=== PATIENT | male | born 1955 | race Hispanic/Latino ===

== ENCOUNTER 2021-06-13 10:35 | Inpatient (IN) | payer OTHER ==
[2021-06-13] MEDS ORDERED: FAMOTIDINE 20 MG/2 ML VIAL IV ONE ×2 (12:17→23:11)
[2021-06-13] MEDS ORDERED: NA CHLORIDE 0.9% 1,000 ML ONE (12:17)
[2021-06-13] MEDS ORDERED: AZITHROMYCIN 500 MG INJ IVPB ONE (12:17)
[2021-06-13] MEDS ORDERED: CEFTRIAXONE 1000 MG/VIAL ONE (12:17)
[2021-06-13] MEDS ORDERED: NA CHLORIDE 0.9% 250 ML ONE (12:17)
[2021-06-13 12:24] LABS: Absolute Lymphocytes (CBC) 0.8 K/uL (0.7-4.9); Hematocrit 44.8 % (39.6-49.0); Lymphocytes % 15.2 % (15.3-44.8); MPV 8.4 fL (7.6-11.3); RBC Red Blood Cell Count 4.87 M/uL (4.33-5.43)
[2021-06-13 12:25] LABS: Protime INR 1.01
--- NOTE | 2021-06-13 12:51 | RAD REPORT ---
EXAM DESCRIPTION: RAD - Chest Single View - 06/13/2021 12:35 pm CLINICAL HISTORY: COUGH Chest pain. COMPARISON: ABDOMEN ACUTE SERIES dated 01/09/2012 FINDINGS: Portable technique limits examination quality. Moderate bibasilar lung infiltrates are present, more severe on the left, most compatible with pneumo karen. The heart is normal in size. No displaced fractures.
[2021-06-13 12:55] LABS: ALT/SGPT 135 U/L (12-78); AST/SGOT 131 U/L (15-37); Albumin 2.8 g/dL (3.4-5.0); Alkaline Phosphatase 72 U/L (45-117); BUN Blood Urea Nitrogen 12 mg/dL (7-18); Bicarbonate 28 mmol/L (21-32); Bilirubin Direct 0.2 mg/dL (0-0.2); Bilirubin Total 0.5 mg/dL (0.2-1.0); Ferritin 3979.8 ng/mL (26-388); Glucose Level 98 mg/dL (74-106); Magnesium 2.5 mg/dL (1.8-2.4); NT PRO-BNP 58 pg/mL (<125); Potassium 3.7 mmol/L (3.5-5.1); Protein, Total 8.3 g/dL (6.4-8.2); Sodium Level 136 mmol/L (136-145); Troponin (Emerg Dept Use Only) < 0.02 ng/mL (0.0-0.045)
[2021-06-13 14:26] LABS: SARS-COV-2 RT PCR POSITIVE (NEGATIVE)
--- NOTE | 2021-06-13 14:45 | EDPHYS ---
Physician Documentation [facility] Name: Ye Coleman Age: 66 yrs Sex: Male : 1955 Arrival Date: 06/13/2021 Time: 10:37 Bed 17 Private MD: TIFFANY Physician Lloyd Donohue HPI: 06/13 14:37 This 66 yrs old Male presents to ER via Ambulatory with complaints of Cough, feroz General Weakness, Shortness Of Breath. 14:37 The patient or guardian reports cough, difficulty breathing, flu symptoms, arthralgias, feroz low-grade fever, myalgias. Onset: The symptoms/episode began/occurred 10 day(s) ago. Severity of symptoms: At their worst the symptoms were moderate, in the emergency department the symptoms are unchanged. Modifying factors: The symptoms are alleviated by nothing, the symptoms are aggravated by nothing. The patient has not experienced similar symptoms in the past. Historical: - Allergies: 11:34 No Known Allergies; iw - Home Meds: 11:34 None [Active]; iw - PMHx: 11:34 None; iw - PSHx: 11:34 Appendectomy; iw - Immunization history:: Client reports having NOT received the Covid vaccine. - Social history:: Smoking status: Patient/guardian denies using tobacco. ROS: 14:38 Constitutional: Negative for fever, chills, and weight loss, Eyes: Negative for injury, feroz pain, redness, and discharge, ENT: Negative for injury, pain, and discharge, Neck: Negative for injury, pain, and swelling, Abdomen/GI: Negative for abdominal pain, nausea, vomiting, diarrhea, and constipation, Back: Negative for injury and pain, : Negative for injury, bleeding, discharge, and swelling, MS/Extremity: Negative for injury and deformity, Skin: Negative for injury, rash, and discoloration, Neuro: Negative for headache, weakness, numbness, tingling, and seizure, Psych: Negative for depression, anxiety, suicide ideation, homicidal ideation, and hallucinations, Allergy/Immunology: Negative for hives, rash, and allergies, Endocrine: Negative for neck swelling, polydipsia, polyuria, polyphagia, and marked weight changes, Hematologic/Lymphatic: Negative for swollen nodes, abnormal bleeding, and unusual bruising. 14:38 Cardiovascular: Positive for palpitations. 14:38 Respiratory: Positive for orthopnea, shortness of breath, wheezing, expiratory. Exam: 14:38 Constitutional: This is a well developed, well nourished patient who is awake, alert, feroz and in no acute distress. Head/Face: Normocephalic, atraumatic. Eyes: Pupils equal round and reactive to light, extra-ocular motions intact. Lids and lashes normal. Conjunctiva and sclera are non-icteric and not injected. Cornea within normal limits. Periorbital areas with no swelling, redness, or edema. ENT: Nares patent. No nasal discharge, no septal abnormalities noted. Tympanic membranes are normal and external auditory canals are clear. Oropharynx with no redness, swelling, or masses, exudates, or evidence of obstruction, uvula midline. Mucous membranes moist. Neck: Trachea midline, no thyromegaly or masses palpated, and no cervical lymphadenopathy. Supple, full range of motion without nuchal rigidity, or vertebral point tenderness. No Meningismus. Chest/axilla: Normal chest wall appearance and motion. Nontender with no deformity. No lesions are appreciated. Cardiovascular: Regular rate and rhythm with a normal S1 and S2. No gallops, murmurs, or rubs. Normal PMI, no JVD. No pulse deficits. Abdomen/GI: Soft, non-tender, with normal bowel sounds. No distension or tympany. No guarding or rebound. No evidence of tenderness throughout. Back: No spinal tenderness. No costovertebral tenderness. Full range of motion. Male : Normal genitalia with no discharge or lesions. Skin: Warm, dry with normal turgor. Normal color with no rashes, no lesions, and no evidence of cellulitis. MS/ Extremity: Pulses equal, no cyanosis. Neurovascular intact. Full, normal range of motion. Neuro: Awake and alert, GCS 15, oriented to person, place, time, and situation. Cranial nerves II-XII grossly intact. Motor strength 5/5 in all extremities. Sensory grossly intact. Cerebellar exam normal. Normal gait. Psych: Awake, alert, with orientation to person, place and time. Behavior, mood, and affect are within normal limits. 14:38 ECG was reviewed by the Attending Physician. 14:38 Respiratory: mild respiratory distress is noted, Respirations: labored breathing, that is mild, Breath sounds: decreased breath sounds, rhonchi, wheezing: expiratory Respiratory rate: 24 Vital Signs: 11:33 BP 131 / 81; Pulse 96; Resp 20; Temp 98.0; Pulse Ox 88% on R/A; Weight 63.5 kg; Height iw 5 ft. 6 in. (167.64 cm); 12:31 BP 139 / 79; Pulse 94; Resp 20; Pulse Ox 94% on 3 lpm NC; jl7 13:15 BP 111 / 75; Pulse 91; Resp 21; Pulse Ox 95% 3 lpm ; jl7 14:00 BP 118 / 71; Pulse 88; Resp 22; Pulse Ox 95% ; jl7 14:45 BP 120 / 67; Pulse 85; Resp 19; Pulse Ox 94% on 3 lpm NC; jl7 15:30 BP 124 / 80; Pulse 85; Resp 20; Pulse Ox 95% on 3 lpm NC; jl7 16:15 BP 105 / 68; Pulse 81; Resp 21; Pulse Ox 95% on 3 lpm NC; jl7 20:11 BP 106 / 65; Pulse 72; Resp 18; Pulse Ox 97% on R/A; tw5 23:18 BP 121 / 70; Pulse 69; Resp 18; Pulse Ox 93% on 3 lpm NC; tw5 /04 00:32 BP 105 / 62; Pulse 65; Resp 18; Temp 97.9; Pulse Ox 95% 4 lpm ; sv1 03:00 BP 120 / 70; Pulse 65; Resp 18; Pulse Ox 95% 4 lpm ; Pain 0/10; sv1 10:56 BP 132 / 72; Pulse 84; Resp 18; Pulse Ox 95% on 2 lpm NC; arnold 06/13 11:33 Body Mass Index 22.60 (63.50 kg, 167.64 cm) iw MDM: 06/13 11:36 Patient medically screened. feroz 14:39 Differential diagnosis: Anemia Bronchitis CHF exacerbation, Chronic Obstructive feroz Pulmonary Disease CHF, URI, pneumonia, pulmonary edema, Pulmonary Embolism reactive airway disease, Sepsis Unstable Angina. Antibiotic administration: Rocephin and Zithromax given. The patient's Wells Deep Vein Thrombosis Score was calculated as follows: Total Score: 0-2 Pts- Low Risk. Differential Diagnosis: Bronchitis Influenza Upper Respiratory Infection Sinusitis Pharyngitis Allergic Rhinitis Asthma Exacerbation Viral Syndrome Pneumonia. The patient's pulmonary embolism risk score was calculated as follows: Total Score: 0-2 points. This patient was found to be at low risk for a pulmonary embolism by using the Well's assessment criteria. Immunization status: Pneumococcal vaccine: Influenza vaccine: Data reviewed: vital signs, nurses notes, lab test result(s), EKG, radiologic studies, plain films. Data interpreted: front desk monitor: rate is 94 beats/min, rhythm is regular, Pulse oximetry: on room air is 94 %. Test interpretation: by ED physician or midlevel provider: ECG, plain radiologic studies. Counseling: I had a detailed discussion with the patient and/or guardian regarding: the historical points, exam findings, and any diagnostic results supporting the discharge/admit diagnosis, lab results, radiology results, the need for further work-up and treatment in the hospital. 06/13 11:58 Order name: Basic Metabolic Panel [facility] 06/13 11:58 Order name: CBC with Diff [facility] 06/13 11:58 Order name: LFT's [facility] 06/13 11:58 Order name: Magnesium [facility] 06/13 11:58 Order name: NT PRO-BNP [facility] 06/13 11:58 Order name: PT-INR [facility] 06/13 11:58 Order name: Troponin (emerg Dept Use Only) [facility] 06/13 11:58 Order name: Blood Culture Adult (2) [facility] 06/13 11:58 Order name: Ferritin; Complete Time: 14:36 [facility] 06/13 11:58 Order name: CRP; Complete Time: 14:36 [facility] 06/13 11:58 Order name: COVID-19/FLU A+B/RSV (Document "Date of Onset" if Symptomatic); Complete [facility] Time: 14:36 06/13 11:58 Order name: Lactate; Complete Time: 14:36 [facility] 06/13 11:58 Order name: Procalcitonin; Complete Time: 14:36 [facility] 06/13 11:59 Order name: Urine Culture [facility] 06/13 11:58 Order name: XRAY Chest (1 view); Complete Time: 14:36 [facility] 06/13 11:59 Order name: Basic Metabolic Panel; Complete Time: 14:36 EDDE 06/13 11:59 Order name: CBC with Automated Diff; Complete Time: 14:36 EDDE 06/13 11:59 Order name: Liver (Hepatic) Function; Complete Time: 14:36 EDDE 06/13 11:59 Order name: Magnesium; Complete Time: 14:36 EDMS 06/13 11:59 Order name: NT PRO-BNP; Complete Time: 14:36 EDMS 06/13 11:59 Order name: Protime (+INR); Complete Time: 14:36 EDMS 06/13 11:59 Order name: Troponin (Emerg Dept Use Only); Complete Time: 14:36 EDMS 06/14 03:08 Order name: CBC with Automated Diff EDMS 06/14 03:24 Order name: D-Dimer EDMS 06/14 03:50 Order name: Phosphorus EDMS 06/14 03:50 Order name: C-Reactive Protein EDMS 06/14 03:50 Order name: Magnesium EDMS 06/14 03:50 Order name: Ferritin EDMS 06/14 04:25 Order name: CBC Smear Scan EDMS 06/14 07:35 Order name: Comprehensive Metabolic Panel EDMS 06/13 11:58 Order name: EKG; Complete Time: 11:59 [facility] 06/13 11:58 Order name: Cardiac monitoring; Complete Time: 12:11 [facility] 06/13 11:58 Order name: EKG - Nurse/Tech; Complete Time: 12:11 [facility] 06/13 11:58 Order name: IV Saline Lock; Complete Time: 12:11 [facility] 06/13 11:58 Order name: Labs collected and sent; Complete Time: 12:11 [facility] 06/13 11:58 Order name: O2 Per Protocol; Complete Time: 12:10 [facility] 06/13 11:58 Order name: O2 Sat Monitoring; Complete Time: 12:10 [facility] 06/14 09:13 Order name: CT EDMS EC:38 Rate is 94 beats/min. Rhythm is regular. QRS [place] is Normal. [place] interval is normal. QRS ferzo interval is normal. QT interval is normal. No Q waves. T waves are Normal. No ST changes noted. Clinical impression: NSR w/ Non-specific ST/T Changes and No evidence of ischemia. Interpreted by me. Reviewed by me. Administered Medications: 12:32 Drug: Pepcid (famotidine) 20 mg Route: IVP; Site: left forearm; jl7 12:45 Follow up: Response: No adverse reaction jl7 12:32 Drug: Rocephin (cefTRIAXone) 1 grams Route: IV; Rate: per protocol; Site: left forearm; jl7 12:35 Follow up: Response: No adverse reaction; IV Status: Completed infusion 7 12:32 Drug: NS 0.9% 1000 ml Route: IV; Rate: 125 ml/hr; Site: left forearm; 7 16:37 Follow up: Response: No adverse reaction; IV Status: Infusion continued upon admission 7 12:35 Drug: Zithromax (azithromycin) 500 mg Route: IVPB; Infused Over: 1 hrs; Site: right jl7 forearm; 13:35 Follow up: Response: No adverse reaction; IV Status: Completed infusion 7 15:15 Drug: Aspirin Chewable Tablet 324 mg Route: PO; 6 16:04 Follow up: Response: No adverse reaction [facility] 06/14 00:36 Follow up: Response: No adverse reaction sv1 02:05 Follow up: Response: No adverse reaction sv1 03 15:15 Drug: Lovenox (enoxaparin) 60 mg Route: Sub-Q; Site: right upper arm; 6 16:04 Follow up: Response: No adverse reaction [facility] 06/14 00:35 Follow up: Response: No adverse reaction sv1 02:05 Follow up: Response: No adverse reaction sv1 03 15:16 Drug: SOLU-Medrol (methylPrednisoLONE) 125 mg Route: IVP; Site: left antecubital; [facility] 16:04 Follow up: Response: No adverse reaction [facility] 06/14 00:36 Follow up: Response: No adverse reaction; Wheezing diminished sv1 Disposition Summary: 06/13/21 14:44 Hospitalization Ordered Hospitalization Status: Inpatient Admission feroz Provider: Albino Butt cha Condition: Fair feroz Problem: new feroz Symptoms: have worsened feroz Bed/Room Type: Standard feroz Location: Telemetry/MedSurg (Inpatient)(06/14/21 17:16) dw Room Assignment: [facility](06/14/21 17:16) dw Diagnosis - Coronavirus infection, unspecified feroz - Pneumonia due to SARS-associated coronavirus feroz - Dyspnea feroz - Hypoxemia feroz Forms: - Medication Reconciliation Form feroz - SBAR form feroz Signatures: Dispatcher [employer] EDMS Anastasiya Osborne RN RN mw Woody, Diana, RN RN dw Anderson, Corey, MD MD cha Williams, Irene, RN RN iw Leal, Jahala, RN RN jl7 Bibi Mckeon RN RN jh6 Gerardo Logan RN sv1 Corrections: (The following items were deleted from the chart) 06/13 19:54 14:44 Telemetry/MedSurg (observation) [facility] 19:54 14:44 [facility] 06/14 17:16 06/13 19:54 [facility] 06/14 17:16 06/13 19:54 [facility]- dw
--- NOTE | 2021-06-13 14:45 | ER ---
Nurse's Notes [facility] Name: Ye Coleman Age: 66 yrs Sex: Male : 1955 Arrival Date: 06/13/2021 Time: 10:37 Bed 17 Private MD: Diagnosis: Coronavirus infection, unspecified;Pneumonia due to SARS-associated coronavirus;Dyspnea;Hypoxemia Presentation: 06/13 11:33 Chief complaint: Patient states: past three weeks has been feeling bad with fever , iw sometimes SOB, cough. Coronavirus screen: Client presents with at least one sign or symptom that may indicate coronavirus-19. Ebola Screen: Patient negative for fever greater than or equal to 101.5 degrees Fahrenheit, and additional compatible Ebola Virus Disease symptoms Patient denies exposure to infectious person. Patient denies travel to an Ebola-affected area in the 21 days before illness onset. No symptoms or risks identified at this time. Initial Sepsis Screen: Does the patient meet any 2 criteria? No. Patient's initial sepsis screen is negative. Does the patient have a suspected source of infection? No. Patient's initial sepsis screen is negative. Risk Assessment: Do you want to hurt yourself or someone else? Patient reports no desire to harm self or others. Onset of symptoms was June 07, 2021. 11:33 Method Of Arrival: Ambulatory iw 11:33 Acuity: EDMOND 3 iw Triage Assessment: 06/14 10:55 General: Appears in no apparent distress. Respiratory: Reports shortness of breath on arnold exertion when pt get up his O2 drops to 87-88 Respiratory: Reports Onset: The symptoms/episode began/occurred gradually. Historical: - Allergies: 06/13 11:34 No Known Allergies; iw - Home Meds: 11:34 None [Active]; iw - PMHx: 11:34 None; iw - PSHx: 11:34 Appendectomy; iw - Immunization history:: Client reports having NOT received the Covid vaccine. - Social history:: Smoking status: Patient/guardian denies using tobacco. Screenin:31 Abuse screen: Denies threats or abuse. Denies injuries from another. Nutritional jl7 screening: No deficits noted. Tuberculosis screening: No symptoms or risk factors identified. Fall Risk IV access (20 points). Total Ryan Fall Scale indicates No Risk (0-24 pts). Assessment: 12:36 General: Appears in no apparent distress. uncomfortable, Behavior is calm, cooperative, jl7 appropriate for age. Pain: Denies pain. Neuro: Level of Consciousness is awake, alert, obeys commands, Oriented to person, place, time, situation. Cardiovascular: Heart tones present Rhythm is sinus rhythm. Respiratory: Airway is patent Respiratory effort is even, unlabored, Respiratory pattern is regular, symmetrical, Breath sounds with crackles bilaterally. Breath sounds are diminished in right posterior middle lobe and right posterior lower lobe. Derm: Skin is pink, warm \T\ dry. 19:17 Reassessment: Sandee Coleman, pts son, . jl7 20:11 General: Appears in no apparent distress. comfortable, Behavior is calm. Respiratory: tw5 Airway is patent Trachea midline Respiratory effort is even, unlabored, Respiratory pattern is regular. 23:18 General: Appears in no apparent distress. Behavior is calm, cooperative. tw5 06/14 06:55 Reassessment: Slept most of the night. Vital signs appear stable. . sv1 10:56 Reassessment: upon assessment pt O2 lying position is 93-95 on 2L NC. when sitting pt arnold up pt O2 drops to 87-[address] O2 2l NC back on PT and O2 went up 94. Vital Signs: 06/13 11:33 BP 131 / 81; Pulse 96; Resp 20; Temp 98.0; Pulse Ox 88% on R/A; Weight 63.5 kg; Height iw 5 ft. 6 in. (167.64 cm); 12:31 BP 139 / 79; Pulse 94; Resp 20; Pulse Ox 94% on 3 lpm NC; jl7 13:15 BP 111 / 75; Pulse 91; Resp 21; Pulse Ox 95% 3 lpm ; jl7 14:00 BP 118 / 71; Pulse 88; Resp 22; Pulse Ox 95% ; jl7 14:45 BP 120 / 67; Pulse 85; Resp 19; Pulse Ox 94% on 3 lpm NC; jl7 15:30 BP 124 / 80; Pulse 85; Resp 20; Pulse Ox 95% on 3 lpm NC; jl7 16:15 BP 105 / 68; Pulse 81; Resp 21; Pulse Ox 95% on 3 lpm NC; jl7 20:11 BP 106 / 65; Pulse 72; Resp 18; Pulse Ox 97% on R/A; tw5 23:18 BP 121 / 70; Pulse 69; Resp 18; Pulse Ox 93% on 3 lpm NC; tw5 06/14 00:32 BP 105 / 62; Pulse 65; Resp 18; Temp 97.9; Pulse Ox 95% 4 lpm ; sv1 03:00 BP 120 / 70; Pulse 65; Resp 18; Pulse Ox 95% 4 lpm ; Pain 0/10; sv1 10:56 BP 132 / 72; Pulse 84; Resp 18; Pulse Ox 95% on 2 lpm NC; arnold 06/13 11:33 Body Mass Index 22.60 (63.50 kg, 167.64 cm) iw ED Course: 06/13 10:37 Patient arrived in ED. am2 11:34 Triage completed. iw 11:36 Lloyd Donohue MD is Attending Physician. feroz 11:36 Arm band placed on. iw 11:38 Nan Ford, RN is Primary Nurse. jl7 11:55 First set of blood cultures drawn by me. Missed attempt(s): 20 gauge in left forearm. jl7 Bleeding controlled, band aid applied, catheter tip intact. 11:59 Inserted saline lock: 20 gauge in left forearm, using aseptic technique. Blood jl7 collected. 11:59 Initial lab(s) drawn, by me, sent to lab. Second set of blood cultures drawn by me. jl7 COVID swab sent to lab. Flu and/or RSV swab sent to lab. 12:11 EKG done, by ED staff, reviewed by Lloyd Donohue MD. dh3 12:31 Patient has correct armband on for positive identification. Placed in gown. Bed in low jl7 position. Call light in reach. Side rails up X 1. safety investigator on. Pulse ox on. NIBP on. 12:32 Basic Metabolic Panel Sent. jl7 12:32 CBC with Diff Sent. jl7 12:32 LFT's Sent. jl7 12:32 Magnesium Sent. jl7 12:32 NT PRO-BNP Sent. jl7 12:32 PT-INR Sent. jl7 12:32 Troponin (emerg Dept Use Only) Sent. jl7 12:35 XRAY Chest (1 view) In Process Unspecified. EDMS 14:43 Albino Butt is Hospitalizing Provider. feroz 19:15 Primary Nurse role handed off by Nan Ford RN mw2 19:16 Nan Ford RN is Primary Nurse. [facility] 19:17 No provider procedures requiring assistance completed. Patient admitted, IV remains in [facility] place. intact, No redness/swelling at site. 20:11 Appears to be sleeping. tw5 20:11 Door closed. Noise minimized. Lights dimmed. Moved to private room. Warm blanket given. tw5 Verbal reassurance given. Administered Medications: 12:32 Drug: Pepcid (famotidine) 20 mg Route: IVP; Site: left forearm; [facility] 12:45 Follow up: Response: No adverse reaction [facility] 12:32 Drug: Rocephin (cefTRIAXone) 1 grams Route: IV; Rate: per protocol; Site: left forearm; [facility] 12:35 Follow up: Response: No adverse reaction; IV Status: Completed infusion [facility] 12:32 Drug: NS 0.9% 1000 ml Route: IV; Rate: 125 ml/hr; Site: left forearm; [facility] 16:37 Follow up: Response: No adverse reaction; IV Status: Infusion continued upon admission [facility] 12:35 Drug: Zithromax (azithromycin) 500 mg Route: IVPB; Infused Over: 1 hrs; Site: right [facility] forearm; 13:35 Follow up: Response: No adverse reaction; IV Status: Completed infusion [facility] 15:15 Drug: Aspirin Chewable Tablet 324 mg Route: PO; 6 16:04 Follow up: Response: No adverse reaction [facility] 06/14 00:36 Follow up: Response: No adverse reaction sv1 02:05 Follow up: Response: No adverse reaction sv1 06/13 15:15 Drug: Lovenox (enoxaparin) 60 mg Route: Sub-Q; Site: right upper arm; [facility] 16:04 Follow up: Response: No adverse reaction [facility] 06/14 00:35 Follow up: Response: No adverse reaction sv1 02:05 Follow up: Response: No adverse reaction sv1 06/13 15:16 Drug: SOLU-Medrol (methylPrednisoLONE) 125 mg Route: IVP; Site: left antecubital; [facility] 16:04 Follow up: Response: No adverse reaction [facility] 06/14 00:36 Follow up: Response: No adverse reaction; Wheezing diminished sv1 Outcome: 06/13 14:44 Decision to Hospitalize by Provider. feroz 19:17 Admitted to ER Hold. Please see [facility] for further documentation. [facility] 19:17 Condition: stable 19:17 Discharge instructions given to patient, family, Instructed on the need for admit, Demonstrated understanding of instructions. 06/14 18:44 Patient left the ED. arnold Signatures: Dispatcher [employer] EDLloyd Love MD MD cha Williams, Irene, RN RN Nan Ford RN RN jl7 Roxana Powers [facility] Neelam Rodriguez 3 Erick Askew 2 Carol Milton 5 Bibi Mckeon RN RN jh6 Gerardo Logan RN RN sv1 Au-StagerColleen RN RN arnold Corrections: (The following items were deleted from the chart) 06/13 11:35 11:33 Temp 98.0F; [facility] 16:36 12:15 Zithromax (azithromycin) 500 mg IVPB in right forearm over 1 hrs [facility] jl7 16:37 13:15 Response: No adverse reaction; IV Status: Completed infusion 7 jl7 06/14 12:35 10:56 Reassessment: upon assessment pt O2 drops to 87-88 from lying to sitting. arnold arnold
[2021-06-13] MEDS ORDERED: METHYLPREDNISOLONE 125 MG INJ ONE (15:09)
[2021-06-13] MEDS ORDERED: ENOXAPARIN 60 MG/0.6 ML SQ ONE (15:09)
[2021-06-13] MEDS ORDERED: ASPIRIN EC 81 MG TAB PO ONE (15:09)
--- NOTE | 2021-06-13 16:43 | P.HP ---
Certification for Inpatient Patient admitted to: Observation With expected LOS: <2 Midnights Practitioner: I am a practitioner with admitting privileges, knowledge of patient current condition, hospital course, and medical plan of care. Services: Services provided to patient in accordance with Admission requirements found in Title 42 Section 412.3 of the Code of Federal Regulations Patient History Date of Service: 06/13/21 Reason for admission: Shortness of breath History of Present Illness: 66-year-old gentleman with no known past medical history presents to the emergency department with a complaint of progressive shortness of breath of about 2 weeks duration. Patient also reports cough productive of greenish sputum. Symptoms preceded by upper respiratory symptoms including nasal congestion and fever. Patient reports shortness of breath only with exertion. His oxygen saturation in the ED is 88% on room air. Patient was placed on oxygen by nasal cannula. Chest x-ray demonstrated bilateral infiltrates, severe on the left. Patient has no sepsis, no leukocytosis. Liver enzymes elevated. Patient is hospitalized for further management. Allergies No Known Allergies Allergy (Verified 01/09/12 14:21) Home Medications: Hydrocodone/Acetaminophen [Vicodin 5-500 Tablet] 1 - 2 each PO Q4HP PRN #30 tablet 01/10/12 - Past Medical/Surgical History Diabetic: No -: None - Social History Smoking Status: Former smoker Alcohol use: Yes CD- Drugs: No Caffeine use: Yes Review of Systems Other: Except as documented, all other systems reviewed and negative. Physical Examination - Physical Exam General: Alert, In no apparent distress, Oriented x3 HEENT: Normocephalic, PERRLA, Mucous membr. moist/pink, Sclerae nonicteric Neck: Supple, JVD not distended Respiratory: Normal air movement, Crackles/rales Cardiovascular: No edema, Regular rate/rhythm, Normal S1 S2, No murmurs Gastrointestinal: Normal bowel sounds, Soft and benign, Non-distended, No tenderness Musculoskeletal: No swelling, No tenderness Integumentary: No rashes, No erythema, No cyanosis Neurological: Normal speech, Normal strength at 5/5 x4 extr, Cranial nerves 3-12 intact Lymphatics: No axilla or inguinal lymphadenopathy - Studies Laboratory Data (last 24 hrs) 06/13/21 11:59: PT 11.6, INR 1.01 06/13/21 11:59: WBC 5.50, Hgb 14.7, Hct 44.8, Plt Count 266 06/13/21 11:59: Sodium 136, Potassium 3.7, BUN 12, Creatinine 0.98, Glucose 98, Magnesium 2.5 H, Total Bilirubin 0.5, AST 131 H, ALT 135 H, Alkaline Phosphatase 72 Assessment and Plan - Problems (Diagnosis) (1) Pneumonia due to COVID-19 virus Current Visit: Yes Status: Acute (2) Acute respiratory failure with hypoxia Current Visit: Yes Status: Acute - Plan Place under observation. COVID-19 protocol initiated with IV steroid. Vitamins and zinc supplementation. Oxygen as needed. Assess for home oxygen if patient respiratory status condition remained stable by tomorrow. Patient was reluctant for admission and would like to be discharged as soon as possible. Consult to pulmonary. Monitor inflammatory markers. - Advance Directives Does patient have a Living Will: No Does patient have a Durable POA for Healthcare: No
[2021-06-13] MEDS ORDERED: ACETAMINOPHEN 500 MG TAB PO PRN (18:54)
[2021-06-13 19:07] VITALS: BMI 22.6
[2021-06-13] MEDS: FAMOTIDINE 20 MG/2 ML VIAL IV SCH (21:00)
[2021-06-13] MEDS: METHYLPREDNISOLONE 40 MG INJ IV SCH (21:00)
[2021-06-13] MEDS ORDERED: METHYLPREDNISOLONE 40 MG INJ ONE (23:11)
[2021-06-14 02:59] LABS: Absolute Lymphocytes (CBC) 0.6 K/uL (0.7-4.9); Hematocrit 41.4 % (39.6-49.0); Lymphocytes % 26.4 % (15.3-44.8); MPV 8.1 fL (7.6-11.3)
[2021-06-14 03:50] LABS: Ferritin 3283.1 ng/mL (26-388); Magnesium 2.8 mg/dL (1.8-2.4); Phosphorus 3.2 mg/dL (2.5-4.9)
[2021-06-14 04:24] LABS: Blood Morphology Comment NOT SEEN (NOT SEEN); Platelet Estimate ADEQ; White Blood Cell Scan OK (OK)
[2021-06-14 07:35] LABS: ALT/SGPT 116 U/L (12-78); AST/SGOT 100 U/L (15-37); Albumin 2.3 g/dL (3.4-5.0); Alkaline Phosphatase 62 U/L (45-117); BUN Blood Urea Nitrogen 17 mg/dL (7-18); Bicarbonate 27 mmol/L (21-32); Bilirubin Total 0.4 mg/dL (0.2-1.0); Glucose Level 158 mg/dL (74-106); Potassium 4.3 mmol/L (3.5-5.1); Protein, Total 7.4 g/dL (6.4-8.2); Sodium Level 139 mmol/L (136-145)
[2021-06-14] MEDS: METHYLPREDNISOLONE 40 MG INJ IV SCH ×2 (09:00→21:00)
[2021-06-14] MEDS: ENOXAPARIN 40 MG/0.4 ML SQ SCH ×2 (09:00)
[2021-06-14] MEDS ORDERED: PNEUMOCOCCAL VACCINE 0.5 ML IMVAC ONE (09:00)
[2021-06-14] MEDS ORDERED: INFLUENZA VACCINE (for 6+ mo) 0.5 ML DOSE IMVAC ONE (09:00)
[2021-06-14] MEDS: FAMOTIDINE 20 MG/2 ML VIAL IV SCH ×3 (09:00→21:00)
--- NOTE | 2021-06-14 09:12 | RAD REPORT ---
EXAM DESCRIPTION: CT - Chest Angio - 06/14/2021 7:09 am CLINICAL HISTORY: Cough COMPARISON: June 13, 2020 TECHNIQUE: Dynamically enhanced axial 3 mm thick images of the chest were obtained during administra tion of <100> mL Isovue 370 IV contrast. Coronal and oblique reconstruction images were generated and reviewed. Exam utilizes a protocol for optimal evaluation of pulmonary arterial tree. Maximum intensity projections 3D imaging was utilized All CT scans are performed using dose optimization technique as appropriate and may include automated exposure control or mA/KV adjustment according to patient size. FINDINGS: A pulmonary embolus is not seen. A thoracic aortic aneurysm is not noted. A pleural effusion is not seen. A pericardial effusion is not seen. Moderate left and [id number] right ground-glass opacities within the lungs. 16 millimeter nodul e right upper lobe. Borderline mediastinal lymphadenopathy IMPRESSION: Negative for a pulmonary embolism. Moderate left and [id number] right ground-glass opacities may represent Covid pneumonia 16 millimeter right upper lobe nodule may be infectious, inflammatory or neoplastic and can be monito red on subsequent examinations.
[2021-06-14] MEDS ORDERED: METHYLPREDNISOLONE 40 MG INJ ONE (10:36)
[2021-06-14] MEDS ORDERED: FAMOTIDINE 20 MG TAB ONE (10:37)
[2021-06-14] MEDS ORDERED: ENOXAPARIN 40 MG/0.4 ML SQ ONE (10:37)
--- NOTE | 2021-06-14 11:18 | EKG ---
Test Date: 2021-06-13 Test Time: 11:58:01 Rn Imaging: SHARDA MEASUREMENT RESULTS: Intervals: Rate: 94 OH: 142 QRSD: 76 QT: 356 QTc: 445 [place]: P: 35 OH: 142 QRS: 22 T: -7 INTERPRETIVE STATEMENTS: Normal sinus rhythm Normal ECG Compared to ECG 01/09/2012 06:15:14 No significant changes Electronically Signed On 06-14-21 11:14:23 HEALTH SERVICES ADMINISTRATOR by Matthew Tierney
--- NOTE | 2021-06-14 16:37 | P.CNS ---
Date of Consult: 06/14/21 Reason for Consult: COVID pneumonia Chief Complaint: Shortness of breath History of Present Illness: pt is 66 yrs of age [place] island[place] speaking only AW covid penumonia, progressive SOB and cough wants to go homeVery agitated Allergies No Known Allergies Allergy (Verified 01/09/12 14:21) Home Medications: NK [No Home Meds] 06/13/21 - Past Medical/Surgical History Diabetic: No -: None - Social History Smoking Status: Former smoker Alcohol use: Yes CD- Drugs: No Caffeine use: Yes Review of Systems is unable to be obtained Physical Examination General: Alert, Cooperative Respiratory: Clear to auscultation bilaterally, Diminished Cardiovascular: No edema, Regular rate/rhythm Laboratory Data (last 24 hrs) 06/14/21 02:26: Sodium 139, Potassium 4.3, BUN 17, Creatinine 0.69, Glucose 158 H, Total Bilirubin 0.4, AST 100 H, ALT 116 H, Alkaline Phosphatase 62 06/14/21 02:26: Phosphorus 3.2, Magnesium 2.8 H 06/14/21 02:26: WBC 2.10 L D, Hgb 13.7, Hct 41.4, Plt Count 254 - Problems (1) Pneumonia due to COVID-19 virus Current Visit: Yes Status: Acute Plan: AGe 66 AW COVID penumonia. Cond stabel Labs and Ct reviewed. RUL opacity Needs FU with F/u Ct in 1 month/ Former smoker High riks RUL lesion poss cancer/ Desat on sitting up CW steroids for now
--- NOTE | 2021-06-14 17:49 | P.PN ---
Date of Service: 06/14/21 Subjective: Feels little bit better today, breathing slightly easier Oxygen requirement increased Denies nausea/vomiting Upset that he did not eat much yesterday Feels like he may do better at home ROS: 10 point ROS as noted above, otherwise negative Physical exam GEN: Alert, oriented, NAD HEENT: Normal conjunctiva, sclera anicteric CV: Regular rate and rhythm, no edema Pulm: Mildly labored respirations on 3 L nasal cannula, SpO2: 90-92% at rest ABD: Soft, nontender, nondistended Integumentary: No rashes Neuro: Normal speech, normal affect Problem List Acute hypoxemic respiratory failure secondary to COVID-19 pneumonia Elevated D-dimer Continue steroids, vitamin supplementation Wean oxygen as tolerated Oxygen requirement increased overnight Inflammatory markers with some improvement but still remains significantly elevated Patient with desaturation down to lowmid 80s just with sitting up in bed to eat Patient will need to be discharged soon as possible, discussed high risk for the next 24 hours Pulmonology consulted Elevated D-dimer this morning, CTA ordered Dispo: Anticipate DC home tomorrow if he has some improvement. Will need home oxygen Time Spent Managing Pts Care (In Minutes): 35
[2021-06-15 04:11] LABS: Absolute Lymphocytes (CBC) 0.6 K/uL (0.7-4.9); Hematocrit 40.8 % (39.6-49.0); Lymphocytes % 9.6 % (15.3-44.8); MPV 8.3 fL (7.6-11.3); RBC Red Blood Cell Count 4.38 M/uL (4.33-5.43)
[2021-06-15 04:29] LABS: Potassium 3.9 mmol/L (3.5-5.1)
[2021-06-15 07:27] LABS: Ferritin 3011.1 ng/mL (26-388)
[2021-06-15 08:23] VITALS: O2SAT 94
[2021-06-15] MEDS: FAMOTIDINE 20 MG/2 ML VIAL IV SCH (08:49)
[2021-06-15] MEDS: METHYLPREDNISOLONE 40 MG INJ IV SCH (08:49)
[2021-06-15] MEDS: ENOXAPARIN 40 MG/0.4 ML SQ SCH (08:50)
[2021-06-15] MEDS ORDERED: POTASSIUM CL SA 10 MEQ TAB PO ONE (09:00)
[2021-06-15 10:16] VITALS: BP 111/63; TEMP 97.2
--- NOTE | 2021-06-15 18:01 | P.DS ---
Admission Date: 06/14/21 Discharge Date: 06/15/21 Disposition: ROUTINE DISCHARGE Discharge Condition: GOOD Reason for Admission: Shortness of breath Consultations: Pulmonology - Dr. Royal Procedures: CXR (06/12): Moderate bibasilar lung infiltrates are present, more severe on the left, most compatible with pneumonia. The heart is normal in size. No displaced fractures. CTA chest (06/14): IMPRESSION: Negative for a pulmonary embolism. Moderate left and abxm-lm-[id number] right ground-glass opacities may represent Covid pneumonia 16 millimeter right upper lobe nodule may be infectious, inflammatory or neoplastic and can be monitored on subsequent examinations. Problem List Acute hypoxemic respiratory failure secondary to COVID-19 pneumonia Brief History of Present Illness: 66-year-old gentleman with no known past medical history presents to the emergency department with a complaint of progressive shortness of breath of about 2 weeks duration. Patient also reports cough productive of greenish sputum. Symptoms preceded by upper respiratory symptoms including nasal congestion and fever. Patient reports shortness of breath only with exertion. His oxygen saturation in the ED is 88% on room air. Patient was placed on oxygen by nasal cannula. Chest x-ray demonstrated bilateral infiltrates, severe on the left. Patient has no sepsis, no leukocytosis. Liver enzymes elevated. Patient is hospitalized for further management. Hospital Course: Patient was treated with steroids, vitamin supplementation, and oxygen supplementation. He had gradual improvement of his symptoms and his inflammatory markers. Pulmonology was consulted. On day of discharge, patient was feeling better, stable on 2 L nasal cannula, asking to be discharged home. He is to follow-up with his PCP within 1 week Follow-up with Dr. Neves in [address] chest did not have a right upper lobe lesion/possible mass, he will need repeat CT chest in 1 month. This was discussed with the patient and his son Vital Signs/Physical Exam: Physical exam GEN: Alert, oriented, NAD HEENT: Normal conjunctiva, sclera anicteric CV: Regular rate and rhythm, no edema Pulm: Mildly labored respirations on 2 L nasal cannula, SpO2: 92-95% at rest ABD: Soft, nontender, nondistended Neuro: Normal speech, normal affect Temp Pulse Resp BP Pulse Ox 97.2 F 75 18 111/63 92 06/15/21 08:00 06/15/21 08:00 06/15/21 08:00 06/15/21 08:00 06/15/21 08:00 Laboratory Data at Discharge: WBC 6.40 K/uL (4.3-10.9) D 06/15/21 02:58 Hgb 13.5 g/dL (13.6-17.9) L 06/15/21 02:58 Hct 40.8 % (39.6-49.0) 06/15/21 02:58 Plt Count 344 K/uL (152-406) D 06/15/21 02:58 PT 11.6 SECONDS (9.5-12.5) 06/13/21 11:59 INR 1.01 06/13/21 11:59 Sodium 140 mmol/L (136-145) 06/15/21 02:58 Potassium 3.9 mmol/L (3.5-5.1) 06/15/21 02:58 BUN 21 mg/dL (7-18) H 06/15/21 02:58 Creatinine 0.88 mg/dL (0.55-1.3) 06/15/21 02:58 Glucose 155 mg/dL (74-106) H 06/15/21 02:58 Phosphorus 3.2 mg/dL (2.5-4.9) 06/14/21 02:26 Magnesium 3.0 mg/dL (1.8-2.4) H 06/15/21 02:58 Total Bilirubin 0.4 mg/dL (0.2-1.0) 06/14/21 02:26 AST 100 U/L (15-37) H 06/14/21 02:26 ALT 116 U/L (12-78) H 06/14/21 02:26 Alkaline Phosphatase 62 U/L (45-117) 06/14/21 02:26 Home Medications: Aspirin [Aspirin EC 81 MG] 81 mg PO DAILY 30 Days #30 tablet. 06/15/21 predniSONE [Prednisone*] 20 mg PO SEECOM 14 Days #21 tab 06/15/21 New Medications: Aspirin [Aspirin EC 81 MG] 81 mg PO DAILY 30 Days #30 tablet. predniSONE [Prednisone*] 20 mg PO SEECOM 14 Days #21 tab Physician Discharge Instructions: COVID pneumonia - discharged home with steroids and aspirin follow up with Dr. Royal in 2 weeks. You were noted to have a small area in the right upper lung concerning for a possible mass/lesion. This may be from infection, scar tissue, or possibly a tumor. Follow up with Dr. Royal, you will also need a repeat CT scan of your chest to re-evaluate that area after you recover from this COVID pneumonia. Quarantine for 7 more days. Use the Oxygen to keep your oxygen saturation > 90% Diet: Regular Activity: Ad selena Followup: Skinny Royal MD [ACTIVE - CAN ADMIT] - (Call to schedule appointment ) NONE,NONE [Primary Care Provider] - Time spent managing pt's care (in minutes): 45
== END 2021-06-15 09:50 | disposition home or self-care (01) | DRG 177 ==
LOC: ER 10:35 → ERHOLD 16:27 → OBSVTOIN 06-14 09:08 → 4TH 06-14 18:16
PROVIDERS: ADMIT Internal Medicine; ATTEND Hospitalist
DX: U07.1 COVID-19 (principal); J12.82 Pneumonia due to coronavirus disease 2019; J96.01 Acute respiratory failure with hypoxia; Z87.891 Personal history of nicotine dependence; Z79.82 Long term (current) use of aspirin; Z79.52 Long term (current) use of systemic steroids
CPT/HCPCS: 0241U; 36415; 71045; 71275; 80048; 80053; 80076; 82728; 83605; 83735; 83880; 84100; 84145; 84484; 85025; 85379; 85610; 86140; 87040; 93005; 94760; 96372; 99285; G0378; J0456; J1650; J2920; J2930; J7030; J7050; Q9967

== ENCOUNTER 2021-06-17 11:27 | Emergency (ER) | payer OTHER ==
[2021-06-17 13:27] LABS: Absolute Lymphocytes (CBC) 0.5 K/uL (0.7-4.9); Hematocrit 44.1 % (39.6-49.0); Lymphocytes % 7.1 % (15.3-44.8); MPV 7.6 fL (7.6-11.3); RBC Red Blood Cell Count 4.86 M/uL (4.33-5.43)
[2021-06-17 13:29] LABS: Protime INR 0.93
--- NOTE | 2021-06-17 13:36 | RAD REPORT ---
EXAM DESCRIPTION: RAD - Chest Single View - 06/17/2021 1:29 pm CLINICAL HISTORY: SOB COMPARISON: Chest Single View dated 06/13/2021; ABDOMEN ACUTE SERIES dated 01/09/2012; Chest Angio date d 06/14/2021 FINDINGS: Lines: None. Lungs: Worsening bilateral airspace disease which is eccentric to the left. There are areas of both p atchy opacities and more consolidative process. Pleural: No significant pleural effusions or pneumothorax. Cardiac: The heart size is within normal limits. Bones: No acute fractures. Other: IMPRESSION: Worsening airspace disease concerning for multifocal pneumonia, probably Covid-19.
[2021-06-17 13:49] LABS: ALT/SGPT 256 U/L (12-78); AST/SGOT 198 U/L (15-37); Albumin 2.8 g/dL (3.4-5.0); Alkaline Phosphatase 81 U/L (45-117); BUN Blood Urea Nitrogen 16 mg/dL (7-18); Bicarbonate 26 mmol/L (21-32); Bilirubin Direct 0.2 mg/dL (0-0.2); Bilirubin Total 0.6 mg/dL (0.2-1.0); Glucose Level 119 mg/dL (74-106); Magnesium 2.7 mg/dL (1.8-2.4); NT PRO-BNP 407 pg/mL (<125); Potassium 3.9 mmol/L (3.5-5.1); Protein, Total 7.6 g/dL (6.4-8.2); Sodium Level 137 mmol/L (136-145); Troponin (Emerg Dept Use Only) < 0.02 ng/mL (0.0-0.045)
[2021-06-17 13:58] LABS: Blood Morphology Comment NOT SEEN (NOT SEEN); Platelet Estimate INCR; White Blood Cell Scan OK (OK)
--- NOTE | 2021-06-17 14:01 | EDPHYS ---
Physician Documentation [facility] Name: Ye Coleman Age: 66 yrs Sex: Male : 1955 Arrival Date: 06/17/2021 Time: 11:29 Bed 23 Private MD: ED Physician Florentino Beaulieu HPI: 06/17 13:29 This 66 yrs old Male presents to ER via Ambulatory with complaints of sp3 Shortness Of Breath. 13:29 66-year-old male with no significant long-term past medical history but recently sp3 diagnosed with COVID-19 and sent home on home O2 now presents with recurrent shortness of breath while ambulating. This was a same pattern as before and while patient was ambulating he did not have his oxygen on. Patient has been coached on ensuring that his O2 is on and that his symptoms are likely based from his COVID-19 that is still ongoing. Patient denies headache, neck pain, chest pain, abdominal pain, nausea, vomiting, diarrhea, fever, rash, syncope, neuro symptoms, any other ROS at this time. Patient was just seen and discharged 3 days ago.. Historical: - Allergies: 11:43 No Known Allergies; tw2 - Home Meds: 11:43 None [Active]; tw2 - PSHx: 11:43 Appendectomy; tw2 - Immunization history:: Client reports having NOT received the Covid vaccine. - Social history:: Smoking status: Patient denies any tobacco usage or history of. ROS: 13:31 Constitutional: Negative for fever, chills, and weight loss, Eyes: Negative for injury, sp3 pain, redness, and discharge, ENT: Negative for injury, pain, and discharge, Neck: Negative for injury, pain, and swelling, Abdomen/GI: Negative for abdominal pain, nausea, vomiting, diarrhea, and constipation, Back: Negative for injury and pain, MS/Extremity: Negative for injury and deformity, Skin: Negative for injury, rash, and discoloration, Neuro: Negative for headache, weakness, numbness, tingling, and seizure, Endocrine: Negative for neck swelling, polydipsia, polyuria, polyphagia, and marked weight changes, Hematologic/Lymphatic: Negative for swollen nodes, abnormal bleeding, and unusual bruising. 13:31 All other systems are negative. Exam: 13:32 Constitutional: This is a well developed, well nourished patient who is awake, alert, sp3 and in no acute distress. Head/Face: Normocephalic, atraumatic. Eyes: Pupils equal round and reactive to light, extra-ocular motions intact. Lids and lashes normal. Conjunctiva and sclera are non-icteric and not injected. Cornea within normal limits. Periorbital areas with no swelling, redness, or edema. ENT: Nares patent. No nasal discharge, no septal abnormalities noted. External auditory canals are clear. Oropharynx with no redness, swelling, or masses, exudates, or evidence of obstruction, uvula midline. Mucous membranes moist. Neck: Trachea midline, no thyromegaly or masses palpated, and no cervical lymphadenopathy. Supple, full range of motion without nuchal rigidity, or vertebral point tenderness. No Meningismus. Chest/axilla: Normal chest wall appearance and motion. Nontender with no deformity. No lesions are appreciated. Cardiovascular: Regular rate and rhythm with a normal S1 and S2. No gallops, murmurs, or rubs. Normal PMI, no JVD. No pulse deficits. Respiratory: Lungs have equal breath sounds bilaterally, clear to auscultation and percussion. No rales, rhonchi or wheezes noted. No increased work of breathing, no retractions or nasal flaring. Abdomen/GI: Soft, non-tender, with normal bowel sounds. No distension or tympany. No guarding or rebound. No evidence of tenderness throughout. Back: No spinal tenderness. No costovertebral tenderness. Full range of motion. Skin: Warm, dry with normal turgor. Normal color with no rashes, no lesions, and no evidence of cellulitis. MS/ Extremity: Pulses equal, no cyanosis. Neurovascular intact. Full, normal range of motion. Neuro: Awake and alert, GCS 15, oriented to person, place, time, and situation. Cranial nerves II-XII grossly intact. Motor strength 5/5 in all extremities. Sensory grossly intact. Cerebellar exam normal. Normal gait. Psych: Awake, alert, with orientation to person, place and time. Behavior, mood, and affect are within normal limits. Vital Signs: 11:45 BP 147 / 87; Pulse 92; Resp 17; Temp 99.2(TE); Pulse Ox 86% on 1 lpm NC; Weight 68.04 tw2 kg (R); 13:02 BP 131 / 83; Pulse 80; Resp 18; Temp 97.8(O); Pulse Ox 95% on 2 lpm NC; Weight 65.77 arnold kg; Height 5 ft. 2 in. (157.48 cm); 13:02 Body Mass Index 26.52 (65.77 kg, 157.48 cm) arnold 11:45 pt placed on our o2 at 3L. both nasal cannula probes placed in nostrils. pt improved to tw2 94% MDM: 13:17 Patient medically screened. sp3 13:32 Data reviewed: vital signs, nurses notes. ED course: Will obtain work-up and assess for sp3 any abnormalities. If work-up is negative will discharge patient home. Clinically have ruled out bacterial pneumonia, pulmonary embolism, thoracic aortic dissection, or any other critical findings at this time.. 14:00 ED course: 3 shows worsening COVID-19 pneumonia however labs show no significant sp3 abnormality. Patient's O2 requirement is still at 2 L and we will discharge patient home with continued recovery at home. Patient or stands that they can come back at any time if symptoms worsen. Correct oxygen wearing technique was also demonstrated and patient has been educated in Greek.. 06/17 12:57 Order name: Basic Metabolic Panel; Complete Time: 13:58 sp3 06/17 12:57 Order name: CBC with Diff sp3 06/17 12:57 Order name: LFT's; Complete Time: 13:58 sp3 06/17 12:57 Order name: Magnesium; Complete Time: 13:58 sp3 06/17 12:57 Order name: NT PRO-BNP; Complete Time: 13:58 sp3 06/17 12:57 Order name: PT-INR; Complete Time: 13:58 sp3 06/17 12:57 Order name: Troponin (emerg Dept Use Only); Complete Time: 13:58 sp3 06/17 12:57 Order name: XRAY Chest (1 view); Complete Time: 13:58 sp3 06/17 12:57 Order name: EKG; Complete Time: 12:58 sp3 06/17 12:57 Order name: Cardiac monitoring; Complete Time: 13:19 sp3 06/17 12:57 Order name: EKG - Nurse/Tech; Complete Time: 13:26 sp3 06/17 12:57 Order name: IV Saline Lock; Complete Time: 13:19 sp3 06/17 12:57 Order name: Labs collected and sent; Complete Time: 13:19 sp3 06/17 13:58 Order name: CBC Smear Scan EDND 06/17 12:57 Order name: O2 Per Protocol; Complete Time: 13:19 sp3 06/17 12:57 Order name: O2 Sat Monitoring; Complete Time: 13:19 sp3 Administered Medications: No medications were administered Disposition Summary: 06/17/21 14:01 Discharge Ordered Location: Home sp3 Condition: Stable sp3 Diagnosis - Pneumonia due to SARS-associated coronavirus sp3 Followup: sp3 - With: Private Physician - When: As needed - Reason: Continuance of care Discharge Instructions: - Discharge Summary Sheet sp3 - 10 Things You Can Do to Manage Your COVID-19 Symptoms at Home - [facility] sp3 Forms: - Medication Reconciliation Form sp3 - Thank You Letter sp3 - Antibiotic Education sp3 - Prescription Opioid Use sp3 Signatures: Dispatcher [employer] EDEmily Larose RN RN tw2 Florentino Beaulieu MD MD sp3
--- NOTE | 2021-06-17 14:01 | ER ---
Nurse's Notes [facility] Name: Ye Coleman Age: 66 yrs Sex: Male : 1955 Arrival Date: 06/17/2021 Time: 11:29 Bed 23 Private MD: Diagnosis: Pneumonia due to SARS-associated coronavirus Presentation: 06/17 11:45 Chief complaint: Patient states: difficulty breathing, sob x 16 days. was discharged tw2 06/15/2021 with COVID pneumonia. pt dc with O2 on 2L nc. pt reported that when he walks he has SOB. Coronavirus screen: difficulty breathing, shortness of breath, Client presents with at least one sign or symptom that may indicate coronavirus-19. Standard/surgical mask placed on the client. Provider contacted for isolation considerations. Client reports previous positive COVID test result. Ebola Screen: Patient denies travel to an Ebola-affected area in the 21 days before illness onset. Initial Sepsis Screen: Does the patient meet any 2 criteria? No. Patient's initial sepsis screen is negative. Does the patient have a suspected source of infection? No. Patient's initial sepsis screen is negative. Risk Assessment: Do you want to hurt yourself or someone else? Patient reports no desire to harm self or others. Onset of symptoms was June 17, 2021. 11:45 Method Of Arrival: Ambulatory tw2 11:45 Acuity: EDMOND 3 tw2 Triage Assessment: 11:50 General: Appears in no apparent distress. Behavior is calm, cooperative, appropriate tw2 for age. Pain: Denies pain. Respiratory: Reports shortness of breath at rest on exertion Onset: The symptoms/episode began/occurred 18 days, the patient has moderate shortness of breath. Historical: - Allergies: 11:43 No Known Allergies; tw2 - Home Meds: 11:43 None [Active]; tw2 - PSHx: 11:43 Appendectomy; tw2 - Immunization history:: Client reports having NOT received the Covid vaccine. - Social history:: Smoking status: Patient denies any tobacco usage or history of. Screenin:00 Abuse screen: Denies threats or abuse. Denies injuries from another. Nutritional arnold screening: No deficits noted. Tuberculosis screening: No symptoms or risk factors identified. Fall Risk Secondary diagnosis (15 points) SOB. Assessment: 13:00 Cardiovascular: Reports shortness of breath, Rhythm is regular. Respiratory: Airway is arnold patent Respiratory effort is even, unlabored, Breath sounds are clear Breath sounds are diminished bilaterally. Vital Signs: 11:45 BP 147 / 87; Pulse 92; Resp 17; Temp 99.2(TE); Pulse Ox 86% on 1 lpm NC; Weight 68.04 tw2 kg (R); 13:02 BP 131 / 83; Pulse 80; Resp 18; Temp 97.8(O); Pulse Ox 95% on 2 lpm NC; Weight 65.77 arnold kg; Height 5 ft. 2 in. (157.48 cm); 13:02 Body Mass Index 26.52 (65.77 kg, 157.48 cm) arnold 11:45 pt placed on our o2 at 3L. both nasal cannula probes placed in nostrils. pt improved to tw2 94% ED Course: 11:29 Patient arrived in ED. as 11:50 Triage completed. tw2 11:50 Arm band placed on. tw2 12:52 Florentino Beaulieu MD is Attending Physician. sp3 13:00 Bed in low position. arnold 13:00 No provider procedures requiring assistance completed. arnold 13:19 Basic Metabolic Panel Sent. arnold 13:19 CBC with Diff Sent. arnold 13:19 LFT's Sent. arnold 13:19 Magnesium Sent. arnold 13:19 NT PRO-BNP Sent. arnold 13:19 PT-INR Sent. arnold 13:19 Troponin (emerg Dept Use Only) Sent. arnold 13:29 XRAY Chest (1 view) In Process Unspecified. EDMS 14:18 Inserted saline lock: 20 gauge in right forearm, using aseptic technique. IV arnold discontinued, intact, Pressure dressing applied. Administered Medications: No medications were administered Outcome: 14:01 Discharge ordered by . sp3 14:18 Discharged to home arnold 14:18 Condition: good 14:18 Discharge instructions given to patient, family. 14:18 Patient left the ED. arnold Signatures: Dispatcher [employer] EDMS Silvia Andino Tara, RN RN tw2 Florentino Beaulieu MD MD sp3 Au-StagerColleen RN RN arnold Corrections: (The following items were deleted from the chart) 13:00 11:45 Chief complaint: Patient states: difficulty breathing, sob x 16 days. was arnold discharged 06/15/2021 with COVID pneumonia. on 2L nc tw2
[2021-06-17 14:30] VITALS: BP 131/83; TEMP 97.8; O2SAT 95
== END 2021-06-17 14:18 | disposition home or self-care (01) ==
LOC: ER 11:27
DX: U07.1 COVID-19 (principal); J12.82 Pneumonia due to coronavirus disease 2019
CPT/HCPCS: 36415; 71045; 80048; 80076; 83735; 83880; 84484; 85025; 85610; 99283

== ENCOUNTER 2022-02-20 09:16 | Day surgery (SDC) | payer OTHER ==
[2022-02-20 10:08] LABS: Absolute Lymphocytes (CBC) 1.5 K/uL (0.7-4.9); Hematocrit 40.2 % (39.6-49.0); Lymphocytes % 28.3 % (15.3-44.8); MCV 90.5 fL (80-100); MPV 7.3 fL (7.6-11.3); RBC Red Blood Cell Count 4.44 M/uL (4.33-5.43)
[2022-02-20 10:16] LABS: Protime INR 0.94
[2022-02-20 10:29] LABS: Albumin 3.4 g/dL (3.4-5.0); Bilirubin Total 0.3 mg/dL (0.2-1.0); Potassium 3.7 mmol/L (3.5-5.1); Protein, Total 7.8 g/dL (6.4-8.2)
[2022-02-20] MEDS ORDERED: NA CHLORIDE 0.9% 1,000 ML ONE (10:29)
[2022-02-20] MEDS ORDERED: MIDAZOLAM HCL 2 MG/2 ML INJ ONE (10:37)
[2022-02-20] MEDS ORDERED: FENTANYL CITR 100 MCG/2 ML ONE (10:37)
--- NOTE | 2022-02-20 13:02 | RAD REPORT ---
EXAM DESCRIPTION: CT - Lung Biopsy Perc w/CT - 02/20/2022 11:53 am CLINICAL HISTORY: LUNG BX Enlarging right lung mass. COMPARISON: Multiple prior studies were reviewed. FINDINGS: Preoperative diagnosis: Right lung mass Post operative diagnosis: Same Conscious Sedation: 45 minutes of IV conscious sedation was utilized with fentanyl and midazolam. Patient was continuously monitored by nursing staff. Contrast used: NONE Estimated blood loss: less than 5 mL Specimens: 2 cm 18 gauge core biopsy specimen The patient was placed supine on the table and the superior upper right chest area was prepped and dr aped in the usual sterile fashion. 1% lidocaine was infiltrated into the subcutaneous tissues for loc al anesthesia. Under computed tomographic guidance, a 17 gauge introducer was advanced into the lesio n. Subsequently, a 18 gauge, 16 cm long, 20 mm throw core biopsy gun was advanced into the lesion and single core biopsy was obtained. Postprocedure imaging demonstrated no complications. Samples were given to pathology for analysis. Th e patient tolerated the procedure without immediate complication and transferred to the recovery room in stable condition. IMPRESSION: Successful CT-guided right lung mass biopsy. 45 minutes of IV conscious sedation was utilized. All CT scans are performed using dose optimization technique as appropriate and may include automated exposure control or mA/KV adjustment according to patient size.
[2022-02-20 13:26] VITALS: BMI 23.6
[2022-02-20 14:07] VITALS: BP 134/67; TEMP 97.2; O2SAT 99
--- NOTE | 2022-02-20 14:51 | RAD REPORT ---
EXAM DESCRIPTION: APRILMelody Single View02/20/2022 2:27 pm CLINICAL HISTORY: Right lung biopsy IMPRESSION: No right pneumothorax status post biopsy
== END 2022-02-20 15:12 | disposition home or self-care (01) ==
LOC: DS 09:16
PROVIDERS: ATTEND Internal Medicine Sleep Medicine
PROC: 0BDC4ZX Extraction of Right Upper Lung Lobe, Percutaneous Endoscopic Approach, Diagnostic (ICD-10-PCS; principal; 2022-02-20)
DX: R91.8 Other nonspecific abnormal finding of lung field (principal)
CPT/HCPCS: 85025; 36415; 85610; 88305; 85730; 80053; 77012; 71045; 32408; J2250; J3010; J7030

== ENCOUNTER 2022-08-27 20:49 | Emergency (ER) | payer OTHER ==
--- OUTSIDE RECORDS SUMMARY | 2022-08-27 20:58 | XMS REPORT | Continuity of Care Document ---
:1955 Author Organization [facility] t Address [address] [place] [address] [address] [place] [address] Care Team Providers Name Role Phone ERNST DOTSONEVAN JERABDIAS Primary Care Physician Unavailable IZABELA GALVAN Attending Clinician Unavailable Izabela Galvan MD Attending Clinician King Elkins MD Attending Clinician Iraj AMANDA, Lauro Love Attending Clinician Francisco Rosenberg Attending Clinician FRANCISCO ROSENBERG Attending Clinician Unavailable WILIAN ALCAZAR Attending Clinician Unavailable Izabela Galvan MD Attending Clinician Rohan Lara MD Attending Clinician Jesús Larsen Attending Clinician Unavailable IZABELA GALVAN Attending Clinician Unavailable IZABELA GALVAN Admitting Clinician Unavailable Payers Payer Name Policy Type Policy Number Effective Date Expiration Date S te [employer] MEDICARE [id number] 2021 00:00:00 MEDICAID [facility] [id number] 2022 00:00:00 [employer] DUAL [id number] [facility] GOLD PLUS [id number] MEDICARE/HMO [facility]-MED[facility] - [id number] MEDICAID Problems Condition Condition Condition Status Onset Resolution Last Treating Co mments Source Name Details Category Date Date Treatment Clinician Date Lung Lung Disease Recurre 2023-[address] [facility] [address] [facility] 3[facility] RUL NSCLC RUL NSCLC Disease Recurre [facility]p R s[facility]p R nce [facility]02 [facility] thoracotom thoracotom 00:00: Me dical y, RUL/RML y, RUL/RML 00 Ce nter bilobectom bilobectom y, MLND y, MLND 08/15/2022 08/15/2022 Malignant Malignant Disease Active [facility] neoplasm neoplasm [facility] upper 00:00: of lobe of lobe of 00 Medicin right lung right lung e Allergies, Adverse Reactions, Alerts Allergy Allergy Status Severity Reaction(s) Onset Inactive Treating Comm ents Source Name Type Date Date Clinician NO KNOWN Allergy Active [facility] Social History Social Habit Start Date Stop Date Quantity Comments Source History of tobacco Current smoker [facility] History [facility] Alcohol intake 2022-08-15 2022-08-15 [facility]00 of alcohol [facility] Center (finding) History [facility] 2022-08-15 2022-08-[address] [facility] Transport Med 00:00:00 00:00:[address] [facility] 2022-08-15 2022-08-[address] [facility] Housing Unable to 00:00:00 00:00:00 Medical Center Pay History [facility] 2022-08-15 2022-08-[address] [facility] Housing Places 00:00:00 00:00:00 Medical Ce nter Lived History [facility] 2022-08-15 2022-08-[address] [facility] Housing Homeless 00:00:00 00:00:00 Medical Center Last Year Exposure to 2022-08-04 2022-08-[address] [facility] SARS-CoV-2 (event) 00:00:00 20:08:00 [facility] Cigarettes smoked 2022-07-05 2022-07-[address] [facility] current (pack per 00:00:00 00:00:00 Medical Center day) - Reported Tobacco use and 2022-07-05 2022-07-05 Smokeless tobacco [facility] exposure 00:00:00 00:00:00 non-user Medical Center Tobacco Comment 2022-07-05 2022-07-05 quit- [address] [facility] [facility] 00:00:00 00:00:00 [facility] Cigarette 2022-06-28 2022-06-28 [facility] pack-years 00:00:00 00:00:00 of Medicine Alcohol Comment 2022-06-28 2022-06-28 2 beers daily [facility] 00:00:00 00:00:00 of Medicine Sex [birth year] JC Santacruz kestephanie 00:00:00 00:00:00 [facility] Center Smoking Status Start Date Stop Date Source Former smoker 2022-07-05 00:00:00 2022-07-05 00:00:00 [facility] Medications Ordered Filled Start Stop Current Ordering Indication Dosage Frequency Signature Comments Components Source Medication Medication Date Date Medication? Clinician (SIG) Name Name furosemide 2022- Yes 20mg QD Take [address] (LASIX) 20 3-18 03-21 tablet (20 [facility] MG tablet 00:00: 23:59 mg total) Me dical 00 :00 by mouth Center daily for 3 days. DULoxetine Yes 30mg QD Take [address] (CYMBALTA) 3-17 by mouth [facility] 30 MG 18:34: daily. Medical capsule 39 Center aspirin 325 Yes 325mg Q.5W Take [address] MG tablet 3-17 mg by [facility] 18:34: mouth Medical 39 twice a Center week. multivitami Yes 1{tbl} QD Take [address] [facility] per 3-17 tablet by [facility] tablet 18:34: mouth Medical 39 daily. Center lidocaine 2022- Yes 1{patch Place 1-[address] (LIDODERM) 3-17 03-31 } patches [facility] 4 % patch 00:00: 23:59 onto the Med ical 00 :00 skin daily Center as needed (pain) for up to [address] directly over any incisions. acetaminoph 2022- Yes 1000mg Take [address] en 3-17 03-27 tablets [facility] (TYLENOL) 00:00: 23:59 (1,000 mg Me dical 500 MG 00 :00 total) by Center tablet mouth every 6 (six) hours as needed for Pain for up to 10 days. amoxicillin 2022- Yes 1{tbl} Q.5D Take [address] -clavulanat 08-25 tablet by [facility] e 00:00: 23:59 mouth 2 Medical (AUGMENTIN) 00 :00 (two) Center 875-125 mg times per tablet daily for 10 days. oxyCODONE 2022- Yes 5mg Take 1 [facility] (ROXICODONE 08-25 tablet (5 [facility] ) 5 MG 00:00: 23:59 mg total) Medic al immediate 00 :00 by mouth Center release every 4 tablet (four) hours as needed for up to 10 days. Max Daily Amount: 30 mg gabapentin 2022- Yes 100mg [id number] Take [address] (NEURONTIN) 08-25 [id number] capsule [facility] 100 MG 00:00: 23:59 3D (100 mg Medical capsule 00 :00 total) by Center mouth 3 (three) times daily for 7 days. polyethylen 2022- Yes 17g Take [address] e glycol 08-25 by mouth [facility] (GLYCOLAX) 00:00: 23:59 daily as Me dical 17 gram 00 :00 needed Center packet (constipat ion) for up to 7 days. DULoxetine Yes 30mg QD Take [address] (CYMBALTA) 3-06 by mouth [facility] 30 MG 20:05: daily. Medical capsule 52 [place] aspirin 325 Yes 325mg Q.5W Take [address] MG tablet 3-06 mg by [facility]ukes 20:05: mouth Medical 52 twice a Center week. multivitami Yes 1{tbl} QD Take [address] [facility] per 3-06 tablet by [facility] tablet 20:05: mouth Medical 52 daily. [place] sildenafil Yes 50mg Take 50 mg [facility] citrate 2-16 by mouth College (VIAGRA) 50 15:24: as needed o f MG tablet 10 for Medicin Erectile e Dysfunctio n. aspirin 325 Yes 1{tbl} Take 1 [facility] MG TBEC 2-16 Tablet by [place] 15:24: mouth of 10 every 3 Medicin days. e Multiple Yes Take 1 [facility] Vitamins-Mi 2-16 Chew Tab Adilson ege nerals 15:24: by mouth of (ADULT ONE 10 daily. Medicin DAILY e GUMMIES OR) sildenafil Yes 50mg Take 50 mg [facility] citrate 2-08 by mouth [place] (VIAGRA) 50 14:49: as needed o f MG tablet 31 for Medicin Erectile e Dysfunctio n. aspirin 325 Yes 1{tbl} Take 1 [facility] MG TBEC 2-08 Tablet by [place] 14:49: mouth of 31 every 3 Medicin days. e Multiple Yes Take 1 [facility] Vitamins-Mi 2-08 Chew Tab [facility] ege nerals 14:49: by mouth of (ADULT ONE 31 daily. Medicin DAILY e GUMMIES OR) DULoxetine Yes 30mg QD Take [address] (CYMBALTA) 2-02 by mouth [facility] 30 MG 16:28: daily. Medical capsule 00 [place] aspirin 325 0 Yes 325mg Q.5W Take [address] MG tablet 2-02 mg by [facility]ukes 16:28: mouth Medical 00 twice a [place] week. multivitami Yes 1{tbl} QD Take [address] n per 2-02 tablet by [facility] tablet 16:28: mouth Medical 00 daily. [place] DULoxetine Yes 30mg QD Take [address] (CYMBALTA) 2-02 by mouth [facility] 30 MG 16:28: daily. Medical capsule 00 [place] aspirin 325 0 Yes 325mg Q.5W Take [address] MG tablet 2-02 mg by [facility]ukes 16:28: mouth Medical 00 twice a [place] week. multivitami 0 Yes 1{tbl} QD Take [address] n per 2-02 tablet by [facility] tablet 16:28: mouth Medical 00 daily. [place] DULoxetine Yes 30mg QD Take [address] (CYMBALTA) 2-02 by mouth [facility] 30 MG 16:28: daily. Medical capsule 00 [place] aspirin 325 0 Yes 325mg Q.5W Take [address] MG tablet 2-02 mg by [facility]ukes 16:28: mouth Medical 00 twice a [place] week. multivitami 0 Yes 1{tbl} QD Take [address] n per 2-02 tablet by [facility]ukes tablet 16:28: mouth Medical 00 daily. [place] DULoxetine 0 Yes 30mg QD Take [address] (CYMBALTA) 2-02 by mouth [facility] 30 MG 16:28: daily. Medical capsule 00 [place] aspirin 325 0 Yes 325mg Q.5W Take [address] MG tablet 2-02 mg by [facility]ukes 16:28: mouth Medical 00 twice a [place] week. multivitami Yes 1{tbl} QD Take [address] n per 2-02 tablet by [facility]ukes tablet 16:28: mouth Medical 00 daily. [place] acetaminoph 2022- Yes 1000mg Take [address] en 2- 02-12 tablets [facility] (TYLENOL) 00:00: 23:59 (1,000 mg Me dical 500 MG 00 :00 total) by Center tablet mouth every 6 (six) hours as needed for Pain for up to 10 days. acetaminoph 2022- No 1000mg Take [address] en 2-02 02-12 tablets [facility] (TYLENOL) 00:00: 23:59 (1,000 mg Me dical 500 MG 00 :00 total) by Center tablet mouth every 6 (six) hours as needed for Pain for up to 10 days. acetaminoph 2022- No 1000mg Take [address] en 2-02 02-12 tablets [facility] (TYLENOL) 00:00: 23:59 (1,000 mg Me dical 500 MG 00 :00 total) by Center tablet mouth every 6 (six) hours as needed for Pain for up to 10 days. acetaminoph 2022- No 1000mg Take [address] en 2-02 02-12 tablets [facility] (TYLENOL) 00:00: 23:59 (1,000 mg Me dical 500 MG 00 :00 total) by Center tablet mouth every 6 (six) hours as needed for Pain for up to 10 days. acetaminoph 2022- Yes 1000mg Take [address] en 07-13 02-12 tablets [facility] (TYLENOL) 00:00: 23:59 (1,000 mg Me dical 500 MG 00 :00 total) by Center tablet mouth every 6 (six) hours as needed for Pain for up to 10 days. acetaminoph 2022- No 1000mg Take [address] en 2- 02-12 tablets [facility] (TYLENOL) 00:00: 23:59 (1,000 mg Me dical 500 MG 00 :00 total) by Center tablet mouth every 6 (six) hours as needed for Pain for up to 10 days. sildenafil Yes 50mg Take 50 mg [facility] citrate 1-18 by mouth College ([facility]) 50 10:38: as needed o f MG tablet 53 for Medicin Erectile e Dysfunctio n. aspirin 325 Yes 1{tbl} Take 1 [facility] MG TBEC 1-18 Tablet by [place] 10:38: mouth of 53 every 3 Medicin days. e Multiple Yes Take 1 [facility] Vitamins-Mi 1-18 Chew Tab Adilson ege nerals 10:38: by mouth of (ADULT ONE 53 daily. Medicin DAILY e GUMMIES OR) duloxetine 2021-06 Yes 30mg Take 30 mg [facility] (CYMBALTA) 2-12 by mouth Colle ge 30 MG 00:00: daily. of capsule 00 Medicin e duloxetine 2021-06 Yes 30mg Take 30 mg [facility] (CYMBALTA) 2-12 by mouth Colle ge 30 MG 00:00: daily. of capsule 00 Medicin e duloxetine 2021-06 Yes 30mg Take 30 mg [facility] (CYMBALTA) 2-12 by mouth Colle ge 30 MG 00:00: daily. of capsule 00 Medicin e Vital Signs Vital Name Observation Time Observation Value Comments Source WEIGHT 2022-08-24 68.6 kg 08:00:00 WEIGHT 2022-08-23 62.9 kg 08:28:00 WEIGHT 2022-08-22 64.728 kg 14:32:00 WEIGHT 2022-08-19 70.9 kg 07:54:00 WEIGHT 2022-08-17 73 kg 04:00:00 WEIGHT 2022-08-16 74 kg 06:41:00 WEIGHT 2022-08-15 73 kg 17:00:00 WEIGHT 2022-08-24 68.6 kg 08:00:00 WEIGHT 2022-08-23 62.9 kg 08:28:00 WEIGHT 2022-08-22 64.728 kg 14:32:00 WEIGHT 2022-08-19 70.9 kg 07:54:00 WEIGHT 2022-08-17 73 kg 04:00:00 WEIGHT 2022-08-16 74 kg 06:41:00 WEIGHT 2022-08-15 73 kg 17:00:00 WEIGHT 2022-08-24 68.6 kg 08:00:00 WEIGHT 2022-08-23 62.9 kg 08:28:00 WEIGHT 2022-08-22 64.728 kg 14:32:00 WEIGHT 2022-08-19 70.9 kg 07:54:00 WEIGHT 2022-08-17 73 kg 04:00:00 WEIGHT 2022-08-16 74 kg 06:41:00 WEIGHT 2022-08-15 73 kg 17:00:00 HEIGHT 2022-08-09 165.1 cm 14:08:00 WEIGHT 2022-08-09 70.171 kg 14:08:00 HEIGHT 2022-08-09 165.1 cm 14:08:00 WEIGHT 2022-08-09 70.171 kg 14:08:00 HEIGHT 2022-08-09 165.1 cm 14:08:00 WEIGHT 2022-08-09 70.171 kg 14:08:00 Systolic blood 2022-07-27 [facility] Diastolic blood 2022-07-27 69 mm[Hg] [facility] ge pressure 21:27:00 of Medicine Body height 2022-07-27 165.1 cm [facility] 21:24:00 of Medicine Body weight 2022-07-27 69.854 kg [facility] 21:24:00 of Medicine BMI 2022-07-27 25.63 kg/m2 [facility] 21:24:00 of Medicine Heart rate 2022-07-19 86 /min [facility] 20:39:00 of Medicine Body temperature 2022-07-19 36.83 Tarah [facility] Adilson ege 20:39:00 of Medicine Body height 2022-07-19 165.1 cm [facility] 20:39:00 of Medicine Body weight 2022-07-19 70.308 kg wearing [place] [facility] Colle ge 20:39:00 boots of Medicine BMI 2022-07-19 25.79 kg/m2 [facility] 20:39:00 of Medicine Systolic blood 2022-07-19 130 mm[Hg] [facility] e pressure 20:39:00 of Medicine Diastolic blood 2022-07-19 76 mm[Hg] [facility] Colle ge pressure 20:39:00 of Medicine HEIGHT 2022-07-13 165.1 cm 09:12:00 HEIGHT 2022-07-13 165.1 cm 08:51:00 WEIGHT 2022-07-13 70.126 kg 08:51:00 HEIGHT 2022-07-05 165.1 cm 11:17:00 WEIGHT 2022-07-05 69.854 kg 11:17:00 HEIGHT 2022-07-13 165.1 cm 09:12:00 HEIGHT 2022-07-13 165.1 cm 08:51:00 WEIGHT 2022-07-13 70.126 kg 08:51:00 HEIGHT 2022-07-05 165.1 cm 11:17:00 WEIGHT 2022-07-05 69.854 kg 11:17:00 HEIGHT 2022-07-13 165.1 cm 09:12:00 HEIGHT 2022-07-13 165.1 cm 08:51:00 WEIGHT 2022-07-13 70.126 kg 08:51:00 HEIGHT 2022-07-05 165.1 cm 11:17:00 WEIGHT 2022-07-05 69.854 kg 11:17:00 Systolic blood 2022-06-28 127 mm[Hg] [facility] pressure 16:32:00 of Medicine Diastolic blood 2022-06-28 79 mm[Hg] [facility] Colle ge pressure 16:32:00 of Medicine Heart rate 2022-06-28 80 /min [facility] 16:32:00 of Medicine Body temperature 2022-06-28 37.56 Tar[facility] Adilson ege 16:32:00 of Medicine Body height 2022-06-28 165.1 cm [facility] 16:32:00 of Medicine Body weight 2022-06-28 69.854 kg wearing [place] [facility] Colle ge 16:32:00 boots of Medicine BMI 2022-06-28 25.63 kg/m2 [facility] 16:32:00 of Medicine Heart rate 2022-08-25 90 /min [facility] 16:00:00 Medical Center Systolic blood 2022-08-25 117 mm[Hg] [facility] pressure 15:07:00 Medical Center Diastolic blood 2022-08-25 67 mm[Hg] [facility] pressure 15:07:00 Medical Center Body temperature 2022-08-[address] [facility] 15:07:00 Medical Center Respiratory rate 2022-08-25 18 /min [facility] 15:07:00 Medical Center Oxygen saturation 2022-08-25 98 /min [facility] in Arterial blood 15:07:00 Medical Ce nter by Pulse oximetry Body weight 2022-08-[address] [facility] 08:00:00 [facility] Center BMI 2022-08-24 25.17 kg/m2 [facility] 08:00:00 Medical Center Heart rate 2022-08-15 70 /min [facility] 05:15:00 Medical Center Systolic blood 2022-08-15 127 mm[Hg] [facility] pressure 05:00:00 Medical Center Diastolic blood 2022-08-15 75 mm[Hg] [facility] pressure 05:00:00 Medical Center Body temperature 2022-08-[address] [facility] 05:00:00 Medical Center Respiratory rate 2022-08-15 16 /min [facility] 05:00:00 Medical Center Oxygen saturation 2022-08-15 99 /min [facility] in Arterial blood 05:00:00 Medical Ce nter by Pulse oximetry Body weight 2022-08-[address] [facility] 14:08:00 Medical Center BMI 2022-08-09 25.74 kg/m2 [facility] 14:08:00 Medical Center Body height 2022-08-[address] [facility] 14:08:00 Medical Center Heart rate 2022-07-13 78 /min [facility] 15:30:00 Medical Center Respiratory rate 2022-07-13 17 /min [facility] 15:30:00 Medical Center Oxygen saturation 2022-07-13 97 /min [facility] in Arterial blood 15:30:00 Medical nter by Pulse oximetry Systolic blood 2022-07-13 104 mm[Hg] [facility] pressure 15:15:00 [facility] Diastolic blood 2022-07-13 67 mm[Hg] [facility] pressure 15:15:00 [facility] Body temperature 2022-07-13 36.[address] [facility] 14:35:00 [facility] Body height 2022-07-13 165.1 cm [facility] 09:12:00 [facility] Body weight 2022-07-13 70.126 kg [facility] 08:51:00 [facility] BMI 2022-07-13 25.73 kg/m2 [facility] 08:51:00 [facility] Procedures Procedure Date / Time Performing Clinician Source Performed PT/APTT 2022-08-25 11:28[facility] / 2022-08-25 07:09:00 [facility] 2022-08-25 04:09[facility] 2022-08-25 04:09[facility] AUTO 2022-08-25 04:09[facility]00 [facility]T [facility] & AUTO 2022-08-25 04:09[facility]00 [facility] IV 2022-08-24 08:59:00 Deanna Jules [facility] XR CHEST 1 VIEW PORTABLE / 2022-08-24 06:56:00 [facility]OL[facility] 2022-08-24 03:53:00 [facility] 2022-08-24 03:53:00 [place] [facility] CBC W/PLT COUNT & AUTO 2022-08-24 03:53:00 [facility] W/[facility]T COUNT & AUTO 2022-08-24 03:53:00 [facility]CELLAVISION MANUAL DIFF) 2022-08-24 03:53:00 Sondra Shook [facility] XR CHEST 1 VIEW PORTABLE / 2022-08-23 12:17:[address] De[address] [facility] XR CHEST 1 VIEW PORTABLE / 2022-08-23 06:57:00 Sondra Shook [facility] BASIC METABOLIC PANEL 2022-08-23 03:39:00 Sondra Shook [facility] MAGNESIUM 2022-08-23 03:39:00 [facility]T [facility] & AUTO 2022-08-23 03:39:00 [facility] W/PLT COUNT & AUTO 2022-08-23 03:39:00 Sondra Shook [facility] (CELLAVISION MANUAL DIFF) 2022-08-23 03:39:00 Sondra Shook [facility] XR CHEST 1 VIEW PORTABLE / 2022-08-22 13:29:00 [facility] VIEW PORTABLE / 2022-08-22 08:18:00 Sondra Shook [facility] BASIC METABOLIC PANEL 2022-08-22 04:43:00 Sondra Shook [facility] MAGNESIUM 2022-08-22 04:43:00 [facility] W/[facility]T COUNT & AUTO 2022-08-22 04:43:00 Sondra Shook [facility] CBC W/PLT COUNT & AUTO 2022-08-22 04:43:00 Sondra Shook [facility] XR CHEST 1 VIEW PORTABLE / 2022-08-21 06:39:00 Sondra Shook [facility] BASIC METABOLIC PANEL 2022-08-21 03:48:00 Sondra Shook [facility] MAGNESIUM 2022-08-21 03:48:00 [facility] W/[facility]T COUNT & AUTO 2022-08-21 03:48:00 Sondra Shook [facility] CBC W/PLT COUNT & AUTO 2022-08-21 03:48:00 [facility] CHEST 1 VIEW PORTABLE / 2022-08-20 07:28:00 [facility]OLIC PANEL 2022-08-20 05:04:00 Sondra Shook [facility] MAGNESIUM 2022-08-20 05:04:00 [place] [facility] CBC W/PLT COUNT & AUTO 2022-08-20 05:04:00 [facility] W/PLT COUNT & AUTO 2022-08-20 05:04:00 [facility] PREPARE LEUKO-REDUCED RBC 2022-08-19 23:54:00 Sondra Shook [facility] XR CHEST 1 VIEW PORTABLE / 2022-08-19 07:09:00 Sondra Shook [facility] CBC W/PLT COUNT & AUTO 2022-08-19 04:21:00 Sondra Shook [facility] CBC W/PLT COUNT & AUTO 2022-08-19 04:21:00 Sondra Shook [facility] BASIC METABOLIC PANEL 2022-08-19 04:20:00 Sondra Shook [facility] MAGNESIUM 2022-08-19 04:20:00 [place] [facility] TRANSFUSE LEUKO-REDUCED RED 2022-08-18 12:30:00 Sondra Shook [facility] BLOOD CELLS [facility] XR CHEST 1 VIEW PORTABLE / 2022-08-18 08:24:00 [facility] BASIC METABOLIC PANEL 2022-08-18 04:03:00 [place] [facility] MAGNESIUM 2022-08-18 04:03:00 [place] [facility] CBC W/PLT COUNT & AUTO 2022-08-18 04:03:00 [place] [facility] CBC W/PLT COUNT & AUTO 2022-08-18 04:03:00 [place] [facility] POCT-GLUCOSE METER 2022-08-17 17:38:00 Mandy [facility] POCT-GLUCOSE METER 2022-08-17 11:43:00 Izabela Galvan [facility] POCT-GLUCOSE METER 2022-08-17 08:43:00 Izabela Galvan [facility] BASIC METABOLIC PANEL 2022-08-17 03:57:00 [place] [facility] MAGNESIUM 2022-08-17 03:57:00 [place] [facility] CBC W/PLT COUNT & AUTO 2022-08-17 03:57[facility]T [facility] & AUTO 2022-08-17 03:57:00 Katya Garcia [facility] (CELLAVISION MANUAL DIFF) 2022-08-17 03:57:00 Katya Garcia [facility] XR CHEST 1 VIEW PORTABLE / 2022-08-17 01:55:00 [place] [facility] POCT-GLUCOSE METER 2022-08-17 00:36:00 Izabela Galvan [facility] POCT-GLUCOSE METER 2022-08-16 17:33:00 Izabela Galvan [facility] POCT-GLUCOSE METER 2022-08-16 11:23:00 Izabela Galvan [facility] BLOOD GAS, ARTERIAL 2022-08-16 03:39:00 Ronaldo Morrison [facility] BASIC METABOLIC PANEL 2022-08-16 03:38:00 [place] [facility] MAGNESIUM 2022-08-16 03:38:00 [place] [facility] CALCIUM, IONIZED 2022-08-16 03:38:[address] [facility] CBC W/PLT COUNT & AUTO 2022-08-16 03:36:00 [place] [facility] DIFFERENTIAL [facility] CBC W/PLT COUNT & AUTO 2022-08-16 03:36:00 [facility] XR CHEST 1 VIEW PORTABLE / 2022-08-16 00:44:00 [place] [facility] HEMOGLOBIN AND HEMATOCRIT 2022-08-16 00:28:[address] [facility] POCT-GLUCOSE METER 2022-08-16 00:28:00 Izabela Galvan [facility] PHOSPHORUS 2022-08-15 16:47:00 Radha [facility] MAGNESIUM 2022-08-15 16:47:00 [facility] PO[facility]-GLUCOSE METER 2022-08-15 16:46:00 Izabela Galvan [facility] XR CHEST 1 VIEW PORTABLE / 2022-08-15 15:31:00 Radha [facility] CBC (HEMOGRAM ONLY) 2022-08-15 [facility] 2022-08-15 15:27[facility]00 [facility]15 15:[facility]00 [facility] 2022-08-15 15:27:00 [facility] RBC 2022-08-15 15:14:00 Mnady [facility] PREPARE PLASMA 2022-08-15 15:14:00 [place], Izabela [facility] RRL CRITICAL LABS 2022-08-15 14:12:29 [facility] es (ABG,NA,K,H&H,GLUCOSE) Medical C enter CALCIUM, IONIZED 2022-08-15 14:12:29 [facility] BLOOD GAS, ARTERIAL 2022-08-15 14:12:29 [facility] SODIUM NA-STAT LAB 2022-08-15 14:12:29 [facility] POTASSIUM-STAT LAB 2022-08-15 14:12:29 [facility] GLUCOSE-STAT LAB 2022-08-15 14:12:29 [facility] HGB/HCT (H&H) - STAT LAB 2022-08-15 14:12:29 [facility] RRL CRITICAL LABS 2022-08-15 13:12:23 [facility] es (ABG,NA,K,H&H,GLUCOSE) Medical C enter CALCIUM, IONIZED 2022-08-15 13:12:23 [facility] LACTIC ACID, ARTERIAL 2022-08-15 13:12:23 [facility] BLOOD GAS, ARTERIAL 2022-08-15 13:12:23 [facility] SODIUM NA-STAT LAB 2022-08-15 13:12:23 [facility] POTASSIUM-STAT LAB 2022-08-15 13:12:23 [facility] GLUCOSE-STAT LAB 2022-08-15 13:12:23 [facility] HGB/HCT (H&H) - STAT LAB 2022-08-15 13:12:23 [facility] RRL CRITICAL LABS 2022-08-15 12:00:14 Lynda Dolan [facility] (ABG,NA,K,H&H,GLUCOSE) Medical C enter CALCIUM, IONIZED 2022-08-15 12:00:14 [facility] BLOOD GAS, ARTERIAL 2022-08-15 12:00:14 [facility] SODIUM NA-STAT LAB 2022-08-15 12:00:14 [facility] POTASSIUM-STAT LAB 2022-08-15 12:00:14 [facility] GLUCOSE-STAT LAB 2022-08-15 12:00:14 [facility] HGB/HCT (H&H) - STAT LAB 2022-08-15 12:00:14 [facility] CALCIUM, IONIZED 2022-08-15 10:56:45 [facility] BLOOD GAS, ARTERIAL 2022-08-15 10:56:45 [facility] SODIUM NA-STAT LAB 2022-08-15 10:56:45 [facility] POTASSIUM-STAT LAB 2022-08-15 10:56:45 [facility] GLUCOSE-STAT LAB 2022-08-15 10:56:45 [facility] HGB/HCT (H&H) - STAT LAB 2022-08-15 10:56:45 [facility] RRL CRITICAL LABS 2022-08-15 10:56:45 [facility] es (ABG,NA,K,H&H,GLUCOSE) Medical C enter ANESTHESIA EPIDURAL BLOCK 2022-08-15 10:08:39 [facility] RRL CRITICAL LABS 2022-08-15 09:50:54 [facility] (ABG,NA,K,H&H,GLUCOSE) Medical C enter CALCIUM, IONIZED 2022-08-15 09:50:54 [facility] BLOOD GAS, ARTERIAL 2022-08-15 09:50:54 Brittni, [facility] SODIUM NA-STAT LAB 2022-08-15 09:50:54 Brittni, [facility] POTASSIUM-STAT LAB 2022-08-15 09:50:54 Brittni, [facility] GLUCOSE-STAT LAB 2022-08-15 09:50:54 [facility] HGB/HCT (H&H) - STAT LAB 2022-08-15 09:50:54 [facility] TISSUE EXAM 2022-08-15 09:30:00 Izabela Galvan [facility] PREPARE RBC 2022-08-15 09:03:00 Mandy [facility] PREPARE PLASMA 2022-08-15 09:03:00 Izabela Galvan [facility] THORACOSCOPY, WITH 2022-08-15 07:43:[address] [facility] [place] [place] THORACOTOMY 2022-08-15 07:43:00 Izabela Galvan [facility] LOBECTOMY, LUNG, OPEN 2022-08-15 07:43:00 Izabela Galvan [facility] BRONCHOSCOPY 2022-08-15 07:43:00 Izabela Galvan [facility] RESECTION, LUNG, 2022-08-15 07:43:00 Izabela Galvan [facility] THORACOTOMY APPROACH Medical [facility] ter THORACOTOMY 2022-08-15 07:30:00 Izabela Galvan [facility] LOBECTOMY, LUNG, OPEN 2022-08-15 07:30:00 Izabela Galvan [facility] BRONCHOSCOPY 2022-08-15 07:30:00 Izabela Galvan [facility] THORACOSCOPY, WITH 2022-08-15 07:30:[address] [facility] [place] [place] RESECTION, LUNG, 2022-08-15 07:30:00 Izabela Galvan [facility] THORACOTOMY APPROACH Medical [facility] BASIC METABOLIC PANEL 2022-08-15 03:25:00 Deanna Jules [facility] MAGNESIUM 2022-08-15 03:25:00 Deanna Jules [facility] PHOSPHORUS 2022-08-15 03:25:00 Deanna Jules [facility] SARS-COV2/RT-PCR ([facility] & 2022-08-15 02:18:[address] [facility] REF LABS) [facility] CBC W/PLT COUNT & AUTO 2022-08-15 02:02:00 Deanna Jules [facility] CBC W/PLT COUNT & AUTO 2022-08-15 02:02:00 RosemaryDeanna frazier [facility] CT CHEST WITH IV CONTRAST 2022-08-14 23:02:00 Izaiah Fleming [facility] BASIC METABOLIC PANEL 2022-08-14 21:07:00 Izabela Galvan [facility] CBC W/PLT COUNT & AUTO 2022-08-09 14:07:[address] [facility] COMPREHENSIVE METABOLIC 2022-08-09 14:07:00 [facility] PT/APTT 2022-08-09 14:07:[address] [facility] ABORH, MANUAL 2022-08-09 14:07:[address] [facility] CBC W/PLT COUNT & AUTO 2022-08-09 14:07:[address] [facility] NM LUNG QUANTITATIVE 2022-08-09 12:06:00 Francisco Rosenberg [facility] FUNCTION Medical Ce nter VENTILATION / PERFUSION ELECTROCARDIOGRAM COMPLETE 2022-07-27 21:34:[address] [facility] ELECTROCARDIOGRAM COMPLETE 2022-07-27 15:34:[address] [facility] TREADMILL, NO IMAGING 2022-07-27 00:00:00 [facility] XR CHEST 1 VIEW PORTABLE / 2022-07-13 15:21:00 Sondra Shook [facility] EBUS FNA REQUEST 2022-07-13 14:10:[address] [facility] FINE NEEDLE ASPIRATE BY 2022-07-13 14:10:[address] [facility] EBUS FNA REQUEST 2022-07-13 14:09:[address] [facility] FINE NEEDLE ASPIRATE BY 2022-07-13 14:09:[address] [facility] BRONCHOSCOPY 2022-07-13 12:36:00 Izabela Galvan [facility] ENDOBRONCHIAL ULTRASOUND, 2022-07-13 12:36:00 Izabela Galvan [facility] DURING DIAGNOSTIC Medical [place] BRONCHOSCOPY XR CHEST 1 VIEW PORTABLE / 2022-07-13 11:20:00 Sondra Shook [facility] ABORH, MANUAL 2022-07-13 09:20:00 Jade Larsen [facility] POCT-GLUCOSE METER 2022-07-13 09:09:00 Izabela Galvan [facility] ECG 12-LEAD 2022-07-10 13:07:[address] [facility] ECG 12-LEAD 2022-07-10 13:07:30 Unknown, H[facility] ECG 12-LEAD 2022-07-10 13:07:30 Unknown, H[facility]7 [facility] CBC W/PLT COUNT & AUTO 2022-07-10 12:58:00 Selvin Olmedo [facility] COMPREHENSIVE METABOLIC 2022-07-10 12:58:00 Selvin Olmedo [facility] PT/APTT 2022-07-10 12:58:00 Selvin Olmedo [facility] ABORH, MANUAL 2022-07-10 12:58:[address] [facility] CBC W/PLT COUNT & AUTO 2022-07-10 12:58:[address] [facility] Plan of Care Planned Activity Planned Date Details Comments Source Future Scheduled 2023-08-[address] [facility] 00:00[facility]00 [facility] (12+) [code = Tobacco Cessation Counseling and Screening (12+)] Future Scheduled 2023-08-[address] [facility] Test 00:00:00 [facility] r Screening (12+) [code = Tobacco Cessation Counseling and Screening (12+)] Future Scheduled 2023-07-[address] [facility] Test 00:00:00 [facility] Cent[facility] r Screening (12+) [code = Tobacco Cessation Counseling and Screening (12+)] Future Scheduled 2023-07-[address] [facility] Test 00:00:00 [facility] Medical Cent[facility] r Screening (12+) [code = Tobacco Cessation Counseling and Screening (12+)] Future Scheduled 2023-07-[address] [facility] Test 00:00:00 [facility] Medical Cent[facility] r Screening (12+) [code = Tobacco Cessation Counseling and Screening (12+)] Future Scheduled 2023-07-[address] [facility] Test 00:00:00 [facility] Medical Cent[facility] r Screening (12+) [code = Tobacco Cessation Counseling and Screening (12+)] Future Scheduled 2022-07-27 Screening for [facility] Test 15:25:46 malignant neoplasm of Medici ne of colon (procedure) [code = 090625849] Future Scheduled 2022-07-27 COVID-19 Vaccine [facility] Test 15:25:46 (#1) [code = of Medicine COVID-19 Vaccine (#1)] Future Scheduled 2022-07-27 TETANUS SHOT (ADULT) [facility] Test 15:25:46 [code = TETANUS SHOT of Medi cine (ADULT)] Future Scheduled 2022-07-27 BMI Follow Up Plan [facility] Test 15:25:46 [code = BMI Follow of Medici ne Up Plan] Future Scheduled 2022-07-27 Hepatitis C [facility] Ad[facility]son ege Test 15:25:46 screening of Medicine (procedure) [code = 122283346] Future Scheduled 2022-07-27 ZOSTER VACCINE (1 of [facility] Test 15:25:46 2) [code = ZOSTER of Medicin e VACCINE (1 of 2)] Future Scheduled 2022-07-27 Abdominal aortic [facility] Test 15:25:46 aneurysm screening of Medici ne (procedure) [code = 974786317] Future Scheduled 2022-07-27 Pneumococcal 65+ (1 [employer] Test 15:25:46 - PCV) [code = of Medicine Pneumococcal 65+ (1 - PCV)] Future Scheduled 2022-07-27 FLU VACCINE > 6 [facility] Test 15:25:46 MONTHS [code = FLU of Medici ne VACCINE > 6 MONTHS] Future Scheduled 2022-07-27 Medicare IPPE [facility] Test 15:25:46 (Welcome to of Medicine Medicare) [code = Medicare IPPE (Welcome to Medicare)] Future Scheduled 2022-07-27 Fall Screen [code = [employer] Test 15:25:46 Fall Screen] of Medicine Future Scheduled 2022-07-26 Screening for [facility] Test 07:59:21 malignant neoplasm of Medici ne of colon (procedure) [code = 028803753] Future Scheduled 2022-07-26 COVID-19 Vaccine [facility] Test 07:59:21 (#1) [code = of Medicine COVID-19 Vaccine (#1)] Future Scheduled 2022-07-26 TETANUS SHOT (ADULT) [facility] Test 07:59:21 [code = TETANUS SHOT of Medi cine (ADULT)] Future Scheduled 2022-07-26 BMI Follow Up Plan [facility] r [facility] Test 07:59:21 [code = BMI Follow of Medici ne Up Plan] Future Scheduled 2022-07-26 Hepatitis C [facility] Test 07:59:21 screening of Medicine (procedure) [code = 485782933] Future Scheduled 2022-07-26 ZOSTER VACCINE (1 of [facility] [employer] [facility] [employer] Test 07:59:21 2) [code = ZOSTER of Medicin e VACCINE (1 of 2)] Future Scheduled 2022-07-26 Abdominal aortic [facility] Test 07:59:21 aneurysm screening of Medici ne (procedure) [code = 572109272] Future Scheduled 2022-07-26 Pneumococcal 65+ (1 [employer] Test 07:59:21 - PCV) [code = of Medicine Pneumococcal 65+ (1 - PCV)] Future Scheduled 2022-07-26 FLU VACCINE > 6 [facility] Test 07:59:21 MONTHS [code = FLU of Medici ne VACCINE > 6 MONTHS] Future Scheduled 2022-07-26 Medicare IPPE [facility] Test 07:59:21 (Welcome to of Medicine Medicare) [code = Medicare IPPE (Welcome to Medicare)] Future Scheduled 2022-07-26 Fall Screen [code = [employer] Test 07:59:21 Fall Screen] of Medicine Future Scheduled 2022-07-19 CT CHEST W CONTRAST 1 Occurrences [facility] [employer] Test 16:00:12 [code = 88751-0] starting of Medicine 07/19/2022 until 07/19/2023 Future Scheduled 2022-07-19 NM LUNG VENTILATION 1 Occurrences [facility] [employer] Test 15:59:26 PERFUSION [code = starting of Medicin e 16391] 07/19/2022 until 01/17/2024 Future Scheduled 2022-06-29 Screening for [facility] Test 10:52:07 malignant neoplasm of Medici ne of colon (procedure) [code = 561468044] Future Scheduled 2022-06-29 COVID-19 Vaccine [facility] Test 10:52:07 (#1) [code = of Medicine COVID-19 Vaccine (#1)] Future Scheduled 2022-06-29 TETANUS SHOT (ADULT) [facility] Test 10:52:07 [code = TETANUS SHOT of Medi cine (ADULT)] Future Scheduled 2022-06-29 BMI Follow Up Plan [facility] Test 10:52:07 [code = BMI Follow of Medici ne Up Plan] Future Scheduled 2022-06-29 Hepatitis C [facility] Test 10:52:07 screening of Medicine (procedure) [code = 806390511] Future Scheduled 2022-06-29 ZOSTER VACCINE (1 of [employer] Test 10:52:07 2) [code = ZOSTER of Medicin e VACCINE (1 of 2)] Future Scheduled 2022-06-29 Abdominal aortic [facility] Test 10:52:07 aneurysm screening of Medici ne (procedure) [code = 977610682] Future Scheduled 2022-06-29 Pneumococcal 65+ (1 [employer] Test 10:52:07 - PCV) [code = of Medicine Pneumococcal 65+ (1 - PCV)] Future Scheduled 2022-06-29 Medicare Awv [facility] Test 10:52:07 (Initial) [code = of Medicin e Medicare Awv (Initial)] Future Scheduled 2022-06-29 FLU VACCINE > 6 [facility] Nabila abrams Test 10:52:07 MONTHS [code = FLU of Medici ne VACCINE > 6 MONTHS] Future Scheduled 2022-06-29 Fall Screen [code = [facility] or [place] Test 10:52:07 Fall Screen] of Medicine Future Scheduled 2022-06-[address] [facility] Test 00:[facility]:00 WELLNESS (YEAR 2 or Medical Center FIRST YEAR if no IPPE) [code = MEDICARE ANNUAL WELLNESS (YEAR 2 or FIRST YEAR if no IPPE)] Future Scheduled 2022-06-[address] [facility] Test 00:00:00 WELLNESS (YEAR 2 or Medical Center FIRST YEAR if no IPPE) [code = MEDICARE ANNUAL WELLNESS (YEAR 2 or FIRST YEAR if no IPPE)] Future Scheduled 2022-06-[address] [facility] Test 00:00:00 WELLNESS (YEAR 2 or Medical Center FIRST YEAR if no IPPE) [code = MEDICARE ANNUAL WELLNESS (YEAR 2 or FIRST YEAR if no IPPE)] Future Scheduled 2022-06-[address] [facility] Test 00:00:00 WELLNESS (YEAR 2 or Medical Center FIRST YEAR if no IPPE) [code = MEDICARE ANNUAL WELLNESS (YEAR 2 or FIRST YEAR if no IPPE)] Future Scheduled 2022-06-[address] [facility] Test 00:00:00 WELLNESS (YEAR 2 or Medical Center FIRST YEAR if no IPPE) [code = MEDICARE ANNUAL WELLNESS (YEAR 2 or FIRST YEAR if no IPPE)] Future Scheduled 2022-06-[address] [facility] Test 00:00:00 WELLNESS (YEAR 2 or Medical Center FIRST YEAR if no IPPE) [code = MEDICARE ANNUAL WELLNESS (YEAR 2 or FIRST YEAR if no IPPE)] Future Scheduled 2022-02-[address] [facility] Test 00:00:00 (#1) [code = Medical Center INFLUENZA VACCINE (#1)] Future Scheduled 2022-02-[address] [facility] Test 00:00:00 (#1) [code = Medical Center INFLUENZA VACCINE (#1)] Future Scheduled 2022-02-[address] [facility] Test 00:00:00 (#1) [code = Medical Center INFLUENZA VACCINE (#1)] Future Scheduled 2022-02-[address] [facility] Test 00:00:00 (#1) [code = Medical Center INFLUENZA VACCINE (#1)] Future Scheduled 2022-02-[address] [facility] Test 00:00:00 (#1) [code = Medical Center INFLUENZA VACCINE (#1)] Future Scheduled 2022-02-[address] [facility] Test 00:00:00 (#1) [code = Medical Center INFLUENZA VACCINE (#1)] Future Scheduled [address] [facility] Test 00:00:00 aneurysm screening Medical C enter (procedure) [code = 832486059] Future Scheduled [address] [facility] Test 00:00:00 aneurysm screening Medical C enter (procedure) [code = 137080472] Future Scheduled [address] [facility] Test 00:00:00 aneurysm screening Medical C enter (procedure) [code = 641625994] Future Scheduled [address] [facility] Test 00:00:00 aneurysm screening Medical C enter (procedure) [code = 984721519] Future Scheduled [address] [facility] Test 00:00:00 aneurysm screening Medical C enter (procedure) [code = 884688808] Future Scheduled [address] [facility] Test 00:00:00 aneurysm screening Medical C enter (procedure) [code = 312045228] Future Scheduled 2003 SHINGLES VACCINES ([address] [facility] Test 00:00:00 of 2) [code = Medical Center SHINGLES VACCINES (1 of 2)] Future Scheduled 2003 SHINGLES VACCINES ([address] [facility] Test 00:00:00 of 2) [code = Medical Center SHINGLES VACCINES (1 of 2)] Future Scheduled 2003 SHINGLES VACCINES ([address] [facility] Test 00:00:00 of 2) [code = Medical Center SHINGLES VACCINES (1 of 2)] Future Scheduled 2003 SHINGLES VACCINES ([address] [facility] Test 00:00:00 of 2) [code = Medical Center SHINGLES VACCINES (1 of 2)] Future Scheduled 2003 SHINGLES VACCINES ([address] [facility] Test 00:00:00 of 2) [code = Medical Center SHINGLES VACCINES (1 of 2)] Future Scheduled 2003 SHINGLES VACCINES ([address] [facility] Test 00:00:00 of 2) [code = Medical Center SHINGLES VACCINES (1 of 2)] Future Scheduled 1972 DTAP/TDAP/TD [facility] 00:[facility] VACCINES (1 - Tdap) Medical Center [code = DTAP/TDAP/TD VACCINES (1 - Tdap)] Future Scheduled 1972 DTAP/TDAP/TD [facility] 00:00:00 VACCINES (1 - Tdap) Medical Center [code = DTAP/TDAP/TD VACCINES (1 - Tdap)] Future Scheduled 1972 DTAP/TDAP/TD [facility] Test 00:00:00 VACCINES (1 - Tdap) Medical Center [code = DTAP/TDAP/TD VACCINES (1 - Tdap)] Future Scheduled 1972 DTAP/TDAP/TD [facility] Test 00:00:00 VACCINES (1 - Tdap) Medical Center [code = DTAP/TDAP/TD VACCINES (1 - Tdap)] Future Scheduled 1972 DTAP/TDAP/TD [facility] Test 00:00:00 VACCINES (1 - Tdap) Medical Center [code = DTAP/TDAP/TD VACCINES (1 - Tdap)] Future Scheduled 1972 DTAP/TDAP/TD [facility] Test 00:00:00 VACCINES (1 - Tdap) Medical Center [code = DTAP/TDAP/TD VACCINES (1 - Tdap)] Future Scheduled [address] [facility] Test 00:00:00 SCREENING [code = Medical Ce nter HEPATITIS C SCREENING] Future Scheduled [address] [facility] Test 00:00:00 SCREENING [code = Medical Ce nter HEPATITIS C SCREENING] Future Scheduled [address] [facility] Test 00:00:00 SCREENING [code = Medical Ce nter HEPATITIS C SCREENING] Future Scheduled [address] [facility] Test 00:00:00 SCREENING [code = Medical Ce nter HEPATITIS C SCREENING] Future Scheduled [address] [facility] Test 00:00:00 SCREENING [code = Medical Ce nter HEPATITIS C SCREENING] Future Scheduled [address] [facility] Test 00:00:00 SCREENING [code = Medical Ce nter HEPATITIS C SCREENING] Future Scheduled 1959 PNEUMOCOCCAL 65+ YRS [facility] Test 00:00:00 (1 - PCV) [code = Medical Ce nter PNEUMOCOCCAL 65+ YRS (1 - PCV)] Future Scheduled 1959 PNEUMOCOCCAL 65+ YRS [facility] Test 00:00:00 (1 - PCV) [code = Medical Ce nter PNEUMOCOCCAL 65+ YRS (1 - PCV)] Future Scheduled 1959 PNEUMOCOCCAL 65+ YRS [facility] Test 00:00:00 (1 - PCV) [code = Medical Ce nter PNEUMOCOCCAL 65+ YRS (1 - PCV)] Future Scheduled 1959 PNEUMOCOCCAL 65+ YRS [facility] Test 00:00:00 (1 - PCV) [code = Medical Ce nter PNEUMOCOCCAL 65+ YRS (1 - PCV)] Future Scheduled 1959 PNEUMOCOCCAL 65+ YRS [facility] Test 00:00:00 (1 - PCV) [code = Medical Ce nter PNEUMOCOCCAL 65+ YRS (1 - PCV)] Future Scheduled 1959 PNEUMOCOCCAL 65+ YRS [facility] Test 00:00:00 (1 - PCV) [code = Medical Ce nter PNEUMOCOCCAL 65+ YRS (1 - PCV)] Future Scheduled 1953 COVID-[address] [facility] Test 00:00:00 (#1) [code = Medical Center COVID-19 VACCINE (#1)] Future Scheduled 1953 COVID-[address] [facility] Test 00:00:00 (#1) [code = Medical Center COVID-19 VACCINE (#1)] Future Scheduled 1953 COVID-[address] [facility] Test 00:00:00 (#1) [code = Medical Center COVID-19 VACCINE (#1)] Future Scheduled 1953 COVID-[address] [facility] Test 00:00:00 (#1) [code = Medical Center COVID-19 VACCINE (#1)] Future Scheduled 1953 COVID-[address] [facility] Test 00:00:00 (#1) [code = Medical Center COVID-19 VACCINE (#1)] Future Scheduled 1953 COVID-[address] [facility] Test 00:00:00 (#1) [code = Medical Center COVID-19 VACCINE (#1)] Future Scheduled [address] [facility] 00:00:00 (combo) [code = CT Medical C enter Colonography (combo)] Future Scheduled [address] [facility] 00:00:00 malignant neoplasm Medical C enter of colon (procedure) [code = 045716322] Future Scheduled [address] [facility] Test 00:00:00 malignant neoplasm Medical C enter of colon (procedure) [code = 662367850] Future Scheduled [address] [facility] Test 00:00:00 malignant neoplasm Medical C enter of colon (procedure) [code = 711985642] Future Scheduled [address] [facility] Test 00:00:00 malignant neoplasm Medical C enter of colon (procedure) [code = 643582171] Future Scheduled [address] Sigmoidoscopy [code [facility] Test 00:00:00 = Sigmoidoscopy] [facility] Future Scheduled [address] [facility] 00:00:00 (combo) [code = CT Medical C enter Colonography (combo)] Future Scheduled [address] [facility] Test 00:00:00 malignant neoplasm Medical C enter of colon (procedure) [code = 020940887] Future Scheduled [address] [facility] Test 00:00:00 malignant neoplasm Medical C enter of colon (procedure) [code = 916234609] Future Scheduled [address] [facility] Test 00:00:00 malignant neoplasm Medical C enter of colon (procedure) [code = 164494947] Future Scheduled [address] [facility] Test 00:00:00 malignant neoplasm Medical C enter of colon (procedure) [code = 508899556] Future Scheduled [address] Sigmoidoscopy [code [facility] Test 00:00:00 = Sigmoidoscopy] [facility] Future Scheduled [address] [facility] 00:00:00 (combo) [code = CT Medical C enter Colonography (combo)] Future Scheduled [address] [facility] Test 00:00:00 malignant neoplasm Medical C enter of colon (procedure) [code = 761488151] Future Scheduled [address] [facility] Test 00:00:00 malignant neoplasm Medical C enter of colon (procedure) [code = 355253171] Future Scheduled [address] [facility] Test 00:00:00 malignant neoplasm Medical C enter of colon (procedure) [code = 761143951] Future Scheduled [address] [facility] Test 00:00:00 malignant neoplasm Medical C enter of colon (procedure) [code = 126152701] Future Scheduled 1953 Sigmoidoscopy [code [facility] Test 00:00:00 = Sigmoidoscopy] [facility] Future Scheduled [address] [facility] 00:00:00 (combo) [code = CT Medical C enter Colonography (combo)] Future Scheduled [address] [facility] Test 00:00:00 malignant neoplasm Medical C enter of colon (procedure) [code = 390458180] Future Scheduled [address] [facility] Test 00:00:00 malignant neoplasm Medical C enter of colon (procedure) [code = 687739509] Future Scheduled [address] [facility] Test 00:00:00 malignant neoplasm Medical C enter of colon (procedure) [code = 148976110] Future Scheduled [address] [facility] Test 00:00:00 malignant neoplasm Medical C enter of colon (procedure) [code = 475807387] Future Scheduled [address] Sigmoidoscopy [code [facility] Test 00:00:00 = Sigmoidoscopy] Medical [facility] Future Scheduled [address] [facility] 00:00:00 (combo) [code = CT Medical C enter Colonography (combo)] Future Scheduled [address] [facility] Test 00:00:00 malignant neoplasm Medical C enter of colon (procedure) [code = 217134167] Future Scheduled [address] [facility] Test 00:00:00 malignant neoplasm Medical C enter of colon (procedure) [code = 582139183] Future Scheduled [address] [facility] Test 00:00:00 malignant neoplasm Medical C enter of colon (procedure) [code = 593560073] Future Scheduled [address] [facility] Test 00:00:00 malignant neoplasm Medical C enter of colon (procedure) [code = 966512136] Future Scheduled [address] Sigmoidoscopy [code [facility] Test 00:00:00 = Sigmoidoscopy] Medical [facility] Future Scheduled [address] [facility] 00:00:00 (combo) [code = CT Medical C enter Colonography (combo)] Future Scheduled [address] [facility] Test 00:00:00 malignant neoplasm Medical C enter of colon (procedure) [code = 125251310] Future Scheduled [address] [facility] Test 00:00:00 malignant neoplasm Medical C enter of colon (procedure) [code = 556585320] Future Scheduled [address] [facility] Test 00:00:00 malignant neoplasm Medical C enter of colon (procedure) [code = 246001225] Future Scheduled [address] [facility] Test 00:00:00 malignant neoplasm Medical C enter of colon (procedure) [code = 944494507] Future Scheduled 1953 Sigmoidoscopy [code [facility] Test 00:00:00 = Sigmoidoscopy] Medical [facility] Encounters Start End Encounter Admission Attending Care Care Encounter Source Date/Time Date/Time Type Type Clinicians Facility Department ID 2022-07-20 Inpatient MANDY MANDY [facility] Surgery [id number] [facility] 11:33:40 IZABELA 2022-08-14 2022-08-25 Inpatient KARISHMA GALVAN [facility] Surgery [id number] [facility] 19:40:00 18:34:00 [place] 2022-08-14 2022-08-25 [facility] [id number] 19:40:00 18:34:00 Encounter [facility] 2022-08-15 2022-08-15 [facility] [id number] 07:30:00 14:57:00 Event Anita Galosh[facility] 2022-08-15 2022-08-15 [facility] [id number] 07:30:00 14:30:00 [facility] 2022-08-15 2022-08-15 [facility] [id number] 07:30:00 14:30:00 [facility] 2022-08-15 2022-08-15 [facility]est[facility] [id number] 07:30:00 07:30:00 Event Iraj Lauro [facility] 2022-08-14 2022-08-14 Travel [facility] [id number] [facility] 00:[facility]00 00:00:00 [facility] 2022-08-14 2022-08-14 Travel [facility] [id number] [facility] 00:[facility]00 00:00:00 [facility] 2022-08-09 2022-08-09 [facility] [id number] 13:48:56 23:59:00 Encounter [facility] 2022-08-09 2022-08-09 Outpatient MANDY GALVAN [facility] [id number] [facility] 13:48:56 23:59:00 [place] 2022-08-09 2022-08-09 [facility] [id number] 13:48:56 23:59:00 Encounter [facility] 2022-08-09 2022-08-09 Outpatient [facility] [id number] [facility] 13:49:27 13:49:27 2022-08-09 2022-08-09 [facility] [id number] 12:53:52 13:47:00 Encounter [facility] 2022-08-09 2022-08-09 Outpatient CAROL ANN FRANKS [facility] [id number] [facility] 12:53:52 13:47:00 [facility] 2022-08-09 2022-08-09 [facility] [id number] 12:53:52 13:47:00 Encounter [facility] 2022-08-09 2022-08-09 [facility] [id number] 12:10:11 12:52:00 Encounter [facility] 2022-08-09 2022-08-09 Outpatient MANDY ROSENBERG [facility] SLE [id number] [facility] 12:10:11 12:52:00 [facility] 2022-08-09 2022-08-09 [facility] [id number] 12:10:11 12:52:00 Encounter [facility] 2022-08-09 2022-08-09 Outpatient CAROL ANN FRANKS [facility] [id number] [facility] 11:42:17 12:09:00 [facility] 2022-08-09 2022-08-09 [facility] [id number] 11:00:00 12:09:00 Encounter [facility] 2022-08-09 2022-08-09 [facility] [id number] 11:00:00 12:09:00 Encounter [facility] 2022-07-27 2022-07-28 Outpatient WILIAN ALCAZAR [facility] [id number] [facility] 15:00:09 15:00:46 [facility] 2022-07-27 2022-07-28 Office WILIAN ALCAZAR [facility] [id number] [facility] 14:56:26 08:20:17 Visit AMBULATOR 350.1.13.21 College Y 0.2.7.2.686 of [id number] Medi keya 300 e 2022-07-24 2022-07-24 Outpatient [facility] [id number] [facility] 00:00:00 00:00:00 [facility] 2022-07-19 2022-07-20 Office Mandy [facility] [id number] [facility] 14:30:00 10:16:09 Visit Izabela AMBULATOR 350.1.13.21 College Milady Y 0.2.7.2.686 of [id number] Medi keya 810 e 2022-07-19 2022-07-20 Outpatient [facility] [id number] [facility] 12:44:21 10:15:33 [facility] 2022-07-20 2022-07-20 Outside [facility] [id number] 00:00:00 00:00:00 Orders [facility] 2022-07-20 2022-07-20 Outside [facility] [id number] 00:00:00 00:00:00 Orders [facility] 2022-07-20 2022-07-20 Outside [facility] [id number] 00:00:00 00:00:00 Orders [facility] 2022-07-20 2022-07-20 Outside [facility] [id number] 00:00:00 00:00:00 Orders [facility] 2022-07-13 2022-07-13 [facility] MANDY Galvan [facility] [id number] 08:42:00 16:10:00 Encounter Izabela Hunt [facility] 2022-07-13 2022-07-13 Outpatient MANDY GALVAN [facility] Surgery [id number] [facility] 08:42:00 16:10:00 [place] 2022-07-13 2022-07-13 [facility] [id number] 08:42:00 16:10:00 Encounter [facility] 2022-07-13 2022-07-13 Anesthesia Rohan Lara [facility] [id number] 12:43:00 14:37:00 Event [facility] 2022-07-13 2022-07-13 Anesthesia Rohan Lara [facility] [id number] 12:43:00 14:37:00 Event [facility] 2022-07-13 2022-07-13 [facility] [id number] 11:00:00 12:10:00 [facility] 2022-07-13 2022-07-13 [facility] [id number] 11:00:00 12:10:00 [facility] 2022-07-10 2022-07-10 [facility] [id number] 12:26:04 23:59:00 Encounter [facility] 2022-07-10 2022-07-10 [facility] [id number] 12:26:04 23:59:00 Encounter [facility] 2022-07-10 2022-07-10 Outpatient YOLANDE OLSON [facility] [id number] [facility] 12:26:03 23:59:00 [place] 2022-07-10 2022-07-10 Outpatient MANDY SLEDerick [facility] [id number] [facility] 12:26:55 12:26:55 2022-07-10 2022-07-10 Outpatient YOLANDE OLSON SLE [id number] [facility] 12:24:30 12:25:00 IZABELA 2022-07-10 2022-07-10 [facility] [id number] 12:00:00 12:25:00 Encounter [facility] 2022-07-10 2022-07-10 [facility] [id number] 12:00:00 12:25:00 Encounter [facility] 2022-07-10 2022-07-10 Orders [facility] [id number] 00:00:00 00:00:00 Only [facility] 2022-07-10 2022-07-10 Orders [facility] [id number] 00:00:00 00:00:00 Only [facility] 2022-07-05 2022-07-05 Outpatient YOLANDE OLSON [facility] [id number] [facility] 00:00:00 00:00:00 [place] 2022-07-05 2022-07-05 Travel [facility] [id number] [facility] 00:00:00 00:00:00 [facility] 2022-07-05 2022-07-05 Travel [facility] [id number] [facility] 00:00:00 00:00:00 [facility] 2022-07-04 2022-07-04 [facility] [id number] 11:00:00 11:00:00 Encounter [facility] 2022-07-04 2022-07-04 [facility] [id number] 11:00:00 11:00:00 Encounter [facility] 2022-07-04 2022-07-04 Outpatient YOLANDE OLSON [facility] [id number] [facility] 00:00:00 00:00:00 IZABELA 2022-06-28 2022-06-28 Office CARLITOS GALVAN [id number] [id number] [facility] 10:01:58 14:48:56 Visit IZABELA AMBULATOR 350.1.13.21 College Y 0.2.7.2.686 of [id number] [facility] 810 e Results Test Description Test Time Test Comments Results Result Comments Source PT/APTT 2022-08-25 11:50:41 Test Item Value Reference Range Interpretation Comme nts PROTIME (BEAKER) (test code = 759) 13.3 seconds 11.9-14.2 INR (BEAKER) (test code = 370) 1.03 <=5.90 PARTIAL THROMBOPLASTIN TIME (BEAKER) (test code = 760) 34.3 seconds 22.5-36.0 RECOMMENDED COUMADIN/WARFARIN INR THERAPY RANGESSTANDARD DOSE: 2.0 - 3.0 Includes: PROPHYLAXIS for venous thrombosis, systemic embolization; TREATMENT for venous thrombosis and/or pulmonary embolus.HIGH RISK: Target INR is 2.5-3.5 for patients with mechanical heart valves.RAD, CHEST, 1 VIEW, NON [id number] 08:15:00Reason for exam:->post-opShould this be performed at the bedside?->[facility] : 1955 Sex: MFINAL REPORT CLINICAL HISTORY: post-op TECHNIQUE: 1 view of the chest. COMPARISON: 08/24/2022 IMPRESSION: Diffuse right asymmetric pleural-parenchymal opacities are grossly unchanged. The right-sided hydropneumothorax seen on chest CT is not readily evident by plain film, possibly due to layering pleural fluid. The cardiomediastinal silhouette is magnified by technique. Signed: Gonzalez Leggettepbryce Verified Date/Time: 08/25/2022 08:15:25 CBC W/PLT COUNT & AUTO [id number] 05:23:48 Test Item Value Reference Range Interpretation Comments WHITE BLOOD CELL COUNT (OSCARAKER) 13.2 K/ L 3.5-10.5 H (test code = 775) RED BLOOD CELL COUNT (BEAKER) 3.70 M/ L 4.63-6.08 L (test code = 761) HEMOGLOBIN (BEAKER) (test code = 10.6 GM/DL 13.7-17.5 L 410) HEMATOCRIT (BEAKER) (test code = 33.5 % 40.1-51.0 L 411) MEAN CORPUSCULAR VOLUME (BEAKER) 91 fL 79-92 (test code = 753) MEAN CORPUSCULAR HEMOGLOBIN 28.6 pg 25.7-32.2 (BEAKER) (test code = 751) MEAN CORPUSCULAR HEMOGLOBIN CONC 31.6 GM/DL 32.3-36.5 L (BEAKER) (test code = 752) RED CELL DISTRIBUTION WIDTH 14.0 % 11.6-14.4 (BEAKER) (test code = 412) PLATELET COUNT (BEAKER) (test 548 K/CU MM 150-450 H code = 756) MEAN PLATELET VOLUME (BEAKER) 9.4 fL 9.4-12.4 (test code = 754) NUCLEATED RED BLOOD CELLS 0 /100 WBC 0-0 (BEAKER) (test code = 413) NEUTROPHILS RELATIVE PERCENT 82 % (BEAKER) (test code = 429) LYMPHOCYTES RELATIVE PERCENT 6 % (BEAKER) (test code = 430) MONOCYTES RELATIVE PERCENT 10 % (BEAKER) (test code = 431) EOSINOPHILS RELATIVE PERCENT 1 % (BEAKER) (test code = 432) BASOPHILS RELATIVE PERCENT 0 % (BEAKER) (test code = 437) NEUTROPHILS ABSOLUTE COUNT 10.78 K/ L 1.78-5.38 H (BEAKER) (test code = 670) LYMPHOCYTES ABSOLUTE COUNT 0.82 K/ L 1.32-3.57 L (BEAKER) (test code = 414) MONOCYTES ABSOLUTE COUNT (BEAKER) 1.28 K/ L 0.30-0.82 H (test code = 415) EOSINOPHILS ABSOLUTE COUNT 0.08 K/ L 0.04-0.54 (BEAKER) (test code = 416) BASOPHILS ABSOLUTE COUNT (BEAKER) 0.05 K/ L 0.01-0.08 (test code = 417) IMMATURE GRANULOCYTES-RELATIVE 1.50 % 0.00-1.00 H PERCENT (BEAKER) (test code = 2801) [id number] 05:18:08 Test Item Value Reference Range Interpretation Comments MAGNESIUM (BEAKER) (test code = 2.2 mg/dL 1.6-2.6 627) Steelworker ID - MARIOBASIC METABOLIC [id number] 05:18:07 Test Item Value Reference Range Interpretation Comments SODIUM (BEAKER) 133 meq/L 136-145 L (test code = 381) POTASSIUM 3.9 meq/L 3.5-5.1 (BEAKER) (test code = 379) CHLORIDE (BEAKER) 92 meq/L 98-107 L (test code = 382) CO2 (BEAKER) 25 meq/L 22-29 (test code = 355) BLOOD UREA 11 mg/dL 7-21 NITROGEN (BEAKER) (test code = 354) CREATININE 0.82 mg/dL 0.57-1.25 (BEAKER) (test code = 358) GLUCOSE RANDOM 100 mg/dL 70-105 (BEAKER) (test code = 652) CALCIUM (BEAKER) 9.2 mg/dL 8.4-10.2 (test code = 697) EGFR (BEAKER) 96 Interpretatio n of eGFR (test code = mL/min/1.73 values Stage De scription 1092) sq m Result G1 Leela l or high >=90 G2 Mildly decreased 60-89 G3a Mildl y to moderately 45-5 9 G3b Moderately to s everely 30-44 G4 Severl y decreased 15-29 G5 Kidney failure <15Reported eGF R is based on the CKD-EPI 2020 equation that d oes not use a race coefficientEsti mated GFR is not as accur ate as Creatinine Shagufta goldsmith in predicting glom erular filtration rate . Estimated GFR is not appl icable for dialysis patien ts Steelworker ID - MARIOCT, CHEST, WITHOUT [id number] 11:38:00Unlisted Reason for Exam - Click Yes and Enter Reason Below->No [facility] : 1955 Sex: MFINAL REPORT CT, CHEST, WITHOUT CONTRAST INDICATION: Unlisted Reason for Exam COMPARISON: CT chest 08/14/2022 TECHNIQUE: CT, CHEST, WITHOUT CONTRAST. This exam was performed according to our departmental dose optimization program which includes automated exposure control, adjustment of themA and/or kV according to patient size and/or use of iterative reconstruction technique. FINDINGS: Lack of intravenous contrast compromises evaluation of perfusion and for isodense lesions. Lines/tubes: NoneLungs: Postoperative changes of right upper lobectomy are seen. Interval development of moderate hydropneumothorax with numerous foci of gas both in the upper lobe pleural space as well as the lower lobe. Subpleural reticulations bilaterally, greatest in the left upper lobe, and subpleural cysticchanges/honeycombing in the right lower lobe. A few scattered groundglass nodules are again seen measuring up to 8 mm. Central airways: Patent.Lymph nodes: Suboptimal evaluation of the hilar lymph nodes without IV contrast. Otherwise unremarkableCardiovascular: UnremarkableThyroid gland: Visualized portion unremarkableIncluded upper abdomen: Partially seen gallbladder appears distended. Otherwise theupper abdomen appears unremarkable..Chest wall: Unremarkable.Bones: Multilevel degenerative changes of the thoracic spine.. IMPRESSION: Lack of intravenous contrast compromises evaluation of perfusion and for isodense lesions. 1.Postoperative changes of right upper lobectomy are seen. Interval development of moderate hydropneumothorax. Infection/empyema cannot be excluded.2.Unchanged subpleural reticulations, cystic change and honeycombing, left greater than right, likely reflecting interstitial lung disease including UIP.3.Scattered groundglass nodules in the lungs measuring up to 8 mm. Attention on follow-up imaging. Signed: David Oliveira MDRepmissouri rehabilitation center Verified Date/Time: 08/24/2022 11:38:27 Electron ically signed by: DAVID OLIVEIRA MD on 08/24/2022 11:38 AMRAD, CHEST, 1 VIEW, NON [id number] 07:05:00Reason for exam:->post-opShould this be performed at the bedside?->Yes [facility] 1955 Sex: MFINAL REPORT CLINICAL HISTORY: post-op TECHNIQUE: 1 view of the chest. COMPARISON: 08/23/2022 IMPRESSION: Right asymmetric pleural-parenchymal opacities are grossly unchanged. Widening of the cardiac mediastinal silhouette is unchanged Signed: Chika Leggett MDReport Verified Date/Time: 08/24/2022 07:05:41 (CELLAVISION MANUAL DIFF)2022-08-24 06:50:23 Test Item Value Reference Range Interpretation Comments NEUTROPHILS - REL 72 % (CELLAVISION)(BEAKER) (test code = 2816) LYMPHOCYTES - REL 10 % (CELLAVISION)(BEAKER) (test code = 2817) MONOCYTES - REL 15 % (CELLAVISION)(BEAKER) (test code = 2818) MYELOCYTES - REL 1 % 0-0 H (CELLAVISION)(BEAKER) (test code = 2822) BANDS - REL (CELLAVISION)(BEAKER) 1 % 0-10 (test code = 2826) ATYPICAL LYMPHOCYTES - REL 1 % 0-0 H (CELLAVISION)(BEAKER) (test code = 2829) NEUTROPHILS - ABS 7.92 K/ul 1.78-5.38 H (CELLAVISION)(BEAKER) (test code = 2830) LYMPHOCYTES - ABS 1.10 K/ul 1.32-3.57 L (CELLAVISION)(BEAKER) (test code = 2831) MONOCYTES - ABS 1.65 K/uL 0.30-0.82 H (CELLAVISION)(BEAKER) (test code = 2832) MYELOCYTES-ABS 0.11 K/uL 0.00-0.00 H (CELLAVISION)(BEAKER) (test code = 2837) BANDS - ABS (CELLAVISION)(BEAKER) 0.11 K/uL 0.00-0.80 (test code = 2840) ATYPICAL LYMPHOCYTES - ABS 0.11 K/uL 0.00-0.00 H (CELLAVISION)(BEAKER) (test code = 2858) TOTAL COUNTED (BEAKER) (test code = 100 1351) WBC MORPHOLOGY (BEAKER) (test code Normal = 487) CLUMPED PLATELETS (BEAKER) (test Present code = 436) GIANT PLATELETS (BEAKER) (test code Present = 313) POLYCHROMATOPHILLIC RBCS(BEAKER) 3+ many (test code = 478) ARTIFACT (CELLAVISION)(BEAKER) Present (test code = 3432) PLATELET CONCENTRATION Increased (CELLAVISION)(BEAKER) (test code = 3438) Steelworker ID - joseph Solitario comments: Slide comments:CBC W/PLT COUNT & AUTO [id number] 06:50:22 Test Item Value Reference Range Interpretation Comments WHITE BLOOD CELL COUNT (BEAKER) 11.0 K/ L 3.5-10.5 H (test code = 775) RED BLOOD CELL COUNT (BEAKER) 3.59 M/ L 4.63-6.08 L (test code = 761) HEMOGLOBIN (BEAKER) (test code = 10.3 GM/DL 13.7-17.5 L 410) HEMATOCRIT (BEAKER) (test code = 32.4 % 40.1-51.0 L 411) MEAN CORPUSCULAR VOLUME (BEAKER) 90 fL 79-92 (test code = 753) MEAN CORPUSCULAR HEMOGLOBIN 28.7 pg 25.7-32.2 (BEAKER) (test code = 751) MEAN CORPUSCULAR HEMOGLOBIN CONC 31.8 GM/DL 32.3-36.5 L (BEAKER) (test code = 752) RED CELL DISTRIBUTION WIDTH 13.8 % 11.6-14.4 (BEAKER) (test code = 412) PLATELET COUNT (BEAKER) (test 464 K/CU MM 150-450 H code = 756) MEAN PLATELET VOLUME (BEAKER) 8.9 fL 9.4-12.4 L (test code = 754) NUCLEATED RED BLOOD CELLS 0 /100 WBC 0-0 (BEAKER) (test code = 413) BASIC METABOLIC [id number] 04:28:34 Test Item Value Reference Range Interpretation Comments SODIUM (BEAKER) 134 meq/L 136-145 L (test code = 381) POTASSIUM 4.0 meq/L 3.5-5.1 (BEAKER) (test code = 379) CHLORIDE (BEAKER) 92 meq/L 98-107 L (test code = 382) CO2 (BEAKER) 34 meq/L 22-29 H (test code = 355) BLOOD UREA 13 mg/dL 7-21 NITROGEN (BEAKER) (test code = 354) CREATININE 0.78 mg/dL 0.57-1.25 (BEAKER) (test code = 358) GLUCOSE RANDOM 123 mg/dL 70-105 H (BEAKER) (test code = 652) CALCIUM (BEAKER) 9.2 mg/dL 8.4-10.2 (test code = 697) EGFR (BEAKER) 97 Interpretatio n of eGFR (test code = mL/min/1.73 values Stage De scription 1092) sq m Result G1 Leela l or high >=90 G2 Mildly decreased 60-89 G3a Mildl y to moderately 45-5 9 G3b Moderately to s everely 30-44 G4 Severl y decreased 15-29 G5 Kidney failure <15Reported eGF R is based on the CKD-EPI 202 equation that d oes not use a race coefficientEsti mated GFR is not as accur ate as Creatinine Shagufta goldsmith in predicting glom erular filtration rate . Estimated GFR is not appl icable for dialysis patien ts Steelworker ID - DREW [id number] 04:28:34 Test Item Value Reference Range Interpretation Comments MAGNESIUM (BEAKER) (test code = 2.2 mg/dL 1.6-2.6 627) Steelworker ID - DREW GTissue [id number] 16:43:29 Test Item Value Reference Range Interpretation Comments Case Report (test code Surgical Pathology = 104) Report Case: [id number] Authorizing Provider: Izabela Galvan Jr., Collected: 08/15/2022 09:30 AM Ordering Location: [facility] Received: 08/15/2022 09:37 AM PERIOPERATIVE SERVICES Pathologist: Jose Luis Mendieta MD Specimens: A) - Diaphragm, DIAPHRAGM BIOPSY B) - Lymph Node, station 10R lymph node C) - Lymph Node, lymph node station 7 D) - Lymph Node, station 7 lymph node #2 E) - Lymph Node, station 7 lymph node #3 F) - Lymph Node, station 11R lymph node #1 G) - Lymph Node, station 11R lymph node #2 H) - Lymph Node, station 11R lymph node #3 I) - Lymph Node, station 11R lymph node #4 J) - Lung, Right Upper Lobe, right upper lobe bronchial margin mebrane K) - Lung, Right Upper Lobe, right upper lobe bronchial margin cartillage L) - Lung, Right Upper Lobe, right upper lobe M) - Lung, Right Upper Lobe, right upper lobe bronchial margin mebrane lateral N) - Lung, Right Upper Lobe, right upper lobe bronchial margin mebrane medial O) - Lung, Right Upper Lobe, right upper lobe bronchial margin mebrane final P) - Lymph Node, station 4R lymph node #1 Q) - Lymph Node, station 4R lymph node #2 ADDENDUM (test code = [id number] 3381) Ach6mcy3SkeZVzwQMoDSws tKOgscMfcf72aQZ5zD87FE 4hRTWmNjZ0FKXbvdU2Egn7 QHMhUCTbuVCsX022q3mlx3 vnzyZfhNE4cUeeJOFhimtb GzN2CJawHLOcdraqXGk3LH dpWRJqiHK9VUIkzLKzF6Ls ZQPdKA4ebaz6RXC1KQmuBF AlZkH8EDVtxQPhPBHfwAmt MAcuz787IGB8KaHkHCMwjd IdqIccqV5rErHiNDYDkXfu IGFkZGVuZHVtIGlzIGJlaW 7lDOycg1UyEOG7rhDwFBEp riEhfuXcxPx0hkNdGfLMAE syPCIfgJ71bg1nlNTzgwLp QDPdo9GzKILfQZMqTlYcR3 Wsi85dF4ZuGYVev3JrsM6k aWVzLlxwYXJccGFyIFJFU1 VMVDogUERMLTEgKDIyQzMg B4tycwRyFuMliICjZEVapa KKDHhtACOvVjIJEqZymZ0z DJb0LV6UXBHTEUQEDFQXJQ YjVSGwxwICDYVfF3BSEmX9 IDBccGFyXHBhciBQbGVhc2 Oab3LiHEQ4gHWxqSCaWILy BD0gOHGbwcWnp5E9AMBokb WwxGE4qNLrRKNsbNPttSOx cGFyXHBhcmRccGFyfQ== DIAGNOSIS (test code = f7ngjRXdIVEvk1hoTQChgK 3220) FuZzEwMzNcZnRuYmpcdWMx IHtccnRmMVxlcGljOTYwMl qpciFhQWJrnOKrU3Yhgljk ABewHN0nRK5zfQdyaMHweP VbTFCjUyZoy1arc727bCRh s2bbGNNOtivzgXl7pUejC1 9eg8O2MqytS6skZLZzAAxu qyGvwmA1BBQhhYJdLMv3IA BhcGVydzEyMjQwXHBhcGVy tHW5YWLtES2gdsanETccEG gyVYWrqnZ7PAFgmTXfU2Pp QCCcOL7glsnbUKQ4FZtuUC IsMAI9ApVrFSSey0Xrukn5 MjBccGFyZFxwbGFpblxmcz DmGLWuMQCLNJHHRRLBW25h DECUZ7RYYBIYP1NhZaPQWf BAVCIUX6AGA285UENkxcEy IFUcKyXYUELFYtWlJz9OIC 5UJEhIHvHDH0zjhBFtYBVv OWXHN5SCUxnHFeBOQrUuJ4 hAM23GLxFDRcFECI5DSGWV U96ziWHrFJDzbhEWUkFkFD kXSUhtTm2GMHwuE2UTBFuM VzNoDNNXWMLXDGUBQ7HDY5 46XHBhciAgLSAgTUVUQVNU DLHPRwXXESTDRU6TPaTLTA WJZC1XEZMrON1BA8nKJM6I OIRjF1DnBpZUWA8AEMNHR7 JDRzHqLT8nHUdmHSHdzVLs OMGkAETIOW1TMYLTN0XHVS FHFVIQBH6TOMbjVLNUU2ID NVvMGfVQY2MqEhTNQiMYBS FYK9RMR857VWCsgoNxBVYy J89YKNQTAqvCXdEXWW9IFP RJW1QTTEmmKbMqMFCahlfz YXJkXHBhciBELiAgTFlNUE heEb3YQPfgU8QCMVwWVjD7 MJQlPBDIBELAO6DKM824HH AxibZuSKGwO09NFZBZNltN NfZDUZ3VFHCCJ9VWJEntJg EpXHBhclxwYXJkXHBhciBF GoIxHKtVOHhqSl8AVRxzN3 INNNgLOoS6OAZfSBNBLMJH E8QRQ975SFSxzdAgIJAiE5 3MONJZVwkAObPYQV8WMHAI I8PDUUigMgQgQJFmjyxcDP JkXHBhciBGLiAgTFlNUEgg Av1DUSprR1TEYAzFEiUnZF JXMXWgMLMOHINRE2QDG327 PCWixjKbKFLiS90PYXJQQx sNKjKTYJ3QZRNGB1KEOZkv LzEpXHBhclxwYXJkXHBhci RKXkLnGIbVDNqxKo5KDUwv D0VVYLiQMmYaRSLZEOTkVF LCRUJJE6ZXG512TTVwpwAa ONUnT13VELPFOxdMIiCYGT 9KGNEIT4FICCxkWfQzPVOi clxwYXJkXHBhciBILiAgTF iPUPpkFx2UMQrbG9PUPDlG TiAxMSBSICMzLCBSRVNFQ1 XSN226WKKbriYoSGIxP39F NXZMMlwYTuSHIJ3RQIMKH9 RFICgwLzEpXHBhclxwYXJk XHBhciBJLiAgTFlNUEggTk 8SYUflM6LKUUoZFjRhNIPH KGJ5KLDYLUCRV3SIL968IG GnotGwJCNoQ50ILPHHLxsL WeHIVY9CGAVBF7PKUZowLm EpXHBhclxwYXJkXHBhciBK LiAgTFVORywgUklHSFQgVV YWJVPjZK4GLJryWlWVYuJV SREQER5EHoqCLuGNOJ5BVo WYCQbtVzCAEkBTDISYB4NH L546CWMlcbPjVPLfX3JHTJ 1EYIKsI9BINDUPOARSVP3I MPWkJXHHDhEHOB1BAxsMXv RxBqJITOAHHdQ8LEEUCKMR TUVOUyBNLCBOLCBPKVxwYX KkqYVdOKtvKOPCXY5XXGVM LRnBIYPJXGOAHkSIW6YENF BRJn9JD7rMIHlqKQNQC1xA IENBUlRJTEFHRSwgRlJPWk BZEAPSS4VDX987OWDoboPl BQLtHGEIX7UbZYALM1MQKA GLBySMLW7BAOJRFQPwR7FS Q3YRCCWkldZxULPdYdQABc LHGGREVO5FCeuJFfIKXq0Y CAPqTN9MO4NQNCXNGDHGQm SECYlRL60XIdHUXIXimwry AFFbSA1zUVuFGbgsMJLIF1 hUIFVQUEVSIExPQkUsIExP NhKSHM5HWTraxEViFZXzWC x+LSBcfklOVkFTSVZFIFNR JQZYG3EYJVZKNHktC3TAR2 tYC43QVNYIH2FVLiLISHQD KcVFY16ZQOxfTQuPPlEKHE 1DUODJXAYdhBMnLS1wAVo+ OJGVH1BdJPBFT7USVMSdDF 0nHIwfSa67EEwkVA5uZMUB XHBhclx+OAMqexLRNF8OMV hJOoMDYVBiAuuCE0OYKPwr UExFVVJBXHBhciAgLSAgQU RIRVJFTlQgUEFSSUVUQUwg FXiKRUDMJLVYKgjLBd8TUg VEXHBhclx+LSBcfkxZTVBI V5EVZ8AWOEKLDXmEYvLXZO 2IGIfJVNkDJU0OPDPSLFAn bORmDN1oCQd+QlJPTkNISU FMLCBWQVNDVUxBUiBBTkQg XHGZHE7JBOeIFHsnNpHBMY GUXC4LPG9QCmmQQjKnJE3V K0ZQCIMSUXWIVqUCLLdVU8 2LOaJIQUYryln3EJCcICOX Vq4LS4mBBOqmBGKJK1zKZt QkDoPpS86jLDoJUUpuQDYg pRLpFB8wImELI5BGYGInDE TGR7fVSxAdRoIpV35rNKmP YJvaPXWxhTIuUJ2oGMATCN 4UFLyASFkgSNNKM1rHBbOf AnQeE15rVBrNARhzJPQkT3 KyGDEdNXMSRNGNB3SKYEeK PRWCBMIXO9OZQFSFTeMSHq 9NQSBJTlZPTFZJTkcgMSBP UpU4JDlMORRCJS5MWFMXZS mxZoZxVJIvgvofJaDlQS5u JSIFPB1GM7sDNSXuHGFVLr ELOOYULpQFST1OGRSAXPRJ GDEQHhhSHc1BP7nDM2bKTi KLDELASDxUU7uYOAJPTKJe dTIoVPHmDBWlKk1FNRihYB nPFo6RC09PZMPiON5OOCmU I36AOT9MNQZpdvk+LSBcfl KGCSrEXR2IRIGyB6ZZQ8vD GgzkxXH3NzROwMVqVLpBMd D2jVrmPWWgQTjyMoQvTQvs MFHiqCIyMPrbZGLrFG4oPZ nXYmjsJKAMY2vAEHRYWKPO CFiDPkGqFVHVC48RUMtQIJ ZNPYXGHZ0mHKDKQeZGAyRi GFjEQQEVGVicGJAMH3DCFL lPTjpccGFyICAtICBORUdB SBjCSLSTF4DdUPFLHNuXXG 1YNVczKUByoDZlBN5mSMHT IV9BDCSYVRxDOWPHZVXOYl PBI2CVHSYFPe8RD9vWBAte FVJAI1hNBI7MNRLVYS5UPW URQQMONJicRSZDC7WWZYdT TjpccGFyICAtICBORUdBVE bMUZDJN0RiFLDXGXnTZU8C WVxwYXJccGFyXHBhcmQgTy 0yBGdTRovkEZHFM5sGOPCA ZUFPAHnMNqSvVUMRJ45UNY gQOKCEXXRYTG6iWDAYAqOC TkUsIEZJTkFMLCBSRVNFQ1 SDC844VYImtmNnVJDgSsAJ ABEDOkBqBo2EBT0SJMxJMk PDL3ehgLPePQEpenitPCKj RTTaSIVIVQ8GVIUVY6TAZZ IBUNBGGX7VHSPJZYHhQTOH KHKPI8DRK526JRZlqkJpNB WJKIQZWEMXIfpBRcEMJH3G XOLNV7WPRgUrUY57HSkxOI FyzXVkUTAaITkHDJPPAA6W RPSrIPDSQWCSP92oIIFuUj FqVHTRF5BLNWmNVvcuyWPh ICAtICBPTkUgQkVOSUdOIE yJKFMKSF2PDDEkAGDfBUci dHXunLenuvSnNYxzr2DxWF diBQTyXQ8kkDudEEAcFA7y UCGiG1ihsD3ttot7KxRwDN SmYcA6HTQpvyF8Fiu2FMUd AEiaf7vsr7JqXIKvVCh2sJ imVkUvMEFua8icymPrIgSr JENiVZBgTIXpoJYkZ677x5 eyq8dssdSlgHR8EWSbFJG0 DMvlkkFsotS3FEkywJXwYy R5RIiwqkDrJOtmbtItbwZf Ltr3VITcE187NNZ0hHhxh3 bbWJO9UBQfBCEeXgKvDp1g xYXaO012TNXsKCFVPHQqiV n9NAToiiTkceRgkPLCe426 C356k1njVKZqvzHnvLwLzc idl7sgR303HLWnvTPefgTw HfPwOEYjsSDxiKZ2BTWkCU 3gotavKLxzYKyuBTVqamM0 NGTynPDiN4TjODDsPT3ixq qmQIV9ARsgGYXuJBQ4NgLe SBMuw0Hgtwi9AoEmgt6mec 07QIF3m7KdhMduMVE0FYK4 HuEnMp4pnNFwOEAnZA8oJl LbsEVqCHJyjz64qLcwDLyq ZTC4OHIwajVoi4Geu8svZl KaalXeW1pdG4YsLKTzIZWb AAMcLvJhxeIqs0Uuo1FjlE JjwCe1c9xuFHHcNSDstMot v9xwDKL9GCKhzJLxH4unmN 6jFHVoCX3orcfho5juIMsv GVehWKEftUJ1fjS9RWBmbB BxX9EkzE1hMCQmYLyaZOQv nhr8YxLiVi3niVCpxHzrCP xzYmtwYWdlXHBnbmNvbnRc cGduZGVjXHBsYWluXHBsYW luXGYwXGZzMjRccWxcbGFu ZzEwMzNcaGljaFxmMVxkYm XvZMDuZAjpG0sxOlGcPzUd Wsv6TCIzrZBmAGQcOra9LJ GzoSFrYQGRqTyduB9uKHVr mCfnuU8mfWB9YCTtmgIjbT EPfJ2yGQIEsW7eVjC9TJRs Uhb0PCK3UnAhdHRunY3= COMMENT (test code = [id number] 3359) Hiv0unm3FvgQBtfTKdSJuc iLCtftCkyb76cBD0jZ98FJ 9vUWFjMaK3RTMcgzE6Oso7 RPLkNJUspEKoL031w5aiq7 apglJgpAL1fDrlUJYqufhi ToX3GGrpITZshdexRSp3WE kyMJPxcIB4VIKvjJUjL2Sc XTSfGC0bzko7MBP0AGxtEO DoCqE6DLQpwHOaPAUwsBwa QAxmq086JZY0UgLrZHNqyj AncJnxzH0oLfYfUPIPxB1q DXEeHLJwn5W2SAd7RNOawl RNqO7nebzsWYSvKXPsguBZ w4FfQIs2UQumYUkqCEQnoQ WnOFX1pK9pMBnaaWbiZhVd n4BnwNU3pzGDMW3oUK4xuE phloUge4VcSafqdAZnd0Mm AADej7HjjqriSXShb9OzjP Mfb9vnfIAaJDLfKLBkokQl ZRIcbcNqimQqFJDqniA9bK 5ccGFyfQ== SYNOPTIC REPORT (test LUNGLUNG: RESECTION - code = 5765) All [id number] Edition - Protocol posted: 03/01/2022 SPECIMEN Procedure: Lobectomy Specimen Laterality: Right TUMOR Tumor Focality: Single focus Tumor Site: Upper lobe of lung Tumor Size: Total Tumor Size (size of entire tumor): Greatest Dimension (Centimeters): 8.2 cm Additional Dimension (Centimeters): 6.9 cm Additional Dimension (Centimeters): 5 cm Histologic Type: Invasive squamous cell carcinoma, keratinizing Histologic Grade: G3, poorly differentiated Spread Through Air Spaces (DAKOTA): Not identified Visceral Pleura Invasion: Present Direct Invasion of Adjacent Structures: Not applicable (no adjacent structures present) Treatment Effect: No known presurgical therapy Lymphovascular Invasion: Present MARGINS Margin Status for Invasive Carcinoma: All margins negative for invasive carcinoma Closest Margin(s) to Invasive Carcinoma: Parenchymal Distance from Invasive Carcinoma to Closest Margin: 0.6 cm Margin Status for Non-Invasive Tumor: Not applicable REGIONAL LYMPH NODES Lymph Node(s) from Prior Procedures: No known prior lymph node sampling performed Regional Lymph Node Status: : 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 As per the AJCC (Chapter 1, 8th Ed.) it is the managing physician s responsibility to establish the final pathologic stage based upon all pertinent information, including but potentially not limited to this pathology report. pT Category: pT4 pN Category: pN1 CPT Code(s) (test code [id number] = 3357) Pdu5nav9OvuFMacFVpCEtu zSJsqnWnte81sET2pN79NS 7rLNItOhO9MOZpmmX3Slw8 OCFmPQAwzCMsL863y0gzd0 eiuzNgpZR7tCixPCSuzxxn MsF9HWjzFAKztalaAKz4MA gjASIkdFQ7FMLflFExX3Wz LTFaGB8npid0SDB3PQrtDC UwMxF7IXYywXPkDPRtcBfu ONvvk912EGH1NkMrKSUgvi XebPhyzD3hFhFfMEO3EURg TXs6WOXrklK1WHKpA8dpOZ LllwA7FXPmEQwxQQHvYOmg MDVYMTRccGFyfQ== GROSS DESCRIPTION (test r7ovpTFoWPGqbKL7JjNoAW code = [id number]) Rdx7jox2SquDWudHQyKShr nHVehtPckw37cMK1sF40RS 5cXZTnUgP9CCRnjcJ4Cha4 SIAiURHltLJvG778u4tnn1 wfwvMyrZA1UVNaVQGcU7Ht JS2jAIEcqHNfY67rqJUbJJ U3IUNxFOIuxKNqLZChLPT5 ODWtwSZdE7seHCFwJE3egh yxUObbQNobNYDmcRY9GTBa tLYeE9LuIDWvVRubZNFdmx q3LvBxSu6ndJDocAmyIBsq FTYua7wqUQOtjRGsXBH6FJ dlhCRjUAAqJGIzSVo8MIYg DRoftXTyGF4geXlxMijxdU iyc6UidEXvNWqbVVLeZXYe VGtyBWOzV6FWGEXsOAItAx YcZLCnRNb5ORfsR7RMDMHc FTBmESGpKIk6HzL0RXn5IZ YDHn8mSuk5KEkeGKEyHVW7 OTkxIFxcdCAyIFxcZmwgXF fzTRKdqHAzFPhkcqA2ABSv IQscRFGpNxRhGD9wJMqylZ hyYWdtLlxwYXJcZnMyMCBU hHNos2NnS1cxKO0mnYCnba WyEXx8IJIkXjLwm4rfLv9p FYKxo8hvyrIgTPP4pU6yYH FyMBhsn7HwjkkaqPOoJFjm HXB0oABxMKSnHENdUELlCA 50XCdiNHMgbmFtZSwgTVJO IGFuZCAiZGlhcGhyYWdtIi BpcyBhIDIgeCAwLjggeCAw FxNwX65agITcFWx0kJKmRN KuqaF6KLmbfNTcAXBykTVx u4InZiM7tCUjeUMnu6KjxZ u3bBAaZUvhYKLfvC1tgC5q QmJrHCYtt7jujVbuy4TwxI YhEZttELLgoOAwCNinrO4p IsNeu5iuhWj8OOeogqT2LK Xjgk83QIgyFXMnI1TzR8Hn OHqvDLY0LETjQzLeRRVhAK 5NSmHlAQrnKBRoItagSSu7 IKn3KY4EGxYuEJJiYkZpDI L0WgCtVFw6GLknCT8EEYW2 QGA0QQwcJKQ9NKq5HRBoLU QgMiBcXGZsIFxcZiBBcmlh xAAbOS0olRbdudHwQQSiZI a8gJWoXN9nMIFqLPIblyfe czIwXGNmMSBSZWNlaXZlZC SansWfh5MdTXxozsUtKJFo bGVkIHdpdGggdGhlIHBhdG zbsdUkB1K3gwXfCT8iKVTo QMCbC1EzVHVsJ55lLTQnkN 9aLWLjNT6uPIy7ZUZjIAVx JzkzMTAgUiIgYXJlIDIgYW 83cDBgU737rRJmtInvzZrw hd6yUPEbpKHsx8BatE7uKK ZvUCHotMWrlgKuNR99HHGx LiAgVGhlIGxhcmdlciBseW 3vfTSzv0UfNExyFXJcq5Wh wPSzREVoNBK5qIKbb0XeA5 hbPM7fsSNmAZ69cKHrqLij d5JneQd1tPKoEpnrYVWniI VjXKDyB4Rrc66uE05iHXts cGFyIEIxOiAxIGludGFjdC PlwN1ywLPnb7VdJJBstaOS Aa0LWaldSGDenP3pbDTeh4 GfYOMgnMTgX2XvYGnfAVQu V4RuY0IjirNhqWVpLSHjot Hlm8ovNCL7LKXpnFBvcADf GnMhYxmzHNS9t0ttMZUthI JmDMO2SZcweAFuBDWkDTHe YVicWeXHAkOgZlX1MOJgKz X5UdW3FHw3NCWDKvZdNtRc MpGhCBD2OVBoSVd7QEh3XF hWGaH9JJalLXNhNaTkBPR3 RRScHMb7IJUfLReajURwDF QbLBMhAYgsMDylN04yNmMi UHvyMqRbYl3tQYthsYfjGk 1xTJ3ipCZjRTHwFyVwSBoj IHNwZWNpbWVuIGlzIHJlY2 VpdmVkIGZyZXNoIGZvciBm ho81RS4co4WavSdvxaPvmT Yzcy3cbJMfXYtcLjHfINVn c9n3eCA5dEDazPT5qMHsbV scMoXlKC5giDPgSN5IHqKd gfWkAci8IrQjogPfYUNwDV E7JNGhUNL1OBSzEsNlqQCk bpQwkbSkf1QkUiEfsC5ldK Iwu0GaGbNhSVbkIQTyFYVa tZMkHDgjLYOot6UoiQJbZI FuZCBhIHRvdWNoIHByZXAg wLTlvTQlJZ9zKAIxPGSfeQ QwaA2stlEegwUpjaWdulJy tQGciOXylWZ4KTZuyB1oVy XoLuAey1mopLuam0SdhQLm VEnrCZXwyUTeNCyozI4lRm Uxu6iagBf0DCderuY1TNIv cs04UXjiECTvA6NuF9RuGO srRLG1HEOtBvXxHZZbBV9B MdGhJLwfAKShSbouDOb1VH b7WV9GSvXqOJUvUsBnCTek ITWgVAy2NVswOI1XSJX8XQ F4FHSyKjW5SPt8RJEfWDYi MiBcXGZsIFxcZiBBcmlhbC HiUZ7hcWqeqcEcXOIoXUr2 lOZpTO1jIFHqYXNmzltdyf WwTOEpQ7RbvsVbUAOaQVDs QXteSfSuWZBfp4g4hDA0yW XkzFP5iPCldNskFeQwMR5e gWSaLS4lRRhwVCmyfpZab9 SaON31pOBfpaWcfaLoXfd6 IiBpcyBhIDEuOSBjbSBwcm G2vC96n7w1CWgjZ6ljONMi SN94kLQrW715wLLtmTjwrL xmqt4yUOR0sYY3STuwQYGv h2WveNXiBAQhPTLpyaVaiz HbwNNbxYXjbGN1PSPhcX4i RNOnVHUdi4psuFhhl7PndC MlCErwTKHtbRZoDSbpwZ8e RaIlm4hkaLv5WIoemvM2WZ Tlgd18DBrdJWFxZ9LnX5Hb FLsgHUY6KTIxGtQlBRSlOT 5LTqNvPTjtJSQuJwcfMLw2 CPv7YQ7OAvPyYGWqGbCtKW lsDNSeEYq4YZztEO8CHQH6 AJZ4XHWuXSM3EMz6LJByTC QgMiBcXGZsIFxcZiBBcmlh iWAzNI4rrOmjaxVoXMUrSX s5kSRmNS2yOWHwAZLjlgok zvIjJYGzL8TrazFzGYBrVK RrCFxbIwVoRKKwr0g7uFN1 mTRrfTF1dNUhrJcpZpUiSS 9mmCJjWG2gITcpUOejzoNr b9HfRT41zXLlxvRzosIlDc m1EVCnUrWmnjYfWIXuGzP9 YLNcZjD7RDTdOKRubLAair GmckFeq2KaXjGbcR3dkMKd u7OyTNxbvJzoIEFmeARhmT KfyX71rgZlu1ChOXD5QJYr RPYkIKDtxL7lEPE9mASabX RkQACOhFNjfS3iqxTsmkAg YXJlCRtadWIyPMM0gU8pSI IoIS4iUEGgcEnvQOe6MCX9 Hn0dvXYyLJVroqRALF1SER 41UTPyzIBeOWN5FI7rTNOb cvtkQALtIRJmVEQ6OYrdeC 11bHQwXGZzMTZccGFyfXtc BgtahZywn9AukKHuFFsmFP XoXCVfLPtcDNZeR5FZYAGh RVPjIkTzXVUzLOa3BKuyX8 ZTICIgIDMzMDAyNDgzIiA5 OZu4WCBRRx3qObv5GrO8TN d9PFD0EJdhDPrhdKCbJQdf ZmwgXFxmIEFyaWFsIFxcbm X1AUZtGuZrLu2iYLlfwTlg Yx3bOB5llZPfOMXrWaTkAm IqBEe3QKSyDtUxz2wiaFFs RKwzHJH1pGBdSTUuBPZdLZ LlRT05KFkjJUJacdYySMwb bWVkaWNhbCByZWNvcmQgbn VtYmVyIGFuZCAiMTEgUiAj JHMyjWYvECBvVoTsH01aBS 51fAWlE170uNOddVkipSfl sp4jPTDoqCRsvIN0VLQniE 5rzP35paXpwiFIWN75RBSk lPLiFFV5YH0dPYCedgkbHZ VnHYEmYPB1AEqusT76vEZz XGZzMTZccGFyfXtcKlxlcG xgq0VffZLwHOtuSCLwIQPq LGvdMOEbR1ABEEYrBGDsSy TzWDZaLWw8VRzqN5KNONSv HFAwCVHwFXOyTmY1CCw9MW PAKc3xCcy2KaR8XkLcLNH5 OTkxIFxcdCAyIFxcZmwgXF yuLZPzqVLfPJillsG0IWPi YlLgPv2tKOjvuFmfEa4oIF 3lkASiEVWkVpNxBhAsGHf8 GSFhWcXvh8zcrZOkPOkfWS F4tSDiRHDoOMUyLMZpOZ33 XCdiNHMgbmFtZSwgbWVkaW NhbCByZWNvcmQgbnVtYmVy IGFuZCAiMTEgUiAjMiIgaX LbHMIqEyyqY99hQQ19qZWv S106rYZurZbesYhssb4kSS E2wAJ3WRuuINXdh0TqwBFn IGFuZCBlbnRpcmVseSBzdW EddTZ1NSCxlO5zSjDuIjWr e2deqKqoj0MefQXpLVeiON FwaWOvQIcwvG8nIeDzl0oq oJg4JPqdyqK6VFMcim45YJ ueALQeQ2FdL5LeDZvjPHC1 HENkYjEjHRFiVH2JLoXzLD lhNWVcKtduMQd9JGq9OF7R UyAiICAzMzAwMzAwNiIgOT n0YRqgUY3WQMV5ZQZ9ULMa KWC6PWy7GCUeHQXiEzKwXL LaVBfrLrTTgzwvpFItYE4r hRwsfoLgEYhdEXt1jHRzUJ 5vZGUuXHBhclxmczIwIFJl F5LhnxErQPNnCIYkEAqnAy JwUIVpl3z5sCN7pPWmlVO4 uWNjlQweKlYkDS7aqWMjDW 1wPFexBPmtavTto5BcIR84 bWJlciBhbmQgIjExIFIgIz KgSVchJZYsBZ1gMQSrXGKy gPxgGNOstOihXFg7nIVvJM 5vZGUgdGhhdCBpcyBiaXNl J1CbODIlylAbTR69hCMulP ofi5MnsFt0sXWiVMmeIGkc KuonJLGuN8NlC5LkzlIykX NvRZPctuKkm3vmPEG8JFSx dNCvgZXvLcNzCvrkGPJ0g4 voLONxrFJnFDJ3UQzusTWl NTEwMDIgXFxkYiBPVlIgIi W9PGKdJtH9SnR5URd6ERVD VlMgIiAgMzMwMDMwMDciID c2FDd1SDaMRrO1POjoKml9 RntpAYO0THAwNPc8SLErDB xmbCBcXGYgQXJpYWwgXFxu Y91wUqJyKOWAWgXZuW2qsJ FBm0IfVlzhBMLwXuTjPLZO ZWNlaXZlZCBmcmVzaCBsYW JlbGVkIHdpdGggdGhlIHBh sEhibfApM9M3bdHvCS2nFN WnLEIkI7VuJMVvI86oFVXc iE5jTQPuIK7iJJFvSJOFRL G1QhKjxtWvMTPuBUDfmSBy rlVvomJna9ZzRyHyyO2uaI Zwj3DbIAMiOLexHX02FHHn bZ06ltXqLULjKJPvrwUepP OomKG5MOBidR6uyC23rjFt rzHTGN81XJNakBOvRAK0GX 8qCKVrcboaFUPzHRFlXEO9 IAeywB61xMTrITHpWHObfJ BfvDfkOtjvkCrtt6VfkSHd XGlkIDUxMDAyIFxcZGIgT1 ZSICIgODAxMzMyOCIgOTk5 DKluT1AXVUCxTGHoFRLjIH T8NdX8MOb9NNYXHz9gYxg2 CpN9QMP9NDX2PTnxJCqzkC AyIFxcZmwgXFxmIEFyaWFs CJkwavT3EHFcSmBeYl1wEF VuZywgUmlnaHQgVXBwZXIg IU8hNZ1zmDXzBZNkZqOlS6 EnHRTpUZEvnUDqcV2qshCh cyByZWNlaXZlZCBmcmVzaC Avd9KcFrMgrtHlKXGsX0Zg b09wNObzZ03jh6zsCAVnSH JlbGVkIHdpdGggdGhlIHBh hPfvpcKeC4K3ouPgCK0lEB AMOy9hPC1zAGSnyJ7iLZBo yLaixWX0zVZmhlWsb6ZcEe GpxuDfBEKfMsG5XZGrdK6s eqBeNgP3JIYvSgJqtEWclI 8fOCTmUiEfdEmnw0SwDDKt XBccSB63LCZ8Ks4qaRJyCC BfjoL9u5CaKUgoXMCHTHyq OrzhDAXwP2QiF0MsijJsjA JzZQJddySdr6zcPFJ7WJJj kLUkeSEtEcUrLghzEMF8p8 suVOWawZGfIBC5VPjfgCBh NTEwMDIgXFxkYiBPVlIgIi I5QPBtVfR8QgH2BBp9IBCK VlMgIiAgMzMwMDQwMDciID r9BVk2LZoWNtM1KVjcWqI7 WKTdPNZ9UFWzLSo6QKCaSK xmbCBcXGYgQXJpYWwgXFxu Q19oMnQqJBspHdMxVg5gIT VuZywgUmlnaHQgVXBwZXIg CV8eFS9wzSArYOGgCvQvK5 ImAIFeKERnkKVlbU7tmvIl cyByZWNlaXZlZCBmcmVzaC Njf7RzDzTtxfKlBGYwI9Im a41vTOduL30yl4drMOZeZZ JlbGVkIHdpdGggdGhlIHBh wTtrxaPnG5L4taJyUM0vED VNLf9pFG5kBQMkvN1eQGDc nSfkoQR1eCUgntWqn9FmSx GvllOoFMOiDyO1KFWsUtF0 HCCaEkMxkYGrgY6tVPQvCj UxeNfuv8TtHQUtEZdnKW72 UDT5Jc7qkDIkAMAcwpD8c7 XsAKriXXyvNbbfFVZgZ7Ai N9TtdpHczJNsEDIevlXxg7 zxHAN7GIRrhSBgnKKhGbUk GxiuTFQ5p3yiXCDtdTWaYW M5GEwacTRiUOUlPNVfVCms NjWGTrCnBtA1FRBpAcH8Vx E9TIv6KRGCQtAlUwOnKxLn RRAdTiNiMQm4GNj7CPnAIl T6MHqdRKU4QDKoJGU6GGWw QVx5RAEsUKywqVCfKCOwKV SuNGzqMYjkJ63uMdYiVIqs UvDmQJ9nUAOvSzziTtjuhO OdIRXnHJFoBQ1dSK4ivTZo NALfXzMgC7WyWOEuD2Pblg VkIGZyZXNoIGxhYmVsZWQg z4m3eGH7vNYpyCL2aWYsiC mmCR0jbGZsXZ5IKcKlvpXu USt8efkwKGVLUTShqVWzPT L3RTFqFokxPGP7BXZrNubv pUX3CgCiR16tvTMlSrGct2 QrF0UdzHritGMbmjDoR9Fj WDUarDA5lYLar1Wfu73aGG Y3XPNcb12mnKFeGvp+XH5B tKSiLOTxS4SvlfFtFThoFN WuZUDsTL4qVJLlxqQxfI1w wlQrgsEkVYYyFHX3EIXdHA N9GZZqTvLhnTOzzD2dQHdf aXRlIGZpYnJvbWVtYnJhbm 71mdN3mQSwhTGio6o2yEHj APOxKAihIUYkn4LscAGeVf DlaHCeC1gbRSRwXNusd4Ti NSKvs5T9NT8niLFpMKRkft BUaGUgcGxldXJhbCBzdXJm YWNlIGhhcyBhIHNtYWxsIG Nuu5SsxZIqEyXoNHram4Xd CTLzw1M7YJIutzE0dQZmHT 11MKSnf4Bgn1DiHnEnUYIb UbM0rREmJWUzwU9fMVzxzW hlppH8bFNrqRfoTNIwQKVa v9HtmUqeMJLoxPOvkU4jXL BsZXVyYSBpcyBhbiBhcmVh CX6iCKY1G3vogumvYv7uSL XvKEUzZF6ggB2xobgyfKlz gPEdXEcdFTZiUBknx69tc7 BwDJZiGPLvXNrgoUB2zUOm ELWbKAKhMP3rRQRzYkWqh1 paOHBlIZIpGDsgx2pmnrKw ICBUaGUgbHVuZyBpcyBzZX CsZCfxfIYmFFI8qH3sKDZo rR2acaR6TRDrCXHqPIyvSz X2HFAqPDB0IVZiJHBizSQs xMzaDVYgyY3hZRrtP5XuxJ 22mJg1NYE2bpH0NXouz5xn WSGawa5hQQTyT0VcePukjf Rkwp28mCVpjWHudrUmOOFr lB5kVXWdLXIfpRK5bzQsDQ W3M7tpczktWjTtylK3lKKe AR88NWNrc2Dre1IcQhRoJC 5cfiBUaGUgbWFzcyBpcyAx WpTzPqShzRW7gQZvIsYldp EghWUqSM6xivitffjgDH14 TDKwXMUtx79qpPcvHVU4kH 1vbmFyeSBhcnRlcnkgbWFy R2haXMGpugIsGCR2jCYrfM hlIHBsZXVyYSBhbmQgdGhl QUF2iVBuhVMoPYUqdYMvl3 CcdPgno9IlCkLrFQhyXU7t z1NySV2lelAewlJudKFvUP BaVDHabi1oQ8p9tt0cnLSq FZSvluQHziW9xKJyfM2sZO Pdd0NbSDSoSTK6DU3lXHOl JNUhrBTnuK3oeoEtgdDrZR ZuBeW9PPKcXOJ2GXToKIHx bSBmaXJtIGdyYXktcmVkLC XjXDW8hUCpiMisWP61uSOi Y546hQJtEOXoHWR0iWH5CR zyJNStFuWxwKLyvt8fODHn ZSBtYXNzLiAgVGhpcyBhcm VhIGFidXRzIHRoZSBwbGV1 dcQyHSETbBDwt0EkYFBqaU XltWldT1Ezn0BoEtobey0g AB0koyAsi6VtVNRiq0S1IM KmeaFiRKL8xN5oQGVfwB9f svS5FSIeKBXgEK9aUBkePW 2aDZdkUA5nRFOhZTdmuMvj J3nkO1Mkx7MujKLbEUdeu8 izmDPlmKTaGONsr9P5sEQz CUZYrAy9uRGyYCJrsmPmhg Uli7MoUuXbaY3qtTYnj3Jt cyBhcmUgaWRlbnRpZmllZC OyIN5gcC0mDDAkCg6sFozd O77kBU1aTiWzvgChTD11CU EaoaUpe6GowNufciHnUHRh MEK9Yx5vfRMqPS1eC1Zij9 LqwScviJ5pkcMxdMAzWASq RMPah2HvTyWaWUMkUB3ssZ Hma2OwtSyrPA7ir6Yke4So IGdpdmVuIGZvciByZXNlYX WptW0uSYgml1MeRGAlx2Jf W1FmhQdkKEMfBQT0OTqwmb 7itMNnSZTsmgAVyaneU13m ZTpccGFyIEJsdWUgOiBwbG N3ygZzzHHvHP5gOT7cURT0 VWEnlbWgJ6r9jJTuJA9kis amahgwMXZceDLtUGRhU9Su i22vK05yGKsjkfpdRLZtZX VxCAE0QJ3px8WmhD4scRxy dXJhXHBhciBMNDogQnJvbm WtkTZlnDJrD0dhBDJbwrGx YWNlXHBhciBMNTogVmFzY3 ToERWocOJqH1lpjnimKR8w WvQxIAvfCXMzPSP1ZLMqzH zoePsabt2rQHgpSztmFVL0 CWBhgZWtTNb6PoPgNOh3oF RfVI1lGVVpHDLxx1BhoCUn XHBhciBMODogMiBpbnRhY3 MelTkqcEsfhl2lOICejYXh KYYnYCXGJVvrTT44uHNjDD 5aYMPbJKSczz6gJQRnmMTj GSDrHOVmSYHdEE3nZJZbNm McnOMwUwCpad34wuD6iEHs dWVccGFyIEwxMDogUGxldX FcmPOfzKSnm5MeisVgrw5w BPKgiLIoCX3ru2IhFIbdBl WtcI2nJVDdhGYmvHXrWyLf pDZkqU6yuzzcEXYaNDRcDA 1QONE6BU6md5RvnE6tTEZt iX4bADP3zEWciOBkpMGzWL vgQq1FPXX4HG0ox4SqeM1s G2urw5CgsWKmNUDzhgUqcT 2hmUQqJAVkeB1iVBLpwzJw rpDsO1HtBFWfo0TvjEgabr rzQZDwVXY6TsOdBBs9dXHe FE2xTICmGNFed6GkxFQiYL YrvvUPKHSjGYN9GkOEWYEm EXGxDABjdX64p7p0ZZUssU FpRgEnJCEhykGonO8pQFHr soQDVYt9IX6cy5WkhE4iCz JvbmNodXNccGFyIEwyMDpN IBPaBVnjvEtbieWxyd3rhG UhWctaU0horRSiTJemHTnq XR7juyDpcOIdGPTfYYLgfx UayN8hOZziDTXfFQLuIXqd LejsArzroMYgbsS2XJZlOL VetV9cwZ8qDQHrx4RhHLDa FIX6GL6gHBOrZVWkeGDxIW AuJTRnRTZyVDrgMPKwH4Kw K6IuvhGliFLyUMLtuoIjp1 zyHGG6PJHpfEDywVGlPxSr BzpgBEH7k0ccGAXihOBaZS U8LJqapEVkRSNoPUUxXHhd MkNDPpBaBcN5IXKcFcU0Nx R4URg3VSCESrZgGkSlQtQs DSF7LKHeFEk4YRd4ZUsCLp X5CTe7XYp0LZRcWVN2ECVs HQk6UJNdXJmfiQByBHUoSE NbMSsfLYxpS85bBtJmKOQG TqRBzS9oUHQAbNemsARQeY CacuSOr8PwBbvxQMVuOyMz MCBSZWNlaXZlZCBmcmVzaC BsYWJlbGVkIHdpdGggdGhl LOKgqHxeejUkT4J1waEnWI 3qONVxXCWbR6NcXUYlF68z OGYgiR5hBZBgZM2nOCHeAQ ZrqyTjWNg9ddgzAZZxL1t8 IHVwcGVyIGxvYmUiIGlzIG ZaZM51GMosTB35LOxdMU0a IGNtIHdoaXRlIGZpYnJvdX OcvGqng8WgCJGgOTiiTG10 TWT6Ak9oePUrPOHayhO0j6 FjUWnbPF1bFmzlZZZdE3Oh O5ZhyiLhnXJvQDIwmwFvb1 jkTKT2KLDigXSkhDQpDjSm CdviEYE5b7mrLHYxcLHdML J1ICjizLEgVCBxMCQyOWab RcCKYiScPeD5QWLdTjH6Uv A0BMf2HSZGQwQpVaMyEmJo MTB0NuBsFCx1MFv8UBmOOy O0FFk4QOo2CCYwGDN8TIQd PXg6POFyWEidbQRfICYwTN WsYYvoDWukH85nZzFbYVEB XtKPaJ8tTOOFgZwpvEADlX WdyvTFy8RzKqfxKYKeYxMn MCBSZWNlaXZlZCBmcmVzaC BsYWJlbGVkIHdpdGggdGhl ILUvlZmbgiWlL4K9ymKmAR 4lKADkVPSsR6BqJJGgQ03z HKDjjC7xOZUwSL1mWFHyBA RpYWwgbHVuZywgcmlnaHQg uZLnGXJspR0rSTHjcQGaLU AwLjUgeCAwLjUgeCAwLjIg D94rt3tlxRZrBcetmb85tm R7yCUpdQQsMaOrW79kxsLx q6RakNp6pKNlNKuaCVVjcK 9xeV3oFqXzg4nouQkgj7Dx dGVuZFxwYXJccGFyZFxzbC 4yLwEqg1npoLz8ETismxA9 PQDztt84RRosDTRfI1OqA3 EmRYqfEJZ7BPIuZjCwPFOd WK0WBpXzTMuxEKZdPjkrQX k4EVp3RS7HXlCbROJrGpWh UUpqYTEeNYp1UTjlKG0PJO O6YRo2AMU9IBE6WKt3IRDd XHQgMiBcXGZsIFxcZiBBcm arjRTkVX4lsNqomrQqFZ5x UGy9anegVDOpH9j2NYPkrC VyIExvYmUuXHBhclxmczIw HHEdO7VibmHcRWZdWTFrKR jfHbOkDKIak7u2jXC9cFHf qIX7tKMmmZyzHrZyZU9jxD WbMQ7xOMimKJbsmvOjf4Hw ZS52lMIbiwJakcXeCzx0pb meAYSnS2c8DBJkdJHmWTli XzRuDlchVVgcdNIbY5dzCb QjryHsIROcOtT8WLFbQLX0 NCNlQcDczMRzD2fqWMqhnD Oxc4XaZfG9gSk2QJUesGAi h1TzYAImt8Z8NZWzqiEszW QdcPSsw9RquDt9eAWhHPby AAJeqC0uyE4aHjWhl0hqvV ufg5IhtEBjQRkeRNFhmTYe GNafiK5aZyRwm4qumDa8DD iwduU7EVRmmt73ECrnQRLa U1CgE6VxNJmfTMN0JDWtYf JxUCEuCN3XDaRiRXyjZDLa IkmnRHp6KUh2DC8YOlThCY UcQrDmCBF5VyHuRCz9FUxl YZ8XCRY2KEr2AHWwOCQ4IU k1JCCbJMBgDxYbMWYnGSev YhRTxsobwPQuOV8yoAkvxy JtPKYaGEk0wBLhWT4kKVAe XARwdkavfjYqSCNaK8Fgrf VkIGZyZXNoIGxhYmVsZWQg w6u3rEE6zLCuwMK4zAAnlF rhPfXiVV8jdSGqPG4hXDxt AZqjhqKja5OxHK99wLXqaz BhbmQgIjRSICMxIiBpcyBh IDAuNyBjbSBhbnRocmFjb3 ApJrCswX7vePDpl8HfDJcz iCdgWKGebRQquYRibK52uu Vvk9FwJEZ7ARVsMMJhZJUx sI4xUYK7lMBtiAIxgWczoQ VhfvFxuWFvQ3CeQGY5vzCq IRSiFHcbYV3rEPGeRDCqHg MkCSahqTOuF1X9sQ3oShKd VGhlIHNwZWNpbWVuIGlzIG GozOvyRYb8SUG9Hn3njKWp UOAswqCVDJ11OYAwwRLkEL Y5QC7cTTJpjyvpSUQzJNRb YFK6ADjizV56bRBsJOLxCU QxoUOpoJwfCllxtUoey1Rj dCBcXGlkIDUxMDAyIFxcZG BrY4FKTDZsQATzCnMpNXLv TRq2ULeaY3WIRUPpEVTqXW L4HVj4YsV7SBy6BIMZOy0n Kem9Pxv3XqD7VUM2RBiyXK xcdCAyIFxcZmwgXFxmIEFy eHFyCXvhteZ3APEnDaCfGX 7rDFufbFvkAy9fRK4meVVu ROOaLcFhIiNuLKl7VJRlYc Zlv1azzCSzDAfjOWR0nGXt CEOnZDCuHUWqPS15FCkgIX MgbmFtZSwgbWVkaWNhbCBy ZWNvcmQgbnVtYmVyIGFuZC KyCDRvTiHdJUddGJUtCI68 IGNtIGFudGhyYWNvdGljIG v7eCSgQS4hJHBjy5p4oWWn WKJiGKofQIOjl8OfkLTbOk KwcJIlD3pgREXiRYyaf1Yz AWVjl0O4MZB5rEJ5EIpeYG Fgd6GmfFUxDYNwRDMfasGk viZsdOSabWMciRD9JKCyrB 3zLNZjHEWinnjpZHRmE4pg oCUkVRWZkoO1cmhzYHmVSS BQQSAoQVNDUCljbXtcZXBp L6PyE5HeomT4d8qlrRyiu4 DckDGmUQ1wlHToqH== INTRAOPERATIVE q7ucwOVgAADzxIB0QvMaHK CONSULTATION (test code Ymp8trd1HknKGirAYnYBxa = [id number]) pNAwydCksp95hEU2sH36EN 2fJBTxMrY0WCAhlsF1Ygj4 ELWsSTTmwPCqE027x2axc3 anndAdjRC8gRfeXTScgdlq OhV2UHwfUMPnoujaOAb9GV gaPBQirHI7KRFbuURgX4Yy QVWpBW9ingv2NXR6HEkzZR QrPtY3UVDljJKmMWJwsKav OSjpq567XLT0NyFvZKKziz V6IQwxDTKzV1OeF0QtFNlt JCH8IIEaBSRgMWBeEXLvGZ HvNSlvviX6y0cgYBHwiCEg KXU6CLykrTXuUUIcFHJdUM rqTiWTQnAxYjW4BHOnQsH7 JvT7CWz6HZQACyBdYoVhVa FmQRN5GUxzYWa6GPq1EAaD TyP6IYReSWGqRTegFLJ3PU VqPQx6QDXfLXpevQQmBGYw REFpNEraCRofZ66srNsuaZ 5cZnMyMCBBLiBEaWFwaHJh U06lEQRyiqiwxsMgFQCDCL BIUkFHTSwgQklPUFNZOlxw YXIgLUNBTENJRklFRCBBTk AjHGtGXDlRHTdGJJOOI2NS TEVccGFyXHBhciBSZXBvcn UsAYAucRFLbh1mV140HTMc YAWaKdYJgFKeNHvuw34xVi 48DsIfZhUnBMM7RPI8KYHg r9qwwQpai5VksVAuBKqqXG AkkBXlTIhuyL6dOrKiw3ga jYx0WOhqbqW1HDJuhm50OL osTYCdM1VxQ1KsBGdrNIC2 RSAgErXiYKFtQB9LRoFePP jcNIGeDdrrKBn3TFy5CR1N DrHlPAZbYuMwLRD9EYEkPU v2VXriNO9CFEC6PHK2ORCa VQJ8PYh9WHWqEEHzUjChVE CwQCojOiIRsqzjqLLcNB9x pIeeabVlUBZpIQs4hGPxMG 5vZGUuXHBhclxmczIwIExZ CPTJXV8CXRKjPTEEIETCZ3 8jYdcxTMtQZYWFX41iGAVZ THYWNXCDXkjwpGDkRB5TGW cMCVqTHQYQI3LdDYHAFVrD IO5WCBdqVXZisAObXEAjeK 8ezBLcDKV2UQYtSmRYn5kk cB2xIBLqSVOdyDmoiDSics AzLzcvMjAyMywgYXQgMTA0 Rm10FQWxsMKpVPY2BJ2rOG BauesxFEJjIAWvDIM3SJte cQ70jXXjCVWuWVNwuMIigR mpPusfoXhff2GjvNZbUIgr AVYxFPDbBVqoGZUiG0BWNS DwZJKbKdMbTQPjNTf4FYvk W7ZCLCVySJExXFUfRDH8Nv C0LVl8UCWWGb2wIzocMXfn YlE0DPM7TYfrMWtgkJUoXO xcZmwgXFxmIEFyaWFsIFxc xoS4REUjUcVjCt3xUNYiDg cqVctudVSaTYMqWZYoST9h DT6ybJYwUAXnVsLiHIHSHh kfSyoPEBChZDFHIDQmAR4R ZROLPj8FU4sVRRytVPZYO5 oAEnagQMOeWKJYG6aFCRZG ZRDLQqUIVWsMY92DDaLTPZ MsfaelMBVdDdTak7U7UZNq WcmwOXFjZHTvrXL5qlNInd 5iVvijlDQ2HO4uOUXuGq0q OLYxKSZudENrJbE1ParnLY QuY9AhT1BelpEilXBsQSIf aoHfk7ocMDK6CGKhhCHimA SdKqHvHfxeANA7w7aqKZMw qZJbRFG5BWpstDNqVPMrBA AvESjpXrTJRrAoWpZ8NIQo MvF2KaP2TQz0OUJKAqAbJj JsLyYqAHNbZOizXKs1WHt7 KMuSXnR8HBLgUCFnRFHfVZ Q0LHCwVMc9PMVuZPijgLLe QQObLWMnDImuMZquU30gGr JbLXTDSbIArZ1gBZRNbPox wONCxGAqkkAPn8XaIhtlDI JcZnMyMCBSSUdIVCBVUFBF RkRCN1UOFRPPA74ZRFkIOS CUHRSFTB5pLKIMMnVDWSGS RVqfDNeBEXPCW735VDOsec OmQGIYU3VlNKOPJ1BQYODQ QfDEEJ0EPVNPRUJuV3NHP2 HJMHRgdkVsIq2zQMMIE8Mp SURFTlRJRklFRCBJTiBQQV ZKGnBQFS1SHIJivuuoFNMx RtNgm5N7RLKgMdycMPWkVO GrjMP8gmFDfb7oQtqmvSO6 PY3pQSTfSl5gACBaEHGskN PwReG2JemyWOAgW9HmL4Zt zvJ1s1qvzLwnh0MvrWFtJO 1ccGFyfQ== MICROSCOPIC DESCRIPTION y6aobKBsSSDypEO1LcXrMZ (test code = 3371) Hma2oey7EkzKVutKOiOZgu vTWsssHbhq71xFS8bD35BA 9gWGHcIdB3HYScieY0Plu3 ZRVoIDXqsFRlG731w9xbw6 fphaAzzCL7pObmSIBvfvqa VlH5HJipOWQyclazXQp1KD nnDAKsmZC9MPGeuAKgX3Xw KNMjOP7appn1SMN2GDefWN SqTaL2ZRSqcQTlTQHegUwx GNvts673MFQ5KeEhRYSvbr LozKzrwD7bJxBtTDAOEYJl q7WxSNGriUZzeF== [facility] [id number] 16:43:29Surgical Pathology Report Case: [id number] Authorizing Provider: Izabela Galvan Jr., Collected:08/15/2022 09:30 AM Ordering Location: [facility] Received: 08/15/2022 09:37 AM PERIOPERATIVESERVICES Pathologist: Jose Luis Mendieta MD Specimens: A) - Diaphragm, DIAPHRAGM BIOPSY B) - LymphNode, station 10R lymph node C) - Lymph Node, lymph node station 7 D) - Lymph Node, station 7 lymph node #2 E) - Lymph Node, station 7 lymph node #3 F) - Lymph Node, station 11R lymph node #1 G) - Lymph Node, station 11R lymph node #2 H) - Lymph Node, station 11R lymph node #3 I) - Lymph Node, [id number] lymph node #4 J) - Lung, Right Upper Lobe, right upper lobe bronchial margin mebrane K) - Lung, Right Upper Lobe, right upper lobe bronchial margin cartillage L) - Lung, Right Upper Lobe, right upper lobe M) - Lung, Right Upper Lobe, right upper lobe bronchial margin mebrane lateral N) - Lung, Right Upper Lobe, right upper lobe bronchial margin mebrane medial O) - Lung, Right Upper Lobe, right upper lobe bronchial margin mebrane final P) - Lymph Node, station 4R lymph node #1 Q) - Lymph Node, station 4R lymph node #2 This addendum is being issued to report results of PDL-1 immunostain performedat [facility].RESULT: PDL-1 (22C3 clone): PDL-1 (22C3 clone): NOT EXPRESSED TPS SCORE:0Please see attached scanned report for further detailsAddendum electronically signed by Jose Luis Mendieta MD on 08/23/2022 at 4:43 PMA. DIAPHRAGM, BIOPSY FOR FROZEN SECTION: - NEGATIVE FOR MALIGNANCY - SCARRING AND CHRONIC INFLAMMATIONB. LYMPH NODE, STATION 10 R, RESECTION: - METASTATIC SQUAMOUS CARCINOMA INVOLVING 1 OF 2 LYMPH NODES (1/2)C. LYMPH NODE, STATION 7, RESECTION FOR FROZEN SECTION: - ONE BENIGN LYMPH NODE (0/1)D. LYMPH NODE, STATION 7 #2, RESECTION: - ONE BENIGN LYMPH NODE (0/1)E. LYMPH NODE, STATION 7 #3, RESECTION: - ONE BENIGN LYMPH NODE (0/1)F. LYMPH NODE, STATION 11 R #1, RESECTION: - ONE BENIGN LYMPH NODE (0/1)G. LYMPH NODE, STATION 11 R #2, RESECTION: - ONE BENIGN LYMPH NODE (0/1)H. LYMPH NODE, STATION 11 R #3, RESECTION: - ONE BENIGN LYMPH NODE (0/1)I. LYMPH NODE, STATION 11 R #4, RESECTION: - ONE BENIGN LYMPH NODE (0/1)J. LUNG, RIGHT UPPER LOBE, BRONCHIAL MARGIN MEMBRANE,FROZEN SECTION: - SQUAMOUS CELL CARCINOMA (FINAL MARGINS NEGATIVE: SPECIMENS M, N, O)K. LUNG, RIGHT UPPER LOBE, BRONCHIAL MARGIN CARTILAGE, FROZEN SECTION: - TUMOR PRESENT IN LYMPHATIC SPACES - BRONCHIAL MARGIN PROPER, NEGATIVE FOR MALIGNANCYL. LUNG, RIGHT UPPER LOBE, LOBECTOMY: - INVASIVE SQUAMOUS CELL CARCINOMA, MODERATE TO POORLY DIFFERENTIATED - TUMOR MEASURES 8.2 X 6.9 X 5.0 CM - TUMOR INVADES VISCERAL PLEURA - ADHERENT PARIETAL PLEURA, UNINVOLVED - LYMPHOVASCULAR INVASION IS IDENTIFIED - BRONCHIAL, VASCULAR AND PARENCHYMAL RESECTION MARGINS, NEGATIVE FOR MALIGNANCY - BRONCHIAL MARGIN: 1.5 CM AWAY - VASCULAR MARGIN: 1.6 CM AWAY - PARENCHYMAL MARGIN: 0.6 CM AWAY - METASTATIC SQUAMOUS CARCINOMAINVOLVING 1 OF 4 LYMPH NODES (1/4) - UNINVOLVED LUNG PARENCHYMA WITH PERIBRONCHIOLAR METAPLASIA AND FOCAL MICROSCOPIC HONEYCOMBING - PATHOLOGIC STAGING: [id number] (AJCC 8th ed) M. LUNG, RIGHT UPPER LOBE,BRONCHIAL MARGIN MEMBRANE, LATERAL, RESECTION: - NEGATIVE FOR MALIGNANCYN. LUNG, RIGHT UPPER LOBE, BRONCHIAL MARGIN MEMBRANE, MEDIAL, RESECTION: - NEGATIVE FOR MALIGNANCYO. LUNG, RIGHT UPPER LOBE, BRONCHIAL MARGIN MEMBRANE, FINAL, RESECTION: - NEGATIVE FOR MALIGNANCYP. LYMPH NODE, STATION 4R #1, RESEC TION:- FIVE BENIGN LYMPH NODES (0/5)Q. LYMPH NODE, STATION 4R #2, RESECTION: - ONE BENIGN LYMPH NODE(0/1) Signing Pathologist Direct Phone Line: [phone] signed by Jose Luis Mendieta MD on 08/18/2022 at 11:11 AMBiomarker study:Tumor: [id number]: [id number] will be sent to [facility] f or biomarker testing. Results will be reported in an addendum.LUNGLUNG: RESECTION - All [id number] - Protocol posted: 2SPECIMEN Procedure: Lobectomy Specimen Laterality: Right TUMOR Tumor Focality: Single focus Tumor Site: Upper lobe of lung Tumor Size: Total Tumor Size (size of enti re tumor): Greatest Dimension (Centimeters): 8.2 cm Additional Dimension (Centimeters): 6.9 cm Additional Dimension (Centimeters): 5 cm Histologic Type: Invasive squamous cell carcinoma, keratinizing Histologic Grade: G3, poorly differentiated Spread Through Air Spaces (DAKOTA): Not identified Visceral Pleura Invasion: Present Direct Invasion of Adjacent Structures: Not applicable (no adjacent structures present) Treatment Effect: No known presurgical therapy Lymphovascular Invasion: Present MARGINS Margin Status for Invasive Carcinoma: All margins negative for invasive carcinoma Closest Margin(s) to Invasive Carcinoma: Parenchymal Distance from Invasive Carcinoma to Closest Margin: 0.6 cm Margin Status for Non-Invasive Tumor: Not applicable REGIONAL LYMPH NODES Lymph Node(s) from Prior Procedures: No known prior lymph node sampling performed Regional Lymph Node Status: : Tumor present in regional lymph node(s) Number of Lymph Nodes with Tumor: 2 Alex Site(s) with Tumor: 10R: Hilar Extranodal Extension: Not identified Number of Lymph Nodes Examined: 19 Alex Site(s) Examined: 4R: Lower paratracheal Alex Site(s) Examined: 10R: Hilar Alex Site(s) Examined: 11R: Interlobar Alex Site(s) Examined: 7: Subcarinal DISTANT METASTASISPATHOLOGIC STAGE CLASSIFICATION (pTNM, AJCC 8th Edition) Reporting of pT, pN, and (when applicable) pM categories is based on information available to the pathologist at the time the report is issued. As per the AJCC (Chapter 1, 8th Ed.) it is the managing physician's responsibility to establish the final pathologic stage based upon all pertinent information, including but potentially not limited to this pathology report. pT Category: pT4 pN Category: pN1 [id number]. Diaphragm.The specimen is received fresh for frozen section diagnosis, labeled with the patient's name, MRN and "diaphragm" is a 2 x 0.8 x 0.4 cm irregular, fuchs-white, fibrotic tissue submitted in toto in FS A1.B. Lymph Node.Received in formalin labeled with the patient's name, ut dical record number and "10 R" are 2 anthracotic lymph nodes measuring 2.5 cm and 0.5 cm. The largerlymph node is bisected and the specimen is entirely submitted.Section code:B1: 1 intact lymph nodeB2-B3: 1 lymph node, bisectedC. Lymph Node.The specimen is received fresh for frozen section diagnosis,labeled with the patient's name, MRN and "L7" is a 1.5 x 0.9 x 0.7 cm anthracotic lymph node. The specimen is bisected and a touch prep is made. The specimen is entirely submitted in FS C1.D. Lymph Node.Received fresh labeled with the patient's name, medical record number and "L7" is a 1.9 cm previously incised anthracotic lymph node that is bisected and entirely submitted in D1-D2.E. Lymph Node.Received fresh labeled with the patient's name, medical record number and "L7 #3" is a 3.7 x 1.6 x 1.0 cmanthracotic lymph node with a small amount of attached adipose tissue. Specimen is serially sectioned and entirely submitted in E1-E5.F. Lymph Node.Received fresh labeled with the patient's name, medical record number and "11 R #1" is a 1.1 cm anthracotic lymph node submitted in toto in F1.G. Lymph Node.Received fresh labeled with the patient's name, medical record number and "11 R #2" is a 3.7 cm anthracotic lymph node that is bisected and entirely submitted in G1-G2.H. Lymph Node.Received fresh labeled with the patient's name, medical record number and "11 R #3" is a 1.0 cm anthracotic lymph nodethat is bisected and entirely submitted in H1.I. Lymph Node.Received fresh labeled with the patient's name, medical record number and "11 R #4" is a 1.0 cm anthracotic lymph node fragmented into 2 pieces submitted in toto in I1.J. Lung, Right Upper Lobe.The specimen is received fresh for frozen section diagnosis, labeled with the patient's name, MRN and "lung, right upper lobe" is a 0.7 x 0 point 3 x0.2 cm pink soft tissue fragment submitted in toto in FS J1.K. Lung, Right Upper Lobe.The specimen is received fresh for frozen section diagnosis, labeled with the patient's name, MRN and "lung, right upper lobe" is a 0.6 x 0.2 x 0.2 cm pink soft tissue fragment submitted in toto in K1.L. Lung, Right Upper Lobe.Received fresh labeled with the patient's name, MRN and" lung, RUL" is a 413 g, 5 x 10.8 x6.2 cm lung lobectomy transected at the secondary bronchus. Also received in the same container is a4.5 x 3.0 x 0.2 cm pink-white fibromembranous tissue with a small amount of attached adipose tissue.The pleural surface has a small amount of adipose tissue on the anterior surface of the apex. Within the mid area of the anterior pleura is an area of puckering. The remaining pleura is red, smooth to shaggy with areas of fibrosis and adhesions. The lung is serially sectioned to reveal an 8.2 x 6.9 x 5.0 cm ill- defined, fuchs-white to yellow, firm, focally necrotic mass causing the pleural puckering onthe anterior surface. The mass is 1.5 from the bronchial margin, 1.6 cm from the pulmonary artery margin, and abuts the pleura and the attached adipose tissue. The mass does involve the bronchus.In theinferior aspect of the specimen is a 5.7 x 2.8 x 1.4 cm firm fuchs-red, partially anthracotic area that is 2.2 cm from the mass. This area abuts the pleura. The separate piece of fibromembranous tissue is sectioned to reveal a 0.2 x 0.2 x 0.2 cm well- circumscribed, white hard nodule. Multiple anthracotic lymph nodes are identified ranging 0.3-1.7 cm. Studio G[employer] sections are submitted. Gross photographs are taken. A sample of the mass was given for research. Gross photographs are taken.Ink code:Blue : pleuraOrange : parenchymal marginSection code: L1-L3: Mass to pleuraL4: Bronchus margin, en faceL5: Vascular margins, en faceL6: 1 lymph node, bisectedL7: 1 lymph node, bisectedL8: 2 intact lymph no desL9: Entire nodule from separate piece of fibromembranous ybbquvJ98: Pleural fibrosis ovoid firm mass, inferior aspect of specimenL 11-L12: Mass to adipose fsaramQ98-G52: Mass to closest parenchymal margin, perpendicular grrblcgI69: 1 lymph node, jcmiiduhA23-O48: Mass to uninvolved lung eocuobabfqP62: Mass to epvscufzZ37:Mass with necrosis oxblkS34: Uninvolved parenchyma,L22-L23: Firm fuchs area in inferior aspect of specimen to pleuraM. Lung, Right Upper Lobe.Received fresh labeled with the patient's name, medical record number and "lateral lung, right upper lobe" is a 0.7 x 0.4 x 0.3 cm white fibrous tissue fragment submitted in toto in M1.N. Lung, Right Upper Lobe.Received fresh labeled with the patient's name, medical record number and "medial lung, right upper lobe" is a 0.5 x 0.5 x 0.2 cm white fibrous tissue fragment submitted in toto in N1.O. Lung, Right Upper Lobe.Received fresh labeled with the patient's name, medical record number and "lung, right upper lobe final margin" is a 1.2 x 0.5 x 0.3 cm aggregate of 2 white fibrous tissue fragments submitted in toto in O1.P. Lymph Node.Received fresh labeled with the patient's name, medical record number and "4R #1" is a 0.7 cm anthracotic lymph node with a small amount of attached adipose tissue that is bisected to reveal an area of calcification. The specimen is entirely submitted in P1.Q. Lymph Node.Received fresh labeled with the patient's name, medical record number and "4R #2" is a 0.7 cm anthracotic lymph node with a small amount of attached adipose tissue that is bisected and entirely submitted in Q1.KAREY Paredes, GIANFRANCO ([facility])centrifugal drier operator. Diaphragm.DIAPHRAGM, BIOPSY:-CALCIFIED AND HYALINIZED NODULEReported by Dr. Gandhi to Dr. Galvanon 08/15/2022, at 0955.C. Lymph Node.LYMPH NODE, STATION 7, EXCISION, TP AND FS:- NEGATIVE FOR MALIGNANCYReported by Dr. Gandhi to Dr. Galvan on 08/15/2022, at 1043.J. Lung, Right Upper Lobe.LUNG, RIGHT UPPER LOBE BRONCHIAL MARGIN:-POSITIVE FOR MALIGNANCYReported by Dr. Gandhi to Dr. Galvan on 08/15/2022, at 1239.K. Lung, Right Upper Lobe.RIGHT UPPER LOBE BRONCHIAL MARGIN, CARTILAGE, EXCISION:-TUMOR PRESENT IN LYMPHATIC SPACES-NO TUMOR IDENTIFIED IN PARENCHYMAReported by Dr. Gandhi to Dr. Galvan on 08/15/2022, at 1239.PerformedRAD, CHEST, 1 VIEW, NON [id number] 12:51:00Reason for exam:->CT [facility] 1955 Sex: MFINAL REPORT CLINICAL HISTORY: CT removal TECHNIQUE: 1 view of the chest. COMPARISON: 08/23/2022 IMPRESSION: The right apical chest tube has been removed. There is no pneumothorax. Right asymmetric pleural-parenchymal opacities are similar. The cardiomediastinal silhouette is magnified by technique. Signed: Chika Leggett Verified Date/Time: 08/23/2022 12:51:04 Reading Location: [address] Reading Room RAD, CHEST, 1 VIEW, NON [id number] 10:52:00Reason for exam:->post-opShould this be performed at the bedside?->Yes [facility] : 1955 Sex: MFINAL REPORT CLINICAL HISTORY: post-op TECHNIQUE: 1 view of the chest. COMPARISON: 08/22/2022 IMPRESSION: A right chest tube is again seen. No pneumothorax. Bilateral airspace opacities are again noted. Right greater than left pleural effusions are unchanged. Elevation of the right hemidiaphragm is again seen. The cardiomediastinal silhouette is magnified by technique. Signed: Chika Leggett MDReport Verified Date/Time: 08/23/2022 10:52:08 Reading Location: [address] Reading Room (CELLAVISION MANUAL DIFF)2022-08-23 07:16:06 Test Item Value Reference Range Interpretation Comments NEUTROPHILS - REL 82 % (CELLAVISION)(BEAKER) (test code = 2816) LYMPHOCYTES - REL 4 % (CELLAVISION)(BEAKER) (test code = 2817) MONOCYTES - REL 11 % (CELLAVISION)(BEAKER) (test code = 2818) EOSINOPHILS - REL 1 % (CELLAVISION)(BEAKER) (test code = 2819) PROMYELOCYTES - REL 1 % 0-0 H (CELLAVSION)(BEAKER) (test code = 2825) ATYPICAL LYMPHOCYTES - REL 1 % 0-0 H (CELLAVISION)(BEAKER) (test code = 2829) NEUTROPHILS - ABS 9.84 K/ul 1.78-5.38 H (CELLAVISION)(BEAKER) (test code = 2830) LYMPHOCYTES - ABS 0.48 K/ul 1.32-3.57 L (CELLAVISION)(BEAKER) (test code = 2831) MONOCYTES - ABS 1.32 K/uL 0.30-0.82 H (CELLAVISION)(BEAKER) (test code = 2832) EOSINOPHILS - ABS 0.12 K/uL 0.04-0.54 (CELLAVISION)(BEAKER) (test code = 2834) PROMYELOCYTES - ABS 0.12 K/uL 0.00-0.00 H (CELLAVISION)(BEAKER) (test code = 2838) ATYPICAL LYMPHOCYTES - ABS 0.12 K/uL 0.00-0.00 H (CELLAVISION)(BEAKER) (test code = 2858) TOTAL COUNTED (BEAKER) (test code 100 = 1351) MANUAL NRBC PER 100 CELLS (BEAKER) 3 /100 WBC 0-0 H (test code = 1353) WBC MORPHOLOGY (BEAKER) (test code Normal = 487) GIANT PLATELETS (BEAKER) (test Present code = 313) POLYCHROMATOPHILLIC RBCS(BEAKER) 3+ many (test code = 478) ANISOCYTOSIS (BEAKER) (test code = 1+ few 961) PLATELET CONCENTRATION Increased (CELLAVISION)(BEAKER) (test code = 3438) Steelworker ID - joseph Solitario comments: Slide comments:CBC W/PLT COUNT & AUTO [id number] 07:16:05 Test Item Value Reference Range Interpretation Comments WHITE BLOOD CELL COUNT 12.0 K/ L 3.5-10.5 H (BEAKER) (test code = 775) RED BLOOD CELL COUNT 3.75 M/ L 4.63-6.08 L (BEAKER) (test code = 761) HEMOGLOBIN (BEAKER) 10.9 GM/DL 13.7-17.5 L (test code = 410) HEMATOCRIT (BEAKER) 34.0 % 40.1-51.0 L (test code = 411) MEAN CORPUSCULAR 91 fL 79-92 Discordant results VOLUME (BEAKER) (test compar ed to previous code = 753) results; clinic al correlation req uired MEAN CORPUSCULAR 29.1 pg 25.7-32.2 HEMOGLOBIN (BEAKER) (test code = 751) MEAN CORPUSCULAR 32.1 GM/DL 32.3-36.5 L HEMOGLOBIN CONC (BEAKER) (test code = 752) RED CELL DISTRIBUTION 14.0 % 11.6-14.4 WIDTH (BEAKER) (test code = 412) PLATELET COUNT 477 K/CU MM 150-450 H (BEAKER) (test code = 756) MEAN PLATELET VOLUME 9.1 fL 9.4-12.4 L (BEAKER) (test code = 754) NUCLEATED RED BLOOD 0 /100 WBC 0-0 CELLS (BEAKER) (test code = 413) [id number] 04:34:50 Test Item Value Reference Range Interpretation Comments MAGNESIUM (BEAKER) (test code = 2.1 mg/dL 1.6-2.6 627) Steelworker ID - ADMINBASIC METABOLIC [id number] 04:34:49 Test Item Value Reference Range Interpretation Comments SODIUM (BEAKER) 135 meq/L 136-145 L (test code = 381) POTASSIUM 4.4 meq/L 3.5-5.1 (BEAKER) (test code = 379) CHLORIDE (BEAKER) 94 meq/L 98-107 L (test code = 382) CO2 (BEAKER) 33 meq/L 22-29 H (test code = 355) BLOOD UREA 12 mg/dL 7-21 NITROGEN (BEAKER) (test code = 354) CREATININE 0.81 mg/dL 0.57-1.25 (BEAKER) (test code = 358) GLUCOSE RANDOM 114 mg/dL 70-105 H (BEAKER) (test code = 652) CALCIUM (BEAKER) 9.4 mg/dL 8.4-10.2 (test code = 697) EGFR (BEAKER) 96 Interpretatio n of eGFR (test code = mL/min/1.73 values Stage De scription 1092) sq m Result G1 Leela l or high >=90 G2 Mildly decreased 60-89 G3a Mildl y to moderately 45-5 9 G3b Moderately to s everely 30-44 G4 Severl y decreased 15-29 G5 Kidne y failure <15Reported eGF R is based on the CKD-EPI 2020 equation that d oes not use a race coefficientEsti mated GFR is not as accur ate as Creatinine Shagufta goldsmith in predicting glom erular filtration rate . Estimated GFR is not appl icable for dialysis patien ts Steelworker ID - ADMINRAD, CHEST, 1 VIEW, NON [id number] 16:20:00Reason for exam:->cht clamped, eval for increased pnuemoShould this be performed at the bedside?->[facility] : 1955 Sex: MFINAL REPORT Chest, one view. HISTORY: cht clamped, eval for increased pneumo COMPARISON: Radiograph from earlier today IMPRESSION: Unchanged positioning of a right chest tube. Small bilateral pleural effusions. No pneumothorax. The lung volumes are low with mild bibasilar atelectasis. The prominent interstitial opacities of lungs are concerning for interstitial pulmonary edema. The cardiac silhouette is unchanged in size. Recent right thoracotomy. Signed: Sommer nKott Verified Date/Time: 08/22/2022 16:20:12 RAD, CHEST, 1 VIEW, NON [id number] 13:06:00Reason for exam:->post-opShould this be performed at the bedside?->Yes [facility] 1955 Sex: MFINAL REPORT CLINICAL HISTORY: post-op TECHNIQUE: 1 view of the chest. COMPARISON: 08/21/2022 IMPRESSION: One of the 2 right chest tubes has been removed. No definite pneumothorax. Diffusebilateral airspace opacities unchanged. Blunting of the costophrenic angles again seen. Cardiomediastinal silhouette unchanged. Signed: Chika Leggett Verified Date/Time: 08/22/2022 13:06:42 Reading Location: [address] Reading Room BASIC METABOLIC [id number] 05:49:27 Test Item Value Reference Range Interpretation Comments SODIUM (BEAKER) 137 meq/L 136-145 (test code = 381) POTASSIUM 4.5 meq/L 3.5-5.1 (BEAKER) (test code = 379) CHLORIDE (BEAKER) 99 meq/L 98-107 (test code = 382) CO2 (BEAKER) 30 meq/L 22-29 H (test code = 355) BLOOD UREA 8 mg/dL 7-21 NITROGEN (BEAKER) (test code = 354) CREATININE 0.69 mg/dL 0.57-1.25 (BEAKER) (test code = 358) GLUCOSE RANDOM 93 mg/dL 70-105 (BEAKER) (test code = 652) CALCIUM (BEAKER) 9.3 mg/dL 8.4-10.2 (test code = 697) EGFR (BEAKER) 100 Interpretatio n of eGFR (test code = mL/min/1.73 values Stage De scription 1092) sq m Result G1 Leela l or high >=90 G2 Mildly decreased 60-89 G3a Mildl y to moderately 45-5 9 G3b Moderately to s everely 30-44 G4 Severl y decreased 15-29 G5 Kidney failure <15Reported eGF R is based on the CKD-EPI 2020 equation that d oes not use a race coefficientEsti mated GFR is not as accur ate as Creatinine Shagufta goldsmith in predicting glom erular filtration rate . Estimated GFR is not appl icable for dialysis patien ts Steelworker ID - OLGA [id number] 05:49:27 Test Item Value Reference Range Interpretation Comments MAGNESIUM (BEAKER) (test code = 2.2 mg/dL 1.6-2.6 627) Steelworker ID Mart SEPINOZA WCBC W/PLT COUNT & AUTO [id number] 05:31:22 Test Item Value Reference Range Interpretation Comments WHITE BLOOD CELL COUNT (BEAKER) 7.4 K/ L 3.5-10.5 (test code = 775) RED BLOOD CELL COUNT (BEAKER) 3.25 M/ L 4.63-6.08 L (test code = 761) HEMOGLOBIN (BEAKER) (test code = 9.6 GM/DL 13.7-17.5 L 410) HEMATOCRIT (BEAKER) (test code = 30.7 % 40.1-51.0 L 411) MEAN CORPUSCULAR VOLUME (BEAKER) 95 fL 79-92 H (test code = 753) MEAN CORPUSCULAR HEMOGLOBIN 29.5 pg 25.7-32.2 (BEAKER) (test code = 751) MEAN CORPUSCULAR HEMOGLOBIN CONC 31.3 GM/DL 32.3-36.5 L (BEAKER) (test code = 752) RED CELL DISTRIBUTION WIDTH 14.3 % 11.6-14.4 (BEAKER) (test code = 412) PLATELET COUNT (BEAKER) (test 334 K/CU MM 150-450 code = 756) MEAN PLATELET VOLUME (BEAKER) 9.3 fL 9.4-12.4 L (test code = 754) NUCLEATED RED BLOOD CELLS 0 /100 WBC 0-0 (BEAKER) (test code = 413) NEUTROPHILS RELATIVE PERCENT 61 % (BEAKER) (test code = 429) LYMPHOCYTES RELATIVE PERCENT 15 % (BEAKER) (test code = 430) MONOCYTES RELATIVE PERCENT 16 % (BEAKER) (test code = 431) EOSINOPHILS RELATIVE PERCENT 6 % (BEAKER) (test code = 432) BASOPHILS RELATIVE PERCENT 1 % (BEAKER) (test code = 437) NEUTROPHILS ABSOLUTE COUNT 4.52 K/ L 1.78-5.38 (BEAKER) (test code = 670) LYMPHOCYTES ABSOLUTE COUNT 1.14 K/ L 1.32-3.57 L (BEAKER) (test code = 414) MONOCYTES ABSOLUTE COUNT (BEAKER) 1.17 K/ L 0.30-0.82 H (test code = 415) EOSINOPHILS ABSOLUTE COUNT 0.45 K/ L 0.04-0.54 (BEAKER) (test code = 416) BASOPHILS ABSOLUTE COUNT (BEAKER) 0.05 K/ L 0.01-0.08 (test code = 417) IMMATURE GRANULOCYTES-RELATIVE 0.80 % 0.00-1.00 PERCENT (BEAKER) (test code = 2801) RAD, CHEST, 1 VIEW, NON [id number] 12:19:00Reason for exam:->post-opShould this be performed at the bedside?->Yes [facility] 1955 Sex: MFINAL REPORT CLINICAL HISTORY: post-op TECHNIQUE: 1 view of the chest. COMPARISON: 08/20/2022 IMPRESSION: 2 right-sided chest tubes are again seen. A right-sided pneumothorax is again suspected with increased pleural fluid. Bilateral airspace opacities are unchanged. The cardiomediastinalsilhouette is magnified by technique. Signed: Chika Leggett [facility] Verified Date/Time: 08/21/2022 12:19:19 Reading Location: [address] Reading Room BASI METABOLIC [id number] 04:37:06 Test Item Value Reference Range Interpretation Comments SODIUM (BEAKER) 138 meq/L 136-145 (test code = 381) POTASSIUM 4.6 meq/L 3.5-5.1 (BEAKER) (test code = 379) CHLORIDE (BEAKER) 98 meq/L 98-107 (test code = 382) CO2 (BEAKER) 36 meq/L 22-29 H (test code = 355) BLOOD UREA 7 mg/dL 7-21 NITROGEN (BEAKER) (test code = 354) CREATININE 0.75 mg/dL 0.57-1.25 (BEAKER) (test code = 358) GLUCOSE RANDOM 95 mg/dL 70-105 (BEAKER) (test code = 652) CALCIUM (BEAKER) 9.2 mg/dL 8.4-10.2 (test code = 697) EGFR (BEAKER) 98 Interpretatio n of eGFR (test code = mL/min/1.73 values Stage De scription 1092) sq m Result G1 Leela l or high >=90 G2 Mildly decreased 60-89 G3a Mildl y to moderately 45-5 9 G3b Moderately to s everely 30-44 G4 Severl y decreased 15-29 G5 Kidney failure <15Reported eGF R is based on the CKD-EPI 1 equation that d oes not use a race coefficientEsti mated GFR is not as accur ate as Creatinine Shagufta rupal in predicting glom erular filtration rate . Estimated GFR is not appl icable for dialysis patien ts Steelworker ID - OLGA [id number] 04:37:06 Test Item Value Reference Range Interpretation Comments MAGNESIUM (BEAKER) (test code = 2.2 mg/dL 1.6-2.6 627) Steelworker ID - OLGA WCBC W/PLT COUNT & AUTO [id number] 03:57:32 Test Item Value Reference Range Interpretation Comments WHITE BLOOD CELL COUNT (BEAKER) 6.4 K/ L 3.5-10.5 (test code = 775) RED BLOOD CELL COUNT (BEAKER) 2.99 M/ L 4.63-6.08 L (test code = 761) HEMOGLOBIN (BEAKER) (test code = 8.8 GM/DL 13.7-17.5 L 410) HEMATOCRIT (BEAKER) (test code = 27.7 % 40.1-51.0 L 411) MEAN CORPUSCULAR VOLUME (BEAKER) 93 fL 79-92 H (test code = 753) MEAN CORPUSCULAR HEMOGLOBIN 29.4 pg 25.7-32.2 (BEAKER) (test code = 751) MEAN CORPUSCULAR HEMOGLOBIN CONC 31.8 GM/DL 32.3-36.5 L (BEAKER) (test code = 752) RED CELL DISTRIBUTION WIDTH 14.6 % 11.6-14.4 H (BEAKER) (test code = 412) PLATELET COUNT (BEAKER) (test 270 K/CU MM 150-450 code = 756) MEAN PLATELET VOLUME (BEAKER) 9.0 fL 9.4-12.4 L (test code = 754) NUCLEATED RED BLOOD CELLS 0 /100 WBC 0-0 (BEAKER) (test code = 413) NEUTROPHILS RELATIVE PERCENT 61 % (BEAKER) (test code = 429) LYMPHOCYTES RELATIVE PERCENT 16 % (BEAKER) (test code = 430) MONOCYTES RELATIVE PERCENT 16 % (BEAKER) (test code = 431) EOSINOPHILS RELATIVE PERCENT 5 % (BEAKER) (test code = 432) BASOPHILS RELATIVE PERCENT 1 % (BEAKER) (test code = 437) NEUTROPHILS ABSOLUTE COUNT 3.94 K/ L 1.78-5.38 (BEAKER) (test code = 670) LYMPHOCYTES ABSOLUTE COUNT 1.05 K/ L 1.32-3.57 L (BEAKER) (test code = 414) MONOCYTES ABSOLUTE COUNT (BEAKER) 1.01 K/ L 0.30-0.82 H (test code = 415) EOSINOPHILS ABSOLUTE COUNT 0.35 K/ L 0.04-0.54 (BEAKER) (test code = 416) BASOPHILS ABSOLUTE COUNT (BEAKER) 0.04 K/ L 0.01-0.08 (test code = 417) IMMATURE GRANULOCYTES-RELATIVE 0.80 % 0.00-1.00 PERCENT (BEAKER) (test code = 2801) RAD, CHEST, 1 VIEW, NON [id number] 07:52:00Reason for exam:->post-opShould this be performed at the bedside?->Yes [facility] 1955 Sex: MFINAL REPORT RAD, CHEST, 1 VIEW, NON DEPT INDICATION: post-op COMPARISON: Prior day's exam FINDINGS: Portable frontal view of the chest. IMPRESSION: Support Lines: Two right-sided chest tubes. Central catheter tip overlies the atriocaval junction. Lungs and pleura: Unchanged diffuse inter stitial thickening, representing singly or in combination, interstitial edema and/or pneumonitis. Small right basilar pneumothorax with chest tubes in place. Heart and mediastinum: Stable contours. Stable surgical changes. Additional findings: None. Signed: Sondra Winkler Verified Date/Time:08/20/2022 07:52:50 [id number] 05:36:30 Test Item Value Reference Range Interpretation Comments MAGNESIUM (BEAKER) 2.0 mg/dL 1.6-2.6 Specimen slightly (test code = 627) hemolyzed Steelworker ID - DREW GBASIC METABOLIC [id number] 05:36:30 Test Item Value Reference Range Interpretation Comments SODIUM (BEAKER) 137 meq/L 136-145 (test code = 381) POTASSIUM 4.2 meq/L 3.5-5.1 Specimen slight ly (BEAKER) (test hemolyzed code = 379) CHLORIDE (BEAKER) 99 meq/L 98-107 (test code = 382) CO2 (BEAKER) 33 meq/L 22-29 H (test code = 355) BLOOD UREA 7 mg/dL 7-21 NITROGEN (BEAKER) (test code = 354) CREATININE 0.72 mg/dL 0.57-1.25 Specimen slight ly (BEAKER) (test hemolyzed code = 358) GLUCOSE RANDOM 91 mg/dL 70-105 (BEAKER) (test code = 652) CALCIUM (BEAKER) 8.6 mg/dL 8.4-10.2 (test code = 697) EGFR (BEAKER) 99 Interpretatio n of eGFR (test code = mL/min/1.73 values Stage De scription 1092) sq m Result G1 Leela l or high >=90 G2 Mildly decreased 60-89 G3a Mildl y to moderately 45-5 9 G3b Moderately to s everely 30-44 G4 Severl y decreased 15-29 G5 Kidney failure <15Reported eGF R is based on the CKD-EPI 2020 equation that d oes not use a race coefficientEsti mated GFR is not as accur ate as Creatinine Shagufta goldsmith in predicting glom erular filtration rate . Estimated GFR is not appl icable for dialysis patien ts Steelworker ID - DREW GCBC W/PLT COUNT & AUTO [id number] 05:17:37 Test Item Value Reference Range Interpretation Comments WHITE BLOOD CELL COUNT (BEAKER) 7.5 K/ L 3.5-10.5 (test code = 775) RED BLOOD CELL COUNT (BEAKER) 2.95 M/ L 4.63-6.08 L (test code = 761) HEMOGLOBIN (BEAKER) (test code = 8.6 GM/DL 13.7-17.5 L 410) HEMATOCRIT (BEAKER) (test code = 26.8 % 40.1-51.0 L 411) MEAN CORPUSCULAR VOLUME (BEAKER) 91 fL 79-92 (test code = 753) MEAN CORPUSCULAR HEMOGLOBIN 29.2 pg 25.7-32.2 (BEAKER) (test code = 751) MEAN CORPUSCULAR HEMOGLOBIN CONC 32.1 GM/DL 32.3-36.5 L (BEAKER) (test code = 752) RED CELL DISTRIBUTION WIDTH 15.0 % 11.6-14.4 H (BEAKER) (test code = 412) PLATELET COUNT (BEAKER) (test 240 K/CU MM 150-450 code = 756) MEAN PLATELET VOLUME (BEAKER) 9.4 fL 9.4-12.4 (test code = 754) NUCLEATED RED BLOOD CELLS 0 /100 WBC 0-0 (BEAKER) (test code = 413) NEUTROPHILS RELATIVE PERCENT 70 % (BEAKER) (test code = 429) LYMPHOCYTES RELATIVE PERCENT 11 % (BEAKER) (test code = 430) MONOCYTES RELATIVE PERCENT 13 % (BEAKER) (test code = 431) EOSINOPHILS RELATIVE PERCENT 5 % (BEAKER) (test code = 432) BASOPHILS RELATIVE PERCENT 0 % (BEAKER) (test code = 437) NEUTROPHILS ABSOLUTE COUNT 5.25 K/ L 1.78-5.38 (BEAKER) (test code = 670) LYMPHOCYTES ABSOLUTE COUNT 0.82 K/ L 1.32-3.57 L (BEAKER) (test code = 414) MONOCYTES ABSOLUTE COUNT (BEAKER) 0.98 K/ L 0.30-0.82 H (test code = 415) EOSINOPHILS ABSOLUTE COUNT 0.40 K/ L 0.04-0.54 (BEAKER) (test code = 416) BASOPHILS ABSOLUTE COUNT (BEAKER) 0.03 K/ L 0.01-0.08 (test code = 417) IMMATURE GRANULOCYTES-RELATIVE 0.50 % 0.00-1.00 PERCENT (BEAKER) (test code = 2801) Prepare Leuko-Red [id number] 23:54:00 Test Item Value Reference Range Interpretation Comments CROSSMATCH (test code = 2264) COMPATIBLE Unit ABO (test code = A Pos [id number]) UNIT NUMBER (test code = [id number] 934-0) Status (test code = 5473111) TX_TIMEINCHART Blood Bank Product (test code RED BLOOD CELLS = 2263) PRODUCT CODE (test code = K4573K96 933-2) [facility] [id number] 08:36:00Reason for exam:->post-opShould this be performed at the bedside?->Yes [facility] : 1955 Sex: MFINAL REPORT RAD, CHEST, 1 VIEW, NON DEPT INDICATION: post-op COMPARISON: Prior day's exam FINDINGS: Portable frontal view of the chest. IMPRESSION: Support Lines: Two right-sided chest tubes. Central catheter tip overlies the atriocaval junction. Lungs and pleura: Unchanged diffuse inter stitial thickening, representing singly or in combination, interstitial edema and/or pneumonitis. Nosignificant pneumothorax. Heart and mediastinum: Stable contours. Stable surgical changes. Additional findings: None. Signed: Sondra Winkler Verified Date/Time: 08/19/2022 08:36:27 [id number] 04:50:43 Test Item Value Reference Range Interpretation Comments MAGNESIUM (BEAKER) (test code = 2.0 mg/dL 1.6-2.6 627) Steelworker ID - ADMINBASIC METABOLIC [id number] 04:50:42 Test Item Value Reference Range Interpretation Comments SODIUM (BEAKER) 135 meq/L 136-145 L (test code = 381) POTASSIUM 4.2 meq/L 3.5-5.1 (BEAKER) (test code = 379) CHLORIDE (BEAKER) 98 meq/L 98-107 (test code = 382) CO2 (BEAKER) 32 meq/L 22-29 H (test code = 355) BLOOD UREA 7 mg/dL 7-21 NITROGEN (BEAKER) (test code = 354) CREATININE 0.68 mg/dL 0.57-1.25 (BEAKER) (test code = 358) GLUCOSE RANDOM 98 mg/dL 70-105 (BEAKER) (test code = 652) CALCIUM (BEAKER) 8.2 mg/dL 8.4-10.2 L (test code = 697) EGFR (BEAKER) 100 Interpretatio n of eGFR (test code = mL/min/1.73 values Stage De scription 1092) sq m Result G1 Leela l or high >=90 G2 Mildly decreased 60-89 G3a Mildl y to moderately 45-5 9 G3b Moderately to s everely 30-44 G4 Severl y decreased 15-29 G5 Kidney failure <15Reported eGF R is based on the CKD-EPI 2020 equation that d oes not use a race coefficientEsti mated GFR is not as accur ate as Creatinine Shagufta goldsmith in predicting glom erular filtration rate . Estimated GFR is not appl icable for dialysis patien ts Steelworker ID - ADMINCBC W/PLT COUNT & AUTO [id number] 04:32:49 Test Item Value Reference Range Interpretation Comments WHITE BLOOD CELL COUNT (BEAKER) 7.6 K/ L 3.5-10.5 (test code = 775) RED BLOOD CELL COUNT (BEAKER) 2.75 M/ L 4.63-6.08 L (test code = 761) HEMOGLOBIN (BEAKER) (test code = 8.1 GM/DL 13.7-17.5 L 410) HEMATOCRIT (BEAKER) (test code = 25.4 % 40.1-51.0 L 411) MEAN CORPUSCULAR VOLUME (BEAKER) 92 fL 79-92 (test code = 753) MEAN CORPUSCULAR HEMOGLOBIN 29.5 pg 25.7-32.2 (BEAKER) (test code = 751) MEAN CORPUSCULAR HEMOGLOBIN CONC 31.9 GM/DL 32.3-36.5 L (BEAKER) (test code = 752) RED CELL DISTRIBUTION WIDTH 15.7 % 11.6-14.4 H (BEAKER) (test code = 412) PLATELET COUNT (BEAKER) (test 185 K/CU MM 150-450 code = 756) MEAN PLATELET VOLUME (BEAKER) 9.4 fL 9.4-12.4 (test code = 754) NUCLEATED RED BLOOD CELLS 0 /100 WBC 0-0 (BEAKER) (test code = 413) NEUTROPHILS RELATIVE PERCENT 70 % (BEAKER) (test code = 429) LYMPHOCYTES RELATIVE PERCENT 13 % (BEAKER) (test code = 430) MONOCYTES RELATIVE PERCENT 11 % (BEAKER) (test code = 431) EOSINOPHILS RELATIVE PERCENT 5 % (BEAKER) (test code = 432) BASOPHILS RELATIVE PERCENT 0 % (BEAKER) (test code = 437) NEUTROPHILS ABSOLUTE COUNT 5.29 K/ L 1.78-5.38 (BEAKER) (test code = 670) LYMPHOCYTES ABSOLUTE COUNT 0.99 K/ L 1.32-3.57 L (BEAKER) (test code = 414) MONOCYTES ABSOLUTE COUNT (BEAKER) 0.84 K/ L 0.30-0.82 H (test code = 415) EOSINOPHILS ABSOLUTE COUNT 0.38 K/ L 0.04-0.54 (BEAKER) (test code = 416) BASOPHILS ABSOLUTE COUNT (BEAKER) 0.02 K/ L 0.01-0.08 (test code = 417) IMMATURE GRANULOCYTES-RELATIVE 0.40 % 0.00-1.00 PERCENT (BEAKER) (test code = 2801) RAD, CHEST, 1 VIEW, NON [id number] 07:07:00Reason for exam:->post-opShould this be performed at the bedside?->Yes [facility] : 1955 Sex: MFINAL REPORT RAD, CHEST, 1 VIEW, NON DEPT INDICATION: post-op COMPARISON: Prior day's exam FINDINGS: Portable frontal view of the chest. IMPRESSION: Support Lines: Two right-sided chest tubes. Central catheter tip overlies the atriocaval junction. Lungs and pleura: Unchanged diffuse inter stitial thickening, representing singly or in combination, interstitial edema and/or pneumonitis. Nosignificant pneumothorax. Heart and mediastinum: Stable contours. Stable surgical changes. Additional findings: None. Signed: Sondra Winkler Verified Date/Time: 08/18/2022 07:07:14 [id number] 05:07:15 Test Item Value Reference Range Interpretation Comments MAGNESIUM (BEAKER) (test code = 2.1 mg/dL 1.6-2.6 627) Steelworker ID - MARIOBASIC METABOLIC [id number] 05:07:14 Test Item Value Reference Range Interpretation Comments SODIUM (BEAKER) 134 meq/L 136-145 L (test code = 381) POTASSIUM 4.2 meq/L 3.5-5.1 (BEAKER) (test code = 379) CHLORIDE (BEAKER) 100 meq/L 98-107 (test code = 382) CO2 (BEAKER) 31 meq/L 22-29 H (test code = 355) BLOOD UREA 6 mg/dL 7-21 L NITROGEN (BEAKER) (test code = 354) CREATININE 0.71 mg/dL 0.57-1.25 (BEAKER) (test code = 358) GLUCOSE RANDOM 118 mg/dL 70-105 H (BEAKER) (test code = 652) CALCIUM (BEAKER) 8.1 mg/dL 8.4-10.2 L (test code = 697) EGFR (BEAKER) 99 Interpretatio n of eGFR (test code = mL/min/1.73 values Stage De scription 1092) sq m Result G1 Leela l or high >=90 G2 Mildly decreased 60-89 G3a Mildl y to moderately 45-5 9 G3b Moderately to s everely 30-44 G4 Severl y decreased 15-29 G5 Kidney failure <15Reported eGF R is based on the CKD-EPI 2020 equation that d oes not use a race coefficientEsti mated GFR is not as accur ate as Creatinine Shagufta rupal in predicting glom erular filtration rate . Estimated GFR is not appl icable for dialysis patien ts Steelworker ID - MARIOCBC W/PLT COUNT & AUTO [id number] 04:28:33 Test Item Value Reference Range Interpretation Comments WHITE BLOOD CELL COUNT (BEAKER) 9.4 K/ L 3.5-10.5 (test code = 775) RED BLOOD CELL COUNT (BEAKER) 2.34 M/ L 4.63-6.08 L (test code = 761) HEMOGLOBIN (BEAKER) (test code = 6.9 GM/DL 13.7-17.5 L 410) HEMATOCRIT (BEAKER) (test code = 21.6 % 40.1-51.0 L 411) MEAN CORPUSCULAR VOLUME (BEAKER) 92 fL 79-92 (test code = 753) MEAN CORPUSCULAR HEMOGLOBIN 29.5 pg 25.7-32.2 (BEAKER) (test code = 751) MEAN CORPUSCULAR HEMOGLOBIN CONC 31.9 GM/DL 32.3-36.5 L (BEAKER) (test code = 752) RED CELL DISTRIBUTION WIDTH 13.2 % 11.6-14.4 (BEAKER) (test code = 412) PLATELET COUNT (BEAKER) (test 148 K/CU MM 150-450 L code = 756) MEAN PLATELET VOLUME (BEAKER) 9.5 fL 9.4-12.4 (test code = 754) NUCLEATED RED BLOOD CELLS 0 /100 WBC 0-0 (BEAKER) (test code = 413) NEUTROPHILS RELATIVE PERCENT 77 % (BEAKER) (test code = 429) LYMPHOCYTES RELATIVE PERCENT 10 % (BEAKER) (test code = 430) MONOCYTES RELATIVE PERCENT 9 % (BEAKER) (test code = 431) EOSINOPHILS RELATIVE PERCENT 3 % (BEAKER) (test code = 432) BASOPHILS RELATIVE PERCENT 0 % (BEAKER) (test code = 437) NEUTROPHILS ABSOLUTE COUNT 7.23 K/ L 1.78-5.38 H (BEAKER) (test code = 670) LYMPHOCYTES ABSOLUTE COUNT 0.98 K/ L 1.32-3.57 L (BEAKER) (test code = 414) MONOCYTES ABSOLUTE COUNT (BEAKER) 0.88 K/ L 0.30-0.82 H (test code = 415) EOSINOPHILS ABSOLUTE COUNT 0.28 K/ L 0.04-0.54 (BEAKER) (test code = 416) BASOPHILS ABSOLUTE COUNT (BEAKER) 0.02 K/ L 0.01-0.08 (test code = 417) IMMATURE GRANULOCYTES-RELATIVE 0.40 % 0.00-1.00 PERCENT (BEAKER) (test code = 2801) POC-Glucose [id number] 17:50:35 Test Item Value Reference Range Interpretation Comments POC-Glucose Meter (test 145 mg/dL 70-110 H : TE STED AT [facility] code = 1538) [address] [facility], [address]: Steelworker/Techni garth ID = [id number] for Mary Roger Lab Interpretation (test Abnormal code = 89079-7) [facility] [id number] 17:50:35 Test Item Value Reference Range Interpretation Comments POC-GLUCOSE METER 145 mg/dL 70-110 H : [facility] (test code = [facility], 1538) [address]: Steelworker/Techni garth ID = [id number] for Mary Banks POCT-GLUCOSE [id number] 11:54:06 Test Item Value Reference Range Interpretation Comments POC-GLUCOSE METER 91 mg/dL 70-110 : TESTED A T [facility] 6720 (BEAKER) (test code = [facility], 1538) [address]: Steelworker/Techni garth ID = [id number] for Mary Roger POCT-GLUCOSE [id number] 08:54:56 Test Item Value Reference Range Interpretation Comments POC-GLUCOSE METER 103 mg/dL 70-110 : Notified RN/MD: TESTED (BEAKER) (test code AT [facility] [address] = 1538) [place], [address]: Steelworker/Techni garth ID = [id number] for My jane ([facility] Traveler), Sandra chavez ([employer])2022-08-17 07:19:52 Test Item Value Reference Range Interpretation Comments NEUTROPHILS - REL 81 % (CELLAVISION)(BEAKER) (test code = 2816) LYMPHOCYTES - REL 8 % (CELLAVISION)(BEAKER) (test code = 2817) MONOCYTES - REL 3 % (CELLAVISION)(BEAKER) (test code = 2818) EOSINOPHILS - REL 4 % (CELLAVISION)(BEAKER) (test code = 2819) BANDS - REL (CELLAVISION)(BEAKER) 4 % 0-10 (test code = 2826) NEUTROPHILS - ABS 6.89 K/ul 1.78-5.38 H (CELLAVISION)(BEAKER) (test code = 2830) LYMPHOCYTES - ABS 0.68 K/ul 1.32-3.57 L (CELLAVISION)(BEAKER) (test code = 2831) MONOCYTES - ABS 0.26 K/uL 0.30-0.82 L (CELLAVISION)(BEAKER) (test code = 2832) EOSINOPHILS - ABS 0.34 K/uL 0.04-0.54 (CELLAVISION)(BEAKER) (test code = 2834) BANDS - ABS (CELLAVISION)(BEAKER) 0.34 K/uL 0.00-0.80 (test code = 2840) TOTAL COUNTED (BEAKER) (test code = 100 1351) WBC MORPHOLOGY (BEAKER) (test code Normal = 487) PLT MORPHOLOGY (BEAKER) (test code Normal = 486) ANISOCYTOSIS (BEAKER) (test code = 1+ few 961) MICROCYTES (BEAKER) (test code = 1+ few 965) ARTIFACT (CELLAVISION)(BEAKER) Present (test code = 3432) PLATELET CONCENTRATION Adequate (CELLAVISION)(BEAKER) (test code = 3438) Steelworker ID - Katerina Dillard comments: Slide comments:CBC W/PLT COUNT & AUTO [id number] 07:19:51 Test Item Value Reference Range Interpretation Comments WHITE BLOOD CELL COUNT (BEAKER) 8.5 K/ L 3.5-10.5 (test code = 775) RED BLOOD CELL COUNT (BEAKER) 2.46 M/ L 4.63-6.08 L (test code = 761) HEMOGLOBIN (BEAKER) (test code = 7.4 GM/DL 13.7-17.5 L 410) HEMATOCRIT (BEAKER) (test code = 23.1 % 40.1-51.0 L 411) MEAN CORPUSCULAR VOLUME (BEAKER) 94 fL 79-92 H (test code = 753) MEAN CORPUSCULAR HEMOGLOBIN 30.1 pg 25.7-32.2 (BEAKER) (test code = 751) MEAN CORPUSCULAR HEMOGLOBIN CONC 32.0 GM/DL 32.3-36.5 L (BEAKER) (test code = 752) RED CELL DISTRIBUTION WIDTH 13.2 % 11.6-14.4 (BEAKER) (test code = 412) PLATELET COUNT (BEAKER) (test 152 K/CU MM 150-450 code = 756) MEAN PLATELET VOLUME (BEAKER) 9.1 fL 9.4-12.4 L (test code = 754) NUCLEATED RED BLOOD CELLS 0 /100 WBC 0-0 (BEAKER) (test code = 413) RAD, CHEST, 1 VIEW, NON [id number] 06:51:00Reason for exam:->post-opShould this be performed at the bedside?->Yes [facility] : 1955 Sex: MFINAL REPORT RAD, CHEST, 1 VIEW, NON DEPT INDICATION: post-op COMPARISON: Prior day's exam FINDINGS: Portable frontal view of the chest. IMPRESSION: Support Lines: Two right-sided chest tubes. Central catheter tip overlies the atriocaval junction. Lungs and pleura: Unchanged diffuse inter stitial thickening, representing singly or in combination, interstitial edema and/or pneumonitis. Nosignificant pneumothorax. Heart and mediastinum: Stable contours. Stable surgical changes. Additional findings: None. Signed: Sondra Winklerepbryce Verified Date/Time: 08/17/2022 06:51:58 BASIC METABOLIC PANEL 2022-08-17 04:24:19 Test Item Value Reference Range Interpretation Comments SODIUM (BEAKER) 137 meq/L 136-145 (test code = 381) POTASSIUM 3.8 meq/L 3.5-5.1 (BEAKER) (test code = 379) CHLORIDE (BEAKER) 104 meq/L 98-107 (test code = 382) CO2 (BEAKER) 29 meq/L 22-29 (test code = 355) BLOOD UREA 7 mg/dL 7-21 NITROGEN (BEAKER) (test code = 354) CREATININE 0.75 mg/dL 0.57-1.25 (BEAKER) (test code = 358) GLUCOSE RANDOM 99 mg/dL 70-105 (BEAKER) (test code = 652) CALCIUM (BEAKER) 8.1 mg/dL 8.4-10.2 L (test code = 697) EGFR (BEAKER) 98 Interpretatio n of eGFR (test code = mL/min/1.73 values Stage De scription 1092) sq m Result G1 Leela l or high >=90 G2 Mildly decreased 60-89 G3a Mildl y to moderately 45-5 9 G3b Moderately to s everely 30-44 G4 Severl y decreased 15-29 G5 Kidney failure <15Reported eGF R is based on the CKD-EPI 2020 equation that d oes not use a race coefficientEsti mated GFR is not as accur ate as Creatinine Shagufta goldsmith in predicting glom erular filtration rate . Estimated GFR is not appl icable for dialysis patien ts Steelworker ID - [id number] 04:24:19 Test Item Value Reference Range Interpretation Comments MAGNESIUM (ROXI) (test code = 2.0 mg/dL 1.6-2.6 627) Steelworker ID - marioPOCT-GLUCOSE [id number] 00:47:34 Test Item Value Reference Range Interpretation Comments POC-GLUCOSE METER 110 mg/dL 70-110 : TESTED A T [facility] 67[address] ([facility]) (test code = [facility], 1538) [address]: Steelworker/Techni garth ID = [id number] for TRISHA CHILEL MS POCT-GLUCOSE [id number] 17:44:24 Test Item Value Reference Range Interpretation Comments POC-GLUCOSE METER 132 mg/dL 70-110 H : TESTED A T [facility] 6720 ([facility]) (test code [facility], = 1538) [address]: Steelworker/Techni garth ID = [id number] for José Antonio Ledesma POCT-GLUCOSE [id number] 11:34:39 Test Item Value Reference Range Interpretation Comments POC-GLUCOSE METER 112 mg/dL 70-110 H : Notified RN/MD: ([facility]) (test code = TESTED AT [facility] 67[address] 1538) [facility], [address]: Steelworker/Techni garth ID = [id number] for Sondra Person RAD, CHEST, 1 VIEW, NON [id number] 06:55:00Reason for exam:->post-opShould this be performed at the bedside?->Yes [facility] : 1955 Sex: MFINAL REPORT RAD, CHEST, 1 VIEW, NON DEPT INDICATION: post-op COMPARISON: Prior day's exam FINDINGS: Portable frontal view of the chest. IMPRESSION: Support Lines: ET tube tip is 5 cm superior to the kourtney. Two right-sided chest tubes. Central catheter tip overlies the atriocaval junction. Lungs and pleura: Unchanged diffuse interstitial thickening, representing singly or in combination, interstitial edema and/or pneumonitis. No significant pneumothorax. Heart and mediastinum: Stable contours. Stable surgical changes. Additional findings: None. Signed: Sondra Winklerepbryce Verified Date/Time: 08/16/2022 06:55:12 BASIC METABOLIC [id number] 04:17:17 Test Item Value Reference Range Interpretation Comments SODIUM (BEAKER) 138 meq/L 136-145 (test code = 381) POTASSIUM 3.8 meq/L 3.5-5.1 (BEAKER) (test code = 379) CHLORIDE (BEAKER) 106 meq/L 98-107 (test code = 382) CO2 (BEAKER) 26 meq/L 22-29 (test code = 355) BLOOD UREA 6 mg/dL 7-21 L NITROGEN (BEAKER) (test code = 354) CREATININE 0.69 mg/dL 0.57-1.25 (BEAKER) (test code = 358) GLUCOSE RANDOM 163 mg/dL 70-105 H (BEAKER) (test code = 652) CALCIUM (BEAKER) 8.0 mg/dL 8.4-10.2 L (test code = 697) EGFR (BEAKER) 100 Interpretatio n of eGFR (test code = mL/min/1.73 values Stage De scription 1092) sq m Result G1 Leela l or high >=90 G2 Mildly decreased 60-89 G3a Mildl y to moderately 45-5 9 G3b Moderately to s everely 30-44 G4 Severl y decreased 15-29 G5 Kidney failure <15Reported eGF R is based on the CKD-EPI 2020 equation that d oes not use a race coefficientEsti mated GFR is not as accur ate as Creatinine Shagufta goldsmith in predicting glom erular filtration rate . Estimated GFR is not appl icable for dialysis patien ts Steelworker ID - OLGA [id number] 04:17:17 Test Item Value Reference Range Interpretation Comments MAGNESIUM (BEAKER) (test code = 1.7 mg/dL 1.6-2.6 627) Steelworker LEVON ARMIJOALCIUM, [id number] 04:01:16 Test Item Value Reference Range Interpretation Comments CALCIUM IONIZED (BEAKER) (test 1.00 mmol/L 1.12-1.27 L code = 698) PH, BLOOD (BEAKER) (test code = 7.37 1810) Blood gas, [id number] 04:01:15 Test Item Value Reference Range Interpretation Comments pH, Arterial (test code 7.37 7.35-7.45 = 2744-1) pCO2, Arterial (test 47 See_Comment H [Autom ated message] code = 2019-8) The system [employer] generated this result transmit yisel reference range : 35 - 45 mm Hg. The reference range was not used to interpret this result as normal/abnormal . pO2, Arterial (test 196 See_Comment H [Automa yisel message] code = 2703-7) The system [employer] generated this result transmit yisel reference range : 80 - 90 mm Hg. The reference range was not used to interpret this result as normal/abnormal . O2 Sat, Arterial (test 99.3 % 96.0-97.0 H code = 2708-6) HCO3, Arterial (test 26 mmol/L 21-29 code = 1960-4) Base Excess, Arterial 0.9 mmol/L -2.0-3.0 (test code = 1925-7) Patient Temperature 37.0 (test code = 8310-5) FIO2 (test code = 1819) 50 Lab Interpretation Abnormal (test code = 33228-4) [facility], [id number] 04:01:15 Test Item Value Reference Range Interpretation Comments PH ARTERIAL (BEAKER) (test code = 7.37 7.35-7.45 383) PCO2 ARTERIAL (BEAKER) (test code 47 mm Hg 35-45 H = 384) PO2 ARTERIAL (BEAKER) (test code = 196 mm Hg 80-90 H 385) O2 SATURATION ARTERIAL (BEAKER) 99.3 % 96.0-97.0 H (test code = 386) HCO3 ARTERIAL (BEAKER) (test code 26 mmol/L 21-29 = 388) BASE EXCESS ARTERIAL (BEAKER) 0.9 mmol/L -2.0-3.0 (test code = 387) PATIENT TEMPERATURE (BEAKER) (test 37.0 code = 1818) FIO2 (BEAKER) (test code = 1819) 50.0 CBC W/PLT COUNT & AUTO [id number] 03:51:26 Test Item Value Reference Range Interpretation Comments WHITE BLOOD CELL COUNT (BEAKER) 8.9 K/ L 3.5-10.5 (test code = 775) RED BLOOD CELL COUNT (BEAKER) 2.79 M/ L 4.63-6.08 L (test code = 761) HEMOGLOBIN (BEAKER) (test code = 8.4 GM/DL 13.7-17.5 L 410) HEMATOCRIT (BEAKER) (test code = 25.9 % 40.1-51.0 L 411) MEAN CORPUSCULAR VOLUME (BEAKER) 93 fL 79-92 H (test code = 753) MEAN CORPUSCULAR HEMOGLOBIN 30.1 pg 25.7-32.2 (BEAKER) (test code = 751) MEAN CORPUSCULAR HEMOGLOBIN CONC 32.4 GM/DL 32.3-36.5 (BEAKER) (test code = 752) RED CELL DISTRIBUTION WIDTH 13.0 % 11.6-14.4 (BEAKER) (test code = 412) PLATELET COUNT (BEAKER) (test 201 K/CU MM 150-450 code = 756) MEAN PLATELET VOLUME (BEAKER) 9.0 fL 9.4-12.4 L (test code = 754) NUCLEATED RED BLOOD CELLS 0 /100 WBC 0-0 (BEAKER) (test code = 413) NEUTROPHILS RELATIVE PERCENT 77 % (BEAKER) (test code = 429) LYMPHOCYTES RELATIVE PERCENT 13 % (BEAKER) (test code = 430) MONOCYTES RELATIVE PERCENT 10 % (BEAKER) (test code = 431) EOSINOPHILS RELATIVE PERCENT 0 % (BEAKER) (test code = 432) BASOPHILS RELATIVE PERCENT 0 % (BEAKER) (test code = 437) NEUTROPHILS ABSOLUTE COUNT 6.81 K/ L 1.78-5.38 H (BEAKER) (test code = 670) LYMPHOCYTES ABSOLUTE COUNT 1.13 K/ L 1.32-3.57 L (BEAKER) (test code = 414) MONOCYTES ABSOLUTE COUNT (BEAKER) 0.91 K/ L 0.30-0.82 H (test code = 415) EOSINOPHILS ABSOLUTE COUNT 0.01 K/ L 0.04-0.54 L (BEAKER) (test code = 416) BASOPHILS ABSOLUTE COUNT (BEAKER) 0.01 K/ L 0.01-0.08 (test code = 417) IMMATURE GRANULOCYTES-RELATIVE 0.20 % 0.00-1.00 PERCENT (BEAKER) (test code = 2801) HEMOGLOBIN AND [id number] 00:41:22 Test Item Value Reference Range Interpretation Comments HEMOGLOBIN (BEAKER) (test code = 8.3 GM/DL 13.7-17.5 L 410) HEMATOCRIT (BEAKER) (test code = 25.3 % 40.1-51.0 L 411) Steelworker ID - 6000POCT-GLUCOSE [id number] 00:39:56 Test Item Value Reference Range Interpretation Comments POC-GLUCOSE METER 175 mg/dL 70-110 H : TESTED A T [facility] 6720 (BEAKER) (test code = [facility] [employer] [facility], 153) [address]: Steelworker/Techni garth ID = [id number] for [place] MS, SENORA [id number] 17:26:55 Test Item Value Reference Range Interpretation Comments MAGNESIUM (BEAKER) 1.8 mg/dL 1.6-2.6 Specimen slightly (test code = 627) hemolyzed Steelworker ID - [id number] 17:26:55 Test Item Value Reference Range Interpretation Comments PHOSPHORUS (BEAKER) 3.3 mg/dL 2.3-4.7 Specimen slightly (test code = 604) hemolyzed Steelworker ID - BSPOCT-GLUCOSE [id number] 16:58:26 Test Item Value Reference Range Interpretation Comments POC-GLUCOSE METER 168 mg/dL 70-110 H : TESTED A T [facility] 6720 (BEAKER) (test code = [facility] [employer] [facility], 153) [address]: Steelworker/Techni garth ID = [id number] for IB ARRA, ELSAMAR RAD, CHEST, 1 VIEW, NON [id number] 16:27:00Reason for exam:->post bilobectomyShould this be performed at the bedside?->Yes [facility] : 1955 Sex: MFINAL REPORT Chest, 1 view, 08/15/2022 3:37 PM. History: Post lobectomy. Comparison: 07/13/2022. Discussion: The cardiac silhouette is stable. Bilateral pleuroparenchymal opacities are present, decreased opacity of the right upper lobe. There is no pneumothorax. Minimal subcutaneous emphysema is present in the right chest wall. 2 right-sided chest tubes are present terminating near the apex. ET tube is present terminating 3.5 cm above the kourtney. Right IJ central catheter terminates near the cavoatrial junction. The soft tissues and osseous structures are intact. IMPRESSION: Postoperativechanges with supporting lines and tubes in adequate position. Decreased right upper lobe opacity. Signed: Saul Xavier [facility] SERVICESeport Verified Date/Time: 08/15/2022 16:27:10 Reading Location: [facility] BASI METABOLIC [id number] 16:04:40 Test Item Value Reference Range Interpretation Comments SODIUM (BEAKER) 134 meq/L 136-145 L (test code = 381) POTASSIUM 4.4 meq/L 3.5-5.1 (BEAKER) (test code = 379) CHLORIDE (BEAKER) 104 meq/L 98-107 (test code = 382) CO2 (BEAKER) 23 meq/L 22-29 (test code = 355) BLOOD UREA 8 mg/dL 7-21 NITROGEN (BEAKER) (test code = 354) CREATININE 0.73 mg/dL 0.57-1.25 (BEAKER) (test code = 358) GLUCOSE RANDOM 162 mg/dL 70-105 H (BEAKER) (test code = 652) CALCIUM (BEAKER) 8.8 mg/dL 8.4-10.2 (test code = 697) EGFR (BEAKER) 98 Interpretatio n of eGFR (test code = mL/min/1.73 values Stage De scription 1092) sq m Result G1 Leela l or high >=90 G2 Mildly decreased 60-89 G3a Mildl y to moderately 45-5 9 G3b Moderately to s everely 30-44 G4 Severl y decreased 15-29 G5 Kidney failure <15Reported eGF R is based on the CKD-EPI 2020 equation that d oes not use a race coefficientEsti mated GFR is not as accur ate as Creatinine Shagufta rupal in predicting glom erular filtration rate . Estimated GFR is not appl icable for dialysis patien ts [employer] ID - [id number] 15:55:57 Test Item Value Reference Range Interpretation Comments PROTIME (BEAKER) (test code = 15.2 seconds 11.9-14.2 H 759) INR (BEAKER) (test code = 370) 1.28 <=5.90 PARTIAL THROMBOPLASTIN TIME 26.6 seconds 22.5-36.0 (BEAKER) (test code = 760) RECOMMENDED COUMADIN/WARFARIN INR THERAPY RANGESSTANDARD DOSE: 2.0 - 3.0 Includes: PROPHYLAXIS for venous thrombosis, systemic embolization; TREATMENT for venous thrombosis and/or pulmonary embolus.HIGH RISK: Target INR is 2.5-3.5 for patients with mechanical heart valves.CALCIUM, [id number] 15:39:52 Test Item Value Reference Range Interpretation Comments CALCIUM IONIZED (BEAKER) (test 1.13 mmol/L 1.12-1.27 code = 698) PH, BLOOD (BEAKER) (test code = 7.40 1810) CBC (HEMOGRAM ONLY)2022-08-15 15:37:57 Test Item Value Reference Range Interpretation Comments WHITE BLOOD CELL COUNT (BEAKER) 13.6 K/ L 3.5-10.5 H (test code = 775) RED BLOOD CELL COUNT (BEAKER) 3.06 M/ L 4.63-6.08 L (test code = 761) HEMOGLOBIN (BEAKER) (test code = 9.3 GM/DL 13.7-17.5 L 410) HEMATOCRIT (BEAKER) (test code = 28.1 % 40.1-51.0 L 411) MEAN CORPUSCULAR VOLUME (BEAKER) 92 fL 79-92 (test code = 753) MEAN CORPUSCULAR HEMOGLOBIN 30.4 pg 25.7-32.2 (BEAKER) (test code = 751) MEAN CORPUSCULAR HEMOGLOBIN CONC 33.1 GM/DL 32.3-36.5 (BEAKER) (test code = 752) RED CELL DISTRIBUTION WIDTH 12.8 % 11.6-14.4 (BEAKER) (test code = 412) PLATELET COUNT (BEAKER) (test 224 K/CU MM 150-450 code = 756) MEAN PLATELET VOLUME (BEAKER) 9.0 fL 9.4-12.4 L (test code = 754) NUCLEATED RED BLOOD CELLS 0 /100 WBC 0-0 (BEAKER) (test code = 413) Prepare [id number] 15:14:00 Test Item Value Reference Range Interpretation Comments CROSSMATCH (test code = COMPATIBLE 2264) Unit ABO (test code = A Pos [id number]) UNIT NUMBER (test code = [id number] 934-0) Status (test code = RETURNED FROM ISSUE [id number]) Blood Bank Product (test RED BLOOD CELLS code = 2263) PRODUCT CODE (test code = P3249T40 933-2) [facility] [id number] 15:14:00 Test Item Value Reference Range Interpretation Comments Unit ABO (test code = A Pos 7134897) UNIT NUMBER (test code = [id number] 934-0) Status (test code = RETURNED FROM ISSUE [id number]) Blood Bank Product (test FFP code = 2263) PRODUCT CODE (test code = E6397V29 933-2) [facility] [id number] 14:22:14 Test Item Value Reference Range Interpretation Comments Sodium (test code = 2951-2) 134 meq/L 136-145 L Lab Interpretation (test code = Abnormal 10739-5) [facility] [id number] 14:22:14 Test Item Value Reference Range Interpretation Comments SODIUM (BEAKER) (test code = 381) 134 meq/L 136-145 L HGB/HCT (H&H)-Stat [id number] 14:22:08 Test Item Value Reference Range Interpretation Comments Hemoglobin (test code = 9.3 See_Comment L [Au tomated message] 718-7) The system [employer] generated this result transmitted ref erence range: 13.0 - 1 6.8 GM/DL. The refe rence range was not u sed to interpret this result as normal/abnor mal. Hematocrit (test code = 27.0 % 40.0-50.0 L 4544-3) Lab Interpretation (test Abnormal code = 17351-7) [facility] - STAT [id number] 14:22:08 Test Item Value Reference Range Interpretation Comments HEMOGLOBIN (BEAKER) (test code = 9.3 GM/DL 13.0-16.8 L 410) HEMATOCRIT (BEAKER) (test code = 27.0 % 40.0-50.0 L 411) BLOOD GAS, [id number] 14:22:07 Test Item Value Reference Range Interpretation Comments PH ARTERIAL (BEAKER) (test code = 7.39 7.35-7.45 383) PCO2 ARTERIAL (BEAKER) (test code 41 mm Hg 35-45 = 384) PO2 ARTERIAL (BEAKER) (test code 446 mm Hg 80-90 H = 385) O2 SATURATION ARTERIAL (BEAKER) 99.8 % 96.0-97.0 H (test code = 386) HCO3 ARTERIAL (BEAKER) (test code 24 mmol/L 21-29 = 388) BASE EXCESS ARTERIAL (BEAKER) -1.3 mmol/L -2.0-3.0 (test code = 387) PATIENT TEMPERATURE (BEAKER) 35.2 (test code = 1818) FIO2 (BEAKER) (test code = 1819) 90.0 CALCIUM, [id number] 14:21:15 Test Item Value Reference Range Interpretation Comments CALCIUM IONIZED (BEAKER) (test 1.22 mmol/L 1.12-1.27 code = 698) PH, BLOOD (BEAKER) (test code = 7.36 1810) Potassium-Stat [id number] 14:20:58 Test Item Value Reference Range Interpretation Comments Potassium (test code = 2823-3) 4.2 meq/L 3.6-5.5 Lab Interpretation (test code = Normal 41402-7) [facility] [id number] 14:20:58 Test Item Value Reference Range Interpretation Comments POTASSIUM (BEAKER) (test code = 4.2 meq/L 3.6-5.5 379) Glucose-Stat [id number] 14:20:53 Test Item Value Reference Range Interpretation Comments Glucose (test code = 2345-7) 174 mg/dL 70-110 H Lab Interpretation (test code = Abnormal 94670-2) [facility] [id number] 14:20:53 Test Item Value Reference Range Interpretation Comments GLUCOSE RANDOM (BEAKER) (test code 174 mg/dL 70-110 H = 652) Lactic Acid, [id number] 13:38:20 Test Item Value Reference Range Interpretation Comments Lactate, Art (test code = 1.6 mmol/L 0.5-2.2 2874) DONAVON (test code = DONAVON) Steelworker ID - DB Lab Interpretation (test Normal code = 78622-1) [facility]CT[facility] ACID, [id number] 13:38:20 Test Item Value Reference Range Interpretation Comments LACTATE BLOOD ARTERIAL (2) 1.6 mmol/L 0.5-2.2 (BEAKER) (test code = 2874) Steelworker ID - DBSODIUM NA-STAT [id number] 13:29:13 Test Item Value Reference Range Interpretation Comments SODIUM (BEAKER) (test code = 381) 133 meq/L 136-145 L BLOOD GAS, [id number] 13:29:07 Test Item Value Reference Range Interpretation Comments PH ARTERIAL (BEAKER) (test code = 7.37 7.35-7.45 383) PCO2 ARTERIAL (BEAKER) (test code 42 mm Hg 35-45 = 384) PO2 ARTERIAL (BEAKER) (test code 284 mm Hg 80-90 H = 385) O2 SATURATION ARTERIAL (BEAKER) 99.6 % 96.0-97.0 H (test code = 386) HCO3 ARTERIAL (BEAKER) (test code 24 mmol/L - = 388) BASE EXCESS ARTERIAL (BEAKER) -1.5 mmol/L -2.0-3.0 (test code = 387) PATIENT TEMPERATURE (BEAKER) 37.0 (test code = 1818) HGB/HCT (H&H) - STAT [id number] 13:29:07 Test Item Value Reference Range Interpretation Comments HEMOGLOBIN (BEAKER) (test code = 9.6 GM/DL 13.0-16.8 L 410) HEMATOCRIT (BEAKER) (test code = 28.0 % 40.0-50.0 L 411) CALCIUM, [id number] 13:28:32 Test Item Value Reference Range Interpretation Comments CALCIUM IONIZED (BEAKER) (test 1.18 mmol/L 1.12-1.27 code = 698) PH, BLOOD (BEAKER) (test code = 7.37 1810) POTASSIUM-STAT [id number] 13:23:59 Test Item Value Reference Range Interpretation Comments POTASSIUM (BEAKER) (test code = 4.2 meq/L 3.6-5.5 379) GLUCOSE-STAT [id number] 13:23:53 Test Item Value Reference Range Interpretation Comments GLUCOSE RANDOM (BEAKER) (test code 185 mg/dL 70-110 H = 652) BLOOD GAS, [id number] 12:10:32 Test Item Value Reference Range Interpretation Comments PH ARTERIAL (BEAKER) (test code = 7.37 7.35-7.45 383) PCO2 ARTERIAL (BEAKER) (test code 43 mm Hg 35-45 = 384) PO2 ARTERIAL (BEAKER) (test code 344 mm Hg 80-90 H = 385) O2 SATURATION ARTERIAL (BEAKER) 99.7 % 96.0-97.0 H (test code = 386) HCO3 ARTERIAL (BEAKER) (test code 24 mmol/L -29 = 388) BASE EXCESS ARTERIAL (BEAKER) -1.1 mmol/L -2.0-3.0 (test code = 387) PATIENT TEMPERATURE (BEAKER) 37.0 (test code = 1818) FIO2 (BEAKER) (test code = 1819) 100.0 SODIUM NA-STAT [id number] 12:10:32 Test Item Value Reference Range Interpretation Comments SODIUM (BEAKER) (test code = 381) 133 meq/L 136-145 L HGB/HCT (H&H) - STAT [id number] 12:10:32 Test Item Value Reference Range Interpretation Comments HEMOGLOBIN (BEAKER) (test code = 10.7 GM/DL 13.0-16.8 L 410) HEMATOCRIT (BEAKER) (test code = 31.0 % 40.0-50.0 L 411) CALCIUM, [id number] 12:10:31 Test Item Value Reference Range Interpretation Comments CALCIUM IONIZED (BEAKER) (test 1.12 mmol/L 1.12-1.27 code = 698) PH, BLOOD (BEAKER) (test code = 7.37 1810) GLUCOSE-STAT [id number] 12:10:10 Test Item Value Reference Range Interpretation Comments GLUCOSE RANDOM (BEAKER) (test code 172 mg/dL 70-110 H = 652) POTASSIUM-STAT [id number] 12:10:10 Test Item Value Reference Range Interpretation Comments POTASSIUM (BEAKER) (test code = 4.5 meq/L 3.6-5.5 379) SODIUM NA-STAT [id number] 11:04:37 Test Item Value Reference Range Interpretation Comments SODIUM (BEAKER) (test code = 381) 133 meq/L 136-145 L HGB/HCT (H&H) - STAT [id number] 11:04:37 Test Item Value Reference Range Interpretation Comments HEMOGLOBIN (BEAKER) (test code = 10.9 GM/DL 13.0-16.8 L 410) HEMATOCRIT (BEAKER) (test code = 32.0 % 40.0-50.0 L 411) CALCIUM, [id number] 11:04:36 Test Item Value Reference Range Interpretation Comments CALCIUM IONIZED (BEAKER) (test 1.08 mmol/L 1.12-1.27 L code = 698) PH, BLOOD (BEAKER) (test code = 7.31 1810) BLOOD GAS, [id number] 11:04:36 Test Item Value Reference Range Interpretation Comments PH ARTERIAL (BEAKER) (test code = 7.31 7.35-7.45 L 383) PCO2 ARTERIAL (BEAKER) (test code 54 mm Hg 35-45 H = 384) PO2 ARTERIAL (BEAKER) (test code 137 mm Hg 80-90 H = 385) O2 SATURATION ARTERIAL (BEAKER) 98.5 % 96.0-97.0 H (test code = 386) HCO3 ARTERIAL (BEAKER) (test code 27 mmol/L 21-29 = 388) BASE EXCESS ARTERIAL (BEAKER) -0.2 mmol/L -2.0-3.0 (test code = 387) PATIENT TEMPERATURE (BEAKER) 37.0 (test code = 1818) FIO2 (BEAKER) (test code = 1819) 100.0 GLUCOSE-STAT [id number] 11:04:09 Test Item Value Reference Range Interpretation Comments GLUCOSE RANDOM (BEAKER) (test code 167 mg/dL 70-110 H = 652) POTASSIUM-STAT [id number] 11:04:09 Test Item Value Reference Range Interpretation Comments POTASSIUM (BEAKER) (test code = 4.6 meq/L 3.6-5.5 379) CALCIUM, [id number] 10:07:26 Test Item Value Reference Range Interpretation Comments CALCIUM IONIZED (BEAKER) (test 1.11 mmol/L 1.12-1.27 L code = 698) PH, BLOOD (BEAKER) (test code = 7.32 1810) BLOOD GAS, [id number] 10:07:25 Test Item Value Reference Range Interpretation Comments PH ARTERIAL (BEAKER) (test code = 7.36 7.35-7.45 383) PCO2 ARTERIAL (BEAKER) (test code 43 mm Hg 35-45 = 384) PO2 ARTERIAL (BEAKER) (test code 154 mm Hg 80-90 H = 385) O2 SATURATION ARTERIAL (BEAKER) 99.0 % 96.0-97.0 H (test code = 386) HCO3 ARTERIAL (BEAKER) (test code 25 mmol/L 21-29 = 388) BASE EXCESS ARTERIAL (BEAKER) -1.8 mmol/L -2.0-3.0 (test code = 387) PATIENT TEMPERATURE (BEAKER) 34.2 (test code = 1818) FIO2 (BEAKER) (test code = 1819) 90.0 HGB/HCT (H&H) - STAT [id number] 10:07:19 Test Item Value Reference Range Interpretation Comments HEMOGLOBIN (BEAKER) (test code = 12.1 GM/DL 13.0-16.8 L 410) HEMATOCRIT (BEAKER) (test code = 36.0 % 40.0-50.0 L 411) SODIUM NA-STAT [id number] 10:06:27 Test Item Value Reference Range Interpretation Comments SODIUM (BEAKER) (test code = 381) 136 meq/L 136-145 POTASSIUM-STAT [id number] 10:06:27 Test Item Value Reference Range Interpretation Comments POTASSIUM (BEAKER) (test code = 3.9 meq/L 3.6-5.5 379) GLUCOSE-STAT [id number] 10:06:26 Test Item Value Reference Range Interpretation Comments GLUCOSE RANDOM (BEAKER) (test code 152 mg/dL 70-110 H = 652) Prepare [id number] 09:03:00 Test Item Value Reference Range Interpretation Comments CROSSMATCH (test code = 2264) COMPATIBLE Unit ABO (test code = A Pos 6294957) UNIT NUMBER (test code = [id number] 934-0) Status (test code = 2938974) ISSUED Blood Bank Product (test code RED BLOOD CELLS = 2263) PRODUCT CODE (test code = U0907F39 933-2) [facility] [id number] 09:03:00 Test Item Value Reference Range Interpretation Comments Unit ABO (test code = 4847098) A Pos UNIT NUMBER (test code = 934-0) [id number] Status (test code = 5145529) ISSUED Blood Bank Product (test code = FFP 2263) PRODUCT CODE (test code = C1697R15 933-2) [facility] [id number] 04:23:33 Test Item Value Reference Range Interpretation Comments SODIUM (BEAKER) 138 meq/L 136-145 (test code = 381) POTASSIUM 3.9 meq/L 3.5-5.1 (BEAKER) (test code = 379) CHLORIDE (BEAKER) 104 meq/L 98-107 (test code = 382) CO2 (BEAKER) 28 meq/L 22-29 (test code = 355) BLOOD UREA 15 mg/dL 7-21 NITROGEN (BEAKER) (test code = 354) CREATININE 0.84 mg/dL 0.57-1.25 (BEAKER) (test code = 358) GLUCOSE RANDOM 91 mg/dL 70-105 (BEAKER) (test code = 652) CALCIUM (BEAKER) 9.2 mg/dL 8.4-10.2 (test code = 697) EGFR (BEAKER) 95 Interpretatio n of eGFR (test code = mL/min/1.73 values Stage De scription 1092) sq m Result G1 Leela l or high >=90 G2 Mildly decreased 60-89 G3a Mildl y to moderately 45-5 9 G3b Moderately to s everely 30-44 G4 Severl y decreased 15-29 G5 Kidney failure <15Reported eGF R is based on the CKD-EPI 2020 equation that d oes not use a race coefficientEsti mated GFR is not as accur ate as Creatinine Shagufta rupal in predicting glom erular filtration rate . Estimated GFR is not appl icable for dialysis patien ts Steelworker ID - [id number] 04:23:33 Test Item Value Reference Range Interpretation Comments MAGNESIUM (BEAKER) (test code = 2.2 mg/dL 1.6-2.6 627) Steelworker ID - [id number] 04:23:33 Test Item Value Reference Range Interpretation Comments PHOSPHORUS (BEAKER) (test code = 3.1 mg/dL 2.3-4.7 604) Steelworker ID - DBSARS-CoV2/RT-PCR (Asymptomatic ONLY)2022-08-15 03:15:17 Test Item Value Reference Interpretation Comments Range SARS-COV2/RT-PCR Negative Negative The SARS-Co V-2 (test code = target nucleic 52827-2) acids are not detected in [facility] s specimen. Negat suellen results do not preclude SARS-C oV-2 infection and should not be u sed as the sole bas is for patient management decisions. Nega tive results must be combined with clinical observations, patient history , and epidemiolog ical information. A false negative result may occu r if a specimen is improperly collected, transported or handled. This S ARS CoV-2 test is a rapid, real-sascha e RT-PCR test intended for e qualitative detection of nucleic acid fr om SARS-CoV-2 in a nasopharyngeal swab specimen collec yisel from individual s suspected of COVID-19 by the ir healthcare provider. DONAVON (test code = This test has been DONAVON) authorized by FDA under an EUA for use by authorized laboratories. This test is only authorized for the duration of the declaration that circumstances exist justifying the authorization of emergency use of in vitro diagnostic tests for detection and/or diagnosis of COVID-19 under Section 564(b)(1) of the Federal Food, Drug and Cosmetic Act, 21 U.S.C. 360bbb-3(b)(1), unless the authorization is terminated or revoked sooner. Fact Sheet for Healthcare Providers: https://www.[employer]/Documents/Xp ert%20Xpress%20SAR S%20CoV-2/Fact%20S heets/302-3802%20S ARS-COV-2%20HEALTH CARE%20PROVIDERS%2 0FACT%20SHEET.pdf Fact Sheet for Healthcare Patients: https://wwwPearl's Premium/Documents/Xp ert%20Xpress%20SAR S%20CoV-2/Fact%20S heets/302-3801%20S ARS-COV-2%20PATIEN T%20FACT%20SHEET.p df Lab Interpretation Normal (test code = 43100-7) [facility]omatic ONLY[facility]2022-08-15 03:15:17 Test Item Value Reference Interpretation Comments Range SARS-COV2/RT-PCR Negative Negative The SARS-Co V-2 (test code = target nucleic 08084-0) acids are not detected in thi s specimen. Negat suellen results do not preclude SARS-C oV-2 infection and should not be u sed as the sole bas is for patient management decisions. Nega tive results must be combined with clinical observations, patient history , and epidemiolog ical information. A false negative result may occu r if a specimen is improperly collected, transported or handled. This S ARS CoV-2 test is a rapid, real-sascha e RT-PCR test intended for th e qualitative detection of nucleic acid fr om SARS-CoV-2 in a nasopharyngeal swab specimen collec yisel from individual s suspected of COVID-19 by the ir healthcare provider. DONAVON (test code = This test has been DONAVON) authorized by FDA under an EUA for use by authorized laboratories. This test is only authorized for the duration of the declaration that circumstances exist justifying the authorization of emergency use of in vitro diagnostic tests for detection and/or diagnosis of COVID-19 under Section 564(b)(1) of the Federal Food, Drug and Cosmetic Act, 21 U.S.C. 360bbb-3(b)(1), unless the authorization is terminated or revoked sooner. Fact Sheet for Healthcare Providers: https://www.[employer]/Documents/Xp ert%20Xpress%20SAR S%20CoV-2/Fact%20S heets/302-3802%20S ARS-COV-2%20HEALTH CARE%20PROVIDERS%2 0FACT%20SHEET.pdf Fact Sheet for Healthcare Patients: https://www.[employer]/Documents/Xp ert%20Xpress%20SAR S%20CoV-2/Fact%20S heets/302-3801%20S ARS-COV-2%20PATIEN T%20FACT%20SHEET.p df Lab Interpretation Normal (test code = 58125-1) [facility])2022-08-15 03:15:17 Test Item Value Reference Range Interpretation Comments SARS-COV2/RT-PCR Negative Negative The SARS-Co V-2 target (test code = nucleic acids a re not 1271498) detected in thi s specimen. Negative result s do not preclude SARS-C oV-2 infection and s hould not be used as the yared e basis for patient managem ent decisions. Nega tive results must be combine d with clinical observ ations, patient history , and epidemiological information. A false negativ e result may occur if a spec imen is improperly adilson ected, transported or handled. This SARS CoV-2 test is a rapid, real-time RT-PC R test intended for th e qualitative detection of nu cleic acid from SARS-CoV-2 in a nasopharyngeal swab specimen collected from individuals suspected of CO VID-19 by their healthcar e provider. This test has been authorized by FDA under an EUA for use by authorized laboratories. This test is only authorized for the duration of the declaration that circumstances exist justifying the authorization of emergency use of in vitro diagnostic tests for detection and/or diagnosis of COVID-19 under Section 564(b)(1) of the Federal Food, Drug and Cosmetic Act, 21 U.S.C. 360bbb-3(b)(1), unless the authorization is terminated or revoked sooner. Fact Sheet for Healthcare Providers: https://www.[employer] m/Documents/Xpert%20Xpress%20SARS%20CoV-2/Fact%20Sheets/302-3802%34NAZC-XQC-5%20 HEALTHCARE%20PROVIDERS%20FACT%20SHEET.pdf Fact Sheet for Healthcare Patients: https://www.[employer]/Documents/Xpert%20Xp ress%20SARS%20CoV-2/Fact%20Sheets/302-3801%05YSNM-GJT-4%20PATIENT%20FACT%20SHEET .pdfCBC W/PLT COUNT & AUTO [id number] 02:34:00 Test Item Value Reference Range Interpretation Comments WHITE BLOOD CELL COUNT (BEAKER) 6.4 K/ L 3.5-10.5 (test code = 775) RED BLOOD CELL COUNT (BEAKER) 4.09 M/ L 4.63-6.08 L (test code = 761) HEMOGLOBIN (BEAKER) (test code = 12.4 GM/DL 13.7-17.5 L 410) HEMATOCRIT (BEAKER) (test code = 37.6 % 40.1-51.0 L 411) MEAN CORPUSCULAR VOLUME (BEAKER) 92 fL 79-92 (test code = 753) MEAN CORPUSCULAR HEMOGLOBIN 30.3 pg 25.7-32.2 (BEAKER) (test code = 751) MEAN CORPUSCULAR HEMOGLOBIN CONC 33.0 GM/DL 32.3-36.5 (BEAKER) (test code = 752) RED CELL DISTRIBUTION WIDTH 13.1 % 11.6-14.4 (BEAKER) (test code = 412) PLATELET COUNT (BEAKER) (test 293 K/CU MM 150-450 code = 756) MEAN PLATELET VOLUME (BEAKER) 9.3 fL 9.4-12.4 L (test code = 754) NUCLEATED RED BLOOD CELLS 0 /100 WBC 0-0 (BEAKER) (test code = 413) NEUTROPHILS RELATIVE PERCENT 57 % (BEAKER) (test code = 429) LYMPHOCYTES RELATIVE PERCENT 25 % (BEAKER) (test code = 430) MONOCYTES RELATIVE PERCENT 14 % (BEAKER) (test code = 431) EOSINOPHILS RELATIVE PERCENT 3 % (BEAKER) (test code = 432) BASOPHILS RELATIVE PERCENT 1 % (BEAKER) (test code = 437) NEUTROPHILS ABSOLUTE COUNT 3.68 K/ L 1.78-5.38 (BEAKER) (test code = 670) LYMPHOCYTES ABSOLUTE COUNT 1.58 K/ L 1.32-3.57 (BEAKER) (test code = 414) MONOCYTES ABSOLUTE COUNT (BEAKER) 0.92 K/ L 0.30-0.82 H (test code = 415) EOSINOPHILS ABSOLUTE COUNT 0.19 K/ L 0.04-0.54 (BEAKER) (test code = 416) BASOPHILS ABSOLUTE COUNT (BEAKER) 0.03 K/ L 0.01-0.08 (test code = 417) IMMATURE GRANULOCYTES-RELATIVE 0.20 % 0.00-1.00 PERCENT (BEAKER) (test code = 2801) CT, CHEST, WITH [id number] 00:30:00poorly differentiated non-small cell carcinoma of the right lungUnlisted Reason for Exam - Click Yesand Enter Reason Below->NoESTELLE [facility] : 1955 Sex: MFINAL REPORT CT, CHEST, WITH CONTRAST INDICATION: Non-small cell lung cancer, staging COMPARISON: None TECHNIQUE: CT, CHEST, WITH CONTRAST. This exam was performed according to our departmental dose optimization program which includes automated exposure control, adjustment of the mA and/or kV according to patient size and/or use of iterative reconstruction technique. FINDINGS: Lungs: A10 x 6.5 x 4 cm mass in the right upper lobe along the minor fissure extends from the pleural effusion and a hilum, broadly abutting the pleura and minimally invading the chest wall between the third and fourth ribs and abutting the second, third, and fourth ribs. Subpleural reticulations bilaterally,greatest in the left upper lobe and subpleural cystic changes, borderline honeycombing, in the rightlower lobe. Significant respiratory motion artifact. A few groundglass nodules in the right upper lobe measuring up to 8 mmCentral airways: Patent.Pleura: Trace right pleural effusion. Posterior left pleural thickening. Pleural parenchymal scarring at the left lung apex.Lymph nodes: A suspicious conglomerate of right paraesophageal/subcarinal lymph nodes measuring 5 x 1.7 cm. A suspicious right hilarnode measures 1.3 x 2.0 cm. A few nonspecific subcentimeter short axis mediastinal lymph nodes including a 0.8 x 1.4 similar right upper paratracheal lymph nodeCardiovascular: UnremarkableThyroid gland: Visualized portion unremarkableEsophagus: UnremarkableIncluded upper abdomen: Unremarkable.Chest wall: As above.Bones: Unremarkable. IMPRESSION: 1.A 10 cm right upper lobe solid pulmonary mass, broadly abuts the pleura, appears to minimally invade the right chest wall, with suspicious hilar and mediastinal nodes as above. 2. 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 3.A few groundglass nodules in the right upper lobe measuring up to 8 mm are nonspecific, attention on future restaging exams Signed: Dudley Romo [facility] Verified Date/Time: 08/15/2022 00:30:08 BASIC METABOLIC [id number] 21:33:06 Test Item Value Reference Range Interpretation Comments SODIUM (BEAKER) 138 meq/L 136-145 (test code = 381) POTASSIUM 3.8 meq/L 3.5-5.1 (BEAKER) (test code = 379) CHLORIDE (BEAKER) 105 meq/L 98-107 (test code = 382) CO2 (BEAKER) 28 meq/L 22-29 (test code = 355) BLOOD UREA 17 mg/dL 7-21 NITROGEN (BEAKER) (test code = 354) CREATININE 0.97 mg/dL 0.57-1.25 (BEAKER) (test code = 358) GLUCOSE RANDOM 101 mg/dL 70-105 (BEAKER) (test code = 652) CALCIUM (BEAKER) 9.2 mg/dL 8.4-10.2 (test code = 697) EGFR (BEAKER) 86 Interpretatio n of eGFR (test code = mL/min/1.73 values Stage De scription 1092) sq m Result G1 Leela l or high >=90 G2 Mildly decreased 60-89 G3a Mildl y to moderately 45-5 9 G3b Moderately to s everely 30-44 G4 Severl y decreased 15-29 G5 Kidney failure <15Reported eGF R is based on the CKD-EPI 2020 equation that d oes not use a race coefficientEsti mated GFR is not as accur ate as Creatinine Shagufta rupal in predicting glom erular filtration rate . Estimated GFR is not appl icable for dialysis patien ts Steelworker ID - BSCOMPREHENSIVE METABOLIC [id number] 15:30:39 Test Item Value Reference Range Interpretation Comments TOTAL PROTEIN 7.8 gm/dL 6.0-8.3 (BEAKER) (test code = 770) ALBUMIN (BEAKER) 3.8 g/dL 3.5-5.0 (test code = 1145) ALKALINE 90 U/L 40-150 PHOSPHATASE (BEAKER) (test code = 346) BILIRUBIN TOTAL 0.3 mg/dL 0.2-1.2 (BEAKER) (test code = 377) SODIUM (BEAKER) 139 meq/L 136-145 (test code = 381) POTASSIUM (BEAKER) 4.0 meq/L 3.5-5.1 (test code = 379) CHLORIDE (BEAKER) 105 meq/L 98-107 (test code = 382) CO2 (BEAKER) (test 27 meq/L 22-29 code = 355) BLOOD UREA 11 mg/dL 7-21 NITROGEN (BEAKER) (test code = 354) CREATININE 0.84 mg/dL 0.57-1.25 (BEAKER) (test code = 358) GLUCOSE RANDOM 90 mg/dL 70-105 (BEAKER) (test code = 652) CALCIUM (BEAKER) 9.5 mg/dL 8.4-10.2 (test code = 697) AST (SGOT) 23 U/L 5-34 (BEAKER) (test code = 353) ALT (SGPT) 15 U/L 6-55 (BEAKER) (test code = 347) EGFR (BEAKER) 95 Interpretatio n of eGFR (test code = 1092) mL/min/1.[address] age Description sq m Result G1 Leela l or high >=90 G2 Mildly decreased 60-89 G3a Mildl y to moderately 45-5 9 G3b Moderately to s everely 30-44 G4 Severl y decreased 15-29 G5 Kidney failure <15Reported eGF R is based on the CKD-EPI 2020 equation that d oes not use a race coefficientEsti mated GFR is not as accur ate as Creatinine Shagufta rupal in predicting glom erular filtration rate . Estimated GFR is not appl icable for dialysis patien ts Steelworker ID - ADMINPT/[id number] 14:37:48 Test Item Value Reference Range Interpretation Comments PROTIME (BEAKER) (test code = 13.0 seconds 11.9-14.2 759) INR (BEAKER) (test code = 370) 1.04 <=5.90 PARTIAL THROMBOPLASTIN TIME 27.7 seconds 22.5-36.0 (BEAKER) (test code = 760) RECOMMENDED COUMADIN/WARFARIN INR THERAPY RANGESSTANDARD DOSE: 2.0 - 3.0 Includes: PROPHYLAXIS for venous thrombosis, systemic embolization; TREATMENT for venous thrombosis and/or pulmonary embolus.HIGH RISK: Target INR is 2.5-3.5 for patients with mechanical heart valves.CBC W/PLT COUNT & AUTO [id number] 14:32:06 Test Item Value Reference Range Interpretation Comments WHITE BLOOD CELL COUNT (BEAKER) 6.6 K/ L 3.5-10.5 (test code = 775) RED BLOOD CELL COUNT (BEAKER) 4.34 M/ L 4.63-6.08 L (test code = 761) HEMOGLOBIN (BEAKER) (test code = 13.0 GM/DL 13.7-17.5 L 410) HEMATOCRIT (BEAKER) (test code = 40.3 % 40.1-51.0 411) MEAN CORPUSCULAR VOLUME (BEAKER) 93 fL 79-92 H (test code = 753) MEAN CORPUSCULAR HEMOGLOBIN 30.0 pg 25.7-32.2 (BEAKER) (test code = 751) MEAN CORPUSCULAR HEMOGLOBIN CONC 32.3 GM/DL 32.3-36.5 (BEAKER) (test code = 752) RED CELL DISTRIBUTION WIDTH 13.2 % 11.6-14.4 (BEAKER) (test code = 412) PLATELET COUNT (BEAKER) (test 333 K/CU MM 150-450 code = 756) MEAN PLATELET VOLUME (BEAKER) 8.9 fL 9.4-12.4 L (test code = 754) NUCLEATED RED BLOOD CELLS 0 /100 WBC 0-0 (BEAKER) (test code = 413) NEUTROPHILS RELATIVE PERCENT 55 % (BEAKER) (test code = 429) LYMPHOCYTES RELATIVE PERCENT 25 % (BEAKER) (test code = 430) MONOCYTES RELATIVE PERCENT 16 % (BEAKER) (test code = 431) EOSINOPHILS RELATIVE PERCENT 4 % (BEAKER) (test code = 432) BASOPHILS RELATIVE PERCENT 1 % (BEAKER) (test code = 437) NEUTROPHILS ABSOLUTE COUNT 3.67 K/ L 1.78-5.38 (BEAKER) (test code = 670) LYMPHOCYTES ABSOLUTE COUNT 1.65 K/ L 1.32-3.57 (BEAKER) (test code = 414) MONOCYTES ABSOLUTE COUNT (BEAKER) 1.03 K/ L 0.30-0.82 H (test code = 415) EOSINOPHILS ABSOLUTE COUNT 0.23 K/ L 0.04-0.54 (BEAKER) (test code = 416) BASOPHILS ABSOLUTE COUNT (BEAKER) 0.04 K/ L 0.01-0.08 (test code = 417) IMMATURE GRANULOCYTES-RELATIVE 0.30 % 0.00-1.00 PERCENT (BEAKER) (test code = 2801) PULMONARY QUANT DIFFERENTIAL FUNCT WITH [id number] 12:52:00Reason for Exam:->[id number] : 1955 Sex: MFINAL REPORT PROCEDURE: perfusion LUNG SCAN w/differential function CPT CODE: 09603 INDICATION: 67-year-old male, lobectomy versus pneumonectomy. TECHNIQUE: 5.5 mCi of Tc-99m MAA was injected intravenously, and static perfusion images were obtained in multiple projections. Relative tracer distribution was determined using the geometric mean method for the anterior and posterior projections. FINDINGS: Perfusion: Tracer distribution is patchy within the right lung. Pulmonary artery flow is divided 46% to the left lung (8, 26, and 12% to the upper, mid, and lower lung [place] respectively) and 54% to the right lung (14, 29, and 11% to the upper, mid, and lower lung [place] respectively). IMPRESSION: Regional lung perfusion as described above. Signed: Randall Vila MDReport Verified Date/Time: 08/09/2022 12:52:55 FINE NEEDLE ASPIRATE BY EBUS 2022-07-14 15:25:24Medical Cytology Report Case: [id number] Authorizing Provider: Izabela Galvan Jr., Collected: 07/13/2022 02:09 PM Ordering Location: [facility] Received: 07/13/2022 02:42 PM PERIOPERATIVESERVICES Pathologist: Lopez Dick MD Specimen: Lymph Node, Subcarinal, Station 7 LYMPH NODE, SUBCARINAL STATION 7, EBUS FNA (DIRECT SEMARS AND CELL BLOCK): - NEGATIVE FOR EPITHELIAL MALIGNANCY. -BENIGN FRAGMENTS OF ANTHRACOTIC LYMPH NODE TISSUE. Signing Pathologist Direct Phone Line: [phone] signed by Lopez Dick MD on 07/14/2022 at 3:25 PMPlease also see cytopathology cases: [id number], [id number], [id number], [id number] y.o M w/ h/o arthritis, anxiety, depression, COVID-19 pneumonia in 05/2021. CT chest RUL lung mass measuring 4.[address] guided biopsy of RUL lung nodule, path was positive for poorly differentiated non-small cell carcinoma.LYMPH NODE, SUBCARINAL, STATION 7 EBUS FNAA. Lymph Node, Subcarinal, Station 7.Received 25 mls in cytorich red and 3 direct smear slides; prepared cell block (A2) (cell block placed in formalin at 16:27 on 07/13/2022) PASS# 1,2,3: SCANT LYMPHOID TISSUE, NO CARCINOMA SEEN(REPORTED BY PATHOLOGIST LOPEZ DICK M.D. 1:40PM)Performed.[facility], Department of Pathology, [address] [place] [address], [facility], [facility] of [facility], [address] [place] [address], [facility], Department of Pathology, [address] [place] [address], [facility] Needle Aspiration by [id number] 13:35:13 Test Item Value Reference Range Interpretation Comments Case Report (test code = Medical Cytology 104) Report Case: [id number] Authorizing Provider: Izabela Galvan Jr., Collected: 07/13/2022 02:10 PM Ordering Location: [facility] Received: 07/13/2022 02:43 PM PERIOPERATIVE SERVICES Pathologist: Lopez Dick MD Specimen: Lymph Node, Interlobar, Left, Station 11L DIAGNOSIS (test code = [id number] 3220) GFuZzEwMzNcZnRuYmpcdW MxIHtccnRmMVxlcGljOTY hBbfzfyJcRAYokSMbK6Up cyebKKlaCO0jTB5wsZptz WWtvCTwGFDvNeObs5rzy1 11hMMap8acIQUTptgcaUg 5bAhuZ94ix7A1PwcjN56d kDPtRCB3GWItDFZcrMVgJ QJfLVB6HYEatJQhC6tmVZ QsDJ2aqhnlQWlzBAqzIEN fgRC5IMJllVVtX8BeUKMj WTvhQACaxfo9GgCgAm6fg GVyeTcyMFxwYXJkXHBsYW luXGZzMjAgTFlNUEggTk9 ERSwgTEVGVCBJTlRFUkxP YzCMKANANJWGW04bHJZTZ CBFQlVTIEZOQSAoRElSRU WRKZZSVEVDKbKDObOwA7X IABEUNW5XPcv2XACigyYf HMZfEQ8NW0SYARZPKTAZJ wBZQRzGWMKZPQBVUB9OOY vDEwJSS1pcTYPskxNyWLH tIEJFTklHTiBBTlRIUkFD H0NJJlEMWN9KIHYEM7XDF QQONHfAFR0JXx1wIKFnaj 84MBU2LsDol8E1YKA5FMP cQEQvf2arCTTemXWyUiQv MzNcZnRuYmpcdWMxXGRlZ zItm8vxy239jCYrp3uhKP ArQoB0hFWvDZBucMEzG20 1DXEcGJqie1brw8CkEFVh mJRro0N0HTWDjcxbnFv1e RcdM66xf0K7CojgG1vqMG NpWREqS2UtEK8vGXYzXaj 7XKS6EHY2HEVrVOObK8Uo NE8tUBMaiSEsKGb4n0obj QcbMLYiUHE3f6udXErdxo LgEP1okb9nrQz5m9emnoP zSZTgBNGsxICPSFXuX7Hv nToiQh2jxRs2oZndGlieW QG0Tjn4AW5iwf46skd7lL ttVAFfmhktIhW0XMzoKTW vpjqyOHy4NCoeXDEnfSW0 CIOojRNnO0RsDDTiVS8qv ey7NRL6VJjqDEMyKjE2RV ZkkYNkTTTpxCppXJlum83 8DLA3PgEvQK5tP7Mll8D2 dO5drEWeNQEobPHvLuJtC AOiav8stUDeMKwtp9MuRE R3lyT7gUMnvMUbVNNnBpU 5VIuyLP7toy78SQYcQKC6 af8wvXEopSnuvrDvcRLsQ HpkS8McNBDbq669XEQdE6 JcGVRic5I9dbQmGmLzQZJ svLC7jzM6XRGfGM9ztrca n6ncIGcyWPftXLRykpZ1z nN1NTTmxXXwF3QjsW9zTR KzUU6jqtjkp1spKOB9HDo mWNHaMKK1DpEpZEEcd6Tg pwt3KgCyi9NosHVbFWolX 91va313BTTpyjIiQ8cymM FpblxwbGFpblxmMFxmczI 0XHFsXGxhbmcxMDMzXGhp O7qnKvEqVKTzbNmzDThxj 2NoXGYxXGZzMjJcdGFiXH SiNzs8JCUjuQVcBRShRyH dU6ocvudcAqUFTICec1vt L9booYPAnOFtQ9FjJBtwu mVhOSdfPJalEkImMTc1UK 24UqPvKXPugo51 COMMENT (test code = r2hgiOJkUQJcaAU9YgCmY 3359) ZChf4ywh2YowSEohBEgMW bdxTEpkvOofn80sMO6dE3 1CM5yYVNoMcY8MYHjasM6 Pik9FZBoVYCiiWQnM014l 0kga1uigyOgpNF8eQqiXU QrrqlqGpL1CSbpPABedxs nBLh0VUnhDLNejJD1YICf oKFzZ7SaAUCxWY9zpzv8C DT7OAbxQBDkGnT3OPOndJ OxUMRuwEudRXrfi582MTH 7PfNhLOSfchPhhWrpmQ0l EqLmEGFVlQGcp7ZbMMzxo zCvRHRdT5b7v0NybFibeX 9neSBjYXNlczogQzIzLTA cVcF3RFPNWvQsXMPqJjMw cGFyfQ== CPT Code(s) (test code = i0ghzJNkMHAydRL4IsPbG 3357) AHpi1mcf2AnfHIjbIZkVS fnbDSifsJyly92sBK7fR8 8GO9pFUJdTlT5PMKdlpT9 Hmw1EPRiFDUozFToL761c 1pkr9xhfaSorYC5fQtcTE RfeiyjArU1UDbdRPFtvkq hIVi3DBcgCYLpwEO0EYDo hNKyV0ZgRJQoTR4njwo0N LR5XVucWXXpKmL5PTYugR TiZZLjgLtqTZzsg104QUO 9DpZyUPTbinXyrWecnE8m CnOaFNG7KZI0KppuHNvuI oUbRLr6NrT3NKWcig7= CLINICAL DATA (test code y0aryBWrCTHadLX4RjFpD = 3355) ZZrl0oai4WpqHAigLYwCS insGCdpfEeyi36iWX2lX5 3LZ0hHUWxTxD6BZXrqzN9 Idu8XTJmGQAfhZCeW919m 0dfd6bjdhEomJI9iRirRO JktffqTlJ6VOeuMPXyixq uJJk7LSvcIVTutQR0XAJb rDBuX6WuOIAuLD0ceom4G WO8VJvzLIPbZmQ8EIEstJ OeWVMifIitKJzqk111GIV 7YeRuPPIgfcZbeDlyhV7a TcNjLSQ2QPM5Qi0tUXN9O lErO99xKUB6rJIjaEpbCA DnpjkrBME9ASDcCXDlWKE pkO0nNAAEX2CQXD1sROFh uoK5fJ9qnJDibK8uKJMjR tJmNL9uA3VeB2rud3RrKI BZZAYjyX7qWI8rg9LtrBY ox8CcqW2iVVZcFJTybD2a YQ2uCMX6QD08IHUHONh4a MGvNPRegX1kf9wna8GzSq OETCa1nnwool3abUciZWR qUKDzTFyrkxCry9XrwHq3 FFRvo3PpxX1mewt9YJEoP wRvjeQttYbrjUJgII2wuw 1zbWFsbCBjZWxsIGNhcmN vxy6qUT8heENobP== SPECIMEN SOURCE (test p4gbxIJmFLHcvFL2BeMnF code = 3377) SMqq8yeg7JvgWXexBZgHO dbyDMufzJcsl51fBR8tX8 2KD4fUTPvYvF3NWVhdbL1 Skp5JVMbXVSoxHSjB865l 2pjm7njiyGfzUM1mZltBS ZgtjfyOmT6XSnjANVmvlh jBXf3ZDewPPEdjRC0NXCg vIKdE6AzHILhMJ5wgtw7C OX8RMnzLWOlWjG8CIWjqM CtIOApuZnwXLuvh725GLD 4YjYpGHZdlgDskVqlyF4s IxHbUUGDCY6WPHPQI6EYX CBJTlRFUkxPQkFSLCBMRU ATWYDZCYUTWT7ISPKlIID FQlVTIEZOQVxwYXJ9 GROSS DESCRIPTION (test w3awhQXzIHZusNLPVMPjQ code = [id number]) 6wutjYaJEOnxTCvG0Kcuv piOPcwDI7jUW5lkLlylNR orKCnNP6HZQAcJmYtVNFn cGVydzEyMjQwXHBhcGVya DC5QJQzJP1vmruvACamWT faXICcmuA5TVIunMFtW3E iQCZwLR4wwlsyEWM1SJsg tN3sxzNQZenzBc1jmUPsh HtcZjFcZmNoYXJzZXQwXG XehYszHCYsILz1aJ8SBxc fJQM6ASNPRfjvUFLdBE5Z r3uoZMGylNPoINV8TKcct RQkKQIxDGKdYUo9DMKkGT uwfWUaRI2lrEcyUbyvdXn gj7YtdVDoFIhnJFXtVIYw LAtdOORnRQ7DGiMhTLcsY bg2TyOmEBj4JDs4ZN6PZk ZwZQYkYlG0Qgs5DmGsXIp 9BNsgPO5VPQY8DHu0RMj2 PHU2ANZsOKPjTDBmJtXwN GYgQXJpYWwgXFxmbCBcXG 5rqUatyGFfthQDMpFVtN7 omCNLp2EfYUQIijRzqhdz SjRnIDQVGVV8OVMMbVW2f J8uKWCyFF2haDKjYC1VWG KfbSOWCKI2DX7mCNJQUxe fvEVpCREvjIxkSDqtwP3w GH4CXZq2ogRdCQLpRgYuJ pRnATa0BCZdMjjncDtyLN ccNBO2lK0zyZGwEYQbNHZ ahoQyXyFbjQGfG3Nhy91s ABSut6ciOUUmNnGikoGkQ HAvCJEsRFjwBKAco9CcMO cWJhbbNVHlrLakOoslT2y pjSeoP9OxUCkiTFSvnd0n zTrdGXY9VWO8LaUsIC0bC DAyLzAyLzIwMjMpICANCl xwbGFpblxlcGljTmVzdER qZfViqXeghZ92IBLkaLLd RUV2MU3lRKWitrvsPWJrX SDoHZB7CAyycG02kZNuDE GvEKZlkEEgyW7NUBKwNWH 2JFvfrD66mXHvAP0HBNCm XVK5ZIPkfIMfNMY3ZL9eh Q0KfQ== INTRAPROCEDURAL ADEQUACY q0twtLPyVWBkwNE7WuWpR (test code = 3370) NGvs3sak2BrpIYshBYnQB dtbYHffqEomi35oXE4bN9 1XM2qYAMrZjX8PSCtikR3 Ulw8GLWkYFJhqSPzR138p 3ipn4mgzdHvrGQ3wTfvFL AunwntHdN2KJmoISUnjbr aRPb7HHmkCTVpfGX3HNWd oDFiW6ViTERaVH9xawc7W VC2SEywCBXrZzD6BLZcmV ZvOXQugZvtPHett905OPW 9EfRbBNUlugBnbBrclF6k JpEiNSVCNKJRDU6FWYMgK MAFJP3QYIDIO2EQUhdwKW SjPXIHR0FeEVLWRRQTGYY sWRBGYX3QHGNULNLZBATQ RDlTZL9QKDDRAKMFPUBOM jXoOO3XZSMqPcReRqIyEo MpXHBhcn0= MICROSCOPIC DESCRIPTION l8qayLBfVKDtwDD9TnIfY (test code = 3371) CCyi1jur1VedIDqvIRpWH dtbLByrsNwdm91iCG1fU7 4FH6aHNTlAeP8JLAfvyA0 Skh1AAVzOMOpvRCgX504r 8vwh8wxfuMryZH0cZsiNX TmkwrjBeU1ODkyJVOkcvn wZFe1LMtfCSVuzIA9JGSu bKXdQ3ZwWWKsAO2fmqa0Y CV5ESafKLNiVvI9PNTbjN TvLFSxiOeeTKyws695RZZ 2LwTjRLUioqGqkUiggJ7r FfYlHSCGFJOzs2RrYAVnG HBhclxwYXJkXHBhcn0= Gross assessment was [facility] performed at (test code Medical Center, = 2773) Department of Pathology, [address] [place], [place] [id number], Technical component was [facility] performed at (test code Medical [place], = 2778) Department of Pathology, [address] [place] [address], Professional component [facility] was performed at (test [facility], code = 2779) Department of Pathology, [address] [place] [address], [facility] by [id number] 13:35:13 Test Item Value Reference Range Interpretation Comments Case Report (test code = Medical Cytology 104) Report Case: [id number] Authorizing Provider: Izabela Galvan Jr., Collected: 07/13/2022 02:10 PM Ordering Location: [facility] Received: 07/13/2022 02:43 PM PERIOPERATIVE SERVICES Pathologist: Lopez Dikc MD Specimen: Lymph Node, Interlobar, Left, Station 11L DIAGNOSIS (test code = [id number] 3220) GFuZzEwMzNcZnRuYmpcdW MxIHtccnRmMVxlcGljOTY qFyvubyCuWCXvtXCfH9Td dwrmBFchQP1vLZ2egKeiu QRgjOBrIYHcLmPty1osz3 52cOLjx0hcRJAWyfdsdPh 4nNfcK65gz9V8KzosF49h cFZwYPJ8UYBzWOHecKUhR THiTZC7KKLcxHKfW2tnLO DhSP4dfrygAFkjHQwjPGB whNI8NQBtsTVlJ7QkBYLz QOktGEFukxz7EiWgPp5qu GVyeTcyMFxwYXJkXHBsYW luXGZzMjAgTFlNUEggTk9 ERSwgTEVGVCBJTlRFUkxP UyHPJRVEGEJJW10oWUMYQ CBFQlVTIEZOQSAoRElSRU GVEHQENNBPTkOUSeRoQ4F LETXRXD9OBng6AONweqMg DLVePA2OQ6EEHBFZJPCCR jHGUXoMRVRTXQRLRB2VNC kKRnDHM6jiSTQfqsPySMR tIEJFTklHTiBBTlRIUkFD O9IJZcDNQL3XBZGDP8DXH ACGMShDVT1ITe4tCXZwak 23FAM8UaFkd4Y3NIY6QPG sJLKjw4guRYApuBKdCpLs MzNcZnRuYmpcdWMxXGRlZ dFhg2olt911aAXeo4szEI PsTvD5gEBcLNNtzVTeK24 9YPBqXZphl6ahy6PkYOZy kCKcr8X8YSVSddfavHf8m VfdU87vn6T1IvtmS7crHS RjPMUfR0RuNL4vXXBqHnh 0BRJ6NSN0TGXxJQYeV0Pj PJ9mMXGjvEAqWUv7k3ddh FylHCCyMCI6b1xnNXbdae CqMF7lec9asOz3n8diqcG vXBXhMFKwrFCCTULxR4Be kQqxSf6sbVx0yLkyYtplY YP4Lop8EV1cxf87hom6sX ctVUNefqkyGgA2OLcsDXK jptujCUz0FAxiKRNrsRM4 JTFrvXNiK5YxQYCkET6vj vx3JZX6ALeiYXAvXsA8GC BjjSZaGXQjxNlsWTjve98 6VPY0EsBcEQ5aZ7Wjr2F8 wC1tgXJeDCIgqKGhQiAkS RWrfg5whQMaFDvbc6FrSZ J3hyJ1eYQvqGYoQQOpMkU 3YHlqYC0bvw69WVSjFRV9 xc8ukZGxbMvigaTexCDkZ JkvT9WnYQLxt478BHUcQ7 FlYHQsw9B8meGvUzPpPNP rzII4nhZ2JRXrOJ2tjvhe e8jsRRylIHqyYLXyhqD2h iN7CXGgcGKqB6BdzR4jRE JlRJ6iqiazr4euJIT5VVp pQPSqAMK3XwPgRHQfy8Ce dzi5PtVdj7ByhAVrYVfrT 50dj484OOEsjuZcJ9cyzZ FpblxwbGFpblxmMFxmczI 0XHFsXGxhbmcxMDMzXGhp N2xxClRfGGWbpOqvPGjjb 2NoXGYxXGZzMjJcdGFiXH IwGal7HSRiyDQtUUAeBdV hK9lsfajlNpHFKJDiy8gu Q7uhfESBbXKyH9YfNMhav bIvBFdmDGhbXiByWKi7CD 48KgNqOKLrpa91 COMMENT (test code = o1fgbESdOCWlvFS7HgNhX 3359) TTdq9gbv5SerFXhkPOySH qefLPphaNzzc06bNL6dH4 8AZ8vCEHnYuZ7TZOdtnN1 Dom0EOMmLMJgkRUvK937u 9gsa5myvoNmzLA8oGxaDH BonskzDqS1FFbbZHMqyzp fZWg8ZQiyFDPrtZU6MYWu pZOsM8UfXWIlBL0vmpk7R KK3OMobTANxHxG2LXTbsD GwFWCmuGopHPvoy663TLY 2UkIpERKcmwBhnXwjsL8l WyJfTSGDqTCus4PmDUzaz bMmNPQfF8x0u3LfwPrcvX 9neSBjYXNlczogQzIzLTA lExB7EDIITfMtNWYvJaZf cGFyfQ== CPT Code(s) (test code = o1rhdHXbZVBnaZF6YeXzH 3357) RJjg8vbe6IcxNKvxOKfPV lrjRTebbPxuf10sSN4uR4 1EX1gHQWuPrK7LDHrloQ3 Wxj7RQWxEYIipWBzM551e 8kih5scakAmyXY6pKbsRB QxlpypCoN6TXmmMVTjgce eBJv1VTvaXBPwgNQ8MFBf mQNcG4QoGDGdFI8zqbt5K PC3RQfiCSZpZhJ6QUOxeG JfQLRurVnlWTpms833DLB 2IyBiEPEiasWdwXipnV6l TjKqETC1OUI7HulgFRqeA dRrIFv5ZwC6LWZefw1= CLINICAL DATA (test code s5xvaYRnWTJamHZ5SsZbZ = 3355) ZKbj7ysj6WvtJKyiLTyDS vlhNLvvpAsll68rKH1rN8 1FW8kNNVfEsJ3ZYAheqB3 Qab3ARIrZHCeuVAcX540v 9xwp6ewiqXzoEG6oIvsCK KyopjoFwW3IButJQUjfld dUBs3NFwkVPYrlHB7PRKs wHHkV7FuUINoXP5gnaz7B NV3ZWzqLOXiVtV9OGPqqG IpYFJlkFbxWDetv693COI 0FbOrEZYyyyItiQkdhJ4z AhTiMSC7CQE1Yd1wBAU0S cDnV63pBIT2oRXylEqoGZ VsnrpxIWL0UREjBRDtCIF yxW3mFBGQG7ZEXA7wQIIm ukV5yO7zqKCmkZ8uFOZkO vMlQS6zN9MqR3lkn3YgSP CVEECyfT0xZQ2oe3GziDF xm3HzzH7rZBIcDDEobB7x NY7yJBB0AF99ZHJZHNr7a QDfGXBlsN1no0oxz1GzNc LUBPg2gtfbli6xkFrzNZJ tUYJcHYjzvvMtd1AihNa7 IFWzr5WrnD0nank0LZMsC dOwdiXarGtldQRrGY0zzz 1zbWFsbCBjZWxsIGNhcmN abb9wTT9zjFHzhW== SPECIMEN SOURCE (test n8gauSTbWDEldLB4LpVoN code = 3377) JNbm2jwl9AqvOHyaNFhRI qdpCQrpsQybe05hXJ7nR4 0UI8uIDXrNwQ0MYAkyeA8 Atx8WRBsELXtmVTzK433c 5sec9vihhQveTK8zNlaGZ MgmkcfGmD5BZcnGKKpeza qIIj1COxvTJSlmRE0VVKa yAFrC6DpHBWcZP5djjn4Q TJ3ALstDMMyFbD6RZZqsS RrOAKpyPxnKMyxa493NIT 1KhGdNACjfnGjvCkngE9p CyHwMTFICD0CXRXZJ7NCX CBJTlRFUkxPQkFSLCBMRU PMHSJGXHFLSY2RUMTgPUY FQlVTIEZOQVxwYXJ9 GROSS DESCRIPTION (test d8yxqBGzPLGvdVBIGKRpV code = [id number]) 1tetkMfYDVjzXIlR7Mvpx tkNBlmMH2yES5lzLbbgXU odTNhZS5TNACxYyDjAFHm cGVydzEyMjQwXHBhcGVya VM7MVObFQ9mmtwbCEqtVO swOFMqyoI5NXMzvZZrJ1V kUNPlDJ6afednDPE0TGwx dQ4ytxRAHocuJk6tmQByj HtcZjFcZmNoYXJzZXQwXG JxoGaoOSKgCUe1uZ7EKwr uLAC0SVYOAjoeDXEmAM2O i6hzXKPnaUJqRRJ2HLloi QSfWVHzIHMwVCr2ODGqQM mfvSIcCA0icCkfSjdrlXz bx3FpuUTbTQgwGUVqAQJy RYgxWNHxNK8WNgHuKNidU hd5IqZlEUx6TMi9RG2FWu TjWHPrIdQ1Bie0FtQmWBf 9QYnbTC6NVOR1DBf1HQw7 KCG5ELSeDXNoJXRwRoYyQ GYgQXJpYWwgXFxmbCBcXG 1jnLnhrFLsyxEEOxOBiO3 zhAKAj6TjEMOWisRthcay VhHkDDHGHJH2HKLToGQ4o A3yDPQcPG2adLLuRW0ZPC BmgHXEBEJ5YT8cWLAEGcm jiKSlFYArjGqtFDiufE7o PI0QSVl1urFuCEJlOxAoB cOuKNd8QQNjKbkjbYciUQ boLFA1xX3eyKVdNJYiYVU ommLrOmZldSIeG8Oku91b OJXce8ivXXZlIrTdrnNyV EAqUBLiVIqaHDOvt0SlIE eDOpprAKYndFtlVekyF8a kxNcxJ6OkWAoeDKTrtj5l cKweZRC0FQU8JkKhZR6cB DAyLzAyLzIwMjMpICANCl xwbGFpblxlcGljTmVzdER yBiVhgPalnT27MNRynIYa LUC8GX5vGNWqrtzgNCJbK VYrDSB2RLyuqL19tOHsNU TlULAxxCYuyQ8UXDRsKOH 6WOvhaG25yWOoYH3GJGMg FDO2YLLqaEIjVPK9JB6sa Q0KfQ== INTRAPROCEDURAL ADEQUACY d4cekMFvJKAaeDU6LrWdZ (test code = 3370) OYiu4hpc8GrpYLctBDcIO yvnQXfarYceq30iXQ7jX8 1CP7dWNYsIbA7OWCohtD2 Xex3ZLQdHECwdCHmE667r 2fge7kgwnFmlSZ2uSdjYS MqzoyeLbA3AHfhHYPttmo uQWm7TLwbPNMamWB4CNPe gCZmC8JaDXXhTT2scvk1N NY4UQbkROZtGhI0ICLifN PvOVKzlPqrCWmnr906WSL 6IfLkCPMnqoCdoVqlgH4a LgEdVFQLTWSTAT5ARAZjO GTYKW2INZURR9XEDxqkZR WfBBRPS0KzNPWOFCDQUVV fFCCOZA8PVCWKMRIKFWOV UGxEAN1OHPTVCPHZKVGKO fBjZC9NTZFpIbDgZgCtEq MpXHBhcn0= MICROSCOPIC DESCRIPTION r6vgkOJiESDciXS8HfEqK (test code = 3371) GTpt5qxp3UgqELpiCTzPR bjvCFcxxCdvp08bVI6nY9 4GB3uXMNpQdA9QTYbgkG6 Lcb6JGDqNBTajEYyM096g 2obs4awhzBmqTJ0mOanVO DjwiktRoZ6WArxAOWzlsg bRRh5PIgtCEEbmMN1LUCx fDWhU8VsCJViTQ0gzga6Z UU6QHlwAGFeElK7VMXpaQ EvXUXmsGxgMQisb896OXJ 2DmFzOMWckqUgzHlclD2o LwEsPKBJQTVdo2TnWYOtW HBhclxwYXJkXHBhcn0= Gross assessment was [facility] performed at (test code [facility], = 2777) Department of Pathology, [address] [place] [phone], Technical component was [facility] performed at (Formerly [facility], = 2778) Department of Pathology, [address] [place] [id number], Professional component [facility] was performed at ([facility], code = 2779) Department of Pathology, [address] [place] [id number], [facility] [id number] 13:35:13 Test Item Value Reference Range Interpretation Comments Case Report (test code = Medical Cytology 104) Report Case: [id number] Authorizing Provider: Izabela Galvan Jr., Collected: 07/13/2022 02:10 PM Ordering Location: [facility] Received: 07/13/2022 02:43 PM PERIOPERATIVE SERVICES Pathologist: Lopez Dick MD Specimen: Lymph Node, Interlobar, Left, Station 11L DIAGNOSIS (test code = [id number] 3220) GFuZzEwMzNcZnRuYmpcdW MxIHtccnRmMVxlcGljOTY xKnpwaiXgDLSsiCUaR8Eu yqliTLomUD4gVX3mmHwse NIzaJJpGOOiCpPdm4fcz9 16sJJkz6uzSRFLhwqlcHx 5jExoA88lu8E2ForrP06l cFRcUQF0LDNgSKZbfPLzA ZGxGFY9CYOvhSJsK4pwNI DjVR1clmpjZKqvTTkoHHM fhZM1AOWzjJFfI0NoPVSp WVfnHWLrkhb1WiFkTk6ty GVyeTcyMFxwYXJkXHBsYW luXGZzMjAgTFlNUEggTk9 ERSwgTEVGVCBJTlRFUkxP MjWLNWSJHCUJD09iBPNUF CBFQlVTIEZOQSAoRElSRU CBXBJMGEJHJrSRKaVdR5Y RUWFMDS2LNyw9CGNxdbIm ICLjHE3HM7WZBUBMJYEYS gBSXAjRJWRZRIIEKT0XWI pHGcMHY6njUFGizwDdFZL tIEJFTklHTiBBTlRIUkFD P2PQXgUZVR1WODOMX5YWH AYYVRjYZA5CNp7hIYInhu 13WUF3KqAvb5H6RIA6AZO iZKVlc5vaOGAqiNNyGuRx MzNcZnRuYmpcdWMxXGRlZ lWae0hey614kJQiu1diUV GvBgR4aJRrDURxrUHjK04 1ECZlHPqrj8isv7TfPUMq lHLgz4W0NNPWglocbEd2f FqzE62wt0U7MbprW8nkCB BhXJRlA5EeTW7zSSHbIlc 7WLP4TJB7DENqHWLsF5Qg QA3nOOVceAEyHLf3e6gvn QffDAArSMQ8k4faCGiext FrAV4djj9wxEv2n3gpuiH iZTNrDKZwtGUWATYsY4Qx wPyiEq4wiZe0mLohYscdO AH8Nde3OV3axi49xaa5wJ sxUJUfwwxhHxF6HDcpPQH vwggxMId9GOxsGLOapIL0 MCFylWXwR4LtNYScET0dr na9FEY8JXpuMDNxUsT0CK QkdBRyLJNrbCzuCNque84 6LIA7AaTqKT1zT5Ory4I0 zM9bfRHcJXWmhIKuRiQnU XXzat9faXSpGTmoc8YfYM Z3xjE1yIZavBMuGBUgEsB 1OTfnXI9uja02QOWjFBI5 io0uwENzqMwxapVeuAEuQ JifJ3SfBWNcf838KADqL5 QyJQNjm9I6fcDxHkTbUIK gnQN3heZ3REElHL7cvxob s9abIGlwCDonNQMgoeT3n bH2DMCtgPCjL6ExcU0rYQ EyEC6oohzwg2weFQZ7HXk mPRJqXLA2MxQrWVDol8Jz etb9NkJbm6IatWClBKqyW 95uy758OLErmiFvZ9nwaS FpblxwbGFpblxmMFxmczI 0XHFsXGxhbmcxMDMzXGhp R7nqRuZsPQBohCniJUbms 2NoXGYxXGZzMjJcdGFiXH BvPqd9AOMrhBSqHXMjCkY hX4bxlnpoZuJLFGCxy3nl V2spjSIGeSPqB5XpGGvwa yCtWHmfTSnkYuFxTNj5LV 71WwGbHIWyeh95 COMMENT (test code = b1sxnAZlZKUhrOM6WeSoP 3359) KHhe4swg3VcsBWljRFvZE oufSLjejXwmo74hLR9pK8 7UM6hSHYnNxL9ATUwhlH7 Jpw5MJOoCUVufIAcK596q 5lgm2eexrFggGD2aRtkMR BoafiaZjM7KEdoOOLiptn qGAn8JBusFTLqyMH3ZYIq oMOnB9IgWWPxTZ6ylkg3R BM5XGmcLQEcRpC4SVZtwI PqQRIvoHwhVSnzz036EHU 6HwHpYLTxwrZbgEnnqN0x IvZtYCHMcLRnc6ZuBSbxu lPeDJCnN8c0i1ZhfPgyjA 9neSBjYXNlczogQzIzLTA cUkW1FQBYFpTkJAWzUfWt cGFyfQ== CPT Code(s) (test code = p6ntePZuWPHuyYR2LlHsT 3357) BLae8hne0MbdZWmlEXrJA adcDWrnzObfo03rZH7hC4 3YV4bDKNpAuY4RXRswjW0 Jxm8FOKfNBNhxMKkN250f 6zsd7hqyqPkhXM6bXrlLP XczmxxLvB7WVwuCWJprom rNZn5FXwiXNQmfIY8AMUu eKIlE6QgDMMkDD8pxed8D YZ5QTlwHSSrKyF6XKQqyQ JyHSKjdLfaCZfhe491FBH 3GmLiAKMciaGrjOhsbE6j TyTsKZK2DRA6GxqeWRtkJ jSgQPs2WqB7EQSdzx2= CLINICAL DATA (test code f3lfrAPwLXEkjON4CuCmM = 3355) ILnp8dos0XonBIseBPcYR griQGjuoBhzs56tMR2yK9 7FU8oWRHpPbU1VITxfiN4 Zle5KIVrISBsnFCcP280z 3lcs1vqpvJreCA3jZurEI XckrjmTpW4NZjgNOYvxgh kDOn0QVrdWDHkzIF6RFNn sLWgA1QpIQArRK7pmll7J JE7NNgxRCBfMhS6DSUdvH NnSXBxvYpiNHuel735PQD 4VtAoFUSkqaPegLchnN6f LuPtBCC4ISW4Lh8uDTJ5K wLsL26iQFU2yWRbdLryMN DwtswjLWC6XDOvCULcNFZ iyY9yWNIIN5PMHK6cVCMn clE3kT6xlHVkwX4xENAkO nXhEB8cJ8WmU9uqy5YzRA ASZELdfK6fMY5af4XpwRH ob8DqlB8qJGRkHTHlaF5m MF4xYRO0GD79DCOZFIg4x OAcNXKmeG2ey5pwt8CdIk AKUWo1woprii3dsFieYXK eNGOnEFyoweGcb9CdgQv8 KFCgx9NgbQ2mcbo2SPGrF eVqolLwbKzxvWAhIN4nqu 1zbWFsbCBjZWxsIGNhcmN xlx0tOC8mnECjhD== SPECIMEN SOURCE (test d6nfzGXoKKQqpUF8XnLvQ code = 3377) SMzl8uve1WdaXKuhQGcNH ncfQDgczGbfo52yVB6kD9 1NV8rFGAiOsZ7UZYyzaR5 Dgn4DVCiAGRzkJZtS291t 4svy1usvgOclCK9aBpbIQ JruullGmS4HVndSHQzflh dZNj4PPpsRHUypYF8BNWe jRClV1QmPPMnWI4wkal3C JV7CMhsYWPgHmL8GOJszY ZsTFBcpFkdXSatr634YFA 0PxQgJVWgkdBrtJpkwF3s UnJxCISVFU3CTBNCG2CLS CBJTlRFUkxPQkFSLCBMRU XLICCWBTOHFX5WODPqNCW FQlVTIEZOQVxwYXJ9 GROSS DESCRIPTION (test t2phoEDnPFNwrDSLKVSlX code = [id number]) 4bkthWxXVDdwIJhP6Mgns evCFziFL5qJQ5xhPhynDJ ouIOzIX1YYZAjMnHkPOCp cGVydzEyMjQwXHBhcGVya KX1CDHsLF3vanwhFScdLR boXGFinjM2SIFjxUUkP9K rYFXxQQ3qqinvTCG8YTwp xU9dmiXGWncnFx8uiCLxu HtcZjFcZmNoYXJzZXQwXG EqfKusTGKjGUa0fH3DTwe dTXN7YQFTOrakCASeGV1W l3zkLEOleVKoQMO1BVhcx IHmFZZbUAGrUJj6UWOnQT pguPJoSH1xfIubAfimwNk ut5BluZDfODpzETZwZOQt WHdnYCEhNW7QToNaXFnnH rb9ErBgSQm0ZIh9UC9ZWn ZaGJWmPoF3Zht4KgOlORl 0UMpwEE5PVLZ4LQq0RUl8 YTS7DTJxCSPvPXDgOnNwB GYgQXJpYWwgXFxmbCBcXG 2nlPtkyYEvjaYEXwBEeH8 hsMZGg4HrLTUZodQpfeyf KoJtVIXFTNI4HOAJnSO0g R2zDXXgDC8pvQAsEP9RVD UztLBQBCK1XI9nEMMAArp ptCBoKSVzaPaeRJtmrT9n WU1KJMr2jgRoOJAxWeNpB bFcERv7IXBzDdluvSnaTQ mbKVX3rM5sbMLrVLYzOWU pawKeWjPnjBWbY7Bgj54j WEOec3yuPOMyGoBrrqWlO HTrSCLnSSnbLKPjc5EtCZ yNEdzkDVHnkXuaZmxcP1r hfTiqY8PsGCtlZQRjcr1d uTiyKLJ2NQH6WsCdOH0tT DAyLzAyLzIwMjMpICANCl xwbGFpblxlcGljTmVzdER gExNciGridG19JGFqdMOz YYQ6KH8vJCRrrmvgDSOsS XRvPNC3KCucsT31cHNdBX PkLWAidKLdpF4RXGBmTXU 5VXcopJ36zYNtUH4NPMWp LUB1OVEivLDcKSF9CH4xe Q0KfQ== INTRAPROCEDURAL ADEQUACY p6pwkNDnBXCjuVM4DdVxZ (test code = 3370) MEeu6reb9LfhWUdvNGlZK vudUFhoyJgdk44dZA7fE4 6MV6rFSCaThI6BVBezyN1 Pxv1EAYoVZVvfEPgJ617o 7ezu4kigkMaxJC1qSepQH KbwynzSzS4VSdkJLEmlic bYYd6RMujHSIblNZ1XIYb eLWnT3AeQXSzLV5bwwm5B CG1SVjfMTVoElU4CVEayD KrSEUkzDbzVSeim715YUM 2LyXrHXJlkfAbpKmauM9b HkWvWDHQCWYRWY1CGPWqQ INAJO5CICKSV9DVLyfsWD FgEECKO9WaCHNUKWSYPLT xGWVSEO2YAAREDWQUDALK LFwEAR8OYHPKTLVDYHJHH eBgPG2LCSLeIcTyOdQuZn MpXHBhcn0= MICROSCOPIC DESCRIPTION k9egjDIaEXJtrYH5WcNqZ (test code = 3371) LCmw2khu9OimSSujTSaDW hmmTEyvtScaq93rPM0qU7 3PN0lDTZuDaD2MINyluQ2 Mfy8QVVtNGDytMKuD959k 9hht9klvxSnxTG4jFsdLK QpivtkKiI0PDldHJDlkao qCQn2JWmmYXKswDO4MRTl qSMoF4EePQAuPA0fqmq1R QP4IPalHKOkBvK1MLWbrR HtFZHrwRssPOwgd759WIY 0PeSgGVJexgIpsYqvmE2f EjFfKCIAKVOox1ZsUFYuI HBhclxwYXJkXHBhcn0= Gross assessment was [facility] performed at (Formerly [facility], = 2777) Department of Pathology, [address] [place] [address], Technical component was [facility] performed at ([facility], = 2778) Department of Pathology, [address] [place] [id number], Professional component [facility] was performed at ([facility], code = 2779) Department of Pathology, [address] [place] [id number], [facility] [id number] 13:35:13 Test Item Value Reference Range Interpretation Comments Case Report (test code = Medical Cytology 104) Report Case: [id number] Authorizing Provider: Izabela Galvan Jr., Collected: 07/13/2022 02:10 PM Ordering Location: [facility] Received: 07/13/2022 02:43 PM PERIOPERATIVE SERVICES Pathologist: Lopez Dick MD Specimen: Lymph Node, Interlobar, Left, Station 11L DIAGNOSIS (test code = [id number] 3220) GFuZzEwMzNcZnRuYmpcdW MxIHtccnRmMVxlcGljOTY fTlbhaiJqPQCvsPFtT3Ta jxkoEYrnZK5gDM3njPkhf PDdmOKjZYSrErChh2bzf2 51qUCme1xaCOCXnwzwwAh 9oHvmL37yy7W2UeykR98f aFExOXO3ELIuZSQfbBCvL WIlNFS9WJNuuHHbS0xaZY AzFB4ahpxwTYofVIikBSE lxHE6ZOHihWCoD7TwLXUo FSrdFJNgpyt6KlMtEt4rq GVyeTcyMFxwYXJkXHBsYW luXGZzMjAgTFlNUEggTk9 ERSwgTEVGVCBJTlRFUkxP KnHRXVGTMJXFI94aKGUAR CBFQlVTIEZOQSAoRElSRU IOQETMJMVJRoDEPxUjZ2A YTBJOMS5NCds4BNHojrFi JQHfVJ8HF0VYHDZTGJSRT gRAKOwMYSZMDMDCMS0JLP xKHqDDV8hcHDUkqyKcWQU tIEJFTklHTiBBTlRIUkFD L5CJBzZEHB4UEHVUK4ORR IWUCXfRNQ9GWw3fDIQrak 54BKE3LxCjj9Y7KHX7RBA jRTJoj9riLWLkzXDjZbGb MzNcZnRuYmpcdWMxXGRlZ cHwd9afb924iXQjb0yeAC FoErA6wIVdSVCnnPRnY48 3JESvZDicf2ioc7YgDSWs oGEdq2O4IBTGoobtpUx1h OmsJ99bz5H1XfrhP5unHZ XsDBSlG1QhMM6pVLCxWdd 7UZA6HBI5MGSvOSUjS5As QA1zCCBxeEQcITu2n1osd TyqSGZvTNI2o4cwVQwpet XfXM2pgg8jsCe7f3rkgbE cTYVuYJVfkBCVPNVeC1Gr pBisHn2mqJh8rCefOyfdX AK3Tsi7YA1epm91jpt4dY pbYBRhxbkcRqL0DYxhIBA goyetBMy2ROneKLOmeUO8 DWRgeNTjT0AzKSGgBS1dk bx9EBR7AQzyPOFuHlD0NU UdqLWuAWWnaSdkBOagp19 0OPH0YpNsGY3aA3Dbs3D6 fP8trNOzOUXgyZRrBtHcD FUqwh1frVOgZJhbg5KgYN R6cbM1gSTjbCTdBOYkFtR 7LFpwHL7qld95GYOiMOZ0 sb0qiTEnxXheloJcrNOcZ UibG1YoVHMhb670PWGoW4 AeIAEko4L4idTdQqJsBLQ tfDO8ewK8ZRHsBU3rvzni v9poGOwmRYdzBPMctlL4t pT1QESbbTXeW3QdkO5kCD YbMC1efpriw0zsXVK6IBc hZNQsSDV8VoDuMTEyr9Wh mrv1GcKsg8ZqtDOoEBnlX 78xz879JNXxxcFsB7lbxY FpblxwbGFpblxmMFxmczI 0XHFsXGxhbmcxMDMzXGhp I1etLbKuDHWlaAcvZQfop 2NoXGYxXGZzMjJcdGFiXH ToYcp0XAAbyMRiLRXkZgM hX0bigqigNcVYTSWmh9bw Y0zfeSSEjYKnJ8HoWIfsr kInYDgyJFzwDrStORg5VA 29AaZhNWKdep40 COMMENT (test code = c2nluERhNKKtoGV4RdDvN 3359) YFpy6lvr2FweEThcVJmEV yhiURrpiDbha19vVA3eF3 3CP9dLJArFoT5YUUcvmP0 Gyv4JNApALHxfQLlQ570p 6sno4ynqdCpzJG9aWeyTM QpfxvvQwO4BEhwFQKlgqs yGMm6ZMryQUVryQQ2JJZz uZRaZ2EhUEWeQF7kvhi5F LV7GYchNXGyTrY7LSDpzL ZtVKTkcTrcEVzfh652GIC 7SnCrJSHytbLkvFwspL7g VqOlLFWJvBZhg4UqRXchk sXaVDGjA7t1d3IxcVhevZ 9neSBjYXNlczogQzIzLTA dEfQ1LDPUKuNfKPSkZjVw cGFyfQ== CPT Code(s) (test code = j4kuvPPkZPYdbOO2KdVaC 3357) RRnb7sam6OouTHkvDFtGK bazZTagvGkej51nRC1hI6 5VN6bQXKoXaB6QDYlhxX4 Zfl6PRLxRWNgcVMmU140t 7riu6wdrsGixTZ3rAbpLI IybdqiWjX3IFtwYSYhafh zHLp6HImcVBAtuYS9LOWc hNXvT3TfDEQqEN2mvnd2J OD1DQlvFBSjRnR1KTZymF XaYEJpqQifDWhnm680PJH 1LdBwTUJixvCalSgayX1a XhOuPMF5GLS2WrmeFEyyQ qNmYZd2PlF6UKFttz2= CLINICAL DATA (test code s6nbaSLrBWQziUO5OeNpG = 3355) LLln2vlq9EglJSbpCQgOT cqaJVnklPaku59vGN8aL5 6GF8oIDPiHhH0BNPdtoI1 Tcj4OYLaJPMsuCFbG281k 0kyz9rhhgKzjII8sRatVU MdgahsMvS0IMthVMGmrlx mMGp3YKztXRCjjWB6WPHn lLIyO8IwMSPkDI9yxlv7L TQ2XWagGAWrAaE7QYSgbB DeUBUcwQhrNZwzd978XEY 9EiGuNEUutzDrxNnoxO4f TiJkNTI6LQX3Zs1hGLM1G nBqI89cWRR5kGFoeMzyXG FrxwqiIJZ1AJFbMOSjXKT gtT8jNOQUV0XROO9qFCZm tyJ5kO2fcYQcoR6jUXSqL fAoFY0rC8RjF5qzi0JaFP GRZCGcwM7dFT5fa3BkfPN fd5EdkC7qWUElXHWqcB0a VK9iBFH2PJ99TCOPAUw7u CRkQFShbF7bo6cxg5TmZd JMBLp7jepcsx4sfFzyGUR oAGPkIUjugwMbz7UkqMu6 GWKpp2AnqH1fybi6SKSkZ jJsyrNylFqecTAvJB9ezn 1zbWFsbCBjZWxsIGNhcmN bbq5pSK3puSExvX== SPECIMEN SOURCE (test x0pxqOGtVLBuyDY9CxPtK code = 3377) YDmr7uwz6CsaCKimSVeJZ jpaDJrjfPtto69fFI2qE0 9HR2yEEQlBwK9BSDgdsP2 Lej6UBCmNSPfwMZmN450y 1cfo0oiwlZmoWJ7xPamFZ XtmqczHsH9EOfpWPMgwzr yVIl0RNjxVYTvjYH4TBRe gGMfK1IvZAWxTJ2dkkx2N EO7PVcfSOMnBbE2JWNqbO OgEPXjyLzqZPftx541SPK 9RyGuLWHdnpPteJvdmP9w LxHhTGAENQ1DPVDQU7TVU CBJTlRFUkxPQkFSLCBMRU BQURFVKGTDNB7ZTPJlQHW FQlVTIEZOQVxwYXJ9 GROSS DESCRIPTION (test w6ttcFJeWXJzoENWFHTzQ code = [id number]) 6yusaTiHMNvgJVsV4Nxcw fgLWmzDI8wCT8ogAiizYZ emYCyEG4COJPrKuOeAGJw cGVydzEyMjQwXHBhcGVya OC0BGFmTO0jyuvlEEklWF waTRVhfpJ5RVHjsFVfC7N vIRVrWY9eumguIXR1GKte cX5oycHLJfkpUf7jcPCcs HtcZjFcZmNoYXJzZXQwXG UjeGzfNKAnLDa3sA9OQhw kYXV5KVUUXuefHWRyTR4X z2swXNDvrQUaMDQ8LGttu LIjWHXvXRNlSJc6DWZaCR kfwMSxBB9hvXroZlmcsSa sv8BorYTxAVsxCZJrAYEt AYplZKEqSW3CJePlLWqsX vk1AjZlQTc7CSs4LE5JUr IeQUVyOqS6Yys1SpMkDFu 9CGnxXR2QJBW4YRf5CCr5 MTM1STNwYODoTSDjYvRrF GYgQXJpYWwgXFxmbCBcXG 7csVxuwKWqeaNPBvQFxQ6 abETPc7GkNUOEbiZgdetr MyUtAAAYJIB4CCZPpAP9y L4rIZCxIS8wkWTeBX9ETY QvtEOTZWN3DB9nPYPCFgd frOCgWZWkoArcJRlxfO1z OV1TPIu8syCyXXThXnQwP vXlXSs2AAJaVcjxdAvgRR ylGTW4cO0ikJSuUTVfYQE fydSqMeKbbANcE6Lpz58d IEEgh5daXJZkGbVukvBtE RQjCAEuIFjhOGNve0JsHW zXWudiMRZanEkkGzymF5o ypMkdK8KcPEhaEMKzrz6j iGpyEPS0FHS4AwKfFM3sY DAyLzAyLzIwMjMpICANCl xwbGFpblxlcGljTmVzdER iMtLnyVkqmH59EBWeeDZh FNC2TH1sLWJealghOZFfL GVaVSO1OVfymP82eZZrKP CzXEVuhTKqgE4YSUWyFEW 6VXbtlQ32yFFcOG3XFHSl IXI8MSYxjLRoJAL2FF5gz Q0KfQ== INTRAPROCEDURAL ADEQUACY l8csjCVgWOWtoLJ7BaOkX (test code = 3370) XWej0zfh3JtvFTtqUPwOO fiiRGryhTccz38uTO8lQ2 7SY9oJUHcEiG7XCXekeT7 Kxk7YGKwCSFqmTCqR533t 0edw0wjpjMdgXL7sIejDQ AtlbmgRkK2KNiuYQWtvch nHAj3KVjzMGYixBH6ICVz vUAuS6NdYIFjDZ3zcjm1S HA4IQmoGQGqWdP6SNWfmF JyCXPdwLuvZDviq822WYS 3FhIhYDAitbUynRsujQ3r DiLpRKBDPERPHW1ZASYiO UDSAG8FDDLJV5MUTbqcVL HwSKKOM6ArKSQPYGIHYGM nEIYPPJ6JZJAUHNQATIIK DDaVYW8NLRASGCHYVHCFA yGdTX7HOVEfGfPzWuTsId MpXHBhcn0= MICROSCOPIC DESCRIPTION g2umbWTvYQHqxKH0VdKrE (test code = 3371) WHgk5lcg9AtaRTfrPYmKC haqHQhcrYfxv13oCE6iH6 5ZZ2hBCWcFlK3BZSsklZ2 Ykt1WJFnFIAjfRLnN908i 8amn7ruheUbuKB9sEsfFX VxcovqKaJ0QSzaBNRrkwb kPBe7DRkmIODvzPV5CQSy xPLzR1GoDYKtTZ9vgax1W TW1MDpwLUBjGeL8OUEbbI NtMTUnmNgiVZfdv893FYW 8EiOxQXPxxxQypMeigV2u BjGtCFHNIKLlr0WtZMKsI HBhclxwYXJkXHBhcn0= Gross assessment was [facility] performed at (test code [facility], = 2777) Department of Pathology, [address] [place] [address], Technical component was [facility] performed at ([facility] code [facility], = 2778) Department of Pathology, [address] [place] [address] [phone], Professional component [facility] was performed at ([facility], code = 2777) Department of Pathology, [address] [place] [address], [facility] by [id number] 13:35:13 Test Item Value Reference Range Interpretation Comments Case Report (test code = Medical Cytology 104) Report Case: [id number] Authorizing Provider: Izabela Galvan Jr., Collected: 07/13/2022 02:10 PM Ordering Location: [facility] Received: 07/13/2022 02:43 PM PERIOPERATIVE SERVICES Pathologist: Lopez Dick MD Specimen: Lymph Node, Interlobar, Left, Station 11L DIAGNOSIS (test code = q8wulEBrQFRst4mdRNAtm 3220) GFuZzEwMzNcZnRuYmpcdW MxIHtccnRmMVxlcGljOTY hMsxvjrYzTTOxsINlV0Sq xphsKEooEA9vRW6ssJszi DLjuCZvNNGePmPqe0hfw2 60sFRex2mhVLWCjmgmvSl 2aGtoF70tt5V9ZiyyT31l tKHkMOJ8IKWsYOKtzVBbD ZJyBWS0SPDftNOhP0ycSB XaEF2ucxxkXKsaKZtbFMD cgEC8SEVbgBCgQ6KjIDLf GNcfTCJcywm2DiSjVx0ro GVyeTcyMFxwYXJkXHBsYW luXGZzMjAgTFlNUEggTk9 ERSwgTEVGVCBJTlRFUkxP DgJEKVARGJJFK16nDVWYH CBFQlVTIEZOQSAoRElSRU SXRFSMOSDIQeMHXvUiP6H AOVOFAG6CPwg9IQAvvyAg BQEiCC9TW1EXZFNJROESN aQUFTmPFIGJWBASUO4PUZ uPOtRNR2epTKWphuCdBMW tIEJFTklHTiBBTlRIUkFD G6OAYwWXXC9VJHMBC9JZG WMHUGcORN7XHv0aVEIbmu 13AFO3TcQjc1Y7THH8NCC kBUDdh4zsXAGjjSZmVzSf MzNcZnRuYmpcdWMxXGRlZ dEsw4jwv017dDQob8pfRQ PiDaK4sYDkFCIdjZOlY38 0CYUmCSyga0uax8YaYVEl zBIwn6L2YFFChmtlvNn2u TxyV50kn1Q9FigvA7gwBI TjGCHfH3DpNT4cIZBiJgq 4CQU9GRM0JJOpNQDoA3Ob VP3zWSEwzNKzQYw9b0zke RsdTQPlPZB6y9xwNMxoxk AaNM4jgw4yxPq1i7rzukT sXBKlFAKqvWXVTFKcB9Qh gBjaMl2ylXu1xTvnQjwfK PK4Zlb6CQ4fad58lso7wM eiZXQtcbdzMcC0CFobBIP rnbqpNOm7DNdxGIHhkRX7 HCNuuGPzG0MtSUGmKL7mt tq3JNO6WBpuNHPdSvT1LX IdiXTtRXSfeAibKIcqo97 6NBF1NuCnWW3oI2Ddj5Y5 yH2trLMiBZQhzIRvSgBxE OLnge6qkPUoFYqcx8OoBM O9ypY6jYCyoZWgDIMpTwT 2FAwjHU4dpg02VDFcGWH6 mr0khQMocDpcdmRhmMHsU XkfS5SiDSSux348RTKhE9 ClQWWdm2H8mzMtDhWiARV dmTT1wuP1OWXbPK6anthm i9dwAJsjZFsbAZOgrbB0x kK0UWRxpPSeL5YagA4kBA IkZA9aeqvwu3ipXEA2AEd xHAByMDK0MeCbIFEtc4Cv csn0QkUxa8OxvZTxDUfsZ 71gj639ROWkqcVjS2jwjJ FpblxwbGFpblxmMFxmczI 0XHFsXGxhbmcxMDMzXGhp M4utByPbEOPsbWhpHYmit 2NoXGYxXGZzMjJcdGFiXH UmTeu0FHHhlWDhWYZeMkS uQ3vdsoveAfWJCHBll2zo Y8pyyBFJePNkO9FoFWejl wMbLQbcXJbdQhBtCDp5ME 73KeKvSKWmwz34 COMMENT (test code = f5xmqLGtBFLhnNJ7IxTdB 3359) PAnz8kuk7QfhZRqlGIzBJ pzsMMovcKxsv49qRI1yL6 3UW9vSYAmPmH3BECkdvK1 Top0RTCjJYVehRTyJ145z 9cxj5yjosLfvMV2aBhlNL LeufyuKiR7ZJncWDUgvvl hZHi3WHqkDGYaiXY4NCYo gQVhY4ZgTLMvLH8befi3P YA9LXoqDHTbRjC5LFSqyK DpWMWfmVldPVylz393UUP 8IlPkPDLqhmVhtJiasD8v AsYyHOHRkPPpw6CuWAyys nLxCWMnV6e5w5WlxDefeB 9neSBjYXNlczogQzIzLTA dUhU2RLHWKpXdWTHgRrKv cGFyfQ== CPT Code(s) (test code = g5xudNVlPRPirDA5JhMdX 3357) KQbs3twt8AazLCrvLVpAP svmVCnphOumh63lLW7rB2 2XZ6cCANvFjO3YNGhtzJ2 Tgn0LKKwSMBktPGuE221e 7axt7uuslWbaGU4cClhSF ClkzwaAfP6YTttATLxrky wPRr8CVnhYTNnaMX2SNMz gFPhV6IyPXYkJW9ennm4S RH6TSntWVKqMhG3NUPdaC FxXTRtzQmeVNyiq214XOY 7PgYkWHFiwfTegIhtxB5o BjIkXCG1DDZ6CbuaBYqjP tZwKWj2VqK0QDTqvy5= CLINICAL DATA (test code z4ojeCYvAERhdRY8MoTwU = 3355) WChh0flq7CqeLKueOFwLQ yjvRIvfyFsyb17lCT7zC9 6FK7nSEUzJcI3DJUnrlW9 Fiy2ZDKoHYBzfISiE309x 7fyv1fuhfTwjXP2dCdhEH OubzldNrC7HItlITUbbtg zTPi0FJvhZNBrzHH7DRPh fKPuH0ViJTTxSX7ulft0S TI9DRsyJIEtMbV8LHYorP LvVCWgfZrnWEihq083HOA 8JxGhZGHbrwQkgRskqA1s GhPiZKO5HBG7Ii1qOXV6S uYiR67nXKA7lFArbNowFN GyyhwgZEN8OKEfSLWkYCE xkG5aGDZSZ5AOLU8zGHQs kiU4yY4cqDWglL1cFWVgA yQvAK5mC3LmZ6crq5TaQE TABPSvlI4sQW8yl3EqjZT jg9ChgT6zQSKrXJLrfF4f GI1jHBD7PX52NAMCSSi2a EAtVNBonD2kj6lke0QeJt YQXHa3ivhbid4zfMejVFR xCHZiEUzybtNuu2RuiGt8 WLKdr3QypN5bpwb7NSZoP dAszoGedCatlLEzWR0lnd 1zbWFsbCBjZWxsIGNhcmN kxm0hYP8phWIasO== SPECIMEN SOURCE (test m3hwmTSdWJPlaRQ8IpYfM code = 3377) INve2vzq3TgqAQawNYdWL rvhHWjgjTmfd12cXU9vX5 2MN1iPVTgZwQ3OQXrgvY2 Wwx8RHEqAEWmxIEeT044v 0thn4psahRbhRY3yBpyWC RgknthHlQ2HFdtHJSolvx sNTh3IPaoLTEwxPY9JOYu yGOsF7JgVEJjWZ6vpsx4E VH7YXbdDUMjJgN7DYXsiG RfEXMfoXjhHNwiq711IPL 7KoLiQCEabjKttRflgZ2a CyFhNOHLGJ8AAORNF5UVJ CBJTlRFUkxPQkFSLCBMRU BXYBQEVVYSAA4AJVRlNIN FQlVTIEZOQVxwYXJ9 GROSS DESCRIPTION (test v1exgTCdVBTihCUDRQUaA code = [id number]) 5hglpOcILKosCEfJ8Odbq hvNDhyXQ5nTT0hmFxqyAM idSOmRS5OPBHqWiWzKMZb cGVydzEyMjQwXHBhcGVya BW1PNAoRZ0rdzqoTFjzNC daNSXxebX5NSDidCDnR7E oJXJgUC5hfeskPZB7NXqj oJ3jycPHKvbvPg8wtXGui HtcZjFcZmNoYXJzZXQwXG NiiQssURShVGq3hY5RAvi bQXC2PLZCNitpRSHcYB6K w8spNGGnrXKySKF0MGhzy NNwMCYiNTObJSf0LJJjOF nuuIEpJH3mzBumGbdtzHu au8WgrSByLHymCFJdUTIr DOekHGNhNF5XBfVzGRzqT ts8EjJzZJv0XXp2MZ0VMi SrFENxSvG4Ojx6DnAcBFh 1NLvdLH7SETP9IMi6AGu3 RRY1HALvSIYzWRAqPeFvP GYgQXJpYWwgXFxmbCBcXG 2amBmduEQqorWMHsFUiX0 gbOAXs8KpRFTUzcReuzur FpDpRABVFCF0XPEGkCP8n T8qCBGmUM8jkHBzNN3YAG DzsJXMCET5VJ4nRBAKSqs jtVDgVQMqvTdzKGawzN2c PQ0PJIc4qxApXTNsPtKmS lGxWOx9HDYrYhjogBsfJF acCHY9mH0hqDFvWYSkADD xisXlAtXulOYhI9Cks88n DANxa1stFCNnYhRzauCvX SFyVUZsPGovQJAil8RzHD yJWvkvWCSpcAstPcbdD2u rnVwhC8SnCZgqWPKhra7z sAzrWYZ6NJA2QqImNX0nZ DAyLzAyLzIwMjMpICANCl xwbGFpblxlcGljTmVzdER eHbSmuTscrN00VZZdiQTn RMH9IW9wTVTafyllKAOfM DOlJQH0KWojhT58kPBoIA AhKFGxaYJzuX0NPDEoEFA 5YZqllF56dWKyGJ6ZAHVa QBA1FXVyyALaKHD8EO0pu Q0KfQ== INTRAPROCEDURAL ADEQUACY h9yyyUYhZKXuaQJ6NgTvC (test code = 3370) VUky4qcu2UdsPUmkOSsDK kuhTCxjlTzvo18zHZ2zO5 6SZ5kEQWnVcU5IPHtleA5 Qgs7EGTvHBTikGIgF567m 4hmm2rhuwBqrOA4dUuuKS AbipsrJvF7LQvoYRSmfbc gSIt9XBewGPAmsPJ3GNHy iZTyI6HkSRCoPZ2qfst0X EU1SJcoMFZyAcO9ZOXatH VvCJKlsNcuANqjl816WSF 5SpFgSFIxexUsyXhriI7r JeHwYDQPIJMHUK3OGZThC KGVUH7BWQBNA4FYIidfPM NiBOUXJ3DoISTUZHTZCVW hTPHETA8ODAXFZUAXREDI HUaSVA6GZEHOGBWDJQAIR pZoQE2QSHSoWhXrJnZsHb MpXHBhcn0= MICROSCOPIC DESCRIPTION r7bfcCVgYSIddFE7BsHnH (test code = 3371) WBwt2jmw5GxoTKwcYCbAC broBGialMvix20oNA0hX9 5KG8pHAKxWuQ3XUYszlV5 Aeq4TQCqIXJzxSEkF483x 9via1zdlsCdyVL2uWflXN HjtszzRaR7MTlcABCcjwg fSBb3ELunYAUryHR3PJTo tAHkI1AsONWmEH6daur2B HK4OSbkBGFlMnP6FYIdfK GvHHKfdGstGQoxh668TJZ 7MiAwNUPfciTtnWhbvQ5i KiCkHAADCGRdk4IjYIMmA HBhclxwYXJkXHBhcn0= Gross assessment was [facility] performed at ([facility], = 2777) Department of Pathology, [address] [place] [address], Technical component was [facility] performed at ([facility], = 2778) Department of Pathology, [address] [place] [address] 29966, Professional component [facility] was performed at ([facility], code = 2779) Department of Pathology, [address] [place] [address], [facility] BY [id number] 13:35:13 Medical Cytology Report Case: [id number] Authorizing Provider: Izabela Galvan Jr., Collected: 07/13/2022 02:10 PM Ordering Location: [facility] Received: 07/13/2022 02:43 PM PERIOPERATIVESERVICES Pathologist: Lopez Dick MD Specimen: Lymph Node, Interlobar, Left, Station 11L LYMPH NODE, LEFT INTERLOBAR STATION 11L, EBUS FNA (DIRECT SEMARS AND CELL BLOCK): - NEGATIVE FOR EPITHELIAL MALIGNANCY. - BENIGN ANTHRACOTIC LYMPH NODE FRAGMENTS. Signing Pathologist Direct Phone Line: [phone] signed by Lopez Dick MD on 07/14/2022 at 1:35 PMPlease also see cytopathology cases: [id number], [id number], [id number], [id number] y.o M w/ h/o arthritis, anxiety, depression, COVID-19 pneumonia in 05/2021. CT chest RUL lung mass measuring 4.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 Lymph Node, Interlobar, Left, Station 11L.Received 27 mls in cytorichred and 3 direct smear slides; prepared cell block (A2) (cell block placed in formalin at 16:33 on 07/13/2022) STATION 11L LYMPH NODE:- NOT ADEQUATE (REPORTED BY PATHOLOGIST HIRAM Hinton ON 07/13/2022)Performed.[facility], Department of Pathology, [address] [place] [address], [facility], [facility] of [facility]ology, [address] [place] [address], [facility], Department of Pathology, [address] [place] [address], ZZHX NEEDLE ASPIRATE BY [id number] 13:02:23Medical Cytology Report Case: [id number] Authorizing Provider: Izabela Galvan Jr., Collected: 07/13/2022 02:10 PM Ordering Location: [facility] Received: 07/13/2022 02:42 PM PERIOPERATIVESERVICES Pathologist: Lopez Dick MD Specimen: Lymph Node, Lower Paratracheal, Right, Station 4R LYMPH NODE, RIGHT LOWER PARATRACHEAL STATION 4R, EBUS FNA (DIRECT SEMARS AND CELL BLOCK): - NEGATIVE FOR EPITHELIAL MALIGNANCY. - BENIGN ANTHRACOTIC LYMPH NODE FRAGMENTS. Signing Pathologist Direct Phone Line: [phone] signed by Lopez Dick MD on 07/14/2022 at 1:02 PMPlease also see cytopathology cases: [id number], [id number], [id number], [id number], [id number] y.o M w/ h/o arthritis, anxi ety, depression, COVID-19 pneumonia in 05/2021. CT chest RUL lung mass measuring 4.[address] guided biopsy of RUL lung nodule, path was positive for poorly differentiated non-small cell carcinoma.LYMPH NODE, LOWER PARATRACHEAL, RIGHT, STATION 4RA. Lymph Node, Lower Paratracheal, Right, Station 4R.Received 35 mls in cytorich red and 6 direct smear slides; prepared cell block (A2) (cell block placed in formalin at 16:31 on 07/13/2022) STATION 4R LYMPH NODE 3 PASSES):- (RECEIVED 13:36) NOT ADEQUATE (REPORTED BY PATHOLOGIST HIRAM Hinton ON 07/13/2022 2:47 PM)- (RECEIVED 14:13) SCANT LYMPHOID TISSUE PRESENT (REPORTED BY ALICIA GANDHI M.D. ON 07/13/2022 2:47 PM)Performed.[facility], Department of Pathology, [address] [place] [address] 89935, [facility], [facility] of Pathology, [address] [place] [address]97, [facility], Department of Pathology, [address] [place] [address], Djyg Needle Aspirate (EBUS)2022-07-13 16:01:20 Test Item Value Reference Range Interpretation Comments Cytology (test code = See Separate Report 2629) [facility]2022-07-13 16:01:20 Test Item Value Reference Range Interpretation Comments Cytology (test code = See Separate Report 2629) [facility]EBUS[facility]2022-07-13 16:01:20 Test Item Value Reference Range Interpretation Comments Cytology (test code = See Separate Report 2629) [facility] (EBUS)2022-07-13 16:01:20 Test Item Value Reference Range Interpretation Comments Cytology (test code = See Separate Report 2629) [facility]EBUS[facility]2022-07-13 16:01:20 Test Item Value Reference Range Interpretation Comments Cytology (test code = See Separate Report 2629) [facility]EBUS[facility]2022-07-13 16:01:20 Test Item Value Reference Range Interpretation Comments Cytology (test code = See Separate Report 2629) [facility] FNA [id number] 16:01:20 Test Item Value Reference Range Interpretation Comments CYTOLOGY RESULT POINTER See Separate Report (BEAKER) (test code = 2629) EBUS FNA [id number] 16:01:20 Test Item Value Reference Range Interpretation Comments CYTOLOGY RESULT POINTER See Separate Report (BEAKER) (test code = 2629) EBUS FNA [id number] 16:01:20 Test Item Value Reference Range Interpretation Comments CYTOLOGY RESULT POINTER See Separate Report (BEAKER) (test code = 2629) RAD, CHEST, 1 VIEW, NON [id number] 15:54:00Reason for exam:->s/p EBUS, eval for pneumoShould this be performed at the bedside?->Yes [facility] : 1955 Sex: MFINAL REPORT TECHNIQUE: Frontal view of the chest. INDICATION: s/p EBUS, eval for pneumo. COMPARISON: 07/13/2022 at 11:20 AM. FINDINGS: LINES/TUBES: None. HEART AND MEDIASTINUM: Cardiomediastinal contour is within normal limits. LUNGS: Peripheral wedge-shaped opacity within the right upper lobe, unchanged. Chronic interstitial changes, as before. No pulmonary edema. PLEURA: Small bilateral pleural effusions, unchanged. No pneumothorax. SOFT TISSUES AND BONES: Unremarkable. IMPRESSION:No pneumothorax. No significant interval change. Signed: Justin Cottrell [facility] Verified Date/Time: 07/13/2022 15:54:29 RAD, CHEST, 1 VIEW, NON [id number] 11:32:00Reason for exam:->lung noduleShould this be performed at the bedside?->Yes [facility] : 1955 Sex: MFINAL REPORT RAD, CHEST, 1 VIEW, NON DEPT CLINICAL HISTORY: lung nodule TECHNIQUE: Single view of the chest. COMPARISON: None IMPRESSION: Right upper lobe wedge-shaped consolidation and right greater than left bilateral reticular opacities are present. Correlation with CT chest with IV contrast recommended; differential considerations include pneumonia, atelectasis, pulmonary infarct and malignancy. Thickened right paratracheal stripe may indicate mediastinal lymphadenopathy but nonspecific. Cardiomediastinal silhouette is magnified by technique. No pneumothorax. Blunted costophrenic angles may represent pleural thickening versus small pleural effusions. Intact osseous structures. Signed: Hal Burkett [facility] Verified Date/Time: 07/13/2022 11:32:27 POC-Glucose meter 2022-07-13 09:22:03 Test Item Value Reference Range Interpretation Comments POC-Glucose Meter (test 94 mg/dL 70-110 : TE STED AT [facility] code = 1538) [address] [place] [address], [facility] 30: Steelworker/Techni garth ID = [id number] for AIDA RODARTE Lab Interpretation (test Normal code = 60934-5) [facility] [id number] 09:22:03 Test Item Value Reference Range Interpretation Comments POC-Glucose Meter (test 94 mg/dL 70-110 : TE STED AT [facility] code = 1538) [address] [place] [address], [address]70 30: Steelworker/Techni garth ID = [id number] for AIDA RODARTE Lab Interpretation (test Normal code = 65116-3) [facility]-Glucose [id number] 09:22:03 Test Item Value Reference Range Interpretation Comments POC-Glucose Meter (test 94 mg/dL 70-110 : TE STED AT [facility] code = 1538) [address] [place] [address], [address]70 30: Steelworker/Techni garth ID = [id number] for AIDA RODARTE Lab Interpretation (test Normal code = 36101-2) [facility]-Glucose [id number] 09:22:03 Test Item Value Reference Range Interpretation Comments POC-Glucose Meter (test 94 mg/dL 70-110 : TE STED AT [facility] code = 1538) [address] [place] [address], [facility] 30: Steelworker/Techni garth ID = [id number] for AIDA RODARTE Lab Interpretation (test Normal code = 14124-0) [facility]-Glucose [id number] 09:22:03 Test Item Value Reference Range Interpretation Comments POC-Glucose Meter (test 94 mg/dL 70-110 : TE STED AT [facility] code = 1538) [address] [facility] [place], [address]: Steelworker/Techni garth ID = [id number] for AIDA RODARTE Lab Interpretation (test Normal code = 24961-5) [facility]-GLUCOSE [id number] 09:22:03 Test Item Value Reference Range Interpretation Comments POC-GLUCOSE METER 94 mg/dL 70-110 : TESTED A T [facility] 6720 (BEAKER) (test code = [facility], 1538) [id number]: Steelworker/Techni garth ID = [id number] for UNIQUE ClineAIDA COMPREHENSIVE METABOLIC [id number] 13:45:01 Test Item Value Reference Range Interpretation Comments TOTAL PROTEIN 8.4 gm/dL 6.0-8.3 H (BEAKER) (test code = 770) ALBUMIN (BEAKER) 4.0 g/dL 3.5-5.0 (test code = 1145) ALKALINE 92 U/L 40-150 PHOSPHATASE (BEAKER) (test code = 346) BILIRUBIN TOTAL 0.5 mg/dL 0.2-1.2 (BEAKER) (test code = 377) SODIUM (BEAKER) 138 meq/L 136-145 (test code = 381) POTASSIUM (BEAKER) 4.0 meq/L 3.5-5.1 (test code = 379) CHLORIDE (BEAKER) 103 meq/L 98-107 (test code = 382) CO2 (BEAKER) (test 27 meq/L 22-29 code = 355) BLOOD UREA 11 mg/dL 7-21 NITROGEN (BEAKER) (test code = 354) CREATININE 0.71 mg/dL 0.57-1.25 (BEAKER) (test code = 358) GLUCOSE RANDOM 90 mg/dL 70-105 (BEAKER) (test code = 652) CALCIUM (BEAKER) 9.6 mg/dL 8.4-10.2 (test code = 697) AST (SGOT) 27 U/L 5-34 (BEAKER) (test code = 353) ALT (SGPT) 20 U/L 6-55 (BEAKER) (test code = 347) EGFR (BEAKER) 99 Interpretatio n of eGFR (test code = 1092) mL/min/1.[address] age Description sq m Result G1 Leela l or high >=90 G2 Mildly decreased 60-89 G3a Mildl y to moderately 45-5 9 G3b Moderately to s everely 30-44 G4 Severl y decreased 15-29 G5 Kidney failure <15Reported eGF R is based on the CKD-EPI 2020 equation that d oes not use a race coefficientEsti mated GFR is not as accur ate as Creatinine Shagufta rupal in predicting glom erular filtration rate . Estimated GFR is not appl icable for dialysis patien ts Steelworker ID - PIAYA [id number] 13:32:15 Test Item Value Reference Range Interpretation Comments PROTIME (BEAKER) (test 12.9 seconds 11.9-14.2 code = 759) INR (BEAKER) (test 1.03 See_Comment [Automat ed code = 370) message] The sy stem which generated this result transmitted reference range : <=5.90. The reference range was not used to interpret this result as normal/abnormal . PARTIAL THROMBOPLASTIN 25.2 seconds 22.5-36.0 TIME (BEAKER) (test code = 760) RECOMMENDED COUMADIN/WARFARIN INR THERAPY RANGESSTANDARD DOSE: 2.0 - 3.0 Includes: PROPHYLAXIS for venous thrombosis, systemic embolization; TREATMENT for venous thrombosis and/or pulmonary embolus.HIGH RISK: Target INR is 2.5-3.5 for patients with mechanical heart valves.CBC W/PLT COUNT & AUTO [id number] 13:28:04 Test Item Value Reference Range Interpretation Comments WHITE BLOOD CELL COUNT (BEAKER) 6.8 K/ L 3.5-10.5 (test code = 775) RED BLOOD CELL COUNT (BEAKER) 4.74 M/ L 4.63-6.08 (test code = 761) HEMOGLOBIN (BEAKER) (test code = 14.1 GM/DL 13.7-17.5 410) HEMATOCRIT (BEAKER) (test code = 44.2 % 40.1-51.0 411) MEAN CORPUSCULAR VOLUME (BEAKER) 93 fL 79-92 H (test code = 753) MEAN CORPUSCULAR HEMOGLOBIN 29.7 pg 25.7-32.2 (BEAKER) (test code = 751) MEAN CORPUSCULAR HEMOGLOBIN CONC 31.9 GM/DL 32.3-36.5 L (BEAKER) (test code = 752) RED CELL DISTRIBUTION WIDTH 13.1 % 11.6-14.4 (BEAKER) (test code = 412) PLATELET COUNT (BEAKER) (test 320 K/CU MM 150-450 code = 756) MEAN PLATELET VOLUME (BEAKER) 9.0 fL 9.4-12.4 L (test code = 754) NUCLEATED RED BLOOD CELLS 0 /100 WBC 0-0 (BEAKER) (test code = 413) NEUTROPHILS RELATIVE PERCENT 60 % (BEAKER) (test code = 429) LYMPHOCYTES RELATIVE PERCENT 25 % (BEAKER) (test code = 430) MONOCYTES RELATIVE PERCENT 11 % (BEAKER) (test code = 431) EOSINOPHILS RELATIVE PERCENT 3 % (BEAKER) (test code = 432) BASOPHILS RELATIVE PERCENT 0 % (BEAKER) (test code = 437) NEUTROPHILS ABSOLUTE COUNT 4.11 K/ L 1.78-5.38 (BEAKER) (test code = 670) LYMPHOCYTES ABSOLUTE COUNT 1.70 K/ L 1.32-3.57 (BEAKER) (test code = 414) MONOCYTES ABSOLUTE COUNT (BEAKER) 0.78 K/ L 0.30-0.82 (test code = 415) EOSINOPHILS ABSOLUTE COUNT 0.20 K/ L 0.04-0.54 (BEAKER) (test code = 416) BASOPHILS ABSOLUTE COUNT (BEAKER) 0.03 K/ L 0.01-0.08 (test code = 417) IMMATURE GRANULOCYTES-RELATIVE 0.10 % 0.00-1.00 PERCENT (BEAKER) (test code = 0021)
[2022-08-27 21:20] LABS: Absolute Lymphocytes (CBC) 1.4 K/uL (0.7-4.9); Hematocrit 28.2 % (39.6-49.0); Lymphocytes % 9.9 % (15.3-44.8); MCV 88.3 fL (80-100); MPV 7.1 fL (7.6-11.3); RBC Red Blood Cell Count 3.19 M/uL (4.33-5.43)
[2022-08-27 21:41] LABS: Potassium 4.2 mEq/L (3.5-5.1); Troponin High Sensitivity 3.6 pg/mL (<58.9)
--- NOTE | 2022-08-27 22:07 | RAD REPORT ---
EXAM DESCRIPTION: RADChest Single View08/27/2022 9:49 pm CLINICAL HISTORY: DYSPNEA COMPARISON: Chest Single View dated 02/20/2022; Chest Single View dated 06/17/2021; Chest Single View d ated 06/13/2021; ABDOMEN ACUTE SERIES dated 01/09/2012 TECHNIQUE: Portable AP view of the chest. FINDINGS: Progressive consolidative opacities in the right upper and lower lung. Moderate pleural ef fusion on the right. Patchy opacities and interstitial prominence in the left lung is stable. No pneu mothorax. The cardiomediastinal contours are unremarkable. IMPRESSION: Progressive airspace opacities in the right lung with a moderate pleural effusion. Under lying pneumonia should be considered.
--- NOTE | 2022-08-27 22:37 | RAD REPORT ---
EXAM DESCRIPTION: CT - Chest For Pe Angio - 08/27/2022 10:17 pm CLINICAL HISTORY: DYSPNEA COMPARISON: Thorax Wo Con dated 02/01/2022; Thorax Wo Con dated 08/08/2021; Chest Angio dated 06/14/2021 ; Chest Single View dated 08/27/2022; Chest Single View dated 02/20/2022; Lung Biopsy Perc w/CT dated TECHNIQUE: Thin axial CT images of the chest were obtained following administration of 75 mL Isovue 370 IV contrast. Multiplanar reconstructions, and maximum intensity projection reconstructions were g enerated and reviewed. Exam utilizes a protocol for optimal evaluation of pulmonary arterial tree. All CT scans are performed using dose optimization technique as appropriate and may include automated exposure control or mA/KV adjustment according to patient size. FINDINGS: Postsurgical changes of a right upper lobectomy. Loculated right hydropneumothorax anterio rly. Smaller loculated hydropneumothorax along the right posterior costophrenic angle. Patchy ground- glass airspace opacities and interlobular septal thickening throughout the remainder of the right mor e than left lung suggestive of hypoventilation with mild congestion and chronic background changes se en previously. Dependent confluent opacities with air bronchogram on the right that could represent atelectasis, although superimposed pneumonia cannot be entirely excluded. Pulmonary arteries are normal. No emboli or other suspicious finding. No acute or significant aorta f indings. No pneumothorax or sizable effusion on the left. Mildly prominent mediastinal lymph nodes, the largest in the subcarinal region, measuring 1.[address] in short axis. These are nonspecific and could be reactive. No chest wall mass or abnormal axilliary lymphadenopathy. IMPRESSION: No evidence of acute central pulmonary emboli. Postsurgical changes of right upper lobectomy, with loculated right hydropneumothorax components, the largest present anteriorly as above. Patchy airspace opacities bilaterally more pronounced within th e remainder of the right lung. The findings are favored to reflect postoperative changes. Please baron elate with surgical findings and recent postoperative imaging if available.
[2022-08-27 23:06] LABS: Protime INR 1.1
[2022-08-27 23:17] LABS: Albumin 1.7 g/dL (3.4-5.0); Bilirubin Total 0.2 mg/dL (0.2-1.0); Protein, Total 7.1 g/dL (6.4-8.2)
--- NOTE | 2022-08-27 23:33 | EDPHYS ---
Physician Documentation [facility] Name: Ye Coleman Age: 67 yrs Sex: Male : 1955 Arrival Date: 08/27/2022 Time: 20:51 Bed 13 Private MD: ED Physician Den Chavez HPI: 08/27 21:43 This 67 yrs old Male presents to ER via EMS with complaints of Shortness of ms3 breath. 21:43 67-year-old male with past medical history of lung cancer and neuropathy presents via ms3 was [facility] for dyspnea. Patient had right upper lobectomy on August 15, 2022 for lung cancer. Patient is currently on 4 L home oxygen. EMS noted patient's room air oxygen saturation to be 93%. EMS noted patient's oxygen saturation did drop to 88% on 4 L when walking to the stretcher. Patient denies pain at this time. Patient denies alleviating or inciting factors.. Historical: - Allergies: 20:58 No Known Allergies; eh3 - Home Meds: 20:58 amoxicillin 875 mg Oral tablet 2 times per day [Active]; eh3 20:58 gabapentin 100 mg oral capsule 3 times per day [Active]; furosemide 20 mg Oral tablet 2 eh3 times per day [Active]; oxycodone 5 mg Oral capsule every 4 hours for pain [Active]; - PMHx: 20:58 Lung cancer; Neuropathy; eh3 - PSHx: 20:58 Appendectomy; Partial lobectomy - right upper lobe; eh3 - Immunization history:: Adult Immunizations up to date. - Social history:: Smoking status: unknown. ROS: 21:43 Constitutional: Negative for fever, and chills. Neck: Negative for injury, pain, and ms3 swelling, Cardiovascular: Negative for chest pain, and palpitations. 21:43 Respiratory: Positive for dyspnea on exertion, shortness of breath. 21:43 All other systems are negative. Exam: 21:31 ECG was reviewed by the Attending Physician. ms3 21:43 Constitutional: This is a well developed, well nourished patient who is awake, alert, ms3 and in no acute distress. Head/Face: Normocephalic, atraumatic. Neck: Trachea midline, no cervical lymphadenopathy. Supple, full range of motion without nuchal rigidity, or vertebral point tenderness. No Meningismus. Cardiovascular: Regular rate and rhythm with a normal S1 and S2. No gallops, murmurs, or rubs. Normal PMI, no JVD. No pulse deficits. Respiratory: Lungs have equal breath sounds bilaterally, clear to auscultation and percussion. No rales, rhonchi or wheezes noted. No increased work of breathing, no retractions or nasal flaring. MS/ Extremity: Pulses equal, no cyanosis. Neurovascular intact. Full, normal range of motion. 21:43 Chest/axilla: Inspection: Right lateral chest significant for dressing with no drainage or surrounding erythema. Right back significant for incision without erythema, drainage, dehiscence.. Vital Signs: 20:53 BP 111 / 63; Pulse 97; Resp 18; Temp 98.3(O); Pulse Ox 99% on 4 lpm NC; Weight 70 kg; 3 Height 5 ft. 4 in. ; 22:00 BP 114 / 68; Pulse 94; Resp 15; Pulse Ox 98% on 4 lpm NC; 3 22:30 BP 115 / 71; Pulse 92; Resp 13; Pulse Ox 100% on 4 lpm NC; 3 23:30 BP 119 / 65; Pulse 94; Resp 19; Pulse Ox 97% on R/A; 3 08/28 01:00 BP 111 / 63; Pulse 89; Resp 18 S; Temp 98.9(O); Pulse Ox 100% on 2 lpm NC; as6 08/27 20:53 Body Mass Index 26.49 (70.00 kg, 162.56 cm) [facility] MDM: 08/27 20:55 Patient medically screened. ms3 21:43 Differential diagnosis: Myocardial Infarction pneumonia, Pneumothorax pulmonary edema. ms3 22:46 ED course: CT chest without IV contrast from [facility] on August showed postoperative changes in the right upper lobectomy. Interval development of moderate hydropneumothorax. Infection/empyema cannot be excluded. 2. Unchanged subpleural reticulations, cystic change and honeycombing, left greater than right, likely reflecting interstitial lung disease including UIP. 3. Scattered groundglass nodules in the lungs measuring up to 8 mm continuation on follow-up imaging. Patient CBC on August 25, 2022 showed white blood count of 13.2, hemoglobin 10.6, hematocrit 33.5, platelets 548.. 23:06 ED course: Dr Roney christianson- Cardiothroacic surgery at [facility]. ms3 08/28 00:18 ED course: Discussed case with Resident, Ho, and he will reach out to CV attending to ms3 determine plan of care.. 00:23 ED course: Discussed case with Ho. Dr Edilson Gnosalez accepts patient to the floor ms3 on the CV surgery service.. 00:24 Data reviewed: vital signs, nurses notes, lab test result(s), EKG, radiologic studies, ms3 and as a result, I will discharge patient. Consideration of Admission/Observation Will transfer patient to [facility]. Management of patient was discussed with the following: Fur Blowing Machine Attendant: Ho, resident with CV surgery service. I considered the following discharge prescriptions or medication management in the emergency department Medications were administered in the Emergency Department. See MAR. Independent interpretation of the following test(s) in the Emergency Department hall monitor: rate is 91 beats/min, Rhythm is normal sinus rhythm, regular, with no ectopy, Interpretation: normal rate, normal rhythm. Counseling: I had a detailed discussion with the patient and/or guardian regarding: the historical points, exam findings, and any diagnostic results supporting the discharge/admit diagnosis, lab results, radiology results, the need to transfer to another facility, for higher level of care, [facility] does not immediately have the required specialist. ED course: Discussed necessity for transfer with patient. Patient understands agrees with plan. All questions were answered. Patient has remained in stable condition while in the emergency department.. 08/27 20:56 Order name: Basic Metabolic Panel; Complete Time: 21:42 ms3 08/27 20:56 Order name: CBC with Diff; Complete Time: 21:42 ms3 08/27 20:56 Order name: Troponin HS; Complete Time: 21:42 ms3 08/27 22:33 Order name: Blood Culture Adult (2) 3 08/27 22:33 Order name: CMP; Complete Time: 23:26 3 08/27 22:33 Order name: Lactate w/ 2H reflex if indic.; Complete Time: 23:26 3 08/27 22:33 Order name: Protime (+inr); Complete Time: 23:26 ms3 08/27 22:33 Order name: Ptt, Activated; Complete Time: 23:26 ms3 08/27 22:59 Order name: Glucose, Ancillary Testing; Complete Time: 23:26 EDMS 08/28 00:29 Order name: SARS RAPID rv1 08/28 00:43 Order name: SARS-COV-2 Antigen Rapid EDMS 08/27 20:56 Order name: XRAY Chest (1 view); Complete Time: 22:32 ms3 08/27 21:48 Order name: CT Chest For PE Angio; Complete Time: 22:39 ms3 08/27 20:56 Order name: EKG; Complete Time: 20:57 ms3 08/27 20:56 Order name: Cardiac monitoring; Complete Time: 21:21 ms3 08/27 20:56 Order name: EKG - Nurse/Tech; Complete Time: 21:21 ms3 08/27 20:56 Order name: IV Saline Lock; Complete Time: 21:21 ms3 08/27 20:56 Order name: Labs collected and sent; Complete Time: 21:21 ms3 08/27 20:56 Order name: O2 Per Protocol; Complete Time: 22:00 ms3 08/27 20:56 Order name: O2 Sat Monitoring; Complete Time: 22:00 ms3 08/27 22:33 Order name: Accucheck; Complete Time: 22:52 ms3 08/27 22:33 Order name: IV Saline Lock - Large Bore; Complete Time: 22:34 ms3 08/27 22:33 Order name: Vital Signs; Complete Time: 22:37 ms3 EC/19 21:31 Rate is 98 beats/min. Rhythm is regular. QRS Pitman is Normal. HI interval is normal. QRS ms3 interval is normal. Clinical impression: Normal ECG. Interpreted by me. Reviewed by me. Administered Medications: 23:53 Drug: vancoMYCIN IVPB 1 grams Route: IVPB; Infused Over: 2 hrs; Site: left forearm; [facility] 08/28 02:00 Follow up: Response: No adverse reaction; IV Status: Completed infusion; IV Intake: as6 250ml Disposition Summary: 08/27/22 23:33 Transfer Ordered Transfer Location: [facility] ms3 Reason: Higher level of care ms3 Condition: Stable ms3 Problem: new ms3 Symptoms: are unchanged ms3 Accepting Physician: Dr Gonsalez(08/28/22 02:03) as6 Diagnosis - Shortness of breath ms3 - Hemopneumothorax ms3 - Cellulitis of right upper limb ms3 Forms: - Medication Reconciliation Form ms3 - SBAR form ms3 Signatures: Dispatcher [employer] EDGary Burgos, FREQUENCY CHECKER-C FREQUENCY CHECKER-Cla1 Den Chavez, DO ms3 Deandre Escamilla RN RN as6 Belinda Burr RN RN 3 Corrections: (The following items were deleted from the chart) 08/27 21:15 20:58 Home Meds: gabapentin 100 mg oral capsule every day at bedtime; [place] [id number] 21:15 20:58 Home Meds: furosemide 20 mg Oral tablet 2 times per day; [place] [id number] 08/28 00:23 08/27 23:33 Dr shultz ms3 08/28 02:03 00:23 Dr Gonsalez ms3 as6
--- NOTE | 2022-08-27 23:33 | ER ---
Nurse's Notes [facility] Name: Ye Coleman Age: 67 yrs Sex: Male : 1955 Arrival Date: 08/27/2022 Time: 20:51 Bed 13 Private MD: Diagnosis: Shortness of breath;Hemopneumothorax;Cellulitis of right upper limb Presentation: 08/27 20:53 Chief complaint: EMS states: family called EMS reporting pt SOB when walking to [facility] bathroom, had part of right upper lobe removed at [facility] on August 15 due to lung cancer. On 4L O2 via NC at home and maintains above 95% O2 sat at rest. EMS reports 93% sat on room air at rest, and 88% sat on 4L NC after walking from bed to stretcher. Coronavirus screen: Vaccine status: Patient reports receiving the 2nd dose of the covid vaccine. Ebola Screen: No symptoms or risks identified at this time. Initial Sepsis Screen: Does the patient meet any 2 criteria? No. Patient's initial sepsis screen is negative. Does the patient have a suspected source of infection? No. Patient's initial sepsis screen is negative. Risk Assessment: Do you want to hurt yourself or someone else? Patient reports no desire to harm self or others. Onset of symptoms was August 27, 2022. 20:53 Method Of Arrival: EMS: [place] [id number] 20:53 Acuity: EDMOND 3 3 Triage Assessment: 20:58 General: Appears in no apparent distress. uncomfortable, Behavior is calm, cooperative, eh3 appropriate for age. Pain: Denies pain. Neuro: Level of Consciousness is awake, alert, obeys commands, Oriented to person, place, time, situation. Cardiovascular: Capillary refill < 3 seconds Patient's skin is warm and dry. Respiratory: Airway is patent Respiratory effort is even, labored, Respiratory pattern is regular. GI: Abdomen is round non-distended. : No signs and/or symptoms were reported regarding the genitourinary system. Derm: Wound noted RAC phlebitis. Musculoskeletal: No signs and/or symptoms reported regarding the musculoskeletal system. Historical: - Allergies: 20:58 No Known Allergies; 3 - Home Meds: 20:58 amoxicillin 875 mg Oral tablet 2 times per day [Active]; eh3 20:58 gabapentin 100 mg oral capsule 3 times per day [Active]; furosemide 20 mg Oral tablet 2 eh3 times per day [Active]; oxycodone 5 mg Oral capsule every 4 hours for pain [Active]; - PMHx: 20:58 Lung cancer; Neuropathy; eh3 - PSHx: 20:58 Appendectomy; Partial lobectomy - right upper lobe; eh3 - Immunization history:: Adult Immunizations up to date. - Social history:: Smoking status: unknown. Screenin:53 [facility] ED Fall Risk Assessment (Adult) Score/Fall Risk Level 0 - 2 = Low Risk. Abuse eh3 screen: Denies threats or abuse. Denies injuries from another. Nutritional screening: No deficits noted. Tuberculosis screening: No symptoms or risk factors identified. Assessment: 20:53 Reassessment: No changes from previously documented assessment. See triage assessment. 3 22:00 Reassessment: Patient appears in no apparent distress at this time. Patient and/or 3 family updated on plan of care and expected duration. Pain level reassessed. Patient is alert, oriented x 3, equal unlabored respirations, skin warm/dry/pink. 23:00 Reassessment: Patient appears in no apparent distress at this time. Patient and/or 3 family updated on plan of care and expected duration. Pain level reassessed. Patient is alert, oriented x 3, equal unlabored respirations, skin warm/dry/pink. 08/28 01:00 Reassessment: Patient appears in no apparent distress at this time. as6 Vital Signs: 08/27 20:53 BP 111 / 63; Pulse 97; Resp 18; Temp 98.3(O); Pulse Ox 99% on 4 lpm NC; Weight 70 kg; 3 Height 5 ft. 4 in. ; 22:00 BP 114 / 68; Pulse 94; Resp 15; Pulse Ox 98% on 4 lpm NC; eh3 22:30 BP 115 / 71; Pulse 92; Resp 13; Pulse Ox 100% on 4 lpm NC; 3 23:30 BP 119 / 65; Pulse 94; Resp 19; Pulse Ox 97% on R/A; 3 08/28 01:00 BP 111 / 63; Pulse 89; Resp 18 S; Temp 98.9(O); Pulse Ox 100% on 2 lpm NC; as6 08/27 20:53 Body Mass Index 26.49 (70.00 kg, 162.56 cm) eh3 ED Course: 08/27 20:51 Patient arrived in ED. rv1 20:53 Belinda Burr, RN is Primary Nurse. eh3 20:53 Patient has correct armband on for positive identification. Bed in low position. Call eh3 light in reach. Side rails up X2. Client placed on continuous cardiac and pulse oximetry monitoring. NIBP monitoring applied. Door closed. Noise minimized. Lights dimmed. Warm blanket given. 20:53 Maintain EMS IV. Dressing intact. Good blood return noted. Site clean \T\ dry. Gauge \T\ eh 3 site: 18g LFA. 20:54 Den Chavez DO is Attending Physician. ms3 20:57 Triage completed. eh3 20:58 Arm band placed on. eh3 21:51 XRAY Chest (1 view) In Process Unspecified. EDMS 22:19 CT Chest For PE Angio In Process Unspecified. EDMS 22:52 CMP Sent. eh3 22:52 Lactate w/ 2H reflex if indic. Sent. eh3 22:52 Protime (+inr) Sent. eh3 22:52 Ptt, Activated Sent. eh3 23:55 Inserted saline lock: 22 gauge in left forearm, using aseptic technique. oe 08/28 00:43 SARS RAPID Sent. rv1 02:00 No provider procedures requiring assistance completed. Patient transferred, IV remains as6 in place. Administered Medications: 08/27 23:53 Drug: vancoMYCIN IVPB 1 grams Route: IVPB; Infused Over: 2 hrs; Site: left forearm; [facility] 08/28 02:00 Follow up: Response: No adverse reaction; IV Status: Completed infusion; IV Intake: as6 250ml Medication: 00:02 VIS not applicable for this client. as6 Intake: 02:00 IV: 250ml; Total: 250ml. as6 Outcome: 08/27 23:33 ER care complete, transfer ordered by . ms3 08/28 02:00 Transferred by ground EMS to [facility], Transfer form completed. as6 X-rays sent w/ patient. Condition: stable Instructed on the need for transfer. 02:03 Patient left the ED. as6 Signatures: Dispatcher [employer] EDMS CantuKing mak Marcus, DO DO ms3 Deandre Escamilla RN RN as6 Belinda Burr RN RN eh3 Brandy Angulo 1 Corrections: (The following items were deleted from the chart) 08/27 21:15 20:58 Home Meds: gabapentin 100 mg oral capsule every day at bedtime; [place] [id number] 21:15 20:58 Home Meds: furosemide 20 mg Oral tablet 2 times per day; [place] [id number] 08/28 01:37 01:00 BP 111 / 163; Pulse 89bpm; Resp 18bpm; Spontaneous; Pulse Ox 100% 2 lpm Nasal as6 Cannula; Temp 98.9F Oral; as6
[2022-08-27] MEDS ORDERED: VANCOMYCIN 1 GM/VIAL ONE (23:39)
[2022-08-27] MEDS ORDERED: NA CHLORIDE 0.9% 250 ML ONE (23:40)
[2022-08-28 01:00] LABS: SARS-CoV-2 Antigen Rapid Res Negative (Negative)
[2022-08-28 09:07] VITALS: BP 111/63; TEMP 98.9; O2SAT 100
== END 2022-08-28 02:03 | disposition short-term general hospital (02) ==
LOC: ER 20:49
DX: J94.2 Hemothorax (principal); Z20.822 Contact with and (suspected) exposure to COVID-19; Z85.118 Personal history of other malignant neoplasm of bronchus and lung; Z90.2 Acquired absence of lung [part of]; Z98.890 Other specified postprocedural states
CPT/HCPCS: 93005; 87040 ×2; 85025; 80048; 36415 ×2; 85610; 82947; 83605; 85730; 84484; 80053; 71275; 71045; 87811; Q9967; J7050

== ENCOUNTER 2023-03-30 12:30 | Emergency (ER) | payer OTHER ==
--- OUTSIDE RECORDS SUMMARY | 2023-03-30 12:38 | XMS REPORT | Continuity of Care Document ---
:1955 Author Organization [facility] t Address [address] [place] [address] [place] [id number] Care Team Providers Name Role Phone MAURI, PHONG Nabila Primary Care Physician Unavailable IZABELA GALVAN Attending Clinician Unavailable FRANCISCO ROSENBERG Attending Clinician Unavailable GEORGIA VIEIRA K.HTang Attending Clinician Unavailable Isha AMANDA, [place] K.H. Attending Clinician Wallace AMANDA, Anupama Attending Clinician Izabela Galvan MD Attending Clinician King Elkins MD Attending Clinician Iraj AMANDA, Lauro Love Attending Clinician Francisco Rosenberg Attending Clinician Marco AMANDA, Rohan Guo Attending Clinician Jesús Larsen Attending Clinician Unavailable IZABELA GALVAN Admitting Clinician Unavailable ANUPAMA GONSALEZ Admitting Clinician Unavailable Payers Payer Name Policy Type Policy Number Effective Date Expiration Date Elis tiwari [employer] [id number] 2021 00:00:00 MEDICAID [facility] [id number] 2022 00:00:00 [employer]/C DUAL [id number] 2022 COMP HMO D SNP 00:00:00 Problems Condition Condition Condition Status Onset Resolution Last Treating Co mments Source Name Details Category Date Date Treatment Clinician Date Shortness Shortness Disease Active Uni vers of breath of breath 3-20 ity of 00:00: [address] Branch Lung Lung Disease [facility]ur[facility] 00:00: [address] RUL NSCLC RUL NSCLC Disease Recurre [facility] s/p R s/p R nce 2[facility]02 [facility] thoracotom thoracotom 00:00: Me dical y, RUL/RML y, RUL/RML 00 Ce nter bilobectom bilobectom y, MLND y, MLND 08/15/2022 08/15/2022 Malignant Malignant Disease Active 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 00:00: [place] lobe of lobe of 00 Medical right lung right lung Br anch Allergies, Adverse Reactions, Alerts Allergy Allergy Status Severity Reaction(s) Onset Inactive Treating Comm ents Source Name Type Date Date Clinician NO KNOWN Drug Active [facility] ALLERGIE Class ity of S [facility] NO KNOWN Allergy Active [facility] St ALLERGIE [facility] Social History Social Habit Start Date Stop Date Quantity Comments Source History [facility]Med [facility] History of tobacco Cigarette Smoker [facility] use Medical Center History [facility] 2022-08-28 2022-08-[address] [facility] Housing Unable to 00:00:00 00:00:00 Medical Center Pay History [facility] 2022-08-28 2022-08-[address] [facility] Housing Places 00:00:00 00:00:00 Medical Ce nter Lived History [facility] 2022-08-28 2022-08-[address] [facility] Housing Homeless 00:00:00 00:00:00 Medical Center Last Year History [facility] 2022-08-15 2022-08-[address] [facility] Transport Med 00:00:00 00:00:[address] Alcohol intake 2022-08-15 2022-08-15 1.71 /d [facility] 00:[facility]00 Medical Center Exposure to 2022-08-04 2022-08-[address] [facility] SARS-CoV-2 (event) 00:00:00 20:08:00 [facility] Cigarettes smoked 2022-07-052022-07-05 [facility] current (pack per 00:00:00 00:00:00 Medical Center day) - Reported Tobacco use and 2022-07-05 2022-07-[address] [facility] exposure 00:00:00 00:00:00 tobacco non-user [facility] Tobacco Comment 2022-07-05 2022-07-05 quit- [address] [facility] 00:00:00 00:00:00 Medical Center Sex [birth year] Univers[facility] of 00:00:00 00:00:00 [facility] Smoking Status Start Date Stop Date Source Tobacco smoking [facility] xa consumption unknown Medical Bran ch Ex-smoker 2022-07-05 00:00:00 2022-07-05 [facility] Medical 00:00:00 Center Medications Ordered Filled Start Stop Current Ordering Indication Dosage Frequency Signature Comments Components Source Medication Medication Date Date Medication? Clinician (SIG) Name Name Ibuprofen-D Yes [id number] 1{tbl} Take 1 Univers iphenhydram 6-21 tablet by ity of ine HCl 10:53: mouth [place] 200-25 mg 26 every Medical Cap evening. Branch Ibuprofen-D Yes [id number] 1{tbl} Take 1 Univers iphenhydram 6-21 tablet by ity of ine HCl 10:53: mouth [place] 200-25 mg 26 every Medical Cap evening. Branch ibuprofen/d 2022- No Take by Un wagner iphenhydram 6-21 06-21 mouth. ity o f ine cit 10:51: 00:00 [place] (IBUPROFEN 22 :00 Medical PM ORAL) Branch ibuprofen/d 2022- No Take by Un wagner iphenhydram 6-21 06-21 mouth. ity o f ine cit 10:51: 00:00 [place] (IBUPROFEN 22 :00 Medical PM ORAL) Branch aspirin 81 Yes [id number] 81mg Take 1 Univers mg EC 6-21 tablet by ity of tablet 10:50: mouth [place] 18 every Medical other day. Branch aspirin 81 Yes [id number] 81mg Take 1 Univers mg EC 6-21 tablet by ity of tablet 10:50: mouth [place] 18 every Medical other day. Branch DULoxetine Yes 30mg QD Take 1 [facility] (CYMBALTA) 3-23 capsule [facility] 30 MG 14:38: (30 mg Medical capsule total) by Center mouth in the morning. aspirin 325 2023-0 Yes 325mg Q.5W Take [address] MG tablet 3-23 tablet [facility]ukes 14:38: (325 mg Medical total) by Center mouth twice a week. multivitami 2023-0 Yes 1{tbl} QD Take [address] n per 3-23 tablet by Lukes tablet 14:38: mouth in Medical 09 the Center morning. DULoxetine 2023-0 Yes 30mg QD Take 1 [facility] (CYMBALTA) 3-23 capsule [facility] 30 MG 14:38: (30 mg Medical capsule total) by Center mouth in the morning. aspirin 325 2023-0 Yes 325mg Q.5W Take [address] MG tablet 3-23 tablet Lukes 14:38: (325 mg Medical total) by Center mouth twice a week. multivitami 2023-0 Yes 1{tbl} QD Take [address] n per 3-23 tablet by Lukes tablet 14:38: mouth in Medical 09 the Center morning. DULoxetine 2023-0 Yes 30mg QD Take 1 [facility] (CYMBALTA) 3-23 capsule [facility] 30 MG 14:38: (30 mg Medical capsule total) by Center mouth in the morning. aspirin 325 3-0 Yes 325mg Q.5W Take [address] MG tablet 3-23 tablet Lukes 14:38: (325 mg Medical total) by Center mouth twice a week. multivitami 3-0 Yes 1{tbl} QD Take [address] n per 3-23 tablet by Lukes tablet 14:38: mouth in Medical 09 the Center morning. vancomycin 3-0 2023- No 1000mg Inject [facility] (VANCOCIN) -31 08-23 1,000 mg Luke s 1000 mg in 07:15: 00:00 intravenou Medical D5W 100 ML 29 :00 sly. Center MBP vancomycin 3-0 2023- No 1000mg Inject [facility] (VANCOCIN) -31 08-23 1,000 mg Luke s 1000 mg in 07:15: 00:00 intravenou Medical D5W 100 ML 29 :00 sly. Center MBP vancomycin 2022-2022- No 1000mg Inject [facility] (VANCOCIN) 08-31 1,000 mg Luke s 1000 mg in 07:15: 00:00 intravenou Medical D5W 100 ML 29 :00 sly. Center [facility] furosemide 2022- No 20mg QD Take [address] (LASIX) 20 08-31-30 tablet (20 [facility] MG tablet 00:00: 23:59 mg total) Me dical 00 :00 by mouth Center in the morning for 7 days. sulfamethox 2022-2022- No 160mg{t Q.5D Take [address] azole-trime 08-31 rimetho tablet [facility] thoprim 00:00: 23:59 prim} (160 mg of Me dical (BACTRIM 00 :00 trimethopr Cente r DS) 800-160 im total) mg per by mouth tablet in the morning and 1 tablet (160 mg of trimethopr im total) before bedtime. Do all this for 7 days. furosemide 2022-0 2022- No 20mg QD Take [address] (LASIX) 20 08-3130 tablet (20 [facility] MG tablet 00:00: 23:59 mg total) Me dical 00 :00 by mouth Center in the morning for 7 days. sulfamethox 2022-0 2022- No 160mg{t Q.5D Take [address] azole-trime 08-3130 rimetho tablet [facility] thoprim 00:00: 23:59 prim} (160 mg of Me dical (BACTRIM 00 :00 trimethopr Cente r DS) 800-160 im total) mg per by mouth tablet in the morning and 1 tablet (160 mg of trimethopr im total) before bedtime. Do all this for 7 days. furosemide 2022-2022- No 20mg QD Take [address] (LASIX) 20 08-31-30 tablet (20 [facility] MG tablet 00:00: 23:59 mg total) Me dical 00 :00 by mouth Center in the morning for 7 days. sulfamethox 2022-2022- No 160mg{t Q.5D Take [address] azole-trime 3-23 03-30 rimetho tablet [facility] thoprim 00:00: 23:59 prim} (160 mg of Me dical (BACTRIM 00 :00 trimethopr Cente r DS) 800-160 im total) mg per by mouth tablet in the morning and 1 tablet (160 mg of trimethopr im total) before bedtime. Do all this for 7 days. furosemide 2022- No 20mg QD Take [address] (LASIX) 20 08-26- tablet (20 [facility] MG tablet 00:00: 00:00 mg total) Me dical 00 :00 by mouth Center daily for 3 days. furosemide 0 2022- No 20mg QD Take [address] (LASIX) 20 08-26- tablet (20 [facility] MG tablet 00:00: 00:00 mg total) Me dical 00 :00 by mouth Center daily for 3 days. furosemide 0 2022- No 20mg QD Take [address] (LASIX) 20 08-26 tablet (20 [facility] MG tablet 00:00: 00:00 mg total) Me dical 00 :00 by mouth Center daily for 3 days. furosemide 0 2022- No 20mg QD Take [address] (LASIX) 20 08-26- tablet (20 [facility] MG tablet 00:00: 23:59 mg total) Me dical 00 :00 by mouth Center daily for 3 days. DULoxetine Yes 30mg QD Take [address] (CYMBALTA) 3-17 by mouth [facility]ukes 30 MG 18:34: daily. Medical capsule 39 Center aspirin 325 0 Yes 325mg Q.5W Take [address] MG tablet 3-17 mg by Lukes 18:34: mouth Medical 39 twice a Center week. multivitami 0 Yes 1{tbl} QD Take [address] n per 3-17 tablet by Lukes tablet 18:34: mouth Medical 39 daily. Center lidocaine 2022-0 2022- No 1{patch Place 1-[address] (LIDODERM) 3-17 03-31 } patches [facility]ukes 4 % patch 00:00: 23:59 onto the Med ical 00 :00 skin daily Center as needed (pain) for up to [address] directly over any incisions. lidocaine 2022-2022- No 1{patch Place 1-[address] (LIDODERM) 08-25 } patches [facility] 4 % patch 00:00: 23:59 onto the Med ical 00 :00 skin daily Center as needed (pain) for up to [address] directly over any incisions. lidocaine 2022-0 2022- No 1{patch Place 1-[address] (LIDODERM) 08-25 } patches [facility] 4 % patch 00:00: 23:59 onto the Med ical 00 :00 skin daily Center as needed (pain) for up to [address] directly over any incisions. lidocaine 2022-2022- No 1{patch Place 1-[address] (LIDODERM) 08-25 } patches [facility]ukes 4 % patch 00:00: 23:59 onto the Med ical 00 :00 skin daily Center as needed (pain) for up to [address] directly over any incisions. acetaminoph 2022- No 1000mg Take [address] en 08-25 tablets [facility]ukes (TYLENOL) 00:00: 23:59 (1,000 mg Me dical 500 MG 00 :00 total) by Center tablet mouth every 6 (six) hours as needed for Pain for up to 10 days. amoxicillin 2022- No 1{tbl} Q.5D Take [address] -clavulanat 08-25 tablet by Ruby kes e 00:00: 23:59 mouth 2 Medical (AUGMENTIN) 00 :00 (two) Center 875-125 mg times per tablet daily for 10 days. oxyCODONE 2022- No 5mg Take 1 [facility] (ROXICODONE 08-25 tablet (5 [facility] ) 5 MG 00:00: 23:59 mg total) Medic al immediate 00 :00 by mouth Center release every 4 tablet (four) hours as needed for up to 10 days. Max Daily Amount: 30 mg acetaminoph 2022- No 1000mg Take [address] en -25 08-27 tablets [facility]ukes (TYLENOL) 00:00: 23:59 (1,000 mg Me dical 500 MG 00 :00 total) by Center tablet mouth every 6 (six) hours as needed for Pain for up to 10 days. amoxicillin 2023-0 2023- No 1{tbl} Q.5D Take [address] -clavulanat 3-17 03-27 tablet by Ruby kes e 00:00: 23:59 mouth 2 Medical (AUGMENTIN) 00 :00 (two) Center 875-125 mg times per tablet daily for 10 days. oxyCODONE 2023-0 2023- No 5mg Take 1 [facility] (ROXICODONE 3-17 03-27 tablet (5 [facility]es ) 5 MG 00:00: 23:59 mg total) Medic al immediate 00 :00 by mouth Center release every 4 tablet (four) hours as needed for up to 10 days. Max Daily Amount: 30 mg acetaminoph 2023-0 2023- No 1000mg Take [address] en 3-17 03-27 tablets [facility]ukes (TYLENOL) 00:00: 23:59 (1,000 mg Me dical 500 MG 00 :00 total) by Center tablet mouth every 6 (six) hours as needed for Pain for up to 10 days. amoxicillin 3-0 2023- No 1{tbl} Q.5D Take [address] -clavulanat 3-17 03-27 tablet by Ruby kes e 00:00: 23:59 mouth 2 Medical (AUGMENTIN) 00 :00 (two) Center 875-125 mg times per tablet daily for 10 days. oxyCODONE 2023-0 2023- No 5mg Take 1 [facility] (ROXICODONE 3-17 03-27 tablet (5 [facility] ) 5 MG 00:00: 23:59 mg total) Medic al immediate 00 :00 by mouth Center release every 4 tablet (four) hours as needed for up to 10 days. Max Daily Amount: 30 mg acetaminoph 2023-0 2023- No 1000mg Take [address] en 3-17 03-27 tablets [facility]ukes (TYLENOL) 00:00: 23:59 (1,000 mg Me dical 500 MG 00 :00 total) by Center tablet mouth every 6 (six) hours as needed for Pain for up to 10 days. amoxicillin 2023-0 2023- No 1{tbl} Q.5D Take [address] -clavulanat 3-17 03-27 tablet by Ruby kes e 00:00: 23:59 mouth 2 Medical (AUGMENTIN) 00 :00 (two) Center 875-125 mg times per tablet daily for 10 days. oxyCODONE 2022- No 5mg Take 1 [facility] (ROXICODONE 08-25 tablet (5 Ruby [facility]es ) 5 MG 00:00: 23:59 mg total) Medic al immediate 00 :00 by mouth Center release every 4 tablet (four) hours as needed for up to 10 days. Max Daily Amount: 30 mg gabapentin 2022-2022- No 100mg Q.[id number] Take [address] (NEURONTIN) 08-25 [id number] capsule [facility]ukes 100 MG 00:00: 23:59 3D (100 mg Medical capsule 00 :00 total) by Center mouth 3 (three) times daily for 7 days. polyethylen 2022-2022- No 17g Take [address] e glycol 08-25 by mouth [facility]ukes (GLYCOLAX) 00:00: 23:59 daily as Me dical 17 gram 00 :00 needed Center packet (constipat ion) for up to 7 days. gabapentin 2022-0 2022- No 100mg Q.[id number] Take [address] (NEURONTIN) 08-25 [id number] capsule [facility]ukes 100 MG 00:00: 23:59 3D (100 mg Medical capsule 00 :00 total) by Center mouth 3 (three) times daily for 7 days. polyethylen 2022-0 2022- No 17g Take [address] e glycol 08-25 by mouth [facility]ukes (GLYCOLAX) 00:00: 23:59 daily as Me dical 17 gram 00 :00 needed Center packet (constipat ion) for up to 7 days. gabapentin 2022-0 2022- No 100mg Q.[id number] Take [address] (NEURONTIN) 08-25 [id number] capsule [facility]ukes 100 MG 00:00: 23:59 3D (100 mg Medical capsule 00 :00 total) by Center mouth 3 (three) times daily for 7 days. polyethylen 2022-0 2022- No 17g Take [address] e glycol 08-2524 by mouth [facility]ukes (GLYCOLAX) 00:00: 23:59 daily as Me dical 17 gram 00 :00 needed Center packet (constipat ion) for up to 7 days. gabapentin 2022- No 100mg Q.[id number] Take [address] (NEURONTIN) 08-25 [id number] capsule [facility]ukes 100 MG 00:00: 23:59 3D (100 mg Medical capsule 00 :00 total) by Center mouth 3 (three) times daily for 7 days. polyethylen 2022- No 17g Take [address] e glycol 08-2524 by mouth [facility] (GLYCOLAX) 00:00: 23:59 daily as Me dical 17 gram 00 :00 needed Center packet (constipat ion) for up to 7 days. DULoxetine Yes 30mg QD Take [address] (CYMBALTA) 3-06 by mouth [facility] 30 MG 20:05: daily. Medical capsule 52 [place] aspirin 325 0 Yes 325mg Q.5W Take [address] MG tablet 3-06 mg by Lukes 20:05: mouth Medical 52 twice a Center week. multivitami 0 Yes 1{tbl} QD Take [address] n per 3-06 tablet by Lukes tablet 20:05: mouth Medical 52 daily. [place] DULoxetine Yes 30mg QD Take [address] (CYMBALTA) 2-02 by mouth [facility] 30 MG 16:28: daily. Medical capsule 00 [place] aspirin 325 0 Yes 325mg Q.5W Take [address] MG tablet 2-02 mg by Lukes 16:28: mouth Medical 00 twice a Center week. multivitami 0 Yes 1{tbl} QD Take [address] n per 2-02 tablet by Lukes tablet 16:28: mouth Medical 00 daily. [place] DULoxetine 0 Yes 30mg QD Take [address] (CYMBALTA) 2-02 by mouth [facility] 30 MG 16:28: daily. Medical capsule 00 Center aspirin 325 2022-0 Yes 325mg Q.5W Take [address] MG tablet 2-02 mg by Lukes 16:28: mouth Medical 00 twice a Center week. multivitami 0 Yes 1{tbl} QD Take [address] n per 2-02 tablet by Lukes tablet 16:28: mouth Medical 00 daily. [place] DULoxetine 0 Yes 30mg QD Take [address] (CYMBALTA) 2-02 by mouth [facility] 30 MG 16:28: daily. Medical capsule 00 [place] aspirin 325 2022-0 Yes 325mg Q.5W Take [address] MG tablet 2-02 mg by Lukes 16:28: mouth Medical 00 twice a Center week. multivitami 2022-0 Yes 1{tbl} QD Take [address] n per 2-02 tablet by Lukes tablet 16:28: mouth Medical 00 daily. [place] DULoxetine 0 Yes 30mg QD Take [address] (CYMBALTA) 2-02 by mouth [facility] 30 MG 16:28: daily. Medical capsule 00 [place] aspirin 325 2022-0 Yes 325mg Q.5W Take [address] MG tablet 2-02 mg by Lukes 16:28: mouth Medical 00 twice a Center week. multivitami 0 Yes 1{tbl} QD Take [address] n per 2-02 tablet by Lukes tablet 16:28: mouth Medical 00 daily. [place] acetaminoph 2022-0 2023- No 1000mg Take [address] en 2- 02-12 tablets [facility]ukes (TYLENOL) 00:00: 23:59 (1,000 mg Me dical 500 MG 00 :00 total) by Center tablet mouth every 6 (six) hours as needed for Pain for up to 10 days. acetaminoph 2022-0 2022- No 1000mg Take [address] en 2-02 02-12 tablets [facility]ukes (TYLENOL) 00:00: 23:59 (1,000 mg Me dical 500 MG 00 :00 total) by Center tablet mouth every 6 (six) hours as needed for Pain for up to 10 days. acetaminoph 2022-0 3- No 1000mg Take [address] en 2-02 02-12 tablets [facility] (TYLENOL) 00:00: 23:59 (1,000 mg Me dical 500 MG 00 :00 total) by Center tablet mouth every 6 (six) hours as needed for Pain for up to 10 days. acetaminoph 2022-0 2022- No 1000mg Take [address] en 2-02 02-12 tablets [facility] (TYLENOL) 00:00: 23:59 (1,000 mg Me dical 500 MG 00 :00 total) by Center tablet mouth every 6 (six) hours as needed for Pain for up to 10 days. acetaminoph 3-0 2023- No 1000mg Take [address] en 2-02 02-12 tablets [facility] (TYLENOL) 00:00: 23:59 (1,000 mg Me dical 500 MG 00 :00 total) by Center tablet mouth every 6 (six) hours as needed for Pain for up to 10 days. acetaminoph 2022-0 2023- No 1000mg Take [address] en 2-02 02-12 tablets [facility]ukes (TYLENOL) 00:00: 23:59 (1,000 mg Me dical 500 MG 00 :00 total) by Center tablet mouth every 6 (six) hours as needed for Pain for up to 10 days. acetaminoph 2022-0 3- No 1000mg Take [address] en 2- 02-12 tablets [facility]ukes (TYLENOL) 00:00: 23:59 (1,000 mg Me dical 500 MG 00 :00 total) by Center tablet mouth every 6 (six) hours as needed for Pain for up to 10 days. acetaminoph 3-0 3- No 1000mg Take [address] en 2-02 02-12 tablets [facility]ukes (TYLENOL) 00:00: 23:59 (1,000 mg Me dical 500 MG 00 :00 total) by Center tablet mouth every 6 (six) hours as needed for Pain for up to 10 days. acetaminoph 2022-0 3- No 1000mg Take [address] en 2-02 02-12 tablets [facility] (TYLENOL) 00:00: 23:59 (1,000 mg Me dical 500 MG 00 :00 total) by Center tablet mouth every 6 (six) hours as needed for Pain for up to 10 days. Vital Signs Vital Name Observation Time Observation Value Comments Source Systolic blood 2022-11-29 15:46:00 125 mm[Hg] Univer [facility] Diastolic blood 2022-11-29 15:46:00 76 mm[Hg] Unive [facility] Heart rate 2022-11-29 15:46:00 94 /min Universi ty [facility] Respiratory rate 2022-11-29 15:46:00 20 /min [facility] Body height 2022-11-29 15:46:00 165.1 cm Universi ty [facility] Body weight 2022-11-29 15:46:00 63.005 kg Universi ty [facility] BMI 2022-11-29 15:46:00 23.11 kg/m2 [facility] Oxygen saturation in 2022-11-29 15:46:00 93 /min [facility] Arterial blood by [facility] Pulse oximetry Branch HEIGHT 2022-08-28 03:25:56 167.6 cm WEIGHT 2022-08-28 03:25:56 68.04 kg HEIGHT 2022-08-28 03:25:56 167.6 cm WEIGHT 2022-08-28 03:25:56 68.04 kg WEIGHT 2022-08-24 08:00:00 68.6 kg WEIGHT 2022-08-23 08:28:00 62.9 kg WEIGHT 2022-08-22 14:32:00 64.728 kg WEIGHT 2022-08-19 07:54:00 70.9 kg WEIGHT 2022-08-17 04:00:00 73 kg WEIGHT 2022-08-16 06:41:00 74 kg WEIGHT 2022-08-15 17:00:00 73 kg WEIGHT 2022-08-24 08:00:00 68.6 kg WEIGHT 2022-08-23 08:28:00 62.9 kg WEIGHT 2022-08-22 14:32:00 64.728 kg WEIGHT 2022-08-19 07:54:00 70.9 kg WEIGHT 2022-08-17 04:00:00 73 kg WEIGHT 2022-08-16 06:41:00 74 kg WEIGHT 2022-08-15 17:00:00 73 kg HEIGHT 2022-08-09 14:08:00 165.1 cm WEIGHT 2022-08-09 14:08:00 70.171 kg HEIGHT 2022-08-09 14:08:00 165.1 cm WEIGHT 2022-08-09 14:08:00 70.171 kg HEIGHT 2022-07-13 09:12:00 165.1 cm HEIGHT 2022-07-13 08:51:00 165.1 cm WEIGHT 2022-07-13 08:51:00 70.126 kg HEIGHT 2022-07-05 11:17:00 165.1 cm WEIGHT 2022-07-05 11:17:00 69.854 kg HEIGHT 2022-07-13 09:12:00 165.1 cm HEIGHT 2022-07-13 08:51:00 165.1 cm WEIGHT 2022-07-13 08:51:00 70.126 kg HEIGHT 2022-07-05 11:17:00 165.1 cm WEIGHT 2022-07-05 11:17:00 69.854 kg Heart rate 2022-08-31 08:54:00 85 /min [facility] Respiratory rate 2022-08-31 04:33:48 18 /min [facility] Oxygen saturation in 2022-08-31 04:33:48 100 /min [facility] Arterial blood by Medical Ce nter Pulse oximetry Body temperature 2022-08-31 04:32:58 36.61 Tarah [facility] Systolic blood 2022-08-31 04:32:30 122 mm[Hg] [facility] Diastolic blood 2022-08-31 04:32:30 65 mm[Hg] [facility] Body height 2022-08-28 03:25:56 167.6 cm [facility] Body weight 2022-08-28 03:25:56 68.04 kg [facility] BMI 2022-08-28 03:25:56 24.21 kg/m2 [facility] Heart rate 2022-08-25 16:00:00 90 /min [facility] Systolic blood 2022-08-25 15:07:00 117 mm[Hg] [facility] Diastolic blood 2022-08-25 15:07:00 67 mm[Hg] [facility] Body temperature 2022-08-25 15:07:00 36.78 Tarah [facility] Respiratory rate 2022-08-25 15:07:00 18 /min [facility] Oxygen saturation in 2022-08-25 15:07:00 98 /min [facility] Arterial blood by Medical Ce nter Pulse oximetry Body weight 2022-08-24 08:00:00 68.6 kg [facility] BMI 2022-08-24 08:00:00 25.17 kg/m2 [facility] Heart rate 2022-08-15 05:15:00 70 /min [facility] Systolic blood 2022-08-15 05:00:00 127 mm[Hg] [facility] Diastolic blood 2022-08-15 05:00:00 75 mm[Hg] [facility] Body temperature 2022-08-15 05:00:00 36.39 Tarah [facility] Respiratory rate 2022-08-15 05:00:00 16 /min [facility] Oxygen saturation in 2022-08-15 05:00:00 99 /min [facility] Arterial blood by Medical Ce nter Pulse oximetry Body height 2022-08-09 14:08:00 165.1 cm [facility] Body weight 2022-08-09 14:08:00 70.171 kg [facility] BMI 2022-08-09 14:08:00 25.74 kg/m2 [facility] Heart rate 2022-07-13 15:30:00 78 /min [facility] Respiratory rate 2022-07-13 15:30:00 17 /min [facility] Oxygen saturation in 2022-07-13 15:30:00 97 /min [facility] Arterial blood by Medical Ce nter Pulse oximetry Systolic blood 2022-07-13 15:15:00 104 mm[Hg] [facility] Diastolic blood 2022-07-13 15:15:00 67 mm[Hg] [facility] Body temperature 2022-07-13 14:35:00 36.44 Tarah [facility] Body height 2022-07-13 09:12:00 165.1 cm [facility] Body weight 2022-07-13 08:51:00 70.126 kg [facility] BMI 2022-07-13 08:51:00 25.73 kg/m2 [facility] Procedures Procedure Date / Time Performing Clinician Source Performed XR CHEST 1 VIEW PORTABLE / 2022-08-31 07:07:[address] [facility] XR CHEST 1 VIEW PORTABLE / 2022-08-30 08:12:[address] [facility] XR CHEST 1 VIEW PORTABLE / 2022-08-29 07:30:[address] [facility] BASIC METABOLIC PANEL 2022-08-29 03:31:00 Jennifer [facility] CBC W/PLT COUNT & AUTO 2022-08-29 03:31:00 Jennifer [facility] CBC W/PLT COUNT & AUTO 2022-08-29 03:31:00 Jennifer [facility] XR CHEST 1 VIEW PORTABLE / 2022-08-28 07:15:00 Wallace [facility] CBC (HEMOGRAM ONLY) 2022-08-28 05:43:00 [facility] BASIC METABOLIC PANEL 2022-08-28 05:43:00 [facility] PT/APTT 2022-08-25 11:28[facility] / 2022-08-25 07:09[facility] 2022-08-25 04:09:[address] [facility] MAGNESIUM 2022-08-25 04:09[facility] & AUTO 2022-08-25 04:09:00 Boone [facility] CBC W/PLT COUNT & AUTO 2022-08-25 04:09:00 [facility] 2022-08-24 08:59:00 Deanna Jules [facility] XR CHEST 1 VIEW PORTABLE / 2022-08-24 06:56:00 Sondra Shook [facility] BASIC METABOLIC PANEL 2022-08-24 03:53:00 [facility]-08-24 [facility]:53[facility]O 2022-08-24 03:53[facility]00 [facility] & AUTO 2022-08-24 03:53[facility]00 [facility]FF) 2022-08-24 03:53:00 Sondra Shook [facility] XR CHEST 1 VIEW PORTABLE / 2022-08-23 12:17:[address] [facility] XR CHEST 1 VIEW PORTABLE / 2022-08-23 06:57:00 [facility] 2022-08-23 03:39:00 [facility]-08-23 03:39[facility] AUTO 2022-08-23 03:39[facility]00 [facility] & AUTO 2022-08-23 03:39:00 [facility]) 2022-08-23 03:39:00 Sondra Shook [facility] XR CHEST 1 VIEW PORTABLE / 2022-08-22 13:29:00 [facility] / 2022-08-22 08:18:00 Sondra Shook [facility] BASIC METABOLIC PANEL 2022-08-22 04:43:00 [facility]-08-22 04:43[facility]00 [facility] & AUTO 2022-08-22 04:43:00 Sondra Shook [facility] CBC W/PLT COUNT & AUTO 2022-08-22 04:43:00 Sondra Shook [facility] XR CHEST 1 VIEW PORTABLE / 2022-08-21 06:39:00 Sondra Shook [facility] BASIC METABOLIC PANEL 2022-08-21 03:48:[address] [facility] MAGNESIUM 2022-08-21 03:48:00 [facility] & AUTO 2022-08-21 03:48:00 Sondra Shook [facility] CBC W/PLT COUNT & AUTO 2022-08-21 03:48:00 Sondra Shook [facility] XR CHEST 1 VIEW PORTABLE / 2022-08-20 07:28:00 Sondra Shook [facility] BASIC METABOLIC PANEL 2022-08-20 05:04:[address] [facility] MAGNESIUM 2022-08-20 05:04:00 [facility] & AUTO 2022-08-20 05:04:00 Sondra Shook [facility] CBC W/PLT COUNT & AUTO 2022-08-20 05:04:00 Sondra Shook [facility] PREPARE LEUKO-REDUCED RBC 2022-08-19 23:54:[address] [facility] XR CHEST 1 VIEW PORTABLE / 2022-08-19 07:09:00 Sondra Shook [facility] CBC W/PLT COUNT & AUTO 2022-08-19 04:21:00 Sondra Shook [facility] CBC W/PLT COUNT & AUTO 2022-08-19 04:21:00 [facility] 2022-08-19 04:20[facility]00 [facility]19 04:20[facility]00 [facility] LEUKO-REDUCED 2022-08-18 12:30[facility] XR CHEST 1 VIEW PORTABLE / 2022-08-18 08:24:00 [facility] BASIC METABOLIC PANEL 2022-08-18 04:03:00 [facility] MAGNESIUM 2022-08-18 04:03:00 [facility] CBC W/PLT COUNT & AUTO 2022-08-18 04:03:00 [place] [facility] CBC W/PLT COUNT & AUTO 2022-08-18 04:03:00 [place] [facility] POCT-GLUCOSE METER 2022-08-17 17:38:00 Mandy Wray [facility] POCT-GLUCOSE METER 2022-08-17 11:43:00 Izabela Galvan [facility] POCT-GLUCOSE METER 2022-08-17 08:43:00 Mandy Wray [facility] BASIC METABOLIC PANEL 2022-08-17 03:57:00 [facility] 2022-08-17 03:57:00 [facility] CBC W/PLT COUNT & AUTO 2022-08-17 03:57:00 [place] [facility] CBC W/PLT COUNT & AUTO 2022-08-17 03:57:00 Radha [facility] (CELLAVISION MANUAL DIFF) 2022-08-17 03:57:00 [facility] XR CHEST 1 VIEW PORTABLE / 2022-08-17 01:55:00 [place] [facility] POCT-GLUCOSE METER 2022-08-17 00:36:00 Izabela Galvan [facility] POCT-GLUCOSE METER 2022-08-16 17:33:00 Izabela Galvan [facility] POCT-GLUCOSE METER 2022-08-16 11:23:00 Izabela Galvan [facility] BLOOD GAS, ARTERIAL 2022-08-16 03:39:00 Ronaldo Morrison [facility] BASIC METABOLIC PANEL 2022-08-16 03:38:00 [facility] MAGNESIUM 2022-08-16 03:38:00 [facility] CALCIUM, IONIZED 2022-08-16 03:38:00 Magda Avery [facility] CBC W/PLT COUNT & AUTO 2022-08-16 03:36:00 [place] [facility] CBC W/PLT COUNT & AUTO 2022-08-16 03:36:00 Katya Garcia [facility] XR CHEST 1 VIEW PORTABLE / 2022-08-16 00:44:00 [place] [facility] HEMOGLOBIN AND HEMATOCRIT 2022-08-16 00:28:00 Magda Avery [facility] POCT-GLUCOSE METER 2022-08-16 00:28:00 Izabela Galvan [facility] PHOSPHORUS 2022-08-15 16:47:00 Katya Garcia [facility] MAGNESIUM 2022-08-15 16:47:00 [facility] POCT-GLUCOSE METER 2022-08-15 16:46:00 Mandy [facility] XR CHEST 1 VIEW PORTABLE / 2022-08-15 15:31:[address] [facility] CBC (HEMOGRAM ONLY) 2022-08-15 15:27:00 Katya Garcia [facility] BASIC METABOLIC PANEL 2022-08-15 15:27:00 Duncan [facility] PT/APTT 2022-08-15 15:27:00 [facility] CALCIUM, IONIZED 2022-08-15 15:27:00 [facility] 2022-08-15 15:14:00 Izabela Galvan [facility] PREPARE PLASMA 2022-08-15 15:14:00 Izabela Galvan [facility] RRL CRITICAL LABS 2022-08-15 14:12:29 [facility] ([facility],NA,K,H&H,GLUCOSE) Medical C enter CALCIUM, IONIZED 2022-08-15 14:12:29 [facility] BLOOD GAS, ARTERIAL 2022-08-15 14:12:29 [facility] SODIUM NA-STAT LAB 2022-08-15 14:12:29 [facility] POTASSIUM-STAT LAB 2022-08-15 14:12:29 [facility] GLUCOSE-STAT LAB 2022-08-15 14:12:29 [facility] HGB/HCT (H&H) - STAT LAB 2022-08-15 14:12:29 [facility] RRL CRITICAL LABS 2022-08-15 13:12:23 [facility] (ABG,NA,K,H&H,GLUCOSE) Medical C enter CALCIUM, IONIZED 2022-08-15 13:12:23 [facility] LACTIC ACID, ARTERIAL 2022-08-15 13:12:23 [facility] BLOOD GAS, ARTERIAL 2022-08-15 13:12:23 [facility] SODIUM NA-STAT LAB 2022-08-15 13:12:23 [facility] POTASSIUM-STAT LAB 2022-08-15 13:12:23 [facility] GLUCOSE-STAT LAB 2022-08-15 13:12:23 [facility] HGB/HCT (H&H) - STAT LAB 2022-08-15 13:12:23 [facility] RRL CRITICAL LABS 2022-08-15 12:00:14 Magdaleno [facility] (ABG,NA,K,H&H,GLUCOSE) Medical C enter CALCIUM, IONIZED 2022-08-15 12:00:14 [facility] BLOOD GAS, ARTERIAL 2022-08-15 12:00:[facility] 2022-08-15 12:00:14 [facility] POTASSIUM-STAT LAB 2022-08-15 12:00[facility] 2022-08-15 12:00:14 [facility] HGB/HCT (H&H) - STAT LAB 2022-08-15 12:00:14 Magdaleno [facility] RRL CRITICAL LABS 2022-08-15 10:56:45 [facility] es (ABG,NA,K,H&H,GLUCOSE) Medical C enter CALCIUM, IONIZED 2022-08-15 10:56:45 [facility] BLOOD GAS, ARTERIAL 2022-08-15 10:56:45 [facility] SODIUM NA-STAT LAB 2022-08-15 10:56:45 [facility] POTASSIUM-STAT LAB 2022-08-15 10:56:45 [facility] GLUCOSE-STAT LAB 2022-08-15 10:56:45 [facility] HGB/HCT (H&H) - STAT LAB 2022-08-15 10:56:45 [facility] ANESTHESIA EPIDURAL BLOCK 2022-08-15 10:08:39 [facility] I [facility] RRL CRITICAL LABS 2022-08-15 09:50:54 [facility] es (ABG,NA,K,H&H,GLUCOSE) Medical C enter CALCIUM, IONIZED 2022-08-15 09:50:54 [facility] BLOOD GAS, ARTERIAL 2022-08-15 09:50:54 [facility] SODIUM NA-STAT LAB 2022-08-15 09:50:54 [facility] POTASSIUM-STAT LAB 2022-08-15 09:50:54 [facility] GLUCOSE-STAT LAB 2022-08-15 09:50:54 [facility] HGB/HCT (H&H) - STAT LAB 2022-08-15 09:50:54 [facility] TISSUE EXAM 2022-08-15 09:30:00 Mandy Wray [facility] PREPARE RBC 2022-08-15 09:03:00 Mandy Wray [facility] PREPARE PLASMA 2022-08-15 09:03:00 Izabela Galvan [facility] THORACOTOMY 2022-08-15 07:43:00 Izabela Galvan [facility] LOBECTOMY, LUNG, OPEN 2022-08-15 07:43:00 Izabela Galvan [facility] BRONCHOSCOPY 2022-08-15 07:43:00 Izabela Galvan [facility] THORACOSCOPY, WITH 2022-08-15 07:43:00 Izabela Galvan [facility] RESECTION, LUNG, 2022-08-15 07:43:00 Izabela Galvan [facility] THORACOTOMY APPROACH Medical [address] [facility] THORACOTOMY 2022-08-15 07:30:00 Izabela Galvan [facility] LOBECTOMY, LUNG, OPEN 2022-08-15 07:30:00 Izabela Galvan [facility] BRONCHOSCOPY 2022-08-15 07:30:00 Izabela Galvan [facility] THORACOSCOPY, WITH 2022-08-15 07:30:00 Izabela Galvan [facility] RESECTION, LUNG, 2022-08-15 07:30:00 Izabela Galvan [facility] S [facility] THORACOTOMY APPROACH Medical [address] [facility] BASIC METABOLIC PANEL 2022-08-15 03:25:00 Deanna Jules [facility] MAGNESIUM 2022-08-15 03:25:00 Deanna Jules [facility] PHOSPHORUS 2022-08-15 03:25:00 Deanna Jules [facility] SARS-COV2/RT-PCR ([facility] & 2022-08-15 02:18:[address] [facility] REF LABS) [facility] CBC W/PLT COUNT & AUTO 2022-08-15 02:02:00 [facility] & AUTO 2022-08-15 02:02:00 Deanna Jules [facility] CT CHEST WITH IV CONTRAST 2022-08-14 23:02:00 Izaiah Fleming [facility] BASIC METABOLIC PANEL 2022-08-14 21:07:00 Izabela Galvan [facility] CBC W/PLT COUNT & AUTO 2022-08-09 14:07:00 Selvin Olmedo raheel [facility] COMPREHENSIVE METABOLIC 2022-08-09 14:07:00 Honorio [facility] PT/APTT 2022-08-09 14:07:00 Honorio [facility] ABORH, MANUAL 2022-08-09 14:07:00 Honorio [facility] CBC W/PLT COUNT & AUTO 2022-08-09 14:07:00 Honorio [facility] NM LUNG QUANTITATIVE 2022-08-09 12:06:00 Francisco Rosenberg [facility] FUNCTION Medical nter VENTILATION / PERFUSION XR CHEST 1 VIEW PORTABLE / 2022-07-13 15:21:00 Sondra Shook [facility] EBUS FNA REQUEST 2022-07-13 14:10:00 Izabela Galvan [facility] FINE NEEDLE ASPIRATE BY 2022-07-13 14:10:00 Izabela Galvan [facility] EBUS FNA REQUEST 2022-07-13 14:09:00 Izabela Galvan [facility] FINE NEEDLE ASPIRATE BY 2022-07-13 14:09:[address] [facility] BRONCHOSCOPY 2022-07-13 12:36:00 Izabela Galvan [facility] ENDOBRONCHIAL ULTRASOUND, 2022-07-13 12:36:[address] [facility] Center BRONCHOSCOPY XR CHEST 1 VIEW PORTABLE / 2022-07-13 11:20:00 Sondra Shook [facility] ABORH, MANUAL 2022-07-13 09:20:00 Jade Larsen [facility] POCT-GLUCOSE METER 2022-07-13 09:09:00 Izabela Galvan [facility] ECG 12-LEAD 2022-07-10 13:07:30 Honorio [facility] ECG 12-LEAD 2022-07-10 13:07:30 Unknown, [facility] CBC W/PLT COUNT & AUTO 2022-07-10 12:58:00 Honorio [facility] COMPREHENSIVE METABOLIC 2022-07-10 12:58:00 Honorio [facility] PT/APTT 2022-07-10 12:58:00 Honorio [facility] ABORH, MANUAL 2022-07-10 12:58:00 Honorio [facility] CBC W/PLT COUNT & AUTO 2022-07-10 12:58:[address] [facility] Plan of Care Planned Activity Planned Date [...] Cessation Counseling and Screening (12+)] Future Scheduled 2023-02-[address] [facility] 00:00:00 (Season Ended) [code = [facility] INFLUENZA VACCINE (Season Ended)] Future Scheduled 2023-02-[address] [facility] 00:00:00 (Season Ended) [code = [facility] INFLUENZA VACCINE (Season Ended)] Future Scheduled 2023-02-[address] [facility] 00:00:00 (Season Ended) [code = [facility] INFLUENZA VACCINE (Season Ended)] Future Scheduled 2022-06-[address] [...] no IPPE)] Future Scheduled 2022-02-09 INFLUENZA VACCINE (#1) [facility]00 [code = INFLUENZA Medical Ce nter VACCINE (#1)] Future Scheduled 2022-02-09 INFLUENZA VACCINE (#1) [facility] 00:00:00 [code = INFLUENZA Medical Ce nter VACCINE (#1)] Future Scheduled 2022-02-09 INFLUENZA VACCINE (#1) [facility] 00:00:00 [code = INFLUENZA Medical Ce nter VACCINE (#1)] Future Scheduled 2022-02-09 INFLUENZA VACCINE (#1) [facility] 00:00:00 [code = INFLUENZA Medical Ce nter VACCINE (#1)] Future Scheduled 2022-02-09 INFLUENZA VACCINE (#1) [facility] 00:00:00 [code = INFLUENZA Medical Ce nter VACCINE (#1)] Future Scheduled 2022-02-09 INFLUENZA VACCINE (#1) [facility] 00:00:00 [code = INFLUENZA Medical Ce nter VACCINE (#1)] Future Scheduled [address] [facility] 00:00:00 aneurysm screening Medical C enter (procedure) [code = 541259784] Future Scheduled [address] [facility] 00:00:00 aneurysm screening Medical C enter (procedure) [code = 205569735] Future Scheduled [address] [facility] 00:00:00 aneurysm screening Medical C enter (procedure) [code = 022290673] Future Scheduled [address] [facility] 00:00:00 aneurysm screening Medical C enter (procedure) [code = 183636943] Future Scheduled [address] [facility] 00:00:00 aneurysm screening Medical C enter (procedure) [code = 673547773] Future Scheduled [address] [facility] 00:00:00 aneurysm screening Medical C enter (procedure) [code = 532496792] Future Scheduled [address] [facility] 00:00:00 aneurysm screening Medical C enter (procedure) [code = 037579680] Future Scheduled [address] [facility] 00:00:00 aneurysm screening Medical C enter (procedure) [code = 800790460] Future Scheduled [address] [facility] 00:00:00 aneurysm screening Medical C enter (procedure) [code = 121484354] Future Scheduled 2003 SHINGLES VACCINES ([address] [facility] 00:00:00 2) [code = SHINGLES Medical Center VACCINES (1 of 2)] Future Scheduled 2003 SHINGLES VACCINES ([address] [facility] 00:00:00 2) [code = SHINGLES Medical Center VACCINES (1 of 2)] Future Scheduled 2003 SHINGLES VACCINES ([address] [facility] 00:00:00 2) [code = SHINGLES Medical Center VACCINES (1 of 2)] Future Scheduled 2003 SHINGLES VACCINES ([address] [facility] 00:00:00 2) [code = SHINGLES Medical Center VACCINES (1 of 2)] Future Scheduled 2003 SHINGLES VACCINES ([address] [facility] 00:00:00 2) [code = SHINGLES Medical Center VACCINES (1 of 2)] Future Scheduled 2003 SHINGLES VACCINES ([address] [facility] 00:00:00 2) [code = SHINGLES Medical Center VACCINES (1 of 2)] Future Scheduled 2003 SHINGLES VACCINES ([address] [facility] 00:00:00 2) [code = SHINGLES Medical Center VACCINES (1 of 2)] Future Scheduled 2003 SHINGLES VACCINES ([address] [facility] 00:00:00 2) [code = SHINGLES Medical Center VACCINES (1 of 2)] Future Scheduled 2003 SHINGLES VACCINES ([address] [facility] 00:00:00 2) [code = SHINGLES Medical Center VACCINES (1 of 2)] Future Scheduled 1972 DTAP/TDAP/TD VACCINES [facility]:00:00 (1 - Tdap) [code = Medical C enter DTAP/TDAP/TD VACCINES (1 - Tdap)] Future Scheduled 1972 DTAP/TDAP/TD VACCINES [facility] 00:00:00 (1 - Tdap) [code = Medical C enter DTAP/TDAP/TD VACCINES (1 - Tdap)] Future Scheduled 1972 DTAP/TDAP/TD VACCINES [facility] 00:00:00 (1 - Tdap) [code = Medical C enter DTAP/TDAP/TD VACCINES (1 - Tdap)] Future Scheduled 1972 DTAP/TDAP/TD VACCINES [facility] 00:00:00 (1 - Tdap) [code = Medical C enter DTAP/TDAP/TD VACCINES (1 - Tdap)] Future Scheduled 1972 DTAP/TDAP/TD VACCINES [facility] 00:00:00 (1 - Tdap) [code = Medical C enter DTAP/TDAP/TD VACCINES (1 - Tdap)] Future Scheduled 1972 DTAP/TDAP/TD VACCINES [facility] 00:00:00 (1 - Tdap) [code = Medical C enter DTAP/TDAP/TD VACCINES (1 - Tdap)] Future Scheduled 1972 DTAP/TDAP/TD VACCINES [facility] 00:00:00 (1 - Tdap) [code = Medical C enter DTAP/TDAP/TD VACCINES (1 - Tdap)] Future Scheduled 1972 DTAP/TDAP/TD VACCINES [facility] 00:00:00 (1 - Tdap) [code = Medical C enter DTAP/TDAP/TD VACCINES (1 - Tdap)] Future Scheduled 1972 DTAP/TDAP/TD VACCINES [facility] 00:00:00 (1 - Tdap) [code = Medical C enter DTAP/TDAP/TD VACCINES (1 - Tdap)] Future Scheduled 1971 HEPATITIS C SCREENING [facility]00 [code = HEPATITIS C Medical Center SCREENING] Future Scheduled 1971 HEPATITIS C [facility]CRE[facility]ING [facility]:00:00 [code = HEPATITIS C Medical Center SCREENING] Future Scheduled 1971 HEPATITIS C [facility]CRE[facility]ING [facility]:00:00 [code = HEPATITIS C Medical Center SCREENING] Future Scheduled 1971 HEPATITIS C [facility]CRE[facility]ING [facility]:00:00 [code = HEPATITIS C Medical Center SCREENING] Future Scheduled 1971 HEPATITIS C [facility]CRE[facility]ING [facility] 00:00:00 [code = HEPATITIS C Medical Center SCREENING] Future Scheduled 1971 HEPATITIS C [facility]CRE[facility]ING [facility] 00:00:00 [code = HEPATITIS C Medical Center SCREENING] Future Scheduled 1971 HEPATITIS C [facility]CRE[facility]ING [facility] 00:00:00 [code = HEPATITIS C Medical Center SCREENING] Future Scheduled 1971 HEPATITIS C [facility]CRE[facility]ING [facility] 00:00:00 [code = HEPATITIS C Medical Center SCREENING] Future Scheduled 1971 HEPATITIS C [facility]:00:00 [code = HEPATITIS C Medical Center SCREENING] Future Scheduled 1959 PNEUMOCOCCAL 65+ YRS ([address] [facility] 00:00:00 - PCV) [code = Medical Cente r PNEUMOCOCCAL 65+ YRS (1 - PCV)] Future Scheduled 1959 PNEUMOCOCCAL 65+ YRS ([address] [facility] 00:00:00 - PCV) [code = Medical Cente r PNEUMOCOCCAL 65+ YRS (1 - PCV)] Future Scheduled 1959 PNEUMOCOCCAL 65+ YRS ([address] [facility] 00:00:00 - PCV) [code = Medical Cente r PNEUMOCOCCAL 65+ YRS (1 - PCV)] Future Scheduled 1959 PNEUMOCOCCAL 65+ YRS ([address] [facility] 00:00:00 - PCV) [code = Medical Cente r PNEUMOCOCCAL 65+ YRS (1 - PCV)] Future Scheduled 1959 PNEUMOCOCCAL 65+ YRS ([address] [facility] 00:00:00 - PCV) [code = Medical Cente r PNEUMOCOCCAL 65+ YRS (1 - PCV)] Future Scheduled 1959 PNEUMOCOCCAL 65+ YRS ([address] [facility] 00:00:00 - PCV) [code = Medical Cente r PNEUMOCOCCAL 65+ YRS (1 - PCV)] Future Scheduled 1959 PNEUMOCOCCAL 65+ YRS ([address] [facility] 00:00:00 - PCV) [code = Medical Cente r PNEUMOCOCCAL 65+ YRS (1 - PCV)] Future Scheduled 1959 PNEUMOCOCCAL 65+ YRS ([address] [facility] 00:00:00 - PCV) [code = Medical Cente r PNEUMOCOCCAL 65+ YRS (1 - PCV)] Future Scheduled 1959 PNEUMOCOCCAL 65+ YRS ([address] [facility] 00:00:00 - PCV) [code = Medical Cente r PNEUMOCOCCAL 65+ YRS (1 - PCV)] Future Scheduled 1953 COVID-19 VACCINE (#1) [facility] 00:00:00 [code = COVID-[address] VACCINE (#1)] Future Scheduled 1953 COVID-19 VACCINE (#1) [facility] 00:00:00 [code = COVID-[address] VACCINE (#1)] Future Scheduled 1953 COVID-19 VACCINE (#1) [facility] 00:00:00 [code = COVID-[address] VACCINE (#1)] Future Scheduled 1953 COVID-19 VACCINE (#1) [facility] 00:00:00 [code = COVID-[address] VACCINE (#1)] Future Scheduled 1953 COVID-19 VACCINE (#1) [facility] 00:00:00 [code = COVID-[address] VACCINE (#1)] Future Scheduled 1953 COVID-19 VACCINE (#1) [facility] 00:00:00 [code = COVID-[address] VACCINE (#1)] Future Scheduled 1953 COVID-19 VACCINE (#1) [facility] 00:00:00 [code = COVID-[address] VACCINE (#1)] Future Scheduled 1953 COVID-19 VACCINE (#1) [facility] 00:00:00 [code = COVID-[address] VACCINE (#1)] Future Scheduled 1953 COVID-19 VACCINE (#1) [facility] 00:00:00 [code = COVID-[address] VACCINE (#1)] Future Scheduled 1953 CT Colonography (combo) [facility] 00:00:00 [code = [facility] ([facility] Future Scheduled 1953 Screening for malignant [facility] 00:00:00 neoplasm of colon Medical Ce nter (procedure) [code = 937021487] Future Scheduled 1953 Screening for malignant [facility] 00:00:00 neoplasm of colon Medical Ce nter (procedure) [code = 078054438] Future Scheduled 1953 Screening for malignant [facility] 00:00:00 neoplasm of colon Medical Ce nter (procedure) [code = 700936265] Future Scheduled 1953 Screening for malignant [facility] 00:00:00 neoplasm of colon Medical Ce nter (procedure) [code = 165634044] Future Scheduled 1953 Sigmoidoscopy [code = [facility] S[facility]oscopy] Medical Cent[facility] r Future Scheduled 1953 CT Colonography (combo) [facility] 00:00:00 [code = CT Colonography [facility] (combo)] Future Scheduled 1953 Screening for malignant [facility] 00:00:00 neoplasm of colon Medical Ce nter (procedure) [code = 460955701] Future Scheduled 1953 Screening for malignant [facility] 00:00:00 neoplasm of colon Medical Ce nter (procedure) [code = 541344304] Future Scheduled 1953 Screening for malignant [facility] 00:00:00 neoplasm of colon Medical Ce nter (procedure) [code = 967409448] Future Scheduled 1953 Screening for malignant [facility] 00:00:00 neoplasm of colon Medical Ce nter (procedure) [code = 358220183] Future Scheduled 1953 Sigmoidoscopy [code = [facility] Sigmoidoscopy] Medical Cent[facility] r Future Scheduled 1953 CT Colonography (combo) [facility] 00:00:00 [code = CT Colonography [facility] (combo)] Future Scheduled 1953 Screening for malignant [facility] 00:00:00 neoplasm of colon Medical Ce nter (procedure) [code = 482808280] Future Scheduled 1953 Screening for malignant [facility] 00:00:00 neoplasm of colon Medical Ce nter (procedure) [code = 974011178] Future Scheduled 1953 Screening for malignant [facility] 00:00:00 neoplasm of colon Medical Ce nter (procedure) [code = 974957424] Future Scheduled 1953 Screening for malignant [facility] 00:00:00 neoplasm of colon Medical Ce nter (procedure) [code = 600529964] Future Scheduled 1953 Sigmoidoscopy [code = [facility] Sigmoidoscopy] Medical Cente r Future Scheduled 1953 CT Colonography (combo) [facility] 00:00:00 [code = [facility] ([facility])] Future Scheduled 1953 Screening for malignant [facility] 00:00:00 neoplasm of colon Medical Ce nter (procedure) [code = 002913128] Future Scheduled 1953 Screening for malignant [facility] 00:00:00 neoplasm of colon [facility] (procedure) [code = 711058353] Future Scheduled 1955 Screening for malignant [facility] 00:00:00 neoplasm of colon Medical Ce nter (procedure) [code = 408615552] Future Scheduled 1955 Screening for malignant [facility] 00:00:00 neoplasm of colon Medical Ce [facility] (procedure) [code = 626619799] Future Scheduled 1955 Sigmoidoscopy [facility]code [facility]] [facility] Future Scheduled 1953 CT Colonography (combo) [facility] 00:00:00 [code = CT [facility] Future Scheduled 1953 CT Colonography (combo) [facility] 00:00:00 [code = CT [facility] ([facility] Future Scheduled 1953 Screening for malignant [facility] 00:00:00 neoplasm of colon Medical Ce [facility] (procedure) [code = 412452825] Future Scheduled 1953 Screening for malignant [facility] 00:00:00 neoplasm of colon Medical Ce [facility] (procedure) [code = 471263090] Future Scheduled 1953 Screening for malignant [facility] 00:00:00 neoplasm of colon Medical Ce [facility] (procedure) [code = 676189518] Future Scheduled 1953 Screening for malignant [facility] 00:00:00 neoplasm of colon [facility] (procedure) [code = 488691407] Future Scheduled 1955 Sigmoidoscopy [facility]code [facility]] Medical Cent[facility] Future Scheduled 1953 Screening for malignant [facility] 00:00:00 neoplasm of colon Medical Ce [facility] (procedure) [code = 488469106] Future Scheduled 1953 Screening for malignant [facility] 00:00:00 neoplasm of colon Medical Ce [facility] (procedure) [code = 884289731] Future Scheduled 1953 Screening for malignant [facility] 00:00:00 neoplasm of colon [facility] Ce [facility] (procedure) [code = 346074643] Future Scheduled 1953 Screening for malignant [facility] 00:00:00 neoplasm of colon Medical Ce [facility] (procedure) [code = 465343343] Future Scheduled 1955 Sigmoidoscopy [facility]code = [facility]] [facility] Cent[facility] Future Scheduled 1953 CT Colonography (combo) [facility] 00:00:00 [code = CT Colonography [facility] (combo)] Future Scheduled 1953 Screening for malignant [facility] 00:00:00 neoplasm of colon Medical Ce [facility]ter (procedure) [code = 705723167] Future Scheduled 1953 Screening for malignant [facility] 00:00:00 neoplasm of colon Medical Ce [facility] (procedure) [code = 593761466] Future Scheduled 1953 Screening for malignant [facility] 00:00:00 neoplasm of colon Medical Ce [facility] (procedure) [code = 939108913] Future Scheduled 1953 Screening for malignant [facility] 00:00:00 neoplasm of colon Medical Ce [facility] (procedure) [code = 314693834] Future Scheduled 1955 Sigmoidoscopy [facility]] [facility] Cent[facility] Future Scheduled 1953 CT Colonography (combo) [facility] 00:00:00 [code = CT [facility] Future Scheduled 1953 Screening for malignant [facility] 00:00:00 neoplasm of colon Medical Ce [facility] (procedure) [code = 591239385] Future Scheduled 1953 Screening for malignant [facility] 00:00:00 neoplasm of colon Medical Ce [facility] (procedure) [code = 434939370] Future Scheduled 1953 Screening for malignant [facility] 00:00:00 neoplasm of colon Medical Ce [facility] (procedure) [code = 473809188] Future Scheduled 1953 Screening for malignant [facility] 00:00:00 neoplasm of colon Medical Ce [facility] (procedure) [code = 389338002] Future Scheduled 1955 Sigmoidoscopy [facility]code [facility]] Medical Cent[facility] Future Scheduled 1953 CT Colonography (combo) [facility] 00:00:00 [code = CT [facility] Future Scheduled 1953 Screening for malignant [facility] 00:00:00 neoplasm of colon Medical Ce [facility] (procedure) [code = 519280789] Future Scheduled 1953 Screening for malignant [facility] 00:00:00 neoplasm of colon Medical Ce [facility]ter (procedure) [code = 983727629] Future Scheduled 1953 Screening for malignant [facility] 00:00:00 neoplasm of colon Medical Ce [facility]ter (procedure) [code = 297872405] Future Scheduled 1953 Screening for malignant [facility] 00:00:00 neoplasm of colon Medical Ce [facility] (procedure) [code = 948035180] Future Scheduled 1955 S[facility]oscopy [facility]] Medical Cente r Encounters Start End Encounter Admission Attending Care Care Encounter Source Date/Time Date/Time Type Type Clinicians Facility Department ID 2022-07-20 Inpatient YOLANDE OLSON Surgery [id number] [facility] 11:33:40 IZABELA 2023-01-24 2023-01-24 Outpatient YOLANDE FRANKS [facility] [id number] [facility] 00:00:00 00:00:00 FRANCISCO 2022-11-29 2022-11-29 Outpatient R [facility]HA [facility] [id number] [facility] 10:00:00 11:30:13 SENDIL ity [facility] 2022-11-29 2022-11-29 [facility] [id number] [facility] 10:00:00 11:30:13 [facility] [place] [id number] Deo brown PROFESSIO [id number] Ne dical [facility] 2022-08-28 2022-08-31 Hospital ER Gonsalez Anupama [facility] [id number] 03:12:00 14:38:00 Encounter Izabela Galvan [facility] 2022-08-28 2022-08-31 Inpatient ER YOLANDE GALVAN [facility] [id number] [facility] 03:12:00 14:38:00 IZABELA maier 2022-08-14 2022-08-25 Inpatient UR MANDY [facility] Surgery [id number] [facility] 19:40:00 18:34:00 IZABELA 2022-08-15 2022-08-15 Anesthesia King Elkins [facility] [id number] 07:30:00 14:57:00 Event Lauro Galo [facility] 2022-08-15 2022-08-15 Surgery Mandy [facility] [id number] 07:30:00 14:30:00 [facility] 2022-08-14 2022-08-14 Travel [facility] [id number] [facility] 00:[facility]00 00:00:00 [facility] 2022-08-09 2022-08-09 [facility] MANDY Galvan, [facility] [id number] 13:48:56 23:59:00 Encounter [facility] 2022-08-09 2022-08-09 Outpatient CAROL ANN OLSON [facility] [id number] [facility] 13:48:56 23:59:00 IZABELA 2022-08-09 2022-08-09 Outpatient MANDY [facility] SLE [id number] [facility] 13:49:27 13:49:27 2022-08-09 2022-08-09 [facility] [id number] 12:53:52 13:47:00 Encounter [facility] 2022-08-09 2022-08-09 Outpatient MANDY ROSENBERG [facility] SLE [id number] [facility] 12:53:52 13:47:00 [facility] 2022-08-09 2022-08-09 [facility] [id number] 12:10:11 12:52:00 Encounter [facility] 2022-08-09 2022-08-09 Outpatient MANDY ROSENBERG [facility] SLE [id number] [facility] 12:10:11 12:52:00 [facility] 2022-08-09 2022-08-09 Outpatient CAROL ANN [facility] [id number] [facility] 11:42:17 12:09:00 [facility] 2022-08-09 2022-08-09 [facility] [id number] 11:00:00 12:09:00 Encounter [facility] 2022-07-20 2022-07-20 [facility] [id number] 00:00:00 00:00:00 Orders [facility] 2022-07-20 2022-07-20 [facility] [id number] 00:00:00 00:00:00 Orders [facility] 2022-07-13 2022-07-13 [facility] Mandy, [facility] [id number] 08:42:00 16:10:00 Encounter [facility] 2022-07-13 2022-07-13 Outpatient YOLANDE OLSON Surgery [id number] [facility] 08:42:00 16:10:00 [facility] 2022-07-13 2022-07-13 Anesthesia Rohan Lara [facility] [id number] 12:43:00 14:37:00 Event Jesús Lloyd [facility] 2022-07-13 2022-07-13 [facility] [id number] 11:00:00 12:10:00 [facility] 2022-07-10 2022-07-10 [facility] [id number] 12:26:04 23:59:00 Encounter [facility] 2022-07-10 2022-07-10 Outpatient YOLANDE OLSON SLE [id number] [facility] 12:26:03 23:59:00 [facility] 2022-07-10 2022-07-10 Outpatient MANDY LANIER SLE [id number] [facility] 12:26:55 12:26:55 2022-07-10 2022-07-10 Outpatient YOLANDE OLSON SLE [id number] [facility] 12:24:30 12:25:00 [facility] 2022-07-10 2022-07-10 [facility] [id number] 12:00:00 12:25:00 Encounter [facility] 2022-07-10 2022-07-10 Orders [facility] [id number] 00:00:00 00:00:00 Only [facility] 2022-07-05 2022-07-05 Outpatient YOLANDE OLSON SLE [id number] [facility] 00:00:00 00:00:00 [facility] 2022-07-05 2022-07-05 Travel [facility] [id number] [facility] 00:00:00 00:00:00 [facility] 2022-07-04 2022-07-04 [facility] Mandy [facility] [id number] 11:00:00 11:00:[address] [facility] 2022-07-04 2022-07-04 Outpatient [facility] [id number] [facility] 00:00:00 00:00:00 IZABELA Results Test Description Test Time Test Comments Results Result [facility] e Comments TISSUE EXAM 2022-10-10 Surgical Pathology 5 Report Case: [id number] 14:22:07 Authorizing Provider: Izabela Galvan Jr., Collected: 08/15/2022 09:30 AM Ordering Location: [facility] Received: 08/15/2022 09:37 AM PERIOPERATIVE SERVICES Pathologist: [...] is being issued to report results of ALK rearrangement performed at [facility]. RESULT:ALK LUNG (2 P23) REARRANGEMENT BY FISH: NEGATIVEPlease see attached scanned reportAddendum electronically signed by Jose Luis Mendieta MD on 11/02/2022 at 2:22 PMThis addendum is being issued to report results of PDL-1 immunostain performed at [facility].RESULT: PDL-1 (22C3 clone): PDL-1 (22C3 clone): NOT EXPRESSED TPS SCORE: 0Please see attached scanned report for further detailsAddendum [...] (0/1)J. 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 LUNG, RIGHT UPPER LOBE, BRONCHIAL MARGIN MEMBRANE, LATERAL, RESECTION: - NEGATIVE FOR MALIGNANCYN. LUNG, RIGHT UPPER LOBE, BRONCHIAL MARGIN MEMBRANE, MEDIAL, RESECTION: - NEGATIVE FOR MALIGNANCYO. LUNG, RIGHT UPPER LOBE, BRONCHIAL MARGIN MEMBRANE, FINAL, RESECTION: - NEGATIVE FOR MALIGNANCYP. LYMPH NODE, STATION 4R #1, RESECTION:- FIVE BENIGN LYMPH NODES (0/5)Q. LYMPH NODE, STATION 4R #2, RESECTION: - ONE BENIGN LYMPH NODE (0/1) Signing Pathologist Direct Phone Line: [phone] lly signed by Jose Luis Mendieta MD on 08/18/2022 at 11:11 AMBiomarker study:Tumor: [id number]: A10Pbuct will be sent to [facility] for biomarker testing. Results will be reported in an addendum.LUNGLUNG: RESECTION - All Af[employer] Edition - Protocol posted: 03/01/2022PECIMEN Procedure: Lobectomy Specimen Laterality: Right TUMOR Tumor [...] 11R: Interlobar Alex Site(s) Examined: 7: Subcarinal PATHOLOGIC STAGE CLASSIFICATION (pTNM, AJCC 8th Edition) [...] report. pT Category: pT4 pN Category: pN1 [id number]. Diaphragm.The specimen is received fresh for frozen section diagnosis, labeled with the patient's name, MRN and "diaphragm" is a 2 x 0.8 x 0.4 cm irregular, fuchs-white, fibrotic tissue submitted in toto in FS A1.B. Lymph Node.Received in formalin labeled with the patient's name, medical record number and "10 R" are 2 anthracotic lymph nodes measuring 2.5 cm and 0.5 cm. The larger lymph node is bisected and the specimen is entirely submitted.Section code:B1: 1 intact lymph nodeB2-B3: 1 lymph node, bisectedC. Lymph Node.The specimen is received fresh for frozen section diagnosis, labeled with the patient's name, MRN and "L7" [...] is a 3.7 x 1.6 x 1.0 cm anthracotic lymph node with a small [...] #3" is a 1.0 cm anthracotic lymph node that is bisected and entirely submitted in H1.I. [...] is a 0.7 x 0 point 3 x 0.2 cm pink soft tissue fragment [...] is a 413 g, 5 x 10.8 x 6.2 cm lung lobectomy transected at the secondary bronchus. Also received in the same container is a 4.5 x 3.0 x 0.2 cm pink-white fibromembranous [...] an 8.2 x 6.9 x 5.0 cm ill-defined, fuchs-white to yellow, firm, focally necrotic mass causing the pleural puckering on the anterior surface. The mass is 1.5 from the bronchial margin, 1.6 cm from the pulmonary artery margin, and abuts the pleura and the attached adipose tissue. The mass does involve the bronchus.In the inferior aspect of the specimen is a 5.7 x 2.8 x 1.4 cm firm fuchs-red, partially anthracotic area that is 2.2 cm from the mass. This area abuts the pleura. The separate piece of fibromembranous tissue is sectioned to reveal a 0.2 x 0.2 x 0.2 cm well-circumscribed, white hard nodule. Multiple anthracotic lymph nodes are identified ranging 0.3-1.7 cm. Sign Painter sections are submitted. Gross photographs are taken. A sample of the mass was given for research. Gross photographs are taken.Ink code:Blue : pleuraOrange : parenchymal marginSection code: L1-L3: Mass to pleuraL4: Bronchus margin, en faceL5: Vascular margins, en faceL6: 1 lymph node, bisectedL7: 1 lymph node, bisectedL8: 2 intact lymph nodesL9: Entire nodule from separate piece of fibromembranous ghdhakA73: Pleural fibrosis ovoid firm mass, inferior aspect of specimenL 11-L12: Mass to adipose yggqlzZ85-W10: Mass to closest parenchymal margin, perpendicular vjurytyD15: 1 lymph node, myyytppbQ46-L75: Mass to uninvolved lung fdzgesfyyxR17: Mass to wbdtfkwxG85:Mass with necrosis hvktuS94: Uninvolved parenchyma,L22-L23: Firm fuchs area in inferior [...] entirely submitted in Q1.KAREY Paredes, GIANFRANCO ([facility])scutcher tender. Diaphragm.DIAPHRAGM, BIOPSY:-CALCIFIED AND HYALINIZED NODULEReported by Dr. Gandhi to Dr. Galvan on 08/15/2022, at 0955.C. Lymph Node.LYMPH NODE, STATION 7, EXCISION, TP AND FS:-NEGATIVE FOR MALIGNANCYReported by Dr. Gandhi to Dr. Galvan on 08/15/2022, at 1043.J. Lung, Right Upper Lobe.LUNG, RIGHT UPPER LOBE BRONCHIAL MARGIN:-POSITIVE FOR MALIGNANCYReported by Dr. Gandhi to Dr. Galvan on 08/15/2022, at 1239.K. Lung, Right Upper Lobe.RIGHT UPPER LOBE BRONCHIAL MARGIN, CARTILAGE, EXCISION:-TUMOR PRESENT IN LYMPHATIC SPACES-NO TUMOR IDENTIFIED IN PARENCHYMAReported by Dr. Gandhi to Dr. Galvan on 08/15/2022, at 1239.Performed RAD, CHEST, 1 2022-08-10 Reason for VIEW, NON DEPT 3 exam:->hx 07:48:00 [facility] 1955 Sex: M FINAL REPORT RAD, CHEST, 1 VIEW, NON DEPT INDICATION: hx bilobectomy COMPARISON: Prior day's exam TECHNIQUE: Portable frontal view(s) of the chest. FINDINGS: Support Lines and Devices: Stable. Lungs and pleura: Unchanged airspace and pleural opacities. No pneumothorax identified. Heart and mediastinum: Stable contours. Stable surgical changes. Additional findings: Mild spondylosis and facet arthropathy are present within the spine. IMPRESSION: 1.No significant change from prior exam.2. Small to moderate right pleural effusion and volume loss in the right lung.3.Small left pleural effusion. Signed: Hannah Gustafson Verified Date/Time: 08/31/2022 07:48:56 Reading Location: [address] Reading Room , CHEST, 1 2022-08-10 Reason for VIEW, NON DEPT 2 exam:->hx 11:59:00 [facility] 1955 Sex: M FINAL REPORT RAD, CHEST, 1 VIEW, NON DEPT INDICATION: hx bilobectomy COMPARISON: Prior day's exam TECHNIQUE: Portable frontal view(s) of the chest. FINDINGS: Support Lines and Devices: Stable. Lungs and pleura: Unchanged airspace and pleural opacities. No pneumothorax identified. Heart and mediastinum: Stable contours. Stable surgical changes. Additional findings: Postoperative changes from right thoracotomy. Mild to moderate spondylosis and facet arthropathy are present within the spine. IMPRESSION: 1.No significant change from prior exam.2.Right upper lobe consolidation and scattered hazy opacities bilaterally.3.Small bilateral pleural effusions. Signed: Hannah Gustafson Verified Date/Time: 08/30/2022 11:59:15 Reading Location: [address] Reading Room , CHEST, 1 2022-08-10 Reason for VIEW, NON DEPT 1 exam:->hx 08:37:00 [facility] 1955 Sex: M FINAL REPORT RAD, CHEST, 1 VIEW, NON DEPT INDICATION: hx bilobectomy COMPARISON: Prior day's exam TECHNIQUE: Portable frontal view(s) of the chest. FINDINGS: Support Lines and Devices: Stable. Lungs and pleura: Unchanged airspace and pleural opacities. No pneumothorax identified. Heart and mediastinum: Stable contours. Stable surgical changes. Additional findings: Mild spondylosis and facet arthropathy are present within the spine. IMPRESSION: 1.No significant change from prior exam.2.Small bilateral pleural effusions.3.Bilateral airspace and interstitial opacities, which may represent atelectasis, pneumonia or pulmonary edema. Signed: Hannah Gustafson [facility] Verified Date/Time: 08/29/2022 08:37:25 Reading Location: [address] Reading Room C METABOLIC PANEL 2022-08-29 04:46:42 Test Item Value Reference Range Interpretation Comme nts SODIUM (BEAKER) (test 134 meq/L 136-145 L code = 381) POTASSIUM (BEAKER) 4.0 meq/L 3.5-5.1 (test code = 379) CHLORIDE (BEAKER) (test 97 meq/L 98-107 L code = 382) CO2 (BEAKER) (test code 30 meq/L 22-29 H = 355) BLOOD UREA NITROGEN 10 mg/dL 7-21 (BEAKER) (test code = 354) CREATININE (BEAKER) 0.71 mg/dL 0.57-1.25 (test code = 358) GLUCOSE RANDOM (BEAKER) 104 mg/dL 70-105 (test code = 652) CALCIUM (BEAKER) (test 9.4 mg/dL 8.4-10.2 code = 697) EGFR (BEAKER) (test 99 mL/min/1.73 sq In terpretation of eGFR values code = 1092) m Stage Descripti on Result G1 Normal or high >=90 G2 Mildly decreased 60-89 G3a Mildly to moderately 45-5 9 G3b Moderately to severely 30- 44 G4 Severly decreased 15-29 G5 Kidney failure <15Repo rted eGFR is based on the CK D-EPI 2020 equation that d oes not use a race coefficien tEstimated GFR is not as accurate as Creatinine Clearance in pr edicting glomerular filt ration rate. Estimated GFR i s not applicable for dialysis gianfranco joyce Coach Tour Driver ID - DBOperator ID - [id number] W/PLT COUNT & AUTO DIFFERENTIAL 2022-08-29 03:56:22 Test Item Value Reference Range Interpretation Comments WHITE BLOOD CELL COUNT (BEAKER) 11.9 K/ L 3.5-10.5 H (test code = 775) RED BLOOD CELL COUNT (BEAKER) 3.35 M/ L 4.63-6.08 L (test code = 761) HEMOGLOBIN (BEAKER) (test code = 9.6 GM/DL 13.7-17.5 L 410) HEMATOCRIT (BEAKER) (test code = 29.9 % 40.1-51.0 L 411) MEAN CORPUSCULAR VOLUME (BEAKER) 89 fL 79-92 (test code = 753) MEAN CORPUSCULAR HEMOGLOBIN 28.7 pg 25.7-32.2 (BEAKER) (test code = 751) MEAN CORPUSCULAR HEMOGLOBIN CONC 32.1 GM/DL 32.3-36.5 L (BEAKER) (test code = 752) RED CELL DISTRIBUTION WIDTH 14.1 % 11.6-14.4 (BEAKER) (test code = 412) PLATELET COUNT (BEAKER) (test 769 K/CU MM 150-450 H code = 756) MEAN PLATELET VOLUME (BEAKER) 9.2 fL 9.4-12.4 L (test code = 754) NUCLEATED RED BLOOD CELLS 0 /100 WBC 0-0 (BEAKER) (test code = 413) NEUTROPHILS RELATIVE PERCENT 69 % (BEAKER) (test code = 429) LYMPHOCYTES RELATIVE PERCENT 12 % (BEAKER) (test code = 430) MONOCYTES RELATIVE PERCENT 12 % (BEAKER) (test code = 431) EOSINOPHILS RELATIVE PERCENT 4 % (BEAKER) (test code = 432) BASOPHILS RELATIVE PERCENT 1 % (BEAKER) (test code = 437) NEUTROPHILS ABSOLUTE COUNT 8.20 K/ L 1.78-5.38 H (BEAKER) (test code = 670) LYMPHOCYTES ABSOLUTE COUNT 1.42 K/ L 1.32-3.57 (BEAKER) (test code = 414) MONOCYTES ABSOLUTE COUNT (BEAKER) 1.43 K/ L 0.30-0.82 H (test code = 415) EOSINOPHILS ABSOLUTE COUNT 0.44 K/ L 0.04-0.54 (BEAKER) (test code = 416) BASOPHILS ABSOLUTE COUNT (BEAKER) 0.10 K/ L 0.01-0.08 H (test code = 417) IMMATURE GRANULOCYTES-RELATIVE 2.60 % 0.00-1.00 H PERCENT (BEAKER) (test code = 2801) BASIC METABOLIC [id number] 14:02:34 Test Item Value Reference Range Interpretation Comments SODIUM (BEAKER) 134 meq/L 136-145 L (test code = 381) POTASSIUM 3.8 meq/L 3.5-5.1 (BEAKER) (test code = 379) CHLORIDE (BEAKER) 96 meq/L 98-107 L (test code = 382) CO2 (BEAKER) 28 meq/L 22-29 (test code = 355) BLOOD UREA 8 mg/dL 7-21 NITROGEN (BEAKER) (test code = 354) CREATININE 0.67 mg/dL 0.57-1.25 (BEAKER) (test code = 358) GLUCOSE RANDOM 104 mg/dL 70-105 (BEAKER) (test code = 652) CALCIUM (BEAKER) 8.4 mg/dL 8.4-10.2 (test code = 697) EGFR (BEAKER) 100 Interpretati on of eGFR (test code = mL/min/1.73 values [...] is not appl icable for dialysis patien festus RAD, CHEST, 1 VIEW, NON [id number] 10:13:00Reason for exam:->shortness of breathShould this be performed at the bedside?->Yes [facility] 1955 Sex: MFINAL REPORT RAD, CHEST, 1 VIEW, NON DEPT INDICATION: shortness of breath COMPARISON: 08/25/2022 TECHNIQUE: Portable frontal view(s) of the chest. FINDINGS: Support Lines and Devices: Stable. Lungs and pleura: Unchanged airspace and pleural opacities. No pneumothorax identified. Heart and mediastinum: Stable contours. Stable surgical changes. Additional findings: Mild spondylosis and facet arthropathy are present within the spine. Displaced right fifth rib fracture. IMPRESSION: 1.No significant change from prior exam.2.Small bilateral pleural effusions.3.Bilateral airspace and interstitial opacities, which may represent atelectasis, pneumonia or pulmonary edema. Signed: Hannah Gustafson Verified Date/Time: 08/28/2022 10:13:09 Reading Location: [address] Reading Room CBC (HEMOGRAM ONLY)2022-08-28 06:12:22 Test Item Value Reference Range Interpretation Comments WHITE BLOOD CELL COUNT (BEAKER) 13.7 K/ L 3.5-10.5 H (test code = 775) RED BLOOD CELL COUNT (BEAKER) 3.00 M/ L 4.63-6.08 L (test code = 761) HEMOGLOBIN (BEAKER) (test code = 8.6 GM/DL 13.7-17.5 L 410) HEMATOCRIT (BEAKER) (test code = 27.7 % 40.1-51.0 L 411) MEAN CORPUSCULAR VOLUME (BEAKER) 92 fL 79-92 (test code = 753) MEAN CORPUSCULAR HEMOGLOBIN 28.7 pg 25.7-32.2 (BEAKER) (test code = 751) MEAN CORPUSCULAR HEMOGLOBIN CONC 31.0 GM/DL 32.3-36.5 L (BEAKER) (test code = 752) RED CELL DISTRIBUTION WIDTH 14.2 % 11.6-14.4 (BEAKER) (test code = 412) PLATELET COUNT (BEAKER) (test 652 K/CU MM 150-450 H code = 756) MEAN PLATELET VOLUME (BEAKER) 9.7 fL 9.4-12.4 (test code = 754) NUCLEATED RED BLOOD CELLS 0 /100 WBC 0-0 (BEAKER) (test code = 413) [id number] 11:50:41 Test Item Value Reference Range Interpretation Comments PROTIME (BEAKER) (test code = 13.3 seconds 11.9-14.2 759) INR (BEAKER) (test code = 370) 1.03 <=5.90 PARTIAL THROMBOPLASTIN TIME 34.3 seconds 22.5-36.0 (BEAKER) (test code = 760) RECOMMENDED COUMADIN/WARFARIN INR THERAPY RANGESSTANDARD DOSE: 2.0 - 3.0 Includes: PROPHYLAXIS for venous thrombosis, systemic embolization; TREATMENT for venous thrombosis and/or pulmonary embolus.HIGH RISK: Target INR is 2.5-3.5 for patients with mechanical heart valves.RAD, CHEST, 1 VIEW, NON [id number] 08:15:00Reason for exam:->post-opShould this be performed at the bedside?->[facility] : 1955 Sex: MFINAL REPORT CLINICAL HISTORY: post-op TECHNIQUE: 1 view of the chest. COMPARISON: 08/24/2022 IMPRESSION: Diffuse right asymmetric pleural-parenchymal opacities are grossly unchanged. The right-sided hydropneumothorax seen on chest CT is not readily evident by plain film, possibly due to layering pleural fluid. The cardiomediastinal silhouette is magnified by technique. Signed: Gonzalez Knightepbryce Verified Date/Time: 08/25/2022 08:15:25 CBC W/PLT COUNT & AUTO [id number] 05:23:48 Test Item Value Reference Range Interpretation Comments WHITE BLOOD CELL COUNT (BEAKER) 13.2 K/ L 3.5-10.5 H (test code [...] H PERCENT (BEAKER) (test code = 2801) [id number] 05:18:08 Test Item Value Reference Range Interpretation Comments MAGNESIUM (BEAKER) (test code = 2.2 mg/dL 1.6-2.6 627) Coach Tour Driver ID - MARIOBASIC METABOLIC [id number] 05:18:07 Test Item Value Reference Range Interpretation [...] = 358) GLUCOSE RANDOM 100 mg/dL 70-105 (ROXI) (test code = 652) CALCIUM (ROXI) 9.2 mg/dL 8.4-10.2 (test code = 697) EGFR (ROXI) 96 Interpretatio n of eGFR (test code [...] not appl icable for dialysis patien ts Coach Tour Driver ID - MARIOCT, CHEST, WITHOUT [id number] 11:38:00Unlisted Reason for Exam - Click Yes and Enter Reason Below->No [facility] 1955 Sex: MFINAL [...] mm. Attention on follow-up imaging. Signed: David Arreola MDReport Verified Date/Time: 08/24/2022 11:38:27 Electron ically signed by: DAVID ARREOLA MD on 08/24/2022 11:38 AMRAD, CHEST, 1 VIEW, NON [id number] 07:05:00Reason for exam:->post-opShould this be performed at the bedside?->Yes [facility] : 1955 Sex: MFINAL REPORT CLINICAL HISTORY: post-op TECHNIQUE: 1 view of the chest. COMPARISON: 08/23/2022 IMPRESSION: Right asymmetric pleural-parenchymal opacities are grossly unchanged. Widening of the cardiac mediastinal silhouette is unchanged Signed: Chika Knight MDReport Verified Date/Time: 08/24/2022 07:05:41 (CELLAVISION MANUAL [...] CONCENTRATION Increased (CELLAVISION)(BEAKER) (test code = 3438) Coach Tour Driver ID - joseph Solitario comments: Slide comments:CBC W/PLT COUNT & AUTO [id number] 06:50:22 Test Item Value Reference Range Interpretation [...] (BEAKER) (test code = 413) BASIC METABOLIC [id number] 04:28:34 Test Item Value Reference Range Interpretation [...] not appl icable for dialysis patien ts Coach Tour Driver ID - DREW [id number] 04:28:34 Test Item Value Reference Range Interpretation Comments MAGNESIUM (BEAKER) (test code = 2.2 mg/dL 1.6-2.6 627) Coach Tour Driver ID - DREW GTissue [id number] 16:43:29 Test Item Value Reference Range Interpretation Comments Case Report (test code Surgical Pathology = 104) Report Case: [id number] Authorizing Provider: zIabela Galvan Jr., Collected: 08/15/2022 09:30 AM Ordering Location: [facility] Received: 08/15/2022 09:37 AM PERIOPERATIVE SERVICES Pathologist: [...] lymph node #2 ADDENDUM (test code = e5tkhENtGHYueTO6HzHxNZ 3381) Eqa6miw8DsiRJcgEJjUBzt fHMtbfXcxx70tYB6pI04CM 3lOJEiVbZ5RNBdefN0Qun4 SNSuSJPdiTIoY737u0oyx8 lhwhNykWG2dDteJBPprphy IgN8OZzfOGLaxtdaRPz3WK szNSXkxWA4RVZanCTgB6Iq RIAfDT9zlep8DID5IQpqLW TsFeM6DBZyjGQmJCWsfEiw RYuoa486GNP2FzPpYMQffc HkbYeirJ0cElTwZAFTdNzx IGFkZGVuZHVtIGlzIGJlaW 6nQNbrv2NzHHJ1lbIvBPDu etAgafArpBu0zyNrQkSMNR cmDQJnjC92tx6cdGKqukJw QYPnm1OsFVZvDNRbQvQsO1 Bsa08oT7SkMRHgw1YcsJ3p aWVzLlxwYXJccGFyIFJFU1 VMVDogUERMLTEgKDIyQzMg G6fclmKdDsPufDKcFWYxxl RJWAnkWLOiOjGSCzPcsY4r KRo8IQ1ZVZPUPFABJMUCIT VeQFIcygMDVLAxU0DXWdV8 IDBccGFyXHBhciBQbGVhc2 Hfi7OfEPM5sHEbiVFxSYWa AV1eSKKzdvWul2X7IYZlsk KcmWR5zHHuOXEonNTtlPPe cGFyXHBhcmRccGFyfQ== DIAGNOSIS (test code = r1oczDBcFDKoj7vuYXCdgC 3220) FuZzEwMzNcZnRuYmpcdWMx IHtccnRmMVxlcGljOTYwMl zagqNlWLKykTIpT0Gcflll HVzyJI5ySH2kyWfuuFXuwH XdCUHyHcQfi0xcc166kXEg b8caRFYTdusftLb7iGmaC7 8sy9B8HvtjD0yyHNAtUBoc zsGlpzA9AYJqkFLvBKs7CJ BhcGVydzEyMjQwXHBhcGVy pJE9XONeAR8qgboeCPvwMK nnAXXhnuD0LRZhtGWsC2Ab LTZgOR4ewgkvFYJ2VWqwVG OtLVR6MoRgVHWjd5Wenxo6 MjBccGFyZFxwbGFpblxmcz DwPZPgKAIRGAZHFHYDV44i TJMSV0WVQQCYG4YtXiYZWz BJHDSQN5ROX121SNPimwXu GSHtDuNILSVPSnYbCa2ZVY 6HTErQTjEVV0hebECcVFZk HZFUE7NVRkwQKxQTLdAvP8 lGU91RRiGFXeGPAI3NANAS Q54yyFTuNYJugjFMDoUrQM jPVTpwGt7AJRvvM1ZWPXqM CoGqHWRIYNOOJJCTV9RNP2 46XHBhciAgLSAgTUVUQVNU EVBMGrRLBNQVMH2ZQiOLEN CMAF4QWOOrXU1PP8yXQW3R HCKsU9VwCfMIBA0VIMMDH7 TFKyHeLN5rTMttTPZbaQWw EZJdCBISCJ0EHQCHB2VSDI TUHJIIQC4GHJdhQDHHK1YJ RYjAWoWGT6SyGwTVSdYUXO IYM9EKL357VJAtknTzOKYk R77RYXEDWqgJMoGKEY0LHW QRF1KZOCtoNbFhMYBjrxkf YXJkXHBhciBELiAgTFlNUE drNl6XZEtrK8AXHPbIYtK2 WOLeCVITSKGFK8HDF347LQ MeflZrTGEmM67XZLBVIoyF WcBCXZ4ANSVIJ9QOFGwzGq EpXHBhclxwYXJkXHBhciBF AmGoSAfGPKhyNb8IXNyzH1 HUXZzQZyM5NBEiTKTUMXMV O6LFI187WHXjtkKzBSHmZ2 8BQTSKAghSGjHTRD6VUFZY A0LMVVzvHyGvKUHpfhnoNL JkXHBhciBGLiAgTFlNUEgg Fm8DPTudR7UYATsUUfBcHE AABNMjMWCZJBQGD1XDQ299 LZHumwQsXFSqP19QNQNGZd nMXoHYVE3KFSUXX0FGBBgv LzEpXHBhclxwYXJkXHBhci QEPoEpHHoOEWbvMd9KTBot V5GABQwDNkGbEQVCNDKzUO VBSMRHQ3WIN878ILWvixVz PYUrB51NFWHAWghVEyMNAL 0ZQUIXA5LGLPbsFwUpZKKb clxwYXJkXHBhciBILiAgTF zKROwqSl9RUVyvV2ANYAfM TiAxMSBSICMzLCBSRVNFQ1 OLE439JTXhnnTiEDUzA43K UDFFAdiAAfCAOK7TJKXBC3 RFICgwLzEpXHBhclxwYXJk XHBhciBJLiAgTFlNUEggTk 9DXTpaU1UGAGbQVhGfGHFS BVQ5HCJAMRDDH4RQA002PX NkwpIlOSOmO72PCIIDTrcX LeFMUS8GRJWMK1RHAHkwNc EpXHBhclxwYXJkXHBhciBK LiAgTFVORywgUklHSFQgVV CYUXTbOU7SNOszHdQRNwXY KQIPRB5IZgyTUnRRXV4GCh CVRWqiGvVDBmEPQEXJV5LL P676WDByafCrLLYsO9TROP 0GISWaR8BCKFWXQMMUGX0L TXTyPCEIVvDOMI6YMosEHy SlTwXGBBHLWvW6DGTXJVDI TUVOUyBNLCBOLCBPKVxwYX YmcIReUVyqFEZCGV8JSULP UZlCIJHZDARTXvWND3OZLG UGDl9NM0gVGCxrQPXDV8bE IENBUlRJTEFHRSwgRlJPWk GLTENKO4GMD451XZGiunQr VRYuNSBLQ5PcZOTJM3QZZS TFIrGFCH1IIBXUIRRmA5AN X5YQGVDqtxZrWYTfApRAEp KFTCRGLR5ISkgOWsNHTm5X EDDaPX5AX4PMVISMZHAGVb JTYZzZM64JAnQKMDUgwsrm JLOnTO6gZBeWOiavSAPLZ1 hUIFVQUEVSIExPQkUsIExP JvEAPT5ZSHmupCRaKQIaOS x+LSBcfklOVkFTSVZFIFNR YNEER4JOKUDTNJujE4XRR2 oHQ80VUCANI9VYAiNSLFGB MhBEU01MSXcaQMxDFwUVVE 1ECEBSTYNlnZKsTC3pDKn+ EGPLU4ZyKDZCJ3LCGZMcBG 7pZLzySv54WJglXV7aRYBB XHBhclx+OLYzqdYDJG9HUV lZBsVRHJHfPjiMA2VHRSyz UExFVVJBXHBhciAgLSAgQU RIRVJFTlQgUEFSSUVUQUwg IFlRFASTLIMBQfsVPs4KDg VEXHBhclx+LSBcfkxZTVBI W6HFS9LXTZKWIKkQSfHEUQ 4DAWrGURlURQ0OVMZIYSIv cCEdCX6fDYh+QlJPTkNISU FMLCBWQVNDVUxBUiBBTkQg FBTMZG1QXYxKAAyhMaBNHK JBWL1TXQ0RQoiWYxErSN7F S8CAYPQHGWPMVhSDXVnGI1 8GIqBUDZEmqyg0IVLsPTGX Pv5IP2vHGMiiLEKZN5jSFh ZdRtTqT39nTZsLPEgcTVNt cBKqKY4pTdXLS1SJDHMmLZ BPU0wGBeFgCbIwV90eWGjH TKwuSHUgwGAzIL2pFWEAKZ 1NNRqEMYpjJMMPI2wWLsMy FjEpK56xVJhGNDmlTTOjI0 MjIUOdBXACWQQGU0DIYHdH VECIDQODF0ARISTWOkDBQx 9NQSBJTlZPTFZJTkcgMSBP HjU9WLkUQBEPTS1ZXHVKXM bpVaPvXRTqvbgqJaSuJH9w WVKTII1YC0bTPSDdPVLUSq DQWTVCYzDMSV7DEEGMDJPL FPPNIcsVKh5SV8kTJ4mNUn WCSUXGOYkCE6hKKTDLSYSp rPHeIYHyHIZaBt9MOTxvIK gLOm6FL25RHTQtPE3HOSoP F59ZTP6UXFKplhu+LSBcfl PLMUcEMC4SWBKqJ6DQE4bP CqlxkDX5DoYJrPMrJDlSFz H2qSygRIFnJPsmAsTkHZls ZQQjpVPpJFzhTNHwYT5jFJ nVEicbHEPHL0aEMVFWWJHZ JYbWWpKpKDVQK85XHEhOOK UUDJFMGB2aECEKIwKXDxQb GZqMEFSIBUqsTNIUU8EDJE lPTjpccGFyICAtICBORUdB JMpRYROXF2RfFUSCZUtTFQ 9MVEmdPTIviIKuUW4iXTFW TF0SDAAEENxURAFLCYETJb IZY7LPRPNGEs5BA0qDJFex EENBZ6gRDD9EIJXXEY7ZBO LYRWKJYFrlTCIOS2SDUMqS TjpccGFyICAtICBORUdBVE pNUKFIC7PfDRBVIDdSZA5O WVxwYXJccGFyXHBhcmQgTy 7nXCbPYofsQZPHK3aNTYYH YFFXPWiOSrWcXDUTV87UTI yHXWEPTQCWRB8wCLVTPcRB TkUsIEZJTkFMLCBSRVNFQ1 DBB205DBYmjfTbTXKjFaCE NDHCJzGxBb0PXJ8PIHtFCr HHH0ureMYfCOSjoovzFDRc ZLHsUREEUY7NYXNBL7YDMS VCJHQCNV1BIFWJBLIbGZDR PEFOH4YMX024SVPudoYyFS WXSYSBGISFCabXSnJKPB6U DVJVY0VPSzAxKX46PBejEZ CkmIOyUGPhHSnUKZLKSV4T CPLsAESHJOSGI03zHYMqRw FaULOYD0CSWDxVEbewbJUy ICAtICBPTkUgQkVOSUdOIE jDIUNDWH5TGULpGDDmHMco nHGfrUtbpnHjHCyki4DuEP inAXUtIZ6guNsvHBQyWG2p FVXcV0cbvR7cfqm5TpUnKR JbVvD2UOGipjB4Coj5ZGBv OEbps9saa5TfSPGsJSd2yW aqNfWyRTChm4cqxhMrVcRj RVYkKVChJIXolAMpV407n6 noz1azttNawXR3HJXmLZJ3 IHghlhHicfC3KLmaaEQxKk W8WUftgzCsDHrajhWdmpSp Qvf8FDKaQ395ORP2hOlrs4 wiUXB0OHFtAKQgSgZeXl8z oLEcL909QSJeTIAKJDHnmK u5RODelcIgjsBryGUAl095 Z636y8kgFTFizzZmjFaRxi kws6kwI337ZHWwkWSodzXx IkXkCQEabJDjeKJ8PAEgAP 0hbcgfCRqnDPksOAJbfeL2 XKGgqXPgK7YqEWAiIP0nlz foFUX8VEcrPDDqPFJ4VoFe RNKsr6Mxcvh4FnGbbe1rxg 84IKK3a8EnbHywJNQ5SMF6 OfVhDt1hzODnRVNcYF8tYb LvgUGtPVJjge93mVcuFVpe RCX4JDEynbFdw2Liu1blLe HiokJtI3hoQ5IvCWRrXNEj VXKpCsKfutWpd2Eoh3HcpN OhzGj8w0kdSCYuIFWohEmh t3rpYCK9DBMcqYLsF8kyaP 0nGXDuME7qmbgla5vsXUha SPrnSOPbzGN2fyN4DGUhtB WfJ5LnpF2qSEUoORihFMCq tva1WhSuFg4pkTQsiWnaWR xzYmtwYWdlXHBnbmNvbnRc cGduZGVjXHBsYWluXHBsYW luXGYwXGZzMjRccWxcbGFu ZzEwMzNcaGljaFxmMVxkYm AdPPOfEChoZ4wzDhVeYhZi Xey5DSXcsLYaXUJfVbs6EL XflEEkVOXTpUmtzZ6sAIEr xIzexZ9msXO9GHDdttOjpN XZoR9gIGOAvF2vCaS7UKNh Slq4VAG6XsXegAFyeB0= COMMENT (test code = k2ztfRVmZUVpxQQ8YbKhJV 8901) Ovd6kch5DepNZcyRHhEXuz qPTiqsBuai23jAU5jS81JV 7hHCKmElZ6UAUkgyV3Ucd3 JVGnGZLnhQFpJ173l3gio0 ewdzVsdXT1tWwmHETeiotx XwU1NRjlAWAjajkwEEt7VE hcAVDtmEJ1SZUwvVQwF1Yx VDNcLF3zscb2VFV3CWmiCG YaPgI2JSHvbHArVCJdcZnp PUrvk865AHR2CwCpIOVpln CeoOhprY9kOjUtSWILoG5q PEIoGUSko7H9GNf1UKSucj NQcP8svhhvWDXqHIGnpdIS k1DkQWo9JCofBHkrMFYxqO SxIYM7lK4xAJsdwAujWeQd x1AloLK7scLUWP1tEE0wsW wwdiQoi8PqPlcaaKQof7Ks CFIzi2GlmbtxMJAkh0KhcH Eve4cccPWyWSLcTPAhxmLr OEHsemDukeSjFELtatV5vJ 5ccGFyfQ== SYNOPTIC REPORT (test LUNGLUNG: RESECTION - code = 5765) All Ykqygvpdb7uj Edition - Protocol posted: 03/01/2022 SPECIMEN Procedure: [...] pN Category: pN1 CPT Code(s) (test code i9zvkCZvXDStpQE2PjYaZT = 3357) Pnp8gck3KdgNLmwQTsEJid lTMkpvExou19eVR4eH00WH 8eFSNjKpM8MFKaicP0Oyt4 JJWbOQMnzEXmS609m8ufr9 xemyHigLH9wOqmHJVlqdhf RzJ0UBijSDUlbvruOWk3VH tkDZArkBF5RZUinXJgL1Cb XEFtAL6bynf9JRY1UYjpLD ArGhB0IKHwxYNiDELlsQms BYrzi988VIG9ZnZkFIFcwg KeeLiehL8tBpTiXEW4JEPm LWe1CPJbfbM8ULPbA5txNB RkjlS9UJWbBKfpVEYdNKsu MDVYMTRccGFyfQ== GROSS DESCRIPTION (test a4izoNRdTVSxgQC1SnDxFJ code = [id number]) Luu5zed2ShiZGzeKKiWLxs tEUclfKhoy50xUK1zT57XZ 9zYKQpZdZ5LCYezxC0Rzx9 IYJzLDZpvYYwG092i0jap2 yuosBcvNC0IGTiFAPpM8Nr WZ8aEINeaHBtG68ksSYnCJ Y6ZRSyVXJbmRJvKEWqIFK6 ZBJdfIUkH2cpVKVrTO8jci rtWPshFYagVUVfnTG0OOLe dLGyO2TyZRZtJWkbQHObfr w1FzKdYl0ruKZrbBdjXIsi FWEbb3vdRLUdjEIjKJV1AH qshCEoIBUpHDDwQEm6QQOr SXkfuKXaII4yvGywYbxiwV itf2DqrDDhBKplGLFxXWRt QPcqSYYrD9KDQYExEGIiQg KjHWXnPSb4JRnyJ0JEGNJv UQRuDXGiMSt3PpQ2CFk8HC YTBl6fBxl8JAkrWVYrZWH5 OTkxIFxcdCAyIFxcZmwgXF ndJYFjtNYpALxcecE4NQYr XUpfLWWxOoDnZL2dTDshfD hyYWdtLlxwYXJcZnMyMCBU vERny8QlY9hjQK5dbSShqc HzPYz0SSRfNsWgw3ghJo0p WDOjt3yhvjCsJIU2pZ6jDO PfGJcbj2JpgwlxaNArYLvl MCR8kICbVSLhOMKsRFFoDF 50XCdiNHMgbmFtZSwgTVJO IGFuZCAiZGlhcGhyYWdtIi BpcyBhIDIgeCAwLjggeCAw JiRqM69ilVRgNZd0nFLrFU EvxyO3MFyooUXzFWHigBGy d6DeVgQ4gXEolCOul2AsfH i9fJHmFHlwZMLonJ3beO1t GbNiCRFvg3mlrOuuj6QdlE SdEFhhLFXxqATmVWokoX9r BpXqz8agmSk9ZLhthrG0ZK Znwn46DCmkHHTtU4NpR0Sd TUysOGF5UXHeLxLjHBKkYU 1QQmDaOMksFPBjRvyuOYo1 MPn1JX2XUaDuYVJoKfJqDS E1MhKmAOp9ZChcZV1BKEW1 FAC0YEbbLNY3UVu4ZJHeXX QgMiBcXGZsIFxcZiBBcmlh fCTeAZ2mvHgszlBgRIBbLL v3wKBmBW8oMURjUYCnjixv czIwXGNmMSBSZWNlaXZlZC CfhzUal7UiSDxorxMjJNJl bGVkIHdpdGggdGhlIHBhdG yuroSuB3W2lpMvDY4lFOEu FQVlK5YjYNFoP21zJEUniW 0gZSZgMF3gLQl6UQVyGTCr JzkzMTAgUiIgYXJlIDIgYW 39iZBlK004aBHtkSjseFlz lb1kQIKwlIAbs9AyaX3rMJ ZvENHmlNKdrgQgOJ26FMFb LiAgVGhlIGxhcmdlciBseW 3krINpm3IdOSdkZEGau6Xi yBLrEPFzFED3xAXom2IjU7 urGJ1kvERpYK20aIJkpLyw a2MbbKg0jYCdSdkcTQJktB NnICHjF2Cmg88zL60iCDvh cGFyIEIxOiAxIGludGFjdC FxrN3ldGOgx7NiUSUxifKG Kw4DEgdpXBCjjW6gyNTkb7 VwEVCbjGRhY0AfLAqxMQZc L4OxX7IipjAvcYTdRWPauj Pfd9ttMOG5TBJhlUAycPJs TmOyVexhDNC9c3bkCTJuoF XmJRH8UKvpbIMnEBGkFSJr KAhwOaFAEoVaAwJ2FVSyDo N5NkC9DJe7XQOBMuUuBeUb JwKnYTA8CBFhBLs1ISr6UB jXRgB0NJzhFRZhHlEjCSO1 OHYhLHy1DSXpJVutaGMsPC MlTSEkSSsbUWbzP68wXgLx CDnrPqUuQx3tKSkabIhyTh 9rMA1fsLIiMPKeDbYoVSnx IHNwZWNpbWVuIGlzIHJlY2 VpdmVkIGZyZXNoIGZvciBm ad21PM7qy0ZmsBayaxOkyP Khve1thDCoSTizNaNxIYTp j4k8eZB6cZRniJU1wNFjfT gqHfNdBK0zgIEjOV8ARsNc eaLyBqe8RvMnznYxSXQnGF B1GSBmEQL3ADBeSiDejSHn zhLdpuVih5QlReRdzI6gkE Eaf2UqMdWsWRulCVQeJWXm kXFsPDcrUXBvk0RyjCGvII FuZCBhIHRvdWNoIHByZXAg dLVboBIvPW7jHGFeATAaiX JzhM0dgbAjpvCgdhBnisGo pCEqrWCfmJC3NETiuT3pGx VwPmZsg4kdeKzzg6QmgCRm OYlzLTCbfZXdISsetJ1pHb Uzk4xhgBk0PEfhdtI3QAUi hx36YLvuDBQyP1RgH4IjVA pgKBD1EBMgZmCzUGMyJH3C ZqRmPPxvKATxUdedDZf3DM n6ZN7ABtOvPWMnQwZbKYhj IEVqNYh3EJutSY7JFCN4AE N9AJMaOfB1JYv0TCCzJGSq MiBcXGZsIFxcZiBBcmlhbC QmPQ7opStmmpTuXQMrXLd9 cMPjLC7pPAZeRAWfxpupuu CuJIWwU1AhstLqMZYwQGQa KAxtQzYhHSCra9k4hFS8oH SsuUT4hTMihYzaKmAcRW2p uNSyOA5fCEknNZgvcaPsr1 QhPZ01iDRgnhExyaUvLss8 IiBpcyBhIDEuOSBjbSBwcm G4iW23t2g0WWjuK7kyUHPh YX16zCCiM637wSUwrSqlyB skzm2pXNU8nXW3LRavXCAb x1InsUTzZIBrCGKfxwEyfy IpaYRwvUJlqAL3IAYbwE4s AIZqXDPnb5hmlNgmv1TfwQ WvPZotAYLavJSuUFghrX2d DaGwn5rzmYc8DLyasiG6KX Eyce33PIitQOLiQ4HzB6Al QOxjAMA1JOHnIfIqWGRtLR 2QUyFoWIoiTOIbCqwqQTj9 OMc3DY0JEcTtABCjLrYaSP frYYSsRXi7BZueJQ6BXOI9 XKL2WWAeAEG4OFq8YDJjUY QgMiBcXGZsIFxcZiBBcmlh oJXhDQ7ifZahwsEdUJOkVP z4pRHiIC8zJHPrURPtofby dbKqHOQfT9UvgzKnNFUcAN JtJIvtGoUwMHIdo3t1tEH4 lETqxPF4wKAzdIsfSuTtWB 2xpXYbUW2aIXopMPnvdiHo f0YjHJ41wZDymsOkvpRtGb c6XBRcDwFpcsXpKAJaVnM4 MKAnYdS9JKLpWZYqkCOdgo AorvBfp7NwDbCooG5dtNBu q6JdJIfggRcdUDBnxIQqrA RfrF39uhHuv1FpXWO0CJHp SFKiBVEzqL5qOPT5fKSrpS XnMLKHwMAuiZ0bfzDhyiWj HRWjPJyihAKlFRB2dP0hXU SrLU9nJWWjmQdcGEu9FEQ2 Nb0inDZiBXEmueYAKC4DSG 46ESYwdBIdBDO1IP3ePKJi uhcxQKXkBODnPAY8HHdgbX 11bHQwXGZzMTZccGFyfXtc RnavnAbbu2SnoANnROtzNZ SxCDTmYFovSTDsW7SSZCQb ATHrOgTxWPGzQGq6IAgtI7 ZTICIgIDMzMDAyNDgzIiA5 UEb0CRFWJu5pZfh0KzV7TI u2LCA7TRszKKjmvMMvCKaz ZmwgXFxmIEFyaWFsIFxcbm O7BYUwBxLbFm7xVSgzqIei Dx1gWZ2qiFGsLZFuKjHhCj HyMIs9HHQwMkGut6yoqKKo YQpjZIH0kJVxYTFwBRUqNK MmQD56VWmaMJVvcxEnAKlc bWVkaWNhbCByZWNvcmQgbn VtYmVyIGFuZCAiMTEgUiAj JAQynUOoQSVgMkNdY70rTV 03iBOoX071iONeuRaetGox hj0zOBPllEVigPU3TXHneX 3qxB55idHcnqGBQY72WPKg rITwWJU6LJ9bNWYlfppuSQ BsRVEjPPC6AWymwG10uEOm XGZzMTZccGFyfXtcKlxlcG vou0KriHRqEQavPVWvGRBd WHprFMViL9SPDDGwRKLtVy UpUSBaEFf8AYvsX8NKHVSn AEJrSUMuFGIlHkE5EZo3PB XCCo9cAej5HlZ7YsDhBMQ8 OTkxIFxcdCAyIFxcZmwgXF aaNKIcmZRfEClkydL2TNWj DaUvXx4dNRgsgOgnKz3mVU 1raIBoQOSxZgBcLfAgCEr5 JQLgThCrw9shkWGlXVjiHL C1wJFaDIScTZHyGSKwSG78 XCdiNHMgbmFtZSwgbWVkaW NhbCByZWNvcmQgbnVtYmVy IGFuZCAiMTEgUiAjMiIgaX FsDRIhIexvN18xCG26sFGd K133oVJmeLfwlWkfas4fGP C7zAX1NDeaNXPgo0PgyOHi IGFuZCBlbnRpcmVseSBzdW PueNA4HAYfzB4pWwXgKbRk d6kcsLwmd1UczAIlVNbnZJ OahCUzYYdblZ2hDjRzb3sq mQh8ETizzcF7OVWppp23PC aaEGQiS3CfZ2UrMWirSJF7 WKPqSeAiVEEeWF8OPpSeWL qeMESaSitvXIw7KNy2JZ7F UyAiICAzMzAwMzAwNiIgOT e9USjzXJ0LWXW9OLD6DHYo LVW9OZs5PJFcVPUqXmOiLD QpPYsfJgBSujlsqUBaLX6s zNmuxaNnDGpcIAj8gHFeSV 5vZGUuXHBhclxmczIwIFJl I5DfnnUuEUEcBHFhFQvmZs JtIXSod2b5yQU6mVAazIF2 bQGuuJqrYcKtSI0pzTNbOF 8zFBmbJHgtqnAmo7JwOD65 bWJlciBhbmQgIjExIFIgIz IfWWihFSLeJD1rBHOjKPNg aWhnGLHcyVdgLDy6uIXeXE 5vZGUgdGhhdCBpcyBiaXNl I3IoYDFylyUwOC23wYAgiV opn9EodEm8wWHlNKjvMOly UgfsYGXvH8GpI3HxrwKedZ XtYTRplfOdx3alPTO3SMJs nIXyvFSyYcUqQlyjXXZ5b9 bdMCVvbXIgVIF1DUpjpVLz NTEwMDIgXFxkYiBPVlIgIi G9GEUhUgM0BcL1FTq0QFJQ VlMgIiAgMzMwMDMwMDciID k1UBg0WTcRLkK0UOynGha2 FcxhBZV3MQMcJBt4JRCbZB xmbCBcXGYgQXJpYWwgXFxu C78zEnLwKTQTOyHFcE1pbX OMz1LqAcsdVKHiEtAuCSZF ZWNlaXZlZCBmcmVzaCBsYW JlbGVkIHdpdGggdGhlIHBh jTlbcuYoI3B8jqKxNE7mVG YhSWYeP2TkBDQzY66bKARg jP1eQDLeMT8iQEPySBBIWO W5ThSbcpAgFNJwMJEoaXWp hjBkicIpz9WzXaQkqS4meQ Bwm5TbRZBeAGhgXD83NLMg gM56qzNuPQRoJSFwelBwjL KtkJG1YIEezJ1bsC53rkHs xzGFHM82YAVjsVDyIFM6WH 0mGTCbaiymLFIbWIJrJAG0 LGrxeR55dZNsRHReMHMznN GsbLoxSjlilQetm0WfgEKn XGlkIDUxMDAyIFxcZGIgT1 ZSICIgODAxMzMyOCIgOTk5 GPguP4GSADDsSBEhEWMyNZ J1SwC0FFt9UHMPPd9nYre0 YuN6JGH9INK5GGljQLsahE AyIFxcZmwgXFxmIEFyaWFs SEsglxW4SWOrZeJbQh5sLM VuZywgUmlnaHQgVXBwZXIg GD1aHC3dsAIjNUIrYvNeD3 IfTVSgBJSdnKUhtO5kckTm cyByZWNlaXZlZCBmcmVzaC Lby8LiQvJpraToQJOvY4At x65pUAshI05sv3ceJJZhHP JlbGVkIHdpdGggdGhlIHBh wSwlgmEiT5D1bsKgIT6zTT BEHe4pAN3pIWGudM8cVWCk gUqwkBB2gGAzduMcq7WaEj VhqfZuFVKnSnI5BCHqzI3o dbFuKsP8DUNeQwKmdZUpqN 3mOMQzBbJlpTvbf1BqFDKw GDmzBA22KYP9Ne3xfSThCX OockU0x1QeWZqhLOLYZAzr NwouPKXoB0JkX1WaemKzwQ SnJTCvvfAtn1wbSVI5KGAu qOBysKJyBiCcAizuAKU8m7 tsLMHqfFBaVAW2RBtfuSGd NTEwMDIgXFxkYiBPVlIgIi G4MLAaSsQ5HkD8BHh6NBRM VlMgIiAgMzMwMDQwMDciID v2VHr2BUbYDxM1RCgqBdZ4 LIHgGUG5ISYaRDi8SBSiVD xmbCBcXGYgQXJpYWwgXFxu F63kFcQsPPqeVbTlWj0cDZ VuZywgUmlnaHQgVXBwZXIg DR5tTX2qtLSuTWPcXeVoL7 KyWTInXJXrsAQoaH9cfjTn cyByZWNlaXZlZCBmcmVzaC Jwh9QzOhKxqnGjFSZgN9Ca s04eUYimN15fs8chYNSdGA JlbGVkIHdpdGggdGhlIHBh rUkuhcXaH8U8yfDoLD4yOB BWLc5lUP1qBBIioJ7eOKYv rZfkfRW5wHJmxdRfb3LpLn FkizKhXIHaKvQ5VUVbKrA5 TIOsSzZlrNQpzU8wYLNaQc GewDhcp7JlGENfCMppBZ65 RCC7Zc2qmEHdAQLodjQ9u1 LiZMbxICwxMgugGKYjX9Sx Q2QwytQzlENtBNOizcRqd3 jyAJA3AJJuzBKdsOEdSzBd CtjwMBS7f1joPHLheQWzSE T1KIrubUXyBSAdIIPuWWxp SqPZSiWzNzD5ZFZeAnN8Ez N7USi6FTTQRpAbSvVpKyPm CHIuAqSvXOd5WJl7XWzQTq C6JAkqXXK4MWCfBQR8LDFd JIy9DANlJAairTExMLBiPY QePTcuVNuuT07xAmHwURfj BkJfMP7jWHXnAktkNqmrtG ObINMaYNKtEN8tGH1myHZa XJTmFoDuB8GrVWXoH6Hulx VkIGZyZXNoIGxhYmVsZWQg u2d6ySW5hCJpwWZ6wUOnqE rgRV6qaSCcQJ4SHgAzzpFx KOc7otbuTKRHHUDmkTBoLI Z3AWKbFfpiSKN7MOCpSlqc kIC6OeFcG84awOAlCpMrv6 VfX0KlqZycfFXkvgRcN4Qd RZFnyJP7ePEny8Fjr63eYV Y5CZMan23jeUWdMve+XH5B pAJmXYQgG3FvcdGjFYqhFN DiVDXeDF5hGVQhumVmpP1g avNuklEjSZUyPQM1ACFtTP K9GASkKoAcjMXliU2hJAhm aXRlIGZpYnJvbWVtYnJhbm 11zmN7zGVhfFNii0y4eXOa FMUyUNyoNSJqp0MynXUhBn LayDKtK8yuYZAeWHesb7Zf OGDqm0O7ON3ddTPgOEQeex BUaGUgcGxldXJhbCBzdXJm YWNlIGhhcyBhIHNtYWxsIG Vny0JqwWYaEiZzLWxub7Gu SQRsy9F4QAYtepO9nRJdJA 52ZEPje3Vok2PkOvIgIYZz TlJ5xBVmIWYhjJ8mQZldbX jkfmE7vQBjaVefOVVtWNVs b0DzvWjoNCKtvIIyrQ8xUI BsZXVyYSBpcyBhbiBhcmVh MY5jMJX5K4dzrfixTx8aUE OsUARnVR4ceM4kipaioKdy dUVvBDxaJRNyFWram63yd5 FwMNFlOKGhCClehVR1vKCu ATPaWPYaZN4iYWVtHpKki0 vcBYUgUMJqDDaud0ieqsXv ICBUaGUgbHVuZyBpcyBzZX OcYOkqnAPwPUF5vE5eMMNe mZ9uciA4ERBkCQQhESieIu S5DZXvECH5ZHQpEINvcNIb aLvpIYFnmH8aEVrkT7SaoT 87yWo9XYI6eaU8ROprr1op VMItqb8qMLDfP5XpwHxzji Tmfd49mXKnwQVutwUeOMGh vU5bRHVmUNJkhXW4vdOvAB S1Q6oalunoNeDuhdV5mJLv GV22OMPgb7Bns7FsGkYaZP 5cfiBUaGUgbWFzcyBpcyAx OgYdAaZmtYG7xFLsSjKuqi LhiWRfBZ4vtyxrlmcoPJ82 RSCmYNRfc18fcDfgIQY0mF 1vbmFyeSBhcnRlcnkgbWFy C9ewYUXlfaWmEAM0uAUmuA hlIHBsZXVyYSBhbmQgdGhl LQW5eRQxpXPqTSXgrHTmq7 VtpXhwg3KkPgHfCWfaTX3c n4MvAS6tdjBifgNhnHIaYH CyJPFjod3yL3u1bz1hlQSe CVGtxrLBpgT2vZVoqG8tTZ Wsq6ViROXyLKT0MO3hESGf DXUrlNGgjM2kbbXujiSoEI XiSpG2ZVDyPYO7JJJpNBEe bSBmaXJtIGdyYXktcmVkLC PnPLT4jMYvbXamQK63yVDg U033oQHhQPRoATN2iXH4UG wyZTVaIiOwwWMkfl6iPQYl ZSBtYXNzLiAgVGhpcyBhcm VhIGFidXRzIHRoZSBwbGV1 pxRlZREPkHAjx5OnHSZrgY KqeQacG6Vex5IvMdwvwz7i XT1ulgSlz3ZzFJJct4W6JA TwisVkLZP8rE3qKPPgcQ9n ckV5GKUhZVOlOD6eVCxrLM 8yRIfqID7fFKHwLHdyuRsb P1rgV6Cjh7AjwMHqNPmiq2 uhbWHypRMyVHWcg4B8jZYv MFYLxLr7tUOqFVWsluHjbl Shj7ZgFbKepO9fpCHlv5Id cyBhcmUgaWRlbnRpZmllZC SoCU0tpI6aCNTmIs5kSeka W70zIH9aViWdgwEsJA20QO VvtxLgi0KkhHjwkcAqXIBo UKP7Vl3ooSKlKN1cD6Eye4 AaiLxtqD0rraYpbIYqPJMg VOYqc7MyCcDiUVStGC1obF Ami7BxpUldSV2rl7Cym7Ah IGdpdmVuIGZvciByZXNlYX PupY0aHFlxz6ChLMNgh9Wo V7QmiGalXOClKWZ1TJnbir 7ypSVlJKPncjHTsxzzP72u ZTpccGFyIEJsdWUgOiBwbG W2kqHrgCXdFC0sWB1tRTE9 XYZblfCnB4g1eMPePV8haj rwynanFQPulNRqSHSxM1Xo x06wS70bJLvbhiqfRYZfRE OoYVF0PC6si4AnxH0olToq dXJhXHBhciBMNDogQnJvbm TprQPvhFGtS0lpMCVhptRs YWNlXHBhciBMNTogVmFzY3 UjERHuuJDsI4ktujzuPQ7w SkZpHXcaKBZaYQY2GBWupD wmgEngst4dQAihPdjgDLC2 EAEqoRCtWAz2WpYuCWp9wG MpRN7fKXHeDCXuk6EqzHJa XHBhciBMODogMiBpbnRhY3 NflGeoqYbzpe5gEEXpmGQv XROkJXNYDQrbXM72aDNmVW 7wHIQlTDKzib7nLJRidUQl LJLjHPSdLTCeJE4iVTEoGe MigULdBsHmuz59sqT6tFEc dWVccGFyIEwxMDogUGxldX QjnVQrmWKlb3HlioPmbq8n OVMkaSPfRX9ad7MdYKdeNk BveN4kFXHdgNAocDOkLpIf hXAtaU5yebyiRCMtRZVuXN 6NHTL7AQ3wt7BnhD1lVZIw tO2xNFU7rXMocFKtjRJcIJ wnWl0GUYE7DQ2ft4GyjK2x W7dgz9XavQToTALbmyFozV 5wfLQtGADsrQ6lKVHauqLd qsIfM3SrKRJak9GxuTjqev bhIVEoEYB7VkMaPAe9uMKw SX8mPDJnTUQmg6DmnPIhGQ VidsBZDBDaZIQ8ZxTLHAOh ZWSnRTNijX94v1k0VARtpO SqQyJbWFRsrwPbuK9iLNNr zbFVNMo9IE1pb6UfeP3iSp JvbmNodXNccGFyIEwyMDpN ZUSgKBsfvZjvsxIqmt6doW WpDhfsT8zxzEWtUGvbWEnz AK8fraFxsODoGZCtFLXhhz QfiF0dOKnxDOOuMPHoFDzj ZaenSviwkUWgqyK4IQPiLT JbaW5mzH8gVFXqz7TaWHNq SFU2MA9rKZIsTQHahFDqBH LnZJKpOSGiWBvzZVHxT3Io B3JarrXmnJRkYWJznqLco7 gaIGA9OZGrhCGgwBOoLiWy OwkvMOX1z9kkJOMwtEQsTD M2SVxcbGFaQLKfZIIiXKda SrYJNlJbDlN0GCRcOdY9Fb N0PUc8YHSXMiYmHiAiTqSm SQS2KLOeIPg9HHh3FLzWOn F4PQp2GNk0CWAlMQX2PBTj SYj2TPEzATxukWYgXYOqSO CjHCvaHCuuQ89eByKbFTRW UlWYpM0bUUSRsRaswDUSfX LjzwANc7RnUabxJMQpQmZx MCBSZWNlaXZlZCBmcmVzaC BsYWJlbGVkIHdpdGggdGhl XJBslDdshhXvS2E9lyUpHV 2qGPMzQSOtE8EyZUQzO05h UIMxlU2zDMZrDG4qOYMuNP JjtcLwAWa0ziznALMqD4o1 IHVwcGVyIGxvYmUiIGlzIG UjTE48FWedBH86HWieWJ3i IGNtIHdoaXRlIGZpYnJvdX PxaUcwu6JfGBEmBLmmDC35 NXN8Mt2daEUoXNQpojH9t6 IqAFvvLH7qNewhDNYoG3Dv O3VxgoAdvXZaQBNozhXuw7 rsLNJ3DDEcnPEboOWxCtXr BuhnEPV0w1bjXTUmhLJiJT I9OZrafJBmJTYbBCHkCJaz IuMBTbScKqR4WMJuJaE5Bs L7WBl4NMJSJqZnVmIgTdUj NPX7FeIhHMt3NOf9GLkOJw E2GQu5ETo3GJJzMYO1OKJk BBl6VBLwKEuluSPvJGPcZM DzXZekLSfsD25gUbQyCCRF DmEUdH9eCSKJuKwxiPXLyT UkziDKw4MaAqbpXRLzSdAp MCBSZWNlaXZlZCBmcmVzaC BsYWJlbGVkIHdpdGggdGhl BBIrjRgiugRjT5S1geLcCE 0vJJEiGFXvM2CkFHBpR23a EAKhaG1lOGDcHR5dLGPmTO RpYWwgbHVuZywgcmlnaHQg ePWmABTwqJ7sBLHtiXUzUS AwLjUgeCAwLjUgeCAwLjIg Y73ar7xokTDcUsdakv75xc W7hSSwdBHqUxZcB44sniIl h5UntNd7uQEeYFxcEJMecJ 8auV9iOySxz4yptPmex7Qn dGVuZFxwYXJccGFyZFxzbC 6vNdKyx1nzpGd6IJesezO9 VLFihx77DThhFKJjN4UsN4 DlGWigLGG4XQMrAhUqOQQl SD1DDkJdJCslBFXpCvipWB b0JRn6QY8AIsTvNPWyQsUy KDwxKDIdBAg9REkvQJ7QUG A3DIo9LMR2YTR3HAx9ZTHx XHQgMiBcXGZsIFxcZiBBcm nzhDRoJT0umMtydoDfWN4o IMl7bqpzCJWoO4i4KIMzoM VyIExvYmUuXHBhclxmczIw DGExM7HfooUlRQBfFCMpUO ndLjWzXZWlv0c0yZU0dRHa fGX0ySNilAbeNqIpFU7bpN NoFC2cHYrwYRgtlhGyt5Oj OG17wXVvpiUbwoBlHvf3iv wwPKSiT0l1RNSujHRsAAcg SyNoTqlcWPdgxUTqO4ruOq RfmaQyIHVxJlW5YNXzSPF1 PZJxPeKqkSQwF6nbJUjmyH Chy3DdBwO9sVy2YQZeeEMj r9VyKDGpb3O8APSrhjUbcV JadJUzu4EuzLy1qUNzMVmi GJUwsC8bcC1dRsVkb5btjU olk3InoGWnNOorOJKkoAMw MFkhbG9eXeLiw8rebYr6UH ztcdW6DCCgob30PNblXMUf I1YqU1AaGLvpCAF7PMCaLv CvWHMtUZ4ISaYiSPpdQJQp XqcoXBt4JQe3RA8YWfRvTK BvPiTmNXK2VjVqXDi0CGrf RS5RXFG6CDj5CXLxFUB2ZS k2AJIoCVVsJoOeMIXaPRfq SvZWcejcuMYqIE5nmNtjbc ZwXSFsWKp2qCVyQQ7zPPBt LJKpiliavmMgGAMwO6Bhig VkIGZyZXNoIGxhYmVsZWQg o4e9lQG3ySRhvZY6nPPjaS wiFdKgPM1pkNDrHM7pELzv KJothvKas0NfTZ51xEYhlj BhbmQgIjRSICMxIiBpcyBh IDAuNyBjbSBhbnRocmFjb3 KlFpKxuG6neXBdi5AdPOhl oZmlDJEyuBWxhXOimG71vv Oye7MyREA5BGMuDCOyBIDd iA8hWVW9qUGzvTJxgYuqbW UumsZyrYEuR0XpDXQ8yxSx TEFkXOmrYO5mLMRqNMOxHa AwYAispOVdF9B6jW1qRsKt VGhlIHNwZWNpbWVuIGlzIG BerYlwBTz4TIA3Ds4awYPa GAEcvcYHZI47AYPafUSiQT X5SF4qHGGziudnAVYcIUAz YDO4WYaomU69nUChIXRmGY IelQDerCgrLpzdwItak8Zd dCBcXGlkIDUxMDAyIFxcZG BpD1QMLYPeTPIuVmWlBVYn FWi7VAdxB9TIOJIuGGVgCS H3COx1UsK8LFb9YJYQDr4d Dwr3Ost7FdB9QJC0IHwuFG xcdCAyIFxcZmwgXFxmIEFy uJXlIYspcqD6PVEyXkBwMF 2lPLvoaHjwHz8jMY6miTQw MNHvBfJaTsEjFPv3IZUeJm Ieb5yigSLoHXfmGGR4lXXy PVGtJLIkXMOnIE43SBnbCL MgbmFtZSwgbWVkaWNhbCBy ZWNvcmQgbnVtYmVyIGFuZC EsIFByWgBpZTblUAKkFP52 IGNtIGFudGhyYWNvdGljIG g7rPRtBS1wXOFja6u1dGNo UEYoQMzxGPHat0EzbEIwMh JpvMOdY4plDUHePQwpi2Xk MUZgb5Q3XOR3yST3LWddUM Nzp1DfmMFiYMFyANLvmuNg cePpxCAvlMWrvMY6MVHmaC 0cYLPcIALekmxeUZFxL9az iOYkMQZMjdB5cifvYUbLBT BQQSAoQVNDUCljbXtcZXBp E5BgM0GczmK4k8mycBivk8 AsbMEsUJ9hmSMipA== INTRAOPERATIVE b6rhxVPnCHGxsKJ6RbKzWB CONSULTATION (test code Yuv3zak1BysCXvaVGkDQji = [id number]) lTNkmzQavg31iQS6vB94NP 1gZQVsRdE4VNNfijN5Cxq8 SKExEPWikHDtK092r0luz4 qupzDbeKW0zJmnXQXxifdz JiI7LPogRBJmapfiWTe5RN mhXLHtoYX7TXJicYFfA9Bh KBUtYB8gizz4IXS9WIsbQP VjAkJ2DXHyiCNbVQXjjTgu ENxql656OZO4PwGkRTWsrh D1MXiwUBMxJ4GeI8JzGVsu AZM4MDVnTVCrTNEaYLCzYF EsNWcdpnO0z3usZHCboZBc IRQ9LVvnvMLdYJIhZYHeLR khJhYPDzFyAcD1CJMhQjD8 KsI2GNu0JLRTHlJoPtIhOi AdGIY4SMnjGIa8TLo0NDyD InW4WKLoANHaUXvkNVS1LI AeFKv5VZXzXAawyXUhKNMg TPHuNCuxFKgpH44agWfvbG 5cZnMyMCBBLiBEaWFwaHJh W94hVBUqlktdtdNnXJMIGQ BIUkFHTSwgQklPUFNZOlxw YXIgLUNBTENJRklFRCBBTk ToZZnWZIbJXSbOLUWVL3GJ TEVccGFyXHBhciBSZXBvcn TzUUPdcFFNxn4tK237KHOq PEJyGoZYdKFxGEkia02kXs 74ViZwJuWhXFK0JPB7EQEq h9ompUben3HrpCZfNGecYI VmoNWoYIixeY1rJyLyi4qn cBw1IFlyxaQ9XDZllp15BV inARZkG1TbE0IoFUmyGRI1 WWXcXsMgFLEfIY9OCkLoVU lnDVLgNqywBMm8TIw8WD0O IxSvLNJoFgRoQXY9NLAsQP w7QGgqWB7KPXO1SOI1IYOs VYJ1XYm0CXCwCOErTmXkEY WoAUmeHbBXfapboWDvDY5n pIaylxEoCFGtQXu5nTJiTX 5vZGUuXHBhclxmczIwIExZ ASEKBH2KJPApDEEJOGNBC2 1nQfcnIIaPTSUHV33gBQOG DXCEFGFHJfaxpLMjDS1QWZ dHLXjAAFJLE2XxUGFOWQkR AG6AXUfwPGQodSDyOYRliG 7lgMXuXGM0XAWySzAWv9tu pG7wXUDzIIUasFpfgARfif AzLzcvMjAyMywgYXQgMTA0 Ct77BPXpyMFeFFK1PU6kTQ KqvgsyCTGhXPIzITG7LEeu pT14gBIgVQYaXHCbgIBdaS euLvgacOesa8XakKEjIQot MUJcDUDmNQhxVKYsZ2BKWV PzGGKgLvHzVXTxWHg3BEwy R0JDMELwBCVeGNZbRTY9Cd O8AYz4NZBCZm8pSsipCKlq PwJ6ELY4IUsxRLkgpAKrHF xcZmwgXFxmIEFyaWFsIFxc cyE7ROVoPsXdCl7kVNHhWl qsVhftsLYmHZMhYLUjZH7l JM3kpUUyGVMyRsPqTKPXBl eoFitFMMKiZXJZMAYoVG6J BFJVWc9CS7uVBFseHGBXY2 tXDqpqVXNxGPLRN4fINMYG IKQILxLTDHhKV18BJuANOQ YptspbTLXsKiWpv3G4BNKa ZobuBPJnLEQfxVL6tfJBkh 0kKgwvjRV9ME0sQGZmPb2u EVSmRUEksMUwNsZ9YdaiVY FaZ4HzU1MtxxDzfGPkOMNa ctJyc0gmHBX5AYSchMKchA CxKfYqClxcIDI8c6ioZWNm eCWrNPK0NCvdlNTkWQIeIS ZaSRplQgSFOpWoIjD0KURu YlL6VvF2ONy2RDLTQzHpYm BhKgYsRDGqBHyiBNk8IVq7 SWkFQqB9QQDzTBTtZJBrCW D1WMXwZSc0SZMxFGrqvWTd VBQsTMBzYDtkHKcxB54cTn MnSRCIWjJOwP4ePRSYzYtg rWOKdPQlwqIIh4KuTkkfAO JcZnMyMCBSSUdIVCBVUFBF IyMUD9EKTUGHZ18TKGgYCK SZXSBWAI7eYTCHHvKXXOIL VLyjMMkMGOOZX745NHAuau JtQVYMV8GqEQPHB9IDDNYH LtFOIY2KGSEBOVSkW2FXC4 QHTNRmtgVjVt3yXNHHY7Au SURFTlRJRklFRCBJTiBQQV QPHgXYOD7LAEXlmhpqMPYu EhRcm0E2WZOlMihySFUrFW QqfUH0gyGAql0dWbpttXT4 EM1iYUJsEb2tAKRvYTDzaG QmPpS1UnqaYBRfI6ZaQ8La dwS5d8llgTfbw5AhdRVwRF 1ccGFyfQ== MICROSCOPIC DESCRIPTION w2moeTXxXNXieRO7AhMkXB (test code = 3371) Otq4iay0SkvNJqtFJwFUbx cYWhjlOudo67rRD6aP80NQ 2gYHPeRqB0ZWGoggD3Ywc4 PYQxGHXdeWGtQ992u5qvl0 epqkZtuSK9wBmnVSEujfrj BsP8QFdyUUQvoxbyUPf1UJ hkKNZpzBL0AAUenQQiB8Sx LGLcXA7ohbt2WVY1UPmjVA SfYrA5WGKbhDHqPKWuzZii YHgkz602VUK5LxFnMEDuiu ZyiQgnwK5dVdJyXPOMWGOa j7PuHWJmfNDryI== [facility]10[facility]01 16:43:29 Test Item Value Reference Range Interpretation Comments Case Report (test code Surgical Pathology = 104) Report Case: [id number] Authorizing Provider: Izabela Galvan Jr., Collected: 08/15/2022 09:30 AM Ordering Location: [facility] Received: 08/15/2022 09:37 AM PERIOPERATIVE SERVICES Pathologist: [...] lymph node #2 ADDENDUM (test code = j2jjyHOiZZPrjRJ3DxBiXS 3381) Quc8eac8YurETawHZvVKon yJJvqnRxzs47sYL2zW04JS 9kCFDsDsP8IGAptsP2App2 KSNdSKYbhCOjI529v1aji5 dsmaAnaZE4dKvtRORhhavs IpC8IJcxKQSitjsbXLo3FA yfYAHkeVC8VCZyhOPaL0Xs OHMrFJ7dvgf6CLR9TWbpMY WgQgO0LQKerTLnUUWznUci BOuwx678FXB8KlTdCYNulh HclVunzS8rFuOaIIJLqVkk IGFkZGVuZHVtIGlzIGJlaW 8qAMzss5HwFIY9egWuLQCu ckKywsOuuPv4hnMlRcKLHI utYTFkbI71wg7asYRutrNy NQKbo8CqDVNrKMDhUjJzD6 Kmp49hB7NsFGRab5CcaP0u aWVzLlxwYXJccGFyIFJFU1 VMVDogUERMLTEgKDIyQzMg Q4ycyiZzMpIbaOGoVGJcko BVDPnyJSOdRoNRFoBkwJ5n YYk0II5QFALGTKNEPRSRIL FlFNAidxFWRFIpH9AZEcV9 IDBccGFyXHBhciBQbGVhc2 Mah0AjPCJ5tFVuzADlRDUn AJ0xDTWwctMat3R6IYHwpg XhwZV4uVEiOEZshRRpxXSz cGFyXHBhcmRccGFyfQ== DIAGNOSIS (test code = h2bsmFCoUELlj8xwASZayX 3220) FuZzEwMzNcZnRuYmpcdWMx IHtccnRmMVxlcGljOTYwMl sqamRpZTHvpLKuO3Qwjgbk JUfsSU6kPP8kaYihlAFwhG HqQWGtSeTqa0aes779vZIq q3rsXNEIutqawXe4qEjmN8 3uz0P4BjaeW6kkWJWpFQeg cfMbcrR4RWIdrZJqRXh5SL BhcGVydzEyMjQwXHBhcGVy fBK7MZKuOZ0qcmzfOFuvBB uvUIUmzmX9YSNbjTRuX0Jl GGJbQB2thxkyIYL7CZhvWG WmJQC8RfRiOVAez1Eoilo5 MjBccGFyZFxwbGFpblxmcz UpZPNeSUDPYBZWFRAWF35q SLGIE3FIBYNZU1PzStICWk CXBDVJU5GXX748PNDtkqMw BWTzZdAZYSCMShHdJf3FNT 2DKRpRNrSLG2wclMCjIJIt OCMZN1MBYpoITaJCThIoP8 jJA71KYuNILbMFAP6EYHWM R57btEFiOOLyipLHBkXoYY wQRJeiZh2RBQapL6GFIFyM DcQcCCVVZQZXEQIMA3ORT6 46XHBhciAgLSAgTUVUQVNU QUCJRhQFVVSLBO7TMqQTWX PPUD7YAGGdJG8RL2lXUM2M TFHjX9WqIeGGWQ0VTNYPI5 WGQmQkOZ0xVEihSGCveMUz OBNrZETHGQ9CPAEPZ8TSMP DNZFIWEA1FZRgxIZBUZ4MN OOnBYqFRX5QqDwKUCtGQJO XUA5AHK743ZKYxllCnYSPa S85GMLJFOxuIGkYDCX1PPE QFM5WKFFxgJdHeHTUscyxm YXJkXHBhciBELiAgTFlNUE rkLr9JQNkqN8KLNTiDTmS9 OSEfSPSHDBVTT8AXC147ZJ BnwzAtYEHyP43OXKGSJocY XuPRGR7MHAEPQ4VDEKpsOu EpXHBhclxwYXJkXHBhciBF LeNwYDxUQQssXf3IQRoaS1 XCONvSSdJ1FLJiNNBFCHOF A5VAJ878QNGigzVfZFWrL3 7MBPBIWnfFVpVUQI5HQAUE C2ZBYTxyFzWpJRWeexweWW JkXHBhciBGLiAgTFlNUEgg Iw1XTTirS1SQXTmVAcBiDJ JIDCZuWQZRWMUBC1EEC367 QAYfbxSwJMJdG01HDXZXFp tDVsFXFT7TLBOGY6SAMVhz LzEpXHBhclxwYXJkXHBhci VVFpVqAQaPHOryGb0KOIrv W4EHPUgYReFgGOEFTOVaZX MHJKWPS9BNA599RDNmgzXj CPNjM20DJWXKWmdAEcCYYE 5YJAFSF8QJUQxyEqLyHPJi clxwYXJkXHBhciBILiAgTF rHGHymEp3KBMppV8AXOKyU TiAxMSBSICMzLCBSRVNFQ1 KKE091EEMsypBwMAKtU02E CQTYMfqXQlVNAH7UACZZQ8 RFICgwLzEpXHBhclxwYXJk XHBhciBJLiAgTFlNUEggTk 2BGLpiO2MLPDxKXxRcPVAI JXF8OXOLXQASX0NBM387SN NvbbLxJNBeM49AEPJETyhN UoHCCI3SNLAFV9LCLGlkGn EpXHBhclxwYXJkXHBhciBK LiAgTFVORywgUklHSFQgVV RGIMLxBL0HHZdtYpZOVqBR PMAQTG6HAkmAEyMALO3WBr VKQCgpBnKJJjIZVOWOK3QS G819HUCafxVyPZEyZ0XJZL 1OJWCpH0LTHCPJRUYLRP8U SYStXBPCCjABQX5MTzrZYj TvOtKJMLFFLuR9IUURNMML TUVOUyBNLCBOLCBPKVxwYX UntYTmHTvtOVAZXK1KZPNL BOkUAQOHCTFLVgDGI0GSGV KHXb2BL2yYSLldBHRJU4oE IENBUlRJTEFHRSwgRlJPWk IGIZJGC5HFA893PKZqumSf WLTkNWFFN2UbPVNSS5SINI BYErWIJF3ERXQZHTNaN2EU E8HYCPXeagHiATDeWqVKIx CRYLRNIN2IHvpQNmPFHm6E XHReHJ2AR6AZXCOBWETYCk HKTNbDP96PPmQSGDZnducl CKFkON5rMYfZDwurNOGAS8 hUIFVQUEVSIExPQkUsIExP DyOWZJ1WKXihlVAeOJLqEN x+LSBcfklOVkFTSVZFIFNR DJANO4BCCSNHWGppD1SSP7 rHH38LCYQLO1SGLdINDWMK AbXRK02LOKroMEhZEjSLKN 8UFDHBKTWauDNhAQ8hGUr+ CECDX2PpFNRNS9IEJIAoJJ 6xHYtfCj93ZPlaZL0xBUGY XHBhclx+HKZefyJRLF1ZRN hQYcJVNRLyIxtYC3RDCEjp UExFVVJBXHBhciAgLSAgQU RIRVJFTlQgUEFSSUVUQUwg LVyHVMCZAOBKKvbUAd5PTz VEXHBhclx+LSBcfkxZTVBI E7DBY2JDQAMNECuDRnIOHC 5YMTfRHMiQIL5SMJMOOINz qRXdPJ7oZUw+QlJPTkNISU FMLCBWQVNDVUxBUiBBTkQg OCRQFX2QULnSEQcaQdHDNY LMMO8BXG9NYvvZMsXjVE8B O7ZUTNTFYWPFPuQKEQyXW4 7UCnSTAAIrhwz4OUGfWMKS Eq5RP7hDXNuzJLAYU0hXCi XtJqEzM19kLYoZDZmyIELn kXNeWM2xPfPYE0XCKKGiEX JWA7rPBpZhChLjC57xARyU OSwfVSYvrKAuKB0aNLEPKR 6NIIsIDWzdVLDMO6lBPkYa SfUfW91xVKxJBIipBQGrV1 WtTGBjPCNNRRNBP5HETBaM VFQBXQEWV8PXKAQNGwOBMb 9NQSBJTlZPTFZJTkcgMSBP DaT9IGkRYFICPV6PTFEYXQ kbNdGmBZXyprgqMrIjKK2m LSOKDY7DO0fUOQZgYYNVXa XNASZNXkIRLZ0VYGGSBBCE KOSEBcpBNo1JY4pSD0wLIm BQAKEKBErJE1sNLZJVHUIq uLDvVYGzWHRuDr5GRHjoPI nAXy8ZE89XRIQrHQ7XIRzD I44KKE1VVZZqhtj+LSBcfl RAOLyFKW9NCWFbJ6WFJ7rJ YzwhbZH5TjZFqCCkNAzEIe D4bAziBDYdNEyiDyOoLGfp USJrcFCjKSrwALOzFG1cBJ qGWkymPNSHX9zYSMSLYDJS SZgASwNkDEEPY58APItNMW FGENSATE4aADFBRtTULcQt RClCIBMDRXubXAFKO6YQJV lPTjpccGFyICAtICBORUdB EWyREGITS3ErQRXMEUsRXE 5YHKyoXDWqzMBlLF8sRUBH CX2QHSWISLzAIXCEMRDAFe BXH3GZHBQQKf8CX4aCCXsv AKGKH8pNDN9KGNKLPR5GDI UJYPYYAHkyQFPCQ7ACDPzD TjpccGFyICAtICBORUdBVE iQNPTMH8ZcKOTEIUgHTK2X WVxwYXJccGFyXHBhcmQgTy 4gZDyKDscxGQMRT6dXSOOY VGZATFcBZjReUSLGM44STF aCKMRKZQTVKX2vLQJSYgUP TkUsIEZJTkFMLCBSRVNFQ1 BNW324ZBIhipOfZJLuZeAN HMEHDuUzHi9TPG2JWZpQOa KDX0spsRMzLBHrvaevXBPd VDYtORDYJY4DZBVHZ0DPDW LWZJYTXU7HTJZGTDLiQSXT PVXOW6PNG461UVCuknGmZD JRMVIVZOSIOouLKeBBQH8R UAMEP0JCQyEhRH06EMvuMS JxoDEhTVFjNRsAHWWMJY0A QWZrDYEWSDNRR71gXZIzHh CzGVRQV8QZHQaLTbegeYFu ICAtICBPTkUgQkVOSUdOIE jKEHSKSZ6POVEyMRLaMHiz zKDfwZropfHlJZdgb2SaSY kfFDFzFA0ahCvdYRIlBQ5h QWUcX0zkiA1suii2RxSqOI LoYcV8FFKhptN3Tsv1YIHm KUbir2knd3ScRVHeDNd2oG coLxPjUKJax3feswEfCqOj CPPxQKQmERMomACuY196f2 zhq2ruxmBhrPV0PUFsHZY7 UUofbpMjsnP8AZnjbVMkUk D0KNxuuzYwVLpldsUkjtFc Fun4AWGrY100IWZ4iSeoa8 xfZAB5FNReBZHoOpXaVv0k rQUxD204HKYuVZBGJKBmeZ g6MSUxwqQuqaYhaWUSl957 X906i4hnWSEzyxMffVrVxa wwq9uuO746WFSzaVEwvcTz SjDiFWNonMCgtOX4OWVuBS 1corggYPyyFEdpOZAkdfV5 WZGofPEgG3OjWZAwVC1gnv vbEFM8KGafEMUhBLX9PrYq SYTlv5Ygnjw1VlWllx0sed 29JNN0a4CzwPuyTBH3YWH1 BkDuZs5geIBsFOAeRN1hJw VwrWPcWWCblj26sVyhOCza TID9ZWXldtIcm6Irh4daOf RixzRkS5erO5AtJMWnBHMl ENEnKeYftgGqo4Ldw3DysI XanZd1b0mrPDRcFDVkaClt f0ozNIZ7UXIhpKCwP5oqdJ 5tFGMeVQ6svokmb2bmINsd ETtjZZYbdMG0onP8IYZibK GdN6QmoK2pPWJwYWbyZBDi xmh3XeYrHz8seQHtoWboMB xzYmtwYWdlXHBnbmNvbnRc cGduZGVjXHBsYWluXHBsYW luXGYwXGZzMjRccWxcbGFu ZzEwMzNcaGljaFxmMVxkYm BnHSPyRZomQ7wbTbLhOcYl Jpn7MHSvfGZoMDBkLbm7YZ MyzNDkDLXImRondS3wVOVv aPwniF5leWV7AQImifUqkE QCxE5pDFYOzI7gGgQ2RCGq Rnz5OAM7KoOcpVDjuM2= COMMENT (test code = j2eclETxNLCxwLN9WnPmPM 7460) Kjs9rum4HizOBcdSVwQQyv eOCmnlLwbu44tFN5yL23NG 0rEEXkIqA9DDCwduR6Sgz3 RNCzQKSjwDCyB809f3vus5 eunjYtfLD8pQubXWJszaxb DvA4MEzoAYWvjhccJZq2OL ceETRlvRZ1WOOmeMTqM6St YSNaSL7tozc1BZE7BCwjRM OcLqP4IHCeqFCzOQAvvHik QBldu051SDT9SuPyIQIiqe LluOrjbB7iJqHqKEXShV4n YXZkNJPae8U9DSh5UZPxmr YWbM0vonnaMMWbAEYwktLS e8RwGVq5VWzyGDdnHFRlmV DlDMY2kE5wUIyigRpjWyIn e2UcyLB2ocPLWU9oKE9quR xrctWgx9CxZkchyYXef9Um CBOrw6LckuelSNOlt1YqyR Ulx3gfsJWnSOXhPYUackIc URSnntLxtuVlBVTvieH7fZ 5ccGFyfQ== SYNOPTIC REPORT (test LUNGLUNG: RESECTION - code = 5765) All Umlpjykcp2jw Edition - Protocol posted: 03/01/2022 SPECIMEN Procedure: [...] pN Category: pN1 CPT Code(s) (test code d0wntBKoUIEqwVX2CpHjWV = 3357) Tkw2zpd2NlcTVpiZNyOIsn aNYsngHigx51hDE7rA61TB 1yVVQgRvH9OCMjkrZ7Bmq9 NGEzMJCgsTKnU300y9ltd9 jcwvZbzUF2kPugKAHcjnxk JuO2XIgqDPAremhyGHo3GV icXHUndSD8WDMbgUDiL5Ol ZVQlRP0mbdp6KLK4DOxhHY IgWkZ7OIFoyPFhULJsxXiq GLhmu672XRO4KdCeJHLtjn JirFsqwF5pUeCaOLA5NXTw TIo9VTXdsbO9DGHcH9jkGV AwqwY2QTCkBFgjWJUqQTsd MDVYMTRccGFyfQ== GROSS DESCRIPTION (test x3bbcXFrZUArtUG3OjZvRN code = [id number]) Wwj6foc2YyeLLltCXwVCpo gTEhumTsmn00cMA1wW24JP 0rBFZvLcV4NYAtywX7Ybb6 VJVxNRFctLLdS027o8mjx6 kbdtLpwKM4VMHcOSOdX5Ao AR0fJGGcxLMtX94lbYIaOY W2MPBhFJCcdWRfPSOcBCZ5 PHCdmFHfP5twXELeAZ8enc diSEmyEMbdQSIztUP9YBEk jOWrD1MiJYLgZXpdLBSkxl f0EhQhBe1wkTPirNjuIDmb JTYyz2asDTFasQLgFRH1VP ufmKUbYEDlTPJxBSy7LEMh ATmmaPBjTP1zyQapApoynM gmk6VqtTOtUWxgVOJgOJLu FLhaBCBdI0LFDQUfJAUxZc XqRAWxTFg1ITivO8AMIVWr SXMtRRGnNUw5FpC4NYg4SI DCOz1mVvb0VMitSGBaZHI1 OTkxIFxcdCAyIFxcZmwgXF ijXPKlnTUmANcsgsB2JXQw SVqtRUGeMfVtED5kOTeqnF hyYWdtLlxwYXJcZnMyMCBU cDNeb4PzK3vvSP4nsVWjjo SbGWe8NFFnAkGcw0zuWw7q IGYjz5bfckApATO7fN0vBZ NcFQkxu1QvjnyrmDIjPFne BTQ7lBNpCPHhAITgSICnIL 50XCdiNHMgbmFtZSwgTVJO IGFuZCAiZGlhcGhyYWdtIi BpcyBhIDIgeCAwLjggeCAw LsClI94reDBuSTo0pPPbOX RyviV6NWwruPAmMTNbfJMy w5HvGsY8oYQxiPTps5LtiW o2pIDaIAjeYJWhsF2bmX3r EjJjPHJat1qgnPmzm9WwnZ AgZCaoKRNntKPwKUlkjU3v IdRbh2elhTo5PWarofE8YE Camq69TOabCQUnJ5QoO6Br DYpcPXW0CFJuMiApGQNdNQ 4KXzWzDFikNDWsGflvMOb9 CGw6FL6BYwFcQUZmTgYoOG Q5TxQgHFy6UUelIL8KTWT0 QWO9HNccGEO5NQg8XYUfXQ QgMiBcXGZsIFxcZiBBcmlh lPLfSY6zuKvtfoKxACHsWD f6bKCfMD7vGHUdPOCzqwkf czIwXGNmMSBSZWNlaXZlZC VspvKnp2YwJJfsjjQsUGGa bGVkIHdpdGggdGhlIHBhdG ouydAhN3E1jiTyGV1lNBWn SJKyO7FjFQTxW07iXCEmxU 3aYAJzKA0qWFk0JEIhSUFa JzkzMTAgUiIgYXJlIDIgYW 92jOOdN540jSCczDpugGbl wi5rYMOtvIXvb9KrrR9pYE XgSEQrfNQbrsBuLH84HLBq LiAgVGhlIGxhcmdlciBseW 6ouUMxa2NiLVkcXYStg1Cp xBDgLJEcLZW9eYVjl1KbK8 csNB8gpHLoHI98rCQlsSqx i5XphJj2zKGnOzzuWTEkoC LeMQQtW2Pyq33zJ69dRTqd cGFyIEIxOiAxIGludGFjdC ZcmV0flKBzl0BtOIFsumHG Gt6JPueaEXQtuD2mxXAlk8 NuLWIoxNAwG5BlSYntSBQs E7MdF1DtlzEhmOSsFRSaga Dop4cwPLX4DQGqbLTmwHAk HdOtSwcgSEK1p8glKAKzfU SaZRR3ITzjwLHxBGGdIZKk AGetCuKBLiPiDhZ5SCLvEa T7ZfV4HSx6GJMHKbYvGgHn NyEzSAU3AGBmCTy4OEr2DK tQXsT1AYwlOKWkKeArPCW0 ADIjFDx4ZICvMCyodSVdVZ MdRYNmMCemYGheQ12dCwYs HVymLzTxNb1hJDmtzYknQs 0bXW5dmNUtXMAjCmWkGZbv IHNwZWNpbWVuIGlzIHJlY2 VpdmVkIGZyZXNoIGZvciBm ix42LU4ud4WqlGuxqrNzdR Ieql2szTSwMOgvLpXtEYZt x3a8lPX8xDFfbKF2fAMzzD klCmYkWE2yrIBlCV7RVrPs smBuSfw2BiJjsyZgXHEfXE Z3FIHfKJE2DJWfTjKcmQIq guGkhsPea4EoGtOdeH5ghI Dfz4YpKlYcTUeqTIQyRILx aTUeVUmvYXOad5FgaIXlRY FuZCBhIHRvdWNoIHByZXAg hISpzSTaGI4mLAKsALKycL CrsS4bmaXjsvKjxgMkioPi rTPunEJmzGQ5IOLibF2eDq TjMyHqh4dfsXazb9LlgMOd CIskGZZcnESuPFpseF0dTk Tqo8zofDp9AOotdwF0JUTz tn28ARhjNGXmS5IoE1OkPJ xhYIB3HAAaVzCsYCMvDV8Q GqUcJRsqKJTlUsymRMn0FF m1TB3PEqHkZICaVpZnAMsx IHSjAGp7XPbiKJ1NVTY2BG J7GGBjKsK1QWc3CQGbEGFr MiBcXGZsIFxcZiBBcmlhbC NhKO9cdUdhvvSaUIZhFFm5 bYGsTE5iRHZqLMSukxitfj ZyYDToS5LaarDpQOYoAIGu TIzgVcMoBGKux0a9mMR4vJ XzuIK1hYVmtFryDhVjCY1s qWBkEG5rPMtvQXemzqTjh8 MmEB62uOYzlyVtkgIpRrh4 IiBpcyBhIDEuOSBjbSBwcm C0yN01d4r6QUyiA3nbKKRv AF21xKMsR027wNMrhOlurO jwof7qCLB0fOI2SJttKUBg q6SlwDHmGRJmYRGaokShbn BpfTGhdOYgrXF4FRYrhY7e QYAfBUEwx8ulmXmno8JpwU IvBSwvWAZzoECvOYwduR2w ByDgr2fktLs2OFfcrkM6NX Mafh66LDgzVOGsX7ZcN0Wt DDimZLB7NVGpRkZjGOBsQB 2ORjIvIOasEWDnNwohJEr9 UVu8DU8WWbDnHWMkAeBaRC yeGWFdJZw4JKwrZR7FTFK1 QLM1WJKxDQF4MKh3NAHkYK QgMiBcXGZsIFxcZiBBcmlh iLXkOM0slUucmpRdQGLxBS w7jPDtOE5uSKXjFPIthqbz xmDxKFBsF9AddrWrUNZdYE MuCBaeLaZtLGZii8y7qUC8 aLFsaAN3mVPdwCqzZvEbLK 1ubVUkWW9dNPomBGohemJn j0AtSF09lYJefuDvtbXgRy v3TUOqTxTmznLcKUDmStS9 JAQuXfJ4LFPzIVBjoTVoxf NhmiLbw1WcVfLmoH2tbUQw w3LvHFwluUfrJPKokPStnO LfaV68weQte5CuGLW9TSFc ZMXgZSMqtN8bYDW3yKTesF XkASEGrCVlrJ6pfcZjvtXb QJWiSElcyIFdCHM1mF9bZO XdBF5uYHHmnXvuHMh4LWQ2 Mt2thYDaWUHyfeTJGM7NRE 24HZNlyFGePWY3HZ5xTLXr jnluGEYbPEDsNND7HBpyaZ 11bHQwXGZzMTZccGFyfXtc FvebzZxpa8OqpQTpUKzmUI QrRZSpFYyeMSDpR9TATHOn FOUsEmWeOYLaFQd4MUooZ0 ZTICIgIDMzMDAyNDgzIiA5 DAi0UEAVBw1zWtv2HeU1DV b0AMX0ZSblPQdloXQnHPzf ZmwgXFxmIEFyaWFsIFxcbm U9LNEoEwBwUj6gUYtgoGee Mz4pZL9pmBWxSBDcWaZoQp VbZKk1UAUkLfUwf0eswQIp YUehOWJ2lMZoQQRcSATdVG AlUE48QHopUKVtriJuREyx bWVkaWNhbCByZWNvcmQgbn VtYmVyIGFuZCAiMTEgUiAj NHCreMDzXMKqCaKbC46hPF 52bTYxO937jBPrxXfkdBhs gr3eGSHrrVNejSC6YVCpsJ 7kyI39mrKbzfOMQA47MMRq jWQfNTZ8HP0vZJYycbjgRB LsVYNiVHO5EBnlnO77iOSf XGZzMTZccGFyfXtcKlxlcG sni5MowUYeXFvmEPIkDYHk PEaoPVRcF1AYTXIdCLKyGs EsKMKaDVg5BQajP8GDCKLp KHXjKSTfNPWfPsI1MOg3ZO HNPy8lZcz1YbB4TzRrCUI7 OTkxIFxcdCAyIFxcZmwgXF axNDWbiWFhNCzxzbZ4KHIt CsXiQn9kBBdexVqbFl7uZP 9cqBXhXCRiCoQdKzAoVWf1 QNPoTbTtd5yobSWxJEfyUM N0mBJsVJWoWABsDCLzTW55 XCdiNHMgbmFtZSwgbWVkaW NhbCByZWNvcmQgbnVtYmVy IGFuZCAiMTEgUiAjMiIgaX UbFYZaJwmiL53sJM49xMIk S795fFOeeLzxjMedvx1vGS U1pNM5RKstHWDkn6AiiHHx IGFuZCBlbnRpcmVseSBzdW RhnXK9SSNueN5dDwDoSgFz a3wjmZqxz6OuaJFuWAlvIG BwwQKzRTjoxP8vRgHwm3qy pJv2NQtokxJ4JADeqq18TK qcRXNxE1WsR7PcEAllANU4 UNReIpNvZCZdLB7TDvSeKI buOGNcEadbAZu5SEs6TE5F UyAiICAzMzAwMzAwNiIgOT u8LFiyQS0SJPJ3SLH8PLLy EKH2DUo0LCOkEGMiGeVnNX ZfSRxaNySWwmduxARdJR2q xVxyhvAsIYnoOKc4nENsNJ 5vZGUuXHBhclxmczIwIFJl Q6WyuxQlIYTrSFRrAKrtLk UpSKKfj4p5oMJ0yNLmnSN9 iQRjxScxYcGaNV7gkFSmUJ 8vRAhbWKylzmPgn8BkWV74 bWJlciBhbmQgIjExIFIgIz VzNBsuMZSzUG8mJUAcLUTq oHvxMJCjqDjaJVy1hWJuRV 5vZGUgdGhhdCBpcyBiaXNl B4DsNEFrtwJbTP72gPBqhD vit4AoqMt1mYRyUTcuGMbz VbtiXWIhQ6LbA9JsrcLcxR YgOQYtuwGyj1jnJTO8QKEs uYBlyMQrAqBsKmyjWAO8d6 bfWTNqoGLaEEF8QOzxtGRe NTEwMDIgXFxkYiBPVlIgIi H8DBIsIzB9EnD4CGa2DETY VlMgIiAgMzMwMDMwMDciID k2DLs3AHzFTzR6NHnwUwc1 VzgcUBQ9WUObTYf4FULzBO xmbCBcXGYgQXJpYWwgXFxu F20aCsXyMBHYCbQDqU9dtL QMq5CwUzhbGXShCaHcPXOH ZWNlaXZlZCBmcmVzaCBsYW JlbGVkIHdpdGggdGhlIHBh mUeknxQnQ1V5iwPtBD3tFL EpZWFeQ7CyDDClR60lOGXy hM2aRLWjHU5wDYHqIOWYXT T2RfOebgJlWQTkFPQskVKy djUzzxIyg0HsNgJpxK9uuS Oxn5GwUZWpKZptMT53CCIz xC33psObSJMaOLNpgzXjgO UdcGR2PPMgcG7kcJ02vzUg svUQTY86JOKigHMhLHA5HU 3kYOEkzsdbXVXsSXWrGZH3 OEgkkG44qZAyIYNsXHNxdB UkbZbrOkzuzIves3OlyEGu XGlkIDUxMDAyIFxcZGIgT1 ZSICIgODAxMzMyOCIgOTk5 KFkiB2KGFGSeXIXxUPKaUD U5WdL5DSs8TMIOLm0nVva3 QyO7BOX4PXC6SLelWUlwyS AyIFxcZmwgXFxmIEFyaWFs MFpnsaI4IEWzXeTxXb9zXE VuZywgUmlnaHQgVXBwZXIg BO7kZW6xhITpRXPtRaIcW1 SyKQBrGLYsqWMoeL0xhkRw cyByZWNlaXZlZCBmcmVzaC Qje4RiKyNqqaLhXXNuL0Lr u92tREawT05fi6toODLsOX JlbGVkIHdpdGggdGhlIHBh yRchzuRuK8X3ctXvXB6oAI XVEk8wCF1yGMUhxP8mKBDx cXyaxOO9hOAmtiJgb4FgRu YossXsFBUpYaS4EXJabD3j gsMdUkN4LSRuXqMszSMavS 5hDBPvWuVaoByel2CzRAWk EVdcYD23DWO1Lu1hbQAdRC RwszI3e4RgRIshFWFEGAce NqfbSNOvJ5BaP6RyexFneM LjLQEtijStc5eqQZG2TFKw nKKopIHvMcTuSwtlERM3d0 unXGIdzZMtDMP8UDzwzZFs NTEwMDIgXFxkYiBPVlIgIi H6BJJpDnE7XkU6GBi6FSNO VlMgIiAgMzMwMDQwMDciID f0IHq4YNiILvQ6KBwxQmZ3 JRQgRBD3IXKdALz7PSIkJI xmbCBcXGYgQXJpYWwgXFxu O46tKdFjVTjbLeUeKx3iAA VuZywgUmlnaHQgVXBwZXIg FC3gFM3twLYuJZSiVeUaH2 KlRTUePHXsxHTagP5zphAa cyByZWNlaXZlZCBmcmVzaC Ibx6VcReIhjyThWMMyB3El v73oIHesY21do7rpEVXkTU JlbGVkIHdpdGggdGhlIHBh wIhapxSgQ3K2fcToSX4sQW NLVu0qUG7wCXEfkG5yCMKb rLummNB4eGOsnmFfq1KzVu XkntIjXSOkUyY0XIXiZeE3 DESwLsZmhJTrjZ9qYDFlFq GytUhtu2NdVPTlOFmhDQ20 RIK8Ot7asDZaYPGympV2k0 RpOGqxYAfjEofuYBScP7Zx U7ZjpiIddHZrVURmnvYgf9 fnUYN8TLHmoKFyhHWwVlRy HhgcXDP7l9xxHMXiqYJzGP F4YTegkWJtZYMvDHMeVJri NfHNSgOkVpW8ESNnBsT1Nn V5SRf7JWITJaYhIdIrMlNb XDXlLkHrCFz2BXs6BCyPOn F7NDefGOS4CFGwNVF2KANy SEq6PQLmGOrrlFOaQNEoKA YpTZucUEjbG49fOrBbOQyu HlMuUK8wGAAaUoawMxgxeM JbVCKhZLNsSC3vLG9vtTQo NVUuVhYuW1AyWEGdM5Dszf VkIGZyZXNoIGxhYmVsZWQg v2q7zNP6mHLqlIS5oGNieY fbDF1iuMViDQ0DMvNoyeVj SNw8yxvlOGRZRUGysWIjYN B3KDLyWhqnYRJ5ADWaZvdb zPR8XuMkC90uoERxVlKjm7 YoO0PmbCoqwJRwcwSpC7Bd BRZuwMI1lSHsr5Fbx15dVW P8OYOti44paRAtEwh+XH5B sYPfHBNsZ5IuzsUwTMofUG EwNLSsKN4nBHRwekZvaU5m znCjjwOcJRNvVFE3PMWrPI Z5GPEuHlUscTExwZ8mYBnq aXRlIGZpYnJvbWVtYnJhbm 81knI9wGPcaMZmh3n3bOTs NAVbIMwgCXTuh9ZtwYXmRa UnmZCfJ6waBFLoOVqjp3Mw LLOdx2V0TG7svNVnWAOcha BUaGUgcGxldXJhbCBzdXJm YWNlIGhhcyBhIHNtYWxsIG Sni4PwzELpLmJaPEqjt3Ma MYZmn3Z1DZAhcdY8aCQcXW 88CURnt6Vcs7ErKxKdINAt RhI5oMUyAWIrtD7sCYqpdP yznrB0zFJitRjqWOOeANQd y7UukKuwKNCdeMNtgC0lRJ BsZXVyYSBpcyBhbiBhcmVh HQ6bNKN2Q5oyzyxaHg4xZU TwQHZbFF8xdO9qcnezdHrc bWMvCEtqSAWtOBijk37da1 HnIPRdHRMpVWciuJH0qDAn CXWfOGVmTA4hZYVcXhSld5 rjRUJzADIhAUcrq3xbcePz ICBUaGUgbHVuZyBpcyBzZX OtSFwtoJWcLXP7rQ3vCSSx rR9vlfZ6DAOdRSCuXQyoCs I3EWEuZYQ4ZYXcZGAzfCMp nQgsMQLduC7eJUaqS3GgmW 59vRa3VXB7mpY5GNlxt1yf QZEjvq2fPCLxO2OleKload Wfjh90nGSrzUOzkmRiDWBo uE3yLOUcYCBdtAN1zySvSS I2F7kogxhqPsMubtP9oTLy XV34COZko0Ocf2XdLxXjOL 5cfiBUaGUgbWFzcyBpcyAx EtYjIyWbjIQ0oRJsJzLlks XmcCVsVW5bbpeztfinTS37 QOXvXUAry49cpGuzMFQ4xZ 1vbmFyeSBhcnRlcnkgbWFy Q5fzVVEjjtCaYLY6bTKivD hlIHBsZXVyYSBhbmQgdGhl DAG4nAZlvBYhFBWcnBHbe0 YooMfdu8ScQjEnWSydSF6j e8MrAL3qquBxfsXrlDXzQJ CxMLXrti1jK0z4gb8weHYq OXCnstRRfpC8rETmyW6sEG Txn5OfJKUhXUY1WP5dYVXe QASouXGffN8uaoWcklHiGS DaVdC2WIClCMM5EVNtFPPr bSBmaXJtIGdyYXktcmVkLC FbVYX4yHRopHweVH10iDPb U353pXRoMECyVFD3tKR4GR nzNTUhSmWnuMHkdi8kRHSe ZSBtYXNzLiAgVGhpcyBhcm VhIGFidXRzIHRoZSBwbGV1 wpTzBLVDfMBxs7LxFUQwrM TefWctW2Apx2NxQdtvqu6b FM6akwTaw5DyORRys3S9ZM KpyiMfQJR1uR9rRZXvzS8d weW6EGAkBDYmJJ7nLEiaKE 4vZIdbMC7nEWYiQYnhgXsr R7hgZ9Iml9IumYNtSXiqr4 xgbALquKZtKJVtp3Y0iVNj ZIREuRo2zZSlNTApzcXvyb Vgv9FqPjOeoP7pzTPkn3Uz cyBhcmUgaWRlbnRpZmllZC JbBF6tmK5uSFPbWt5kFfcq N38bLX6dHdXvopCsKT07FY LkmaPnz5TbrQhskjKhUAEl DIM0Hp0qiWGmSV9sI4Khq7 MblJwrdC0wssVcbFFmZRHp ACIqa4QmPlDnOXLtIV9mkE Thw3KdhTijCM2vg2Pnb8Oh IGdpdmVuIGZvciByZXNlYX XgxU7vDUczi1JwVJEnf1Ki Z8BqnFqbTKMlRYD9YObqag 2tuHRwMXXpojCYhdzpJ20f ZTpccGFyIEJsdWUgOiBwbG O2kvSccMMfNZ3tTB2dBMU7 ZEGbpxAzP3u0mOSkLS7ppn qkbmkoCGSxsLDxJOWnI5Ly e43xU87xREjeyaucRMUlKX OmHHG0TD3ib5RumY0yaPzv dXJhXHBhciBMNDogQnJvbm YkkPFzuZRbS8hiEHWwxoFz YWNlXHBhciBMNTogVmFzY3 ElTISfcDNcA2fpjkaeWN7x NuKbYEdlNMOwVLX0CMVafJ qanCsphm1bGZjdDotgUQW3 EIEyyLUrWVg4WxMgMRl3cZ YlTM2iRZZtZTXom6OvsUIn XHBhciBMODogMiBpbnRhY3 PuwXlatQanki2hFZSpnZCf ZOEsIYJWEJucMT02eBNzCZ 3nMHRiSLBmqf3xWVOgrTVg AYFwWPZtENZxOB4nYIGcNe AxiPVdVdKmoj70jhO2oJOb dWVccGFyIEwxMDogUGxldX ZucAQfhWQhb5RdgiNvrc5s OSBuzNYrEQ1gn0FhLHvoEa LepN6xHVSktEZexWMkOsPt pCWphL3suvinDPGlGIFuYE 8TCAM8CF7fu9YlaE7qZDXj uP6xECA6iLTlnKZnkCGpUZ dgVx5CZCU2BQ8qp1HebU5x I1iit9FvtZSvPRNxgnHymH 3aeFJrPZBlgI8xKEPdbgYh kxTtB8PqTGJbj4OviJutnu qsWSWxVWT6BuRwWUy9mYZr PU4lXPRyAGGpt3DbhATlDB UtrrXGJDSsYAT2RvEZRPNi ZWHiDGXevF87k1t7RALrjL HjGaFfYBHgxyVnnK3qGACi atKYWBp1MF5ad2JiaY3cMc JvbmNodXNccGFyIEwyMDpN IURrUEfasWklwvXovd9tpD FrJqbdC5arwLWkKHyzJRnd ZD4xbaVtbYIzJJXeVPPjpu CcwE3gZFgwUUCqFKLhHFhx NkxaXcaupOLecpV5INFfLB UghC5hgO9eNTLhp0HiHBOz KOI1DF6jIJXuHLQluMJiNH VqOEUqCYZnRBftKOHiK0Cs T6SsstKjqAQzGVFuleTfb5 efTMJ4QPWbkTWqoXAdNbGk XvhjXIV5l9vnPHXmcXAsGL Y8RGjxtXRaGNEoROFvMXtq RxJCWfFvXqM4OSYfVtC6Wq W6KXw5PPQZReNlTtRqMhUn MSV2NUYfHYq0FRm7AZjRLt P1NHh2TLu5PDWlXIZ3SJCp XXw1QHGxLRwvmNBwAVTlUO KoSMmrJEyxX55dDdQqCLYG RvAVdJ5nBMWRmBjjtYGWkP GqfiBNp0JaEamaBTEgDtNc MCBSZWNlaXZlZCBmcmVzaC BsYWJlbGVkIHdpdGggdGhl GASujVzbapPkB9K5pdSgLI 5pIXVcGKSwC1XpVMAhX09t UEYgwF7rLOMwNX6eZOPlDM ZqlfWxUBc8cfuaOGKmC1s9 IHVwcGVyIGxvYmUiIGlzIG SkSR60LVkyNW46FIxwCC9l IGNtIHdoaXRlIGZpYnJvdX LwgPmcu3IwMXNcPPexKF47 QKV5El4ywJWaAONtybG2c4 KcVTodLQ0xNnsiIERpW7Xn C0FcweHkuJZuGFGgmoGnh3 toXXR4HVEluCFbhPCeGwVi LffbDWC6d7qiSFVowBCoHG Q3EJndsIGwTDZaRYVfFDly UrMAMsJwApX3KLUvBpC7Lp N9FLo5ZLRUYdKnCaHaPaPg IDH8YvSzOSi2YJq3DJeQDl U4TZn4IVv0NCSyNUR8YYIu CDm3TGOyJZslbMSlKDGlBT VpURpcMZpjE32jHlOmZJVS ErHFwI0eZIGJdUvjbRTPuL JjinAXu6TaWwupJWSxScVq MCBSZWNlaXZlZCBmcmVzaC BsYWJlbGVkIHdpdGggdGhl OIDpvLhbrxBvR0V3cdKyFU 6kXULsATDqQ6SwREOjH19x QJYfvP0pULKtCO2zSQMuTO RpYWwgbHVuZywgcmlnaHQg kFHoADZlpM6jZKXspWRmBL AwLjUgeCAwLjUgeCAwLjIg Q84jm6ptgYBkSrcubj54nr H0aGCplJXjXdGtP32jchUv w3ErdDl7sMNjACtmQACixN 4qqP0cLkApx7cabUodv6Nb dGVuZFxwYXJccGFyZFxzbC 1oSdPdw5ppvXb1QQbflgB3 GLDxlu11YXrfBWUaS5DhD9 XaKPobXEL0WPHdMrWmXRVa VC7TLgXsTXdxKALcKwwfJI f8ZJo8DQ4AOfBzHHZoUdHh MCbjBBMjHWs3UXnbLJ3FQM J8IAt2CAV8UMW1GOw9WFDe XHQgMiBcXGZsIFxcZiBBcm bxsZRsTC1ffMfffcRfWV7s ZSb9wfioSOKnA8f1OQOelZ VyIExvYmUuXHBhclxmczIw EVIsH2WkedDuQHAqALYrYC euEjFyODBxb8w5yLO2pKIx dXR6wFJabWkgNzOrFO9hkA VzUX6uTZxlXDqiapXpp4Ip QN53sJOjvmLoqyAuMyf2ts kcWSLbC0k9APLuePRbHTrq NhLoGcavVWgtmTZsU4xfBr GvvaFgRMThLzH9FZWlCZH2 IJZaCbOjfYXzL8fsFOoerZ Ays5ThAyN7zJo0CTUehSFt q9QhPGGet5R4XGSxlxVrjN OhnWTwn3NedZd4fKUqBFuc LYVodP4lfL8bGtDoe2iukI lrt7NofLEoLLjbLIAqiQOt JWzmxI2oDpPdx5qpzBg7EA nmdeQ2STHcye27VVcgBXFs A2TqT6WyCEfrQLI3LBWdQr AtXZAoHE1JStDgBZtnXWUu QojjNRo8ILb6EW9BEhJuGV EiScSiIDI7OmWnFJg9XXdv LH9RNIJ4SYb0RTGtVXX2HK o4GWLbPFEcEtSuASRfXHpz CnSMgovsdTVtAA2xwQlkpx NpKHZeENp8cHDiVP4fMWNd UULnvxvjlgSpUEJaX5Irdu VkIGZyZXNoIGxhYmVsZWQg v4y5uTD4yCUhqHA9zZBktW jbAcYaLO2thWDvVT6zNJto SCqomzQgy3KgZI56rQNvoc BhbmQgIjRSICMxIiBpcyBh IDAuNyBjbSBhbnRocmFjb3 ZkGyTiqP4pmYIoo8FiDUht kSpgQAPvhFQtlOLlcF54lz Zhp0EbRZC3TFIrLGSnHSMc oO9hQIQ2eQFtxMKaqEtwyD DbrbLvkRYtH7RvOSM3icBs DXAkQZpeIO4eOJQbMUXiLp AbLAfdyEAwN7X8eB9dQeLl VGhlIHNwZWNpbWVuIGlzIG SeqDelQEs9ASS1Hp6mkDDe NHVuzfAUSO86YBLhwZVqCY B1QH3fXKLnxzuhDPOmVHJs MCW2FWkmyO16cOIaYZGmJS SiuGEefQjnHtlkaEhnq5En dCBcXGlkIDUxMDAyIFxcZG UfW8GGDEPtCZXmNwPzBCKv UOz4NSupV3LBBXNyQMFqBA Y5MJg5TqA6UBi6FTHYOk7f Cjx9Oek0AuG9PMX2BYmdBO xcdCAyIFxcZmwgXFxmIEFy zOYkMVfbpxV9NDFsVmCsVZ 6tGEaaxCsoPh9uHK5yxJOl IHGgQbXfTpGxRGm2YAUkQy Cnt9gfzXXbDWffGFB8eWDk JOWuXSJnZMCzEQ18EWgvDK MgbmFtZSwgbWVkaWNhbCBy ZWNvcmQgbnVtYmVyIGFuZC NwQOBnUgGzLJzjRYPoPE91 IGNtIGFudGhyYWNvdGljIG z7fGCpHH8bARRnx0o5wYOy YAXxHHbhZUSfl4XqwJFsNi OvqJYwG3xfLDJwZHrdg7Hk TVViu6X1APA0hEP0EQroZB Oql8TnhIGhSQPwKCJhdfOq dtSxaMOooJMclBF0FBPhyJ 8bXFCfSOMllwvfMTLmB9zo pZDgNWBKsnK0nojnMWcHOE BQQSAoQVNDUCljbXtcZXBp Y6MwQ9QoqpC0c0wbeClhj5 PjlJGfRY5dtKWmoD== INTRAOPERATIVE i9zpeQEgHLUcuOY2WvJkYZ CONSULTATION (test code Ixd9jns0FzqPSucUTcQVxx = [id number]) jMXjeuPerk33oMF9yR01QX 7hYXGeFsO1YEAyqyY0Uig3 XTEcINFijDZrR945k0sex4 rbmtRocVH5eYckZFFfkqwd JyV0CGwkTCBxjtcaGAb7WU lyNOXskXF3MRYfaZNdN3Lj ZEHcOO0buex3VBN5TEfoDM FkTdI9KMKoyUOmBVAmpHvc PMawv652JKJ2BkKjLJWene K3UJsuGXPgH6OrS9GoIVfi TFJ3FQLgRBMgBNPxIYFjEG SlWRgdqbJ8m1iiODYuoVTv VHO6RSenlARnMPPtNVBpVI jzDlGJCsCkXmU3CAVdYjI4 NxX7QAj5IJPHShYaCmBtFh EoQVI1BEnwVXs4GPa2AHoB CzX0IOAzAZZgJXjtTBH9NO ApJMf6CDAnZYjhgCYxFZKz GCPrVJylIEemJ96tyPidvP 5cZnMyMCBBLiBEaWFwaHJh F59wDHHmjdqxxeEaVRDWID BIUkFHTSwgQklPUFNZOlxw YXIgLUNBTENJRklFRCBBTk PgIKeNFDbUFPcNKIFDS5HC TEVccGFyXHBhciBSZXBvcn KdUKQyqNPDvp7yX963UPXl LZPcDgEKgOEnBLgas50zMb 87LyDgMbBaYBJ3SFV7NDJi g0ixxTayw9NdqQSiFJewIG HiqTCwSCrumO6kVgZfk0ih mWf2VUuykrP0VRFohq45EQ veGLKlJ6UjG7HkPDteZRR5 CILhKmHvLEHmHL4NEeKbZS tjPWMrHiheSEh4BEq7EU3T OlDpLENsJhOiTKN9IQHrHP i3ANxhAU9ROGO8CZV5ONWp CKN2RVf8LDDtXMGjMrTbNH WrWAegZdCBqvngrMEaSD7s kGbhjkLlIRWyAJv3vHJpEO 5vZGUuXHBhclxmczIwIExZ AZLMGF5OAQNfTJDSIKGKS0 1uMkhfDQqADFSLJ97xFIWH ORXSVHUTUprztRFiGD3KSX pAKItCHRZOB4LwSJFUOZiK RD6WSWlmIGMnbAWdMIMnnC 9oeHIfYZM9LGCxCxSKq3dr xP1fWXMuJCQjqOcanDHrgy AzLzcvMjAyMywgYXQgMTA0 Eh88XQHixJBoQZE6UU1zRD HubyqaEOHaTAWkNVY6EEgw eM31qNPrTHNlJSZnwOQcpL ecGdnixOtcm0MevIKuHEgx PIOpTIUpXTavKEZfZ6DVSW BgULDbJoInIYYaNQy0FFsc D3VVRRUkJWAbIEByUPY7Lu D4DLj1CLDLLi4vTjcmUHiv LrA9OTY5WSgcWPwotQEgNF xcZmwgXFxmIEFyaWFsIFxc chE6AMBdVbJbPl3lZERpOz hzLeletXRkCDXdVRFpJK9c OI2zkAYjJEMnEgIsABNCZy yeMnlAIGTlQDWUISDjQL3I RQLAJa4ME1lPPFjgWFACM4 gIWpbkSSMqUQQPV6mONFAG ZIAXVcTXELvSY21OCkULZA YsccilIADqNsEog5Z2MURb AthhTIEcTGGhrKO5zhDPkb 3lCreixIQ0WG2tKLImQd4e ODZhWAPzcVAqXyU5WvxlUI IhA4DcK9XhiqNysEVwAFNf aeJyu7xiNGE0NREtaXIxsA TpEuZqTlkzWCI9t6vpMBHn oKGlPLO5WSbtdBFiFMWwAQ ReDUugTeTFUaKpHeV7KZBk KvV8YkP0MMb2TAYFVcAeFr DmEoNvNMBuEOwqSAb5BDe1 ZBjHVrS5BQCnRSCzPTOpEI N0TXJyNSw3GWVeDOqanWBi OEPcDTDgTJeqGZahG57vSy FpASNJHsPTcN2kSQTBwLzl xHYPqQLhhlBMa4YkFbnqND JcZnMyMCBSSUdIVCBVUFBF NtITX1JHIPVKR12MOUhMUM FTXXGFZN7kYKHFDjOUVAHZ APlpZDkIFUTKZ852WLMptk DfCIPBP6AnIRBCH0LHWGTJ VsYCDI8PSAPTVDXcM3FUI8 ECQRLalvUwIc1zFJZJL5By SURFTlRJRklFRCBJTiBQQV KBOpYCCE1BLECcphplORLz CtTkm2O6JZOlOzvlQZYeWF YotUN8ohAUgn6xIaxloSC7 FR7qNGKhUb2eJHAvTYVriL SqLsG5UbycSROdV1KiO7Ix jcS4w9finTlst2CyeAZbZQ 1ccGFyfQ== MICROSCOPIC DESCRIPTION g9treHGbRTThnNW8CuBdOP (test code = 3371) Cpi5mbz1KowWZvbLVqDAii qFLfvgHezo56jYC8mQ58NR 0bWDNiDvU1KOYtnvX1Vlf6 VECnWFMecXSeI778x5vlm3 xcwgMsvZV3eEwsLIGmkxzn ApV6XYnaIBVpibtyCAg1XA atPIFhoRR8FTZtlPSgW3Dr WRFmWP7hace4ZTS2CFmaDE LeSsF5GGNsfAOtOEAidKfe NGcxg253QCL5SlSfMBKvsq SplVamtC0xKpZgNAJSALUb o1VuOEZkzQSxiX== [facility] [id number] 16:43:29 Test Item Value Reference Range Interpretation Comments Case Report (test code Surgical Pathology = 104) Report Case: [id number] Authorizing Provider: Izabela Galvan Jr., Collected: 08/15/2022 09:30 AM Ordering Location: [facility] Received: 08/15/2022 09:37 AM PERIOPERATIVE SERVICES Pathologist: [...] lymph node #2 ADDENDUM (test code = [id number] 3381) Jbu0hiv2MhlXAabEIlJRut xDQbqsWono00cKU6bV46YZ 3gVWCfLfL7HMCsuuZ3Dgy5 EZBsURGhiZLiJ382y9fww8 udtiHmcXT8uYxaXHJykzvk ZfG7MUteJLAkoxhqTZf1FR dfVANeeVR6VAXujAOqD8Sv XETsGD2okka3GOR3REfxEU YuJiP8TGUpsLCuKWCroYlf EJcqf115GLX3JkSpKHKqdl UzgMynrR4jDpIvKUSUrEdq IGFkZGVuZHVtIGlzIGJlaW 5sXWqpu1VoSRI3tiPzAIKi evBrgrCwjTq6laWtFeCTQF yeRXCqgL18jr7jgZIrhtMn TAPsh2EfOTDbAYDeEbKmG7 Mnx77oJ9QrXQDek8YahL9o aWVzLlxwYXJccGFyIFJFU1 VMVDogUERMLTEgKDIyQzMg V4rsccKvGgXamKZrIKGxth QXYKybEGBpBpMGCpJwdT7a UAf0LD0NOVJAUTQVWRRNDJ JpXPTcuvXNWHNvV8HAUlL3 IDBccGFyXHBhciBQbGVhc2 Rka3GmOLH1oBUalASuVJOi IB4cNBUspzCtq4H2KWZsof EynNI2qTMvWMUcwBDkdWRb cGFyXHBhcmRccGFyfQ== DIAGNOSIS (test code = s0xqgPDfZYOjf3wuIUUdeG 3220) FuZzEwMzNcZnRuYmpcdWMx IHtccnRmMVxlcGljOTYwMl lnxsBsTICuxGViZ0Pmwqeh NWnmTF3rJM6ycIoutCGgfC SxRSUtBsDcq4yxc904aTUl e9ajROWDjxfbzOg9rKuaT3 2vp0T9OpkgH1apKUQuTYcx ydMsjzY7LUQhnIHtDKc3UJ BhcGVydzEyMjQwXHBhcGVy iWE1CWQbDG7sxwxqLBooPG miDYXpxfS2XISdaTKmT9Ru NQOdUW2evxhuBCS1ZWtbLN JvXUS9DhQeODNld0Trdyu7 MjBccGFyZFxwbGFpblxmcz NhUCZmIKOSWMSCETTNA74r TCRQL8QSWCNTD6JfSeAQLq CROABRG2CHD758IUDnsvKf CFNsHsNOGZZRCyVeTe7AHW 3RLMaTRhPAW4rwqYLpCZPd BWKIO3MQWvyULqGCGqVvQ2 tIR23BYvRMCeCDZT1XUZAB R13ucZQnABLlvnNOZkDcIU yUQEtfZw8GNWkzL2GKITjT FnAtIRWXTUFOCXYUB9ESV5 46XHBhciAgLSAgTUVUQVNU CFPYHzHHYTZGMB7OLfCVTC KSYR4SJQGrRY7AX3iVUO2U PMTfQ7HcKsYIFO5PROSPU2 EKJbZzGZ4wWSuuBXKzkJDl BKQoDSFSCD8HWHFWQ0ZJRB QRPYDZFH2UYBpdDDRWP0HO TLeZZpIPV4OdXuSCSxJNQU PSO9LCY933RUWltoDmWVUe O36SCMMOVhbANyKSRL3WPE PBU8ARWAzqUlEsPOZmiyjb YXJkXHBhciBELiAgTFlNUE wzIb0UYHyiT0YLHPdQZuO4 KFKrGURGHEEGM1CNC615EM GkfxXfDLLbW60YBCLVKpuG KfTGCC1AHZBKU4FLKCjvVq EpXHBhclxwYXJkXHBhciBF QbOcLHmHGPucCw6FSBehZ9 YBWItQTpB7KYGvYYZFQRJC B9OKN184HKLzzyRdHTZuA9 4AYPSEGhqLBuKEKC1RHNZD J0UYGBphWbXwKQGsyyyuIT JkXHBhciBGLiAgTFlNUEgg Cu6MFJlmE9KJZXrYLdUcBO KENANmOZUKQTEZF7PXP054 VUIzybUhFEIuG88SHSGEEu iICiOVRW3FFZJXR8JTRQqe LzEpXHBhclxwYXJkXHBhci MEYgBhOAjVQLsqCa3RMSji P8VQEVbNUpHgNGCSCROjDC AKGGVMZ6SKC955FUAobjMc CPOfR29ZGHKZHzePOiXYYY 6FDVKPM4RMBGyyJzDpAXHd clxwYXJkXHBhciBILiAgTF lDFBvaMg8RRZcbI0MQBSxG TiAxMSBSICMzLCBSRVNFQ1 GWK931XPOrazMxWVBoF42I YALUMqmLFpIUDO9TZYDSC8 RFICgwLzEpXHBhclxwYXJk XHBhciBJLiAgTFlNUEggTk 7LWBbxO6RYQIhMHoJaDCXA SZA0PNTKUEFIC6NBY723HO VamvBkFPGpI01BKIHPXmoP WpFBBQ2JQZWNG1OYWOuqZr EpXHBhclxwYXJkXHBhciBK LiAgTFVORywgUklHSFQgVV TVDZLnEF1EBZusGwBAYnNS DZIMEU6DYtkQEeAYWI3GEd OTCKmuHqTFJkGZASSIV2TD V610YSPlakRvRNUjE8ICJD 5OUGGrG6SGFLRDIDNAFT9O BGMaBXXCUvAJMQ6KFplSDt VnMnKYAMTDZwM5IZCXGFYI TUVOUyBNLCBOLCBPKVxwYX OpnLQtUXmuRKQKGC4DZWGC OHgLYFMHXWSLFrISD9TRUG QPJl7MF5iHEPtyEQGTG4tB IENBUlRJTEFHRSwgRlJPWk MESQPEZ8OZK784XYUvurQw AUWdMBILE6HfIQNVN3ACNG GXNbVTMU5BADCXZYFnC1WV R5ZAJPHxcuPlEQXmNzCDUa PUVPEYCZ9KOimOMtBLAj1A LSJqPZ4IQ5UWDRBNZLJIRl SXYErFN54BAhUKBODqkear YYRzMV2gACvRCuzkHMXGP5 hUIFVQUEVSIExPQkUsIExP UbMFDW3MSMwiaGIuTRByBJ x+LSBcfklOVkFTSVZFIFNR EMPSA3QXUOBIJQmjH0ATI2 nFU36WHITIM9BRHlACQNTP RwHVK72LWKehUTdSIcTEFS 5QQOKCCLFlvVRkKN7eLZs+ CSDLT9ZlYXMOF9IXLFTuBK 5oTBcvPk34BKmpXN8aZZWV XHBhclx+PBImdvVPQW7IEO yEVfTFISAaOkiVR6XQABnq UExFVVJBXHBhciAgLSAgQU RIRVJFTlQgUEFSSUVUQUwg YLrKLPRBDBKBLjuWIf3BRe VEXHBhclx+LSBcfkxZTVBI J9LAD8DRXHMMWQkZQdLTHN 6YUHiBKAnFDQ9LUQQOXNBq fUKqBT0yJFj+QlJPTkNISU FMLCBWQVNDVUxBUiBBTkQg BCWNSJ0FGNmLQGwgYmEKPS BDMK9DJL0QGatVMrSrYZ6T B9CMLGNZAYLVTnEHRAqZJ0 1XCcWMQYShmye8ZKAoWSZO Ym7RJ5aGUEuuHZHDV9tQNe QkXhPyN71vTBoEHZsyIBWc zVCdQQ5qGdKQU4QTECWpKO XVY4oRFyGzSjNsP46wVOiX GRsnPBNatSVrGZ1wRXHSQM 8KTJnJOThqZDUCC0oIPjSs ZzZiP98fVCtCBUkdCITpL8 ElYCJzLABWKIPOJ8NBTFzA PJIBMCHLW8THWHZDPcTFDh 9NQSBJTlZPTFZJTkcgMSBP NdM2ECoJNFONOZ3PLBBQBH blGlMtWRNstqoxQsJnXK6s LWJLCX4AE5lEQPWbSTAIAh KLFZWYMtVKAW2FQKVYQOUI USVSYmgODv7ET3xYO6xRCn CLEQSXAOqMT3jDOPFXVGBu rWXrXLCiHRFdNl4GBHdiYU eRIu0HW17VQHZdPJ5AQEnY I49QMD6BMONewdw+LSBcfl BWQUnKXJ7YNDZiI1NEN3pU JxvykBK6KiULiRJhLBxQDg N3bGkqFDYhXIacUpMsNMfm TDLwbYIgSGykDAQtSL1eEB fFKvzdFGQGQ8wLTOBPUQGS CPfHAsTjNHAWI27RCFdHIZ JERFLVYZ5dVOILLyUICaEn UTkDJUUFTBokWVLLR0DOBX lPTjpccGFyICAtICBORUdB NSqBWQNBY8PpSMWOKXlJPN 9WKSblESQomTKcTG3aLBKL NW1UJPSULPfLDAMUJGQOVv VFK4PHFSJDWp3SN0aZTKvc CCVJE0uARU9VPLNMSG6APK VMRIQTAEuiZNVOJ4QUARaZ TjpccGFyICAtICBORUdBVE bQBWWLV3ElZBYOPUhUIF4A WVxwYXJccGFyXHBhcmQgTy 8bRVgOHzxqYNBVS2bRODZG DSIMBOlRIiKpRLIJB07KOS rMQBWADNGRBF1yDYSQIkMD TkUsIEZJTkFMLCBSRVNFQ1 OKP535SNVszxCcNXUtBkRC XAFDRyQcRk3EYZ6XXYcDFi NPM4uzhBQsGQKbywnaXFZl DFQkSWRDKE7UDYQYA0GGRM IBUSHXOP5QQFDQHTUsJUGO SRQQI9CFY910KCPhquJrUQ ILBRDULJYBBwjXTnHONY0X MOEHD6BMQmQlRA66KOloSP BupNQaKTAjAFgYIIKRIE7J UZVmMNLZHAKLK98oGDNaYs LcWDVKN5GDAOzZGbvxoPFp ICAtICBPTkUgQkVOSUdOIE iFNKAHVZ8XWXXzQGTbDDyo lEElrFoiaaTeNDwid5TyRC jeIRStVN8blDznYHNqLJ2b ZZHuL9vhmC6kttf6MtVbUG SiFyR8PBHuzzW7Zzn9MVMq TVfdr7jvd2VyEJAqJRo6vS dcNbLfHOFtv2sgwvZvUtRe IXIdKZSfZOXxuACzG022w9 qme4xybhVcmHB0KOWlNOB5 FVramsUaugL6MHmrmHVcGw I8EFidtzTtXUfbunTioxXw Qmr1ZSEcY842QEH0tHgyn4 iqNLY7AKSyZCRiFwYlFn1v hXWwD878GNNaJOVZNIFqyU w8XFLewtDuagOerESPu840 L696t0pwIBTsklOnhWaDlc cug0bzX577EXZibTNgqoWt WiPhRKVjfZGuxWK4KXZcBT 7ifhwiFLmdKHbiIOTuvfK3 ZXXieGTtM0WbXEBzCZ4uhu zjNGU3ZQxzIOJtLIU2VeAf ZBGed1Atymu6ZwJghl0tmz 57KDK3p6CyfJflNVA1LVG0 ZfQlGv7pqGDnLTTuDW2mDk FkxQUgUQJaum45xZspLWgl HTD8MISfkaNui4Fec1oxUx GznjNkL2cmI4ObAUGxHNXm WFYwEaGhkiYte6Ceb3VvxA EalWp3w4wpJCIzEGDpgBeq j6ozBAD9NQDsiFIcW7dzdK 5cUUJfAX2ymddkg9tlVNfl AShnYEUuoZQ4nsL8GOXdlO JlW8FieB3cVZFyQZvhKVMs tjo4XqIcXa3yqYHbkAwvXM xzYmtwYWdlXHBnbmNvbnRc cGduZGVjXHBsYWluXHBsYW luXGYwXGZzMjRccWxcbGFu ZzEwMzNcaGljaFxmMVxkYm SaYXUvEDhtR6tyUdDyLwDm Jkx4QVVfuGMeCQDpGsq1EP XrfXHtDSHYuExasK6vDKGc yCuosQ2rySI0NBMnwpGpbB SAeU1wFGAKpU8qJnC2UGWz Vfj7TVO7CzHmuSQkoU0= COMMENT (test code = r0jaqSAkMGCpmRM5CmKmXQ 2295) Ini0frf4ZwjGNyzSQpPMhx iOTisqLpfd25pTU2rI30QD 4bSJHdXdS4GRWwlsH8Onj5 PEIuXYRxeCAqV049i6xkd5 itctTazSM4qKgcBCIyuspr TlD9SIkhCKTkdnhjMNd4OB pdYPQngKM2CYIgwUWhD5Zf MEAxBD3ohtx1JPY6XFxxOS QmJsL8BRZdiTZwUYHcvRfa WCnru781XIC2TfHaUMYhja CdeJkdvC7pZrWiGVVCtJ6e HUKkMIKeq5B6HBu4UMOvbs AXjU9xyxugLFZbLTZbutBP j7WmDCu5HGovXTqtWCDddY DyWIU2jQ3cFAiwhOjaVzFk b9DsiSR4vyDHUH5aDG7oxP kxbqScd4OhTzqwmZTmc2Vq OEEpr1UdxzfkQFZxg7DhrC Eah8nvgGPqENKlKKRyfuSj PCGpznTyyvUwYMVhnwM2pB 5ccGFyfQ== SYNOPTIC REPORT (test LUNGLUNG: RESECTION - code = 5765) All [employer] Edition - Protocol posted: 03/01/2022 SPECIMEN Procedure: [...] pN Category: pN1 CPT Code(s) (test code x2jdrMRjAZNlcLE7YsNqWU = 3357) Huv9gni7OikMRmgOHcTQam nCJqtkOooi16xAH1tH65HL 9aZLHzOuH1VAZergU1Gsi7 NGJcPCYccYYaU497w5bef1 zewnFmkXM5lTrnOAWvefej PwL0HSkaFTZnnrqkJOb6LW eoHRVysNK3DFLpwDKbU4Sc QUFcLJ6vsqm5WEP2VHyjFK JiPuR8TUCrtMNhVGKoqOip DKphb096ZTV1JbLgIMAvfb PpuDijxU1wZlRmFJH2MFGx GJq9UMEokwC7JTYxB2ywAW MpjrI0DFFrRKjhSLIcLXsp MDVYMTRccGFyfQ== GROSS DESCRIPTION (test v3kxxHBbTGXfcJQ7HwVgYS code = [id number]) Cgx2rwr0WkuZRgnJYfEMev iKPzazYpde23xVL0nD47XZ 1lKZMlKnR1OUPlykJ8Por7 KFUiIUBfhVFhO680d2wbw6 fkdfTnrFZ2VHCxLHKuK1Gt YC0iZRCtdZXfS28ikYZaJA Q0WZDgFPLgrPZdMNCwWNQ1 DZMpiNGcG5bbJYHuFY9ovu loERluTCfoWJRdqRS4PLZe fXRoP2KtQDZcYUtqXMBxgo t4XuDnCl1wsCXelCneRFbi WPGhg2feTBIszULsHAB6AN zlmRQiRPIsHGLfSCy2IBAb EAkcpABdTC9okIhpPixkeB kjv2RsaSLgNVftSWTqSUFp ZPkaKOMjL5HPZQGgFWFgWt SpKUZtNTz8ZBmaP8JOZOXv HKRtPVHuTDd5HjV5MAn3YW OIDk9mGzq0FAnrWCAgHVE2 OTkxIFxcdCAyIFxcZmwgXF thAKGxiBZwVJvhrlV9FEJm VJvlDAKcRwNaYY9fXZbjuP hyYWdtLlxwYXJcZnMyMCBU wSTcw1KgS8ctPP0vzSSnzu UeDZg1EBJwHjPux7opLn0b WMWmx1vtmwNhXQR4iR1fXL LnXRtcp8BkiqpkuBDpJIlq CRH6mDZjNLSkGXRuERZzIM 50XCdiNHMgbmFtZSwgTVJO IGFuZCAiZGlhcGhyYWdtIi BpcyBhIDIgeCAwLjggeCAw OmNrG49rbCLyVFd8sWPmZX GdbtQ3YDimgNEpGUMriBRt q3LbYyW6bJAnjOIff1KvuB h1qIFjQQzsKJPurL9lyX1e IlXbXDPyw1cfrPldf4QzkR SqKEgnVQJknWBcAHthxM4z FkBdq0vguGb6PGovgdF5TQ Rlbg01DQyhBMQiL2EbP1Ul NBkgZTT8IRIfBoIwPFRlOO 1MZfYwGCklIHOrNyuiENo9 PDe5AV4IPzIzYGXpYdVtDG X2MgIxPWz9FOheIZ8EYPB3 ETX4PLnoFDM1IUk1DPRpPI QgMiBcXGZsIFxcZiBBcmlh uHZyKC3vbFpxumYpQSOuHR o7nIPnRN5yRRTdNOYxrnru czIwXGNmMSBSZWNlaXZlZC CwxvVmk4MsJMqncbCwTYTr bGVkIHdpdGggdGhlIHBhdG fbawYdK1G5paLoDM2iAJCz EREmT8WmAAYfM39xGZCgoD 6bYZZvVO7mXPl0HWUoPGTb JzkzMTAgUiIgYXJlIDIgYW 37dWFpN569gJJewUirbLcp xx3oBORldUZdh2RpnS6pUR DoFDVeaXUtvwBdGX22GFFo LiAgVGhlIGxhcmdlciBseW 6iqRVjq8JjKNplIQWah2Fm yJSbZCUwRFD8bVGpt3YcS2 fbHF4hkOKdED98pYTrgNtu h2CxiTe7sNAaIawwIRBhvZ JpIEMxW3Cik95rA41pBBou cGFyIEIxOiAxIGludGFjdC MwiQ0uwMXcx4TfAXOvieNI Wm1JLeqyOGNufM3jqUHeg4 VzWMBolUPjV7NjTGnlGCLa I3QdR7VqrpHroBPfDHHwqq Paq5peHFS9ETAydOLnyXAv CjPgZdoaUJL3w4hlNOYgeI SjSKV2EPlyhLEcAMLoNQMv DMsiSyEUUoWkScO3UWVuTi S1OyF8WHw6TUXAQhNgTeCj PnHyCLB4LODhMOj1TDr0MY vZEaS9UGxuDCBkXrZaFMF4 LDGxFXp8SXBbKFrjmFRlKS BnTSZhCYliZDxxF57uTgRw BDxpCyLaBz8wQYvxzBxuZw 9gBK7ncADdFOFtLrWrJTyr IHNwZWNpbWVuIGlzIHJlY2 VpdmVkIGZyZXNoIGZvciBm iy03SR1bd3QdkIxktvFhyH Jahz1vcNRqVKacXuUiPAQt n8t3bQU6cKHegZB6eAOpkQ fhWgPpBQ3wkPEiTO0CGpTy feQaXdz3GcCdvrObKZCbLW C4CFKoKBC3SBEaSrAyoGWr xhRcchInk5TrDiNbyD6zzW Uar8ZwHeZaVNzeLJYuZDRs dXYhGYfdDIUbk7CccYGmLF FuZCBhIHRvdWNoIHByZXAg zGNopKSbLD9bSWPyECKenN OrmV9osyVjunZibyJqmtEi uOFidEMnrYF0LNBcrE6cGn EwInXot3mumYvha5ZqoKNa AMutSDZzuECbWFggwR8zQy Vmh6ihkCj6MUvmfeN3ZAQk pu46XZzeBRRoG7ZqT7WlOA rbYVV7ECLqDwZoOMOaOT2T BpDaUGovZRBxZfgxSEd1FM f8GK4AXnGvJLIfWeZsFVme BKHoGJa5YQplQM3TKAB4WI D8TYUmOxG8SMj9TMTvJOUu MiBcXGZsIFxcZiBBcmlhbC IqLY3zyWrlrnCzMCAiXMu8 iBTeTB0iAYZvZKFoeguvtu GgKGQxE0RvihNrYGUtLSRt QVknEqQpVGCiz9t1yTG1dC EwgOH5pQTxgYgjZsShPF6x oMZgEL1qAPdeYYhsltLfe3 NhPF80uELsqmWywjWkXny5 IiBpcyBhIDEuOSBjbSBwcm K6zB13n7z1ISztV4mbGPLa UC19mUJtX737cUVmhShsmD woeb8tKRD2aZC1CHywVKLt p2QbbIGdSZSlFLQcmaDvus PerFUcwIUktER5ZNWqzD9m VMReLNGjn5exfAhgz7RwhC ZbAGtqNMVbkCWtZDxgfS6r CdWfi0jntZi5RJkbqlO4CA Mrvm84ZQvxKITsD8RwM0Xz ZFieGTT0LIRcHzEyAZVgOD 3DZsHxYDmwQYDzNptoLSp7 ANa8MZ6MPsTyKVDnEvPaTU ftICBpMSk7EQigAI7IQVC5 LSC7UZDnDTX8PJx8BWZkHY QgMiBcXGZsIFxcZiBBcmlh aCPzCY4ktXsyzuZpGJYyYP d9uMSzOZ5lTLXnIVVpymof tvGxXKIfQ8SupyOcRACcTN AeHAubUvMbYYFly7t4yIL2 sYMgxXH7jUAewLwjQjElNJ 7wqWHpUI7uCCndAZtdehAz t0DsVS64tTZdsmFwthQcVm x2SDCpXeEqgmJoWIQoDcB2 NMWcXzV4ZMNuBYEcwYCsqn CsboGgv5VyAtFxiN8cvUVi e3HxYYzedVexWNTrgQLsmN WcoG85mkSzx6QyLTO4RMAl ITGmXJWmgN5kBKG4qLLbdK JdJDGSzZPckH3bngGkpeOb PHDcHQbyiVXmBGR5wY9iEB LmMF9mVYGhzXsyWTv6AHP4 Io6djMFbWHLfjkZDHM3MZO 64ZJEvdMGbBOT8YO9fZECt egsvXYDhGBOxINB7TNerhI 11bHQwXGZzMTZccGFyfXtc NgtmuOjrj4UumGIuNQdoKX OrULJyUYagYSArE3GQNMGm TTCeNjNtZUYeSUr6PPtuF7 ZTICIgIDMzMDAyNDgzIiA5 VSu6XJOKVr2nIqw8GnA6MC r2HOD4AHkgSZgbnZIyUTku ZmwgXFxmIEFyaWFsIFxcbm K2TSNfLrKfTf1bWUdsdJzr Af8tPY6fuQUpHPEpMjSfLk ImYIo7BKOhPqPfc9cmpNEd QJrdVDH6qASrIDIfMXNbUU XoTA53WBavOHHtjeGcWPlx bWVkaWNhbCByZWNvcmQgbn VtYmVyIGFuZCAiMTEgUiAj CIXghKWxAUHdThOjS67xPW 29zUWvK609vRKivLxbcCyo ep2zUNNhiXNewSS5MUVdtH 9eeH94jvIximMNEE04FLCy sOQeAEG4CT2iZKPgejmfZF SxNQJiZSD5VCjggA37oCTq XGZzMTZccGFyfXtcKlxlcG jva7JehZMlHZfyPFLlBIZg YZwbJOYaG6BZYBOfZMBiLt AvXKYePDa1HOtyE0PLXXFj LCWfQVMdETUkLyH2JKp3NT DGIq4yOng5ZdN6EqEiHVB5 OTkxIFxcdCAyIFxcZmwgXF jwEPAqsDYfBIpwbhO6WZDx QzCnCw3vDXalrKlvZt9nHP 1mnSWrKIQlCgChWgXsTZw4 HEHlAmKbu3kenEPoHFhgVC P2sUYoPNFeZFTqPVOtAP03 XCdiNHMgbmFtZSwgbWVkaW NhbCByZWNvcmQgbnVtYmVy IGFuZCAiMTEgUiAjMiIgaX MeTMZqIfzcL29cFW92rKFv D164tDEjgUagoYllzx6gKY Q6uBB2JLbwQRIzi6CfyCBi IGFuZCBlbnRpcmVseSBzdW KdhPH7GIWdfP1kKtYmMhUz n7xvrRekv3DnpRGmBJixDW IejWNcBXfwtN1jVsVvb8im tWc3OKhgvvZ2NYFbml02PN dgBILlX6YkX8PgSPjzESY3 WVIcXvVpKQSiQU8JBfGeRO aqMHVuKksdMKe1HXi3TI4Q UyAiICAzMzAwMzAwNiIgOT l0FGdbBE3KYFC4WMA6VMMq LFB2UMz9ISYnBVEiFfVzQE KqWKsmLyBBnlribCBfZO7k nPkvxzWpFKsqZHw7sFZoUI 5vZGUuXHBhclxmczIwIFJl W5GpojRoOIKbMFKmQClaHz QaBDTxb6j4eYI0hKPmmQW4 cCPhaCtqVyYqCB5klLArBS 9iQMtaXBxvmwUvc8IiTO10 bWJlciBhbmQgIjExIFIgIz MkAYiuAHWmMF1nNULjDNDh nCtkMNBxpLlcBLa9zJVsAP 5vZGUgdGhhdCBpcyBiaXNl F6DtSDXdmcLrAZ93mJGwwE tdr4ZhlBh7iLBbITnfVIwk PuweBDMsO1ZyC5DiakFbgX AePGOlfrOmh0ihUIX1TAKk sVEbgNAgScFiQvebORK5y7 ouULLffLLvHCK2HYjseQVn NTEwMDIgXFxkYiBPVlIgIi W7STOhQgS4XxE7PSk8JHPI VlMgIiAgMzMwMDMwMDciID p2WDa9GNzIIcV5XWzwOri0 XgzgVVU0CZNsRDk0PVGqUH xmbCBcXGYgQXJpYWwgXFxu C57jFhPeHVGJBwWTzZ0auG OSe5JbSgphSRJwHqOeCTCG ZWNlaXZlZCBmcmVzaCBsYW JlbGVkIHdpdGggdGhlIHBh hZjsrmDbM0C0loLxWA6wAD EmPYHvO0CvCAKpP44fUFYp oZ9dDVIrDU2hRZBhSYLOKU N5XiBstaCiRKIeBAPiwMFh hbDgxpNbz8RlGcPwcX9mdH Dvn5HoEKSqYPrfAN74TEGu mM35odWjDZRlCRLmkqYkvZ HgcWG1KBJvbI0dwA75ivSk asQKBM19CAVvqBOkFPN2BJ 6qEXFxpknqECKoRWGrUHB7 AXxlnI12lWGrLLCzOJLjkS SvlSwxVxverKvfn1YbzYCw XGlkIDUxMDAyIFxcZGIgT1 ZSICIgODAxMzMyOCIgOTk5 SZrgU9BQQRYqCCZwSCGwFY L1YzG1PRa7VAVGRx8aYcr6 ZsT6FUX2GVH3RSluISzhpT AyIFxcZmwgXFxmIEFyaWFs UHsaazU6BBBpKnIdPl3zPH VuZywgUmlnaHQgVXBwZXIg XE3vLG7hzNJrAVPzPzLrA2 PbERNzPWLmlIAydT0yzcTx cyByZWNlaXZlZCBmcmVzaC Czv0TpThJpbbMpZDLtV7Sp w98pQUmnE06dp2zqIEYfZF JlbGVkIHdpdGggdGhlIHBh nBpfsaGbZ2W8muGjDI2yPB HDSo8iRN2qPQQzuR5fUURt jMgirCJ0aKBbpxGvo5FvTd CobvThFXTqUvB4FZWzlI6m ckMmQwG8CTPpQeZosKTnuJ 6dNFHrUfEwoTgjq4VhSRKi IKhxJI93TSV3Qa7heKJwUC MhcoN8d8CxGPtbKDPOBEva KikuMQZbC9MlF0XbtrOhoS RvFVZdjzFfz1esXXP3ZYSs hKZwcHHcKtLgRargSUI5q3 uiEKQhmPDbUXS6QMdwvPYe NTEwMDIgXFxkYiBPVlIgIi K1FDWlEgZ1CsM0XUa9VSBD VlMgIiAgMzMwMDQwMDciID l4HIu0QRcEPfP0WWtvFnA3 WIKdWCO2QSTkVEv0ODMgEV xmbCBcXGYgQXJpYWwgXFxu F57bJpFxHWieIzJeHr0vDY VuZywgUmlnaHQgVXBwZXIg WR4nLD3teJBnZRAyDqViH9 ZiUDGyTRCbbWQyoV8reaEg cyByZWNlaXZlZCBmcmVzaC Xgf2NsNuTfixVnSZTnE8Wy a96rJNfgF47og1kcPRVjNP JlbGVkIHdpdGggdGhlIHBh oBnxivYxO9G4vdLlCT3dZU XMQr6eLM6aFLIndL1qNVSw iCqzeHR7aBVrpmQeu9PyDi TzxnZxCFWvVnN0CKHcJwR5 LLOrSiSlxANxqJ8hVUJwFq IrdYzif1VzIHLqOHshPP62 ARX5Do3hlKBjANKfjeW2w3 UdPSatCWnlChrjIMSyU2Xr Z4JrowAgcDMeBBAsquMun2 cjMSS8ENCmiUXxeMMqWrIm IijuQLX6q9sbDGLqgHJiPX F5SRhrcTPmQLRcTINuGVtv VxSSDmNwXfP3WYCnWuH8Xs R5VYf3NPKIUwGfUmPoViUu ACJbOpSvRCv8SCd1QMjLSm V4KRezGPK0VMTyPXF6LEXe TBu0FDAnNSlemQEoOMDhID CqAUxjREzsV40dRkRrSKbf YtEwNF5yRREiKvyhOjhswK VvHMLmUAZwDE6oPD5jiBRz USGjCwPfQ4ZoGVZtK6Fruo VkIGZyZXNoIGxhYmVsZWQg y0a6pTY3lYKmrTL8fLFyrX icVG4qaOFlHB0SHyIbhnGr AAh3jefaIJNJLSPtiPUpBK D9IDKqSrfsTKK8ULSdGxas xFI2KdBdX63nhZJeScIjv6 HeH9AxqWkxcINhlmDnR7He IYKidSA2vJFel9Pfb87pOM Z3XLYkn56aoOUdLaw+XH5B hSYxPSUxB2OzpdVgICdcGA ErGDFpEQ9mXBDlfvTzfI6e riVhfqAuHPFqJGB3RBGaDL Q1EKLlAhMbdKAbtR5mAAyz aXRlIGZpYnJvbWVtYnJhbm 78hlW2zGSobJRzt3s5vPEm KAHhPMeiGPNap4WiaWFkSs RrdLWtO6smVXDsIRtcl3Ny WMDaz6L1MB6fgIPbKGHcvv BUaGUgcGxldXJhbCBzdXJm YWNlIGhhcyBhIHNtYWxsIG Tbe9GgePZeOtMnDYfus4Jz JSEvr9V6ZOCtjwZ4qSQwKZ 28RKOvt1Lcv4HlYdJbBICp RiE3aAOhYEWxsO6oVYkoaL lhscZ4pNCipGphMGXuKRPy q2KscWbzQJZbhRVjpP1aQV BsZXVyYSBpcyBhbiBhcmVh ZQ3xCRX6E3swrzyyAr9rDE GhZKZbQD4igT6ornrorSft nFLvAIfnJIRmHObbw83bb3 OfAAHzHMBeCAhybGE2cQMt HGAgZVVqTY1hDIYfCqRbi9 qlJKCpCXQtMOuyy0imrnKc ICBUaGUgbHVuZyBpcyBzZX BlCNwhmKOyFZG2bE2dOZBd aW5nxcO0DOLvMSIyRBfpWy X2QVGyRUY9OOCmYVRrtTCy pEolRMFmxQ6jFDyaM1BrcN 74cNd9GGR4khT7ZRgmz8yu JINbkx4bBQZjG0AzoKejcv Ejqv22cNJryJLqdxHvJIOa rR4jZXUjJVRahEZ6ouYxPJ M2F3dehticTlWajhX3oZHg RW43BNAjx9Xln4ScNeLhLJ 5cfiBUaGUgbWFzcyBpcyAx GgKwNaNckKL8hFUnSsCyzw BlcEXpYS2zjlvjvfscFR46 HYToGNEqy99evQumRJP3yZ 1vbmFyeSBhcnRlcnkgbWFy C2rcSEMfuyDyPWN2dEPpkW hlIHBsZXVyYSBhbmQgdGhl BZX9uYPshMKcJDMrzCLii4 XfeOcup4DgGrUzRDwcXT0o q0DjID3zqqMbfnRpuAYgJY DkBZBwco0jI8e1ap1jyKKp MXNtpvBBhqW1lAFjcV7nPT Clc8YgEUQsWYI9IH5jTCTy XKGlxFFoyC4irjLfoxHiFE ChClK7QJXqLDU4MZJmSGQb bSBmaXJtIGdyYXktcmVkLC HsQME5sUAtfXxvDT10zKTb Q331kZBfGJCqFRA4tVQ5SL cdOIAwDvUbqZQjkj9oDFVy ZSBtYXNzLiAgVGhpcyBhcm VhIGFidXRzIHRoZSBwbGV1 yaFsWRSKxXZqu6HpGHCrhS GblEdhI1Yfq5ZwKihyqc7w YO4tmbFfv5YvRMTlz3L2XK MwxfAzFGA0zD7fMCUodX0f trV5PBKwLIIxIW1hHEylTB 4wQDdmUN8uJNYqTFzrhLkv D5gdV0Oed6RkjWZiOXcwp4 tazALqhQWlOETrl3A8dDPk AJSHwFo8qKTkTITyfeXhuk Qzz0AeWpWbxB4wrHNib2Pw cyBhcmUgaWRlbnRpZmllZC PaMU7fqN0bPKOeIc9xPzjc B32tDY8iUnGzgaLuRC36KU RaeyAbp3QabHqdetXtIIXx SAW8Mb9qkOShQN3zV1Dga3 ShmEbbbK2pbrSerHPaYNAc WCEgk9LqSfXgTXPaSD1eyC Rsc6EjcBmnAW1nb6Mas8Sy IGdpdmVuIGZvciByZXNlYX SavG3oIAcql9MyQFPvx1Bb G8OoeYtyXGKdFCM6LKrjmf 1joBEpPXLdspTWwvunW75j ZTpccGFyIEJsdWUgOiBwbG L9jaXwzVKcTI1oNM8eJFZ3 YZZiniFuK3m6iIQnXN0wre yqaubqVSKngLVtEZWeI4Fa t32uO47nVZiaagxlWUYhXZ SzEZP6EH8pn8KubW8vwIyk dXJhXHBhciBMNDogQnJvbm FewCBbmXXwN2fpJZHxqbEs YWNlXHBhciBMNTogVmFzY3 CtWHMpyWGdA1mnrrrwHO5m NwOpQMtfZZBiWZP6BDVudS enwTswgl9vVPfrDdqqJJV3 CDYrfWChVRd0ZhFnWIp5gW ThHX0oFOTuYVPyn6BsaPSl XHBhciBMODogMiBpbnRhY3 JiaOtxaPsmns7hQDDiqILd EWVnINSAZXzkPS97eGIjXS 0iGUAsTVZgru9tFJKprTCt VWCkRTZnZFWwLA6iPPWxGi JpyHPqIoLmib48voZ7zAOj dWVccGFyIEwxMDogUGxldX DseLXvkEHdf0KukyNfqs7i EIYjaAGvZN6ej0CiRJjzVr XakL3pHJPfoAOsxKZkYwNp kOZquO6xqqrdIZYrGVHyRB 3UVJL1TY6gf9ModB9nKAYk zU7dMML2wZPssPSajNMlUQ aqDn8JULK7DT4rl0BicX3b R6edc9EfvJJqESIgnoHfkU 7sqAQsLOCfsD3iTXTyitLw zaGhP9SoFYOzo5NnfXtiia xpVDCeUGF8JhCbROk5jARv NK4pABSjHPVvn0EnjIZeKK GgjcLUKZCoCJQ2MeMGWZId BBFwDVZxvF15y3o3WZNqqY GqVmRaFAWlnhXvdP9lHIZk fiDNUGh9YN8ra9SjgA4sDx JvbmNodXNccGFyIEwyMDpN ZJJbIRdpxVuufrDoyy3dnG XjMjzsF9yorMQtUYvxJNfl TQ9vecKhnCAsVKCiPKEiyj VwjE6hFUdlYRBbIVWmHCvu SmjfEhrltIRsqeX4MBXjCN TxoN6gfM6wUHAon4JdMJOi VFZ8SV1fKSUcTPFdyVObXI KuOKUxMRZpQBaaFCCuX3Xs F1OpzvAocFDuIAAjhgOch8 erCOQ7ZJEhdWBapILaDnTc CmvfTPJ4m3bwIOBvhFMcLC E7VPowwZTvARXaUUUcOMjp XqXCIgHjVrP8BIVtSbH0En R2DUm8ZVHEBqTiHxRrQrDc HRV8MQNdYWn7PEy6BWpSBa I8BJi5AGm3NLQdPVR7YMMu OBg1PWXoPJilcMMxCTUiLZ NvZHtlLKkcX26jHzSwTGRH UoXOwD4qFQXNdIsjoCMRhG PbzwDUp3WbKqmdNUPhSdYy MCBSZWNlaXZlZCBmcmVzaC BsYWJlbGVkIHdpdGggdGhl SJCopKrmlqFwX7N4uzYwRP 7nTNTdQBZdR4ZwMTXsD65d BGSdoN3nYTJoLA9jSIGiHQ FqaoYjHMz0dbcfJBWoY6b6 IHVwcGVyIGxvYmUiIGlzIG WmDB67JVzqHX47CMdfWZ5s IGNtIHdoaXRlIGZpYnJvdX FbfOnnn5EeBEGeDQpvUX65 KHP9Au3gnIOxMTRuswD2q3 FlVSyvJB8fYmiiXKGjI7Da V8UiloVkjRZzMKCahsLjx5 kqGMP0BPNowHTuuWJySxAi LbhgJQV4u9yuHZAorULcDL P6UWbbeJQiCSXuKHHyMVos PaYPKvHsQqH4DAWbXnB7Xx V3HYb5CAQXFjSvNoRyJeWd KYS3UjHgIIu4AGv6EKeZDp C3NRy7EBz1EDWuVHT4ODJx UKo1IMHeKKhciYHvCVNqLV TaQMeiOKodF92sGpCzHRKK HbVYdK6sVJLFsWbsyGBUlV BjpdUBw9PqHxdjIRPcExGu MCBSZWNlaXZlZCBmcmVzaC BsYWJlbGVkIHdpdGggdGhl RXCpxEyzuvQmI5J0haOcAF 6vGASnVJUbB9FlABGbN44q SVKebJ4qTEWmWX1sWWBcEI RpYWwgbHVuZywgcmlnaHQg hYUrREVjdO5vLHTxzRDhTI AwLjUgeCAwLjUgeCAwLjIg Q76kn1cevSPrMnpqhf73xy J4iJWvkCZtKoFqZ77vjhEc d5VlgJw2lVXxWYyuKXNyjP 8orS2eBsZec2xaaFjbx1He dGVuZFxwYXJccGFyZFxzbC 7mGiZsh5bouLs4TNobopM3 QKUzst20SWmyXBWoZ7PhW0 CoMQzuADG2ADLjGrHpTHQd ZT0ESfExEHoyDQUaIpupXL l5EBv0QL4FEkSwSVZgUeMd ADpgQJOqGBw6SHzqDA0HQA N3NAp8LEY9MUP2TJt6AFRg XHQgMiBcXGZsIFxcZiBBcm zsqZAaCM4xnGcixpRuQP2c OFa7wsffCZTmV5p4LWNtfR VyIExvYmUuXHBhclxmczIw DFCcN2UamcFzNMNeIIAwUB uuXwIwMDGun4h0qVP9tKWk hVW6rPXivOseOaEnWO3nrX VdJB3bHJbzFNfbqzBpj9Op TJ11wUMekgRslmMyNno3jk nsWIFnC1s6QPNppZMsDZir OqOxBlwzCYpdxIJbS6hjCm ErhqEtBVIoFyV7LEKlPHS8 PBHuXoWqjUHtJ1ebYTthzA Ins2PtDlU6rNt0VQJgjLQw b8LtIURdl7O4NNKqqeAkmH WhuXHrj9CaeYe2tOMdQSjh GTYabW1duU5iNrUhh5ablK bnt1RprWEeHYndELSybAMb AJmppK7xXbEpp0dagNe5FD pdpzW6OTJwyi12MRgnOOGq O1UgF7BeSIklAJK5INAiOl FrOOFxCF0KQxIjCOqeUAYd XukbECt7EQg1NG9ODnXmBQ HbIcDxJUJ3QlOtJHm4WCln GN8RECJ5JKr7YKJmQXI9DK e7TMWcBELbAhLwJGLkMTug VnTHcwkucPGoBE0tdSfvyg CxWADoUEm9wNAaFA2vZURb BVWlnwkqkoUlYGFfU7Hvqi VkIGZyZXNoIGxhYmVsZWQg l9q0bBZ3rJMvhVO7uQYtdF qeSoGeJU8rmULdGZ3eNQff DOpsygNuf4VxYN69uNXcrp BhbmQgIjRSICMxIiBpcyBh IDAuNyBjbSBhbnRocmFjb3 ByQpNozG6ziXYpl5EdAYhd iJvgRPGvsJMwpPQwnN95gf Qai6QrMKV8EUHhMYMnMDWr uI8pJBJ5hGBhwONufVdpyO RwjsOqfYJgT7TyFXU0rsGb GAIlYLvyNL1tRYQzPXJrRt RlBIwtpUSnM9X9rI4tXgTy VGhlIHNwZWNpbWVuIGlzIG AerFegLVz5TBP3Te7moWIa GFKgfiNBLS36AFIetDBwAH R2ED6qPTHnruaoVCScHHVg UPU4ARxxuB45nNGrFAHrMQ PpsEYaxOkyKtyyvFbdx5Cs dCBcXGlkIDUxMDAyIFxcZG HhY0FYWMTyACPrJnZvBXAr ARf2WYjyY8TPBDAdIPGlXS W0LSc0MtK5OAg9MQEGZi1q Dzg7Xny1LbX4WYE1MQkaPD xcdCAyIFxcZmwgXFxmIEFy cMGeYQrcxuM5EBSiKhMfLP 7gGEkruBpzNj0dVS8fjFFm DKTeMbDpHrAwVNa5CPYmNc Znm5addRLeXWkgUYX2iNFy KCIdHTErHJCwKN16KLuuRD MgbmFtZSwgbWVkaWNhbCBy ZWNvcmQgbnVtYmVyIGFuZC ZdTEPhExFpHGvqQNJxSY71 IGNtIGFudGhyYWNvdGljIG u3zTUrAC7xFBKjy2i8gDHh GMEaKKylERNmj2SbvWMeKt JgvOXmS6kbEONrYWkyj6Yj NTYhf8R3PWL4cNI7LHvpLD Jst2FriSLtOSSdMFBmbmTw piHrwCVcoMOgyTX0OUOrvN 3yBVYsHEIqocywZKWcY4ny iRLaCFGKrfG2bylbWZyXRE BQQSAoQVNDUCljbXtcZXBp J4QgC6UmqaA5y6szmCovu9 NmwNYtQA2imYGvdQ== INTRAOPERATIVE p5gfgTNjMXXllKL3UgZhXK CONSULTATION (test code Fug0btx9EneHLtqVGqDEvg = [id number]) cFNgwvJxzx30eCU4aV41HN 2eFXNwDtJ0GNJeaqD2Wbs7 QPMeBCTnyUBfC703u5mce0 pufwQktJT4zYrxPGWbehye RjU1AMqpRABzcjvnWMc5XL nfISAftMS7ZDHfjSYzS1Ow QAXmUP7tkar4ZYK4KSysUT RnYmQ5KPYhxVPuYRZdjSqh NOhtg930FGJ2MhJzHPSmrp O8AMkrUWWaO9GgS3LwVUpp SJN0BQQvCPShRGSnBKJaXU ZeOHlctdP3p9jyTZEnkFCr ZCU5OEmvsJDxMDIgXKDsKA njWaVITsGhGxU6KDSkVmE5 RvP2WEf0BQYQCbFmSgHsDg UzHBH0QIwcUWr6GKt4HVsC WeB3VKVwOCSsXYljXEG0KD HdBHq9BDRbQFmklWImQZTh RDBmUBruQXrwF76fwGaxqK 5cZnMyMCBBLiBEaWFwaHJh P38ySDOgtwdmwuBbYJIECJ BIUkFHTSwgQklPUFNZOlxw YXIgLUNBTENJRklFRCBBTk FdVAvHJIbBZOrRDCIXE2EE TEVccGFyXHBhciBSZXBvcn AgSXBysRKDoh2qO539XJDu HTDbQpFDjTLtCAatj28xKu 29WtEuDxOdCYB4KJE8WWPn a2sfqYqxg4PwjJGcEAhkTD FpwKZeRRzbqF5aFuNnd2sl uBq4MGwnggI0MUSquw51BK wjLGCoS3LhD4UwRHvzQPN5 HGObIfSrAOOqUY8IHcZcOJ erPIFbCgfiUPm6RKs3MD8M KrYgOWVhByBnBEF6HNIxTJ j1AJhxFP0VIEY2IYJ9GRMo WYV4TZl9FWKbQPSiFkBnHW DlQKdhJzGXriwojTHnKB4t oVnlmrUeTIJvYMd4rEGnTI 5vZGUuXHBhclxmczIwIExZ RVSRCC3HNXEaBGWVQNKAT3 6pYicuDZzFWBZCK28fQLZI HKPOFZCLXgqwjRBgIO2VKO hOQHbEOADDC8EeXIFOKXwE MN8TYHhdFEJsgKWsEVDqjN 5mdUKsEIW3ILTqCtKKs9in bC7sGZWwIVGthEhasZQbzh AzLzcvMjAyMywgYXQgMTA0 Rc43TGSvnFEtREL7AB5uQN UlrcsmPXWsWBXzOVX0MIsn fW86cMRqUUUkODIzpZFewL rsRikkrPfpo8AwcCSvNBkk ULNaRUJmIVlnSVZgR5RUDA NvKQRuCkEhVTTsXPh3BFrl M2SZPTAfRKZtRUNaAZI7Rm P2SHl0CZYLXm4tFahaEKms LyZ8FPK3UAxaVKhehXVwRV xcZmwgXFxmIEFyaWFsIFxc dgD5LQOpOjXxGn5bRIJlYc lwIntexUOkWSPfHVJbAP1e BS2qqJEeJZGxKkTrGDRFQk moLlqSXXKyBDGOUAHxPX7E QMNXPn5ZO6bGRSohJFZZR1 lXUtfjZXBmMPEER3gNJECN VAMUFoWMEAwNT46NYfFVCB IcgrgzBHLbRjZvk7L5YQOt IvuiLAThPXYomEN3ziUWpr 2uPtsuuAU3PS9dIESwLl5r XRLkDLFvgEBlAlC6PttdSM KbW9WbI1SgebUwlDMlIYDs bnNrk7nsHUL9RDGlqYPnwF CpFlOeXqaiVRS3h4baORHd iUVfBZD8HFxhzUVrUOWkDI MnIVqcHvDLGtNnLnD9WJZw DuR8UoO9BZp7BLTDGcEwHx KjMqXuKECsLNpnNUn8LKu6 CHrEAwC0TSWnXTBvCBNyNM K4JGFuERs9AQPjIUgriBCu XEPpOZMoLSbcYAemZ43qMp AsFETQLySQtG7qGVWZdEnz uNPSkNOpslGUr0BhHtziIL JcZnMyMCBSSUdIVCBVUFBF MvGUX9RFTIJBW97ADFdPFO VRAYTZBY7dGAMDEuOVLTWV CSuyFRfUPDEXC740QEIpzc QnDUIGO4WiJGWRL9EYXPBH HjXBBF6IIIIYCKYnK2TQA8 WASRRhnkLnGl2rXMHMW8Aj SURFTlRJRklFRCBJTiBQQV HILqRZHW3RRQKxtbzkUBGf EjIih4Z1QFKxTjtvMYTcQG ItxFV6txYIiz9dPykrgLW6 YJ0aDAInYo4vYCYlTPOltO TySkE5OrekENLsZ3ZwB4Ys efA6w6thzHqtx5XzoVZlDS 1ccGFyfQ== MICROSCOPIC DESCRIPTION h8rteRRxFERfpHE6YiIsTH (test code = 3371) Pzj2nmt2RtkCXrvMLxOZgw kDIonqPils80xCU4tG98GH 0pWZLeYiG7CRHraoV5Jgo1 DZSmZJOdmOKtT425h3ftr0 nhpjXpzHC9jYyyIJOtdpwv XgB7ROltFZUnqhrkRYc5BG ceJSTupNN1BRQolRPzC0Mq WGVyHH7ukqe2QHN9VXzyRV QfKhR3RPPxqMMnCEJkiTaw OXvpz943SXH6JdKrUNIaia BmbFgnmX4vFuLnAYGYCJKq c7NyMOAmzIRkgQ== [facility] [id number] 16:43:29 Test Item Value Reference Range Interpretation Comments Case Report (test code Surgical Pathology = 104) Report Case: [id number] Authorizing Provider: Izabela Galvan Jr., Collected: 08/15/2022 09:30 AM Ordering Location: [facility] Received: 08/15/2022 09:37 AM PERIOPERATIVE SERVICES Pathologist: [...] lymph node #2 ADDENDUM (test code = [id number] 3381) Zpe3scy9YqqLPanCKyMRwf eXZjosPety10bGX2qW87HN 4mYOPcGsO2BTNsxpK9Mnw9 CBThCWTnyEZxM471u2iyh3 ltbaCjjJB3rCmjNHGhfiow CdE2IAzsVSYrduvpMQq6HB vlYPGcaQK3UDPyhEYfI8Dg WKKyBR7wpqy4OZU5THhuYF YmYmK8OJFhjACrTMBuwFpl BAhul062DWH5XkBbCYYwzm KjpBhepJ9pPxSaWNHZjLqg IGFkZGVuZHVtIGlzIGJlaW 5vQLdci5HbVWF3vnKtIAWo nyNlayIgcMz7ooDdWdNBVS mdHCAntT69tq7kxRQwndRg MPOwa7SnQGJgIODcYcJqW6 Jzx37tX4DgXQUjt8OfgM9p aWVzLlxwYXJccGFyIFJFU1 VMVDogUERMLTEgKDIyQzMg R7txqcLiCfQtqEVtIVZhhc EBXCeuNTMyRbPIToDoqY6i EWu2AA9VJXBHXTTTFSLQYI VkETKbgeTDHLCcF7SHQrZ7 IDBccGFyXHBhciBQbGVhc2 Olq2MwBMP7pYFolDEeCLMp UY0mYTIqmfMwl5U8QAYpjf HclGQ7uJSsTSHycDDnsRVh cGFyXHBhcmRccGFyfQ== DIAGNOSIS (test code = w0rcuDMtFCFjt6xaTCSmpX 3220) FuZzEwMzNcZnRuYmpcdWMx IHtccnRmMVxlcGljOTYwMl dintHkRXIzeMRdV2Ijwawt EFmqYS9lTZ2xeIvfmYWtsY VcQDRnItMbu1jwf887yAWk o1nyPRBQtyxkjVt8iXmhN7 9ay8V3QxiqM3znXAUkEXqq zmUyflI1GIRudXPoCCr2NJ BhcGVydzEyMjQwXHBhcGVy oRC7WRRlYO9odulgWMqjTV zjVVAgknE5HSNflDDiD1Rb PZHoEE4vjmanMUM2FAchNI OsZLQ5SkErTOBpb7Idzcj8 MjBccGFyZFxwbGFpblxmcz SkEGMvJHPMIJAIMOTGZ22v VPINZ0MZFNVMB7JfUgQAVo QZBWJIF8WEM461JDNsokQw HBImFkNWZSGZNzVmRa7ZRT 5ZCZkOAwVSX9hhpZXzHHOy CAUTV5JHQsaZHhEQQaTsH3 nDH40QBcCUGvKIZY3NYRJA H55yrSEvOQFgvbFCOgCpXZ eYQKkyAy2ECIieH7EPQVmA WyVhMYVMYBVJXINYD6GSL8 46XHBhciAgLSAgTUVUQVNU PFKJNoMXOJRAST1XFbKFFY HBKK5QEWByQO4DV2vLWT4C TPQfQ5GfQtINLA1KLCGAS4 JSSnKjHR3sFWauTAGuiUYa SYVkUEUEUC2ISNOZC3JAAH MZZPSJJZ6CDNcbMVGHY7XT ALeXKwWOB7QdPdMQKeOBXP QNI4GQD170RCDiofTjQYDl E56JSAEOMfbCQgXMIO7YIV KDA5KXYHoyStMlFSRwviqv YXJkXHBhciBELiAgTFlNUE lbMn7EZDtwF9JZHPqBCiY9 HVVrGZBVORQFY6SKM592WO KtikEsCLTlD01SECSSQtoZ NqMBGP2NUMZFF0ROADeaMp EpXHBhclxwYXJkXHBhciBF HbKjXBqMZAamOe0CZQbaO9 NNPGfQAbA6XNYdXFYUSWIY G3MFU839MFBzlrGiLOJmJ5 3LMDMVYjbCCvAFHC1PONPZ Q0NBELujUuIeIJPnfxcsLS JkXHBhciBGLiAgTFlNUEgg Pz7NLOnkA6PIWYzLSyQdWS FBOHUoOJUKEEKCG0ERK598 SAEdetRoWKIkR24GTOVXWl ySCcRYCE6YBLOOE0PGILqd LzEpXHBhclxwYXJkXHBhci RCUjRaEFnJLAuiHv0KXJir U2ISZKkUFbEbIYJMAZYrZQ BBPMHBB8HQP211AUHciqRk FXFbN79JIYZAQqyJNdDGZF 7OHIZTA9TEUZsaNzJdGKQy clxwYXJkXHBhciBILiAgTF iMNYneTx3VNAkxM9RGAQcA TiAxMSBSICMzLCBSRVNFQ1 NIL251FSRikdOrVLHcX40R VLYQXdmDUbNFXK2WUSASU3 RFICgwLzEpXHBhclxwYXJk XHBhciBJLiAgTFlNUEggTk 6YXIrpH4NVAMiZJtAxAYYL FHS3CHWUJOZZP1AJF324JC ZnffUhYQFoJ47FBLKOFmoZ UaUHJG3EGRFQH0GYWSfxMv EpXHBhclxwYXJkXHBhciBK LiAgTFVORywgUklHSFQgVV BVOOPjSO1UMLikFgQDMuPO PXXAPE9XQucOCpJBMB5TYb RSJIthGgYSXbDCFSNOL4ZD K484CMRjavMbDONpM0BFRG 9LOCJjT4UUEIDNQJFJJG3P UEBaFSWJAcQIPK8RKxhRTa CiUtELPUEJDlH7QKSZGJAV TUVOUyBNLCBOLCBPKVxwYX HkeSIyLAcbCEPDEU3VBVNJ GLcTQJFLHPIEHhDGJ7FHQT BAJn4ZV7oPWCdwLPWEM1wB IENBUlRJTEFHRSwgRlJPWk TPMVVKH7RYB251QGAdmpVf TGFwNDPHH6JuZWOAJ8PNKM GQPoQDPG7BUBTXQYRgU7UH C2RRKHBnlxCvKAFoOxPWDo EZHSIGRD4QDzlVRfCXFz4F BDElMP9OH4WQPFSDTPWYFy LCGPtDM68WQiSEKDRqdkta GDTdEX0oUPxCBxsvKRJWV6 hUIFVQUEVSIExPQkUsIExP FzSSLM6HLWwhgGKrFGQxYF x+LSBcfklOVkFTSVZFIFNR UZXBS4YLIVZJYFvbX3MWC9 pSU42RWIXVV8FFHfYGJXGV AkAPD73BPBynYRjGTxGCDJ 2CBFPQBODeuFRuZG7dHNk+ ROQHD7CmTMTYP3ULMPQfEC 9hAUlrYv03FYesBM8mYAQS XHBhclx+BIHknqEOAQ4ENL jUYhDBHSKoRayLI8OUEAzq UExFVVJBXHBhciAgLSAgQU RIRVJFTlQgUEFSSUVUQUwg BWpYRYFZSKFDNwtAZq8DIb VEXHBhclx+LSBcfkxZTVBI U2KUH9PWAZUBXVvCJxCVZJ 6VOExNMPeKGZ2NEKUSTJHp pKUmIK7rLGt+QlJPTkNISU FMLCBWQVNDVUxBUiBBTkQg GDSPJZ9WDYzHQSvtKwJVZP GVPV3VRS2ZMqlIEoTlQO5W A3IHHHWUWOMDBxXCYMuSK4 8CSiOWYOZzaei9ZQMtMUDL Ro6HY7cXPFdaKUYGO4oSUs LnAgXyL94rJSiAUYsgZNKk xEEqCL9cHxETR2UZFCMaKA UHH6mCZtKbCcDzO73uWAbR HJhrEXYqgLKwRU0sIKUXKA 9NTPiXUVdiOCTXT6sDGkKd AwLcW47iCBgNBIjaADTaO6 DpPSMyVCJGIOBUZ8WDUGrK UOMIGFOJY0XKUJVVMgWJZq 9NQSBJTlZPTFZJTkcgMSBP UfU9WQoUZMMAII2BKRWCAJ fhNvJbPBXdhvuuExPmOZ4v SMNBSN4KT1bXEVAyNQZFQi LWVHAOFvQWVM4ZEZEQASPJ JQDNWesWMq1BF6wHX9bFEp IPMECATRbUL0mLORSUDPRs qHMmHXCvLZKmIv7FNLebLY jJHs4RN85GDDUpPV6JTSuP I22SCS8WWGNpwfn+LSBcfl BGEQpWAA5QHERfI0VSS3aQ HpslrAS0QuYGvAWcDSjVCk I6uHscSFNzHHusYpRqUNyu BESlbMCkHUelGXBcNN7cSS qOOduoUYNVK6wTAPKOZOLQ FJtPSoCrRPDKR83WVWyLWD SROUAYGO6iUWEFZuLCYbKp TZmGIMYJIHxzZFGEJ7SBVR lPTjpccGFyICAtICBORUdB GWhWLERDD9YpVQVMVBjDNK 1EPSszLESfhTIiTJ1lKJJY PT7BOLDIPTkUQMYJRORXIi JKB1OBLKUDYe7ME0zASGdf FBEGK0lFXQ9TMMQHYB7GKE JNCVXGRAofNIDJT6WBFLgJ TjpccGFyICAtICBORUdBVE zXLEUDH2QeBMLAEAlQUZ2L WVxwYXJccGFyXHBhcmQgTy 3dHEkGBpxdKVJJT1tPTEIR USMTDZzOAbVmQJOJW09ARW dIYWLBVEKZYP4hNVMHNrPC TkUsIEZJTkFMLCBSRVNFQ1 KME974WGBfcpZpJBMqGtYB DQUJNoYrTo3ITF4MTIuJUg GWR7lqyIVaFLHbcixoTKYo OXUoGUDKNZ2EGAWEC3YAID XMJMKKVH7GOTBOTUSfXVVM MRWYQ0DOX133FICikqVhLW JSAGLPFTRDCgwUVpMGMY4I CZLXM6GAMyVpTQ38WDnjFD RlmQDwXAZaBQlFKDILIR6C LTLwTAKGETZFB58yRUCcHv WiLGESP0BSHYzBYaklbTKh ICAtICBPTkUgQkVOSUdOIE pZSVVYYA3NDEUhJKNkNAtg jAJchEgkfkKpSGyoo3YiQQ vuMEJiYG8gpDwhNBLiPL9t SSYlG4tcjY0kyin7AqQlZX IhXpA1XHLykyC3Kdn9UVIn BCguj4izf0LvURFoOEx8nJ oyIhExBRCzi5mdynPvFtKm YRUvWWZsBTXqvDTzG013m8 gxq7lbgwYalEX0MUStMKG6 ORvcrtVujoN1MKiibROgZn Y8TJccouVvZMppbjJaieMo Zsu0YKBpP250QKH0cJezm0 jzYAJ1LBSoUWYiRhPiCm6o cRBbD972PCVtRPYATDOwbP z5NNPdfmCnitQmvLEJm517 N618n4ahEQAbjtCdyRyBeg ugy6muM782RLYmyQOzmlSb GeTpGWRpqXOobWN4INRzOY 1wphlkXHbfQShhSYHcknJ3 GSGzxUHlD4GvPFFnCW1mzb guOZR9YJnoZMPyMKB4CgZs QKJqa2Fbtne1OdMscd9tcd 57FGA6x9OetSdeRVQ9QGI7 DwHcPx6dxAAlDDQyTF2aMy YvbUKjNGTzxa93gNhgODtg KUR3ZZSvzhNuc4Acs0rrBd ZmbjEkC6xcK4FkQMXyGPBq UPZjNfRqhlTzy5Pwg8OkzU ShmBb4i5kmAWQjSCHyyMnl m5hoCHL9CGVexTZpC2lwrV 3dBJGjAC8mbsutv1crLOuq CHwzLZOjhJU8yhL8TVUsoG TlP9PokK9qPFVeTBfsPFUi asb4DvWqAx7thUMdhYbfHY xzYmtwYWdlXHBnbmNvbnRc cGduZGVjXHBsYWluXHBsYW luXGYwXGZzMjRccWxcbGFu ZzEwMzNcaGljaFxmMVxkYm UoQXSzCBlzK1lrYiWkGvQb Ups5SRFavNIqZIBlPun7JY OgrEWqVHZZaTafqT5wPPQk jTsodO6ajEW9VZRizcVsfN HEsZ4iKQJWzW3rSlU4KZSm Rxk8CVN5ChDnoDYciY3= COMMENT (test code = t9prrAQeDOKlyYH4LuHbBE 3359) Cqd2igg9JntAKnlJMrBHkh hFIznsZxuf32dRO5nB62RI 1aIDVyXvH1NZEkdjX0Uto6 JNVmVIOeoLJiY345i1erg6 wtsiAlkUE1zKxaDFNqttbd GjB5UWiqMUMdmeddZQy2HT ldYYZviZF0WNAdyYRgZ1Nm BRSpXJ7rqws9HEJ6MXciBX PgBoN2SMMuqVCdTHTmzSjx VCoyd254WAG4RuYoPZShko ShfYcfiR4gZeEiCULHlD9o FOEzIDVzd2J8VTk9WVJakl DQeG8uayvhMDAaSLZstyVF t1UjMQr2OYliIKpoOSUkfO PuVHP6jW9zGKabeNwwNyHe d4JxcYF8loUUGC5hBY2itD kfzeYkm2DfXrqvrCDzg2Zo ILBfd0PwilkgHHSuu3ZelY Sio0xaiCDoTFFwQGYofcMk IQVmxxWtpiThYCZoseW5pC 5ccGFyfQ== SYNOPTIC REPORT (test LUNGLUNG: RESECTION - code = 5765) All [employer] - Protocol posted: 03/01/2022 SPECIMEN Procedure: [...] pN Category: pN1 CPT Code(s) (test code w2rllKIvJRSqmPX1IxUeWY = 3357) Fkt5myt6MprKXynGVyDKec mRYjxvCufs63kXL9dO05UW 5qXMGbUxH2CPJwqpT5Jqo8 SLZuCAUzdKKbR913h5duo1 qxmoRflFC8xSuoKMGjujcx EjI1DGuvJLYamrahFZi0KR ncFWQjxFO5JSYmqIZcL8Oa YOUcLI6wqgl5ZEI1OOewVF WyCqD3CYGuuKIlXOGrtAzt YVczx371XPA1RqQeABGfna JhtFvahL6tObDgVZI8TZDn TWg0QEEcpfC8JALaG6msKD TfpaH5NKZbVRmoCCAiCSmy MDVYMTRccGFyfQ== GROSS DESCRIPTION (test o2xmaGByKHXkvGM6TzThGC code = [id number]) Fuh7nbr8ZpdWDgdSRhHDpd rWInrvGyln04dMR9aV93QL 0fODYrSqT3GXWmwcL0Gdn9 JEPhSDTphEDgK500b2chs2 ebgdZiwOT7GZScMRJmQ2Kp BS4bFPWbqBIkF51tdHMcIY R1HGDpCQDtbVUgODFfNJN6 QDAwtWZhK2yoUIPpGA0gjl hfTKtzKUipVZHycXD1JNSy oREpF9HkXQJgQHywNTDerf s9DlZxHb3wmWMqsJeeRFzy FBEnr1gsIFQzbZXxVUB6KN rilIChKVHuXVSyXQc0FXXk TCqcpKHdOT6meHucFlqnuL nsz4MwoVYsKUkaVOFySXCp NUfxXWZpM7EFNCSjQJUsLl BbLZRnQYb2OXhxY9YOQNLk LTDwGXCsWNq7KbJ1XBz3FO ZLJk2uSaa4SMtbAMWnEYT2 OTkxIFxcdCAyIFxcZmwgXF rpFAVjeWHmOGacwlM5DPEe LKvhSHDfVfVmWY9jRTnsbV hyYWdtLlxwYXJcZnMyMCBU xEQbz0XaH0mmWZ6roDWgwv UsUBw6MDGjSeFim7nyZo8z BAXln7fdocNhIXU9eI6rNX DfKYtri4EmrtktnKBzGWxx AGS1iCSjFTLeUKUmQXMwYV 50XCdiNHMgbmFtZSwgTVJO IGFuZCAiZGlhcGhyYWdtIi BpcyBhIDIgeCAwLjggeCAw QjTuI54xzGIqYUu6wVPcEO TdxwB3ZGbxmQCaZZNqrUNb z7JiRlL1cEKyvENdz5GxtI e2aNTaERadZPJklT7lxG4e VyYhYFMnt9iueOetx3DomH QiSPpsIVEzbAKhULkhnH2x VwCfj4wugYw5FNevsiE2IU Xvam52PAciPAVrH0ZeI6Hb QLyaNMJ5ZUGjYvGaSYMmBI 7WXwPdMQduQVWqVomnOEz6 SDt7PX5VEfDvKBDjRtLzSW A4LdUjRKk7TRfpNJ4JXTS3 MBY6AHjoHJO8SBy0UDZnBK QgMiBcXGZsIFxcZiBBcmlh oUThUQ5jpPyjyzHlVMUvOE n1rJFpVX0zITJwSNQidrdx czIwXGNmMSBSZWNlaXZlZC KpesUat7AnJEfdfwAvNDAw bGVkIHdpdGggdGhlIHBhdG jawzWfO3L4ovXhVQ4kHTJj HZCpQ7CdCLMiS23gDBXlgQ 3mMKMcCV8oAEr2IMKiGFKz JzkzMTAgUiIgYXJlIDIgYW 57iZAwT170bUQobAjtmRxl hz4jFIEuiUQxy2BqlA3wNL HcUGNocWGmdeLqND38EBDt LiAgVGhlIGxhcmdlciBseW 5npUMbz2ZpMXpoOICbd8Xr aMEqHONwAYW7iARop8GcI2 dkXM6heNMnJQ66kYWuuQkn o4QnsXp6dJSqIphmAPAdrV RlBULtG9Brx48bY83oBToo cGFyIEIxOiAxIGludGFjdC NmwL7ixXSuy5PyVAOoglMA Rl1JZhzfWIPliL7puDPym7 QpSHTocOSnQ8WpMBjbRJGv A2HpA2ZfklTizIGnJEBtiu Ypp3icQUJ2KTFoxIKqrFBx MqGwBzjoAIG7t0ilZHAjtZ YqCUH3XWahoWPrGVBvYOWk MYlzYhPWEtQqOcX2MYQxJe H9DxQ8FTr5JPSNOqOdTxHv OmNrMDN4DBZlFUe7GSx9ZI zIAnQ3SFppXSKoOlDlQTJ1 UCPvHVp1PJZiXWjciRTyVK NoITXmWMlnJBqkS19iDaOr GWpkPhWeZy4gOSdowKvtKb 1hBA1csZZnUYJkHcTlSMqh IHNwZWNpbWVuIGlzIHJlY2 VpdmVkIGZyZXNoIGZvciBm ay29OL9aj1CqrLqyymFdmR Dqia9rfNOpURxlJsVvMUYh c8n1nPN0bROcsIJ6xCSmsK vkYzSuBA9lhUJqAA2NWxXf dgGmBic1IyHbdoEeIFMaPD U5MZCgREB5GOYzCgQxhCYb ujFqqnOwn6TzVoFfuH0oyA Ioq0KhOePbJZfnUIJkSLBi hONjYMlpKTLlo5LdxVUtDH FuZCBhIHRvdWNoIHByZXAg dHZkfYYiXO1oMMCnIXVqzJ EdkK4ivhYyodKwduBirhRc nWPjgKRqxAL4WQYlyF4gUx HhAtXjk9wfjYcuf7GdcPVc HKhgLGDenCGfJMlxiN2bTc Dez8mtcFd9XIsvwyM6WOEp ti97SNiyXQDgY9UrJ8ZiNX yuSHR6OXMnMyHtLHWiZD8R HvGeVOfpQRIhMzbkRKi8NE s5VB1TEjJoCPPiKyYiBRls QFAqOFf5NHbjXS9ROAH9KM Z3TNIdXyM7NPy2JNBfGQNn MiBcXGZsIFxcZiBBcmlhbC OoEB9lbQeetxLmKHHzQXv8 pRJoGH6vQLNtYFYjloztsb DaODJnX9ZwhpMnALEbNTEt UHwpEoFdKABnn0m4zCX0bR CmsHK3rDDttXdzZkNiFX9j sQOiVU9iQLdtKPrsmlArt0 OuZT57bYPhsuJczeTlWam7 IiBpcyBhIDEuOSBjbSBwcm J3fP59q9z5NFqoW0ydSQQd JB44uXBiN913aSYecOljoE sqoh6ySKG5sWQ0BLmqQQOf d7JvcQZyLRSqGPWijzPrdt QrnXOfgDTarIU9OBUenY2a ZUNqCHJno4fzqNafm5WgoA YbXXfkIOGonCXoFTutvI2v QuZve8ygmJb7EPkyygG3DJ Oesk33BOvnFVNyB7HcL5Jl RXomYBG3UDStWoFtJMMcQM 4CEhNgQQcsGYNkLkzdAAc4 WPa2PI0XByLcAPNkBnJmPW rgDILeRZy4OJffML2KIOD5 DTT6WNExHDX8SGo8FZAkKZ QgMiBcXGZsIFxcZiBBcmlh rEZhRY2ttUepncXwIIPpYI v1kGGhMO4oJNQkVUNxnfdj cgQnLTNbW1RaddBlYYXqMP XrGUgsMoYiZDJyz3s5mBH4 lPZykFZ6jPVfoKtuIwOtHR 0ckUOpBS0wYJwiZNawlkMq z0PyCJ92jDJoatJpwjQoWi s6FPTjQdUdiqJoEIPcGxH3 XMBnXpM6UQQiWHVicBPrvu MpolTbc5VkSaZbbX7zuICf u5JnIZjjnLwlBZWytQVhcZ RbnY62ayBnt0DkZNP4DZPz UCDbUCFycL4xXUE2yDXhtJ AfENXPgYRzkO8cwhEyawTf CBRcNIwsrUExTZT5oL1kFB YjEQ3nKWKnzWxwTGn1WSQ5 Xj4kqOVqRAJyjzGNXG3IUW 56CUOteCFsONF3ZN9fKDJt gibkEANqJHOnQTT7OJlltT 11bHQwXGZzMTZccGFyfXtc JkyerDkhj8LhfTHuNNtzXE VvQCDrKPvxFLRzO4KKPFEc NKEaEmUuYEPbAOt9KAmuS9 ZTICIgIDMzMDAyNDgzIiA5 PNu9JSTBWz8dNoe4UrR5WN f6JCA1GLwiILffdWOfRFlg ZmwgXFxmIEFyaWFsIFxcbm H0WPMtZuCiOo5wRKvgkTgc Ol5kYZ4koQNtOLVpYsNrDl WjVIc7BHEeVaBxe6zqtSWh IBpkWRZ0cOJxEYRmBOKhOD QhCM51TQfbUXDoclMaDDsz bWVkaWNhbCByZWNvcmQgbn VtYmVyIGFuZCAiMTEgUiAj YXMfiBCsOCOwVlLxQ36cCC 53yFHiE390gAGbgViuiLlm ow7hCWQsjZZaeEE8NCWhrN 6mzY10rdWkecODPN54WRZc nFTyKYQ8DG4jNAZssjigJX IzJVYiJBE0UWwqvA46cXHr XGZzMTZccGFyfXtcKlxlcG tto1TuaFTfOXbeAQSjDPMe JOhzVHPxK2GSLYMoTVEvTw GaPBFzCUu8YPeaX8UMSNMr UFOkJVOnXTAqZwT6HKk2OR ZHIj5uNlx6JwW4LvVfPTU1 OTkxIFxcdCAyIFxcZmwgXF fxLKYlcXNoHQrsanW3QGPa BdYzDb5pTJcojXhaFe2uOL 9ndFTaGYMaSpLhJdXxBQh4 QMCyWaRxp5jonLBdIZosPW Y4iZMuLZTpKIBoYVXzZP18 XCdiNHMgbmFtZSwgbWVkaW NhbCByZWNvcmQgbnVtYmVy IGFuZCAiMTEgUiAjMiIgaX FsRDLbXpmxR44gXG37zJYr M329sLBvqApasQluqx0gVB L3mLN9IWypQBVac9TghFZf IGFuZCBlbnRpcmVseSBzdW UmkDZ3CLBfgC5gAkDwXjIn m1kapJrlv6NsgSJoJJfzYJ ElySYhYKdypB1yHhWgv9vh aWj5UWbdmcR5ZTJddl12RI izGCJoE8DdI8ByERxsQFQ3 SBThNfDnHCDeSX4XKfKhTU dbDYNjSedjQWl8CCs2LE1F UyAiICAzMzAwMzAwNiIgOT m3PVjkKL7BHVU2CEQ7JBNz TGD3SVp2HNAvPJVkOfHoGT VsLGomMsQSnmoauVGpOK7p aPulidYcQHmcEVf6oCNxKB 5vZGUuXHBhclxmczIwIFJl G7KonwQkWPDxCOAxZGzdNo SgSOFjw1z4qRZ9uHEedNP4 nUKjuUolXdMxYU2fhZGkZQ 7wYHtfYIyiubZmc0CnVR13 bWJlciBhbmQgIjExIFIgIz VcQHeaATKsZZ5sTNQkWEXt sHywFAOfcZghAQx4nTTtYZ 5vZGUgdGhhdCBpcyBiaXNl Y6UaEGNlbsCaLJ13nUWpiJ oow4TesTz5aXXjVOkqFMgo XcurTARkK5LzW5ZdldUlaZ XyIALflyQmc7gvWJF5QSCx yCWvrITfBxLfImdeZUN8g9 wnAEXvxRUnNJJ3ZUmgpLZu NTEwMDIgXFxkYiBPVlIgIi S2FEKsLkH7McS6QEz2XRDA VlMgIiAgMzMwMDMwMDciID k6GOp1ZWmUWyN5QJidStp6 MushVBZ6QJOeCEy0IMCeVJ xmbCBcXGYgQXJpYWwgXFxu F34zIhPkDUCPZsFQfI2isM LOz2ShXpwaTREjUxMaYWMC ZWNlaXZlZCBmcmVzaCBsYW JlbGVkIHdpdGggdGhlIHBh xTszsuIrR6K3pnBlBB5rWX KiQCPvV4HsKCJjY06kIRTx gQ4mZFVqIE9yZVNlWFXAIF K9UjXongDkYJWoRAEhjUKc jaSryfAvh3QwIjJjrI0bgT Ada6RzGAFkSBcbPL31NZJg fZ71beLeJZEjDOCyiyCmfJ SzgHO9KGKctF9lpJ55chAq onLDFS03FKWcqQKtFTO9BL 3nTEGmfplzZKPlKAWjRAS4 CDkkuD24bLKgAKDfNPJuyH ScyKyvEmsvtOboe9GfcXOc XGlkIDUxMDAyIFxcZGIgT1 ZSICIgODAxMzMyOCIgOTk5 SBeaF0MSTBXzMWZgHYZqYC O2OnL5IZx9SKRHWi6yPcg1 UeB5FNO3KYP8OUofPLpbiE AyIFxcZmwgXFxmIEFyaWFs IKrzmjA9BOMmSqRvYs8xBP VuZywgUmlnaHQgVXBwZXIg MO3cHY1tlSCeHXNlGuXmY8 EvMELeUZNztJEwcF4haeAj cyByZWNlaXZlZCBmcmVzaC Cuu8YyWvFyniPuFIIhX3Ny s86fPYmoD54ph2cjRIRoCS JlbGVkIHdpdGggdGhlIHBh oWrjpmQeP3W4daJdGD8iOC RKDq1gTX7lNTXtjB3cBIBg vCoxdFQ6gIYlbqFia2GlAw JdipWaJNXzPsX4KNEsgT7c vpOaYuH4KXBkYnLnhKFpsK 8qLMEfNeOuoDmct0PfMWKi XTjvBO91JNX5Ko8ftIHhBO ThsuN9e8BtACwvRSVUNZxd BjgjGEEoR6UvD3XhghWkjI QmRZEvnxTrn5nqYON0IRHp kRZwjKDnUdTyOpasQJB6v0 lyINJctBLxECD8UVdzyNUi NTEwMDIgXFxkYiBPVlIgIi F2BUGsPgX3IsU5PMe9WYZT VlMgIiAgMzMwMDQwMDciID m3UKd9WRtRDvO1BKniHeV9 XMBiPOD0KFHyIMx2KWIiTZ xmbCBcXGYgQXJpYWwgXFxu O31zLeMsSGfgVgGjVn3wVK VuZywgUmlnaHQgVXBwZXIg IO0dID6tjZCnLMBdGtOwF4 DdXZOwJISubVXmmH0uxnSf cyByZWNlaXZlZCBmcmVzaC Uec3ZrHkIxsiVwDMCaP3Vr u77fSLevA96ri6xtQXIuMJ JlbGVkIHdpdGggdGhlIHBh oQwdthWdJ4R0zkKoJS1zKT OQBv6pVS4aLJBsaP5qCUIo bInfoXP1gCNuzbFpl3OkGu SdetXlWSIyJmH9BOYoObP0 FILsLlKuwDCunQ9xGBKbTo PfpKxdk6NgBTTjUYcoFN27 KXQ2Xt9vmMSzBMWqphZ3p4 QeTOjlVGrsHctzNPSzJ5Rv B8QbwdVnhYSeDMLpblCwg2 agZEV5NXZihKYgaCAaTpCa KilaXAT8y9ppFILojPIpXU E2STnriWIiJTQwSJEtNHzi VqIRQsDdLfB3VLCdMuV9Kg H6AGq3HNDYHpLrLnFoBnVx KSBwOjZjVCr6AGv2PMyPPz Q2LGitPDR7TBRhWVT2ZGTx CXi8UKQmGUeclBFdDDEdXT XsUFgzYWcsQ13zKkNlUHan QgOyLW9fLOIoFdliRmlfrS LiLGRiILXlDN7dUT6yiXRy EOOhAhCfU8GaZHRaT8Jdly VkIGZyZXNoIGxhYmVsZWQg x2n4yOZ6zLKxbBP6hNOcrA ouUW7hfJOkBU1JDpVwmvAl TLt5rhjlXCLRUSPpoKCbWO J7XTEzCuyrPDC4ZSHtQjiq oYL0NqCiO28ihFJqZtZpo6 AyU6AspYqxhZLrttWxM5Mp AZDgpOK5tRHpa1Xvc63jDL E4NOIwr58hcIVaOkv+XH5B tSTfNJLpD1TlxhLsUMpgWR GqHHNrHG8bLANvjnXrpT4y niKmgnVdLQMpGVM7EBMsTM D2KPIqXkCowLKmoG9uQYwz aXRlIGZpYnJvbWVtYnJhbm 63hyN8cIMecKRqr4c9yEMd UWGvOYguXMDgx8KhrIFiIm BihEJwX0hiFUZfFJmaj2Pt VZLoi9R2UJ0zcCKdWTDejw BUaGUgcGxldXJhbCBzdXJm YWNlIGhhcyBhIHNtYWxsIG Rwc0OiaHKhXlWwLFwbs7Bd IADmf4Q7BZIqprP7wMSlFP 91IVTno0Qmq2JcAjLuRQGr AxI1uTOhOICimG0uOLlqjN wvnoN9gCGmmNdnUZUwVFAi d9SfsHemGMJumNRflH2wGI BsZXVyYSBpcyBhbiBhcmVh OR7vICN5X0rfoiezZe5qFT AvHSTnAX6ieM1jcgwjiPah wZShDWkvXCSfGDppw20ld1 UvLLBuTVCwQQhcdME4iLAv WUMoQKPlWC8gSXSzGrZyj1 hzCZYyMELnQXytv7vnemOy ICBUaGUgbHVuZyBpcyBzZX PzHDsuzMAiLVA8dK7bWBJq uB9krnH5FWNcBQMcPJowGc A3LNHeSXE4FTCoPSHnxSRk rYkhTVLhpW6xLIttG9LptY 61tKy1TCI1koD2RWjix7ak IPTlmo6bVSDbO5SnkTryrf Fchk70jMOyuUYyuqSaJXOh vL5eMZJkUUHgnNE4jvAhUX I6K1yfdhcbTlXhduM1zLQj MH31TOMvx4Xxi1HqAbDcWA 5cfiBUaGUgbWFzcyBpcyAx VaSuLzOmaRJ1lMJhYrBjnd FoxVEhAP2tvynxjzooBC46 LIZzUINcx25qgQvpPYM4lL 1vbmFyeSBhcnRlcnkgbWFy I2mdHPLbtwPdQNU3kUCtuR hlIHBsZXVyYSBhbmQgdGhl LHA3mWYeoQNbDOVlgSGvx4 FzlMofs9KuZgShEHlzSE6r o9GeXK8qdhPlbjXklSSfOW XwZNVlae2yF7i9yq1zhICd SVMjiaIOwjD5sQUdjW3dYB Nvk0WnAZYeHFO8YX8gNJGc LVQrkFFgtZ3pkzEfutPoXZ JlQhL7IBZpJQF5FFAjUKKt bSBmaXJtIGdyYXktcmVkLC RkGNT4lAPjzRdgCG30dFEp U654qROdDFXyGBZ9zTY3EA jfNKGwVnSvoSBqoc7eRODs ZSBtYXNzLiAgVGhpcyBhcm VhIGFidXRzIHRoZSBwbGV1 syRcOLFIrVRon3CeZRVyfG WfkZzzY1Jdp5ZrNvmoop3h IA2ayjMkw4YqQRGuk6A3JW ZgsjUfMNO0cX4dREUhaN3c wlY7YXZlIMVzCX0tWHvsTJ 3iFUcwWG7xDDEwSWpdlDca U9liU0Qus0UusFHxSQpil6 zcqQFkwTRzMZAgt7Q7dPHg OAREyHm8iEGpRVDjzmRixg Qbq2WnDxWkaA2sbKUmy5Ii cyBhcmUgaWRlbnRpZmllZC IcNI7gvA4sSEXzPa7bTqpw J16yPT2nZjZlvlNyMJ85VM FrkxWqx0PinHllwsMkZXAg EAG4By6nuSYnNC8yZ8Hmj9 VqjQrssS6zcxEcfOTsLHNi XEHed0OeXaYlKUUhUI1leF Vla3KqzPzyZB6ej6Qcf8Ol IGdpdmVuIGZvciByZXNlYX XehM5dCMrhm3ZoQQPxx6Ak C4YiwIxkDAEaBWX5HNuczt 2ciMHgUZQifeYPjicvV76h ZTpccGFyIEJsdWUgOiBwbG U0dgDasWFrHJ9bCX2uERY6 JIEmlmKuK0a1jYJgTL2wsp qjzmanEHSsgULaFUQgX8Ap z05bK03iGSttleafWIAhXX OpYNO5CQ4av2HjyN7avSzj dXJhXHBhciBMNDogQnJvbm YfkPMaxZJkK1unGHTsmtJx YWNlXHBhciBMNTogVmFzY3 KvOCCwpFFpZ0hltgluIF7k BhVjBTvlMRJfCGI0CNTtrS yutJicam1iTFibLazlKUS3 CKCgmSXkMJr6TnGnIVt3eJ LgWO9hJMOdENKvg8JmjURo XHBhciBMODogMiBpbnRhY3 ZkwBwbbXkhbq6gGOCqeFKn UZCjSNHXWAbsVA23sJRjKW 2cTGXkWWBxci3aIPXadIJw HUFvPTJaDOCaOC3iPNRoEl AwtECmFeEctq42hwI4yUEr dWVccGFyIEwxMDogUGxldX OcnRBeyVXhl2CkdiVphc3e IECrqYLzQA8ns5ZnNIcxFq TesV0pBSKhhEWatYIcWaFj oACiiM7mqqwoSXExWKKgSJ 5EWQL1BM9em9TarM9eCOBk kS2kSQM3rNMjnRCpxVIhDU erXp7DRJV8JA2mh7QksY6v E7jzu3NwgBRfNBRcxtBxzB 4hnZZzNZMimL5aFMQhsiLb nvJeB5YcNRVll7IdmGjtve mvLHZqBVU6CxKjJEt3qLTw TS9xWNQfNNAnz5ClqXHaMO WiylPTGEOmBCT9YkVSDEVg BITnDWAoyS79r3l4WLEnnT RoWsHfRRNtrwJmxC9qLSYd euEDYMt4SV5wk6OkiA5rGw JvbmNodXNccGFyIEwyMDpN NVAuBLeuhOtyesVqtt1jcI YdVozzE4xuqVZlOAjgNPkd FF8tqfVngFAcLWPmGZPmbr SksH1fWVapXDBhXIArTOyj OkhxWejvjMVfbwF1NITmJE IybI8nqX7bBSMtc8OuJICp NQT4OB5gFDKgSKRlfAOzBQ HlITSqJZJsSWdoETIsE4Eg H8SikfUceLCzHPVnrqBpg2 rjFFZ9NFGqwHXhfETvAqWk ZbmuTQC6t2hbPZNgjYWuUV H2IXcbzWNbRKAcTPNwGPey AzTRBqZyGyI1IOTxKiH0Uj X5ZDv6FGVRLhQaQyUuLjKy WEK6OKGiZHa9XWg9GVmWUs O6BJe5YHs0POJwDLX4WPPx SXy9JLCtMPwraVPpLKOvTU ZiSYnqSElzT10iHoYqLVBG BbSFaE2xWUNJeVjkmZFRnI UugqQOr5ZhYcmsWKVcWyDc MCBSZWNlaXZlZCBmcmVzaC BsYWJlbGVkIHdpdGggdGhl JJQhfOvwikTxD3A2hkUxAO 7lWWKfYJLvV7KqSLGpD92o ICYkxW0aMZAnOQ7eIKDmOB GqksArUTg0fcuvWAUmU7b4 IHVwcGVyIGxvYmUiIGlzIG CcSC24ETenRE84MZtsBH7q IGNtIHdoaXRlIGZpYnJvdX PeiMstt1DpNBQuKNcmUK93 BYG9Hl7tyUYmAEEadnQ9g7 MtJHceZZ3iZlszNHTsS8Ey L4SbnfUayGLkOWSsvxPkc8 seJUT7IWJbrIDloQZkGaZd JokqHZA4e2dgCQWepSKaCY H7OVntlRXwOBPhQKQgVKxa NvCFMzZcTdN5MNDmRgK5Ws F1MXf9LGGVLjZmRxElBwPx PYS9BrWlAYu5ERu7MBkAVj N4VEc7WAf2ZATqNLQ2IMFs RFx6YSNaCPgkdKEnKLZfWB PdPDjrQYnfG04mQfBaQGXL BbILuP8uIADTnRligGKExA QrslTCr5LvHzpcWSXlEsUx MCBSZWNlaXZlZCBmcmVzaC BsYWJlbGVkIHdpdGggdGhl GKUlpVsalgWlQ5D9pnLqWG 9uKONkWUUaJ5IdLKXbO81o PXFrxX0lTYJwSY4mWJIwNC RpYWwgbHVuZywgcmlnaHQg oYNlMYCozZ9pPZZxnWKxRO AwLjUgeCAwLjUgeCAwLjIg O96tx1zvaBGaEtqxqx73nc B8iOWtbCLuBuLfL21xkmYc b6GldHh5uOSjPNoxTZLddO 7blR5lUmBud3mcvKhbc7Ym dGVuZFxwYXJccGFyZFxzbC 0yEmXcg4pxwXz2AWcngjM3 PMOhzm99NXcnDWEbQ4PmM9 AdQEobTEC1HLOaXbItEZDm YU8LGzDlGMhbQPOgLxliSE g0IGy4HF4PIhZsFQBsEuJz MUmpEERuUWr5ABvrBN3ZSY C1ORu6LDO6XJJ8IHx2UUOe XHQgMiBcXGZsIFxcZiBBcm cwdDAtMB4niYuwjmCfFN2p JPb9hadmTYUcE3q7WDPgdK VyIExvYmUuXHBhclxmczIw ZREvX3JbnnIdUXNbKJDiFH aiRdXaAOLug9m1uEV6bIAr hNE6nXZexExxHiCpXS3qoF ErLJ9rQMlnKUoqdxNtm5Hr DL28eSGgdwXmrdOoRgv3vn miPBVgI4l7KVVvuECfJRbn PfCaEuurCCaqgPIiG5pgSu CothUoFBMnHeA8GNDcITK3 ZNQxFxTtkZNgR9wnZIksgA Rjj9JwMiK7nJc9PVZbzLGt s2QhZPZzs4F6LHVjugFblZ IndXVwy5DvkWi5aRDaXWtl OZZirK9eeJ7eVzSpv0rfpW jae2SlsEBuARnzTJDrlWAu KCkpjC6rJeJkr7dadKi9JU njynS6LARogm12XVjvAXXx V8AtP1LvKRhoDSD0BYPbRy PxQHCkNN2IYnXhNYwyVYRf KtfgIOm4RAg1ZA5MCsAtEH LmMlTrVEE2QyCjUGd1DPnl SH7ANVO6KAt0PUXiZBG9NN q9QGGzZTXrKlJrYGSyRAyc KdVUxfmgcRYnWK4pxQdicn TcEJDfCTr9uPMgUW6uDVSw JJNjxtynvnPoDNLlK8Qqwp VkIGZyZXNoIGxhYmVsZWQg d8y6yQC8qQLxwOZ4jMZkzY gvAlKtTM2xkKBfAH3aGOhu TKmlqtIjy4VwVU72uGKzsv BhbmQgIjRSICMxIiBpcyBh IDAuNyBjbSBhbnRocmFjb3 DeRiBbnU1opCFvy1MdQFfi vAxyMCMwpULrjRKudH62zc Ehe0UsLVM4FQWbGNXdGUWi zX1sNJT1xWQcmFRljEjjvS VzitQszGVhB4PgTYM0dlKg TXFsOFivRF9hFZOyQQXjJw AzPDemsEBdF1X3zR6uOyGn VGhlIHNwZWNpbWVuIGlzIG KvaIqyXYn4DCA8Jc5rmNLf ONPtumONVJ40JXVciASeHP G1JO7uSSUahdypSYFdHXOj BYS5PZnvjC52fJGyKMPwDB UnvKAzzAbbYikxrCqhq0Wi dCBcXGlkIDUxMDAyIFxcZG KoH8GZJMAqDIVqSiCbMTYy KWu2VAmlS2EQQIUiHGHhGM L0YOb6RzK9RBl2ZWCTEq0h Euu5Lkp7IkY1ZEK9BTmwZF xcdCAyIFxcZmwgXFxmIEFy gNOpMSsaxdO0FELmFpLcOA 5bXGqhtGmoAs4tMI6yhMKl GNMsSzMbLjXxGEm7PRBxRy Lqj3uefEYwFTgkCFQ2fJVo ITHoSSTfEGLpBL43TXdfNR MgbmFtZSwgbWVkaWNhbCBy ZWNvcmQgbnVtYmVyIGFuZC QtBEKtSdAgNKoqNAOgCK78 IGNtIGFudGhyYWNvdGljIG s2tHZbUP3rZJUfz3d7fEGo EHPwYJfaGWUdv3AczLFaCy AnjIBfF4ckBJTfMYfku1Bp DAWxo5U3AEH0nQZ7AVrnQA Vaq3QteBGaCBPcGQGcdbFk dhHrnAXqhDRtwVL4XOVzyJ 5kRXIfJEHlhwehNJRzG7mk dWBwWEZZggB3qxpsJSyAYK BQQSAoQVNDUCljbXtcZXBp W8IfZ6PccsL0s9zkiMslw7 QraYMiFE0boXUvuV== INTRAOPERATIVE z4bklUIxOTKbxEV8QyOgHL CONSULTATION (test code Kol0knd5PbfUWifXJyQJcc = [id number]) qOHijgEfns49pTW8dA13UD 5aXSLjZmE3GZHzzsB2Rnq2 XTCoXCVzmCHfA649i5zcj8 vapgFouXL1sNohTEYswoyz JcG1HEmkYCRevmywSXt8BN yoZXJugRY2EMEzbYWuI8Kb OFWxYM6bueu5BRF0DUlaMN WkXiI5RSLrbAFwFASgcArv UIans666WTF2QeDyZQUcox A7LKlkSWAqN7ZqM5JwHUma IDL2CSIeHHXvOTJgBJLzPB SsUYxmypF7d9zaJGNlqRTb CBC7NThyvHQjZJJgNMJhRV xlKnOMZjMvLyV4JYCsYzK0 JuH1PFl2JXEARlTkTtEkAr FbDPO4IKznVRi1WNi4ISrX BaW1NNMhCWPtPGtaLIL2LM HgLYh0WUNyKMyiyFDhXFZk LMDzHGtpWFnjT91ddSqanB 5cZnMyMCBBLiBEaWFwaHJh B84vHRMvcgcctsDzFAGZKK BIUkFHTSwgQklPUFNZOlxw YXIgLUNBTENJRklFRCBBTk FwVXkUIYjJHRpBREYYI3GY TEVccGFyXHBhciBSZXBvcn DpLKCsbAKOfl1hS312CUNx ZEMoMeUDqKYiLYkjt64fIm 90VdEnMkWnQJR5RMB7RKOd d2xveKhxt8DfnKRiZSmkNY BuwNJmOFkwqN3nZkHom5mm vLq0BDztdaC7ENKkyj79HC thEDSeS3TaG0BwPIxtAYO5 NJTkTdYhLQXqJV8REtKbQE xfXRSgXnsjFAc2WBt8AW5E QxJoEUYfDbKcDPN1BZDzMH l1ZNsjCL6NTPN8KUL8ICXp XMT1FGd5GHJrFTWqPiWpJT GnRGpsGkTUzzisdGRuHW1u wIhdvrQyPQGaVDh5zYRaUA 5vZGUuXHBhclxmczIwIExZ LBRWIY6SOUZaDKPQHZCSK2 7mSyjyROfRNHHIJ97sPTKM CAJPDXMQVnbsxZReNU4LVK sBTRiMXSQLM8KjNOIVHYyF RI0ZKWgrFJBkaHKxOEKkiY 2djFXcAZE5OSWkGkXTr1qj kM6oMIBzRDPxxCdacOAfas AzLzcvMjAyMywgYXQgMTA0 Op06LXCmbJMqLWF8CK9zBL DzushcEQVbIMIiULA1SQzv qZ79zMJpNATsIEVtlAVprU crDjzicEvtf9ItjHQwGYyu MYXaJUDuRJujIKTzG3JWOU MuGBSwVxKiEKLrXKd7TIey G3PTMVXhTZMkWFYlRUJ3If Y5JLb5HOALWm9hSahcVRvb IjN6WYK5YKbnHRlvdYOkMA xcZmwgXFxmIEFyaWFsIFxc tiD3TQTkCpSwMw6uEOFpWz huPxotxLFyUKEoFZLeVC4g QA9oyLFkRYSaZpXoKCROXc aqFivFQBJzCFOJTEOxNT0T QQHRWj8YA9tFHDyeEDJOZ8 mREjdvZIHiFTTLS8sOSJXC FOMHGdDTGDnKQ59LLwORXC PnasulJDSuOeXhj5M9DSOn OngiYZRbNPXfpQN0gfDIcb 9zMvwzzLH1AP0lBWJzHa9j AWQpAXAwoKFnNqZ0ZyjxNN NpM5WkI1RscvJkeUIuZWEa tkZhd1ylAHB6THDtqLFmsZ AoMhIlMfucVZP9w4yoZLFn lCLoZKP6KPrmvDFcTGKxFY ElVBcsCfRMDsYaRjB8BTSc MwM4WxQ8EAa2HJHDSiYoKf HgZqDaIUCbIVbdUVu1SAa3 TUuSCnR5WDYvBLCkUDEjKX M4RHDzEHt7ZTAzDKryuUEj HEMnKDWaEIdfRTpdF69bCy XlNENZVhVClQ0vDVXXkYyc nAPUuFAdkkURd2XhAgtiCY JcZnMyMCBSSUdIVCBVUFBF RgAOY3AUIWLKW57IMDyOTI CHTZXAFH8wTKXJPcLQHCWA GQasSSxCFDOLN846RUJrbx ItXXAYF9AlTYWEW2MZWGOU ZfBDKC8RAIVENDTrN8PRO3 XQPXIewuGbVp1pVDSPX8Mv SURFTlRJRklFRCBJTiBQQV YCNxCTZK5JRJNtrevvULFn AbAtp7H4IODwKefjZLYsNP WjiTR3whRGdy0bVdiheDP3 EO4tJQAfPy5aKLMyEFXqdQ MeIdZ4MiraSHSlI3NxV5Aj bbO0g5soxAnsr1YpsYInIF 1ccGFyfQ== MICROSCOPIC DESCRIPTION b3erwNYnFMApaJK6SvOqWE (test code = 3371) Vra2ldg9QbxGHphWLiJCqf xOKikzIotc96wGJ7vO97LX 3nJTWpTqQ2ZPMhljY7Vlw8 PSEgBLMrmWOcL790f6gis8 kdcxVwuWW2cKghOMAuhafy GoQ7PGmyFASxefdkPSv2TY jaMWBdgAK2QFMovODvT0Ae XTKdZG8kknp1AOS5WKqyAY OmHhW3QGJllEUkYNOqvSrd TDsvp265QQJ5FnPwUVMcou NoiQfaiD7gWcTtSAUJKETg q8SyVUIalSZqaU== [facility] [id number] 12:51:00Reason for exam:->[facility] 1955 Sex: MFINAL REPORT CLINICAL HISTORY: CT removal TECHNIQUE: 1 view of the chest. COMPARISON: 08/23/2022 IMPRESSION: The right apical chest tube has been removed. There is no pneumothorax. Right asymmetric pleural-parenchymal opacities are similar. The cardiomediastinal silhouette is magnified by technique. Signed: Chika Knight Verified Date/Time: 08/23/2022 12:51:04 Reading Location: [address] Reading Room RAD, CHEST, 1 VIEW, NON [id number] 10:52:00Reason for exam:->post-opShould this be performed at the bedside?->Yes [facility] : 1955 Sex: MFINAL REPORT CLINICAL HISTORY: post-op TECHNIQUE: 1 view of the chest. COMPARISON: 08/22/2022 IMPRESSION: A right chest tube is again seen. No pneumothorax. Bilateral airspace opacities are again noted. Right greater than left pleural effusions are unchanged. Elevation of the right hemidiaphragm is again seen. The cardiomediastinal silhouette is magnified by technique. Signed: Chika Knight Verified Date/Time: 08/23/2022 10:52:08 Reading Location: [address] Reading Room (CELLAVISION MANUAL DIFF)2022-08-23 07:16:06 [...] CONCENTRATION Increased (CELLAVISION)(BEAKER) (test code = 3438) Coach Tour Driver ID - joseph Solitario comments: Slide comments:CBC W/PLT COUNT & AUTO [id number] 07:16:05 Test Item Value Reference Range Interpretation [...] 0-0 CELLS (BEAKER) (test code = 413) [id number] 04:34:50 Test Item Value Reference Range Interpretation Comments MAGNESIUM (BEAKER) (test code = 2.1 mg/dL 1.6-2.6 627) Coach Tour Driver ID - ADMINBASIC METABOLIC [id number] 04:34:49 Test Item Value Reference Range Interpretation [...] 358) GLUCOSE RANDOM 114 mg/dL 70-105 H (ROXI) (test code = 652) CALCIUM (ROXI) 9.4 mg/dL 8.4-10.2 (test code = 697) EGFR (ROXI) 96 Interpretatio n of eGFR (test code [...] not appl icable for dialysis patien ts Coach Tour Driver ID - ADMINRAD, CHEST, 1 VIEW, NON [id number] 16:20:00Reason for exam:->cht clamped, eval for increased pnuemoShould this be performed at the bedside?->[facility] : 1955 Sex: MFINAL [...] in size. Recent right thoracotomy. Signed: Sommer Hernandez MDReport Verified Date/Time: 08/22/2022 16:20:12 RAD, CHEST, 1 VIEW, NON [id number] 13:06:00Reason for exam:->post-opShould this be performed at the bedside?->Yes [facility] : 1955 Sex: MFINAL REPORT CLINICAL HISTORY: post-op TECHNIQUE: 1 view of the chest. COMPARISON: 08/21/2022 IMPRESSION: One of the 2 right chest tubes has been removed. No definite pneumothorax. Diffusebilateral airspace opacities unchanged. Blunting of the costophrenic angles again seen. Cardiomediastinal silhouette unchanged. Signed: Chika Knight MDReport Verified Date/Time: 08/22/2022 13:06:42 Reading Location: [address] Reading Room BASI METABOLIC [id number] 05:49:27 Test Item Value Reference Range Interpretation [...] not appl icable for dialysis patien ts Coach Tour Driver ID - OLGA [id number] 05:49:27 Test Item Value Reference Range Interpretation Comments MAGNESIUM (BEAKER) (test code = 2.2 mg/dL 1.6-2.6 627) Coach Tour Driver ID - OLGA WCBC W/PLT COUNT & AUTO [id number] 05:31:22 Test Item Value Reference Range Interpretation [...] = 2801) RAD, CHEST, 1 VIEW, NON [id number] 12:19:00Reason for exam:->post-opShould this be performed at the bedside?->Yes [facility] 1955 Sex: MFINAL REPORT CLINICAL HISTORY: post-op TECHNIQUE: 1 view of the chest. COMPARISON: 08/20/2022 IMPRESSION: 2 right-sided chest tubes are again seen. A right-sided pneumothorax is again suspected with increased pleural fluid. Bilateral airspace opacities are unchanged. The cardiomediastinalsilhouette is magnified by technique. Signed: Chika Knight MDReport Verified Date/Time: 08/21/2022 12:19:19 Reading Location: [address] Reading Room BASIC METABOLIC [id number] 04:37:06 Test Item Value Reference Range Interpretation [...] not appl icable for dialysis patien ts Coach Tour Driver ID - OLGA [id number] 04:37:06 Test Item Value Reference Range Interpretation Comments MAGNESIUM (BEAKER) (test code = 2.2 mg/dL 1.6-2.6 627) Coach Tour Driver ID - OLGA WCBC W/PLT COUNT & AUTO [id number] 03:57:32 Test Item Value Reference Range Interpretation [...] = 2801) RAD, CHEST, 1 VIEW, NON [id number] 07:52:00Reason for exam:->post-opShould this be performed at the bedside?->Yes [facility] 1955 Sex: [...] surgical changes. Additional findings: None. Signed: Sondra Reinoso MDRepbryce Verified Date/Time:08/20/2022 07:52:50 [id number] 05:36:30 Test Item Value Reference Range Interpretation Comments MAGNESIUM (BEAKER) 2.0 mg/dL 1.6-2.6 Specimen slightly (test code = 627) hemolyzed Coach Tour Driver ID - DREW GBASIC METABOLIC [id number] 05:36:30 Test Item Value Reference Range Interpretation [...] not appl icable for dialysis patien ts Coach Tour Driver ID - DREW GCBC W/PLT COUNT & AUTO [id number] 05:17:37 Test Item Value Reference Range Interpretation [...] (BEAKER) (test code = 2801) Prepare Leuko-Red [id number] 23:54:00 Test Item Value Reference Range Interpretation Comments CROSSMATCH (test code = 2264) COMPATIBLE Unit ABO (test code = A Pos 7315027) UNIT NUMBER (test code = [id number] 934-0) Status (test code = 4447544) TX_TIMEINCHART Blood Bank Product (test code RED BLOOD CELLS = 2263) PRODUCT CODE (test code = P6792C64 933-2) [facility] Hospital[facility] [id number] 23:54:00 Test Item Value Reference Range Interpretation Comments CROSSMATCH (test code = 2264) COMPATIBLE Unit ABO (test code = A Pos 9536968) UNIT NUMBER (test code = [id number] 934-0) Status (test code = 9720232) TX_TIMEINCHART Blood Bank Product (test code RED BLOOD CELLS = 2263) PRODUCT CODE (test code = W7444Q53 933-2) [facility] Hospital[facility] Leuko-Red [id number] 23:54:00 Test Item Value Reference Range Interpretation Comments CROSSMATCH (test code = 2264) COMPATIBLE Unit ABO (test code = A Pos 0400459) UNIT NUMBER (test code = [id number] 934-0) Status (test code = 5117986) TX_TIMEINCHART Blood Bank Product (test code RED BLOOD CELLS = 2263) PRODUCT CODE (test code = W5185H46 933-2) [facility] Hospital[facility] Leuko-Red [id number] 23:54:00 Test Item Value Reference Range Interpretation Comments CROSSMATCH (test code = 2264) COMPATIBLE Unit ABO (test code = A Pos 1087314) UNIT NUMBER (test code = [id number] 934-0) Status (test code = 2889659) TX_TIMEINCHART Blood Bank Product (test code RED BLOOD CELLS = 2263) PRODUCT CODE (test code = K8327J39 933-2) [facility] HospitalRAD, CHEST, 1 VIEW, NON [id number] 08:36:00Reason for exam:->post-opShould this be performed at the bedside?->Yes [facility] : 1955 Sex: MFINAL REPORT RAD, CHEST, [...] surgical changes. Additional findings: None. Signed: Sondra Reinoso Verified Date/Time: 08/19/2022 08:36:27 [id number] 04:50:43 Test Item Value Reference Range Interpretation Comments MAGNESIUM (BEAKER) (test code = 2.0 mg/dL 1.6-2.6 627) Coach Tour Driver ID - ADMINBASIC METABOLIC [id number] 04:50:42 Test Item Value Reference Range Interpretation [...] not appl icable for dialysis patien ts Coach Tour Driver ID - ADMINCBC W/PLT COUNT & AUTO [id number] 04:32:49 Test Item Value Reference Range Interpretation [...] = 2801) RAD, CHEST, 1 VIEW, NON [id number] 07:07:00Reason for exam:->post-opShould this be performed at the bedside?->Yes [facility] : 1955 Sex: MFINAL [...] surgical changes. Additional findings: None. Signed: Sondra Reinoso MDReport Verified Date/Time: 08/18/2022 07:07:14 [id number] 05:07:15 Test Item Value Reference Range Interpretation Comments MAGNESIUM (BEAKER) (test code = 2.1 mg/dL 1.6-2.6 627) Coach Tour Driver ID - MARIOBASIC METABOLIC [id number] 05:07:14 Test Item Value Reference Range Interpretation [...] not appl icable for dialysis patien ts Coach Tour Driver ID - MARIOCBC W/PLT COUNT & AUTO [id number] 04:28:33 Test Item Value Reference Range Interpretation [...] PERCENT (BEAKER) (test code = 2801) POC-Glucose [id number] 17:50:35 Test Item Value Reference Range Interpretation Comments POC-Glucose Meter (test 145 mg/dL 70-110 H : TE STED AT [facility] code = 1538) [address] [facility], [facility] 30: Coach Tour Driver/Techni garth ID = [id number] for Acacia Mary Lab Interpretation (test Abnormal code = 86529-7) [facility] HospitalPOC-Glucose [id number] 17:50:35 Test Item Value Reference Range Interpretation Comments POC-Glucose Meter (test 145 mg/dL 70-110 H : TE STED AT [facility] code = 1538) [address] [facility], 770 30: Coach Tour Driver/Techni garth ID = [id number] for Acacia Mary Lab Interpretation (test Abnormal code = 99634-4) [facility] HospitalP[facility]-Glucose [id number] 17:50:35 Test Item Value Reference Range Interpretation Comments POC-Glucose Meter (test 145 mg/dL 70-110 H : TE STED AT [facility] code = 1538) [address] [facility], 770 30: Coach Tour Driver/Techni garth ID = [id number] for Acacia Mary Lab Interpretation (test Abnormal code = 56195-1) [facility]-Glucose [id number] 17:50:35 Test Item Value Reference Range Interpretation Comments POC-Glucose Meter (test 145 mg/dL 70-110 H : TE STED AT [facility] code = 1538) [address] [facility], 770 30: Coach Tour Driver/Techni garth ID = [id number] for Mary Roger Lab Interpretation (test Abnormal code = 74135-6) [facility] HospitalPOCT-GLUCOSE [id number] 17:50:35 Test Item Value Reference Range Interpretation Comments POC-GLUCOSE METER 145 mg/dL 70-110 H : TESTED A T [facility] 6720 (BEAKER) (test code = [facility], 1538) [address]: Coach Tour Driver/Techni garth ID = [id number] for Sh talMary POCT-GLUCOSE [id number] 11:54:06 Test Item Value Reference Range Interpretation Comments POC-GLUCOSE METER 91 mg/dL 70-110 : TESTED A T [facility] 6720 (BEAKER) (test code = [facility], 1538) [address]: Coach Tour Driver/Techni garth ID = [id number] for Roger Mary POCT-GLUCOSE [id number] 08:54:56 Test Item Value Reference Range Interpretation Comments POC-GLUCOSE METER 103 mg/dL 70-110 : Notified RN/MD: TESTED (BEAKER) (test code AT [facility] [address] = 1538) [place], 770 30: Coach Tour Driver/Techni garth ID = [id number] for My jane ([facility] Traveler), Sandra chavez (CELLAVISION MANUAL DIFF)2022-08-17 07:19:52 [...] CONCENTRATION Adequate (CELLAVISION)(BEAKER) (test code = 3438) Coach Tour Driver ID - Katerina Dillard comments: Slide comments:CBC W/PLT COUNT & AUTO [id number] 07:19:51 Test Item Value Reference Range Interpretation [...] = 413) RAD, CHEST, 1 VIEW, NON [id number] 06:51:00Reason for exam:->post-opShould this be performed at the bedside?->Yes [facility] : 1955 Sex: MFINAL [...] surgical changes. Additional findings: None. Signed: Sondra Reinoso Verified Date/Time: 08/17/2022 06:51:58 BASIC METABOLIC PANEL [...] not appl icable for dialysis patien ts Coach Tour Driver ID - [id number] 04:24:19 Test Item Value Reference Range Interpretation Comments MAGNESIUM (ROXI) (test code = 2.0 mg/dL 1.6-2.6 627) Coach Tour Driver ID - marioPOCT-GLUCOSE [id number] 00:47:34 Test Item Value Reference Range Interpretation Comments POC-GLUCOSE METER 110 mg/dL 70-110 : TESTED A T [facility] 67[address] [facility] (test code = DIANA Motley [facility], 1538) [address]: Coach Tour Driver/Techni garth ID = [id number] for TRISHA CHILEL MS POCT-GLUCOSE [id number] 17:44:24 Test Item Value Reference Range Interpretation Comments POC-GLUCOSE METER 132 mg/dL 70-110 H : TESTED A T [facility] 67[address] ([facility]) (test code [facility], = 1538) [address]: Coach Tour Driver/Techni garth ID = [id number] for José Antonio Ledesma POCT-GLUCOSE [id number] 11:34:39 Test Item Value Reference Range Interpretation Comments POC-GLUCOSE METER 112 mg/dL 70-110 H : Notified RN/MD: (ROXI) (test code = TESTED AT [facility] 6720 1538) [facility], [address]: Coach Tour Driver/Techni garth ID = [id number] for Sondra Person RAD, CHEST, 1 VIEW, NON [id number] 06:55:00Reason for exam:->post-opShould this be performed at the bedside?->Yes [facility] : 1955 Sex: MFINAL REPORT [...] surgical changes. Additional findings: None. Signed: Sondra Reinosoepbryce Verified Date/Time: 08/16/2022 06:55:12 BASIC METABOLIC [id number] 04:17:17 Test Item Value Reference Range Interpretation [...] not appl icable for dialysis patien ts Coach Tour Driver ID - OLGA DAINLTEDGH1242-35-94 04:17:17 Test Item Value Reference Range Interpretation Comments MAGNESIUM (BEAKER) (test code = 1.7 mg/dL 1.6-2.6 627) Coach Tour Driver ID - OLGA WCALCIUM, [id number] 04:01:16 Test Item Value Reference Range Interpretation Comments CALCIUM IONIZED (BEAKER) (test 1.00 mmol/L 1.12-1.27 L code = 698) PH, BLOOD (BEAKER) (test code = 7.37 1810) Blood gas, [id number] 04:01:15 Test Item Value Reference Range Interpretation Comments pH, Arterial (test code 7.37 7.35-7.45 = 2744-1) pCO2, Arterial (test 47 See_Comment H [Autom ated message] code = 2019-01) The system [employer] generated this result transmit yisel reference range : 35 - 45 mm Hg. The reference range was not used to interpret this result as normal/abnormal . pO2, Arterial (test 196 See_Comment H [Automa yisel message] code = 2703-7) The system [employer] generated this result transmit yisel reference range [...] 50 Lab Interpretation Abnormal (test code = 74639-9) [facility] HospitalBlood gas, [id number] 04:01:15 Test Item Value Reference Range Interpretation Comments pH, Arterial (test code 7.37 7.35-7.45 = 2744-1) pCO2, Arterial (test 47 See_Comment H [Autom ated message] code = 2019-01) The system [employer] generated this result transmit yisel reference range : 35 - 45 mm Hg. The reference range was not used to interpret this result as normal/abnormal . pO2, Arterial (test 196 See_Comment H [Automa yisel message] code = 2703-7) The system [employer] generated this result transmit yisel reference range [...] 50 Lab Interpretation Abnormal (test code = 18329-9) [facility], [id number] 04:01:15 Test Item Value Reference Range Interpretation Comments pH, Arterial (test code 7.37 7.35-7.45 = 2744-1) pCO2, Arterial (test 47 See_Comment H [Autom ated message] code = 2019-01) The system [employer] generated this result transmit yisel reference range : 35 - 45 mm Hg. The reference range was not used to interpret this result as normal/abnormal . pO2, Arterial (test 196 See_Comment H [Automa yisel message] code = 2703-7) The system [employer] generated this result transmit yisel reference range [...] 50 Lab Interpretation Abnormal (test code = 13263-7) [facility] gas, [id number] 04:01:15 Test Item Value Reference Range Interpretation Comments pH, Arterial (test code 7.37 7.35-7.45 = 2744-1) pCO2, Arterial (test 47 See_Comment H [Autom ated message] code = 2019-) The system [employer] generated this result transmit yisel reference range : 35 - 45 mm Hg. The reference range was not used to interpret this result as normal/abnormal . pO2, Arterial (test 196 See_Comment H [Automa yisel message] code = 2703-7) The system [facility] generated this result transmit yisel reference range [...] 50 Lab Interpretation Abnormal (test code = 83378-5) [facility] HospitalBLOOD GAS, [id number] 04:01:15 Test Item Value Reference Range Interpretation [...] 1819) 50.0 CBC W/PLT COUNT & AUTO [id number] 03:51:26 Test Item Value Reference Range Interpretation [...] (BEAKER) (test code = 2801) HEMOGLOBIN AND [id number] 00:41:22 Test Item Value Reference Range Interpretation Comments HEMOGLOBIN (BEAKER) (test code = 8.3 GM/DL 13.7-17.5 L 410) HEMATOCRIT (BEAKER) (test code = 25.3 % 40.1-51.0 L 411) Coach Tour Driver ID - 6000POCT-GLUCOSE [id number] 00:39:56 Test Item Value Reference Range Interpretation Comments POC-GLUCOSE METER 175 mg/dL 70-110 H : [facility] (BE[facility]ER[facility] (test code = DIANA Motley [facility], 1538) [address]: Coach Tour Driver/Techni garth ID = [id number] for GA MS, SENORA [id number] 17:26:55 Test Item Value Reference Range Interpretation Comments MAGNESIUM (BEAKER) 1.8 mg/dL 1.6-2.6 Specimen slightly (test code = 627) hemolyzed Coach Tour Driver ID - [id number] 17:26:55 Test Item Value Reference Range Interpretation Comments PHOSPHORUS (BEAKER) 3.3 mg/dL 2.3-4.7 Specimen slightly (test code = 604) hemolyzed Coach Tour Driver ID - BSPOCT-GLUCOSE [id number] 16:58:26 Test Item Value Reference Range Interpretation Comments POC-GLUCOSE METER 168 mg/dL 70-110 H : TESTED A T [facility] 6720 (BEAKER) (test code = DIANA Motley [facility], 1538) [address]: Coach Tour Driver/Techni garth ID = [id number] for IB ARRA, ELSAMAR RAD, CHEST, 1 VIEW, NON [id number] 16:27:00Reason for exam:->post bilobectomyShould this be performed at the bedside?->Yes [facility] : 1955 Sex: MFINAL [...] Decreased right upper lobe opacity. Signed: Saul Bosseport Verified Date/Time: 08/15/2022 16:27:10 Reading Location: [facility] BASIC METABOLIC [id number] 16:04:40 Test Item Value Reference Range Interpretation [...] not appl icable for dialysis patien ts Coach Tour Driver ID - [id number]/[id number] 15:55:57 Test Item Value Reference Range Interpretation [...] 2.5-3.5 for patients with mechanical heart valves.CALCIUM, [id number] 15:39:52 Test Item Value Reference Range Interpretation [...] 0-0 (BEAKER) (test code = 413) Prepare [id number] 15:14:00 Test Item Value Reference Range Interpretation Comments CROSSMATCH (test code = COMPATIBLE 2264) Unit ABO (test code = A Pos 3853647) UNIT NUMBER (test code = [id number] 934-0) Status (test code = RETURNED FROM ISSUE 1273182) Blood Bank Product (test RED BLOOD CELLS code = 2263) PRODUCT CODE (test code = H3171F55 933-2) [facility] [id number] 15:14:00 Test Item Value Reference Range Interpretation Comments Unit ABO (test code = A Pos 2446519) UNIT NUMBER (test code = [id number] 934-0) Status (test code = RETURNED FROM ISSUE 15100820) Blood Bank Product (test FFP code = 2263) PRODUCT CODE (test code = W6238O82 933-2) [facility] [id number] 15:14:00 Test Item Value Reference Range Interpretation Comments CROSSMATCH (test code = COMPATIBLE 2264) Unit ABO (test code = A Pos 8450402) UNIT NUMBER (test code = [id number] 934-0) Status (test code = RETURNED FROM ISSUE 15100820) Blood Bank Product (test RED BLOOD CELLS code = 2263) PRODUCT CODE (test code = I0605Z00 933-2) [facility] [id number] 15:14:00 Test Item Value Reference Range Interpretation Comments Unit ABO (test code = A Pos 9128159) UNIT NUMBER (test code = [id number] 934-0) Status (test code = RETURNED FROM ISSUE 6575281) Blood Bank Product (test FFP code = 2263) PRODUCT CODE (test code = Y1142Y64 933-2) [facility] [id number] 15:14:00 Test Item Value Reference Range Interpretation Comments CROSSMATCH (test code = COMPATIBLE 2264) Unit ABO (test code = A Pos 5332753) UNIT NUMBER (test code = [id number] 934-0) Status (test code = RETURNED FROM ISSUE 15100820) Blood Bank Product (test RED BLOOD CELLS code = 2263) PRODUCT CODE (test code = F3049J24 933-2) [facility] [id number] 15:14:00 Test Item Value Reference Range Interpretation Comments Unit ABO (test code = A Pos 7019787) UNIT NUMBER (test code = [id number] 934-0) Status (test code = RETURNED FROM ISSUE 15100820) Blood Bank Product (test FFP code = 2263) PRODUCT CODE (test code = K0641A39 933-2) [facility] [id number] 15:14:00 Test Item Value Reference Range Interpretation Comments CROSSMATCH (test code = COMPATIBLE 4) Unit ABO (test code = A Pos 7948471) UNIT NUMBER (test code = [id number] 934-0) Status (test code = RETURNED FROM ISSUE 15100820) Blood Bank Product (test RED BLOOD CELLS code = 2263) PRODUCT CODE (test code = Z1243A89 933-2) [facility] [id number] 15:14:00 Test Item Value Reference Range Interpretation Comments Unit ABO (test code = A Pos 1828107) UNIT NUMBER (test code = [id number] 934-0) Status (test code = RETURNED FROM ISSUE 15100820) Blood Bank Product (test FFP code = 2263) PRODUCT CODE (test code = H2276J15 933-2) [facility] [id number] 14:22:14 Test Item Value Reference Range Interpretation Comments Sodium (test code = 2951-2) 134 meq/L 136-145 L Lab Interpretation (test code = Abnormal 83152-6) [facility] [id number] 14:22:14 Test Item Value Reference Range Interpretation Comments Sodium (test code = 2951-2) 134 meq/L 136-145 L Lab Interpretation (test code = Abnormal 05235-2) [facility] [id number] 14:22:14 Test Item Value Reference Range Interpretation Comments Sodium (test code = 2951-2) 134 meq/L 136-145 L Lab Interpretation (test code = Abnormal 10018-8) [facility] Na-Stat [id number] 14:22:14 Test Item Value Reference Range Interpretation Comments Sodium (test code = 2951-2) 134 meq/L 136-145 L Lab Interpretation (test code = Abnormal 44956-0) [facility] NA-STAT [id number] 14:22:14 Test Item Value Reference Range Interpretation Comments SODIUM (BEAKER) (test code = 381) 134 meq/L 136-145 L HGB/HCT (H&H)-Stat [id number] 14:22:08 Test Item Value Reference Range Interpretation Comments Hemoglobin (test code = 9.3 See_Comment L [Au tomated message] 718-7) The system [employer] generated this result transmitted ref erence range: 13.0 - 1 6.8 GM/DL. The refe rence range was not u sed to interpret this result as normal/abnor mal. Hematocrit (test code = 27.0 % 40.0-50.0 L 4544-3) Lab Interpretation (test Abnormal code = 32323-6) [facility] HospitalH[facility] ([facility]&H)-Stat [id number] 14:22:08 Test Item Value Reference Range Interpretation Comments Hemoglobin (test code = 9.3 See_Comment L [Au tomated message] 718-7) The system [employer] generated this result transmitted ref erence range: 13.0 - 1 6.8 GM/DL. The refe rence range was not u sed to interpret this result as normal/abnor mal. Hematocrit (test code = 27.0 % 40.0-50.0 L 4544-3) Lab Interpretation (test Abnormal code = 63161-0) [facility] HospitalH[facility] ([facility]&H)-Stat [id number] 14:22:08 Test Item Value Reference Range Interpretation Comments Hemoglobin (test code = 9.3 See_Comment L [Au tomated message] 718-7) The system [employer] generated this result transmitted ref erence range: 13.0 - 1 6.8 GM/DL. The refe rence range was not u sed to interpret this result as normal/abnor mal. Hematocrit (test code = 27.0 % 40.0-50.0 L 4544-3) Lab Interpretation (test Abnormal code = 02149-4) [facility] HospitalH[facility] ([facility]&H)-Stat [id number] 14:22:08 Test Item Value Reference Range Interpretation Comments Hemoglobin (test code = 9.3 See_Comment L [Au tomated message] 718-7) The system [employer] generated this result transmitted ref erence range: 13.0 - 1 6.8 GM/DL. The refe rence range was not u sed to interpret this result as normal/abnor mal. Hematocrit (test code = 27.0 % 40.0-50.0 L 4544-3) Lab Interpretation (test Abnormal code = 49250-2) [facility] HospitalH[facility] ([facility]&H) - STAT [id number] 14:22:08 Test Item Value Reference Range Interpretation Comments HEMOGLOBIN (BEAKER) (test code = 9.3 GM/DL 13.0-16.8 L 410) HEMATOCRIT (BEAKER) (test code = 27.0 % 40.0-50.0 L 411) BLOOD GAS, [id number] 14:22:07 Test Item Value Reference Range Interpretation [...] (BEAKER) (test code = 1819) 90.0 CALCIUM, [id number] 14:21:15 Test Item Value Reference Range Interpretation Comments CALCIUM IONIZED (BEAKER) (test 1.22 mmol/L 1.12-1.27 code = 698) PH, BLOOD (BEAKER) (test code = 7.36 1810) Potassium-Stat [id number] 14:20:58 Test Item Value Reference Range Interpretation Comments Potassium (test code = 2823-3) 4.2 meq/L 3.6-5.5 Lab Interpretation (test code = Normal 70697-6) [facility] HospitalPotassium-Stat [id number] 14:20:58 Test Item Value Reference Range Interpretation Comments Potassium (test code = 2823-3) 4.2 meq/L 3.6-5.5 Lab Interpretation (test code = Normal 71101-3) [facility] HospitalPotassium-Stat [id number] 14:20:58 Test Item Value Reference Range Interpretation Comments Potassium (test code = 2823-3) 4.2 meq/L 3.6-5.5 Lab Interpretation (test code = Normal 03281-1) [facility] HospitalPotassium-Stat [id number] 14:20:58 Test Item Value Reference Range Interpretation Comments Potassium (test code = 2823-3) 4.2 meq/L 3.6-5.5 Lab Interpretation (test code = Normal 94537-6) [facility] HospitalPOTASSIUM-STAT [id number] 14:20:58 Test Item Value Reference Range Interpretation Comments POTASSIUM (BEAKER) (test code = 4.2 meq/L 3.6-5.5 379) Glucose-Stat [id number] 14:20:53 Test Item Value Reference Range Interpretation Comments Glucose (test code = 2345-7) 174 mg/dL 70-110 H Lab Interpretation (test code = Abnormal 21480-9) [facility] HospitalGlucose-Stat [id number] 14:20:53 Test Item Value Reference Range Interpretation Comments Glucose (test code = 2345-7) 174 mg/dL 70-110 H Lab Interpretation (test code = Abnormal 06727-6) [facility] HospitalGlucose-Stat [id number] 14:20:53 Test Item Value Reference Range Interpretation Comments Glucose (test code = 2345-7) 174 mg/dL 70-110 H Lab Interpretation (test code = Abnormal 98571-2) [facility] HospitalGlucose-Stat [id number] 14:20:53 Test Item Value Reference Range Interpretation Comments Glucose (test code = 2345-7) 174 mg/dL 70-110 H Lab Interpretation (test code = Abnormal 75227-6) [facility] HospitalGLUCOSE-STAT [id number] 14:20:53 Test Item Value Reference Range Interpretation Comments GLUCOSE RANDOM (BEAKER) (test code 174 mg/dL 70-110 H = 652) Lactic Acid, [id number] 13:38:20 Test Item Value Reference Range Interpretation Comments Lactate, Art (test code = 1.6 mmol/L 0.5-2.2 2874) DONAVON (test code = DONAVON) Coach Tour Driver ID - DB Lab Interpretation (test Normal code = 16583-0) [facility] HospitalLactic Acid, [id number] 13:38:20 Test Item Value Reference Range Interpretation Comments Lactate, Art (test code = 1.6 mmol/L 0.5-2.2 2874) DONAVON (test code = DONAVON) Coach Tour Driver ID - DB Lab Interpretation (test Normal code = 42005-0) [facility] HospitalLactic Acid, [id number] 13:38:20 Test Item Value Reference Range Interpretation Comments Lactate, Art (test code = 1.6 mmol/L 0.5-2.2 2874) DONAVON (test code = DONAVON) Coach Tour Driver ID - DB Lab Interpretation (test Normal code = 54564-8) [facility] HospitalLactic Acid, [id number] 13:38:20 Test Item Value Reference Range Interpretation Comments Lactate, Art (test code = 1.6 mmol/L 0.5-2.2 2874) DONAVON (test code = DONAVON) Coach Tour Driver ID - DB Lab Interpretation (test Normal code = 25280-9) [facility] [facility] HospitalLACT[facility]ID, [id number] 13:38:20 Test Item Value Reference Range Interpretation Comments LACTATE BLOOD ARTERIAL (2) 1.6 mmol/L 0.5-2.2 (BEAKER) (test code = 2874) Coach Tour Driver ID - DBSODIUM NA-STAT [id number] 13:29:13 Test Item Value Reference Range Interpretation Comments SODIUM (BEAKER) (test code = 381) 133 meq/L 136-145 L BLOOD GAS, [id number] 13:29:07 Test Item Value Reference Range Interpretation [...] 21-29 = 388) BASE EXCESS ARTERIAL (BEAKER) -1.5 mmol/L -2.0-3.0 (test code = 387) PATIENT TEMPERATURE (BEAKER) 37.0 (test code = 1818) HGB/HCT (H&H) - STAT [id number] 13:29:07 Test Item Value Reference Range Interpretation Comments HEMOGLOBIN (BEAKER) (test code = 9.6 GM/DL 13.0-16.8 L 410) HEMATOCRIT (BEAKER) (test code = 28.0 % 40.0-50.0 L 411) CALCIUM, [id number] 13:28:32 Test Item Value Reference Range Interpretation Comments CALCIUM IONIZED (BEAKER) (test 1.18 mmol/L 1.12-1.27 code = 698) PH, BLOOD (BEAKER) (test code = 7.37 1810) POTASSIUM-STAT [id number] 13:23:59 Test Item Value Reference Range Interpretation Comments POTASSIUM (BEAKER) (test code = 4.2 meq/L 3.6-5.5 379) GLUCOSE-STAT [id number] 13:23:53 Test Item Value Reference Range Interpretation Comments GLUCOSE RANDOM (BEAKER) (test code 185 mg/dL 70-110 H = 652) SODIUM NA-STAT [id number] 12:10:32 Test Item Value Reference Range Interpretation Comments SODIUM (BEAKER) (test code = 381) 133 meq/L 136-145 L HGB/HCT (H&H) - STAT [id number] 12:10:32 Test Item Value Reference Range Interpretation Comments HEMOGLOBIN (BEAKER) (test code = 10.7 GM/DL 13.0-16.8 L 410) HEMATOCRIT (BEAKER) (test code = 31.0 % 40.0-50.0 L 411) BLOOD GAS, [id number] 12:10:32 Test Item Value Reference Range Interpretation [...] 21-29 = 388) BASE EXCESS ARTERIAL (BEAKER) -1.1 mmol/L -2.0-3.0 (test code = 387) PATIENT TEMPERATURE (BEAKER) 37.0 (test code = 1818) FIO2 (BEAKER) (test code = 1819) 100.0 CALCIUM, [id number] 12:10:31 Test Item Value Reference Range Interpretation Comments CALCIUM IONIZED (BEAKER) (test 1.12 mmol/L 1.12-1.27 code = 698) PH, BLOOD (BEAKER) (test code = 7.37 1810) GLUCOSE-STAT [id number] 12:10:10 Test Item Value Reference Range Interpretation Comments GLUCOSE RANDOM (BEAKER) (test code 172 mg/dL 70-110 H = 652) POTASSIUM-STAT [id number] 12:10:10 Test Item Value Reference Range Interpretation Comments POTASSIUM (BEAKER) (test code = 4.5 meq/L 3.6-5.5 379) SODIUM NA-STAT [id number] 11:04:37 Test Item Value Reference Range Interpretation Comments SODIUM (BEAKER) (test code = 381) 133 meq/L 136-145 L HGB/HCT (H&H) - STAT [id number] 11:04:37 Test Item Value Reference Range Interpretation Comments HEMOGLOBIN (BEAKER) (test code = 10.9 GM/DL 13.0-16.8 L 410) HEMATOCRIT (BEAKER) (test code = 32.0 % 40.0-50.0 L 411) CALCIUM, [id number] 11:04:36 Test Item Value Reference Range Interpretation Comments CALCIUM IONIZED (BEAKER) (test 1.08 mmol/L 1.12-1.27 L code = 698) PH, BLOOD (BEAKER) (test code = 7.31 1810) BLOOD GAS, [id number] 11:04:36 Test Item Value Reference Range Interpretation [...] (BEAKER) (test code = 1819) 100.0 GLUCOSE-STAT [id number] 11:04:09 Test Item Value Reference Range Interpretation Comments GLUCOSE RANDOM (BEAKER) (test code 167 mg/dL 70-110 H = 652) POTASSIUM-STAT [id number] 11:04:09 Test Item Value Reference Range Interpretation Comments POTASSIUM (BEAKER) (test code = 4.6 meq/L 3.6-5.5 379) CALCIUM, [id number] 10:07:26 Test Item Value Reference Range Interpretation Comments CALCIUM IONIZED (BEAKER) (test 1.11 mmol/L 1.12-1.27 L code = 698) PH, BLOOD (BEAKER) (test code = 7.32 1810) BLOOD GAS, [id number] 10:07:25 Test Item Value Reference Range Interpretation [...] = 1819) 90.0 HGB/HCT (H&H) - STAT [id number] 10:07:19 Test Item Value Reference Range Interpretation Comments HEMOGLOBIN (BEAKER) (test code = 12.1 GM/DL 13.0-16.8 L 410) HEMATOCRIT (BEAKER) (test code = 36.0 % 40.0-50.0 L 411) SODIUM NA-STAT [id number] 10:06:27 Test Item Value Reference Range Interpretation Comments SODIUM (BEAKER) (test code = 381) 136 meq/L 136-145 POTASSIUM-STAT [id number] 10:06:27 Test Item Value Reference Range Interpretation Comments POTASSIUM (BEAKER) (test code = 3.9 meq/L 3.6-5.5 379) GLUCOSE-STAT [id number] 10:06:26 Test Item Value Reference Range Interpretation Comments GLUCOSE RANDOM (BEAKER) (test code 152 mg/dL 70-110 H = 652) Prepare [id number] 09:03:00 Test Item Value Reference Range Interpretation Comments CROSSMATCH (test code = 2264) COMPATIBLE Unit ABO (test code = A Pos 3194799) UNIT NUMBER (test code = [id number] 934-0) Status (test code = 2703916) ISSUED Blood Bank Product (test code RED BLOOD CELLS = 2263) PRODUCT CODE (test code = X2209E73 933-2) [facility] [id number] 09:03:00 Test Item Value Reference Range Interpretation Comments Unit ABO (test code = 6806890) A Pos UNIT NUMBER (test code = 934-0) [id number] Status (test code = 6773568) ISSUED Blood Bank Product (test code = FFP 2263) PRODUCT CODE (test code = E9272I96 933-2) [facility] HospitalBAS[facility]OLIC [id number] 04:23:33 Test Item Value Reference Range Interpretation [...] De scription 1092) sq m Result G1 Elela l or high >=90 G2 Mildly decreased 60-89 G3a Mildl y to moderately 45-5 9 G3b Moderately to s everely 30-44 G4 Sever ly decreased 15-29 G5 Kidney failure <15Repo rted eGFR is based on the CKD-EPI 2020 equation t hat does not use a race coefficientEsti mated GFR is not as accur ate as Creatinine Shagufta goldsmith in predicting glom erular filtration rate . Estimated GFR is not appl icable for dialysis patien ts Coach Tour Driver ID - [id number] 04:23:33 Test Item Value Reference Range Interpretation Comments MAGNESIUM (BEAKER) (test code = 2.2 mg/dL 1.6-2.6 627) Coach Tour Driver ID - [id number] 04:23:33 Test Item Value Reference Range Interpretation Comments PHOSPHORUS (BEAKER) (test code = 3.1 mg/dL 2.3-4.7 604) Coach Tour Driver ID - DBSARS-CoV2/RT-PCR (Asymptomatic ONLY)2022-08-15 03:15:17 Test Item Value Reference Interpretation Comments Range SARS-COV2/RT-PCR Negative Negative The SARS-Co V-2 (test code = target nucleic 89063-2) acids are not detected in thi s [...] om SARS-CoV-2 in a nasopharyngeal swab specimen colle yisel from individual s suspected of COVID-19 [...] revoked sooner. Fact Sheet for Healthcare Providers: https://www.[employer] [place]/Documents/Xp ert%20Xpress%20SAR S%20CoV-2/Fact%20S heets/302-3802%20S ARS-COV-2%20HEALTH CARE%20PROVIDERS%2 0FACT%20SHEET.pdf Fact Sheet for Healthcare Patients: https://www.[employer] [place]/Documents/Xp ert%20Xpress%20SAR S%20CoV-2/Fact%20S heets/302-3801%20S ARS-COV-2%20PATIEN T%20FACT%20SHEET.p df Lab Interpretation Normal (test code = 00489-8) [facility] 03:15:17 Test Item Value Reference Interpretation Comments Range SARS-COV2/RT-PCR Negative Negative The SARS-Co V-2 (test code = target nucleic 86457-7) acids are not detected in thi s [...] revoked sooner. Fact Sheet for Healthcare Providers: https://www.[employer] [place]/Documents/Xp ert%20Xpress%20SAR S%20CoV-2/Fact%20S heets/302-3802%20S ARS-COV-2%20HEALTH CARE%20PROVIDERS%2 0FACT%20SHEET.pdf Fact Sheet for Healthcare Patients: https://www.[employer] [place]/Documents/Xp ert%20Xpress%20SAR S%20CoV-2/Fact%20S heets/302-3801%20S ARS-COV-2%20PATIEN T%20FACT%20SHEET.p df Lab Interpretation Normal (test code = 54420-5) [facility]2022-08-15 03:15:17 Test Item Value Reference Interpretation Comments Range SARS-COV2/RT-PCR Negative Negative The SARS-Co V-2 (test code = target nucleic 93306-8) acids are not detected in thi s [...] om SARS-CoV-2 in a nasopharyngeal swab specimen colle yisel from individual s suspected of COVID-19 [...] revoked sooner. Fact Sheet for Healthcare Providers: https://www.[employer] [place]/Documents/Xp ert%20Xpress%20SAR S%20CoV-2/Fact%20S heets/302-3802%20S ARS-COV-2%20HEALTH CARE%20PROVIDERS%2 0FACT%20SHEET.pdf Fact Sheet for Healthcare Patients: https://www.[employer] [place]/Documents/Xp ert%20Xpress%20SAR S%20CoV-2/Fact%20S heets/302-3801%20S ARS-COV-2%20PATIEN T%20FACT%20SHEET.p df Lab Interpretation Normal (test code = 69717-9) [facility]22-08-15 03:15:17 Test Item Value Reference Interpretation Comments Range SARS-COV2/RT-PCR Negative Negative The SARS-Co V-2 (test code = target nucleic 64353-6) acids are not detected in thi s [...] revoked sooner. Fact Sheet for Healthcare Providers: https://www.[employer] [place]/Documents/Xp ert%20Xpress%20SAR S%20CoV-2/Fact%20S heets/302-3802%20S ARS-COV-2%20HEALTH CARE%20PROVIDERS%2 0FACT%20SHEET.pdf Fact Sheet for Healthcare Patients: https://www[employer]/Documents/Xp ert%20Xpress%20SAR S%20CoV-2/Fact%20S heets/302-3801%20S ARS-COV-2%20PATIEN T%20FACT%20SHEET.p df Lab Interpretation Normal (test code = 07588-3) [facility]2022-08-15 03:15:17 Test Item Value Reference Interpretation Comments Range SARS-COV2/RT-PCR Negative Negative The SARS-Co V-2 (test code = target nucleic 48088-2) acids are not detected in thi s [...] revoked sooner. Fact Sheet for Healthcare Providers: https://www.[employer] [place]/Documents/Xp ert%20Xpress%20SAR S%20CoV-2/Fact%20S heets/302-3802%20S ARS-COV-2%20HEALTH CARE%20PROVIDERS%2 0FACT%20SHEET.pdf Fact Sheet for Healthcare Patients: https://wwwLight[employer]/Documents/Xp ert%20Xpress%20SAR S%20CoV-2/Fact%20S heets/302-3801%20S ARS-COV-2%20PATIEN T%20FACT%20SHEET.p df Lab Interpretation Normal (test code = 72541-3) [facility])2022-08-15 03:15:17 Test Item Value Reference Range Interpretation Comments SARS-COV2/RT-PCR Negative Negative The SARS-Co V-2 target (test code = nucleic acids a re not 4746095) detected in thi s specimen. Negative result s do not preclude SARS-C oV-2 infection and s hould not be used as the yared e basis for patient managem ent decisions. Nega tive results must be combine d with clinical observ ations, patient history , and epidemiological information. A false negativ e result may occur if a spec imen is improperly alida ected, transported or handled. This SARS CoV-2 [...] revoked sooner. Fact Sheet for Healthcare Providers: https://www.[employer]/Documents/Xpert%20Xpress%20SARS%20CoV-2/Fact%20Sheets/3023802%96DGCJ-AHB-8%20 HEALTHCARE%20PROVIDERS%20FACT%20SHEET.pdf Fact Sheet for Healthcare Patients: https://www.[employer]/Documents/Xpert%20Xp ress%20SARS%20CoV-2/Fact%20Sheets/3023801%35UCSR-BXF-8%20PATIENT%20FACT%20SHEET .pdfCBC W/PLT COUNT & AUTO [id number] 02:34:00 Test Item Value Reference Range Interpretation [...] (test code = 2801) CT, CHEST, WITH [id number] 00:30:00poorly differentiated non-small cell carcinoma of the right lungUnlisted Reason for Exam - Click Yesand Enter Reason Below->NoH[facility]D [facility] : 1955 Sex: MFINAL REPORT CT, CHEST, WITH CONTRAST INDICATION: Non-small cell lung cancer, staging COMPARISON: None TECHNIQUE: CT, CHEST, WITH CONTRAST. This exam was performed according to our departmental dose optimization program which includes automated exposure control, adjustment of the mA and/or kV according to patient size and/or use of iterative reconstruction technique. FINDINGS: Lungs: A 10 x 6.5 x 4 cm mass in the right upper lobe along the minor fissure extends from the pleural effusion and a hilum, broadly abutting the pleura and minimally invading the chest wall between the third and fourth ribs and abutting the second, third, and fourth ribs. Subpleural reticulations bilaterally, greatest in the left upper lobe and subpleural cystic changes, borderline honeycombing, in the right lower lobe. Significant respiratory motion artifact. A few groundglass nodules in the right upper lobe measuring up to 8 mmCentral airways: Patent.Pleura: Trace right pleural effusion. Posterior left pleural thickening. Pleural parenchymal scarring at the left lung apex.Lymph nodes: A suspicious conglomerate of right paraesophageal/subcarinal lymph nodes measuring 5 x 1.7 cm. A suspicious right hilar node measures 1.3 x 2.0 cm. A few nonspecific subcentimeter short axis mediastinal lymph nodes including a 0.8 x 1.4 similar right upper paratracheal lymph nodeCardiovascular: UnremarkableThyroid gland: Visualized portion unremarkableEsophagus: UnremarkableIncluded upper abdomen: Unremarkable.Chest wall: As above.Bones: Unremarkable. IMPRESSION: 1.A 10 cm right upper lobe solid pulmonary mass, broadlyabuts the pleura, appears to minimally invade the right chest wall, with suspicious hilar and mediastinal nodes as above. 2. 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 3.A few groundglass nodules in the right upper lobe measuring up to 8 mm are nonspecific, attention on future restaging exams Signed: Dudley Asher Verified Date/Time: 08/15/2022 00:30:08 BASIC METABOLIC [id number] 21:33:06 Test Item Value Reference Range Interpretation [...] eGFR (test code = mL/min/1.73 values Stage D escription 1092) sq m Result G1 Leela l [...] not appl icable for dialysis patien ts Coach Tour Driver ID - BSCOMPREHENSIVE METABOLIC [id number] 15:30:39 Test Item Value Reference Range Interpretation [...] not appl icable for dialysis patien ts Coach Tour Driver ID - ADMINPT/[id number] 14:37:48 Test Item Value Reference Range Interpretation [...] mechanical heart valves.CBC W/PLT COUNT & AUTO [id number] 14:32:06 Test Item Value Reference Range Interpretation [...] = 2801) PULMONARY QUANT DIFFERENTIAL FUNCT WITH [id number] 12:52:00Reason for Exam:->c34.11[facility] : 1955 Sex: MFINAL REPORT PROCEDURE: perfusion LUNG SCAN w/differential function CPT CODE: 74301 INDICATION: 67-year-old male, lobectomy versus pneumonectomy. TECHNIQUE: [...] BY EBUS 2022-07-14 15:25:24Medical Cytology Report Case: [id number] Authorizing Provider: Izabela Galvan Jr., Collected: 07/13/2022 02:09 PM Ordering Location: [facility] Received: 07/13/2022 02:42 PM PERIOPERATIVESERVICES Pathologist: Lopez Reyna MD Specimen: Lymph Node, Subcarinal, Station 7 LYMPH NODE, SUBC ARINAL STATION 7, EBUS FNA (DIRECT SEMARS AND CELL BLOCK): - NEGATIVE FOR EPITHELIAL MALIGNANCY. - BENIGN FRAGMENTS OF ANTHRACOTIC LYMPH NODE TISSUE. Signing Pathologist Direct Phone Line: [phone] signed by Lopez Reyna MD on 07/14/2022 at 3:25 PMPlease also see cytopathology cases: [id number], [id number], [id number], [id number] y.o M w/ h/o arthritis, anxiety, depression, [...] TISSUE, NO CARCINOMA SEEN(REPORTED BY PATHOLOGIST LOPEZ REYNA M.D. 1:40PM)Performed.[facility], Department of Pathology, [address] [place] [address], [facility], Department of Pathology, [address] [place] [address], DdvapzCommunity [facility], Department of Pathology, [address] [place] [address], Nonp Needle Aspiration by [id number] 13:35:13 Test Item Value Reference Range Interpretation Comments Case Report (test code = Medical Cytology 104) Report Case: [id number] Authorizing Provider: Izabela Galvan Jr., Collected: 07/13/2022 02:10 PM Ordering Location: [facility] Received: 07/13/2022 02:43 PM PERIOPERATIVE SERVICES Pathologist: Lopez Reyna MD Specimen: Lymph Node, Interlobar, Left, Station 11L DIAGNOSIS (test code = h7jygTJvLQCqd5laHSVtp 3220) GFuZzEwMzNcZnRuYmpcdW MxIHtccnRmMVxlcGljOTY gXxiatcTfSZTrtQLqQ3Qp vinkONahHR1mQV9wtIwub CWmySQjMMEyXjBqh8gyb6 04eGQfa1woHVUKrhzufEk 9dWogX46vf5O7SvwuH57u tZDcDXT0PTMsGVEqsNFiE YMoSPT8HLYjlDZvC5vkYA TxMX6emplfFMfnRNueVCD sjMG8LDGfeSWqO1AzSJMn ZBjlUPPglhe1AaRlQd2ec GVyeTcyMFxwYXJkXHBsYW luXGZzMjAgTFlNUEggTk9 ERSwgTEVGVCBJTlRFUkxP QjJNLLRDDOTBT85lJMUFS CBFQlVTIEZOQSAoRElSRU KOGWUPNZMARfZVDtWnL3J SKYFTWW0XFib9CRVefaKj UCBbYD1VX8JDVXROVKBPE iTKPBbFITJYNMTLSD6HFV eGPcMYV1lyXYNcxvGpUZH tIEJFTklHTiBBTlRIUkFD K9BQWqFFDE7UIGWMJ4BWA BUHVKyRHR2LQp3sKQZwee 32EPT7MyZua9Q4WLE0LSA cODQva6hpLINuyTOwAbRu MzNcZnRuYmpcdWMxXGRlZ lKwt6pgj112tIWih1zrJB UdVgF2gDUuYPMjfTLfO77 9WETeXOprf9vze3KdCPXl xWSbq2Q9UIASoqjjzIq7a SoaY27aj0P3KhmuU7rbUZ QnYHAgU1WyDI4mPBDvZwi 8KXF3WRS1ZWRlUMIpT7Nm WQ2zLLPupKVsMLz1s0nwp VshWDBnRTK8m0ejWKrqdd FfGD2zvn4duAw0h9rahdR mYSPiNFAumFLDEVGuN6Gl cZctTm4dvLy9dTtvOyrpJ NX4Mbe5DM0arv07vei3uU gaMGCocswsYyR9WBuiMHH prbogVXg3YYeuMPCimKP5 OMMxbWFoA7RpHZQmMA0fo rs1GBL6BYfvJNJtGjZ3ML ExtKZpFPVylBlxMEqwu34 6CWS4VyKjFW2qI2Pgw4W2 oI2mjTKbYCQtnVAdLvQwE ZEjvb1krHTfSYltm9ClYM K9fcQ2zNWmmGXeQAEdSxT 1VDapJW7wng54WIHvLUG5 vk6jnLDzoClddmCspFQfI YcvK9JbAUEqa508OHZvD6 FdTCHyf3Y5hgMfAkPpBYA ccWR0dsT8OMRvHY8tzyjv m0bnFBexBMtfOUZlkdN6n lD5XEVntATjK7VwzU9kZT KdMZ1yofrpg5mkSUH7IRt eIODwADV7WkAjBFIyq5Ty yuc3PnAht2MfxLPkXZnlR 11ja284QDZkahPfI4oxyC FpblxwbGFpblxmMFxmczI 0XHFsXGxhbmcxMDMzXGhp E4btIrQqCTOsdYebWLzel 2NoXGYxXGZzMjJcdGFiXH TuOpx6NJApcTLqAYHmBfK uT1kpcitdLrYTPEOql4tl F0pejPFYgODuW1FyGMpcd iWcDGxyIAcgHcHhQEh1XI 90YmEgBDEthp21 COMMENT (test code = p4bgtDKyKNNiaHW4FmThB 3359) SFqf6pnq6XuiVUosXIhGZ aiqTGfeuIdrl15aLL2tB5 5AX4kCEUsBeF5XLKrjwT2 Iym3PVKkNTWvqBFeM598k 8rdi9rwwwAzvYL1jIupAE CjfiutXjE9IOyvQSTheco tHOp0JPkhUBUzvOZ2HNMv tAWiO5GxIHSlNP0ukur7Q OY6TYqcCZLfDmU8WDUdqA UoUAInvAeiLSwtb414GNI 1UuReGESsjjElvAdodN1c TgNiGTWLhHHim3OwHMbtt eNtFHKuJ4h1u4TxjKlkbE 9neSBjYXNlczogQzIzLTA iAdK2EBCYKvQoUPMsQeEb cGFyfQ== CPT Code(s) (test code = x1jmjHYtPHDbfNB9HcZzO 3357) TUzp3kfz9MeyZDwdTJfDW hvbEDdhwImyr02xSF1pB0 1CK5iCAUyWgA3YYHengL0 Rei8XPHaJFStuCUkP731z 1mop5uvrzZzwWI1qKstXD ZlyxsmMjB7XZagFJTxuju yDKe5AJppNZBkiYD6DWVx nXSsR7AaRNAmVD5xzlm8N SA8RPonOZOaAqB3NYYiiR AsKARzkLmlGZjej400GID 2JxPoBQNwweBndHjduQ3i LwNaKSB2WMB6SenvIGyqD oWlYXq4EdZ9MNJktf6= CLINICAL DATA (test code e1touSDtSWGjkMO7StJqS = 3356) CZuq8rfs0DbaUUvsVBoKE icmDYvwtVvts27oXO2uL3 4QR4zCIZkZkI0JFLshcT5 Tta2CSHjMARudVEbT467e 0ngz6qlpcQlrUO3tAhaNC MrtjibWbT2LXejUBMorrh hEOn2ENtoFNPjePS1MOLt zMVgQ5SkJNKbJR8ccmx7Q WX3HAesFOBuHxY4YFXnjO FfFCHkyQkjAFilq096EVR 3BmNnQCUhlsCxdXeduG1q VhUrDXE2FHH6Gv0fSDK7W cAbE71yNTK9iNZwiPqkRS BttwalARS1HAQaCBMoHES unJ6oEZSPB8EPCG2vDSXm xgJ2hY3gwCPjmD7cDSVwL nIaBS4uS1AbF4sxv3FqUR DDJDDyxC3mZE1ey3DvdYM ms1AejV4xQWVsUINjiT6m CD2cLTZ7MF64DONONWz9e COsHCGtgR6cv4uyc5GhIf DLNAe5nyzsqe5tvFwoQMA bTPXtONeyqcVpl6UsiPu7 NLWsm1JdrZ7uedy5IKPqS bEttfZksEsrkTQxZH7pbd 1zbWFsbCBjZWxsIGNhcmN zfr5tON2gqBFgjC== SPECIMEN SOURCE (test h5pldLPwVJKojMS5LqKeP code = 3377) XEnh8knb5GfjTBdxCKiGG fjiAQmijHrdu66eFN4kT1 2CI1vVOGnUnK9RNGyorX6 Oxe9CVGfXSDkzJIpJ754c 7rln0xdtvGwtKA4dUxbVZ TduoqaVvS7VVqnKQTqthh qDHt6LCzpWTPheNI1UHJq xZEpM6VxMVDeTF5epks1O TT6KSqnTSAqOdY3BVUesJ XsCYDgyLpwMZhyz275RYV 5LwLoDSOqrgBfnSqhpU5n SgMuCWWFQV0GOVZPQ8TRR CBJTlRFUkxPQkFSLCBMRU FETFDINBCEWI3KCOKfBAC FQlVTIEZOQVxwYXJ9 GROSS DESCRIPTION (test o3eqaEFtZWZgvIVDOIXaW code = [id number]) 2yrouJxAALcxGWmE0Saep quYOrcJP9rSD5mlMqkvCJ awEOgDI3JFUImRrZgVPOh cGVydzEyMjQwXHBhcGVya TW6QBKvIU2pxqswGYlfBU oeGRExotQ9EBBpkOBmU0R wTBGeDD5ycmrfOXD4OJsz zE9dtlBRLkaqPw0pfJZce HtcZjFcZmNoYXJzZXQwXG ZlrWjtAGArNMa1zI7XJzk fAXD5ZAXYMhntRVHkIT6V e4osVZKpyOFaQZK5BMjua MPoXYHkKLYbWAh3HAGgDN skuVSxQL6qrVppZxcddOo xz7XyzIPsKAplYKIoCOWi MOosCSNlJY3ZOyYcGTdgM cr3CuByVHl7AJi7CP4BEo LwMNSuImO7Lsa3KdWkCNd 4TMfpWW1STRE4DPi9KQe0 IJR1ALYqSJZvLDRfQbBsN GYgQXJpYWwgXFxmbCBcXG 7lsLhooJSfdiLWSdOIzH4 dzBHYo2LlBLVDvlSuowor LdDeDWGZZUQ8MGNQpGT9z R6qOBYsRV0pvUGeUJ7TNU JpwUJHCVE3PP4uKTGZUbb rxWLkRIPypAilQXvjhN6n PK0EKLr3kqByMGHdGbAbQ dXcIBu9JAMtCuuktGawSV cuHNN5cE6qpETbHISiWMB eheVzDkLxbXReY7Hey96w KWTtl1keXWIkUsQybtKmG GAvNYBcLTjbEOOcr4PiEJ eWCegjCQIzvQtdWlojV1q wvSygE1OiXEmjLFUaly0l zMejKAE8RUY7EsRtLD8kO DAyLzAyLzIwMjMpICANCl xwbGFpblxlcGljTmVzdER iQvWmfEhwdS00IYYitYTj LGQ6BH1kRBVaffnlVDAfH ZPrJES0QEprwS59wEDzLA TtKTDsgKHoqP3BDKEkLLT 3WSykpZ30xTJvGX7EOPHh FQO1VQZliEVoCOF4NG3cv Q0KfQ== INTRAPROCEDURAL ADEQUACY c6cnzAQhDZNhiNJ3TeQoJ (test code = 3370) LNow4mqo0VzeZLhyLYvFL owmSPygvEawo92fYO1cF3 8RU8jPEAwSxB7XMHudqU9 Ioq5ASDsGISlhMDrE525m 3xsv2ldryOelPK8cAmpGL AmowgcXjE6NBorIOPcvwx sXZz2LMtgMHTtfBB7IAFd rAEeX1HjXWJqKJ0ahnw5R FY2SSsjQAOvVzN1DFPnzY GeLMKyrVonOGvnx914ESW 1EiXlRPNnqjZohWrklD5e GbVoPFUOVYDJET7EBVFvC TPKQP1EGXFLL9XKVpcbQX AdNOIXI2ZtZOBUWIUNQWC cGAMFZD7BVGTYTEEWSBVZ WZmEDV5UDEICJEUWDBHWS iEwGU1CCJTzSyNwEhOjMi MpXHBhcn0= MICROSCOPIC DESCRIPTION g2eucTTwSGKrvKQ8WaOtK (test code = 3371) VZpm7ebx2XktTTyzXOtOC wrjMWzlxTcfk66sWM8vX9 4RS6lPPAnSoF0BDSsnkI2 Pan4XFXsDSAdxWGoV230w 9mzr7rlefMkvMR3tEwdOO ApgfhlZhH4YEtyYUWkjoa uFUz6BPxnWSRfuYQ7MACu aXKeZ6IoEXWrAV1qzrc6I SO4YCfnZYFuScT7XRDsmV GpBVUsxTviELcoj981JNK 7JoCdHLTcjeYrgCpkgI4d ZpRkQZZEIVZar4MyHILdO HBhclxwYXJkXHBhcn0= Gross assessment was [facility] performed at (test code [facility], = 2777) Department of Pathology, [address] [place] [id number], Technical component was [facility] performed at (test code [facility], = 2778) Department of Pathology, [address] [place] [id number], Professional component [facility] was performed at (test [facility], code = 2779) Department of Pathology, [address] [place] [id number], [facility] by [id number] 13:35:13 Test Item Value Reference Range Interpretation Comments Case Report (test code = Medical Cytology 104) Report Case: [id number] Authorizing Provider: Izabela Galvan Jr., Collected: 07/13/2022 02:10 PM Ordering Location: [facility] Received: 07/13/2022 02:43 PM PERIOPERATIVE SERVICES Pathologist: Lopez Reyna MD Specimen: Lymph Node, Interlobar, Left, Station 11L DIAGNOSIS (test code = [id number] 3220) GFuZzEwMzNcZnRuYmpcdW MxIHtccnRmMVxlcGljOTY gPrsubaGkRUHxtOGyP7Cu lmwaYGqeTL3hKO2xzVjvy MWekAGwVAMnDjUez9gqi2 84oLLde1bkSFDHhhjmhIt 8dVyvT10sa3U6VuxmY14s sLGbSHV6NDQzVNAhrYRhT RReXUV6GSFkaULdM5loGH AwPA8ldqqyWWukCNaxEHH yjVJ1CMTjjRIgR3QlMHAj IMfmDJUwfov1XsEgHj4jz GVyeTcyMFxwYXJkXHBsYW luXGZzMjAgTFlNUEggTk9 ERSwgTEVGVCBJTlRFUkxP MuCTYNXTRVLJX59wQEPPE CBFQlVTIEZOQSAoRElSRU RPORQCTPLBXpACAkTrQ7K ZICEAFR3KTwp4WVVfucQx TWVtCK9BK2REBEWLRXJCH iZJSQjKLNLHVEGQMA4UJQ wZNyYGM7qcVUPfriRtDXJ tIEJFTklHTiBBTlRIUkFD S5HXKpJTBZ3KEOYUR7OVJ IGLUXqJZJ6LEu0zUDGico 98PJO8BfNfn8F6ELN8EIC lJSFwv6ddUZHhlFDlGuAz MzNcZnRuYmpcdWMxXGRlZ yDaz1jlf037iBNuv0yeGQ DqOoS7bPEaNZAptSTbJ91 3WMPjKHxht0hxl2JjEMHg xCBgh2E6EGMSzlwclBe6e NwnE28gn3Y4GzheO0ryAD FoCXZnA0IjJT4fYLSyVpm 4CDC5YPE7XRCnNMLoC5Qn VL2zDLZqgMOnIEg8u3xxc FnhWLSvXYJ6w3bzURakpd IwAM6wsa7gqOs7a0fcorC lFGWxWZNmgFAFWDAzX5Ta gDhfJa7ywNp6lItyHuhiE MJ0Vpt2KE6cly12sfp8iP epHQZonuhtOaC3LRckGNW mrlmtKHg5WRrkQKOsbUX4 AUMxmDWiX6QoZICdKT3gk vn8AWK0NMleRAYzGeK2MX ZvaYBdDJRpxBtrTNdrj86 8MOC3MyOhDV7dJ8Alx4E4 zJ9zcVKkPLJoaKYgVbTkE IKzcf5jbQGtDNggt0PlPL W6wwF1mRCkbRMzTSOaJqP 4XPozVF5uee52OJJlJKV0 ck3stPTvbRrypbQjpIJiT DthA7IpWRXmp494GTPjG0 HjBUQky6Y8wdHaEzYuRZW jqKD4kjV0SUYiRF9cjcyh x6meURubVAvxMXJjnlM1q sJ3JJFhmYGsN9OrpA9rUK VsTS7ijxiqc2mlFLH4PHu qDDCxPKK2GgVzOPYmx4Lf mpw8RxApd8AuiGJtWOnsT 71dm907GFLduaTiM3rrmX FpblxwbGFpblxmMFxmczI 0XHFsXGxhbmcxMDMzXGhp T5nqDdKtQJMggYkdVAshp 2NoXGYxXGZzMjJcdGFiXH IiBmw1ZWLmxTPaOWUfFyN hX5qpptcwToIPBBXff7mh S5cseVQLxYGwA2IcTWems qXbNCrfYEgdPaNtOUo4DH 00NsUjOKDleh99 COMMENT (test code = h1gnqBYxMBOfwFH1OmTuD 335) KUsa3bhz5FzzPOlkGJgWU hrvIMtieGpav01iLE2sQ9 5MG7fUQHlAsH6GMCbhoX1 Lre9MIOhBMLazGWeK469r 1wqe6zoiiCmvTC1gNhcAX FplcfsQlY3XYjrASGchis uYDy9UHokNICwdHL8JSRk qIPrO4RrWXNcYQ6nbtg9A BZ2NFjxPSNhMkC9WPQtgK HwVUCdkQysPCexv392TCL 4ZaTnWGNersKjfWtduZ2f ZfDtVSLWdXArh5BpYValo oFeGLEvN7w8r7CqkQrfsS 9neSBjYXNlczogQzIzLTA wZzT4PRUFUvQhFHXxSdBs cGFyfQ== CPT Code(s) (test code = z7exwLDtNVSwgUX0ZoWkE 3357) MWqm3lsn8LclSFwtJKoIW jbgDJgngMkle26mMM0zI2 1GQ8zVGKsTlF8HAEtphA3 Hoq1HYXtQRRkcEQsQ082y 1smg0ouakMgmKF6xIrmTE PvyewxOmS5YXlaMNPcooa jJUe6JUmvNECdcJB9RWPk cEKrK5ToIFCwKX6bzed3P WT3MCmcHUWfCoQ5KBIpjN DsSNRhsEfvFHjhm776LDE 4FdSxGUEmwgImlEcuiU7n SuLkZXT0GZD0XwquMHtwR kHfAGg3MhE2TCQcph5= CLINICAL DATA (test code i5sikJSnAKTfoEG2OcYpH = 3355) YGag9phk4AkxIYxcOSrKN oodQKihtSdhm66yOS7yC3 9IC2vVHDjZtH5XTJzkuE6 Syx7TYBcIKPoaGLwI012z 1rmo7bkknXlkVT7mYdcPU NogmdbCcM1LRkyPVXcvuw wWCo2DPbqZBAttCK7BQJq zKGzZ9VoREKlXF3cvlx1D AZ0AZqzVPMqUnC4SIKhhO HgALKphBedRTjap710MJR 3TdAcQYLbulRepTpmgT2s RoYrFAK0XXX8Qq2hMTD4A kGmZ35dTBI8wSBbxCewQI LfhuphMVD2ZRJnQIDrQVU buQ8tKKEDT7SBBK2pWGBv fcT2eK3pqGEkyH1pOHJqQ sZiEH4hF9SnC9bqk9LvEC KJWMVktT1uLS9gl7LvrJP gt1ZtkK2aTQUbMZAlvP5s JW2gHNL3NA02ZQLWDCe0e JNtAQFmkY6sa2bsu2EvGt GGVXw0htrjji4mtKikCCC zHEOiMAltctPtm7OvhFv3 CQBip5GneP5ywlp4VBPpS wZiwcPbnIeuoGCrUY2jhd 1zbWFsbCBjZWxsIGNhcmN xeu4bRW9vaLYkcP== SPECIMEN SOURCE (test m2xgeHYiLGHhrWL2WdPrO code = 3377) SHdn0fjo7EqtRJvyRFhSR lzvQGzmwUsch95wTB0kN6 6NO1dXEMaCgS8DCWtqnP1 Bkl8XFMmREJchQGzF467f 7nyu7efmiLtmRM0oJkgBK ZurlpgGmD3SVhcTLEfqgx yCFt3THctZPFcyXE5KPFt vXIiP4YtURFnEZ0homw8X HJ9JFwpBNOaPnI5MBOyzI CpAARutFucVOpgy758SFM 4XbRkRHPratSlxTtmkN3s WdExOMLXKV3JHGEZL9HNF CBJTlRFUkxPQkFSLCBMRU FLUXHSKGEVWH9DCVNcOOJ FQlVTIEZOQVxwYXJ9 GROSS DESCRIPTION (test k6cnnLJoXMDwiSZWUPQbZ code = [id number]) 2dsfmNxUOGjtIDzJ3Tbsp mmLNwzGP4zHV5zuKdodBX ulQWcML0HFMBrMhAyIBOk cGVydzEyMjQwXHBhcGVya JC8DWCiGY8xaqtqAJxdBK ssVSYnwbQ5DLVnjUWhU9M bBKKoUF6cmyenYGB0LZuz yI9upwNCSlukUx1soYEty HtcZjFcZmNoYXJzZXQwXG FpsQboRKUaCXd4jE7FIva zZIN7PKCRUkgxGZCoNN6U a0jmZDNsaCSxGOJ1IVnpf LYnEDNpEAQhEPq3JSYnMZ aynMMxCD5aeFhhXciudNu nm9TjgZTtKYzpVVInFHOo VLvqLRNyQS3RXeKoFUujI ou0FkLfCVj7OAz6RK0CWx NpXEVdOpB6Pxj0BnBnFTs 0MXcaFP3XVOE7GRr2SUl9 XKS3AYEcVKIkFIWxWcGzP GYgQXJpYWwgXFxmbCBcXG 4hxXtjdJOpebHIWgNCpH0 rbDNAc7WcLJGMcrCltusu OjSoQQKZCDL9VNTXqIY8t E8nKHPmFO3ogZArTV1ARJ QmqEVFWJG7SM2eMTWFWnr ebEBgANXurQscWXgmnO7d DM9NNIy9mcZdSMDvZoNzC gSzJDr2LMAhDpdoyXsxKK tqWCG5fW2otWBbFABoAWQ vnjZkBlInzCKjB3Zqe07y LGRzd2ohWEPaGvSylvVfX GMoLRPiTZreSYKly7EiOZ lXQepvUQEzyOctUhhwQ0n gaPhaJ7MmSJnvZYBfdc0n nYavSKL8DKZ5KkJsDX3oG DAyLzAyLzIwMjMpICANCl xwbGFpblxlcGljTmVzdER tWgFpkMvmrL15BYBifQTi JVR0YZ2zIHNxrvbkTZPhK AGxERB4WXbqeD70vAAwOE GqSIJasNOqhT7KIITqYAF 2JHrxaJ44qWOxWS7YXUBx JZR4LSAchWNlPNJ3IR7vv Q0KfQ== INTRAPROCEDURAL ADEQUACY w6oawKSqTOIvfHI2GfNyE (test code = 3370) JVxr6hjk5AtxEUwqFGwYT jtyTRoviYvkg24eVF2vT9 8NV5tGOWsOtI8KIFyozV8 Sbj2ESPjZUCvzZQfG661w 5nmn9zfpiHzsYD7yZobRT GngwhgGbB8KSouRXLtdqa qPLx2LEbgYTMclPR1GQMa pXHwY3CyBLViQX8lqks1N SP8ORqnAGEbAtD6GGNzeB OrWIKooSshDOdps508SGL 1OmZjMSGytaRnmScgdA5x KdSuHZUCCDQIYP2VMPKmM YMHUS8GXTVJG8MORcdiBS MwSISNZ9TiNNSOJHZYUIW iIOWWRU1AERTVGPRNHYSD BPvRKV2QBGWYJSIJYRFTY lDgYT5MZUPkXoQsNsNfKb MpXHBhcn0= MICROSCOPIC DESCRIPTION q6dlfZBdXZSrmEJ4LsThT (test code = 3371) KSjv8dzk6ArdGUwwZVtPF dcdSXulsDwjh98cQH1vB2 2LD4qKQVoYfE8DXRjhxK8 Yyi3QGDlZXPwlIXkL390y 8uzx9emkyBzfVO5yDpsUT XqkbnzWiZ9MYbiMKYtpui jDWd2RAziUEVusWU6QIMg cCFuS9ImWHFgXI9jxcx9B ZP9PWtdSLAvXqI9SYIlkJ NuACGjoGhsWPybl180TEY 4KwRxPYNgorCeqPjqxI8t PiKqYLECOXTjj6AzOMJbZ HBhclxwYXJkXHBhcn0= Gross assessment was [facility] performed at ([facility], = 2777) Department of Pathology, [address] [place] [id number], Technical component was [facility] performed at ([facility], = 2778) Department of Pathology, [address] [place] [address], Professional component [facility] was performed at ([facility], code = 2779) Department of Pathology, [address] [place] [address], [facility] [id number] 13:35:13 Test Item Value Reference Range Interpretation Comments Case Report (test code = Medical Cytology 104) Report Case: [id number] Authorizing Provider: Izabela Galvan Jr., Collected: 07/13/2022 02:10 PM Ordering Location: [facility] Received: 07/13/2022 02:43 PM PERIOPERATIVE SERVICES Pathologist: Lopez Reyna MD Specimen: Lymph Node, Interlobar, Left, Station 11L DIAGNOSIS (test code = [id number] 3220) GFuZzEwMzNcZnRuYmpcdW MxIHtccnRmMVxlcGljOTY mMtfaqiJyJLLjkHNjI6Kc ilyyUJyiYU4aQN5hbYdlt ZAmgEMvNAZyPlBzy5isz6 18sVLqi8xrRHVDloamgZc 9dGbgK51dq1Y7VvndD78d xPNbITU2XJMjPDZgeCCcA KNuRCG5CJLfbPLwF7ezXO BhHX3vutzjOImsPVoyOUJ iyNE5NODayAHfL1AiNUNo MDrwKMLoixj5XdCdEi9pe GVyeTcyMFxwYXJkXHBsYW luXGZzMjAgTFlNUEggTk9 ERSwgTEVGVCBJTlRFUkxP IxAHIRIKNCBJF05uJVYSU CBFQlVTIEZOQSAoRElSRU HJGUCVQXGBTiETObYhT9H MVQAAHD1JTxq7GUMwcwVs YDPnSW4VA6SGAVOALSHNF uCOAGzZZGOYOCCART6PXH zUJqNRW2eiKFRybwNbPWW tIEJFTklHTiBBTlRIUkFD O5UFWbFMHR9YQSWTQ4RBG LGEQHePFW3GOj7oBGIucn 61PYO3BjDgf6H5EUH6TPP oUAEbx6czEFTfsYGxUyRm MzNcZnRuYmpcdWMxXGRlZ bDbr7asy851uPVkc8kqNV YsEbJ8gYYmOSQzwWZvA54 1YTBzZZouv3dau2MvYQOy bXRuu2R3BRNUihurgJt3s NauZ72hc1O5PqrbA9frXK WjKUIbV7KhQC1fQLZvGco 5ATQ4SKL4TXLfUHFlT3Pk GY8cBMQmkDTeFKz5n5mte GyvMASkJTV4x9tvAVerjj BiYJ4ple2rbSf6u9mwwsC dYATjZAEobUZCWHAgX6Ag zDrtDe2kmXy4vUawJqcxJ CN9Rqt7XW4uyc40qeu9oF jeTMFqxephRrZ7TFmeSUI byrkhJPp5EMalYFCzpCO6 VSWvoTCrS2MrLRUeKC9nn pv5GFL3RRrhTVOzLzS7TF AulOSjVYAqtHoiOGsgm68 2ZEO9NuUzOB5kQ8Mtv7U0 wH6oqIOjWCYpiPRyIuPeC PQmwh0jlVKfVFlax9LsAY B2mzZ6rHFiuGEiSBNnXeU 4EUzdQT0zlp31DCMeKWS6 mj3opYYbbQbingJppTRvD MezH8GsXWZbr166VLQiY4 MlUQYmt6H2juGrSqSnVFL gkZA9fiN1WOBdSS0moliu h9xpCUjyOAfvCEJcwfH5r hD4RNFhwBNqM7HvoY2oLS FtOO9nlsbre2ytCXO8EXb lSQYpDEJ5CvKtJQSlk7Zy kir8LoWji4JrlQBzDQpfY 21ni812UHOdzuAoZ0qxxB FpblxwbGFpblxmMFxmczI 0XHFsXGxhbmcxMDMzXGhp Q6ptAkXfTVTleHlvBKpjo 2NoXGYxXGZzMjJcdGFiXH UuMwr1ODJnjDAtYRZxUxG nV6vmvdagMnFEXBAhs0fe B6vksSNAeCGvY6NeRVsbv yHlQKoxPTodIePnZNp3PW 91YqKgCZZuza99 COMMENT (test code = m7fxyKOqDYZdnBS1WkGtZ 3359) ECzu4eby1UsmIPloXWkRC yoaQFbobIprd95cKB8yV7 1VO0lRBKlIiC0BSExdgS3 Xnh2WXZpDENgdUCwR623w 9xmc1nyqyTdjOQ7dShiQJ SalobtJcR8IZavUAXetbs pXCy0MHhoHSQbjQA9XXLs xKZxP9EiPAUuJA8scxp6G XH1EXxbXAQtDgJ9EMFnhL PmSILdnMexAQgjg395YFZ 9PkWbADDdsrQpzZygbG2g UnErFVFBtNVri1YyPFswc lPvPVKxN8f2n4QuvLybrY 9neSBjYXNlczogQzIzLTA qYmQ1RZUAPlYrXZNnMjBm cGFyfQ== CPT Code(s) (test code = k4gneBYrJFRsrYT8XrEtI 3357) RJat2kmi1TkuUBmqYQrPN ejjWPkclLzgr71eXD3nW1 3YJ3mDYKcSmL6UJAvwpC9 Nxy7JPQpJWAjcVBmQ957m 0kqf1djavWpbZD5nRxtAV CdzzgyGqF5MZzrQYUqody xFEa3TTpgSMBtgFW3ZTQb pQAeK0RnSXTvPG2ildj8X ZM9YZwsUGUyGmO1RNCcgG XfZVUchVowQMzbi287NNV 8HwAdTUEyotYbqJdphZ7x WxZnSCV5NWW6DyibRSmnP bIpXQn8SkG0RIDjea0= CLINICAL DATA (test code v5dseRJzOSFvnAP4YgNmL = 3355) PLbr7drn2YkdLBfbTXhLL wyfZVstuFouz68bTH9xO9 5IB5fUCNvOkX8XYJpqlS0 Vtp6VFSjKVXimIRmS453g 3asx5qjufOluRM6oNniEF CvwgknZbK6GGhaSMNbxjp kHEz0PWuhCWLjvRK0VDBk iWRtL2DxETLiBX1hwaw2P WM8IAurTPIhTbC5PRSpfX DoKUExtHfzXUzhp057LJJ 5NoCgCHWscmRynDepsU6u KpCzKCY3MHW9Hh5uAFM7A gBuU57iLGY8nURtjTjrDC MuiujiEQV3GPCrETXwKND ooC6pCPBVH8DWVA9hVSTj gkK8mE4cxYIvwC5lELZtB iVdGK9hA3KsR4rus6LhBZ ABPUPiwC3wGR0ct9LqeYI le8KmsR3iUPPrBIHboV5c EZ3lXAR3ER61KRCTGZp8e PKbPDBsaQ4bf9ywk5NwZa OXUCz0nkpnvd7ngLflGVS zYXVgYDheazVbu5QnkJt9 JEFmm2HtsM2unkh4LZLiW iWsjmWzoLyifIDnCO4pzy 1zbWFsbCBjZWxsIGNhcmN nhl8vSR1pyXVtsQ== SPECIMEN SOURCE (test t9vzoGIbQKHveUI6MjVqM code = 3377) JQcn3wzj6EsmABlxJRrQV fibVSjupBadq94jMC6iT3 0GR8eKDScLhO9JMCwlsF6 Dah6CAWaBJAjcUDlA592c 3byk5qofhSimHJ2iJwuNY MmyjxcHnG4ONriCJNzqvc tAEa8TWmtUCJakYZ0BOBj uHFjR9EsNGQlHQ7kbyl1M BQ2GOzvOSQvHgF0CTDoaE AmUWUdtZpvHAzhl951VDL 1OzLpAPKdkcMwqTtivE3m QvJjKRQWRI8MBKRTG7BXB CBJTlRFUkxPQkFSLCBMRU IIFOYVFVPYQB1ACYKwZWQ FQlVTIEZOQVxwYXJ9 GROSS DESCRIPTION (test y1bbmFGuRFObcQEQJCWzD code = [id number]) 2yucyVqFYQlqIUbV8Mgqj ejDIweWG2tNL0ovKbvxFM ozVNhCD1KBAGxLnXlEDJc cGVydzEyMjQwXHBhcGVya BS7HLEkMB3wzhliCTfyFI kxMWGgapY7TKBcoAPsJ9K tTTLgLQ7lglztTAF6GZez yR6hknCKOznuLw1dgFAcs HtcZjFcZmNoYXJzZXQwXG GcbUruDVVaKYe7gA1YUmu kFYD1IQSAHpfxKBCvCL2G t8tfVVLgpBHdZMU2HQxcz WSfULDnWBBhHQw7VUIkAB adhHWqFW7xcGjxSdtmxQf vk9BdpBNlIVnrFJCpKGAd POwbCPNqAK2NXuCpXXspO ws7TyBzQEw8DKl7DA9ULy EiPAVlVdA2Vwx5MtIhMFj 4DWkuXK3TKFY2EPb5LYs3 QTI9QBRfXMYgCUFlEkWuX GYgQXJpYWwgXFxmbCBcXG 8fvSzmnAXvlbIKZeHYdU9 haQVLd2PlUSTCaiZorjls HaJmUWBAPPQ5AOGQlFT7q S2lOJWjOU8kdDXeMC7VDQ QtzGBBNPB4PJ9mNBVRTow vcHRnGPGmgGvsOBptzA8h GD5IIRo8kkXcUMZhIrLzP jPbCNw7CHUiDdzxaYdcDX jcXAP3dU5edYVjHTCcTEO djmFvWiDppNNrW6Spj51t DNUpz2zcKSOqXhTwitImK XFhWAJqNPfxKQLua0NwXM wSYahxFEImtUfaQznvP6k dmKyvK7McDQpeADEubh4y gGwdLNJ2KOJ5XdHxDO2hP DAyLzAyLzIwMjMpICANCl xwbGFpblxlcGljTmVzdER eUgZmdXtyeX08QKTzjIFj YOC0DC8hUVBeolilBYJyU EVsPKA2ESpkiE16yALrWR XuOEVnkPXpdT3CHCNuSUR 1CGmnyP50sLQrMA0UGFJu LMU0ENKhiCTfDBS7VL6qa Q0KfQ== INTRAPROCEDURAL ADEQUACY b3gwhATdGDQsnRQ1FrXdO (test code = 3370) NDgf8pwz4QltIVqeEQxQN qcoEOhabGial99nIB8qM6 1GD9yGYYyHkY7HRBusnA6 Mfl2FUMyCSMslZMgB543z 5qvc4ncorTesQC6zJneXP FwpkkpEqT4PDtcOZCwsjo yDPn3RYmlZTValOV7KKWl eKZnB0OiUCOmCW4rrrp8Z II0NMsnNHCbVoM3UXKcgE WoNIDhsFysQHeqb612OYG 6NdJdTBGerwElzRovsM8j InYnLSTXCJXPRW4KPQWhY VQEFH2VHICMT0AQUfueZD WkEIDFE7PxASBYYTJHWWU mIXBWTC5KBRCUJCKEQCCC BIlCDL7GTTOYZILYYKGFE fBlQL4ZOHNkDjAcTuDdSk MpXHBhcn0= MICROSCOPIC DESCRIPTION m6vtbJAwJSTmtFY6JqXcA (test code = 3371) CGag3qgt6WsoDGizLYrGY usqXBglaGdxi32eXC9zH7 4TW1cRVSkGyT2ZKAgxvG2 Ziq4ZNNpPCVmyYJpV571e 4cme2qytnBbjVN1nGtmME PodtbiKnZ0VOtsLVQhlai tXYi1LEnfMZRwfTA9FDVu bHPsT9QuTJFaTG5tvog2B GJ7PDnbYRVtGvV0QAUggJ FpTMMkxRlaWSpub135KNM 7KlMvCVErcoZanHeyqS8l VyBdQYWFUXHbo4BxFEKvB HBhclxwYXJkXHBhcn0= Gross assessment was [facility] performed at ([facility], = 2777) Department of Pathology, [address] [place] [address], Technical component was [facility] performed at ([facility], = 6626) Department of Pathology, [address] [place], [place] [id number], Professional component [facility] was performed at ([facility], code = 2773) Department of Pathology, [address] [place] [address], [facility] by [id number] 13:35:13 Test Item Value Reference Range Interpretation Comments Case Report (test code = Medical Cytology 104) Report Case: [id number] Authorizing Provider: Izabela Galvan Jr., Collected: 07/13/2022 02:10 PM Ordering Location: [facility] Received: 07/13/2022 02:43 PM PERIOPERATIVE SERVICES Pathologist: Lopez Reyna MD Specimen: Lymph Node, Interlobar, Left, Station 11L DIAGNOSIS (test code = s6oxlSIeNLDnc2zlDSAqu 3220) GFuZzEwMzNcZnRuYmpcdW MxIHtccnRmMVxlcGljOTY nKeaewrImRKKebSJfZ3Jz lcljTKliRQ4pPM9yqKgoc VFpnNTbEOJxAyAst8ujl4 87lTHas4jjDERTiyltxNq 2pXstG48lb5R7OzqfJ35i pBUrDEN4CKEdIHOyqSFhU QIwFWW6XZNxdKQuJ1lsOL HzXH1ssngpVMjhNYxmUGX etPI4HUXjoIUhA7VsEGRf CCfrVKJfbsw0XaBrRs1gj GVyeTcyMFxwYXJkXHBsYW luXGZzMjAgTFlNUEggTk9 ERSwgTEVGVCBJTlRFUkxP LxASZIOBRFRCG91tDUNUO CBFQlVTIEZOQSAoRElSRU TGWXVLQFOARlGTBbLwK5H MRSWHRZ8HWyh1QITzerKy LGEhFQ5HR3PJOUPIRCXRC sGMBExXPLRRCXNGDC9ZJK iPQgZYG6ojUGUircUwJXW tIEJFTklHTiBBTlRIUkFD K3UVIoKYUB5KDTIKK6ZTZ JNOMCfQBH5NPa9qNTIpni 54GQY8JeNil5O4EUR6KQM uRLNfp3bpGINyrUZzXxUb MzNcZnRuYmpcdWMxXGRlZ wZra8dmi716mFLvt7bnAL ZpYlM3uQWxVKLerJJyU79 4LFNrQMsbs3idr4KkGDBb vOWdg5N2OGSPggajxJm6f YusK94ns1J0BnbbX6agCI QsYLFsZ9AhEN8qGRYlFwo 4QHA6JBP4ULOoUSHeM4Dx QV1xAWXzpJCgIMd4i2etm EhwXDLxTGC0l9qwWUgcxo ZbJC4pnt7klKr4q8mtbwS eGIOoYVLfkFFCQYZzZ4Ab vCxoQz8obNa5oBhyUoyeH OX7Tdd6HC0ksr42xxh1qP heSDYwtqzoCfC4CFpsSQW ifuobYKp4UKksFVBpdRM9 GUTetCMjH3NkSYBlPJ2em se1IEB7IVjnYDDwCaV8VL OmnPZkIHAopQjzBYvfj03 4NDG9OkLeVD4aA3Zso3H1 dQ7hbWPnGDQkkEMdCyVaA BDmge7vxXPoEPdgp4RlNW D8tiQ5nPRicZPeVXQkRvT 1UMzsVS1cud68IVDaLUB1 jw8xiIEdbXgnfkUavNLiD ExpZ4FfSEXmr502SWYmD9 MuUGUbo5Q4izRzNxEqMEY lwTD8jgW7YUWzHG1ojkev r8xgJBxfGJqtKRXqnxT4z wY0EUCriMAzA1ClsO1rBK EhOQ1iyqmhb1yvBZZ2PGm mHMScHCD8TlNiQBVaa7Du fpt8WnPje7BvzKUeTDkoI 55ys873OAYzkjYvL3zczW FpblxwbGFpblxmMFxmczI 0XHFsXGxhbmcxMDMzXGhp D5cxMbIdPRUwlLkjNKbrt 2NoXGYxXGZzMjJcdGFiXH WqJae8ZXOueLVyYKPkBgZ wP5ftzvgwJyDGJWGve6oa N4csvHIVhHCoB9CyNIvwn nYfDEweVZhcXuIwSGg1VA 78UaOqHCRrdq71 COMMENT (test code = m2dkoJWeNFSleDB7DdPhO 3359) VPku2rww3AknQUvtQVyEH mpxEYchyIiun04yGW0uF3 9MO9sCVNrSoN9GWQndeK2 Vnc7HSClFKRvjPRfK017i 5cca8ajstDcfVF9pNzuLS OscubnCwG0DJoeNPLuccn mOLl2VKjbPKHzvPG1LPNq wKVpS8RpEHIaEH2cowv8C PP1LVobBICzFaI9UGOkgN PlXQBnbVyxGTuce704JUP 5VsUjUQJomaQndTuolF3o NiBrDBQLfRQkm4EnKOwhl oMpZNNmJ8x3g7NelBabkE 9neSBjYXNlczogQzIzLTA rKbS9LYXGPtFpLKJnRcHu cGFyfQ== CPT Code(s) (test code = e8jueXTjBHAijNN0TcKaX 3357) VGtq6zeu1DhiIIghVBoXC epfLMwbmZcvm82zBD4mP7 8YK5bOELlIfT6ZEGxeyL4 Bfe3FSKlZHSsfGGzL272u 4qwu5shiaFseKQ4mGjkML PgdycdFkQ0EPwyQBMepis yHVj3NRvuYPLksXW5LVAh iPXdJ7UoLUAqPV0xeom2W WF9NIrtOOIrVtM5TBVynR LgVAWsjLjvMHoze330KHC 8NrUvPOSgqpHdmPnrdE6g ZeCuGUJ6NMY2BydcRHulK qLbVDp9CzY4ORAcgn1= CLINICAL DATA (test code c7ybvPRgAQCjlJU1NcEyZ = 3355) ZVds4tks3QbdRVtlJPwJY pcxQRxrkUboa91cET3eC1 3JR2oQFVeJpV4BMXeqqM5 Epa2VQMgFPDnlQPwK027a 1lxp2utknKxvST3vUcrAK MtshjkLrW9NWleRHSqdhi hGKo7BYbiWUEmpFS1PTRy lGQvQ9UtSZLkSP1wbem3K XJ9GGqnMKBxNqF4WIQnsF WdAMGfwPaePTayw722DGY 0CvVzGTYrefGyjAgqxN3i XiWfTEI4VBE1Ff9uTPH6S eLsB08pCUC1dYSkoJdoCJ LbhghcCWD3YAEbYTPoPXQ wdB9eBLTTV5MPKU5yIFYm wuP8gR4asQSkrF8tIIXwJ xUeFK8sX5IsU9fbd4SkMH FGCAIgfT1gTR9so2WkiJG to0DfaR0tSJRzWSAlkJ1v SL0gSML6VC56WTXQRMb1v JSxIHTfbY6hc1jiz6ZvHf HQWLv7sqlvkf9uuWskHJC dDYEwZDhrjmYsb4OpxVe9 LPJva1QdjU3lrft2AOQbS uJyfsJptCixqNNtQR5asz 1zbWFsbCBjZWxsIGNhcmN ues0jKL9niILztE== SPECIMEN SOURCE (test p1edgELyPLPbxMX9YkFmV code = 3377) XTcw8hut0JbpPDwbCQxCO hriQTkoiFwkg44kOP1iI8 2VL6oCSXtHhY6AHYxhpZ4 Sic9BXZcAVZoeMLzO476m 0wcz1hrayGelVK7oJxnXD NkyjuhDkF5LRofKUHjdeu mWFj0HOpcFKJlmZT7CDOe kWCcW7SzDHTuPF7qaib7C IE6BMueGKJrPgP5PFHudT XhZKSqzAdmZHcrh377KBJ 5QrFpZLQfqdQpnEpezT7s FtJsULAEUO0PVZUDA9BSM CBJTlRFUkxPQkFSLCBMRU LRHHNUEDKUXU8YMXMtBOY FQlVTIEZOQVxwYXJ9 GROSS DESCRIPTION (test b9btqTElMWOhsHUIENMaL code = [id number]) 8mhcuAdGHRbkMUaR4Sphv adJJwkWJ8eXB6uqDbfcEH bwYLcPP5VCBVfMvZjBSEa cGVydzEyMjQwXHBhcGVya ST9BSPtIY8ydeklCVyuYI rfSBPfbeF2LFShvDPpA2P tAMVjRC2fgpwjYIA5PQdj qP6dbyEUNhugVi2nqQQqu HtcZjFcZmNoYXJzZXQwXG BcnFtrGBRjNDm7iK8YFlu bZUV3DNWMGduuHCIcJW9N j4xnQDYosIZmIKY1RAraa THzYMViEJJlEQu5ZYOuJI kkjEUyIQ4xmKnvAaribCf bc8XpqROvHVpzGKOyQRVo XCrgCGInUV3BJoQlPXdsF rc7KnIfNTh8DVp9EO8RTa MfDZZlYtY4Vgy9PhObWYu 3IFqeZB5HRRZ3SUw8VNv2 POI0BOAnNEYsIDLrMjRbM GYgQXJpYWwgXFxmbCBcXG 4yoWmreAJgigEBTrMHuP3 upVIDa7FyGTTKjmEavioa XyRmDLSBFXO0YSVUoST4t W5jHHGdMQ4ltOAmPM6LUY FptVLYERD9CT6lVSEIUij ztQHzKLYmcLomKTygdW3f IN7QFOz8deWiZHJuXrVsB lSaMUh5QESaExvpeTilCQ ldMHQ0wC4boEQyBWLjMFM rxpHgBsBnnFIrY2Nqr66y SHKvh6yuCRFxIyNxhaVyF TRdSSKnGQihZTCul4ZzPV aUPdmxMOBliJfnIhooH7c qyZrsK8CmLKjaFDZajp3k oWvsYJD4GFY7ByXcTD7kH DAyLzAyLzIwMjMpICANCl xwbGFpblxlcGljTmVzdER jRwKnlZjamO52GSPkuSXz CLK6AX3vYGZblkuxFOYwA CXnBJJ4KLgnbW52qPFhCD PbONGzbBSfwK8UMWKcICM 6LFxgzA00mRQjIO5DOYXx MYR8BXVziGBeOQN1ZC0gt Q0KfQ== INTRAPROCEDURAL ADEQUACY k8ecuQPgTYQnePX9AwIeI (test code = 3370) IByl4odj4LabMAjgOXgXG fhtZDdxqBiwu89nRI5bN1 9FD9xYLPaFbC3MQPiooO1 Rnw3ZUBnDKZjdKXfM904v 1ybt3jlxwHbsUF9eVbiEP ExnjbbUfX3VUmbECUqgew eXXb6VLfwCLFmlJE9AURm sGNaE8RfSGOnOK6ugob4B EM6OYvqTTNvBfU0WHVryI SyBHGdqQukZYlgg891BOD 5WgLtLZXyndMfoTtftK6m YgBnDUDOWMPRBC2TXDAmS AXFPN7CGCYNA7HYLnxbUO PkSNBWH8KhILHYFIXYGJJ eNTXKJJ1ZMTWGJPYSPHBK SKaYRB9NCTRXOILTCAHUM mMnZP9XVDSnAoXmVmSmPk MpXHBhcn0= MICROSCOPIC DESCRIPTION t0zwpPCsWGBfkYF3WwUnY (test code = 3371) YMlw9ftu2QhaJZopHXiUM csmYEsebRdup01xQZ4oB3 4UN9pOAEbAoD6NJYnvjB5 Kes4FDLsCICfhCNlR518v 6kjs0lioySfhAL7nCgwFG XdsjwcVzB2WWxrZCHrafa sPNc9MBeuVYAjdVQ4HOHt tAXtV8EiJGFsTH5dhax4E OR1PIpuYUZaYzV7RTQtpE ZwRBAgqKpuVCfyq902WNS 3GuTuNKXzkiUrpUgorQ1o BaZiVYLMIMJwy8UfTRPpZ HBhclxwYXJkXHBhcn0= Gross assessment was [facility] performed at ([facility], = 2777) Department of Pathology, [address] [place] [address], Technical component was [facility] performed at ([facility], = 6546) Department of Pathology, [address] [place] [address], Professional component [facility] was performed at ([facility], code = 2779) Department of Pathology, [address] [place] [address], [facility] [id number] 13:35:13 Test Item Value Reference Range Interpretation Comments Case Report (test code = Medical Cytology 104) Report Case: [id number] Authorizing Provider: Izabela Galvan Jr., Collected: 07/13/2022 02:10 PM Ordering Location: [facility] Received: 07/13/2022 02:43 PM PERIOPERATIVE SERVICES Pathologist: Lopez Reyna MD Specimen: Lymph Node, Interlobar, Left, Station 11L DIAGNOSIS (test code = h3cfeICqVBSjj7cwMOGsy 3220) GFuZzEwMzNcZnRuYmpcdW MxIHtccnRmMVxlcGljOTY jQkttryFcOGQgmSQsN9Nq qoxhPXggWU6mKG2blWoqy GNtiORhEVOlIhYvg9xtd4 34aUWjm4tcXSOCzwdxyLl 7kFaoB06wb2A0JkrlI37p jZHvLFE4RYDhDOPevOHnE OMgMDL3WXTqjPUnX0fnFW NsSP3ipijbRLdvYKkhJKG mjFQ8GURmtYUiW1HnBAMx ZAzvNBTmhvu3WmVhHv2xi GVyeTcyMFxwYXJkXHBsYW luXGZzMjAgTFlNUEggTk9 ERSwgTEVGVCBJTlRFUkxP LbMPEWYHKBJUD49mPLHHK CBFQlVTIEZOQSAoRElSRU ISBKDGMAMKOcSENnBiY6O CMPXOKP2CWtb8JCKtfgDj AJBlPH1LF9CSEXPMQQGVW qIKKWwRSOEXEBOUTI3CQS aOYhEEI8wzSSAaotBnLDA tIEJFTklHTiBBTlRIUkFD I4KQSeCSSF8WRGDIS6ZPD LIIAJrTSD3GSe2mTFOgiq 08PWB0UdOiv6E4GWH2NMG gMADqf8sgNWDnxIViDcGc MzNcZnRuYmpcdWMxXGRlZ xLej9wpf718zOWnd2irNB PhFiC9dIReZXIekRIuP60 6CZNqGAvfq1vtm6DsEHFh kHYoz3R8FFJNqjlrcWg3m CvmV89fd2S4OzoaT8wdBW DgWHCfS2GsUD3mKDDxBsv 5QEJ0NMX0TCLiIVHiT7Xq DN7yKNCikVUvGZo6s0roy JpgITTyEHG8k5stYJlhpc NsIU0ubz3bwFw4f8srgpM fLRWnXBRrwIHWKTBcT2Tg rFcnKp9gcEc1lKkxAitgI JK1Mll8BF4rmv01crk0xT whWUCwblamKjK7LTosJKX qcpwvUUn3JUrpJOCgtBE8 GXQbhRHqK8TeYBHtXP4tx mz4GVL3MLxpSAXeFpR6MR VvdBVpLOLnvHlqAFvde54 4TPK8HcAuMC7eZ1Did4S9 eW7haTHaFECkxBFcLlKkG SZmte4tfJLnNUtoa5BtLK W0otW5jAMkmNAyXGWpObV 7DSuhIJ3zhc24CMLmNPW0 bi2kuPKaoQtoesRkoPWhB MzvZ0BfOEZbc461CFWjB8 EfRQQyb7T7stNeGrLfCAT bgUU1glT3JGQgOB8anzfs m4acIWesYXemAZElvmS6b cD8CPHvgTOnL8CjaA8wSG RbUR8pqacys8uzNHW7RBh nOOSwZPR2DhHkIPBzt2Tp pnt4UcKug5OgdUQqETvzH 50dw260RXJlcxIgA2kkoD FpblxwbGFpblxmMFxmczI 0XHFsXGxhbmcxMDMzXGhp Q4xpAyThOUQxbBibHFotu 2NoXGYxXGZzMjJcdGFiXH TdQvk2AAPntQArVJAkZuZ lJ1cinhzvHmXINLSsv4fs V9lbtGDZsEPxG9XtNMtia sTdBIzoVHqyQlIkZPv9FB 75IiKlARLhug54 COMMENT (test code = c4saxTVyPSFzfGE6CpHnI 3359) MBpn6otp8HkdSDgyBXqYB swfYKztuKjyg32uKE9wJ5 6KI2jFIEdRtD6OKAermI3 Trb9HDWjTWIkpWAhN912v 6wxe9pnonAgsVA9lWmfAR YjzirdVjD8UBfoJSFitsj iKGz2PZpzIOWcfXJ1OWWl hPMeP9KfWIDuTI5xbzh3I JJ2NZgnEGZjCoB4IRPtrL PiLXTzdEcjSRzju851JMG 2VlFoUCMafzCbeNhraO2e NoXjFZESdVSjp5LyJRvtz jOjQWJsS0y6h8PqiWnhhJ 9neSBjYXNlczogQzIzLTA aHzS7IPZBMrNoQOThYeGt cGFyfQ== CPT Code(s) (test code = e9bcdWGrHHUpkRI4SoYoU 3357) KZyg3vcy8WztXYduYByYV gpxDFyciDevz67jSV6hQ0 7ZK1xERWtAgU2XDZpwqQ7 Trq8PUOcWOBodOEvU877x 7kqz7mgxfYzeJA8pRwqGB YjtdtgDqM6SRibQWGcvyn rEDo8HGfoHNWgoML2ICEv oFVoX2AaOMJeJX0ryiz2G FV7EJkdUCCoUaY1VSYpjO VfCMCyqHdqETwpo052RIW 6NbAvZGMszaKueBcdvL8z ZgWpPMB9LZA9WnhdZIkqF nDgCIk7PlP3TLBjrb3= CLINICAL DATA (test code i7ashVGqYLYqaYW7DyFfL = 3355) BUxm6nfz0HipDQlmJImLP qphCSateEhrg51yYA0fF0 7SV0gCOAbVfI7GLCcimN4 Hme3GVZiECZugXUlE007b 9kks9enuhLsdIQ5rPfnXT LcrpqyFeY2KXytFROhrng iKPv9NTnaMHZrcUC8FNMm yJXiE3WtMYFaRH0gxpo4I XT1CVjvEZEvCwX2TOMklH OdPIPovUxpAJvru114JDV 5UbObJLYgwoBafFxauF9i BpAwSYA4UOY5Vm7kVNB4H bPqR86wNHI7rFKxlAhtJU XbqysmDVQ9GQLyZDSqFZA kuM0tMBGOA7SHFQ6oHILs taE8jX8eoEKsoR0xOJAbR sDuOI8wN8YbN5jfv4NjQF YBAGIlzG9xQN4yp5WsqET yc8KuyX7qTKQmXKFtsH4q WN7iKDN7BQ92XOUFYYy0s KUeRBDakP9id7wpb0YdCg DTPUv5nobsoo9yfAbnRZB jSTKlQBcolxPhj7OvnPo5 FENcr7DfoA8gklb5GHAbZ bMjhlKnsIbhcUJaTO0awd 1zbWFsbCBjZWxsIGNhcmN ykn3gBL2anYBdfQ== SPECIMEN SOURCE (test a7ztsWXeAODqsME3MtMqM code = 3377) LHaz1sra1EvlQHkrFPyAO belBKajdChzi37pYA7sM9 9UT7bJBGyBqK5ISSmjpD6 Thm3OTQdOVNxhNGqZ220w 4fqv5ppijYcxYZ9kMcoLY NwmhniBtQ8TTqlGNFvzdy uNSr8AVobZWHqwCV8QSFo aBYbI4XkUVCcKT6goql4T VB2XRktORMnSyY1AAVeiU HlOZLdyYrqVOzlt424NHO 6LyMwOOFompYrzIdrjT5u VxMlMCQTSK5FBVYIF7LFB CBJTlRFUkxPQkFSLCBMRU JCHPHMTGLNKU6FNZShXCH FQlVTIEZOQVxwYXJ9 GROSS DESCRIPTION (test e7qluJRxXOWnnALOPDOiS code = [id number]) 5fifsCxIESokKUdL4Nfpw vpFMjaPM9dSF9byLxjeFF luHJhES4GCPLrTgQsYOFo cGVydzEyMjQwXHBhcGVya HS3RANrEY4hodvsRSqzNR jvELCbkcX2KPLtjDMvH6N yZBDgNU7rivbgYQQ0STzo gO3tvcEKCjazTk2rpZWet HtcZjFcZmNoYXJzZXQwXG RwzYfhZCOdYCf9dR1BLlw tJGG7IZBMHjaaGAMoQG4R d2jjMIKsrXAcFTK4TGyio IHvQYSuZMCyWXd8JKUvYL ztbUZlKA5aiVakHrmtcSs pn7XvwPOhCKswTHPhHQLf HZauBLDvOV9GGoScXMuwA sv8SnJjFVg5JAg0PT0KZd IhSFMwNhY6Pas2InSuWMk 6FZicHV8CYEA4OGj0WCx2 JDZ3KCSnCTHfZZHyEuRkW GYgQXJpYWwgXFxmbCBcXG 9xmDnuqNQvbyHRTeHVgO5 vtLBNs1ClCUQWudCzgtbn ClJyOBFVOXC6PWSOsBR1t Q3tBLZyJM1mhWUoPS1AHR XqkFURDWJ2EW3mCPGOWli poIWzBTDmvIwzHJlfyR6n JP3NEJg5rrMlWTKtOkRtZ iAkWTe7JAUdXkpooIpuLO hmVKS8aR5nlDKnGTCgJXQ gcjDfNtLoeOLhY4Ibd49y HUBgr3jxYXOpJjTucvNcH KUwYPGjOKfzHIGel6WoLP qVMtsaCANxfTvpLzjfM3e jlZfoY6IuPWyjTXWrox8z jWqfAGE1PDE0QaSsYR5bA DAyLzAyLzIwMjMpICANCl xwbGFpblxlcGljTmVzdER sHdSrtHmjyQ88RFAqhOOr IDY5WE3qKTYfusxsTXLnD TMhJMP3AYrprJ00eMOoKC VcSYXnvUHhtO9DMYCqWOI 5ZYvkaR25bMInJN4TZPAq UUI6WDXtoTUeLYE0HG9ik Q0KfQ== INTRAPROCEDURAL ADEQUACY l7hokSReCIKljJJ0SmIvK (test code = 3370) VLxi4bce1DfsLInbEUoYJ fadLVsboGvqg77cYF7tL0 6NU9eYOBeUdB7SZOkamS1 Rce4IFLwUEUavUOvH736w 7fgk6swykBpwDF4nUjcKJ PuzvtcFoP0EDucEIFixwr zAXd8OBipBBRjzTZ2LZVf cUOyZ0SmTFDoJK1oohw3V BY2VCnmHGOiVpB2FABxlA MmRAKckLqdMPkpl730NIX 7QwKxMNLppxThzIzwtC0s BqLoLPQBWWNWQC5NXTNsD JKXPU1UFAVQU1FGDmjiFG YwGYVAN7RzBFKKIKWLGNS fYCKGZD5BXRAHGHZYGFSF DRcXSR5GXOZJMWIPQNKPE eRcDR9QBWTjYzMlGiPbNz MpXHBhcn0= MICROSCOPIC DESCRIPTION t7qzwISjNIRdzJI3GcOpM (test code = 3371) QPjv1rxf0CscOAfyMBvBI bxkOEmgiAgsb48nEN1aJ3 1EG6vJBUpLwE8CUSdyaJ7 Wus3XJMpNDVfhHYtS431x 1ofb4kyciImnLF2dSewSP NysekfZxE3IRszBYXmksd mVBt2TKstMUPbvAR2PRZg kQZkH4VfLLQaBC9ehmv1M PF3HOoiUENhEoC9OEAbxZ TsRVNsmPpaNCuqp175GGZ 5UoOjYZDvzmRjzQeduS2p OwApZCPVCTZcz1OsCVZiJ HBhclxwYXJkXHBhcn0= Gross assessment was [facility] performed at (test code [facility], = 2772) Department of Pathology, [address] [place] [address] [place] [address], Technical component was [facility] performed at (test code [facility], = 4388) Department of Pathology, [address] [place] [address], Professional component [facility] was performed at ([facility], code = 2779) Department of Pathology, [address] [place] [address], [facility] by [id number] 13:35:13 Test Item Value Reference Range Interpretation Comments Case Report (test code = Medical Cytology 104) Report Case: [id number] Authorizing Provider: Izabela Galvan Jr., Collected: 07/13/2022 02:10 PM Ordering Location: [facility] Received: 07/13/2022 02:43 PM PERIOPERATIVE SERVICES Pathologist: Lopez Reyna MD Specimen: Lymph Node, Interlobar, Left, Station 11L DIAGNOSIS (test code = w6hqgJZyGDPyi3wpYPJwf 3220) GFuZzEwMzNcZnRuYmpcdW MxIHtccnRmMVxlcGljOTY tBgulxlJtMQLnpXIrQ1Us nzztWXdoAQ6oME3emPqpi RIojWDnRQTjFsNqm8wdi3 38sHHzo9svUHRSjawrbZd 4eUxoV41fe7C5BkblS59g lXHoSHD9YWOfFJYqgJBuA JBoPSV7DOGpvZTvO8gdNY WrQV5zjfafXRnpXVwxCNS ayFA7UXNegWEnA3TlZMFk NOpuYHDspyg9OzTwLc7xa GVyeTcyMFxwYXJkXHBsYW luXGZzMjAgTFlNUEggTk9 ERSwgTEVGVCBJTlRFUkxP FqZHYLJXIGBOL06lXNZTT CBFQlVTIEZOQSAoRElSRU FOWWTPXKSAHkWXZbNdW1U UOVWIUM0CEqr0FCBygzAd QXCdXJ2KN1XZSZRAOQVAQ yUHHKeKWPPYHKVMKX0AEP sYDiIXU9imTFHkjjDqDCP tIEJFTklHTiBBTlRIUkFD T8NNRxQRYM0VNOGXK7TZL JCWPQsECW4GKs5zDKQcjx 68DIX1LbPtu7J1HNG2KPK hEKEpn2vzGDWkfYOxZzOd MzNcZnRuYmpcdWMxXGRlZ uOsq7gji484hNWff4rcMQ OhVjQ9fZXhQQNtvYDsD52 4XOGgIPbhx7zzh3YjDFNa pMLfc6L4HFNExtuzmHn7u GvwZ52wq6Q1GnrfQ3kfQQ XrWUWxE7HxMV0bWIHdMzt 1NHW8NJM1IHMmUTHuP7Cd JF1nHTLumNUaZEt5i9iws MntNISpXOS3q3ehLCncgf DdBN4oaf6sfKg1h6xbfmG rELGqSFVidYXIECJnO3Tl fNcjJi9qfSk5hJooAacnW ZY0Qad7OB6byg52xrx1aP haRAVtdrndLjA6PWjmMNA censyNIo4COufUXUcaSX5 NMSiiKNfZ8HrBOIwAH6tv qq4YZF4FYrtDYHiUuX6NR FxkAEaKFLkyLrmTFfum02 1DQM7InDeFF6eR8Yxt4O0 aG8hnELdBHTkeRDgZyTvA YApke7plLZtUCjiy3LcLA D9etT2jWQkfYTcIWNoMxK 4QCrrAV4dhv21VLHdZQW1 wg5guWRxcIppbjGjwVIdQ VouF0QlAIXpf801PFRwC9 CnWVGcx1M2kuCwFyVzJEO bzDW8jyJ5IZTeBL3xxlfj p4tfSEyaXIseCIZpyyC2w fP3UFZogXPrP1QogO7cDH JuKI2fbagty2oxNVW1FBq cHYCpTJQ6ExFgZQZag0Mu mkb1DlVvr4BsaKExQSbfS 55zp458ZZBbhwZvD9txjH FpblxwbGFpblxmMFxmczI 0XHFsXGxhbmcxMDMzXGhp K1voLbTdTHGxsMspOEzjh 2NoXGYxXGZzMjJcdGFiXH SdLjq8FSHxjGJaUMXwOeF zC9zgecdoEbFUIBDmr5ds U7inkOCXxZFiQ6GmYDrtd kBkCLxjKHnmEpIpHMv8UG 11NbDcIOKsuv51 COMMENT (test code = u7lknOUpAZWqpTW5RhCwI 3359) VNrn3qco5ZuaYSnkRIuEZ pflDHkygGcih54gDT1uJ9 7QN3pRFNyUiN0KBNyzgG4 Leq9HGVqRFRvxFUbY079c 3wnz3sdybJlmCU2pMzsSI ApqfisIjH1POuwMSImxvg gPMq1ETuvDVDtcCW8YCLo iEZdA7TuUMXgYW9brge6H BD8PZezYCOzAdN2SFXveP SpIGJulLulPGedt874WSF 4BwLgSEFjcdFmyRqdkH0t DkGzTRVTgDQrq5GhNXrvh rUmFBXzO3a7e2NwbWxhgH 9neSBjYXNlczogQzIzLTA gPrH5UFMAMfOeMGSaGdKv cGFyfQ== CPT Code(s) (test code = o7hvhHHkSXYhbBF7MqUoW 3357) SCao6iwy6NfnGKpnWWhRH epnBYbirVkxs08aAO7gY3 5AW8dBQDzNtI2ZUHbyeZ0 Mhc9DDYfFIAvjOXnL130g 5wno9eszuWmtRR9eNtsGM QeelwjYsP0OEzyTABslxp tTWk3QEsuJTHptCV6OFNx oUOoW5EnWMWoQP2ppqc6X QF0BLzaYQVcUgH1ONRffC SqLLQsjYgzAJlxc302JWA 9WkRvYQCmapKehBnjwX2g IoJmGMG5ZBJ5CsrhXAbfE wQiSBv2MnY0AWRopi8= CLINICAL DATA (test code l5yjvIHkDKClqXX5IaVqK = 3355) UOzb5qog1XijWKepQDzLN othNJwxmGizx07oYZ7dN7 6DX9fKZEaHdC8TLYorfC1 Iwm1NUNcFMIpyQHdQ543m 7ged9mrixAhmOU5cYoaDQ XxqbfzUxH8PPrqNQLfzxn bBSe4HKpwZVKisUZ7TPMl jCYqV7LyUQBoYV4yucn5L NW0GFqfHKBeTnD2MSTecZ MzMUUgyXcqRQiwn002IMH 2WhYoSOVfvhOruHswnR4p InWaHIW1TQM3El2hTRP0Z oAkD37kSYM0zMXgdWihJR MvpiqmECO3VQMtIZDwLFB ijB4oHAZDL7KCSG4zPYTp vvQ4kZ1exERdtB0wNGBiT iIyCK8gC9AcR4fyr9ByEM ZRCKSzuH3gOJ6jg3YdmPL vo1ByfX4uQIMdLQEfoT1n BB5aQDL6WC14ZCYMWPm9f MEdXMLghJ0jw7kuv8MmBa FRPNe5jnowyj2mpIrmMNT lHQNtUGjskwAvl3IdgCh1 FETei5TxyI6icop7TWNyF nAhvsUjuErfvPWqTA7qdi 1zbWFsbCBjZWxsIGNhcmN dpj8oEZ6ajKWlzA== SPECIMEN SOURCE (test g1ycbNDoAYZdnWP4CpMvT code = 3377) LDok6fcl0VnwZAnxKOhGT tbpYIcwsOrqv08xHZ9yE1 2OP0vSJNyGvJ1IFAnxoB5 Jjt0ZGIvPFQgoSBuR790w 7maw7iwreDacCC2vUzxKO XvmiagBjN3DQxrNDKexxp kMIx7KIooCXSceAP6XFVo bRPqQ5AqLHSsCV9oakd8H VG9RHsqVNInQhD0TCJmmX AsGRBnpAtmGJvhr903LMH 3LjRgQBQxkgNkaDiudK5n JvFpPLMNGM2SYUZND2PKK CBJTlRFUkxPQkFSLCBMRU RKGGMLNATACA8PEMIhYPF FQlVTIEZOQVxwYXJ9 GROSS DESCRIPTION (test l3iksZHjAISeyQSVPDUtL code = [id number]) 3yfwpQzPEGvlESxL3Evwn ypKPzrZB3jVA5zwUpfrLC vsHVxGM0YVLUaMfZdBEBp cGVydzEyMjQwXHBhcGVya HG6YEZiGU7zgsmxUIfbXP bmSCEzkyY9QFKteBAvI5E oPIWlIV7pcqbwBMK6CEom jN5jpsJFGlnvOo1lhPZyc HtcZjFcZmNoYXJzZXQwXG RsoLevKUJmTXg9pM9PVgs mQWH9JPHEFcqfCPZdHF8W u6vwTCHuiUNbMRA7LJazz KLaOJVtBFVlKEr1FTOzFH xfnXHzWO5sqXohOspkcVb bu1MotWQdNVbkRHAiHHLc ROazIBQuJL2LKzMeLToxD ru2CpUaVKr2PGq6GE8QIk IlOWBuEpM4Aro2TyQmMVs 6IEutZO1CDLG6UMg7YFn6 YDR6XFRvRWXjEOGtGjOsP GYgQXJpYWwgXFxmbCBcXG 6dqOfanFLykhPRWjIBeA3 ltRUHb5BrRXRTcxDfnony TsOkDKDZZHJ2QKDNhLP4t C0tXNAhKI3hvMPvNS6VIS CskWOJEBS2ZU1qTTNTWtv jzQSrFJQioJenONkzaW2y HP6XDLv3xgFgVLEaScRcX iZrWDm3CQAwYzmleQljKL zqCBZ0pN7nsWHhDKIfIOM vtvFaRvAcxVTwC8Sxg11n JFMel6grPNYePkJjgvNcJ OJxJGTgSFgzQWRax1IlDF gZHcjpODEzkXfaAsyiT6a wdRueO4IuMBerGRComw8p xOvuTWE4KDM1YvUlFA9kG DAyLzAyLzIwMjMpICANCl xwbGFpblxlcGljTmVzdER sAnIisAzefH12DEFcuPVk WEA0SR1jVLRmfajoYIHmT HDgKBL4GRytvD47eBMoJK IfYUMobFBvvZ3GJSMjRUS 7JKbgbE87kAMeBB5KQGRr KJP3PFXmsYUnAJU4GM4ow Q0KfQ== INTRAPROCEDURAL ADEQUACY i3ssvKAmILYzaYQ1DnBwC (test code = 3370) IKql9jpv1HvsVIgyYQjAN kwtQMlgiKttw55iQM1lM5 5DY2dENHoEjU9MZOfgjH8 Zrz3SEFoXSAkvISiD082a 0xle1zjazVxxQW2vCboWG KgkybkEzC8EMhhTNScygr gTGb3BBzeOXNcbBS0OATg dHVaE0DlXDXlOD2mmmc3I PC1FCrjZEOkCbV7YRNfsC AwMQQguSjiEBeie836RIJ 8XzRzKHGikfZsxKbfvB1d JcYaLZHVXKHNNU6IVJElY ISOTN0TDTSGH9VQZyprWD EjDHZXQ3OeHQRHLSJWNBG kUSDDAV2MGLPTAPBVKKXX MBrPAF6MFBOZMGTRAONAF nSrWB1GWJOcQgOkTiBzLd MpXHBhcn0= MICROSCOPIC DESCRIPTION i2boqCDeOWKgaDY1CoGaC (test code = 3371) LIpz9ppo7JixNHhqWTeGW sazBMmkpZkcz56aPM2xP7 5JY5sVFJpKrA4BRGtvaV9 Uuj8FAIbQGYjzYHnY301b 8sjt6gqzyRntRE5zWesCY HwtnkxQmP2DEatJYYmgus xTTm1XZxwXGWtdTJ4UWPb bNEhX1IjIPHtFZ5bhfn5E SM0NPrbMPUyAmZ9ECNacE LgEYOzaYoqKIjhp260BBP 6ApWbLABndaGfrIxhaW5p QmSoMHGTKZXeh3ZzKEQzD HBhclxwYXJkXHBhcn0= Gross assessment was [facility] performed at ([facility], = 2777) Department of Pathology, [address] [place] [address], Technical component was [facility] performed at ([facility], = 2778) Department of Pathology, [address] [place] [address], Professional component [facility] was performed at ([facility], code = 2779) Department of Pathology, [address] [place] [address], [facility] [id number] 13:35:13 Test Item Value Reference Range Interpretation Comments Case Report (test code = Medical Cytology 104) Report Case: [id number] Authorizing Provider: Izabela Galvan Jr., Collected: 07/13/2022 02:10 PM Ordering Location: [facility] Received: 07/13/2022 02:43 PM PERIOPERATIVE SERVICES Pathologist: Lopez Reyna MD Specimen: Lymph Node, Interlobar, Left, Station 11L DIAGNOSIS (test code = [id number] 3220) GFuZzEwMzNcZnRuYmpcdW MxIHtccnRmMVxlcGljOTY iXcfmpwQvQJJknMObI8Eb kcovXKxlJF9uUS5btWqyh DHuiZRmHJEfSmYck6uur6 02oYRaq9nzJFDHkiczlOn 0hOszG99zu7Z6InkqP21i kLUpGCW5KKWwPYRdsUMhH JHbTJA9FPXhtSZjM6seVB OqAF3wyrovLDyxQMmcVNA zwLT7GOWntTAlQ5WaCKXn BBtkWVMqszg9KrUwUa2uz GVyeTcyMFxwYXJkXHBsYW luXGZzMjAgTFlNUEggTk9 ERSwgTEVGVCBJTlRFUkxP YmUKHOMNEJAYR95nOURVV CBFQlVTIEZOQSAoRElSRU YUJWBBTVEKThTOAlEnL6J EODOVZC0UZjl8FFQpdqBx BXTqQM8ML3ECAOKZRGCHI rUQVHnGELSSRYIHUX7IFW vTMzUHQ3ozAKNzsxDoKDB tIEJFTklHTiBBTlRIUkFD P9ZIJrNCQO7CFTFJK4GVP UUDRDqMET5KGa9nHOQxuq 56BBK1XjUyr6O6VQV7FJD iMNLre3gtLFQcrJUqHkUk MzNcZnRuYmpcdWMxXGRlZ kNam1frt254jCLte9poKF KxRjI7iXBwCAPtjQVfA31 0GFBmVKfti9tfu1VtISGf qBVud3F1QRHLvhibhNz7s EeuN10ua0Y2IdfaW3uqDQ SnSIAlR5CsQX5bCLAjRwg 3QZM3ZGX9YIRlUUYeU5Vt QO8lIHTpoHKdSAi1s9tld QneQXMhZTS8o9bnOLybvl GiDJ0tso8sfSl1n0lakzQ gAFWtQNTcyOMPTPMnV8Ap mTihHf7dvUl4rLsjUeyoP KR0Ihd5YH8ufg50gkv1rG hiQKKzertaEdJ0YGfuKRG eygtnDWs8CKepGXHrgDF3 DDYmxSMyX0GoFVUqXW7cx nv3ARC6IOvuNZOjIhP9GQ VxrXTqGIZzePliVVjeb16 0OGP6BoPoSI8dL5Vll0A4 tL2egOIuGDZvwGYrYgPjI LAcuw2piUSdENtei1IaWN Q2stX4wVMcaKHlSXLfSoS 9EWpwGR3osc24PWAiUMB6 gh1pcDYqyZitcdZsdZCiF QynW4WnEPWnu440ZISrB9 BpGENea2L0xwZxDkTxFSG yrUW0lnX4ZDYcUY6fowcr c5bjYGgjTGkbPMSnzaQ9l eB8CORbcXZbD6JlpE0gBN HcCA4jcsojc9jyXGP3DOl jSVCcTHS7WzUnEYYbj7Db ubr3QbYvp9OwsQTuQKyfH 96sq706TMSgoyTkR8gyfM FpblxwbGFpblxmMFxmczI 0XHFsXGxhbmcxMDMzXGhp T3vwMrByHGFmsZdsJUdny 2NoXGYxXGZzMjJcdGFiXH JwYzl4IRIqsSYlRVEqNsK eB0qwfrnzHiGNNRIze3vb B7cbqAQQlSMtT8NwSMvfu fEaHBbcAVddYzLgCVq5RJ 18SdGwBOFsjd64 COMMENT (test code = w9lznKNlCRYyrTL3UvUzV 3359) YUlr4ydx6XkjOVfvAOtDO nhfPRnzvWxhu09lKS2pT9 3OU8iLVDuAkH3ICBsjnY4 Eue2ZGNiHUZjcILgZ825o 7rwp6ajtnVrqUK5vXtqCP VjmooeWpH0QPkyOFDwrmq yCIw6FOqkDRCsxYG0DKQo pAYpA0QkKCTdJS6kiqj0U IW2UKyoJJUvAvL2XIMrnE BdXTVesUhnWLsjl662KID 5FiYbTTRckgYbdRkddX1j QjHzXCYLiGJae3EcLOqtm dNyTKSlM8l7f1YibDgjuV 9neSBjYXNlczogQzIzLTA zNvC0IBDIWaZeUKYbTqAq cGFyfQ== CPT Code(s) (test code = e7jczMAwSFGyhMG1EnUaT 3357) ARws0xuj5WvwEZbaVTeKB duuDDrraJacv13eEH5xC0 2LA5nVTBdCpU6CRKrajS2 Jmq2HKCbHGGzcYKwD387a 8qqy7lokmZotNM6wXagQQ FtkxexGmS7KNwnKOBbeoi nCSt5XNezZLEfqHP5OVYu uBTvU4CuQQZjFS7rybo3X VF5BHovMXFyQmD2KYIbuN AaINLaaSfnZSzvt550YAO 6LdSoLZFxjrCjrPysmK7c ClYwSWQ3RFH9TrylJTmaR xJrCHy5HhR1QZFfpm0= CLINICAL DATA (test code z0gnmYXmJWSztSB7LmEgG = 3355) NWjm5yyd9EncZFoeNAoMK ekbIWgykGjeh50eVP3bL8 1MT6yOWVqYdC2YUBigjC1 Uby3CJChPAJndWMhJ435s 2jqs0smbbMmgOG5tBuqCT RgdddmPiP6EVsjBKJztcj iJVl5HIykLAAhaES1YHBe cPKeN0SsIDBySZ3qssv6A ZA2MRmoWFZyXxY6VQItmN NjDRPzbZxyJZldl532OTR 7AgBqYLHcalRvfUqbaY5m QlWpXSC9ZDO8Dy9oKQG2V rZoO62zVWY7pZEppOubHI BlvhexTRN4CWGwPSHbIDX tzC3rUPRXJ8GHCZ1qXBSh ghA3pS5qzTUlbV1sBKSiQ uQrYW4kN6IpV9blu7DmNE BQWYYlrK6tYC3nz4UtyGG me6GdfG6sSVEoPCQafX4e TI9fZRR9HI63DPYDJUa1o OWqNGGslK7fa6wgw0GiTy HVBOd3kwqpgl4gjAqtSVM oXXWwLHmbqsFez0CylYz3 QBAkc0DrfM2kpcl4IOIyL yZicjXkeZnazASwXW8nzw 1zbWFsbCBjZWxsIGNhcmN bjb4sBJ4kwAOcpQ== SPECIMEN SOURCE (test y2altKQpMJXdtXQ2TgFeY code = 3377) XBhb6aqi3ZqlRZhxERaWG lmaLWwqvVeom09sPR2fA0 5UW8tLMBzTdD0KWRdouE5 Ymj1LTEnKHWgnTYsA789v 4gmz6ketnMnqQI8pFhjES TqjsrjUpA8AYmkWLLttao nVUe0ZPcnYLEeyCG2GGTy vOQvD7SxDTClLC1svkz0Z FP5JUyhDJOdTaE3RUQxpQ BbTZNadDpdQJnjg317MZU 2QgRuICVjhlUiiBlvmN0k KuEbPIDEEF7KMMSXS9XSR CBJTlRFUkxPQkFSLCBMRU ZOVQWQDXWDMQ5RFUDrBMS FQlVTIEZOQVxwYXJ9 GROSS DESCRIPTION (test w4iacNAvYFOziHCOLULoH code = [id number]) 6afkvKpJAEmpVKhE1Ytmi cjDWfqMV6oAJ1deJwyuAK rhANjFO2KBOUlZdYfKLNa cGVydzEyMjQwXHBhcGVya OA9FDUgGK8xreplSJzlKL epAMWiyvW5QWPgrMJdM5W fOFThOM2ijoxxGQD7DGap sQ2ripPGQtnuOn1zfTLwf HtcZjFcZmNoYXJzZXQwXG YwlHneUEPvCCy7lR5OKtn uWUD9GJOZMxblBJPsHD3L p8egCNRdiTMiCUQ9FDfvk LYlNCEzTVBnYIi1EQBeIK ofgAGpHN8mmBokEkzdqGa fl7QcaVGdRAntMYFtLAQr JSzsEDInQU4RFrFkGFleC xi3NqVtQIn1MAc9EZ4GQh DjLTLuLbC9Kid7DiXeCJn 8XYtyPI9LOKC2JMi6KGa8 LLK3QRYfXESuVSUaZrFlT GYgQXJpYWwgXFxmbCBcXG 8ngXycjMClauDWJfRVkS0 usKIIz4TxVOMVtiJktlce KeWuRTRFRZF6QFZBcQW0x B9wSLAuNB0qrLGcDM3LVJ TktZTYPRQ5QW8oWLMHRzj fePPwTFWemWxgBMuvfA1p ZN0VFIs9hpZxWLEkDuIaT eLpGHi1NISaHdzpfBxrOH khDVO5aG2qeWHsAUYfXHH euxGjPlHakBOmD5Otm88c SQAcf7fyJXLsVmWjdbSxY EVpGDTiDBosCWLrw9PmDQ xPVopwLDKxpJikDmwwN5y egNzuD9FwCJokLYBejh3m aVclLMJ0VCL7AzGjBK1jE DAyLzAyLzIwMjMpICANCl xwbGFpblxlcGljTmVzdER oMeAjwYlroL32MTMwuZGn PJJ5TU3bDTBrsjemEMRvN CZyAUM0DDhzuT23bDFhUE AmTOYmbMMcbO6HMFKjEID 4OTvntJ16gVUhKV2XHEMo TTB8RSIrpYZaKFK1QB4bn Q0KfQ== INTRAPROCEDURAL ADEQUACY o7eunQFkBGWrnUK3FlVvO (test code = 3370) VPxn3lte5QmzOTuhABjEZ mhxWMtrkZsud29uXR4gB7 6ZA5qLAAuHsS2XDNbgpP3 Pay8WBAlYQIkkLNrS383f 9jhi7elixOgvOX1dFsdFQ GqwbshFoZ5CLheUZUrmwp dZTr5GKtqUGTzcHB1YTTj eWUdH8FkNRRzJY7xnrv0B EU6XZycOUAsDdH7ALHarA HtBXMhvOkiFCutz333WYL 9AxZzXNLjabIzyCqgfH6t RoGvYHIEOJXZZT6IMAOmD RKCVR8WOWYBC1XHPpafIP RcUBDRN7ZzOSVOIQUXDLA pSUQTAX1VXKNAZCXWJITV OPdQZB8LHSMPTRCDVIGVS sQeQR1CUQNfOlOyRqSwZn MpXHBhcn0= MICROSCOPIC DESCRIPTION b3fdqESwKEZsaFO7JeLzQ (test code = 3371) IYih3lwh4AbgCHwaLLcOC gguCOfboGmxt64iOF3zP6 3GO2dEDKdFuM3KHJvzgM5 Ine1ILFgRGQrpBHqV563l 9hkk8wmgoPhsHL9rGssBE TctgewGkG2IJasNUDpgmk uFUg3VEevDJRibJI2VCHw gDKlL3YcKMHuRQ7qoze0B UJ7XAkbWHXlMuO2YXTdlH DgCOStaNewOQnro207CVK 2EeUqYFOqkpKekQriwN2p IqXxRVTGHMXzd5KkRTSeW HBhclxwYXJkXHBhcn0= Gross assessment was [facility] performed at ([facility], = 2777) Department of Pathology, [address] [place] [address], Technical component was [facility] performed at ([facility], = 5983) Department of Pathology, [address] [place] [address], Professional component [facility] was performed at ([facility], code = 2779) Department of Pathology, [address] [place] [address], [facility] [id number] 13:35:13 Test Item Value Reference Range Interpretation Comments Case Report (test code = Medical Cytology 104) Report Case: [id number] Authorizing Provider: Izabela Galvan Jr., Collected: 07/13/2022 02:10 PM Ordering Location: [facility] Received: 07/13/2022 02:43 PM PERIOPERATIVE SERVICES Pathologist: Lopez Reyna MD Specimen: Lymph Node, Interlobar, Left, Station 11L DIAGNOSIS (test code = u3ykoYCdQFTgp5jtCHUzf 3220) GFuZzEwMzNcZnRuYmpcdW MxIHtccnRmMVxlcGljOTY sDbkxizSvGFQklEWyT4Bl kpslAMsmAS8qLG9vkRbai IQynSItQKSqBoGjn6sde7 16wYRjg8ooDWSUwapeuYi 7uRxvI57fn5Q0SiakZ56b iVEuMWF7QDXbMBYfjOApT YRuOYJ9BKKnkEPwJ6hnSY NiSQ8wwssqSUqvDAiiOEG cfAH2HERkpPPdK7NkNHHj AOdsTYIebbf5OkDxBa8vw GVyeTcyMFxwYXJkXHBsYW luXGZzMjAgTFlNUEggTk9 ERSwgTEVGVCBJTlRFUkxP LoXYWWZYUXZPK81wXDKOI CBFQlVTIEZOQSAoRElSRU FNGZIYSULPLoOHPrEaI3U TCIAIRZ4SXir2WWPpioIu XGJoBN4KD0BYYNSCQHCSS vOSTCdOVSJLLWZLZM3IEH nTIvWPN9wkJETyoyErUMP tIEJFTklHTiBBTlRIUkFD R2FFVrJIHR8YZMCOW8TVP FITKNvTBX2TKt3nMIInts 56ROD1EeUod2P9YAJ8AZH rKEPem9zyEQGymIUxFqKn MzNcZnRuYmpcdWMxXGRlZ aUgw1nmq974cOKrx0hvHX FaYuJ6oSGfUIGcfUCcP02 6SANmDUrix5gde8ZuTRFk hPWzm7I4AUJMjmkhwBb2n VyuS30yw8K6PnjgD8plEV KdLMEyQ8TkOY6jNGRvPef 8TMO7NMF6ZROhVCVeS5Gt WN9kRDTlmVCxMHb0a4tdl HegOQPjPLM7y4cjCHxgyb DwWE4heo4lwZg8u8yydyW dXGTmPEFmhKWZHGBeV9Ph eHzrWe6hkUz9gCgkDhyhN RF0Ugx3TV1hjt43gbu8lB eoXIEoalxrScF3QCiqNVN bdecvYDg4HYmtWVNzuBL1 JAXseQNiG0ToVPYeGC0hf qt9LUM3RRleIPFaBaG4VQ XjlRGyTTBlpLaaVVbgb44 6YQO9IiUeCA5cL1Mdc5U9 wB0ibNLgYYKnzGBrVsXiL RDoip1aaNEzDOlqm6DsTP R3kbZ6aVZeaBXgKKBdQzY 4WZcaKQ0geh29DMLfGNQ5 sc5leGEwlVgybwCjyAViM NjvQ4ErQCPbj077BFFqV3 LmNHGdt8Y6bwMyFzQbRQF nuTV4fmQ4RUSnLZ0iibne b1zgATucPDeoNAHzvwB3g uJ5GEWjmUFeF9VvgZ9jEL LfZU6wrljun0ksACA3KDg aDOQgKMB1BrBhIUGzl5Rw ioa4LvQhs2QrzSZqSFafG 87nq319KECyzvWuM5cliP FpblxwbGFpblxmMFxmczI 0XHFsXGxhbmcxMDMzXGhp J5djDyEsDNClgXmqNPftr 2NoXGYxXGZzMjJcdGFiXH YgGua4NAOmnBPuSXRbDjP qD0qxyaeyPrEWWPXna8ql F1uanSUIbTCmA8PfGQnti pDsBAksVKykBdHfEUw7IX 89GqUlOETifg22 COMMENT (test code = k9bmoEBiICGjhKD4YuFdV 3359) DNqs6zcb7SghBVwuHHvBG btpIApwkYrtc28nKB9cO5 1OI7kENCzXmX1VUPdrnS7 Fbk8TZQbGMKzyNXnE325c 1sda6woerNzdAX6xGulZC GshklqRgQ3INgmWQCauaf hJDa4HVbhVRMpnPU9ZPLi yJUqW2AnHILkDX0zrrx6P PD8QElsSDEeTkR1SCAbhZ NxJIWtoDkeSNbwd789XID 6RlRdEXPbzoCfdWntvB3y AkRjGTAGzNUxk6TgRNqvu bJpFLPdK0s4o6KkvFitrX 9neSBjYXNlczogQzIzLTA hUcU4DZRYPvWgXWYcNrOq cGFyfQ== CPT Code(s) (test code = m0ymlGHdDLZmoSF6RgAjZ 3357) PBgc2lrl6SoxALnhFZkIU ehiGKphwNknu79bCD0gI6 9AT4kTOYqPwQ0WOWunbK0 Pbg7OURvOWZumFIjN420v 7slt5igieSxwFB8vIqaAR LxhtzpWkE9GBeuULMjxkr yWPf7LUqpJXDnmQU1BYAf fOAlM6YhTSFwDT5ncji2R AH5UGupMBKmQuB0BEWlvL DkKARvfKsnPYcot556VPM 7CuGpZDPztwVnuMiudZ7r KoMaMKK5ISA2YvikWQykN rLuCRm9ItP1ISGnsh6= CLINICAL DATA (test code f2ukaJYyVWMdzHS8MtMlO = 3352) MXui5ffp1NgaHJhuJHoRT itwGHnnwYkkd59fMS4nS7 6AD7vCIHpYpC4WXOajqB4 Cwh7KCKbMIShpZWvJ783c 3obh7zwslZimCG7rDafED YarllwMqG6MSttZAMotku kAEq9CVxoYKXnuLR0IVZt qRLrH2WqJIIaZI3ygkf8A XF1SOerXYEeZsS0MPTywM RzRFXxmYrrJWsud010VTP 5ZyYuBGDiguIbaNfafL7w QuWoQNB3KGX9Go8mCJQ5U cDlG67uFKY6rVDfhLiiLJ ErhqfrRXR0KLGqNCBpNVT tsL9rUEHDW5FCCB5bIAKj goE6pC8wfPMlyR4jMMSoC qCvUA2nZ7DlI5wso0DoZK FYCVCftU7aFV8rc3JcmHS rp6IlcO0mGHGvSAIshC1v CO8wWIX1TI42MTMNNFp1w FWqZJTskK4yf4rbl8EnOb WGQTl5xmlcns3jxHneMMA aYKXiRVpetdMfc5IrsLq9 JGSbj1NpiX4lelj5CUBoB nYuhjRdpUlszFGnVN4qiv 1zbWFsbCBjZWxsIGNhcmN fqc8qKG7frKDxaR== SPECIMEN SOURCE (test f4pwxRDwSFRpmFE2JdGoI code = 3377) POdp1bjk9BbzHKgzTAxTH sqsOThfjRdas07pSR4sS5 8AF1mTFHwNpH4PBMumzI3 Eeg8MTOvZAIttIXgP757l 6hen4ubgcXlnWQ7lHwcUR SkeildFxD3WMlwCLBdfpq cPHf9TZstXUTqcXZ5NRNn lHTyI0TcKWCpHC6gchh9Z PL4ISjoISDsPtA7JTNfwE TqAQGjeXtpHHhom084BZL 1IpBsQNInleXfyDdwgF6r IiObBZKZWN9YDFCLT2ZPS CBJTlRFUkxPQkFSLCBMRU NVUEDDOLRBAK9GCMVrTRJ FQlVTIEZOQVxwYXJ9 GROSS DESCRIPTION (test y3tpfKVhVRHkxIPHLPEaJ code = [id number]) 7nmgmJbHPPckKAzL8Woxo xcZTzmGT2xTO8htKhcjZU baCHmRM2QRMBjJhFmBDFm cGVydzEyMjQwXHBhcGVya OH9YAXsEI9galtoHNezMK jsOFAkfdS3NEGyjPSiG4C sFKUjLQ0blqfaJCM6ZNjo dU2ugeSHPncfAm0xnJTsq HtcZjFcZmNoYXJzZXQwXG ZxgUhfVXWwZGy7pP7IAmo oHAB9WJQEWdhfNIPkTB1E a4rdVRDgkWOfSGE1YKrqh WBsHPLdATXlNEk1LPKdGP nvaTLkTG3vnVmwTqpmeTt on1CcyHYdDSesDUDcQFUn CTlgWYZwVZ0OEgTpZShzT cj4ZuBzQWv2SHu0QC0CLm HhYXIcKhR7Dlv4MeKtYAi 4XYgsMJ3XRZY8DEu3TDm5 SWT8XWAkRJXlEGSlOzEoE GYgQXJpYWwgXFxmbCBcXG 8xfPvtzCGqocPYVeOUmZ0 mmWIRz5UoWJSCdwIlcmhd LrFoVFGTJDH2ESQSlZC9r K0lVJGqHC1sgPGbZX0TDB KduMMDQYO6FG9qUGOQGhp vhJLmFQOksJmeGDzsrJ6s GS9ISGr1afJoNQPsGaXuC eGoSWy0IIKvMjynsQwwEF aeBVL0mA3cjQHpANYnHMA korFxIiDybZUyB0Crj31e KYMdj4ywIYHvPxVbhnZmN PHoXGRpBGzoNNLng2LkUV cQTvtyYCVvtTzyVzxaD0i rtZrpA5XmLJmoNUGmxq9g hLrqRLG5IZX8GpFfOV5bO DAyLzAyLzIwMjMpICANCl xwbGFpblxlcGljTmVzdER yKfEocFecfC09EQVtlYDm AGO1QB9rDEIyadjaMNEzF DZjQZE4AQousN57gMYoMB HeKCJnuUQehZ2CRRFaOFD 9BIeecT88fTNgNW2DTVGy GHD2RCNefGRtAOL4XB6tt Q0KfQ== INTRAPROCEDURAL ADEQUACY i5rvdFHmPRVpoUB8JkNoM (test code = 3370) OKnu4qom9KzlDKjdCHsIN xvbCBnrtUtpd93bZQ0iZ8 0AQ6uSKRpJyK9OOWbvvK7 Ctb3IZBgUQYpyFFpR823e 3beh4rcvpIpnWX3nJjyCE HidabuCzH1PPqyFREvfof uGHo5ZEicYNObjMD4YPGq zINsM5JaIGOoEO2hhwl5L OS6MJhpPAOqZqV4QCVxuW QfNVNvhVijCLtbu748SUP 3RvMbBKCwfgNeqAwifX6v OkHcBKWNKVZYVL3DBFCgI TSVHV6BKUERA5WKCpksYE SrZWDCK4GbEZJUQIDISZK cXSBNLB3ZSGMFOVZWVPEW JVqZFU6WOHIAUHXXPJEIK dOcMJ8MLJBtVsIpAqOfUf MpXHBhcn0= MICROSCOPIC DESCRIPTION h2ocsMLcOXZchDV8QgRsM (test code = 3371) KJwu6kub6EqgTHkgXOcGO wsrNFnnqCwjj39nYR2wD5 0YD5kAPLoMsZ5YDDfhrJ7 Zmq1CBJqRQRwcVFzR924y 2bsz0yaenIccCO6yWvkXN MfxymwQsR2CYtjUHVxffl rLJm4OMrfZPTloMA0THUx zSAqS1ZnXWRtCQ2ytjd5R EF5BCmpZJOcLeS5LLUgyB VeOMYojDogGJsec925TXC 9PgAdLRBabdQogDuzaR4c CsIpXSYXWRJrg4CnRKFpV HBhclxwYXJkXHBhcn0= Gross assessment was [facility] performed at ([facility], = 2777) Department of Pathology, [address] [place] [address], Technical component was [facility] performed at ([facility], = 2778) Department of Pathology, [address] [place] [address], Professional component [facility] was performed at ([facility], code = 2779) Department of Pathology, [address] [place] [address], [facility] BY [id number] 13:35:13 Medical Cytology Report Case: [id number] Authorizing Provider: Izabela Galvan Jr., Collected: 07/13/2022 02:10 PM Ordering Location: [facility] Received: 07/13/2022 02:43 PM PERIOPERATIVE SERVICES Pathologist: Lopez Reyna MD Specimen: Lymph Node, Interlobar, Left, Station 11L LYMPH NODE, LEFT INTERLOBAR STATION 11L, EBUS FNA (DIRECT SEMARS AND CELL BLOCK): - NEGATIVE FOR EPITHELIAL MALIGNANCY. - BENIGN ANTHRACOTIC LYMPH NODE FRAGMENTS. Signing Pathologist Direct Phone Line: [phone] signed by Lopez Reyna MD on 07/14/2022 at 1:35 PMPlease also see cytopathology cases: [id number], [id number], [id number], [id number] y.o M w/ h/o arthritis, anxiety, depression, COVID-19pneumonia in 05/2021. CT chest RUL lung mass measuring 4.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 Lymph Node, Interlobar, Left, Station 11L.Received 27 mls in cytorich red and 3 direct smear slides; prepared cell block (A2) (cell block placed in formalin at 16:33 on 07/13/2022) STATION 11L LYMPH NODE:- NOT ADEQUATE (REPORTED BY PATHOLOGIST HIRAM Hinton ON 07/13/2022)Performed.[facility], Department of Pathology, [address] [place] [address], [facility], [facility] of [facility]ology, [address] [place] [address], [facility], Department of Pathology, [address] [place] [address], DZXC NEEDLE ASPIRATE BY [id number] 13:02:23Medical Cytology Report Case: [id number] Authorizing Provider: Izabela Galvan Jr., Collected: 07/13/2022 02:10 PM Ordering Location: [facility] Received: 07/13/2022 02:42 PM PERIOPERATIVE SERVICES Pathologist: Lopez Reyna MD Specimen: Lymph Node, Lower Paratracheal, Right, Station 4R LYMPH NODE, RIGHT LOWER PARATRACHEAL STATION 4R, EBUS FNA (DIRECT SEMARS AND CELL BLOCK): - NEGATIVEFOR EPITHELIAL MALIGNANCY. - BENIGN ANTHRACOTIC LYMPH NODE FRAGMENTS. Signing Pathologist Direct Phone Line: [phone] signed by Lopez Reyna MD on 07/14/2022 at 1:02 PMPlease also see cytopathology cases: [id number], [id number], [id number], [id number], [id number] y.o M w/ h/o arthritis, anxiet y, depression, COVID-19 pneumonia in 05/2021. CT chest [...] PASSES):- (RECEIVED 13:36) NOT ADEQUATE (REPORTED BY ALICIA GANDHI M.D. ON 07/13/2022 2:47 PM)- (RECEIVED 14:13) SCANT LYMPHOID TISSUE PRESENT (REPORTED BY ALICIA GANDHI M.D. ON 07/13/2022 2:47 PM)Performed.[facility], Department of Pathology, [address] [place] [address], [facility], Department of Pathology, [address] [place] [address], [facility], Department of Pathology, [address] [place] [address], Mrme Needle Aspirate (EBUS)2022-07-13 16:01:20 Test Item Value Reference Range Interpretation Comments Cytology (test code = See Separate Report 2629) [facility]2022-07-13 16:01:20 Test Item Value Reference Range Interpretation Comments Cytology (test code = See Separate Report 2629) [facility])2022-07-13 16:01:20 Test Item Value Reference Range Interpretation Comments Cytology (test code = See Separate Report 2629) [facility]EBUS)2022-07-13 16:01:20 Test Item Value Reference Range Interpretation Comments Cytology (test code = See Separate Report 2629) [facility]EBUS)2022-07-13 16:01:20 Test Item Value Reference Range Interpretation Comments Cytology (test code = See Separate Report 2629) [facility] (EBUS)2022-07-13 16:01:20 Test Item Value Reference Range Interpretation Comments Cytology (test code = See Separate Report 2629) [facility]US)2022-07-13 16:01:20 Test Item Value Reference Range Interpretation Comments Cytology (test code = See Separate Report 2629) [facility] (EBUS)2022-07-13 16:01:20 Test Item Value Reference Range Interpretation Comments Cytology (test code = See Separate Report 2629) [facility] (EBUS)2022-07-13 16:01:20 Test Item Value Reference Range Interpretation Comments Cytology (test code = See Separate Report 2629) [facility] HospitalEB[facility] FNA [id number] 16:01:20 Test Item Value Reference Range Interpretation Comments CYTOLOGY RESULT POINTER See Separate Report (BEAKER) (test code = 2629) EBUS FNA [id number] 16:01:20 Test Item Value Reference Range Interpretation Comments CYTOLOGY RESULT POINTER See Separate Report (BEAKER) (test code = 2629) EBUS FNA [id number] 16:01:20 Test Item Value Reference Range Interpretation Comments CYTOLOGY RESULT POINTER See Separate Report (BEAKER) (test code = 2629) RAD, CHEST, 1 VIEW, NON [id number] 15:54:00Reason for exam:->s/p EBUS, eval for pneumoShould this be performed at the bedside?->Yes [facility] 1955 Sex: MFINAL [...] pneumothorax. No significant interval change. Signed: Justin Bai MDReport Verified Date/Time: 07/13/2022 15:54:29 RAD, CHEST, 1 VIEW, NON [id number] 11:32:00Reason for exam:->lung noduleShould this be performed at the bedside?->Yes [facility] : 1955 Sex: MFINAL [...] pleural effusions. Intact osseous structures. Signed: Hal Shine MDReport Verified Date/Time: 07/13/2022 11:32:27 POC-Glucose meter 2022-07-13 09:22:03 Test Item Value Reference Range Interpretation Comments POC-Glucose Meter (test 94 mg/dL 70-110 : TE STED AT [facility] code = 1538) [address] [facility], [address]70 30: Coach Tour Driver/Techni garth ID = [id number] for AIDA RODARET Lab Interpretation (test Normal code = 83150-2) [facility] HospitalP[facility]Glucose [id number] 09:22:03 Test Item Value Reference Range Interpretation Comments POC-Glucose Meter (test 94 mg/dL 70-110 : TE STED AT [facility] code = 1538) [address] [facility], 770 30: Coach Tour Driver/Techni garth ID = [id number] for AIDA RODARTE Lab Interpretation (test Normal code = 14845-0) [facility]-Glucose [id number] 09:22:03 Test Item Value Reference Range Interpretation Comments POC-Glucose Meter (test 94 mg/dL 70-110 : TE STED AT [facility] code = 1538) [address] [place] [address], 770 30: Coach Tour Driver/Techni garth ID = [id number] for AIDA RODARTE Lab Interpretation (test Normal code = 67648-6) [facility] [facility] [id number] 09:22:03 Test Item Value Reference Range Interpretation Comments POC-Glucose Meter (test 94 mg/dL 70-110 : TE STED AT [facility] code = 1538) [address] [place] [address], 770 30: Coach Tour Driver/Techni garth ID = [id number] for AIDA RODARTE Lab Interpretation (test Normal code = 03457-0) [facility]-Glucose [id number] 09:22:03 Test Item Value Reference Range Interpretation Comments POC-Glucose Meter (test 94 mg/dL 70-110 : TE STED AT [facility] code = 1538) [address] [place] [address], 770 30: Coach Tour Driver/Techni garth ID = [id number] for AIDA RODARTE Lab Interpretation (test Normal code = 17043-1) [facility]-GLUCOSE [id number] 09:22:03 Test Item Value Reference Range Interpretation Comments POC-GLUCOSE METER 94 mg/dL 70-110 : TESTED A T [facility] 6720 (BEAKER) (test code = [facility] Tiesha [facility], 1538) [address]: Coach Tour Driver/Techni garth ID = [id number] for AIDA MEYERS COMPREHENSIVE [employer]OL[employer] [id number] 13:45:01 Test Item Value Reference Range Interpretation [...] decreased 60-89 G3a Mildl y to moderately 45- 59 G3b Moderately to s everely 30-44 G4 Severl y decreased 15-29 G5 Kidney failure <15Reported eGF R is based on the CKD-EPI 2021 equation that d oes not use a race coefficientEsti mated GFR is not as accur ate as Creatinine Shagufta rupal in predicting glom erular filtration rate . Estimated GFR is not appl icable for dialysis patien ts Coach Tour Driver ID - PIAYA LPT/[id number] 13:32:15 Test Item Value Reference Range Interpretation [...] mechanical heart valves.CBC W/PLT COUNT & AUTO [id number] 13:28:04 Test Item Value Reference Range Interpretation [...]
--- NOTE | 2023-03-30 12:58 | EDPHYS ---
Physician Documentation [facility] Name: Ye Coleman Age: 67 yrs Sex: Male : 1955 Arrival Date: 03/30/2023 Time: 12:30 Bed 11 Private MD: ED Physician Tal Carpenter HPI: 03/30 13:02 This 67 yrs old Male presents to ER via Wheelchair with complaints of REACTION rt TO PAIN MEDS. 13:02 Patient with history of lung cancer presents to the ED after starting hydrocodone rt yesterday evening. Patient states he became itchy, nauseated. Patient also reports he has ongoing issue with anxiety, unclear if he is taking any medicines for anxiety or not. He denies any tongue swelling, worsening of his respiratory status although he does state that he has some baseline shortness of breath from his cancer. Denies other acute complaints at this time, symptoms are mild in severity, no other aggravating or alleviating factors.. Historical: - Allergies: 12:47 No Known Allergies; mb9 - PMHx: 12:47 Lung Cancer; neuropathy; mb9 - PSHx: 12:47 Appendectomy; Partial lobectomy - right upper lobe; mb9 - Immunization history:: Adult Immunizations up to date. - Social history:: Smoking status: Patient reports the use of cigarette tobacco products. - Family history:: not pertinent. ROS: 13:02 Constitutional: Negative for fever, chills, and weight loss, Cardiovascular: Negative rt for chest pain, palpitations, and edema, Abdomen/GI: Negative for abdominal pain, nausea, vomiting, diarrhea, and constipation, MS/Extremity: Negative for injury and deformity, 13:02 Respiratory: Positive for shortness of breath, Negative for cough, 13:02 Skin: Positive for Pruritus, negative for discoloration, 13:02 Psych: Positive for anxiety, Negative for suicidal ideation, Exam: 13:02 Constitutional: This is a well developed, well nourished patient who is awake, alert, rt and in no acute distress. Head/Face: Normocephalic, atraumatic. Chest/axilla: Normal chest wall appearance and motion. Nontender with no deformity. No lesions are appreciated. Cardiovascular: Regular rate and rhythm with a normal S1 and S2. No gallops, murmurs, or rubs. Normal PMI, no JVD. No pulse deficits. Respiratory: Lungs have equal breath sounds bilaterally, clear to auscultation and percussion. No rales, rhonchi or wheezes noted. No increased work of breathing, no retractions or nasal flaring. Abdomen/GI: Soft, non-tender, with normal bowel sounds. No distension or tympany. No guarding or rebound. No evidence of tenderness throughout. Skin: Warm, dry with normal turgor. Normal color with no rashes, no lesions, and no evidence of cellulitis. MS/ Extremity: Pulses equal, no cyanosis. Neurovascular intact. Full, normal range of motion. Neuro: Awake and alert, GCS 15, oriented to person, place, time, and situation. Cranial nerves II-XII grossly intact. Motor strength 5/5 in all extremities. Sensory grossly intact. Cerebellar exam normal. Normal gait. Psych: Awake, alert, with orientation to person, place and time. Behavior, mood, and affect are within normal limits. 13:02 ENT: Moist mucous membranes, no lip, tongue swelling. Vital Signs: 12:45 BP 134 / 93; Pulse 105; Resp 18; Temp 97.5; Pulse Ox 100% on 5 lpm NC; Weight 68.04 kg; mb9 Height 9 ft. 7 in. ; Pain 0/10; 12:45 Body Mass Index 7.97 (68.04 kg, 292.1 cm) mb9 12:45 Pain Scale: Adult mb9 MDM: 12:49 Patient medically screened. rt 13:02 Differential Diagnosis Medication induced pruritus, allergic reaction, anaphylaxis. rt Data reviewed: vital signs, nurses notes. Test considered but Not performed: Labs: Stable vital signs, patient with itching, common reaction with opiate use. No evidence for anaphylaxis, labs, imaging not indicated. We will treat patient with hydroxyzine, Zofran. Believe that he may continue to take the hydrocodone at this time. Patient to follow-up as an outpatient.. Care significantly affected by the following chronic conditions: Lung cancer. Counseling: I had a detailed discussion with the patient and/or guardian regarding the historical points, exam findings, and any diagnostic results supporting the discharge/admit diagnosis, the need for outpatient follow up. Administered Medications: No medications were administered Disposition Summary: 03/30/23 12:57 Discharge Ordered Notes: Location: Home rt Problem: new rt Symptoms: are unchanged rt Condition: Stable rt Diagnosis - Pruritus, unspecified rt - Nausea rt Followup: rt - With: Private Physician - When: 5 - 6 days - Reason: Discharge Instructions: - Discharge Summary Sheet rt - Nausea, Adult rt - Pruritus rt Forms: - Medication Reconciliation Form rt - Thank You Letter rt - Antibiotic Education rt - Prescription Opioid Use rt - Patient Portal Instructions rt - Leadership Thank You Letter rt Prescriptions: - ondansetron 4 mg Oral Tablet,disintegrating - take 1 tablet ORAL route every 6 hours As needed for nausea; 30 tablet; rt Refills: 0, Product Selection Permitted - Hydroxyzine HCl 25 mg Oral Tablet - take 1 tablet ORAL route every 6 hours As needed; 30 tablet; Refills: 0, rt Product Selection Permitted Signatures: Amber Dave RN RN mb9 Tal Carpenter MD MD rt
--- NOTE | 2023-03-30 12:58 | ER ---
Nurse's Notes [facility] Name: Ye Coleman Age: 67 yrs Sex: Male : 1955 Arrival Date: 03/30/2023 Time: 12:30 Bed 11 Private MD: Diagnosis: Pruritus, unspecified;Nausea Presentation: 03/30 12:45 Chief complaint: Patient states: "I started taking Hydrocodone last night for pain and mb9 started becoming itchy from the meds.". Coronavirus screen: Vaccine status: Patient reports being unvaccinated. Ebola Screen: No symptoms or risks identified at this time. Initial Sepsis Screen: Does the patient meet any 2 criteria? No. Patient's initial sepsis screen is negative. Does the patient have a suspected source of infection? No. Patient's initial sepsis screen is negative. Risk Assessment: Do you want to hurt yourself or someone else? Patient reports no desire to harm self or others. Onset of symptoms was March 30, 2023. 12:45 Method Of Arrival: Wheelchair mb9 12:45 Acuity: EDMOND 4 mb9 Triage Assessment: 12:47 General: Appears in no apparent distress. Behavior is calm, cooperative. Pain: Denies mb9 pain. EENT: No deficits noted. Neuro: Huerta Agitation-Sedation Scale (RASS): 0 - Alert and Calm Level of Consciousness is awake, alert, obeys commands, Oriented to person, place, time, situation, Appropriate for age. Cardiovascular: Patient's skin is warm and dry. Respiratory: Airway is patent Respiratory effort is even, unlabored, Respiratory pattern is regular, symmetrical, Breath sounds are clear bilaterally. GI: No signs and/or symptoms were reported involving the gastrointestinal system. : No signs and/or symptoms were reported regarding the genitourinary system. Derm: Skin is pink, warm \\T\\ dry. Reports itching. Musculoskeletal: Range of motion: intact in all extremities. Historical: - Allergies: 12:47 No Known Allergies; mb9 - PMHx: 12:47 Lung Cancer; neuropathy; mb9 - PSHx: 12:47 Appendectomy; Partial lobectomy - right upper lobe; mb9 - Immunization history:: Adult Immunizations up to date. - Social history:: Smoking status: Patient reports the use of cigarette tobacco products. - Family history:: not pertinent. Screenin:17 [facility] ED Fall Risk Assessment (Adult) History of falling in the last 3 months, mb9 including since admission No falls in past 3 months (0 pts) Confusion or Disorientation No (0 pts) Intoxicated or Sedated No (0 pts) Impaired Gait No (0 pts) Mobility Assist Device Used No (0 pt) Altered Elimination No (0 pt) Score/Fall Risk Level 0 - 2 = Low Risk Oriented to surroundings, Maintained a safe environment, Educated pt \\T\\ family on fall prevention, incl call for assistance when getting out of bed. Abuse screen: Denies threats or abuse. Nutritional screening: No deficits noted. Tuberculosis screening: No symptoms or risk factors identified. Assessment: 12:48 Reassessment: see triage assessment. mb9 Vital Signs: 12:45 BP 134 / 93; Pulse 105; Resp 18; Temp 97.5; Pulse Ox 100% on 5 lpm NC; Weight 68.04 kg; mb9 Height 9 ft. 7 in. ; Pain 0/10; 12:45 Body Mass Index 7.97 (68.04 kg, 292.1 cm) mb9 12:45 Pain Scale: Adult mb9 ED Course: 12:41 Patient arrived in ED. ts1 12:41 Tal Carpenter MD is Attending Physician. rt 12:47 Triage completed. mb9 12:47 Arm band placed on. mb9 12:48 Bed in low position. Call light in reach. Side rails up X 1. Client placed on mb9 continuous cardiac and pulse oximetry monitoring. NIBP monitoring applied. 13:16 Amber Dave RN is Primary Nurse. mb9 13:17 No provider procedures requiring assistance completed. Patient did not have IV access mb9 during this emergency room visit. Administered Medications: No medications were administered Medication: 13:16 VIS not applicable for this client. mb9 Outcome: 12:57 Discharge ordered by MD. rt 13:17 Discharged to home via wheelchair, with family, mb9 13:17 Condition: stable 13:17 Discharge instructions given to patient, Instructed on discharge instructions, follow up and referral plans. Demonstrated understanding of instructions, follow-up care, medications, Prescriptions given X 2, 13:17 Patient left the ED. mb9 Signatures: Amber Dave RN RN mb9 Tal Carpenter MD MD rt [place], Susu, PAS PAS ts1
[2023-03-30 13:22] VITALS: BP 134/93; TEMP 97.5; O2SAT 100
== END 2023-03-30 13:17 | disposition home or self-care (01) ==
LOC: ER 12:30
DX: L29.9 Pruritus, unspecified (principal); R11.0 Nausea; Z72.0 Tobacco use; Z85.118 Personal history of other malignant neoplasm of bronchus and lung
CPT/HCPCS: 99283

== ENCOUNTER 2023-04-15 09:08 | Emergency (ER) | payer OTHER ==
--- OUTSIDE RECORDS SUMMARY | 2023-04-15 09:15 | XMS REPORT | Continuity of Care Document ---
:1955 Author Organization [facility] t Address [address] [place] [address] [place] [id number] Care Team Providers Name Role Phone ERNST DOTSONEVCONNIE SAENZ Primary Care Physician Unavailable IZABELA GALVAN Attending Clinician Unavailable GARRET DONOVAN Attending Clinician Unavailable Lab, Ang - Db Attending Clinician Unavailable Garret Cochran Attending Clinician FRANCISCO ROSENBERG Attending Clinician Unavailable ISHA, SENDELIEZER K.HTang Attending Clinician Unavailable Isha AMANDA, Sendil K.H. Attending Clinician Anupama Gonsalez MD Attending Clinician Izabela Galvan MD Attending Clinician King Elkins MD Attending Clinician Lauro Galo MD Attending Clinician Francisco Rosenberg Attending Clinician Marco AMANDA, Rohan Guo Attending Clinician Jesús Larsen Attending Clinician Unavailable IZABELA GALVAN Admitting Clinician Unavailable ANUPAMA GONSALEZ Admitting Clinician Unavailable Payers Payer Name Policy Type Policy Number Effective Date Expiration Date S te [employer] MEDICARE [id number] 2021 00:00:00 [place]ICAID [place] [id number] 2022 00:00:00 [employer]/UHC DUAL [id number] 2022 COMP HMO D SNP 00:00:00 Problems Condition Condition Condition Status Onset Resolution Last Treating Co mments Source Name Details Category Date Date Treatment Clinician Date Atypical Atypical Disease Active 2022-06 Unive rs chest pain chest pain 0-31 it y of 00:00: [place] [facility] Easy Easy Disease Active 2022-06 Univers fatigabili fatigabili 0-31 it y of ty ty 00:00: [facility] Branch Weakness Weakness Disease Active 2022-06 Unive rs generalize generalize 0-31 it y of d d 00:00: [place] 00 [facility] Supplement Supplement Disease Active 2022-06 U nivers al oxygen al oxygen 0-31 it[place] dependent dependent 00:[place] [facility] Chronic Chronic Disease Active 2022-06 Univers pain after pain after 0-31 it y of cancer cancer 00:00: [place] treatment treatment 00 [facility] Branch Shortness Shortness Disease Active Uni vers of breath of breath 3-20 ity of 00:00: [address] Lung Lung Disease Recur[facility] cancer n[facility] 3[facility]06 [facility] 00:00: [place] [id number] Center RUL NSCLC RUL NSCLC Disease Recurre [facility] s/p R s/p R nce 2-02 [facility] thoracotom thoracotom 00:00: Me dical y, RUL/RML y, RUL/RML 00 Ce nter bilobectom bilobectom y, MLND y, MLND 08/15/2022 08/15/2022 Malignant Malignant Disease Active 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 00:00: [place] lobe of lobe of 00 Medical right lung right lung Br anch Allergies, Adverse Reactions, Alerts Allergy Allergy Status Severity Reaction(s) Onset Inactive Treating Comm ents Source Name Type Date Date Clinician NO KNOWN Allergy Active [facility] Drug Active Univers ALLERGIE Class ity of S [facility] Social History Social Habit Start Date Stop Date Quantity Comments Source Sexual orientation [facility] Transport [facility] History of tobacco Cigarette Smoker [facility] use [facility] History of Social 2023-04-102023-04-10 Univers ity of function 00:00:00 00:00:00 [facility] History [facility] 2022-08-28 2022-08-[address] [facility] Housing Unable to 00:00:00 00:00:00 Medical Center Pay History [facility] 2022-08-28 2022-08-[address] [facility] Housing Places 00:00:00 00:00:00 Medical Ce nter Lived History [facility] 2022-08-28 2022-08-[address] [facility] Housing Homeless 00:00:00 00:00:00 Medical Center Last Year History [facility] 2022-08-15 2022-08-[address] [facility] Transport Med 00:00:00 00:00:[address] Alcohol intake 2022-08-15 2022-08-15 1.71 /d [facility]00 Medical Center Exposure to 2022-08-04 2022-08-[address] [facility] SARS-CoV-2 (event) 00:00:00 20:08:00 Medica l [place] Cigarettes smoked 2022-07-05 2022-07-[address] [facility] current (pack per 00:00:00 00:00:00 Medical Center day) - Reported Tobacco use and 2022-07-05 2022-07-[address] [facility] exposure 00:00:00 00:00:00 tobacco non-user [facility] Tobacco Comment 2022-07-05 2022-07-05 quit- [address] [facility] 00:00:00 00:00:00 [facility] Center Sex [birth year] At [birth year] Universit y of 00:00:00 00:00:00 [facility] Smoking Status Start Date Stop Date Source Tobacco smoking [facility] xa consumption unknown Medical Bran ch Ex-smoker 2022-07-05 00:00:00 2022-07-[address] [facility] Medical 00:00:00 Center Medications Ordered Filled Start Stop Current Ordering Indication Dosage Frequency Signature Comments Components Source Medication Medication Date Date Medication? Clinician (SIG) Name Name aspirin 81 2022-06 Yes [id number] 81mg Take 1 Univers mg EC 0-31 tablet by ity of tablet 10:38: mouth [place] [id number] every Medical other day. Branch Ibuprofen-D 2022-06 Yes [id number] 1{tbl} Take 1 Univers iphenhydram 0-31 tablet by ity of ine HCl 10:38: mouth [place] 200-25 mg 44 every Medical Cap evening. Branch multivitami 2022-06 Yes 1{tbl} Take 1 Un wagner n tablet 0-31 tablet by ity of 10:38: mouth [place] 44 every Medical morning. Branch aspirin 81 2022-06 Yes [id number] 81mg Take 1 Univers mg EC 0-31 tablet by ity of tablet 10:38: mouth [place] 44 every Medical other day. Branch Ibuprofen-D 2022-06 Yes [id number] 1{tbl} Take 1 Univers iphenhydram 0-31 tablet by ity of ine HCl 10:38: mouth [place] 200-25 mg 44 every Medical Cap evening. Branch multivitami 2022-06 Yes 1{tbl} Take 1 Un wagner n tablet 0-31 tablet by ity of 10:38: mouth [place] 44 every Medical morning. Branch aspirin 81 2022-06 Yes [id number] 81mg Take 1 Univers mg EC 0-31 tablet by ity of tablet 10:38: mouth [place] 44 every Medical other day. [place] Ibuprofen-D 2022-06 Yes [id number] 1{tbl} Take 1 Univers iphenhydram 0-31 tablet by ity of ine HCl 10:38: mouth [place] 200-25 mg 44 every Medical Cap evening. Branch aspirin 81 2022-06 Yes [id number] 81mg Take 1 Univers mg EC 0-31 tablet by ity of tablet 10:38: mouth [place] 44 every Medical other day. [place] Ibuprofen-D 2022-06 Yes [id number] 1{tbl} Take 1 Univers iphenhydram 0-31 tablet by ity of ine HCl 10:38: mouth [place] 200-25 mg 44 every Medical Cap evening. Branch multivitami 2022-06 Yes 1{tbl} Take 1 Un wagner n tablet 0-31 tablet by ity of 10:38: mouth [place] 44 every Medical morning. [place] traMADoL-ac 2022-06 Yes TAKE ONE Un wagner etaminophen 0-16 (1) ity of 37.5-325 mg 00:00: TABLET(S) [place] per tablet 00 BY MOUTH Medic al EVERY SIX Branch HOURS NEEDED. traMADoL-ac 2022-06 Yes TAKE ONE Un [place] etaminophen 0-16 (1) ity of 37.5-325 mg 00:00: TABLET(S) [place] per tablet 00 BY MOUTH Medic al EVERY SIX Branch HOURS NEEDED. traMADoL-ac 2022-06 Yes TAKE ONE Un [place] etaminophen 0-16 (1) ity of 37.5-325 mg 00:00: TABLET(S) [place] per tablet 00 BY MOUTH Medic al EVERY SIX Branch HOURS NEEDED. gabapentin 2022-0 Yes 100mg Take 1 Univ ers 100 mg 9-13 capsule by ity of capsule 00:00: mouth. Medical Branch omeprazole 2022-0 Yes 20mg Take 2 Unive rs 10 mg 9-13 capsules ity of capsule 00:00: by mouth [place] daily. Medical Branch gabapentin 3-0 Yes 100mg Take 1 Univ ers 100 mg 9-13 capsule by ity of capsule 00:00: mouth. Medical Branch omeprazole 2022-0 Yes 20mg Take 2 Unive rs 10 mg 9-13 capsules ity of capsule 00:00: by mouth [place] daily. Medical Branch gabapentin 3-0 Yes 100mg Take 1 Univ ers 100 mg 9-13 capsule by ity of capsule 00:00: mouth. Medical Branch omeprazole 3-0 Yes 20mg Take 2 Unive rs 10 mg 9-13 capsules ity of capsule 00:00: by mouth [place] daily. Medical Branch Ibuprofen-D 2022-0 Yes [id number] 1{tbl} Take 1 Univers iphenhydram 6-21 tablet by ity of ine HCl 10:53: mouth [place] 200-25 mg 26 every Medical Cap evening. Branch Ibuprofen-D 2022-0 Yes [id number] 1{tbl} Take 1 Univers iphenhydram 6-21 tablet by ity of ine HCl 10:53: mouth [place] 200-25 mg 26 every Medical Cap evening. Branch ibuprofen/d 2022-0 2022- No Take by Un [place] iphenhydram 6-21 21 mouth. ity o f ine cit 10:51: 00:00 [place] (IBUPROFEN 22 :00 Medical PM ORAL) Branch ibuprofen/d 2022-0 2022- No Take by Un [place] iphenhydram 6-21 06-21 mouth. ity o f ine cit 10:51: 00:00 [place] (IBUPROFEN 22 :00 Medical PM ORAL) Branch ibuprofen/d 0 2022- No Take by Un [place] iphenhydram 11-29 mouth. ity o f ine cit 10:51: 00:00 [place] (IBUPROFEN 22 :00 Medical PM ORAL) Branch aspirin 81 2022-0 Yes [id number] 81mg Take 1 Univers mg EC 6-21 tablet by ity of tablet 10:50: mouth [place] 18 every Medical other day. Branch aspirin 81 2022-0 Yes [id number] 81mg Take 1 Univers mg EC 6-21 tablet by ity of tablet 10:50: mouth [place] 18 every Medical other day. Branch DULoxetine 2022-0 Yes 30mg QD Take 1 [facility] (CYMBALTA) 3-23 [facility] 30 MG 14:38: (30 mg Medical capsule total) by Center mouth in the morning. aspirin 325 2022-0 Yes 325mg Q.5W Take [address] MG tablet 3-23 tablet [facility] 14:38: (325 mg Medical 09 total) by Center mouth twice a week. multivitami 2022-0 Yes 1{tbl} QD Take [address] n per 3-23 tablet by [facility]ukes tablet 14:38: mouth in Medical 09 the Center morning. DULoxetine 2022-0 Yes 30mg QD Take 1 [facility] (CYMBALTA) 3-23 capsule [facility] 30 MG 14:38: (30 mg Medical capsule total) by Center mouth in the morning. aspirin 325 2022-0 Yes 325mg Q.5W Take [address] MG tablet 3-23 tablet [facility] 14:38: (325 mg Medical 09 total) by Center mouth twice a week. multivitami 2022-0 Yes 1{tbl} QD Take [address] n per 3-23 tablet by [facility]ukes tablet 14:38: mouth in Medical 09 the Center morning. DULoxetine 2022-0 Yes 30mg QD Take 1 [facility] (CYMBALTA) 3-23 capsule [facility] 30 MG 14:38: (30 mg Medical capsule 09 total) by Center mouth in the morning. aspirin 325 2022-0 Yes 325mg Q.5W Take [address] MG tablet 3-23 tablet [facility]ukes 14:38: (325 mg Medical 09 total) by Center mouth twice a week. multivitami Yes 1{tbl} QD Take [address] n per -23 tablet by [facility]ukes tablet 14:38: mouth in Medical 09 the Center morning. vancomycin 2022- No 1000mg Inject [facility] (VANCOCIN) 08-31- 1,000 mg Luke s 1000 mg in 07:15: 00:00 intravenou Medical D5W 100 ML 29 :00 sly. Center [facility] vancomycin 2022-2022- No 1000mg Inject [facility] (VANCOCIN) 08-31- 1,000 mg Luke s 1000 mg in 07:15: 00:00 intravenou Medical D5W 100 ML 29 :00 sly. Center [facility] vancomycin 2022- No 1000mg Inject [facility] (VANCOCIN) 08-31 1,000 mg Luke s 1000 mg in 07:15: 00:00 intravenou Medical D5W 100 ML 29 :00 sly. Center [facility] furosemide 2022-0 2022- No 20mg QD Take [address] (LASIX) 20 08-31-30 tablet (20 [facility] MG tablet 00:00: 23:59 mg total) Me dical 00 :00 by mouth Center in the morning for 7 days. sulfamethox 2022-2022- No 160mg{t Q.5D Take [address] azole-trime 08-31-30 rimetho tablet [facility] thoprim 00:00: 23:59 [...] in the morning for 7 days. sulfamethox 2022- No 160mg{t Q.5D Take 1 [facility] [...] QD Take [address] [facility] (LASIX) 20 -26 08-23 tablet (20 [facility] MG tablet 00:00: 00:00 mg total) Me dical 00 :00 by mouth Center daily for 3 days. furosemide 2022- No 20mg QD Take [address] (LASIX) 20 3-26 08-23 tablet (20 [facility] MG tablet 00:00: 00:00 mg total) Me dical 00 :00 by mouth Center daily for 3 days. furosemide 2022- No 20mg QD Take [address] (LASIX) 20 3-18 -23 tablet (20 [facility] MG tablet 00:00: 00:00 mg total) Me dical 00 :00 by mouth Center daily for 3 days. furosemide 2022- No 20mg QD Take [...] mouth Medical 39 daily. Center lidocaine 2022- No 1{patch Place 1-[address] (LIDODERM) 08-25 } patches [facility] 4 % patch 00:00: 23:59 onto the Med ical 00 :00 skin daily Center as needed (pain) for up to [address] directly over any incisions. lidocaine 2022- No 1{patch Place 1-[address] (LIDODERM) 08-25 } patches [facility] 4 % patch 00:00: 23:59 onto the Med ical 00 :00 skin daily Center as needed (pain) for up to [address] directly over any incisions. lidocaine 2022- No 1{patch Place 1-[address] (LIDODERM) 08-25 } patches [facility] 4 % patch 00:00: 23:59 onto the Med ical 00 :00 skin daily Center as needed (pain) for up to [address] directly over any incisions. lidocaine 2022- No 1{patch Place 1-[address] (LIDODERM) 08-25 } patches [facility] 4 % patch 00:00: 23:59 onto the Med ical 00 :00 skin daily Center as needed (pain) for up to [address] directly over any incisions. acetaminoph 2022- No 1000mg Take [address] en -25 08- tablets [facility] (TYLENOL) 00:00: 23:59 (1,000 mg Me dical 500 MG 00 :00 total) by Center tablet mouth every 6 (six) hours as needed for Pain for up to 10 days. amoxicillin 2022- No 1{tbl} Q.5D Take [address] -clavulanat -09-04 tablet by [facility]es e 00:00: 23:59 mouth 2 Medical (AUGMENTIN) 00 :00 (two) Center 875-125 mg times per tablet daily for 10 days. oxyCODONE 2023-0 2023- No 5mg Take 1 [facility] (ROXICODONE 3-17 -27 tablet (5 [facility] ) 5 MG 00:00: 23:59 mg total) Medic al immediate 00 :00 by mouth Center release every 4 tablet (four) hours as needed for up to 10 days. Max Daily Amount: 30 mg acetaminoph 2023-0 2023- No 1000mg Take [address] en 3-17 -27 tablets [facility] (TYLENOL) 00:00: 23:59 (1,000 mg Me dical 500 MG 00 :00 total) by Center tablet mouth every 6 (six) hours as needed for Pain for up to 10 days. amoxicillin 2023-0 2023- No 1{tbl} Q.5D Take [address] -clavulanat 3-17 -27 tablet by Ruby kes e 00:00: 23:59 mouth 2 Medical (AUGMENTIN) 00 :00 (two) Center 875-125 mg times per tablet daily for 10 days. oxyCODONE 2023-0 2023- No 5mg Take 1 [facility] (ROXICODONE 3-17 -27 tablet (5 [facility] ) 5 MG 00:00: 23:59 mg total) Medic al immediate 00 :00 by mouth Center release every 4 tablet (four) hours as needed for up to 10 days. Max Daily Amount: 30 mg acetaminoph 2023-0 2023- No 1000mg Take [address] en 3-17 -27 tablets [facility] (TYLENOL) 00:00: 23:59 (1,000 mg Me dical 500 MG 00 :00 total) by Center tablet mouth every 6 (six) hours as needed for Pain for up to 10 days. amoxicillin 2023-0 2023- No 1{tbl} Q.5D Take [address] -clavulanat 3-17 -27 tablet by Ruby kes e 00:00: 23:59 [...] Pain for up to 10 days. amoxicillin 2022-2022- No 1{tbl} Q.5D Take 1 C HI [...] Max Daily Amount: 30 mg gabapentin 2022- No 100mg [id number] Take [address] [facility] [address] (NEURONTIN) 08-25 [id number] capsule [facility] 100 MG 00:00: 23:59 3D [...] 7 days. gabapentin 2022-0 2022- No 100mg Q.[id number] Take [address] [facility] (NEURONTIN) 08-25 [id number] capsule [facility] 100 MG 00:00: 23:59 3D (100 mg Medical capsule 00 :00 total) by Center mouth 3 (three) times daily for 7 days. polyethylen 2022- No 17g Take [address] e glycol 08-25-24 by mouth [facility] (GLYCOLAX) 00:00: 23:59 daily as Me dical 17 gram 00 :00 needed Center packet (constipat ion) for up to 7 days. gabapentin 2022-3- No 100mg Q.[id number] Take [address] (NEURONTIN) 08-25- [id number] capsule [facility] 100 MG 00:00: 23:59 3D (100 mg Medical capsule 00 :00 total) by Center mouth 3 (three) times daily for 7 days. polyethylen 2022-2022- No 17g Take [address] e glycol 08-25-24 by mouth [facility] (GLYCOLAX) 00:00: 23:59 daily as Me dical 17 gram 00 :00 needed Center packet (constipat ion) for up to 7 days. gabapentin 2022-2022- No 100mg Q.[id number] Take [address] (NEURONTIN) 08-25- [id number] capsule [facility] 100 MG 00:00: 23:59 3D [...] 30 MG 20:05: daily. Medical capsule 52 [place] aspirin 325 2022-0 Yes 325mg Q.5W Take [address] MG tablet 3-06 mg by [facility]ukes 20:05: mouth Medical 52 twice a Center week. multivitami Yes 1{tbl} QD Take [address] n per 3-06 tablet by [facility]ukes tablet 20:05: mouth Medical 52 daily. [place] DULoxetine 0 Yes 30mg QD Take [address] (CYMBALTA) 2-02 by mouth [facility] 30 MG 16:28: daily. Medical capsule 00 [place] aspirin 325 2023-0 Yes 325mg Q.5W Take [address] MG tablet 2-02 mg by [facility]ukes 16:28: mouth Medical 00 twice a [place] week. multivitami 0 Yes 1{tbl} QD Take [address] n per 2-02 tablet by [facility]ukes tablet 16:28: mouth Medical 00 daily. [place] DULoxetine Yes 30mg QD Take [address] (CYMBALTA) 2-02 by mouth [facility] 30 MG 16:28: daily. Medical capsule 00 [place] aspirin 325 0 Yes 325mg Q.5W Take [address] MG tablet 2-02 mg by [facility]ukes 16:28: mouth Medical 00 twice a [place] week. multivitami 0 Yes 1{tbl} QD Take [address] n per 2-02 tablet by [facility]ukes tablet 16:28: mouth Medical 00 daily. [place] DULoxetine Yes 30mg QD Take [address] (CYMBALTA) 2-02 by mouth [facility] 30 MG 16:28: daily. Medical capsule 00 [place] aspirin 325 0 Yes 325mg Q.5W Take [address] MG tablet 2-02 mg by [facility]ukes 16:28: mouth Medical 00 twice a [place] week. multivitami 0 Yes 1{tbl} QD Take [address] n per 2-02 tablet by [facility]ukes tablet 16:28: mouth Medical 00 daily. [place] DULoxetine Yes 30mg QD Take [address] (CYMBALTA) 2-02 by mouth [facility] 30 MG 16:28: daily. Medical capsule 00 [place] aspirin 325 0 Yes 325mg Q.5W Take [address] MG tablet 2-02 mg by [facility]ukes 16:28: mouth Medical 00 twice a [place] week. multivitami 0 Yes 1{tbl} QD Take [address] n per 2-02 tablet by [facility]ukes tablet 16:28: mouth Medical 00 daily. [place] acetaminoph 0 2022- No 1000mg Take [address] en 2-02 02-12 tablets [facility] (TYLENOL) 00:00: 23:59 (1,000 mg Me dical 500 MG 00 :00 total) by Center tablet mouth every 6 (six) hours as needed for Pain for up to 10 days. acetaminoph 2023-0 2023- No 1000mg Take [address] en 2-02 02-12 tablets [facility] (TYLENOL) 00:00: 23:59 (1,000 mg Me dical 500 MG 00 :00 total) by Center tablet mouth every 6 (six) hours as needed for Pain for up to 10 days. acetaminoph 2023-0 2023- No 1000mg Take [address] en 2-02 02-12 tablets [facility] (TYLENOL) 00:00: 23:59 (1,000 mg Me dical 500 MG 00 :00 total) by Center tablet mouth every 6 (six) hours as needed for Pain for up to 10 days. acetaminoph 2023-0 2023- No 1000mg Take [address] en 2- 02-12 tablets [facility] (TYLENOL) 00:00: 23:59 (1,000 mg Me dical 500 MG 00 :00 total) by Center tablet mouth every 6 (six) hours as needed for Pain for up to 10 days. acetaminoph 2023-0 2023- No 1000mg Take [address] en 2-02 02-12 tablets [facility] (TYLENOL) 00:00: 23:59 (1,000 mg Me dical 500 MG 00 :00 total) by Center tablet mouth every 6 (six) hours as needed for Pain for up to 10 days. acetaminoph 2023-0 2023- No 1000mg Take [address] en 2-02 02-12 tablets [facility] (TYLENOL) 00:00: 23:59 (1,000 mg Me dical 500 MG 00 :00 total) by Center tablet mouth every 6 (six) hours as needed for Pain for up to 10 days. acetaminoph 2023-0 2023- No 1000mg Take [address] en 2-02 02-12 tablets [facility] (TYLENOL) 00:00: 23:59 (1,000 mg Me dical 500 MG 00 :00 total) by Center tablet mouth every 6 (six) hours as needed for Pain for up to 10 days. acetaminoph 2023-0 2023- No 1000mg Take [address] en 2-02 02-12 tablets [facility] (TYLENOL) 00:00: 23:59 (1,000 mg Me dical 500 MG 00 :00 total) by Center tablet mouth every 6 (six) hours as needed for Pain for up to 10 days. acetaminoph 2022- 1000mg Take [address] en 07-13 02-12 tablets [facility] (TYLENOL) 00:00: 23:59 (1,000 mg Me dical 500 MG 00 :00 total) by Center tablet mouth every 6 (six) hours as needed for Pain for up to 10 days. DULoxetine 2021-06 Yes 30mg Take 1 Unive rs 30 mg 2-12 capsule by ity of capsule 00:00: mouth [place] 00 daily. Medical Branch DULoxetine 2021-06 Yes 30mg Take 1 Unive rs 30 mg 2-12 capsule by ity of capsule 00:00: mouth 00 daily. Medical Branch DULoxetine 2021-06 Yes 30mg Take 1 Unive rs 30 mg 2-12 capsule by ity of capsule 00:00: mouth [place] 00 daily. [facility] Vital Signs Vital Name Observation Time Observation Value Comments Source Oxygen saturation 2023-04-10 92 /min 92% on oxygen [facility] y of in Arterial blood 17:57:00 [facility] by Pulse oximetry [place] Systolic blood 2023-04-10 134 mm[Hg] University of pressure 15:39:00 [facility] Diastolic blood 2023-04-10 81 mm[Hg] University o f pressure 15:39:00 [facility] Heart rate 2023-04-10 96 /min [facility] 15:39:00 [facility] Body height 2023-04-10 165.1 cm University 15:39:00 [facility] Body weight 2023-04-10 68.266 kg University 15:39:00 [facility] BMI 2023-04-10 25.04 kg/m2 University 15:39:00 [facility] Systolic blood 2022-11-29 125 mm[Hg] University of pressure 15:46:00 [facility] Diastolic blood 2022-11-29 76 mm[Hg] University o f pressure 15:46:00 [facility] Heart rate 2022-11-29 94 /min [facility] 15:46:00 [facility] Respiratory rate 2022-11-29 20 /min [facility] 15:46:00 [facility] Body height 2022-11-29 165.1 cm [facility] 15:46:00 [facility] Body weight 2022-11-29 63.005 kg University of 15:46:00 [facility] BMI 2022-11-29 23.11 kg/m2 University of 15:46:00 [facility] Oxygen saturation 2022-11-29 93 /min [place] of in Arterial blood 15:46:00 [facility] bella by Pulse oximetry Branch Systolic blood 2022-11-29 125 mm[Hg] University of pressure 15:46:00 [facility] Diastolic blood 2022-11-29 76 mm[Hg] [place] o f pressure 15:46:00 [facility] Heart rate 2022-11-29 94 /min University of 15:46:00 [facility] Respiratory rate 2022-11-29 20 /min University 15:46:00 [facility] Body height 2022-11-29 165.1 cm University 15:46:00 [facility] Body weight 2022-11-29 63.005 kg University 15:46:00 [facility] BMI 2022-11-29 23.11 kg/m2 University 15:46:00 [facility] Oxygen saturation 2022-11-29 93 /min [place] of in Arterial blood 15:46:00 [facility] by Pulse oximetry Branch HEIGHT 2022-08-28 167.6 cm 03:25:56 WEIGHT 2022-08-28 68.04 kg 03:25:56 HEIGHT 2022-08-28 167.6 cm 03:25:56 WEIGHT 2022-08-28 68.04 kg 03:25:56 WEIGHT 2022-08-24 68.6 kg 08:00:00 WEIGHT 2022-08-23 [...] 14:08:00 WEIGHT 2022-08-09 70.171 kg 14:08:00 HEIGHT 2022-07-13 165.1 cm 09:12:00 HEIGHT 2022-07-13 165.1 cm 08:51:00 WEIGHT 2022-07-13 70.126 kg 08:51:00 HEIGHT 2022-07-05 165.1 cm 11:17:00 WEIGHT 2022-07-05 69.854 kg 11:17:00 HEIGHT 2022-07-13 165.1 cm 09:12:00 HEIGHT 2022-07-13 165.1 cm 08:51:00 WEIGHT 2022-07-13 70.126 kg 08:51:00 HEIGHT 2022-07-05 165.1 cm 11:17:00 WEIGHT 2022-07-05 69.854 kg 11:17:00 Heart rate 2022-08-31 85 /min [facility] 08:54:00 [facility] Respiratory rate 2022-08-31 18 /min [facility] 04:33:48 [facility] Oxygen saturation 2022-08-31 100 /min [facility] in Arterial blood 04:33:48 [facility] nter by Pulse oximetry Body temperature 2022-08-[address] 04:32:58 [facility] Systolic blood 2022-08-31 122 mm[Hg] [facility] pressure 04:32:30 [facility] Diastolic blood 2022-08-31 65 mm[Hg] [facility] pressure 04:32:30 [facility] Body height 2022-08-[address] [facility] 03:25:56 [facility] Body weight 2022-08-[address] [facility] 03:25:56 [facility] BMI 2022-08-28 24.21 kg/m2 [facility] 03:25:56 [facility] Heart rate 2022-08-25 90 /min [facility] 16:00:00 Medical Center Systolic blood 2022-08-25 117 mm[Hg] [facility] pressure 15:07:00 Medical Center Diastolic blood 2022-08-25 67 mm[Hg] [facility] pressure 15:07:00 [facility] Body temperature 2022-08-[address] [facility] 15:07:00 [facility] Respiratory rate 2022-08-25 18 /min [facility] 15:07:00 Medical Center Oxygen saturation 2022-08-25 98 /min [facility] in Arterial blood 15:07:00 Medical Ce nter by Pulse oximetry Body weight 2022-08-[address] [facility] 08:00:00 [facility] BMI 2022-08-24 25.17 kg/m2 [facility] 08:00:00 [place] [facility] Heart rate 2022-08-15 70 /min [facility] 05:15:00 [facility] Systolic blood 2022-08-15 127 mm[Hg] [facility] pressure 05:00:00 [facility] Diastolic blood 2022-08-15 75 mm[Hg] [facility] pressure 05:00:00 [facility] Body temperature 2022-08-[address] [facility] 05:[facility]00 [facility] Respiratory rate 2022-08-15 16 /min [facility] 05:[facility]00 [facility] Oxygen saturation 2022-08-15 99 /min [facility] Arterial blood 05:00:00 Medical Ce nter by Pulse oximetry Body height 2022-08-[address] [facility] 14:08:00 [facility] Body weight 2022-08-[address] [facility] 14:08:00 [facility] BMI 2022-08-09 25.74 kg/m2 [facility] 14:08:00 [facility] Heart rate 2022-07-13 78 /min [facility] 15:30:00 [facility] Respiratory rate 2022-07-13 17 /min [facility] 15:30:00 [facility] Oxygen saturation 2022-07-13 97 /min [facility] Arterial blood 15:30:00 Medical Ce nter by Pulse oximetry Systolic blood 2022-07-13 104 mm[Hg] [facility] pressure 15:15:00 [facility] Diastolic blood 2022-07-13 67 mm[Hg] [facility] pressure 15:15:00 [facility] Body temperature 2022-07-13 36.44 Tarah [facility] 14:35:00 [facility] Body height 2022-07-13 165.1 cm [facility] 09:12:00 [facility] Body weight 2022-07-13 70.126 kg [facility] 08:51:00 [facility] BMI 2022-07-13 25.73 kg/m2 [facility] 08:51:00 [facility] Procedures Procedure Date / Time Performing Clinician Source Performed HB ECG ROUTINE & RHYTHM 2022-11-29 15:43:06 Georgia Buckner [facility] XR CHEST 1 VIEW PORTABLE 2022-08-31 07:07:00 Deanna Jules ea [facility] XR CHEST 1 VIEW PORTABLE 2022-08-30 08:12:00 Deanna Jules ea [facility] XR CHEST 1 VIEW PORTABLE 2022-08-29 07:30:00 Deanna Jules ea [facility] BASIC METABOLIC PANEL 2022-08-29 03:31[facility]00 [facility] AUTO 2022-08-29 03:31:00 Jennifer [facility] CBC W/PLT COUNT & AUTO 2022-08-29 03:31[facility]00 [facility] 2022-08-28 07:15:00 Anupama Gonsalez [facility] CBC (HEMOGRAM ONLY) 2022-08-28 05:43:00 Anupama Gonsalez [facility] BASIC METABOLIC PANEL 2022-08-28 05:43:00 Anupama Gonsalez [facility] PT/APTT 2022-08-25 11:28:00 Sondra Shook [facility] XR CHEST 1 VIEW PORTABLE 2022-08-25 07:09:[address] [facility] BASIC METABOLIC PANEL 2022-08-25 04:09:00 Sondra Shook [facility] MAGNESIUM 2022-08-25 04:09:00 [facility] & AUTO 2022-08-25 04:09:00 [facility] W/[facility]T COUNT & AUTO 2022-08-25 04:09:00 [facility] 2022-08-24 08:59:[address] [facility] CONTRAST [place] XR CHEST 1 VIEW PORTABLE 2022-08-24 06:56:[address] [facility] BASIC METABOLIC PANEL 2022-08-24 03:53:00 Sondra Shook [facility] MAGNESIUM 2022-08-24 03:53:00 [facility] W/[facility]T COUNT & AUTO 2022-08-24 03:53:00 [facility] CBC W/PLT COUNT & AUTO 2022-08-24 03:53:00 [facility] (CELLAVISION MANUAL DIFF) 2022-08-24 03:53:00 Sondra Shook [facility] XR CHEST 1 VIEW PORTABLE 2022-08-23 12:17:00 Deanna Jules [facility] BEDSIDE Center XR CHEST 1 VIEW PORTABLE 2022-08-23 06:57:00 [facility]IC METABOLIC PANEL 2022-08-23 03:39:00 Sondra Shook [facility] MAGNESIUM 2022-08-23 03:39:00 [facility] W/PLT COUNT & AUTO 2022-08-23 03:39:00 [facility] CBC W/PLT COUNT & AUTO 2022-08-23 03:39:00 Sondra Shook [facility] (CELLAVISION MANUAL DIFF) 2022-08-23 03:39:00 [facility] 2022-08-22 13:29:00 Sondra Shook [facility] / BEDSIDE [facility] XR CHEST 1 VIEW PORTABLE 2022-08-22 08:18:00 Sondra Shook [facility] / B[facility]SIDE [facility] BASIC METABOLIC PANEL 2022-08-22 04:43:00 [facility] MAG[facility] 2022-08-22 04:43:00 Sondra Shook [facility] CBC W/PLT COUNT & AUTO 2022-08-22 04:43:00 Sondra Shook [facility] CBC W/PLT COUNT & AUTO 2022-08-22 04:43:00 Sondra Shook [facility] XR CHEST 1 VIEW PORTABLE 2022-08-21 06:39:00 Sonrda Shook [facility] / [facility]IDE [facility] BASIC METABOLIC PANEL 2022-08-21 03:48:00 Sondra Shook [facility] MAGNESIUM 2022-08-21 03:48:00 Sondra Shook [facility] CBC W/PLT COUNT & AUTO 2022-08-21 03:48:00 Sondra Shook [facility] DIFFERENTIAL [facility] CBC W/PLT COUNT & AUTO 2022-08-21 03:48:00 Sondra Shook [facility] DIFFERENTIAL [facility] XR CHEST 1 VIEW PORTABLE 2022-08-20 07:28:00 Sondra Shook [facility]IDE [facility] BASIC METABOLIC PANEL 2022-08-20 05:04:00 Sondra Shook [facility] MAGNESIUM 2022-08-20 05:04:00 Sondra Shook [facility] CBC W/PLT COUNT & AUTO 2022-08-20 05:04:00 [facility] CBC W/PLT COUNT & AUTO 2022-08-20 05:04:00 Sondra Shook [facility] DIFFERENTIAL [facility] PREPARE LEUKO-REDUCED RBC 2022-08-19 23:54:00 [facility]IEW PORTABLE 2022-08-19 07:09:00 Sondra Shook [facility] B[facility]SIDE [facility] CBC W/PLT COUNT & AUTO 2022-08-19 04:21:00 Sondra Shook [facility] DIFFERENTIAL [facility] CBC W/PLT COUNT & AUTO 2022-08-19 04:21:00 Sondra Shook [facility]ENTIAL [facility] BASIC METABOLIC PANEL 2022-08-19 04:20:00 Sondra Shook [facility] MAGNESIUM 2022-08-19 04:20:00 Sondra Shook [facility] TRANSFUSE LEUKO-REDUCED 2022-08-18 12:30:00 Sondra Shook [facility] RED BLOOD CELLS [facility] XR CHEST 1 VIEW PORTABLE 2022-08-18 08:24:00 Sondra Shook [facility] B[facility]IDE [facility] BASIC METABOLIC PANEL 2022-08-18 04:03:00 Sondra Shook [facility] MAGNESIUM 2022-08-18 04:03:00 Sondra Shook [facility] CBC W/PLT COUNT & AUTO 2022-08-18 04:03:00 Sondra Shook [facility] DIFFERENTIAL [facility] CBC W/PLT COUNT & AUTO 2022-08-18 04:03:00 Sondra Shook [facility] POCT-GLUCOSE METER 2022-08-17 17:38:00 Izabela Galvan [facility] POCT-GLUCOSE METER 2022-08-17 11:43:00 Izabela Galvan [facility] POCT-GLUCOSE METER 2022-08-17 08:43:00 Izabela Galvan [facility] BASIC METABOLIC PANEL 2022-08-17 03:57:00 Boone, [facility] MAGNESIUM 2022-08-17 03:57:00 Boone [facility] CBC W/PLT COUNT & AUTO 2022-08-17 03:57:00 Boone [facility] CBC W/PLT COUNT & AUTO 2022-08-17 03:57:00 [facility] (CELLAVISION MANUAL DIFF) 2022-08-17 03:57:00 Luis Garciaardmorealpesh [facility] XR CHEST 1 VIEW PORTABLE 2022-08-17 01:55:00 [facility] POCT-GLUCOSE METER 2022-08-17 00:36:00 Izabela Galvan [facility] POCT-GLUCOSE METER 2022-08-16 17:33:00 Izabela Galvan [facility] POCT-GLUCOSE METER 2022-08-16 11:23:00 Izabela Galvan [facility] BLOOD GAS, ARTERIAL 2022-08-16 03:39:00 QuiaRonaldo mckeon [facility] BASIC METABOLIC PANEL 2022-08-16 03:38:00 Boone [facility] MAGNESIUM 2022-08-16 03:38:00 Boone [facility] CALCIUM, IONIZED 2022-08-16 03:38:00 Magda Avery [facility] CBC W/PLT COUNT & AUTO 2022-08-16 03:36:00 [facility] CBC W/PLT COUNT & AUTO 2022-08-16 03:36:00 Katya Garcia [facility] XR CHEST 1 VIEW PORTABLE 2022-08-16 00:44:00 [facility]EMOGLOBIN AND HEMATOCRIT 2022-08-16 00:28:00 Magda Avery [facility] POCT-GLUCOSE METER 2022-08-16 00:28:00 Mandy [facility] PHOSPHORUS 2022-08-15 16:47:00 [facility]NESI[facility] 2022-08-15 16:47:00 [facility] POCT-GLUCOSE METER 2022-08-15 16:46:00 Mandy [facility] XR CHEST 1 VIEW PORTABLE 2022-08-15 15:31:00 [facility] CBC (HEMOGRAM ONLY) 2022-08-15 15:27:00 [facility] BASIC METABOLIC PANEL 2022-08-15 15:27:00 [facility] PT/APTT 2022-08-15 15:27:00 [facility] CALCIUM, IONIZED 2022-08-15 15:27:00 [facility] RBC 2022-08-15 15:14:00 [facility] PREPARE PLASMA 2022-08-15 15:14:00 [facility] RRL CRITICAL LABS 2022-08-15 14:12:29 [facility] (ABG,NA,K,H&H,GLUCOSE) [place] CALCIUM, IONIZED 2022-08-15 14:12:29 [facility] BLOOD GAS, ARTERIAL 2022-08-15 14:12:29 [facility] SODIUM NA-STAT LAB 2022-08-15 14:12:29 [facility] POTASSIUM-STAT LAB 2022-08-15 14:12:29 [facility] GLUCOSE-STAT LAB 2022-08-15 14:12:29 [facility] HGB/HCT (H&H) - STAT LAB 2022-08-15 14:12:29 [facility] RRL CRITICAL LABS 2022-08-15 13:12:23 [facility] (ABG,NA,K,H&H,GLUCOSE) Center CALCIUM, IONIZED 2022-08-15 13:12:23 [facility] LACTIC ACID, ARTERIAL 2022-08-15 13:12:23 [facility] BLOOD GAS, ARTERIAL 2022-08-15 13:12:23 [facility] SODIUM NA-STAT LAB 2022-08-15 13:12:23 [facility] POTASSIUM-STAT LAB 2022-08-15 13:12:23 [facility] GLUCOSE-STAT LAB 2022-08-15 13:12:23 [facility] HGB/HCT (H&H) - STAT LAB 2022-08-15 13:12:23 [facility] RRL CRITICAL LABS 2022-08-15 12:00:14 [facility] (ABG,NA,K,H&H,GLUCOSE) Center CALCIUM, IONIZED 2022-08-15 12:00:14 [facility] BLOOD GAS, ARTERIAL 2022-08-15 12:00:14 [facility] SODIUM NA-STAT LAB 2022-08-15 12:00:14 [facility] POTASSIUM-STAT LAB 2022-08-15 12:00:14 [facility] GLUCOSE-STAT LAB 2022-08-15 12:00:14 [facility] HGB/HCT (H&H) - STAT LAB 2022-08-15 12:00:14 [facility] RRL CRITICAL LABS 2022-08-15 10:56:45 [facility] (ABG,NA,K,H&H,GLUCOSE) [place] CALCIUM, IONIZED 2022-08-15 10:56:45 [facility] BLOOD GAS, ARTERIAL 2022-08-15 10:56:45 [facility] SODIUM NA-STAT LAB 2022-08-15 10:56:45 [facility] POTASSIUM-STAT LAB 2022-08-15 10:56:45 [facility] GLUCOSE-STAT LAB 2022-08-15 10:56:45 [facility] HGB/HCT (H&H) - STAT LAB 2022-08-15 10:56:45 [facility] ANESTHESIA EPIDURAL BLOCK 2022-08-15 10:08:39 [facility] RRL CRITICAL LABS 2022-08-15 09:50:54 [facility] (ABG,NA,K,H&H,GLUCOSE) [place] CALCIUM, IONIZED 2022-08-15 09:50:54 [facility] BLOOD GAS, ARTERIAL 2022-08-15 09:50:54 [facility] SODIUM NA-STAT LAB 2022-08-15 09:50:54 [facility] POTASSIUM-STAT LAB 2022-08-15 09:50:54 [facility] GLUCOSE-STAT LAB 2022-08-15 09:50:54 [facility] HGB/HCT (H&H) - STAT LAB 2022-08-15 09:50:54 [facility] TISSUE EXAM 2022-08-15 09:30:00 Izabela Galvan [facility] PREPARE RBC 2022-08-15 09:03:00 Izabela Galvan [facility] PREPARE PLASMA 2022-08-15 09:03:00 Izabela Galvan [facility] THORACOTOMY 2022-08-15 07:43:00 Izabela Galvan [facility] LOBECTOMY, LUNG, OPEN 2022-08-15 07:43:00 Izabela Galvan [facility] BRONCHOSCOPY 2022-08-15 07:43:00 Izabela Galvan [facility] THORACOSCOPY, WITH 2022-08-15 07:43:00 Izabela Galvan [facility] LYMPHADENECTOMY [place] RESECTION, LUNG, 2022-08-15 07:43:00 Izabela Galvan [facility] THORACOTOMY APPROACH Center THORACOTOMY 2022-08-15 07:30:00 Izabela Galvan [facility] LOBECTOMY, LUNG, OPEN 2022-08-15 07:30:00 Izabela Galvan [facility] BRONCHOSCOPY 2022-08-15 07:30:00 Izabela Galvan [facility] THORACOSCOPY, WITH 2022-08-15 07:30:00 Izabela Galvan [facility] RESECTION, LUNG, 2022-08-15 07:30:00 Izabela Galvan [facility] THORACOTOMY APPROACH Center BASIC METABOLIC PANEL 2022-08-15 03:25:00 Deanna Jules [facility] MAGNESIUM 2022-08-15 03:25:00 Deanna Jules [facility] PHOSPHORUS 2022-08-15 03:25:00 Deanna Jules [facility] SARS-COV2/RT-PCR ([facility] & 2022-08-15 02:18:00 Samm Rodriguez [facility] REF LABS) Center CBC W/PLT COUNT & AUTO 2022-08-15 02:02:00 Deanna Jules [facility] DIFFERENTIAL Center CBC W/PLT COUNT & AUTO 2022-08-15 02:02:00 Deanna Jules [facility] DIFFERENTIAL Center CT CHEST WITH IV CONTRAST 2022-08-14 23:02:00 Izaiah Fleming [facility] BASIC METABOLIC PANEL 2022-08-14 21:07:00 Izabela Galvan [facility] CBC W/PLT COUNT & AUTO 2022-08-09 14:07:00 Honorio [facility] COMPREHENSIVE METABOLIC 2022-08-09 14:07:00 [facility] PANEL [place] PT/APTT 2022-08-09 14:07:00 [facility] ABORH, MANUAL 2022-08-09 14:07:00 [facility] CBC W/PLT COUNT & AUTO 2022-08-09 14:07:00 [facility] NM LUNG QUANTITATIVE 2022-08-09 12:06:00 Francisco Rosenberg [facility] DIFFERENTIAL FUNCTION Center VENTILATION / PERFUSION XR CHEST 1 VIEW PORTABLE 2022-07-13 15:21:00 Sondra Shook [facility] / BEDSIDE [facility] EBUS FNA REQUEST 2022-07-13 14:10:00 Izabela Galvan [facility] FINE NEEDLE ASPIRATE BY 2022-07-13 14:10:00 [facility] EBUS Center EBUS FNA REQUEST 2022-07-13 14:09:00 Izabela Galvan [facility] FINE NEEDLE ASPIRATE BY 2022-07-13 14:09:00 Izabel[facility] Galvan [facility] EBUS Center BRONCHOSCOPY 2022-07-13 12:36:00 Izabela Galvan [facility] ENDOBRONCHIAL ULTRASOUND, 2022-07-13 12:36:00 Izabela Galvan [facility] DURING DIAGNOSTIC Center BRONCHOSCOPY XR CHEST 1 VIEW PORTABLE 2022-07-13 11:20:00 Sondra Shook [facility] / BEDSIDE [facility], MANUAL 2022-07-13 09:20:00 Jade Larsen [facility] POCT-GLUCOSE METER 2022-07-13 09:09:00 Izabela Galvan [facility] ECG 12-LEAD 2022-07-10 13:07:30 [facility] ECG 12-LEAD 2022-07-10 13:07:30 Unknown, [facility] CBC W/PLT COUNT & AUTO 2022-07-10 12:58:00 Selvin Olmedo [facility] COMPREHENSIVE METABOLIC 2022-07-10 12:58:00 Honor[facility] PANEL Center PT/APTT 2022-07-10 12:58:00 Selvin Olmedo [facility] ABORH, MANUAL 2022-07-10 12:58:00 [facility] CBC W/PLT COUNT & AUTO 2022-07-10 12:58:00 Honorio [facility] Plan of Care Planned Activity [...] [facility] 00:00:00 (Season Ended) [code = Medic al Center INFLUENZA VACCINE (Season Ended)] Future Scheduled 2023-02-[address] [facility] 00:00:00 (Season Ended) [code = Medic al Center INFLUENZA VACCINE (Season Ended)] Future Scheduled 2023-02-[address] [facility] 00:00:00 (Season Ended) [code = Medic al Center INFLUENZA VACCINE (Season Ended)] Future Scheduled [...] screening Medical C enter (procedure) [code = 577644681] Future Scheduled [address] [facility] Test 00:00:00 aneurysm screening Medical C enter (procedure) [code = 524574144] Future Scheduled [address] [facility] 00:00:00 aneurysm screening Medical C enter (procedure) [code = 794641189] Future Scheduled [address] [facility] 00:00:00 aneurysm screening Medical C enter (procedure) [code = 010849914] Future Scheduled [address] [facility] 00:00:00 aneurysm screening Medical C enter (procedure) [code = 330664438] Future Scheduled [address] [facility] 00:00:00 aneurysm screening Medical C enter (procedure) [code = 255272464] Future Scheduled [address] [facility] 00:00:00 aneurysm screening Medical C enter (procedure) [code = 381481951] Future Scheduled [address] [facility] 00:00:00 aneurysm screening Medical C enter (procedure) [code = 576107942] Future Scheduled [address] [facility] 00:00:00 aneurysm screening Medical C enter (procedure) [code = 026164069] Future Scheduled 2003 SHINGLES VACCINES (1 of [...] [facility] Test 00:00:00 [code = CT Colonography [facility] Center (combo)] Future Scheduled 1953 Screening for malignant [facility] 00:00:00 neoplasm of colon Medical Ce nter (procedure) [code = 956091799] Future Scheduled 1953 Screening for malignant [facility] 00:00:00 neoplasm of colon Medical Ce nter (procedure) [code = 581601801] Future Scheduled 1953 Screening for malignant [facility] 00:00:00 neoplasm of colon Medical Ce nter (procedure) [code = 903975708] Future Scheduled 1953 Screening for malignant [facility] 00:00:00 neoplasm of colon Medical Ce nter (procedure) [code = 241967959] Future Scheduled 1953 Sigmoidoscopy [facility]code [facility] 00:00:00 [code = CT Colonography [facility] Center (combo)] Future Scheduled 1953 Screening for malignant [facility] 00:00:00 neoplasm of colon Medical Ce nter (procedure) [code = 499656820] Future Scheduled 1953 Screening for malignant [facility] 00:00:00 neoplasm of colon Medical Ce nter (procedure) [code = 347177686] Future Scheduled 1953 Screening for malignant [facility] 00:00:00 neoplasm of colon Medical Ce nter (procedure) [code = 978939008] Future Scheduled 1953 Screening for malignant [facility] 00:00:00 neoplasm of colon Medical Ce nter (procedure) [code = 508852770] Future Scheduled 1953 Sigmoidoscopy [code = [facility] Sigmoidoscopy] Medical Cente r Future Scheduled 1953 CT Colonography (combo) [facility] 00:00:00 [code = CT Colonography [facility] Center (combo)] Future Scheduled 1953 Screening for malignant [facility] 00:00:00 neoplasm of colon Medical Ce nter (procedure) [code = 773435343] Future Scheduled 1953 Screening for malignant [facility] 00:00:00 neoplasm of colon Medical Ce nter (procedure) [code = 195412652] Future Scheduled 1953 Screening for malignant [facility] 00:00:00 neoplasm of colon Medical Ce nter (procedure) [code = 768387125] Future Scheduled 1953 Screening for malignant [facility] 00:00:00 neoplasm of colon Medical Ce nter (procedure) [code = 676633157] Future Scheduled 1953 Sigmoidoscopy [code = [facility] Sigmoidoscopy] Medical Cente r Future Scheduled 1953 CT Colonography (combo) [facility] 00:00:00 [code = CT Colonography [facility] Center (combo)] Future Scheduled 1953 Screening for malignant [facility] 00:00:00 neoplasm of colon Medical Ce nter (procedure) [code = 763188945] Future Scheduled 1953 Screening for malignant [facility] 00:00:00 neoplasm of colon Medical Ce nter (procedure) [code = 254919281] Future Scheduled 1953 Screening for malignant [facility] 00:00:00 neoplasm of colon Medical Ce nter (procedure) [code = 803119608] Future Scheduled 1953 Screening for malignant [facility] 00:00:00 neoplasm of colon Medical Ce nter (procedure) [code = 392647321] Future Scheduled 1953 Sigmoidoscopy [code = [facility] 00:[facility] Sigmoidoscopy] Medical Cente r Future Scheduled 1953 CT Colonography (combo) [facility] 00:00:00 [code = CT Colonography [facility] Center (combo)] Future Scheduled 1953 CT Colonography (combo) [facility] 00:00:00 [code = CT Colonography [facility] (combo)] Future Scheduled 1953 Screening for malignant [facility] 00:00:00 neoplasm of colon Medical Ce nter (procedure) [code = 517765299] Future Scheduled 1953 Screening for malignant [facility] 00:00:00 neoplasm of colon Medical Ce nter (procedure) [code = 187760467] Future Scheduled 1953 Screening for malignant [facility] 00:00:00 neoplasm of colon Medical Ce nter (procedure) [code = 472347298] Future Scheduled 1953 Screening for malignant [facility] 00:00:00 neoplasm of colon Medical Ce nter (procedure) [code = 047013878] Future Scheduled 1953 Sigmoidoscopy [code = [facility] Sigmoidoscopy] Medical Jordye r Future Scheduled 1953 Screening for malignant [facility] 00:00:00 neoplasm of colon Medical Ce nter (procedure) [code = 267964152] Future Scheduled 1953 Screening for malignant [facility] 00:00:00 neoplasm of colon Medical Ce nter (procedure) [code = 446599459] Future Scheduled 1953 Screening for malignant [facility] 00:00:00 neoplasm of colon Medical Ce nter (procedure) [code = 282177029] Future Scheduled 1953 Screening for malignant [facility] 00:00:00 neoplasm of colon Medical Ce nter (procedure) [code = 553449481] Future Scheduled 1953 Sigmoidoscopy [code [facility] 00:[facility] Sigmoidoscopy] Medical Jordye r Future Scheduled 1953 CT Colonography (combo) [facility] 00:00:00 [code = CT Colonography [facility] Center (combo)] Future Scheduled 1953 Screening for malignant [facility] 00:00:00 neoplasm of colon Medical Ce nter (procedure) [code = 709291220] Future Scheduled 1953 Screening for malignant [facility] 00:00:00 neoplasm of colon Medical Ce nter (procedure) [code = 057250659] Future Scheduled 1953 Screening for malignant [facility] 00:00:00 neoplasm of colon Medical Ce nter (procedure) [code = 207128766] Future Scheduled 1953 Screening for malignant [facility] 00:00:00 neoplasm of colon Medical Ce nter (procedure) [code = 179565298] Future Scheduled 1953 Sigmoidoscopy [code [facility] Sigmoidoscopy] Medical Cente r Future Scheduled 1953 CT Colonography (combo) [facility] 00:00:00 [code = CT [facility] (combo)] Future Scheduled 1955 Screening for malignant [facility] 00:00:00 neoplasm of colon Medical Ce nter (procedure) [code = 305421727] Future Scheduled 1955 Screening for malignant [facility] 00:00:00 neoplasm of colon Medical Ce nter (procedure) [code = 964046687] Future Scheduled 1955 Screening for malignant [facility] 00:00:00 neoplasm of colon Medical Ce nter (procedure) [code = 913645759] Future Scheduled 1955 Screening for malignant [facility] 00:00:00 neoplasm of colon Medical Ce nter (procedure) [code = 965112798] Future Scheduled 1955 Sigmoidoscopy [facility]code = [facility] Medical Cente r Future Scheduled 1955 CT Colonography (combo) [facility] 00:00:00 [code = CT Colon[facility] ([facility]bo)] Future Scheduled 1955 Screening for malignant [facility] 00:00:00 neoplasm of colon Medical Ce nter (procedure) [code = 927849863] Future Scheduled 1955 Screening for malignant [facility] 00:00:00 neoplasm of colon Medical Ce nter (procedure) [code = 047897646] Future Scheduled 1955 Screening for malignant [facility] 00:00:00 neoplasm of colon Medical Ce nter (procedure) [code = 846120745] Future Scheduled 1955 Screening for malignant [facility] 00:00:00 neoplasm of colon Medical Ce nter (procedure) [code = 975936347] Future Scheduled 1955 Sigmoidoscopy [facility]code = [facility] S[facility]oscopy] Medical Cente r Encounters Start End Encounter Admission Attending Care Care Encounter Source Date/Time Date/Time Type Type Clinicians Facility Department ID 2022-07-20 Inpatient YOLANDE OLSON Surgery [id number] SLE 11:33:40 IZABELA 2023-10-09 2023-10-09 [facility] [id number] Univers 14:30:00 14:30:00 GARRET warner [facility] 2023-04-10 2023-04-10 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, Ang - Db [facility] 1.2.840.1 [id number] Univers 11:30:00 11:45:00 Visit Sowmya [facility] [id number] ity [facility] 4.2.7.2.686 Víctor as GLADYS?BLEA [phone] [address] MEDICAL OFFICE BUILDING 2023-04-10 2023-04-10 Outpatient Tiesha DONOVAN [facility] [id number] Univers 10:00:00 11:23:09 GARRET warner [facility] 2023-04-10 2023-04-10 [facility] [id number] Univers 10:00:00 11:23:09 Visit GarretMyntra 350.1.13.10 it y of [place] 4.2.7.2.686 Víctor as GLADYS?BLEA [id number] [address] MEDICAL OFFICE BUILDING 2023-01-24 2023-01-24 Outpatient YOLANDE FRANKS [facility] [id number] SLE 00:00:00 00:00:00 FRANCISCO 2022-11-29 2022-11-29 Outpatient R ISHA [facility] [id number] Univers 10:00:00 11:30:13 SENDELIEZER warner [facility] 2022-11-29 2022-11-29 Office Isha [facility] [id number] Univers 10:00:00 11:30:13 Visit [place] HUA 350.1.13.10 timmy [facility] 4.2.7.2.686 Víctoraubree brown RADHA [id number] [place] [address] 2022-08-28 2022-08-31 Hospital ER Anupama Gonsalez [facility] [id number] 03:12:00 14:38:00 Encounter Mandy [facility] 2022-08-28 2022-08-31 Inpatient ER MANDY [facility] Cardiothora [id number] SLE 03:12:00 14:38:00 IZABELA maier 2022-08-14 2022-08-25 Inpatient UR MANDY [facility] Surgery [id number] SLE 19:40:00 18:34:00 [place] 2022-08-15 2022-08-[address] [facility] [id number] 07:30:00 14:57:00 Event Lauro Galo [facility] 2022-08-15 2022-08-[address] [facility] [id number] 07:30:00 14:30:00 [facility] 2022-08-14 2022-08-14 Travel [facility] [id number] [facility] 00:[facility]00 00:00:00 [facility] 2022-08-09 2022-08-[address] [facility] [id number] 13:48:56 23:59:[address] [facility] 2022-08-09 2022-08-09 Outpatient MANDY GALVAN [facility] [id number] [facility]H 13:48:56 23:59:00 IZABELA 2022-08-09 2022-08-09 [facility] [id number] SLE 13:49:27 13:49:27 2022-08-09 2022-08-09 [facility] [id number] 12:53:52 13:47:00 Encounter [facility] 2022-08-09 2022-08-09 Outpatient MANDY ROSENBERG [facility] [id number] [facility] 12:53:52 13:47:00 [facility] 2022-08-09 2022-08-09 [facility] [id number] 12:10:11 12:52:00 Encounter [facility] 2022-08-09 2022-08-09 Outpatient MANDY ROSENBERG [facility] [id number] SLE 12:10:11 12:52:00 [facility] 2022-08-09 2022-08-09 Outpatient MANDY ROSENBERG [facility] [id number] SLE 11:42:17 12:09:00 [facility] 2022-08-09 2022-08-09 [facility] [id number] 11:00:00 12:09:00 Encounter [facility] 2022-07-20 2022-07-20 [facility] [id number] 00:00:00 00:00:00 Orders [facility] 2022-07-20 2022-07-20 [facility] [id number] 00:00:00 00:00:00 Orders [facility] 2022-07-13 2022-07-13 Outpatient MANDY MANDY [facility] Surgery [id number] SLEH 08:42:00 16:10:00 IZABELA 2022-07-13 2022-07-13 [facility] [id number] 08:42:00 16:10:[address] [facility] 2022-07-13 2022-07-[address] [facility] [id number] 12:43:00 14:37:00 Event Jesús Lloyd [facility] 2022-07-13 2022-07-[address] [facility] [id number] 11:00:00 12:10:00 [facility] 2022-07-10 2022-07-10 [facility] [id number] 12:26:04 23:59:[address] [facility] 2022-07-10 2022-07-10 Outpatient YOLANDE OLSON SLE [id number] [facility] 12:26:03 23:59:00 IZAEBLA 2022-07-10 2022-07-10 Outpatient MANDY LANIER SLE [id number] [facility] 12:26:55 12:26:55 2022-07-10 2022-07-10 Outpatient YOLANDE OLSON SLE [id number] [facility] 12:24:30 12:25:00 [place] 2022-07-10 2022-07-10 [facility] [id number] 12:00:00 12:25:[address] [facility] 2022-07-10 2022-07-[address] [facility] [id number] 00:00:00 00:00:00 Only [facility] 2022-07-05 2022-07-05 Outpatient YOLANDE OLSON SLE [id number] [facility] 00:00:00 00:00:00 [place] 2022-07-05 2022-07-05 Travel [facility] [id number] [facility] 00:00:00 00:00:00 [facility] 2022-07-04 2022-07-04 [facility] [id number] 11:00:00 11:00:[address] [facility] 2022-07-04 2022-07-04 Outpatient YOLANDE OLSON SLE [id number] [facility] 00:00:00 00:00:00 IZABELA Results Test Description Test Time Test Comments Results Result [facility] e Comments TISSUE EXAM 2022-10-10 Surgical Pathology 5 Report Case: [id number] 14:22:07 Authorizing Provider: Izabela Galvan Jr., Collected: 08/15/2022 09:30 AM Ordering Location: [facility] Received: 08/15/2022 09:37 AM PERIOPERATIVE SERVICES [...] report results of ALK rearrangement performed at [employer]. RESULT:ALK LUNG (2 P23) REARRANGEMENT BY FISH: NEGATIVEPlease see attached scanned reportAddendum electronically signed by Jose Luis Mendieta MD on 11/02/2022 at 2:22 PMThis addendum is being issued to report results of PDL-1 immunostain performed at [employer].RESULT: PDL-1 (22C3 clone): PDL-1 (22C3 clone): NOT [...] AND FOCAL MICROSCOPIC HONEYCOMBING - PATHOLOGIC STAGING: [id number] (AJCC 8th ed) M. LUNG, RIGHT UPPER [...] NODE (0/1) Signing Pathologist Direct Phone Line: [phone] lly signed by Jose Luis Mendieta MD on 08/18/2022 at 11:11 GRETCHENiomardeep study:Tumor: J80Qprwcq: U61Xfkpi will be sent to [employer] for biomarker testing. Results will be reported in an addendum.LUNGLUNG: RESECTION - All [employer] Edition - Protocol posted: 03/01/2022PECIMEN Procedure: Lobectomy [...] report. pT Category: pT4 pN Category: pN1 [id number] 5X14A. Diaphragm.The specimen is received fresh for [...] lymph nodes are identified ranging 0.3-1.7 cm. Public Relations Professional sections are submitted. Gross photographs are taken. A sample of the mass was given for research. Gross photographs are taken.Ink code:Blue : pleuraOrange : parenchymal marginSection code: L1-L3: Mass to pleuraL4: Bronchus margin, en faceL5: Vascular margins, en faceL6: 1 lymph node, bisectedL7: 1 lymph node, bisectedL8: 2 intact lymph nodesL9: Entire nodule from separate piece of fibromembranous hjoeegP54: Pleural fibrosis ovoid firm mass, inferior aspect of specimenL 11-L12: Mass to adipose cfobzyW53-C33: Mass to closest parenchymal margin, perpendicular ftzlrmdJ93: 1 lymph node, ynwxpfemZ34-D30: Mass to uninvolved lung wuqprtlulkW18: Mass to ikukiuojK47:Mass with necrosis larnpE33: Uninvolved parenchyma,L22-L23: Firm fuchs area in inferior [...] and entirely submitted in Q1.KAREY Paredes, GIANFRANCO ([facility])hospitality ambassador. Diaphragm.DIAPHRAGM, BIOPSY:-CALCIFIED AND HYALINIZED NODULEReported by Dr. [...] VIEW, NON DEPT 3 exam:->hx 07:48:00 [facility] 1955 Sex: M FINAL [...] lung.3.Small left pleural effusion. Signed: Hannah Gustafson MDReport Verified Date/Time: 08/31/2022 07:48:56 Reading Location: [address] Reading Room , CHEST, 1 2022-08-10 Reason for VIEW, NON DEPT 2 exam:->hx 11:59:00 [facility] : 1955 Sex: M FINAL REPORT RAD, [...] bilaterally.3.Small bilateral pleural effusions. Signed: Hannah Gustafson [facility] Verified Date/Time: 08/30/2022 11:59:15 Reading Location: [address] Reading Room , CHEST, 1 2022-08-10 Reason for VIEW, NON DEPT 1 exam:->hx 08:37:00 [facility] : 1955 Sex: M FINAL [...] pneumonia or pulmonary edema. Signed: Hannah Gustafson [facility] Verified Date/Time: 08/29/2022 08:37:25 Reading Location: [address] Reading Room C METABOLIC PANEL 2022-08-29 [...] s not applicable for dialysis gianfranco joyce Radiology Orderly ID - DBOperator ID - DBCBC W/PLT [...] (BEAKER) (test code = 2801) BASIC METABOLIC [id number] 14:02:34 Test Item Value Reference Range Interpretation [...] not appl icable for dialysis patien ts RAD, CHEST, 1 VIEW, NON [id number] 10:13:00Reason for exam:->shortness of breathShould this be performed at the bedside?->Yes [facility] 1955 Sex: [...] pneumonia or pulmonary edema. Signed: Hannah Gustafson [facility]epcapital [facility] Verified Date/Time: 08/28/2022 10:13:09 Reading Location: [address] Reading Room CBC (HEMOGRAM ONLY)2022-08-28 06:12:22 [...] WBC 0-0 (BEAKER) (test code = 413) [id number] 11:50:41 Test Item Value Reference Range Interpretation [...] mechanical heart valves.RAD, CHEST, 1 VIEW, NON [id number] 08:15:00Reason for exam:->post-opShould this be performed at the bedside?->Yes[facility] : 1955 Sex: MFINAL REPORT CLINICAL HISTORY: post-op TECHNIQUE: 1 view of the chest. COMPARISON: 08/24/2022 IMPRESSION: Diffuse right asymmetric pleural-parenchymal opacities are grossly unchanged. The right-sided hydropneumothorax seen on chest CT is not readily evident by plain film, possibly due to layering pleural fluid. The cardiomediastinal silhouette is magnified by technique. Signed: Gonzalez Knight MDReport Verified Date/Time: 08/25/2022 08:15:25 CBC W/PLT COUNT & AUTO [id number] 05:23:48 Test Item Value Reference Range Interpretation [...] H PERCENT (BEAKER) (test code = 2801) [id number] 05:18:08 Test Item Value Reference Range Interpretation Comments MAGNESIUM (BEAKER) (test code = 2.2 mg/dL 1.6-2.6 627) Radiology Orderly ID - MARIOBASIC METABOLIC [id number] 05:18:07 Test Item Value Reference Range Interpretation [...] not appl icable for dialysis patien ts Radiology Orderly ID - YENIFEROCT, CHEST, WITHOUT [id number] 11:38:00Unlisted Reason for Exam - Click Yes and Enter Reason Below->No [facility] : 1955 Sex: MFINAL REPORT [...] Attention on follow-up imaging. Signed: David Arreola Verified Date/Time: 08/24/2022 11:38:27 Electron ically signed by: DAVID ARREOLA MD on 08/24/2022 11:38 AMRAD, CHEST, 1 VIEW, NON [id number] 07:05:00Reason for exam:->post-opShould this be performed at the bedside?->Yes [facility] : 1955 Sex: MFINAL REPORT CLINICAL HISTORY: post-op TECHNIQUE: 1 view of the chest. COMPARISON: 08/23/2022 IMPRESSION: Right asymmetric pleural-parenchymal opacities are grossly unchanged. Widening of the cardiac mediastinal silhouette is unchanged Signed: Chika Knight Verified Date/Time: 08/24/2022 07:05:41 (CELLAVISION MANUAL DIFF)2022-08-24 [...] PLATELET CONCENTRATION Increased (CELLAVISION)(BEAKER) (test code = 3435) Radiology Orderly ID - joseph Solitario comments: Slide comments:CBC W/PLT COUNT & AUTO [id number] 06:50:22 Test Item Value Reference Range Interpretation [...] (BEAKER) (test code = 413) BASIC METABOLIC [id number] 04:28:34 Test Item Value Reference Range Interpretation [...] 358) GLUCOSE RANDOM 123 mg/dL 70-105 H (ROXI) (test code = 652) CALCIUM (ROXI) 9.2 mg/dL 8.4-10.2 (test code = 697) EGFR (ROXI) 97 Interpretatio n of eGFR (test code [...] not appl icable for dialysis patien ts Radiology Orderly ID - DREW [id number] 04:28:34 Test Item Value Reference Range Interpretation Comments MAGNESIUM (ROXI) (test code = 2.2 mg/dL 1.6-2.6 627) Radiology Orderly ID - DREW GTissue [id number] 16:43:29 Test Item Value Reference Range Interpretation Comments Case Report (test code Surgical Pathology = 104) Report Case: [id number] Authorizing Provider: Izabela Galavn Jr., Collected: 08/15/2022 09:30 AM Ordering Location: [facility] Received: 08/15/2022 09:37 AM PERIOPERATIVE SERVICES [...] lymph node #2 ADDENDUM (test code = v9cotKBrTKPzyJH4XhFyEF 3381) Aiv6ekk0KjkDDhtHJpXCmv oAKpwvEmpw32hIN7pZ91CL 0sVKSgFkO0RZCtefI9Uvy0 CJPcNSFbwHFmZ275p0uon7 exgtYdsAK5pRtcRGBbbdmc VzD5GGepUWMusbvmPRs4UZ eoYDJekJD5GHGolBXvG5Zs CNFkSO2iode1RTN4XMjwXH YfKmH1JJMlrBYrGFRegIpd CWilg224XRB7SqLjQQDvff FrvNsztL6jIvGjXOWVdNja IGFkZGVuZHVtIGlzIGJlaW 0hYMyps2KdBOL8miGoHLDh znMgtoGciOa6ekWiCfUUGV vsSVIjuE31ok9icAMblpFl ZSRjf4KmGQTlTUXzWsLkL1 Ifv67aY6GkOUVlx4PyxI8v aWVzLlxwYXJccGFyIFJFU1 VMVDogUERMLTEgKDIyQzMg T8kiboOrXgVxfBXzFMQikl UMVEdpMJLiGgNDDvZpvO0k QVi8LE5GLAUJYBJXYQJUAA ZnTNJlrgFXEBHzE8KQPsW4 IDBccGFyXHBhciBQbGVhc2 Izw7YcJOF5dOVrzTHwOWAy AT4uEFCnukGsk9N5BOEvxe UriWO9dTHoAXCvoHQbuQGp cGFyXHBhcmRccGFyfQ== DIAGNOSIS (test code = l5zhsDRpIVLot7jwJADihC 3220) FuZzEwMzNcZnRuYmpcdWMx IHtccnRmMVxlcGljOTYwMl gcjxQkJLYidZJtU7Abhkzo HZsoYO0kQP6goOkqrLVojT VsWJAqVbNqf9mwc499xSKo a4bfCFRWrgkdlIb2oQwvW9 8wx5T1IodfO6xoIQVcUQmg wbTvnsL3FWAdlHIfSDh5MP BhcGVydzEyMjQwXHBhcGVy vVE2WWWfPZ9glxjoVZwuQA taSVUkdkB0UXYpsOFdQ0Ni DMZzPT2jofgmHDY9MNbvPF MvPLI4YwLyGKQzs1Pumnm2 MjBccGFyZFxwbGFpblxmcz VsXFAmURVTOOOZDIQSY62w LSAWA0YOGGWBN7JhGxJTSf VHKAZAT5HGI538ITVlfrAi MMGfGtAECYMJHoTfZo6QTS 4QAQmZJnRHU9meoDQqTKQb HDHEJ1SVPtaJFkYMGjGwW5 bQX25FOjMSZbTDPK2BVUHI K95quIXxUBYkntCNAgKqLE nDREwtPc8USYxmR3KFPOhC VsIpRUGOKCWTNVCUF1OPJ5 46XHBhciAgLSAgTUVUQVNU MTXLVuNIUSQOAU9EAuRLUS HWUH3VQDMaOQ4CP3sTMI9G JHDlD1NbEdEKRP4YMAHDX8 SEJsPlEY8kWCguEYLmrHFc EBDhWPCMFX1AOJIUH0IOCM XBMGSORU8IVBgdDMYDV2UW IZbGIdURX0FkIpJVMgRPLM OMM0ZPE201WMEtdoKyJMPa A59AFLGVBjdGKzJRXG0BUZ ZUJ5WAUZxeCnFbHMOgbtji YXJkXHBhciBELiAgTFlNUE jyVx0FYZziW1BUXZpFBuS8 GTAxTXSDEABBG5SAC804ZQ JbmyCrJPNlR89UERHVZcyB VlREVO4ACKFYC6GDXVvvQb EpXHBhclxwYXJkXHBhciBF ZjVaZLzYVOljEi2LXGmaC1 GPPRyMVkH4SZQiEWWVRMXM L6NBS041UEZmvnDuDMOkQ2 1RNBBXJcqOMcODKW1YEZHR Y4WAAQakInMgXFXljeboVV JkXHBhciBGLiAgTFlNUEgg Qc3KCNnfD1ZVMDgZYgEbLU DPVEPrRLSZUEVLQ6YJE486 KDNvjoVgZWXcV06TFCDJRt pAIfRFAI7BNTVSD2TVGFfd LzEpXHBhclxwYXJkXHBhci IMUaBnNZhWNXccXe4ROLhb E3MHBZcXSfAlLVHSBXVdLC RANKWSB0YAH970HDXnweJg VRVzD08OYXZNAloOSqXHZA 7YRUSJV6HABUasCyAlCRRv clxwYXJkXHBhciBILiAgTF rJWTycEv5DNNqiP3EBDOzN TiAxMSBSICMzLCBSRVNFQ1 BBA494TMWsijSlQHYrS47M QFARDamKEtCTNL5NIKOID2 RFICgwLzEpXHBhclxwYXJk XHBhciBJLiAgTFlNUEggTk 2UNZfzB9KPXFfFOeXyVQJJ UPC6PKNEKIEQE2SNW756NW VuydVjZAWhR69KYIOQHpfH KcPDDR2OFZXGN2MLNIlvIf EpXHBhclxwYXJkXHBhciBK LiAgTFVORywgUklHSFQgVV TKWRZoBS9QBHilRmWUVvPF AUMXRW2LIjmSJdDLMJ8IRq KTTRdaOuNUHcBYXTOKA5BO S847RRPgemIgGLYoL1DJDV 1BQGUxD4XEWRIHQHACSC7L ZYFvWCKGQrVCGG1YYkmUYn YtBnUIBZAKPmL9JGOXFKSE TUVOUyBNLCBOLCBPKVxwYX WfpAIiLIonPCMCUR9OMQID ZUjCDXRDAQBJKuCZU2YGCG MQPu7NX8uAMTugKDRXZ5fF IENBUlRJTEFHRSwgRlJPWk NJISXIK5VPI456XAFuyzKb IEHcYSRCT5UiYIGKQ2TDZY VIRjHXTQ8HXSUBAOWhD5BH A4IYJUIbowUbFDItSoUXHn ZHLCYCOO4CRekSCvYNKz8H KZCuKE9EK4BGLKDWDKNDFo AVBJgJY17PWwAHSIBeyzgl LACrOM4bWOiDRgamFGKQH6 hUIFVQUEVSIExPQkUsIExP CpSMQG0BDGezfCIsXIWxCV x+LSBcfklOVkFTSVZFIFNR JLGGB0XHHMJPUYouE9LXF0 eHD45WBCXVQ1FPAjUTYKNS WpKFY01QZTwaUShIDiTTHL 2HLMXNRHJzvEKkXN1zCId+ IMBTO7UaFGWWP5MFZCLlRD 2uIXoeWb75ULkbDH8aVBPN XHBhclx+QKQbfuERIM6ITO iAZtFBOBEcYusLF1JLOBws UExFVVJBXHBhciAgLSAgQU RIRVJFTlQgUEFSSUVUQUwg GBeJSANXFSDTLrtYQr6YGh VEXHBhclx+LSBcfkxZTVBI M5LDN3PQTHKPDAcLPpXSAB 3QAPqPWHlKRZ4FLLDDSXAn uMIrBU5oQMq+QlJPTkNISU FMLCBWQVNDVUxBUiBBTkQg DMQTMT5PHCdMWVyxRvOZFW NQIV7IPR4UJxqFCkKfTD6F S3RXLATIBTTJLtECHUbXI2 0YEhTMZAOzveo5RBXzKIKD Ea7KH5nHKRwdXHXEL8uCTr BcFuTlV33fKGmESTckONWp mIQvVM5vAkVLX9RXAQSoRN QLV2fRHtUtGnNiC09oMFkE VSisATThtYLwKG5qKPZSES 5UFAcQHDwkVCKAN6aSAwPb HrHnT26hQPxSAYylWVUiJ7 EtUMBdCKOSOSGTH8VUMYiU RZXOMFSKE5RJYWZUTiYGDo 9NQSBJTlZPTFZJTkcgMSBP DvG9FEpAPDSYZU6YUIXNPT oqTrWvEFHynzelFbJiYR0u FJHZRP3PQ0lRCKAhKJGPPk QVRQDKTzZJMA1INYDBYXUE MBAOGdmCYe9YP6kVK9qIHh LFZKKKFLeGY0qHUQUZUTFi uYItJPGkFNSiYl3YPXpfJV iORk7XM17PCLSpFM4RPXrO S91ADZ2RGRBuouq+LSBcfl ROKLjWCE2EGLJhX2KCA3nA XauroLE4UnMYtKAlJAhOMf I5hScyEZUsSMymRfJtQAdl EQTynJPgCFxnAQYsCE7wEI xQLvuzVAWSF9uBMLJLCSNR AQjNZuZvZHDVQ78MSStGAN JLKRJYSO9fXSZFOiTOAyEd OMdYPVSUOLaeOUDUP4RYIM lPTjpccGFyICAtICBORUdB HMhPURIRR2FkGRITSLkRQI 8ZBOxbWHExyXGsMY8xEFXU DV5STVRJVZiADBTZYHDVWk YNO7WXBHCDAc4UK4qWNVkb OWNZR6pSMC9OWXKQII2OQN IXITAXDTxeSXZTL9CUDRwQ TjpccGFyICAtICBORUdBVE jZGSRDO3RgTGCOJUxWUN9J WVxwYXJccGFyXHBhcmQgTy 1sEHvDFowiSYSAR4cQOBHT AIEEEUyUFmWpKOVPL90LMK kYMGZXNTHSOH5wIVLNEkYY TkUsIEZJTkFMLCBSRVNFQ1 HYF351VQEvvcBkDVOiZfRZ LNMCLjFpKo4FQZ4WAGeTOl YVV2gnuYAdESPkuspsLJLm XBRiQEIXUC9IBIRPM8ZQSA JQVIPSIJ5RJLHLQYJfPQGV VKHUO3JPQ037OMCmliPlOS OWMLCZMNZSBlqOJzGHWO0V EAEPN4MWUzGcXF18LLrrVV BodVRyUOGeUTkWCCBTIU7D MAKvTSCBTUUJY26sFPHnEb InGPPXO9MCIOuJRrmymMLl ICAtICBPTkUgQkVOSUdOIE wUBLJVOO6LPJEnCOIfHRbe sGSmoMqietYdJVtvc5LiJM jtSPBtUH2ncUcqFAXgWD4x KWFvB9uaaY8wmvt6GxVlNS ZrNdA9SCPqelZ6Gad2GTNd URxdh3ltl3XtXVZbKMb5cJ hmMqInIKZiw8slavEdAfBu KBYrVIQvFKBqxXVqX221q8 jes7yfnsRluSG5ANWbZEZ8 SQsuqnKqgtK1VHvdcQJbVn J7TEcdwqGhAYbpjoGpuxDs Axg8KEXnJ821DYS7zPass6 toHBK5CPNkPQQeSxSaCt1z wPPdY150DKVfZNYWOTUytO m1YUTopzKgdkGpoJYFs196 R375v6gdZPKlioCunOzUol sts3dbT527UPWmgTHbuuEl XgOfYWDxkPHseTL6QPBsLC 7sfjntSTdeCEvsYEQpvgE7 HNTetKDmO4EeUKFdAZ6khf ozJGB9HAviQCTlYKQ2TaMm BNLjg1Ahpjg0SwBcjc6rwb 54SFM9e6DbhEnvUSP7CUN0 XiWnIi1ezPMuIGVpVD5cIa AnjSXbDFCvfw14qAheSRsj OWS4PMKwrdDyw5Fdy9rwCy CcfiEoR3zsV3BrXMDkHEVo KMQeYbOtoaOqs1Eyh0PaeI LkeCs2z1toCRRcGXYxoUvq q1czZLF0WDFhlGLdE0iroA 6pUYRnKJ8hlltll2owQUvp UHafZEAexZG2uxA8RZHlmV MuG7SodJ9nDBMwLLscUPQf iek7DoQxUj2jwQBlgFleZK xzYmtwYWdlXHBnbmNvbnRc cGduZGVjXHBsYWluXHBsYW luXGYwXGZzMjRccWxcbGFu ZzEwMzNcaGljaFxmMVxkYm DjJNOaEGafS2jkDoIgOiSm Xlm7VKMetSInSZXdZcl1VO TrrRIxBLPBcVmroH0aBOXu cTsjgB3dwFL0ZPBayrGurU JPkV6aWEZQgX8zKaC0CNBg Pcd3FCQ0LhZipQWkoG1= COMMENT (test code = y8awlPMjJFHqmPM9LqMgMD 7096) Qpm3yiv6FwbRBbpLYwDOih zCJctdYdwk38zIJ2hM24SA 6bMJIlRpB0YMDxagP8Bng3 HHXzANDmnRWfQ232v9xvm8 rptqBdlAK5cAzrDLDuzcpm YoD3NSxzTCJatnorVPh2VI ijOQNmuTB3DTFmmVNrW7Nj KLYfPB9aook0BDE8YNebYO XaJlJ4ZISxjCGrZFWimBda KLthr548RLS8YqLjOHFuit BinKcbdE5vTxWeDFRFjE7j JMKdUZTzz6X9OZf2UZUigh BLrC9pedkrCRJrYNQwchIX c5TeZXf3VUrfFEcjUOWujR PjCFT1iE5iBCxxrUbcXkSi x2DumYD3bdSJAA2rHT4vpC zkyjAcx9BdEqitlRQmg7Rp MZYyi5FnsqidEECew4BgqZ Fty4fabWBlTYGmUAGhsvFv CNTspbFyybFlTJCxqoE8uI 5ccGFyfQ== SYNOPTIC REPORT (test LUNGLUNG: RESECTION - code = 5765) All T[employer] Edition - Protocol posted: 03/01/2022 SPECIMEN Procedure: [...] pN Category: pN1 CPT Code(s) (test code o7nypKEvVANhaZR6FkRpVG = 3357) Bxw7ctb3NgzGZoqWPmZUua eKSusoYbkj88hVC4vQ48QF 1mJTSqHqJ3XCBcjsI1Ufa2 ZGNaMMNzqUCnC831u4uuu8 clisSffLL1fYlwGETdxsjg MvO4ZQbmOWKgfnleTLu4ZH fwNCAqcYC0TGVsdTLnU0Wb YSTcBV1zllb9WTA8JQqdEX ExSxP6LGAjhHEfFZOykLyu HEmdo615DFB4SvOqKMTeql CviEqvuQ5oHaJoWOC6TTOy MHb8IDGcpcQ2ZXKqD7xrAD YgqlG7QZUkMNsrTRWyFDhf MDVYMTRccGFyfQ== GROSS DESCRIPTION (test a3tutQZlAXIhzDP7UiWyDO code = [id number]) Tqe9fmh9GdgFRdiHOmZTbv nWEztsPimf98bIY6sD61MQ 2dAAPbBgV4TKEkdlF7Lzn5 FIUiQKWjmOKuF119f1rxa4 xcdhEarQX1OCGdRPVhA5Yy LC5gIPUjqRNlN17wmGBfTX B6HHJbLXPgzFEjUFGlDBG6 LHAmeDBwO3mgNGMtEX3rtn nsEGyvZNcyRXUjsVI2EFLf jGZwP8JnCEOfIHnlFQRzqd s6NsXhDa7sdNNydWdfHYcm KESuy7klIHWjlLTlVBR5SB uzoCZlCZRvVEIqNZv2OCJl WHsyxZAaUY1mbYukKfwwqF sfe4NubMVcBFduPSEfNWDx PJxcIYDvU4QAITQgEXYoCn UwDNUhCWd1JEocR8AIWIFc PARhXZLpWBp7MwT2VHm8CD AHMj7dSlo5FTpbMOMjZBV8 OTkxIFxcdCAyIFxcZmwgXF oaGWSozODaAHvjviH7CSSy NRheLEIzGlDfMS3wQCkytQ hyYWdtLlxwYXJcZnMyMCBU mTKkw9AzK8kxEH5wgNZwam NzHSu6DSVqQnZhd4tzAe4d FLErx0emvpKaARS5lH5cYP GxSPejr7UehejxiDMoRDep BTE6iUZjIHPeARHfKIPtWH 50XCdiNHMgbmFtZSwgTVJO IGFuZCAiZGlhcGhyYWdtIi BpcyBhIDIgeCAwLjggeCAw QtPmR70eaAOcQKc6iQAbPP EvlzE1WDsasHBuVJKliXRb c9TnToS8eZSpnJEmq3OtkR o9kUQvUNioVVZttV2mpI3n TfKzJSXmu2xxpDzay8BnnP AdBEjeRJDndYSaJSuxbC2e WbOol6bxiEl8HKsbpiR4OU Wvxt71EWsuNNKcJ4AhO1En JYocWYY0AZWnJjSvOKSlJN 9DJfFoLKlxXIJoXnglPOr3 CAz0GM2GRhBfEIUrZqXrSH S9UqUvXFw0VGsnLC0RLTL8 IVC1YIwwJEF5CCf3JCWwSN QgMiBcXGZsIFxcZiBBcmlh jKSaOA1qmJajwuLmMPLkBF h1hLNmSI3aTKAiPZWltzsb czIwXGNmMSBSZWNlaXZlZC NtdxGef4ClTIusblDiMCKu bGVkIHdpdGggdGhlIHBhdG deewUbV0O4raKmAQ9jGTPv CYCbC3UnVAUwD86fXPYgwH 7mLLWdON5jRBp5VZAlLPEb JzkzMTAgUiIgYXJlIDIgYW 94rAPoJ124aWMbpQihzJaf jw5mTUFutWAma3OcsN6zGP HjFEPcyLRqplOfYJ64UXJs LiAgVGhlIGxhcmdlciBseW 0iuLZmj8DqGJowOFObh6Sb xFGdMSEkAIF8nGEob7HhK0 teXM3bsVMbTB46qIMaoGzh x6UetPu6eQRtLhfyRQDlsS UuWZIwJ2Rsz87pM25oAQsv cGFyIEIxOiAxIGludGFjdC WlmH1ueAKot5KmDOBapmES Db9HCpnxGZGdnP2pgLHvj7 SgGQZiiSViC1CrDZskYDGs U2VuH5MeynEmzEIyPLEbhq Hnp8zbYHK1RYTxkJDvsFTt StAbXxdmJAC9g0daPJZfaL LwWEU3JAetvEFaRSUmLWMy WPldMyTIIlGpXoB1QSBbOk X8IdD8WMt8RLDAUzXoLzOg MxPoDNG9UBXpETh0RRa8IR jTErB0UBtnXHUmCiLeVGY5 WSSoRXp8VERiFIjjtBUtQN CnMTLeJGdyECnnV45oWwRr YLtgQsHkXf9xKCokuYkzSi 2gSK8skZImTVAoWyKpGJmx IHNwZWNpbWVuIGlzIHJlY2 VpdmVkIGZyZXNoIGZvciBm ga86BM0ai9XlhEhslvXffP Wqou6giPKgZWlkPzVwBKMb g1n9lTY8lVPglHS4xKZusV rnHmFeVC0zqZCeZP0TInHz xsYwUjh3BzMmbaVkPEUgCG R9SOPpLXU1GRCbNuCedUVb ekMussPbe3TfKeQllG0znC Dxs8QuXsXiNHboZGToUIZw tMAsVIloQORug2ZcjETeQN FuZCBhIHRvdWNoIHByZXAg vKAujXRpVX8nZNOtNNWktT ZrqN7rycGrqjBxcfQjafXu kWNbrWBxoON1BHJelS5rOe FgJmUyn6nylLexh4CltVEs RIafBECfcMXbQXcptY4qRo Bwb6sdrMp3ONalagA8BGZd ho41LBqbBICyS5AxR9KpKQ jpHYI4KLVrSuEmABIfMJ5E AaSpYWxvDEFzCfokEDe8RY j1JF7HQrLoSSViUlKfGVcy ZLYwHFc8UCdcKF9ICKT8ZC I3SIHmGqP7QTa7LZJzZYEq MiBcXGZsIFxcZiBBcmlhbC WwNW2rkUwvwnFlRZUbSEo8 dOBsIH8oLNEcLFUcwbhenz FwTCToG2ZsjqKrLQEyULGm XJfnImJmCKNtt4n2fOH8hX BbnFC9nIVpsSlhZjPkXK2l pNJeZG6oCWttUYnzvqUkv7 EfNZ67pQYbetCtnpSvLyi6 IiBpcyBhIDEuOSBjbSBwcm Q4iA09a7x6UKtfD3ucIKAv AM55vOMgU324fRXboDbrgB chel9fELW3xTR1MZtxMGCi w8MzxNIoTOMoYJYzdlBjqu FccEWthNCgsNN5KVTtcC0c PVNoAYWts3yfaSorj9RkfI UlLMbfERHfiNWnTGvdjK9t CkFcw5tsqTv4CSfadpL3PF Wlqn88TOrfRFTyE6OrM4Bf BLrhLJZ5XCAeCqAeCLTxFN 6YQnSpZYzvYZVrCbeyZLf6 KXr0GK0EYcFqMSOpFjIfMV akSFCrFOr9ZRgqCE7PTFS8 GLO2APTiYCC1PNx0LVIqLI QgMiBcXGZsIFxcZiBBcmlh xFEiWE2waFfnkuDdZJLjAY f2xTObHP2vLHIoDAUkigij dsTmECGqK9NconMaREMpVR SlCPczPoXoKXVog0r9fUV5 hPRwnPX9eEUtaWejGrDkFT 8ikCPkOI3dBRirXGxxocYa u2DbYX99oBTwrwWwybVeGu f6TIHwFnUcbzPkLUWoWhM2 XNXlDxR4EJGtHZZqhOTchr CcukJvc9TbUdDqrB0cxBYs m1FrEPhtfJahMTAjxBLhbD DlcD03shPap5QdOQM7BMDe ZNAxBUPsrB7xKHC7yXKwwG LaXXIWcDPkpM9copTzbcAx RLYbGWxzrJDyQQF0rY9mVW HkRU7fSPKexUphUDt6BAU5 Mg7cxUVwWIMbmdYUTS4FVF 22IOLxqRGjHIM9VM5pTIRw itjaRDUsSSNoGRP7FBvoqH 11bHQwXGZzMTZccGFyfXtc HlimxIrez5OhwFAgPCttQD SrRPFjLYzoZFHtP2SDNRGf YKHjPaBeYXIiBBp7XOpgK1 ZTICIgIDMzMDAyNDgzIiA5 IWm0XLQXVn6pDpe3AlT5BG k8RCU7TDdtSVcdmESoGMky ZmwgXFxmIEFyaWFsIFxcbm H1FFKjUnZkKt9dUPbxiOrd Hh4vOG6vvTAyNQIdBoQhLg NsALu1CRIkVqTdf9kgnZOp ICywNCR0gUKcOIBxPDQdDL DuOQ40DAobLLWncoFnYTab bWVkaWNhbCByZWNvcmQgbn VtYmVyIGFuZCAiMTEgUiAj DTYdnLFjBXReSaSyL03wCH 22sIWgV187dWHpxHaswInn eh1wGROkdCZsvUJ0XIUasB 1dzR74kqFbhqPTRM71CFFi sEDnDFP3CN0jKYEstnspHU FqOIUkGUN5XTpitD27zTKg XGZzMTZccGFyfXtcKlxlcG isx8BxmMZcWJrpYVIvNOFe LWbsYEUlQ7EBUCApYOGdPb PoGIEiNYy7OIfuS3IOREMe YDVzDYDxDWHlElP8KTd3WC BFLc1uDer1QiN5ViYbTPE6 OTkxIFxcdCAyIFxcZmwgXF xqCLDgoVEaWJoovhL0PEZs FxGhTa0oURoojHwkPn8bMM 6ekFQsPTGmUpWgPmCyHSc6 JNMzQzTyi8rvqAIeTAzwCI L8vVWgJLSkECIpPMDgCZ59 XCdiNHMgbmFtZSwgbWVkaW NhbCByZWNvcmQgbnVtYmVy IGFuZCAiMTEgUiAjMiIgaX MtZSHrGnebY62fGT71iHNn U085hGLojMchxLlgrj2dJI E6lPL6WOgqQFAmd5HvmHSc IGFuZCBlbnRpcmVseSBzdW IxdWJ1OCEleQ4zTcOwEhXq h6tsxMlhl0KqkUZlJUcsID NwtKWpGOefjG6qWkTvw1vr uPg5OPquiiF4MQKpqk74JE qlPYUjD2KeO9QcTMtzNNU7 YIVmChDwVFBjSU0ZWgYxFG rmAQOnOyzxMFj2VNl2RQ3T UyAiICAzMzAwMzAwNiIgOT n7IVbtXB0MQTG2NPX4PQBj OXQ8UPj1TWDrVETgBzUjBM OtDBiySnGLggkrwAKfPL5u qUmzkmJxQUyjYYm9lZFkGL 5vZGUuXHBhclxmczIwIFJl T2JmyrGzDQGtXSVdSMifGb VuBHPlr7k1cYZ5fWTkpSW3 fQZktNhlCfRwTE7ptZQtKS 7mULpwXSiivcRsr7NpQA49 bWJlciBhbmQgIjExIFIgIz TxILppWLKmAN6oNXDaUFGl mNjbFWQddPihXQw2qKUjUR 5vZGUgdGhhdCBpcyBiaXNl J3FbTHZaywQpIN65ePVneE axx0WzcOw2zCVgMVohENzo SnfvHLRkZ7BdT1PnadPwlX NrKBNqycYem8ntNMU9TXDm nWVhhAZvYoIqAzadCKE4f7 iwPZMslJMoCEZ7XHvnfQXi NTEwMDIgXFxkYiBPVlIgIi R5NMUtKrO0LtB6XGv9XAPD VlMgIiAgMzMwMDMwMDciID i1VWf8VBeOVnW2ARuyJic3 OhhzJNJ8BXErVOh0XRTdPR xmbCBcXGYgQXJpYWwgXFxu K87hIuPyOYFHBcSIgQ5voN SLv5JmCaswGHZfKjCxEXPZ ZWNlaXZlZCBmcmVzaCBsYW JlbGVkIHdpdGggdGhlIHBh aCgvceHaT7D3hyFsVO8fJD BkICClQ1LeQYJyB16hMKXk sP6rNERsOY7mKRZiGDQGTR O5EsAshpBgUPXsSRVsmURf qiZuimLxt2FoJcJldW7ezJ Fat5QnRGQaJIltVA57DKLt aX25caQsGJGnKFMyhvFokG QxuLG2GSNfzM0dmT95ufLz gsSKMW27AKDyzDOrEVY5RI 9vRLHeawbfWQOeSIGuTMP6 CAwrbW49qTFwAKTdAXRmrI LurHnwHnxfvTtsz0PcdONx XGlkIDUxMDAyIFxcZGIgT1 ZSICIgODAxMzMyOCIgOTk5 TVkbE0NBSXRxLRElCSIkOX T0EbB5XYn2WIHNOc9mWjz0 YcL7PYF4VNW4UInbRMociK AyIFxcZmwgXFxmIEFyaWFs ICddxhM7YYFtYxStGm8tWK VuZywgUmlnaHQgVXBwZXIg RV8qMQ6fxPYlZYYcBtFaP0 HrSIJcXMAsvENniO4ccmCq cyByZWNlaXZlZCBmcmVzaC Adm4AzPhEaosCpRKRzL2Ot q23dHTaqO75bu0tdANRgJB JlbGVkIHdpdGggdGhlIHBh fFuibgAaC5A3fgCrVA2pKD CCSz6kIK8kWCGitP5xPVEy rLpogBN5zOZuzkSnb4ZxPt PahhYbBMAwWjV4AMYhgP8p zjStExV8IATaGbEljWAweT 6kKYQyZeVlyDtad0HlRSVa PLhtWW14LTD6Mo5deKWwGN EozoZ6i5LeQOubZALWEWbc QiibQKBdS1VuP0SfslVtzK NyPLGnxfEzu4wqCKO1VZNn fGZpgGXoTqVlTatsIWS9l4 hrWKVmxAVsDJL8NGgpmHBb NTEwMDIgXFxkYiBPVlIgIi V9UCCbHpT1HpR6WZr0TLEO VlMgIiAgMzMwMDQwMDciID d7GUa6DJsMFvS9KPwtIwN5 GFIiSPD1SRXdFRz4JIJdRR xmbCBcXGYgQXJpYWwgXFxu D18zDxCnEUerWeTaIa7cYE VuZywgUmlnaHQgVXBwZXIg FK6tNN4wyRJxXAQaNqKyW7 NnXBYaPAFecZNsyF3fymNx cyByZWNlaXZlZCBmcmVzaC Qyq5PbCbSwxvNvUHVfE2Wq j95wIDkbN23gk5ovVVXfIF JlbGVkIHdpdGggdGhlIHBh jRrbcaLuR8F9bfFfYJ5xGQ GNYo2tXI1pLSDnjV7cRDXq pIhhdQT1dZSspcXue2TdSt GdcpIuWZGkQoC2XXTtGcR0 ZZEvCbEcjKYfxC0tFSHvNu ZqtNytq9BoFLDbZRayLT67 ETC6Bc3hrBHlCBHznkB6f1 JfEPhaUVftLpopNLHxJ4Qx J1VgksBicCUcTDRifpRps2 peWPL6QIIptUNhdIUjGvKa MskzNGY7y5onZSDevLMiGP V6NNgfhJFtKTZfKPNcTGda KpRGHoEnWuL2IJLcTmC9Ck F9KDv6SHCISyFqNcJiYkBn ROKaVsZpPMy5LNq7WHfUWt U8EOmfKOV9EHEfIRT5GEBi FEs5BRCoDPomwGMwGLTdUQ GoDYgiFNtxY67pTyOjTWbg RjWlJG8dWEZmMdsfZxcthM CeRCDiMQWeMU5sIQ1hfWBu RJCiQtLjG1IyQROeD7Lkxl VkIGZyZXNoIGxhYmVsZWQg x9b2eQY5wPYhoGH3cCBhsH zxHW8osKSkRF4PPnGjxtTd WUs4fymjZIEEPEFltCOjDN I1FDZwMaqyFNC1BROqUxve uQH7WlQiD27jaIJgGySkl8 HrY2OjaYpzsAXtzqZcL6Iy INOvdPU3wIJju9Mxf66hUA S1NIHox27hjQXfQam+XH5B dDTfGTNjT7DezgPsFXgiYP FyHADkHZ8xDIPwboLgiV5w wpPniuTqNUErTAO6DDKyMJ Y6IRQdXaStgEWghL2wNIfd aXRlIGZpYnJvbWVtYnJhbm 71aeM7mBGssCEko4q1iRXa QVRvVJcfJONyu6VjbPUrEe KncCNfI1suBQTrFQfqy3Cg XLQym0R1DE9imHLwVZIpho BUaGUgcGxldXJhbCBzdXJm YWNlIGhhcyBhIHNtYWxsIG Iut4UczEIbJtSwGWarc7Ft KCNau7I1NQHgzdK7yEGuOC 89YCOzb4Uoo7QzEbZhWZYs QmX1cAMxEVFmuF4lYNraaR wlpyU5vMQckLlxNPSsWOHr o4QxlZlvTXKaiJUoxL2sMW BsZXVyYSBpcyBhbiBhcmVh AL8aQTA3Z2rbndloPb5zFY UzWARmLJ7spG7imwsluYve aIUsTJbdASAtDXrra44np0 OtQKJvFZGwNWxrqMS2zEXe PTMlOALxNA8aPYVqYyQva7 swLYAjIHZzNMaec2seofNf ICBUaGUgbHVuZyBpcyBzZX GzXAnjdSSzPZU1fW3rREEd aS2fmhA3FPFiKDPnLXukPs A6NRHnQZF7IOZxLQSdyAJc zFfhWZNqqX0fPUjeJ4VmdR 81pCi8BVP0lrP7NSqli5nx VAXolz8jOOWhT1AqtGoyfr Ziai72jZNobATkmiXbDFQd sL4fSUKoBETjvQS0ipGwDU B7F9prdrvyXcVoiqT1lKVg BA78TEJry3Xeo7EkKpKwPE 5cfiBUaGUgbWFzcyBpcyAx UnIhSzKlaWZ2jUJlPuWnym RjvIJqUI2phodadpiuPG40 FIIbGHHie23euTxpXAZ0fX 1vbmFyeSBhcnRlcnkgbWFy U9ctZOJscsJoNNG2wBNmhV hlIHBsZXVyYSBhbmQgdGhl GBI9bSTkiTGtFMFqxWEfd9 YhyRryw3SzSvJkRUxtXR0k d6AaEC5bxoEtyiZgtIXyUU VbHFRpjj2xR1c1nz6fySWe QLUfavRPtcV9yNDraB9jMQ Gov6PgRGWwXZK1SX6zELRc TIHrnQZuhN1benCvhrHgWN GyOkC2AXIcVBQ3QZVkUGFi bSBmaXJtIGdyYXktcmVkLC DpQOA6rWGuuUhiMW26rIEz L833oSQrVWAcTQE3mWO5CC jeDQWgVvQauLZnix2hPMWe ZSBtYXNzLiAgVGhpcyBhcm VhIGFidXRzIHRoZSBwbGV1 nbWoODEGfJEac6LrQZAbwW JnlGhwZ6Ing2ZpDjxnum1e JF5cdrUnh0IdXXJqp9E0AC JteiRsQIQ2uT0sPPZneX3t mpH1IBXnAFUhNB7oWTcqTL 6sFOsbBD6fMNPkXFbhdKiu U5awS0Arf9JvrJEeDApdu2 barHTqkURkARAfe5P5hAAa IVSAwEe7gUAwNTYvhpRpuc Puc7RbByKtnC4vhJUcr1Vu cyBhcmUgaWRlbnRpZmllZC RaCK5usT6nCERuKh8tMtbg Z69uXD0rAkVcpmXwLY31VH MlbpCni4LxsDlztyByNFLc RLJ3Dg6liGXpBL8oC6Ahm9 SrlPgxjN6vlqTevGUcQHGz JNUop1VxHsJmYPEpQU7inE Dtp6GwpVvhGN2tc5Jxc5Jg IGdpdmVuIGZvciByZXNlYX AuhB5vHNzil1GoLOUbh4Qj E8XvpDswPBKgNRB8DIilfd 0coGMfQTLmndVCsemaC71s ZTpccGFyIEJsdWUgOiBwbG C0liRsrDGeJX9qXJ4dNXO0 RDKjdnCfF6j4pVHlWW3mnn thxfzwXKMesWGeXXOxF4Tk b54cB60aJVykmqfpRDDtDT DrADC5SN1ai2KypT1igWqp dXJhXHBhciBMNDogQnJvbm TprOMbqMCkH2tfHZObkxJo YWNlXHBhciBMNTogVmFzY3 OlWPQgkVCiC0kzlhrqYC1n MnLjWMtwHOGzHPR3YKKgtZ dpbUfidm6kTCuvZyhdRBQ6 CDLrsPNbMVj6XfBrEWj3rT HnEM2xSYVhMEFpd5HdoMWf XHBhciBMODogMiBpbnRhY3 UwnRhucMrgoe0qOTWppHHh ZMXiDVONZPptNY28vJFpJM 2iNDAnTNBwsf8vXRVmqKDx PIRcAELbBDWfWC5kVWJkZx BfcWXhSyDbkr35rfS7kUJc dWVccGFyIEwxMDogUGxldX AjzDGnwCCht2VvvgSnle0d BRZmlWBhUF3xh1JzZDegDx EdqI0dLPGevBThrLOuLzRa lRYtrN7hokgzIGCdOXHsKR 9RHEU9QG7qt8QmwA5iMKIu dT3bCCM0sEQwzBYhwXBcWM siEk6EKDE9NI5mv2JgrX6k E4sgn0AshJEuHSFvrlAbkI 0jyTPvWQHbpC1vKESfhbWe ceCcN0GzPIGyj9GarZyuxt iaTVVdBEP3WsDfTEd6hHVg SW0yFGVdRJYcv3DyvEGvIL ExfdCAKJNhXDZ4AmJLTAYn CDVbIUHllH82g4r5AWBsoA VxGgGeURIbcvHvlR6cPMMw hlGTNRi4NZ5sb6WtqH5nNu JvbmNodXNccGFyIEwyMDpN SOJjYJfhvGywkuDmpw6kaL JdQdftM6frcAOuIXrtNZjq LD9hgvEolMHjNTDxKZTchd JcvW9pQPeeVQZqLPUlHMic RufeGegygLBsiuW7MULaZD AvrH4pfF9eRXZjy8DbRSAv XBX6EJ0vCIJoDZYwyKKvOK IwYYNeYQKfCZpaERXuE1Lp O5JbwmZcaMGfEYUxniYbv2 glEZR8DYIrxKQjvKOkAdFb GasjYIJ6y8awQOVrkWAcEL U3VVxzsFUqWPPnMAPcOTan YfYOCuMzUfR7WPBqEhT6Gw Z7MZv9WNJUWtKyPaZjSqXn VJP1USZkDNu5BId3PYuRVf W4QBm5SXw3XUDpZWR0PTIx AWe3EKPaCBvfmLBtJGTrRZ KjQBbgTCmdO05iKkErLNUJ MrUHyX6uXFPJvRazxVAYhY HztmPJz0GfDkwmHQHgEkDb MCBSZWNlaXZlZCBmcmVzaC BsYWJlbGVkIHdpdGggdGhl LWOgvRnivzKrI0I7ddTwNT 1bGOGfBLKiB9SxMCUyA69c IZPegS9nCHRbQR7lNTNqQA YqpiYxBMm8nfeoNQYmJ9n6 IHVwcGVyIGxvYmUiIGlzIG PgAK47PKpoYC82STwvPU9r IGNtIHdoaXRlIGZpYnJvdX QsaCfuj3IdBWBbJNqbAR17 FCY3Sk6hsLGaFSElgrY1j3 VrNWiuCO2cLuzvPWGzF8Bc C2UkczZviDJbYJVglaGlw7 zrUQE1XEUvcDOogYHkBrIj HuygLBB1c5saRJRbaWNgDR P6RGpadULnQMFvICVbDNzl QjJFExYrKjT2JPLeVzF3Vk J3LAr7MIZXVaVsRgAkZsPk EHQ4KwJaIOx2YFy1HJdSJv Q3RHh5CWo3UJGrEXH2QSXj NKg2FIWfIQwxwNDoPJUvPC JzYDhxZJenL04oRxKtROXC CgFNzC0rBZZVsPaqeVKBzZ TaeuYPe3ViHflzNCFfAnOu MCBSZWNlaXZlZCBmcmVzaC BsYWJlbGVkIHdpdGggdGhl JVAutBqdztDzJ1M3gbNtGE 4gUKHdSHVsU8DhTKDoG26w PDZiqC7eVPCnMU0dEVOnPC RpYWwgbHVuZywgcmlnaHQg kVZaKDYdtP6cWTGjuGXmKQ AwLjUgeCAwLjUgeCAwLjIg N71cb8ohwBThHwzsfg90vj C7oXWobEDcOcIxP40zzgCa r4KbrSy9sUSqTEutKMCpqD 0koM2yLzEvk5ugjIzog0To dGVuZFxwYXJccGFyZFxzbC 7wEeRnx7linSy0TYehfxP5 CVIzgr03WAimASKdN6GdP3 AtSEcaBCS5SRPuKnGsUGOf CZ0EZuRnLTszDWSxMocbFT i3USp2ZZ3QTrLiHPEuNzOk XMtqXZPiTKq6GHanLL9HYU C8QSt9FJN3XYE5VUs8YSIb XHQgMiBcXGZsIFxcZiBBcm wrgCUrBE6mrBrojkHqHL0a JVg7esfqWDHyA4v4RFIoxB VyIExvYmUuXHBhclxmczIw NMAtA2OuhpLlJUAiUBEoMP crDyDoCWXiv5s6yYN2aKMs jGJ9jNFunWiuNkIkXK4wzV LpCP5lKBzzQFymrpQyz8Qy AI88hDMchdNtarPtFrs5tz zdHRHiG2g4CYXzdJQtBCrd CpNpQggcMRakbMCoQ6xzWd YxeyFwUMWkMhA5SNKmMOD3 FKKcCwGymXXoN9suQPjvpQ Hjf0SqKyI0oKk2MSNyzABw w2RpAAPod0X9LNLsqdSnqY CchTLqm1AuxXu8mAIuNFqb GKTioT4fhS7hLqWjf8oodI cpl7QpkGHuQHtxQCMmwJMa AAnljC4xXlVmb2ojiCe5DE gmxzY6KMIaas14KYmnGJDj Y4SzW7OlEWgjAEH8AEFaOx HvALNjYK6CAiTdGBieFXTz RitbJGy2YLq1DU9PRkCuMY HxUaIzFXJ9FqLxCQq2MQqq YJ3FETK1OHa9QHMcASU7LQ d0UFQiQVLvHmYlKMFdCBms AmCDprgwqBTeGF2ouQyrzn DyGSMaTBt9dIPeGR5pRGJf LXPamntymhHlSUZfZ1Sboq VkIGZyZXNoIGxhYmVsZWQg l2z5sTH6eFNuuKR2mBItqD jsHwOeUR1kjMMiJU2xBCzp LWzlozVqn3KxFX62cDQzuo BhbmQgIjRSICMxIiBpcyBh IDAuNyBjbSBhbnRocmFjb3 SvQiEupP6kdQJcj3BsPZpd aAqmTQQloZTewSIbpL43xj Xkq0UoYWZ7DSBmHOVvHBTv aY6dENM1hNIynQHdsNuqkV SfldGrbILxE2GvNXY4nsMk QENbMVtzRB8xVIAgMAHrGz YkFMzyaHIpE8V4tG6iOhOd VGhlIHNwZWNpbWVuIGlzIG QvtIyfMDq7OBZ5Kw3czVHn TECbwzRXCI88QKUdmLYvTK P2ST9lJBSvcmjxQFLkUZAe MUA9XCkdtH05kNMbBZQcBM HdcADhmKucHgptqMmrx9Di dCBcXGlkIDUxMDAyIFxcZG XyX2INRCDyHLCpAaQkJLNu XBw3RTacC8WASRAeUCOcVR V9DDa8XgD3PVo4QTYUVy9b Xli8Zof3YvO9YMQ0MTcaFP xcdCAyIFxcZmwgXFxmIEFy nZOqUIjhmpO0WBIiQyRsTL 8rEHphvPviMn0jCZ9zuGYz DPIgUoTuXvGqFAa5URYoWa Jcd5zmtAAyEIxsLMH2qQUq RMNaEVOoWRCaCZ61OBdwSG MgbmFtZSwgbWVkaWNhbCBy ZWNvcmQgbnVtYmVyIGFuZC ArINQoHgZsWFcxVKKfTO75 IGNtIGFudGhyYWNvdGljIG p3eICaYY8vHDEcy2f6qMKg SLJnSNvuSCHrb8PryBZwXe OfpCKnC4ksIYPbABbsg7Hm TUOtf1J2XBH9fFO2VAcaHU Fmf6EowARhSKDiDZSmpeTe tyCemBMtuRDigND7GSNhrD 9jCMKhPHCxmbmcTHLjH5tx xBOjMKJCoiH4uxhnJHkTEJ BQQSAoQVNDUCljbXtcZXBp S5CwE6SsltK5l8asoEycs8 VikNUuZX6mnKZjyE== INTRAOPERATIVE d0weoKPkROKdpGE8ObHvGD CONSULTATION (test code Ool7xgv0OcvBGotIJbVOpp = [id number]) cLJxkrTazu66gFB7cT68QJ 3eBSEiAaL1UBHcanY4Bzz3 CELrAKLkaKRgO036y4kxi3 trfmRneTT8lHshHKFbtymp EmM4SJduHOIsosymQFg4IJ rtWPWalOZ5ZWPnnZHrN9So JSYpBP5gxoj2YKU9SWckSL LzDrL1EZIvgVRrLLJyzYuj WOtsj161NCQ0WoQeNSUmps P4VMevLYCmU4LsK9UvCNtp OGG9IQApXGLlEYLiNPHgAR KsUGferlZ5o8xqGNDwxTGy CBV1PCvxqBFdUCZoSAIyPI uiHyIRExUoRyF7XQFsMzE2 PeX7RGf8AHQJZgSsYfUkYr OkXFW6LAqeDMi2QMp3XHtW BxV9EGNeUTWsCEjrAOX6JR LrOIi2NHRhWMbftAPnSYFm SCQgOWiqWDxoU38ttYxomF 5cZnMyMCBBLiBEaWFwaHJh S82xXSLzmcedjeZeOXOOWM BIUkFHTSwgQklPUFNZOlxw YXIgLUNBTENJRklFRCBBTk FzGFzQCKmFNSaIJZEUF2QF TEVccGFyXHBhciBSZXBvcn GzZOQyuEGAmo3jX170JNCe VFRaAwSFiYHlOTumy09qIv 54ZnCoRfTzIVZ1DLA2HFUi p8dgaDbuv5JcfNAhHKokZS FmvWTqWInjmZ7pKaLlr5qo aAu7FEklcuD2YAWnyj14HO uaKRApK3QiX2ElSKjrTHZ9 HEVkUmCwYNTwNR8EGcGlLU geACHcHpnzQBt1NDi3AT6Q WvVeEDUaFxXiTCW1IQJaKQ j0PFfzLI5BRJD9SIR1KUGg IRX3EGp0YYRsNTPdMwFsZO UuBDmgNkUVaezyyXNaPU9f lPtqvgDhJPWhBTo4xMLtFU 5vZGUuXHBhclxmczIwIExZ HIODMN3GLSByFKQOTTCYH7 4nDqviMZzRIVJVL06lWDGM IKXZASOOLqcmcHWuYS0VOU dNHFoHAVGAK7VtVJXONFgP YS1TQDafMROxdLYwYMOyiL 1xbRFaMWF0NSPaOtDJv3el kL0sRLAfQPIobIaegCYjov AzLzcvMjAyMywgYXQgMTA0 Jc21NDXftQJcRCC6DK5qBI WfoqezXRNtXDNfRKO0DYpo yD04fTNeVSSdYUOqmVQifC fzHindbLelp7RgbOBsWPcu ZIQeJWIyIVgkACEjO9CWWV LfAMUiZeFtPKCmOZj9BMxg C4XNGSGaTSWyEZPdMZK1Fk X7LPu2SFFOIb1eXttbBIze IfX9MJM8ERwjVEwdvNWvHB xcZmwgXFxmIEFyaWFsIFxc mbV6EAPaCkLhCo1zGYMcBt khPouagFMhTVPzUYIbPI0m AL3ikOUaZSJxUaWcKOHELe byJqeNXZDtIFGPSSRvEJ3A RMOUCp9UI4uWDKygPSELY1 gPUqhnFLFkDCKID1rIZODC LJEOJwGLWJaLE68QKrLNPK IjssbnCQQvYlYwz6C8OBOe JhkzTYYrRIRnpPS9oeTMqh 2yGoldbIR3HO0cBHSdPu9y VRYzHKMbyHUfEsT8QpkcGT NwA6MgZ3AdjpJklHKqYSTc hhHbi5mfSJC6FAUvzGSscP KfJpJdSfioGSU0u1mqIKFf hGZsXOD3RGsjzBLsGQTzKC XyRKnwPsPWAyGwTcZ8YMOq StW7EtH4YPm0ACRXUhOnUt AqByGeZAKiXCbzDOr7EEb6 HTbOKkM0RBMuEFHfMKSmQH P4REQyWZe5FAQvRZsckAHy VYApDTRyWJljZGvrA92pPv NxPDFHHvLUuB2bZZEQvRwr cSTLyKVacqNKb9GwMseiQV JcZnMyMCBSSUdIVCBVUFBF EjYOI4GCBPJCV14UBCzZCC HCWANRTV3iPGDMJdJMXMOS SJksQUxOHJRBT789VLIdzx GrCPNHW1FkUJIIQ3OMWFHP IcNDTV5RWICKWZYtE2DPT8 USFMEgqqPcGu0pQDKOF8Wn SURFTlRJRklFRCBJTiBQQV PAAvYSHO3VUVMbdfdtHSFn QrDmn4R0KSKqVjvpYPEzIO EupWG7jlEFnn5qWjoklIK1 JW8qQOJpRk1mRYXwEYGblJ SqGcF9QkzjUPSbY5UbX2At ulW6h4lwtRcii5ZlmIPvVT 1ccGFyfQ== MICROSCOPIC DESCRIPTION x4zqlYDoSRWjbPV4GpPwZK (test code = 3371) Hmi9jsh9MffIUjbVPiNGyd vVLivkCwyc46tLP6aC91PT 4yLBInHoL8AVJpyaA6Ruf6 GKQtPCJtgHNlB326o7jac5 qtnePjpLQ9lImyGEVvquta UhO2UDqqNLZpdimbSSk2NX jdWHNpwMS5TUKxdVLnC9Xs ALFmCH8wsfe7FIG2FHcpIB JiGuK9PGXpvJWoGCOdvGur WFjeo826BPF1UcKzNPVvyw QbyXcgfA3wOkWnXSKBGTQz r9QyRQFzfMGwlR== [id number] 16:43:29 Test Item Value Reference Range Interpretation Comments Case Report (test code Surgical Pathology = 104) Report Case: [id number] Authorizing Provider: Izabela Galvan Jr., Collected: 08/15/2022 09:30 AM Ordering Location: [facility] Received: 08/15/2022 09:37 AM PERIOPERATIVE SERVICES [...] lymph node #2 ADDENDUM (test code = [id number] 3381) Vtm5tco8XabUXjkEHoFFqa xCYlqqZtaa23fBR6eW18RF 6zNGAlLvS4UGPtiwS5Ped4 JPGnWLPqnOLnP595a5yrt8 ipqnIoqQH8rLfzQJHqkrfx IcV0PPtgNXPomqxeQPv9HK joCNGpiMI6PNSbbMNeL9Pj FWZyVK4ooab2VIH6DPiyIN QgOwN0LFGtcTSeMLWdmUvb ACrly974HAJ5GkJdKPJwnw JebCxqsD7mUlDhRIJLsNpp IGFkZGVuZHVtIGlzIGJlaW 6cNWhms4IgYYG8asYqFXIy vhBuryWkyBu2zmUkNkRVCY xlUTTnxN19wl7ieRGztvQy TWZon9ByCFChRFItMqSeM4 Qnf06cW6OqAQEyy6BqnR8b aWVzLlxwYXJccGFyIFJFU1 VMVDogUERMLTEgKDIyQzMg Z7blsjWmIlLcdTTaJXQvpf ELFDbqEAOlNqMDDxPeqP1l QSd2NZ5KDBAGLZSLBLELBF DeHJIeetRDMNCuC5GSPnO1 IDBccGFyXHBhciBQbGVhc2 Buj6BgRTI9aSRpdPHoFYLe GG3sACJhxjFix4S4QMPftd KdsXL2bMIjZUFtaVTbaQMy cGFyXHBhcmRccGFyfQ== DIAGNOSIS (test code = u4jeqNWtPLKhi9ttDRPdjK 3220) FuZzEwMzNcZnRuYmpcdWMx IHtccnRmMVxlcGljOTYwMl pmvhHeSPKbyZDbB7Txflfu POqbBY8iKB6jnLmeyKTltM PiFEDdOuSsv5myy754uSQy w6ddJEWYxyqcjQy9nEgdC2 5ut9Z0ZzyuL0nyAGHtAQlf kpUrqkC0PRKalLJlOEi6HZ BhcGVydzEyMjQwXHBhcGVy aNZ6ISJkZH0dkmhsCZktLE zjVRTucoU9OHFljQFaN9Ta QQLtVA5tqcfzWYY1JUnvGS JfDLK1IdCjMMFle0Zdhjs6 MjBccGFyZFxwbGFpblxmcz RrZPQmOEHFAUTJSWCJX60t WRQKP9VYEVGAO0NfWjMFQb NSQYAKM3EGQ950STHrkyWd RCCpYuORSNPVVzCvIy7NRB 4KXRlEToXQI3dpyYSjTDQg JZAIL4RNSfsBYuEAHkAkL7 tQP45LZjBBWqDFSD9WCEZR G09jlZRpODGoraUQArVeXT eFKFjpBg3GJApaR2GYDDuW MeSoOHYIRSVXEWOHF0KII4 46XHBhciAgLSAgTUVUQVNU WMCTDeIMIEWUVY7SKlSUJD LYGO9HCXIqPA9EN7lVVB8V RUSzI4AhXrRSNQ3JLDVKA1 CXTeJuCX0kAFghFYXaqWOs WODcIWFKIA4BKHTIF7OHTK VOBOLUUY8TAVnmMKQSY8LL JJsOMpGOX7YpSxNJYuLKHU EHA9EZZ168SLOtyvEcJELo P36JCEZUKabBBzGFEL7XNQ FLP7QHKFqiLaQgOPAbfpyk YXJkXHBhciBELiAgTFlNUE hpEy1MKRelL4GNPPnQUpQ0 YTTvBQOUKTXMJ0ABZ275QZ XmnkExCAHhB91JFRVIWvoR GeJBSS9AFVVRB5HLPTwwQk EpXHBhclxwYXJkXHBhciBF LxTkZFhNCIvzSe4KODfsG9 LARTxTLrR4DUVlUXKIWPQR M5NXI409XQHjpySiSMKnQ3 3BLNCBEimOUwINGE3DGAUA U1VXRGrvGqFdRDJpclbtQM JkXHBhciBGLiAgTFlNUEgg Li2TTVkaC4YLXCjDEvZiRX JRMFRsIIJSUGJOY5LRJ673 BWPssmXdYTWwK74XSQECGt fCVxNTOK0HXPXBZ7CVCSxr LzEpXHBhclxwYXJkXHBhci MTDpNfFKvMYHmlKo4DDFcl R9KAQToWUsIaZHXRVVNeHJ HMOYICC0WHF596YUIprxVd IKSsP93ZTIRTWsfRRoXWVM 1RZNHHN9NFCLtdNhQfCKSj clxwYXJkXHBhciBILiAgTF zFIStoUq6DVBtwB8ZITWfI TiAxMSBSICMzLCBSRVNFQ1 ZUM692DBYyrzErSADlG58W GQNQVglPXfOOZQ8DUHBDI6 RFICgwLzEpXHBhclxwYXJk XHBhciBJLiAgTFlNUEggTk 9HJQvdU9TSUFtHBgXxFXKM SMU1SPDQJWAWH4VNT714UR QcnsCiKZIzO69WSRGQKqwJ LtGUIE8SJNIIG1NZLXsbDy EpXHBhclxwYXJkXHBhciBK LiAgTFVORywgUklHSFQgVV IWHXLmHZ5KIFgcQtIMPjLT KGIRLD2KNevHCkQWXI7MFf JIHMqfQoYDFlTASRERD7XW B987QPPvbaIfTGPzG9BLSH 1XMTSfG2MQKDADLKYOEI6U YYDpFQUUBhSCOB6KQulQWc SqPgVZXSCGLzV5QGYBFDVI TUVOUyBNLCBOLCBPKVxwYX ElvWBxYUjiJAHCJI2SXEHP EVqFBYWXFEMYPgUNO5QFXE TKZj2EY6uRDOeePGNSG1xM IENBUlRJTEFHRSwgRlJPWk YHIEBAA4FSG897NWWrjxBv NGWeXGHWS7XqHNWKE8ZKHL BTWjXJRE0XQUHNAIWiA5KF Z5HUDOFaakGbHEQiUsWXCm WXRUPURW7UMtrRMkEJLh8A CFQmJF8BT5GUMAPJYPRWCo FUFWuVE00BBoBUYHGnltsx KVDtGF3kWIqDSnxpVFEEQ1 hUIFVQUEVSIExPQkUsIExP TiYUUC6EXPtruJOxVDToCQ x+LSBcfklOVkFTSVZFIFNR AVKJD8RTZLOCWRzqT7FUJ0 uDW25DWGCDD2ZVXnUXPTQQ NxLKR42ADXotIXiJTeNTQC 2QUBTEWFWgpQUzOX7qKPd+ ZEOWL9CbTQXXC1IFYIJlOH 2kSRxmWu96GXbtNY8lAXLJ XHBhclx+WCRjwcTQQW7MUD vMAbTNNNRfIdeHW1KLWRtl UExFVVJBXHBhciAgLSAgQU RIRVJFTlQgUEFSSUVUQUwg MAmJBARWEDBEPsmITn4YRe VEXHBhclx+LSBcfkxZTVBI A7IHP6ATADAAPLtEJnWOYJ 2QINcKFVeCEA5DFNYDDYSw nAKaPM0oPWc+QlJPTkNISU FMLCBWQVNDVUxBUiBBTkQg JNKOND1DHFsPILyzFtINTL QXSW9HOF6IScqSHmSsUE9L X9QLMROTQGIMFuJPSFgEP9 0JOjBWHYSipxy6JXFoJOYL Fd6CE1gGLWntUYZPV1dSHp OzUsBnA57eAZbXLBgaWDOw rJRhTG3pCrZWA9RWHRGgTA EGQ1wUClXjJwSmQ52jZGqF DDloJOUriAWjSB0jTLOXZR 5PGBmAWLytLOFAU2iPJfUy YbPeA08fTBaAWQniCAMaE1 PwESOwQKPFUPPAC7LPCHdV JSOSWSDWK4XZWOTANeZIHz 9NQSBJTlZPTFZJTkcgMSBP OkY6MWgFHNPZDS3BMVMAKF enGrLxQREfshfmUeHvCQ8h HSMBXR9VS3xWHCUqSHKCXx DIEPZYCbZIRK6XKTYZMXAI CIAOShbHKb3RG0qIX2fTLw ZTEZUIQVsTG5iIJASTZMUu rVOlTSGnNHZtNi0ZEKqyXX gUFv1TQ64JOHKpEX7XKRsS L58MIM2WYZSydgp+LSBcfl LBHLoWZY4ZBRArL8GNS3tC KeguwUJ4CePCyZIoKZzCRv F7eAfbGNTmRUkeZzAdHDxf KDJzkBOxCFhdFVJeUH4mNJ fDTuszWNOOP9lESOPSMMRL DVdRDwCeOZCOH09WASiIRM AUEEWXMX0aNRQYHlMJFbPi KQkOTNWFWLcpOVXQO4TLPX lPTjpccGFyICAtICBORUdB FUdVZZYCY6XhHWAWFQaRGE 8EBUlvMSDqaQYrIQ9oSUUZ DP6EXWIHDTtOEPHBXRAQQb BQG6GJYNGLOs6NN7eQLUsp JOVIM6cEGW9XWNLGOG4CZP MXJCOYJTdzVXMGX1SRKKxM TjpccGFyICAtICBORUdBVE rWMXMRC5SgJCGJNPbOIL2J WVxwYXJccGFyXHBhcmQgTy 0pLNrCXknxSLYJF9fJQRSI AQBOHTdXPsWlWWIDE48JXJ sGWOWGAFBYDZ2sAINJKdYD TkUsIEZJTkFMLCBSRVNFQ1 TWW739TZHfakVpGMYgPaCS VEPUEbNmGh9FZV3GCJsDSg VWR2lyeJHbQSKxshhfTBCh VETlYNWMYJ0XXXDRT3NZFW UKXDNARA1YDHMMOVLkEAZE QCKTY4ZQA486RDRzqvVgZK LCUMNDEHIPFtoBNzDNPO1K ZJICM7RTOyWyUT88BCfnXQ IrvRPcFICnYRvSVTIDLZ0B JOQiEMAWDLGNO24vTBIlCh FwRJLQW2YETMmHGnpgxKDb ICAtICBPTkUgQkVOSUdOIE sDURDIPK8SVEHqUPKbWDhp zJOrsHpuewBfIKitn6SmUF gyZCQsEM2xjQzhNUBxQV4s QSYiQ4trfF8kttx5RqHrBK VlQdZ1MANokiH5Dtg0LVAi GCunc6gbv8QqTSLxLAt2wZ xoLiGpAPGvr6lnkuCcYvDl AEWyWVUiRMGyhELxQ275j3 uyu3adnhBujVW9HHVcSFG8 VIexdnAedyM3WVphnUCoHj W8PPaipmCsKZiycpXlwlLs Wvp9XAWkS221OKI1yBrzy0 jkQHC9RFDrFNPqEhRtVd4h uWWcN232DNTaGQLECZPzhI l9ULXliuIgbgHmyELCc945 I062y1iuTLNpiqPvxNxEjd zed4xcE505NRVvvQCrcpTv PrEjZNYseFTjrQK3OYWqGH 3fmumlPOpvMEmqEPLdupW2 JTNkkLItD7PuHFCsEA2uye rwWWR3PKckCRZwJEO9QjUf BBTww3Vymrf2OmPrih9gev 56ICQ4v3YztHbvVAP0RXR4 SmWjVt7dmEJyISIoVQ8wKs NduBDlYNYqoi76yFypFZba NYA4QIZtvlByg1Qre0nnTh ChenLpV0ieW7SsWAKpPTLr ZENrKnElmgCfc5Tpl8ZooV FbqCc6m0kyPQXnXBIauKep o0quRLA3DGXduJClV2tkrD 8wRNWhWD0sprwdf6lzYGdg BFchKDKsgUU1urS4OODmrO VcH5EqwM5sKBVzNOztCNSq mqe6MtIfGf9fmOBypQjyHU xzYmtwYWdlXHBnbmNvbnRc cGduZGVjXHBsYWluXHBsYW luXGYwXGZzMjRccWxcbGFu ZzEwMzNcaGljaFxmMVxkYm FqLSEgTLzdO2tmNbBzPjMw Wgg6FUTndQPjTHStFoc8HJ LkkADoGJFJuUggpO5cKHLm bGduyV4wdJD2UBOgofSqbO EQsL1xSFHKnO2uOrX4KOFe Lad4HPW1ZsHzyZLuzM9= COMMENT (test code = k9jqzGJvSBMauHJ9YhHyMW 3601) Heo0bvq9XjeBNpbJIeVUhm fGLikdJlzv99zGK4aS32UJ 9pRRUfXaP2ALDkxtC7Ouc5 FVElJSBvfQDcL084v4rfh1 gcnmIjtQB8bFtmLPDxyvha BiL9OLfsGTMvxvanMWn9YO zwKRHbhFB5TADooAPtG3Dk ZLIuEW4dmpk5UGB1IQddBF TdNeV8YNMixAJrCLQdsKlv AVvtl290BON2HkSiASWymr OisZvtvN0xUtPiXROFaF3r BDBxSWYzs9N7JXi7IMWdsw KMmA9boeoqXIKfUMSvjvEQ a5CmOOj9RZpjMCsfDLGuxK UoPTW6jS6pWCprpLbeEcFn p5JytNY1urBGLS1tXD0zcS raxcGes7SlOmovjHCqv4Rs OUOyc5MwqxczQIKyj6VvyI Jik9hslGCnNZEqRYEensNy WWXeylHgtkKsGKSnltC7yG 5ccGFyfQ== SYNOPTIC REPORT (test LUNGLUNG: RESECTION - code = 5765) All Znkmnljvb4ep Edition - Protocol posted: 03/01/2022 SPECIMEN Procedure: [...] pN Category: pN1 CPT Code(s) (test code s9eobTOtYIBkaRQ0ArDcVV = 3357) Yjj2xkq7JnzDTyqKWoMBdl wYCxvvKzkd02gID1tP36RI 7aQQLcEqM1BOYrxdN6Ohn1 ZZUrMZGplMGyR678z9ock0 syzvTofKD9yCqcWEYojzxx OcF5TEeiGMZrklhpBRb9HZ qiCNXeiXX8VEFluUXcE8Hc SEIrXG7zajq5IQF9KOwjIM SmWwB8EZKpkAFlEHWtlAnn TCisc768HCY0VxTdHVFfjh VawSumeK7sTgKlPOQ7GCLv UDw2KFHbchK1UWHaX2vgEF DtctO2SXKmSMfwDIWdHIgj MDVYMTRccGFyfQ== GROSS DESCRIPTION (test z0rnyQUjGURgfDJ8MzJoUG code = [id number]) Unz5yof4RncQQuzYXrZYxj cSDcbcAmqo30cXN1tE45UW 9lXUPvGdB8KOUbqmW4Ivl9 UUMqVVXfzWKiC371s4mhs0 zqglOxqTO3VOYiVJEhX7Tr HN4aDSCktKYhK95wrICxWM F9BUIfAWJbuJJzPXOkWWS1 JTSzmXNgX9cnDEVlJX7kwq lqPMstYSlqUOGbjVU0FMKg hCKfC2MjSCBlKXirWFUzez q7IlLiMw5wjDGzdRwwOGfm IHXkw2sjHZVzlWMzEPZ8ZY ibqBTrPADtPJOlPYi5VEDd DVmztJDlMC4fvSfbOrszhK wid5TfjBEdGWfrQVCjJIYl HPldXIDtR2YLVRHxZFMnGo VtPLHbZRy2FGftB7GGRIIg TLVyCURsUGr4EfK4KYs8MQ KIKw6cMls9SFsxPNBwTNC6 OTkxIFxcdCAyIFxcZmwgXF odPHUvoDCaAYydzrK9PDSu GNlaDRNoJrDlCR3xNQwfzC hyYWdtLlxwYXJcZnMyMCBU iOPqg8OxS4haIK4jmOUjdq ReMEm1WQWaNrDkl2uwIc9u FAJbm2bjbmUdSRK3bJ3vHR FiZYfaw7SbiegtpYSjGBwx PAT4fWErGIGxAZEfWNDmEV 50XCdiNHMgbmFtZSwgTVJO IGFuZCAiZGlhcGhyYWdtIi BpcyBhIDIgeCAwLjggeCAw TjNoO70gwUKdAIk6sAVmQA VmehY5LVpnrEGwFHViiMSj u5CxSkU7tCKntPLsg2WayQ a5iIBrAOfkWDMglW1cgF8l AhYbHWAok0cazGapc3NcrU EdAOxfGILvyCVjRAfujF0s NkTdz5qetZk4IKuvdpK1TQ Piun62KIqpJILfY9HmE4Sh AAvgHYQ9LWFqIjNyBKNcPF 4GEkHiMFlfWJXoVzmaAKk2 SZm1ZI0LTlOdHMMeJbHpMV N2XmIiBKp4RTltNQ0CWBC3 IVV4BZleNNO0MXi7QOZpAI QgMiBcXGZsIFxcZiBBcmlh aBYxMD8xvYminrJpSXTsFC r8vBUfOZ2rSFDtVSApbcmq czIwXGNmMSBSZWNlaXZlZC DndfDfo3ThRDlchoPjDCEh bGVkIHdpdGggdGhlIHBhdG iwdmPoO7Z7qrOiNG4jNJEh KKEqA0OcUWUzX98hTTCxkW 6nYAYbKN1nUEr4IYXrDXOn JzkzMTAgUiIgYXJlIDIgYW 57kUBfU734tAYxiVuuhWnm nr3jSTSxdKVqn6IbuL2uLN PtIKDmwJDjevOiDL52GZJn LiAgVGhlIGxhcmdlciBseW 2psXVka3TvVEpkUYAxl4Nd tMKxBERvVGF6dFXed6WaO1 hlYO4ntWXhTK83eQKizOxx z5SzrKb6xPYrFhokFQMvyX LsBXLtA8Aoe01iX48cTYvn cGFyIEIxOiAxIGludGFjdC LquU3wuSBkp0LzBFLgjuDL Wh8ORgojEXRxkB9fhJOxs1 FdRFXvvLYzL5JxNSbcAROa Z2UsR3NmceJrpOObJHYcal Rme7zlTZU9DJEeoXOnoMCa PiKjCuuwGVL7c6kxQMXanA XsMZH5PMtxaLCaPENqDGFw IWcqKhVPCwAlTrL3NYTdPu N8EmL5ITc6GRVNLhQaBoVp KuHzRST3GEGzBDw4MYo5FX kQDyI4RYcrKKYwKwUhPOU2 NFVdHZc4LVJgUQrarGRrVU CtQCEzFHliDLbeB00sWmIk FUzdEuMvOj8hFJosqMbpLp 9eIN6duUIoSSNsSlNjVAhd IHNwZWNpbWVuIGlzIHJlY2 VpdmVkIGZyZXNoIGZvciBm xb14LM5if0KhlAzippJqsC Lonz7gjZXlMVtsFkLjIEVe u5u1oKR4eQAvfAB9qWPhfG zzNaXrJK5uyKJgXA5NHsGi lqJwQbp7OmJaboZmPOAoAO X6SERiDDO5RJZkDqMirNWi mpIeadFup0PiUfAyhB9krX Ohz1FbWtIoHJlqPNLyAWIn hXZrNZtvXZQsq1LwcYWmPO FuZCBhIHRvdWNoIHByZXAg nXZitYBaFM9gABAaVJAmjG KsjO4untGrvuWydpEmrmIz nXIhkWYtqYN8GLAzfC1gEi JtNnPhe2xfbAncl4ZgpEJk GFszQAMuxJMfUOlauP9eFu Xfv7fafJa7AIihgjW1PQXv zq13LMgeVTJjZ0BlW1MrTI nvOWZ9RSFfPpRrFEWwUU6P FpTjJLdhMBJgRxpoREa8LA u0QC9FYuXxTFNjKwKzCHml KOUgNCe0CZemVK7DRHR8YZ S6CUYnGgO5JAq6TBJrCENa MiBcXGZsIFxcZiBBcmlhbC DmPZ6ypVuaajLjYZJnUBo1 qHIdTK1wOJYpMZXqiviiqi MuWRSwD4XndlLeUPCzOLOy KDxhIfGbMHWcv9a6iVG5sG HweRC3sNFmlBrzAeGmWO3u oSWfVM0kZYvjOKrttyLnr9 IqXB85zBHnkkSgcmSmFlm6 IiBpcyBhIDEuOSBjbSBwcm E7dJ47o2i9UOxbY4pqPCQp UY58hGAfP471iJKdkAwblZ yzps4tVEC1tAY1IIloFHPp s3DyiUUqSLJmGMBsqeAprl EgvHZovKZssJC5KXJcuU3w IDOlSAYyd3soyKazs1KghJ AlBIowCGOxwGEjBIbodR2h NjHcg2gkkWx0RNbrddJ1HQ Lcpu05FEnmZNGkI6AbO1Hm UUqtLES6FAUcUhZqOEZfIG 6UOdPrGQnhDEEoPszxGEd3 CLo6HE6RDoPxWQEqUgCzTI fqUNRnTXq2FYclZY0YMXJ4 BQA2JKNzTSB2GSj4WGTcET QgMiBcXGZsIFxcZiBBcmlh jQAzBB3yzQkbakJyEHHdBE k7tNMpHJ7rIHYuAUZfffad sfEtWMAmC9CjuzNtRQDqPR LrOKaqJjFoXBAgm6j5qOZ1 kCQeiBT9wEWldZruRpYoKO 5irBLvCF4zCOwnKMalxrTz t9HqVN25lGBpauScryYdSh g8KZOvFuEjpxVkALNvVuJ2 YVQhLdI2OOXgJOFpgXHxvj FtcoAga9BdTcUttT5rxOMm d8MuIKxdlDctDDOjlTNtoY WepA86ogMvz3VeGZS0ZJEk JYYoCKKgjC4mONI0qGOypM AuSBMKrWJatO8qejEmfgHt IBXsYEkzgQCyILF8fB4yNN HuUE8uDDHdjDslVPn8SQN3 Xj4hmJMdZAUqcfNIWS3CQL 01XDToaUHcEQR2NX0uNVVq hglkWAVcYIHiZRL7OLepsW 11bHQwXGZzMTZccGFyfXtc TvtqhZwyu3WzsOXuSQylZZ OiGHMlMRdxVBHoH4KSBMOk FKBrHqOqIWOwIGf9UCkiW2 ZTICIgIDMzMDAyNDgzIiA5 GFo3DBVGDy5hAoe4JtF5PQ x1LIA9GDdbNVhiuCAuMFhw ZmwgXFxmIEFyaWFsIFxcbm I9HBQyArAzDk6yDWiblTmi Kc8jXW7mbHIdJAHoAwObWd NsSBu7VVKpOsLqj3lqfNEh BZhvCWK3gVJqTSKeTEQeWY GnAD75AEmsDFHpepZaHHge bWVkaWNhbCByZWNvcmQgbn VtYmVyIGFuZCAiMTEgUiAj NTEqhHQuUJRhAxHmO97fFM 41rBUfX456cIKolDnpwWot ua9eROGbxRUxtBU2KEOmiS 6rxG13znLlvmCXWH34ZKMk aSCbHGU7IA4gMDHqezbuMU LeUHAhKKU6LHhlkQ00aFJd XGZzMTZccGFyfXtcKlxlcG cyn5YhvKGwCMeeHUOaSICl KDtoVKYuQ4JOJMPuFVMrUr ArILVkKOa7GIxhB4KZKZGw RTKnJAOxJTXuNxE8LVy5QG KYWu5cIdw8HpM1SnMkOAO5 OTkxIFxcdCAyIFxcZmwgXF qpNTFggNIbYEyjytX1YPRs UcIkTv8jXQvtfGooGy1lDV 8anLSwYXVzNwWuTiKdNDm1 TCLcWdXjv4pthMAmKCrhEU W0nQBoGRSfHKPvPCDpOP97 XCdiNHMgbmFtZSwgbWVkaW NhbCByZWNvcmQgbnVtYmVy IGFuZCAiMTEgUiAjMiIgaX KwWVQqNvweX73bQY03kPPh U550wWCpqXncfEbufq2lHQ O5eDX7HSgoTKNmy4MebNHg IGFuZCBlbnRpcmVseSBzdW PbmOU4FLFsfF4gYoMlFtMo h2ihnVmzb1FlqYRyZJeuUD OwzKSyYNuzpA1bYiPhx8sd oIt9QYaedbZ6TSRnpp97HS gcMRUsV5MtU6AsLQbaODP7 HEStBiPtDFOpCE0PZpOiUL yoAEBzDrvxGLi9TMt0EP2F UyAiICAzMzAwMzAwNiIgOT q3ONzdMK0JUNF4UVX5RIBe VJT7XCh3CEKsXNIkPcRiZX OqKRnzChYYndndkKMmMT3g eCdomaZlZKddCPr1cRMdUS 5vZGUuXHBhclxmczIwIFJl W1XmeoSdFHVyHFCzMLqiUf KxNJYdg9c8aKE6zLHdsAI3 cOMngEcvXzFsGF4pyUYvZK 8pSSxmHDqheiWvh1QvIL95 bWJlciBhbmQgIjExIFIgIz LoBBxuYHSiFN9yYXWlXVXr fIegEKHktIoqHMg2qMSpJZ 5vZGUgdGhhdCBpcyBiaXNl L2OgWPHuexPfFI47dTCfbU xby7ZjiUb8sVNuRKnhNCho XpwkRQIeA6SgZ8SvcjHacZ NgWXYrjhAyg5iyAAJ8QXDy vCCzdCXeJkIuUxukAPG8w3 deNSEcbBGcYHS7NLmdgJVj NTEwMDIgXFxkYiBPVlIgIi U1QPViUdG7AbP2BNb2WKMF VlMgIiAgMzMwMDMwMDciID e2MZb5NTsNFbX1MTjzYgj1 KonsENY5DDHxBJv6RAPlIZ xmbCBcXGYgQXJpYWwgXFxu L95bExAnXWJODnGWmV1cwS KWy4LwBfxlLLTuNhQaMRQD ZWNlaXZlZCBmcmVzaCBsYW JlbGVkIHdpdGggdGhlIHBh mIcprpYpW3T1tmUxOJ0aLE WbASGlO1YfQTOgD03gXTXh tP3sKCZnQF6cZUIxBOLTPN L0ByImfuCbCXTeDHTxjPXm riPfrhTaq8XjBiYubI7icR Psh9FuGOZrONxhFQ44ZGJr uB65kjXrJKZcFCAcidVbcD OdqWL1QXOqpG5qkF74joIr ylZOWN51FBNscMFrCXB3CV 3gYDCrmnxvNALgLVCnTGI0 QChtiF97zCBuIFErGHUicM StpYkjPlxwnUkqg2YfrYUu XGlkIDUxMDAyIFxcZGIgT1 ZSICIgODAxMzMyOCIgOTk5 QEepG8RVACMdDCEhSOTqXV F6HtJ2FOl5OBOQMy7qVub3 RuR2DZX1DUS2PYxeDYafoL AyIFxcZmwgXFxmIEFyaWFs WLvpwzB8WPIdMhEhMj2iTG VuZywgUmlnaHQgVXBwZXIg MU6sJM9aiCOtLOGbGbBcT3 YuQPJrUXNauQKevL2iucHe cyByZWNlaXZlZCBmcmVzaC Str5MtWbZddsKtZZCxW1Ke w85cJBpnD37mn9cgRTHdZA JlbGVkIHdpdGggdGhlIHBh dGsbyvArV0D7zyVkRC8tSP QAUv9qRP2hNDEcvZ8eBIWa cKjegCI6oVWwpjJpc4HrSf NaacJjZQSsTcV8FTFpnB3j tgRnRxG4SKUmHyFdiDVxmF 0hBKXxGiXpiMkkm7YwULSp IOidJS91DWQ8Me6pmVJeFB ExemR9e7KgDOxxSEPBGTsa HvnmOYYqQ5PqQ2QofmJfbJ OnQOYxzlOkn6plBGI0RAFl vSQhiBXeMjUoKkciGJY6k0 foJUVvvUIkFZQ2DRqhrPZp NTEwMDIgXFxkYiBPVlIgIi W4APJtEmL0IlO6LJo4CIGY VlMgIiAgMzMwMDQwMDciID l3UGl3NWfJRkL0URblHpZ0 TYApSTF9GXHjHAl7NSEvXH xmbCBcXGYgQXJpYWwgXFxu S30wXdQvNXjkReHeLw5fNJ VuZywgUmlnaHQgVXBwZXIg ZP3cEQ1gdOWgRIDrRoKyG3 ZmGEZsSSHwxCKgjH5luqWt cyByZWNlaXZlZCBmcmVzaC Fja2SsAzDpupRxIHAgM2Nv i53tBKaxR78mc3oaQYZuNI JlbGVkIHdpdGggdGhlIHBh qYuzteWlZ7E4zfKwKQ9hFC LLGf9nTM6lBHVnoN1iIFVy tXzvbNJ4mLEnirApy9SnAw PulpOfAPCtEjY4HMHaPvY6 QPCrYePtePBsmJ6qSXToMa AifOxfj5JlAZKfHLnyLD41 VFU5Mv1viHXzNHTvkdH7y4 HzKQfsSBnySolhUKXkF2Uz I8EilqLcvNAhZLVmbpZer5 fpVWU1XYZwnOFfjIFzLfIg XesrLPC7c7ugVRUyoZWsKT Z2ULwsvXTmIEWuOEMcSKem UdEMMxBjInE2ZBJgIcG9No I4PUe7NKXWXiMgBbTjOjJq OIVmYhWuOFv6PXx8DDoRZg Y1XYfqAJM5QSUpHBT0WZSg OYz0AEGgLElyqDHeFZSfAI GtZHlaGOawC64oRxTyNSew NsDqDY5sZSWlKtikJwyozC MoASQjZPDhSH7gGL6fxYDc QSWsYfVcR4HaLKOrF3Jgle VkIGZyZXNoIGxhYmVsZWQg q3p3uXP3xPAvuIS4yXGguS lcYX7dxCMaBR1HZoPhaoYm GNg0huszKVJOZWCdrLKkPA R6RKYuOqmrAYQ0LSZvBtci pRX0WrPbH24ntXRyCoFkt5 AvI4GszBitdIWlhtWjY7Hb AHObvDW0qMHrd8Gky58aFT J8QVTch19gwXLtSwc+XH5B nSMhBHVgO9DeloAyWKymJL XrYNGkHX8gDVUhoqUolR5h fkEbkzWaBUWqPDY2BSZqII Y5KUHlVlWcuOWeyU5dBAhw aXRlIGZpYnJvbWVtYnJhbm 36cfV9tEGypSPuo8v1kGTi GJSuKHxzYLUay3CrdEWjBw KnsKOpU5skSVUyUUtfq9Il RMDui5V9DP2bxJCpLTAydy BUaGUgcGxldXJhbCBzdXJm YWNlIGhhcyBhIHNtYWxsIG Rfu6GdsVFnTyZyWYcmz4Yt JZOps8L0LHZldaA0tUZhNM 38QKTgk8Kuj9UbUaIhTQId WhF3lTKtASSesG0oLNyjoD vpqmZ7sSDycQrpGBZyPRWn a7ZtbLrfKRZuiWUkaQ3mLW BsZXVyYSBpcyBhbiBhcmVh ZM9qVIW0V1vxvomnTk9yLW BzHVIeDJ6ywC5togylrQma hJNcOCciNHHxMPcqh19jm2 SpWAZpNLYuBWsikIY7fVNk NNMsOULjXF2jRBVjJuDdz5 xkNEBvXNFtNSfoj9tjmeZr ICBUaGUgbHVuZyBpcyBzZX KdNXazxQHlPLN4tR9gPLIr aV9dzuC2SHTmUCYuROphJt L8NISvDFQ3XNDxULDywRLu cYuhAIGzhQ9iMZjpA7UxdY 61rUz2JCZ4hyT8VLecd7kl USVsms5rPUXcF9VozKshqz Fsfk76cPMmjZAwauCbGKOe cB6nXFXhMEFszFX5brSoIS K6V2obxfmhOnTvkwK8uTXt EF52KKXel8Jcj9XmHmWrCK 5cfiBUaGUgbWFzcyBpcyAx NnQpVnQggID9tRUaGzLgxc UoiQUiQL1jbkkskuzjZV40 GVZxNBOii35rgFpgTAH2lK 1vbmFyeSBhcnRlcnkgbWFy F3rdUFPfnfSdZEK0xKUegL hlIHBsZXVyYSBhbmQgdGhl KHV6xVJvuKGoJPGkaAWse4 SwlFksf0UtPoMmBLmvYI0v j0MzNE7zptXyjeFumIGzPN MnYWIkse2oA8i5ez2lqBCs BCHocgFKiuF9kJOmqS5iUC Cdp0LlBWXiCML8SG1oVUZh UIVzuQWncG9zjtAgczHiRC MlWqL1TBYjQXI9XIVnKKXf bSBmaXJtIGdyYXktcmVkLC HmTWH8kHRsbYexTD32uJCb S548yOEhUVVeIID5vDG1UY vbYLNcJoVcmVDmaz3oLMSe ZSBtYXNzLiAgVGhpcyBhcm VhIGFidXRzIHRoZSBwbGV1 yqYlXUYXlQZax4ZeIPTxtA LsuTbgT7Kck4SwZbuylg4n OC5lpsVjl3QlFCGsq8J4EB JlfpMqNJD9xC3jJMMrlE6v vhS5TOXtETZgFR0lHEaxFX 0zEIxwIQ5fEURhGOmegNxp H9ouT6Rfe8LlyBZjHFyvw1 hliAKcdIBpCYTlo3M6mWJf TLWTtQt8zGTlPCGikuZeea Ytg7PwJzVoxI0qtFBzt0Zt cyBhcmUgaWRlbnRpZmllZC GlYT5wbI3uSOFtKe9jYkwn Y65iJL6fXmCmyqZeOP43AM VggsWwx5NrwWwldrMrHYJh QNW7Bv9ccPMrEM2xW0Ktl7 ClmLrxjC7hfrDarYYkBFXv ACNke7BwWcBbEBNtER8zqE Mje6AimPppHF0dp5Rcr0Lv IGdpdmVuIGZvciByZXNlYX EjhQ9qGVyuq3XkLTTjl6Ay N9AbjWzxAXRwEFX1YJnmsg 0rrKBxFVKjynREfrjsM24x ZTpccGFyIEJsdWUgOiBwbG P0itAnuKHwRU5mPM2wNAI1 SGLvtpNlJ9w1qJTbJT5jds xngyshKDVciFBhTXQmX6Qh n04zY12iNJpyrefuFGUtMF UgINX1WH9nh7NhkQ0zpNgs dXJhXHBhciBMNDogQnJvbm VmuYWhdDSvT1suMNPzrwAf YWNlXHBhciBMNTogVmFzY3 FhWYEofSCvW6vdkhmfGP0m YmFhUVdlABUaUPC6DFTqsX obqQqokm4kIPobLvvyFPM1 EWNkwOFvOMi3HzVnXTn8kY JqWS2xRBYkWZRoc4EyzRFb XHBhciBMODogMiBpbnRhY3 SmxFmssHkcgu7zDNJnaRVe HBAmLVCJAAiyRM85kIQlMI 7iFMZwTKFfiy1hATHezEBe KGYzTAHhRIOjSD8eZQLxQn OuyCReEgTxxj75ppY2kYOf dWVccGFyIEwxMDogUGxldX YnsTLuaMOlz0WkeyReof5z LVKyrNPyPV2tc7StBPytFz RanG0rPDWntASxbJSvJkXy yJShmG2talmbPGZbBPLoSN 0JXTF8IK4gu1UtfU6pKUUo mK3lTHK1sVZmkVBseHVjZI jyGz7SANH2ID8hs4DgsY1x X3fzr0XxwQNnOFBngbDomL 6kuOFyOJLfjP5mRYEsqwNy mhElC3ZtSFXyd0YfnOqtvg yoGKXfARM1MuKgKUm3dWEg TS9tXMLoIIIbz5WlfPEgBP BuajOPCPIzLLI6SgQNYCNs KSJeFHCxcJ90l1i5LZYoeC VhRkRcEEXkwmDiyH8kFWFy gcZBRTa5IJ6hn2AxvW3nXh JvbmNodXNccGFyIEwyMDpN XMWvZOfaaWdvivAnea3woL OxShpkC0bosUIwXRrkJSxq TX1wwgEyyESlSFSpUEObov DfwD0uBEiyNERqCGOrBNnl GbvwOywwrUSalvP0DUVvKA FkaJ7foM6hHEDzr1YsELOw HYN0NJ2pQKFkRPJdnRKaQN YfXTSvUYGtOMajHBFbT7Lt H4FpraKlsKQrKOHzwxNgw7 jgGPF3FTUmuOEciOPcVnIu GjbnGLP9y2dhCEJdxTXtSH M3YRdmhRSpZOXeNHFdKHbk UdSSDbIgFgQ9AEUjYsR8Jo N1YXe3VPOWBpWmGzRlGmTq HCP6WZVwDNh7ZMr7BHbRIt N9UNu1VGz9WXSkJJA8HVOh NTx6TJKrTSrcrFZuBILwHV OoBLxiRXlbA56vMkJiBBVX HcRNuP8pMSMLaQrlbXPBhT UanvMWm0PeNxgcMTFhAkAq MCBSZWNlaXZlZCBmcmVzaC BsYWJlbGVkIHdpdGggdGhl GSHsmXirldYtQ1Q8mtOiSW 8fPZVdOLBmF3DgNSQyC97e CQRzpC7xKWQaJU1vVGEkGU QxytQfDGf7uepwQHErQ7e8 IHVwcGVyIGxvYmUiIGlzIG ByWA93OGsjSJ32IFniBH9u IGNtIHdoaXRlIGZpYnJvdX ApsGphb0PgFRFcLCyxNU77 GAL4Gp2asXBfQXCujtO8h9 CqJJurAB5tLzdoKMZmA7Wd D1JredHvvGCtLTJgovNuu1 uyERG0KHZyiAUkeAWxBnGe CkdcERK5t5chIFJxwAGzDU X8LZggqPLjBRHgLFOkNYyw XvMUNsZdIsX0QWEjSgV6Vx T4MEq1MLIREcDwClEoCuMl JPR8RlJjXFs4QLa0MWjRIh Y4SBh8AJu3DGQxSNQ8AUUj PMg6ZKHlALvwkJPlOBOiYN CnCNbbOCaeE05rXjSxLCHG EnCRtF3hLKHSkYjwuFLQbZ QugaHFb3FgPqzlOMPiDgHe MCBSZWNlaXZlZCBmcmVzaC BsYWJlbGVkIHdpdGggdGhl YFTxjPmfmjGbV0W2mrYbDV 4qERQzIJMkQ4HcHRQaS38e CTEucD5sADWxDV3nBATaFD RpYWwgbHVuZywgcmlnaHQg iXKrARJtoD7jSOEyjWHuWW AwLjUgeCAwLjUgeCAwLjIg B43fr0lrhVSvMmaisg83mj Q3dSCzwNHzLqLbZ18seaNf m1VpvUt1eYQmGZixJZNlyE 5gtM5yWuArs6bdgWsog8Jk dGVuZFxwYXJccGFyZFxzbC 2wGrZab9tgqEx8ZOtbujG2 MRDmty98DQsxEYNrU5BnS1 YsJCwuYPR6METsSsYmBDVd KS3VMgViZVzzHUTtOtylOC o2SEj1GO8CSvBvTTVfRbTf ZIgaEVVxAYx0TZgtEO2DFF X3LWx3RCB5ZYA6THt8GYWq XHQgMiBcXGZsIFxcZiBBcm xuyBWmBA4rhWzljtVwFJ2c JEy3nkouFFYyT9p4HJJrwJ VyIExvYmUuXHBhclxmczIw BPNyH8FhinLgPNZfWSGaTQ lwYiTbBSXfd9z4kVA8yEKm jPN1cFTttOqhMeDqBC0djM CjAV5kKYstVPawmfNfe1Uh VB04nWLxaiBmxtSdZfj4hw izYHGnI6e1URWpzFYfNEgb NeRpUqzkUFfahNUnF2iqBe VpexEsRWQmVoE1SWOmNSJ0 FNObAgVmdYCrH6rsGZpqfM Ryq3LtDlJ7eFc1ZBQkmCKr i2EoPIEmk5G3CKQrtyLzhZ VgcXHgc8XgzLt8cEAzDViq ASAyxH8ehO3bRnBql0eggD upi8QiiLAeEQxjGVVndMIr OGxlfJ9kHvWqk2unuGv6QG udojC9MRKckm41HRjwZUTt M8PzA4AgDSedPAF8GFMdRz SkFNMjBZ4LRsLyHXhxKFFt SoohMOq7QGl0FI2FCxGkNF RvMlQwFDO3WoOiTIt9HCqt FC3IBUD4GEx2QSVgRDB2GY y0JQLtSIYuYlTgAOUqKKcp YtLEudndcUKhEF7dnAeeiw MqCFNtGVp8bLDyFJ1aEGFr RXAkfiogfjLtDPEaE4Ecum VkIGZyZXNoIGxhYmVsZWQg n8v6bDZ3tUTsqTJ2cUXyfT zaMpVlCG2hjHCdVA6eAWck CGlmkhJbp8MlSA04cGKcaq BhbmQgIjRSICMxIiBpcyBh IDAuNyBjbSBhbnRocmFjb3 IeKxCraT6jdIMxb7ViBUsw dVxzDLHwaRMdnFXppV25xl Gds7ZnYBD2OTAlIZSoYWAo sG8pXWB6kLGyfVUtqWrafS TwubUovZSaB9IyIZQ7jdMe EDIkALhlVI1sCGCxZRAlGs EwMRheyPYcX2F8gT9rKvIy VGhlIHNwZWNpbWVuIGlzIG YogEqxRWd0ATM6Re0pwBTh DBRrrmUAXO74ILZajMUbFB F3DW8oSSNzturhPMPrWLFq MOM7UTwlfQ82eWPvXXSiZR TakAAurVddGoygmPstw0Ul dCBcXGlkIDUxMDAyIFxcZG IrV9GPPMNtOQTmVlVzTFCr GBu0XZxaT1LFIGZsNYNbCF W1LJk3TnX7WMe0UBDICj6p Kft6Kxt8MiU2XVV3MHnvVP xcdCAyIFxcZmwgXFxmIEFy nZAqHBqelcJ9YJEmDcQiPE 9gAClsbKagFt5gUW0lsXGg BKGoLuQmFsFcZUt6VAQwRf Gpe4dxeLPcIPjhLTI8wNUi VUDuFZMrEMEmYD30SHsmOZ MgbmFtZSwgbWVkaWNhbCBy ZWNvcmQgbnVtYmVyIGFuZC FqWTMcDxEdFYuvIRPmFD03 IGNtIGFudGhyYWNvdGljIG e7hMNeIK3oVSCyi4j6lPDx YGLyYBmzJHNzk8BfrOCjXz SazXSlJ1joKGYaNCrka6Gk XSNdz1B0YWE8rBY3XEtaLY Vft4MfjYAcVVOuWJHzpiUy buFeqUJjuJSbaPG6OPMuyF 9gWYNxFFDlupmbTHNaJ8cv nPBlOCEWlfG2lvulGXnLPZ BQQSAoQVNDUCljbXtcZXBp B4PtK6FldiV9y2vxaQnrv5 KibFLfFH7eaDIrsN== INTRAOPERATIVE l6hflWDxGOMzxUG2EkWrXI CONSULTATION (test code Pdj3hmz8NzxTZkoCIeCRai = [id number]) aJNngqAodz18uOV1qT33YY 8cDENrCoW4YCXaqpG5Utz8 OOPfJDFyhEKvV220g2aef2 yuvrFndHI8mFkxBNQldgfy CmC0DBhqMMYmpytvEUn0BA kfGTQwfWL0WDToySVdB7Pu TIOgLS3cmre7TUW7JIqxPS NfRaY2LNMrsRGmFBOssVii JTllv164ANE4GwZpABAnxs G2GNbuNQVmW8BaN4AbIDmj KIB7VMNvMMIcDKXvTKPhBK WhVZbhrfG5l6ebXSMrpODd QGI8IRtvqTSmKAZhMABfLJ otMbAWHmGwYzG9IZEyAbR8 NxL5DCd9BWCVPyZtHjBsWb QmWZZ8RWbiQOm8JFs8XCdB FrG5RCTeFGMcZZkkJPK1XT AkONa3KWUkARupgHUkNZUz LEWgXJnzCTxuR81ijZwgnY 5cZnMyMCBBLiBEaWFwaHJh Z48yRESctfsefnYdHBFSVF BIUkFHTSwgQklPUFNZOlxw YXIgLUNBTENJRklFRCBBTk BaBVyHUXuUMDuTAZYIP5WS TEVccGFyXHBhciBSZXBvcn XjBIOadGVZea4jN096WRQl KXTpZvYYbQHdDXmdv64lQu 77MdImEwRxEGO1ZCP7GKEc j5tzjEqah6UguMKuXGsiMR JhuYEdGEnbkI0vUsYok1cr tJc1FBwsxmZ5CHZhuz77WU ncRSOsW9GmA1TbRSoiKBJ1 VPEyCtVyTMXpRB4ELeOxKB tpWLWzNetiFFn4EYv9SA0L KrZjFWVaDmSdALF0UJFwFF p5THceTH5GPRZ6IUA7SEJo ZHS0PDx1UOQqJACoVaWuTB RwDTdqJrYEyjbgoEQbXT6l zLyzeyVdHIQtYRs7iNSnGG 5vZGUuXHBhclxmczIwIExZ AESOPQ1RLOXfHBBVPJUUK1 2eWuxeDHpLXYZVN50fXEID HJPUYXLFXstwhUVuEB3DDE eLZEwUCBOSZ4JsGELJJVlX JS8IVBjvKQFlnVYrCUYsyD 7obWXlMHO7RUFjWzHSk8xt sX5nXQLoPXMyeKogdHGwos AzLzcvMjAyMywgYXQgMTA0 Fk67UHWpdRKeYBN7BO2kZS ZqnmqqUOIcBWRnGYG7JDuy oR84aRHdTVLoJKGfbGUukQ zqMysqvCjsk4KnhJQvRKga AVYiBSQzHHayITHgA5UVCK AjGJPxDsVbYOFmJRy8TUqo J2ESMHNdIZFsUTUpVWZ5Vr Q0RHc2GZJBFd4tFzqbJYab DtO3EGJ0UIbjMJqmhDMiOH xcZmwgXFxmIEFyaWFsIFxc edP0JRXzGqCqAh4yBXPdEs rrEkieeDLoYKZkWMCoJH3l NP7kgDHoHIBxEbXbJTZHZx lsKhkNQNGaMBZZTSPaCY9T TTMQCg4VI4fRWIwcNRHNY9 cJWfidHHCwNKORJ5sRBDDR EOGISmBKNQkDS45KWnSFLQ FuihbiMICgIgOxr8F0HBPd LfmbADMoICExdWI5uhPHty 0mNgpyuLH1PD4yIFKbXt3p TWRbNPZnzKFoGsN7AxshER DzX9IdT6JcuhAueJHwGSSx pxXmi5caLVW8UBCakQSngU LwTpIdDubvCHP8o1ipMMSf gHJxFZG7GZmhpLOuTUHvGT MvRPchXuOYZtXeApE5PUKl ApI7QaG7HRi1NKMTVsPtJd OxDtKnUHOfUXbaHXe8XCq3 YZdMEfB9SDWcQFAdNESuPK V8QCIyTKy8UZPjGYrwrPIo OCPcDTLaNOleZNleC55kUj YwCRWHEqEFsU4pJACNcWaw pSMAsWPxsuIZk2AgRdzaNR JcZnMyMCBSSUdIVCBVUFBF ByLTS1PQUFJDF15WXJyGWA ROHMVFNT3oKYEZVjTGRZOM FAtnMNnLSIFYK811LDZomu WsFRQPF0SoHRMRJ9DMZZRI FpWAPB5SUORMNPQaF7RMA4 CQZLQvleWjYa7cUIMCY0Ve SURFTlRJRklFRCBJTiBQQV DYYmFTKI6JHMWvvhbuVNLz DsGxq7M9MOLxTmmiEBZfQW OfcRB5kxWLcm8yIirtkMD3 SH2dAXHdYf3gLZXrQIRgaI FbCxB1RnjhQEFuB1WaL9Fw kkQ2y1qxzGirm9IinCImDU 1ccGFyfQ== MICROSCOPIC DESCRIPTION a2kloTGvKCJgvZI6DoKeVH (test code = 3371) Wgp3cqa4JcfYHwiNAiCCvs kLQsuqWkie57kWA4mZ65WG 6sEHDcWjU4KTQrpzK9Sig8 YYTwVCAfgJPiG781j4axy2 qjphToaIG7oOelHTVgwwgo OqB3GPumCPZmmrisEUt0FM afXVGuzIF7QNDtqXGxB8Bu KKJrXT1cubf9TLJ7ETbbBX DdZwD1XMHubRBbQAObyMab MYwuq082TCL3LrTvIRRwxh PqgBxnqI9vFkHvSFPNPDSm g3HaNAMhpFLxjU== [id number] 16:43:29 Test Item Value Reference Range Interpretation Comments Case Report (test code Surgical Pathology = 104) Report Case: [id number] Authorizing Provider: Izaebla Galvan Jr., Collected: 08/15/2022 09:30 AM Ordering Location: [facility] Received: 08/15/2022 09:37 AM PERIOPERATIVE SERVICES [...] lymph node #2 ADDENDUM (test code = [id number] 3381) Xll7qwu2BjsHQzuXMwDCuv uAGfhePajd03xUN0sT28FK 7mRUMhIdK5ZUUpckA2Bpi2 ZXRsZBQaoVWyI760n2zhw9 meddWanYM8dVkpNLTuukjs IqR8HBfnHJXzwuvnUBm7TS ycLJJeeRH1FMCffIHdH4Fe XQQaTX6jdzb9NXP7UKxmAZ IgNxI7OLGwxWWsWLUmqGgr VOxup413SLV2PgQaQOZynu HnzRzqmP1pSdLpNZQHgDwb IGFkZGVuZHVtIGlzIGJlaW 5iMFwsx6XqLIO5iqHtHAGq qkSsudLaaGl9feEaBdBTAK svFCXryK77cl8geSPsdkFl ZNNsv0FyTBEiDMVjDiXlQ8 Osb75jZ1TeBJFci5FfyH4a aWVzLlxwYXJccGFyIFJFU1 VMVDogUERMLTEgKDIyQzMg P5xumxIyTgMnfBMyKJCmgx MHMDezYKTpYwUVYgHqsD7u WDv3OV3HQQIWEBSDWFQIIJ UzGGZbpeWSQBUcE1PHMrY6 IDBccGFyXHBhciBQbGVhc2 Gki9YqHCX3iXEwqTUgPUMc RW7sWSAcbzEbz0P0VOCssc HuiNO1oFTvDRSflKIgkNHb cGFyXHBhcmRccGFyfQ== DIAGNOSIS (test code = j7qzpSUnQSTew1ppDMPjwA 3220) FuZzEwMzNcZnRuYmpcdWMx IHtccnRmMVxlcGljOTYwMl pfilCsSKHboJNjI9Ixdkha IUfzHZ2jHG5okRnznKFotG ZsFWSsNlHjn0wuo834pSMw w5qkONSJqduihIg0oGjyY1 5bl6B3UfcbG3waEGNhQPrp srKfvxU0HSEppYFuARc3QE BhcGVydzEyMjQwXHBhcGVy uXI3JCDeDK2siyikSAaeSG okXOVxrhG3DBAftJEnT6Mg JSFgBG0jsuptYXU7EHgnYM VvUUT0MwHuIBMof1Umter2 MjBccGFyZFxwbGFpblxmcz MeJPHiVMVXKRAASKNLB09u YWGGY0MAOJZTR1XxTpNDVy JIXUJHR7ZTK321UDJmwbRk GRGuYfOQNLKNLhOqZm7UAU 2HUYsTHcHLE5uqeUKeMBYy JOFWW9TPGbdSBuGAYaNpO5 yNQ85CQnBKLgSQXL5JVNDV J82ibGInEYEtwzGLCgAfGW nMQQrsZn5JZCciL1OGEUwE GnIfQSKMDAHMHIUDI5TNV0 46XHBhciAgLSAgTUVUQVNU UZHYYuNKMKHAQN4UQpMFXX LGUF9XVHVwWJ8TI7gOEE8Q LWKlI4FgHrQQPG2AQXTES4 CCNpOuBM5dCVgiYGFkoVXw CQWcBMKTAJ4LSLARK3NUSH SEUQWAEB4PCKdlMGDEE7NI XNlDUsCYQ2QyBcSCCcHRCU QYW0LIE536NHPvjdZpYTYs T67XSNNTYlyJJsOGOU5ZQM HVD1SIWZvuOkEkIZSbwpae YXJkXHBhciBELiAgTFlNUE bwHr2ZEKmnO4EZGUqVPfR7 EJCcIKPLYPBZE4AAZ902DB GajhEiZEYmT68TGMGDZaqX RaSRDT0DMEZVL6MCKOgxFo EpXHBhclxwYXJkXHBhciBF OkAaGTjGAPcgDk4WYZjoD1 YEOBjGYdB6KBUmZYLDMLHD T3WDD015MIQtmmLtYBBjI2 4JJRACPvhYAlFFYB0SGXZI Z4MAAMqeXdXdBGTscabeXG JkXHBhciBGLiAgTFlNUEgg Fu6YRLozL5MOORqFCgCiTN YLMGYaJHZQAOSUP6UTL816 JEOmwuFmYMUwQ74XPLAEBm zGGqBBFK8MSJARP2JFTHca LzEpXHBhclxwYXJkXHBhci GBSzOjKQySYZhqTv2OYLbd U5SRYInYHsMbRGYLPLVrVH SXLGVZP6YXI434AEEzamVc OSHiT13JQCEGVorIWxFJSY 5OVJEHV7NXWYaxXmVxEMBk clxwYXJkXHBhciBILiAgTF yCXBueOx8LVWwkB6UHGAgE TiAxMSBSICMzLCBSRVNFQ1 KCP788HWTdzoFkXQQsH73M ZDCQPqxMEwHPSE0YFVWGQ0 RFICgwLzEpXHBhclxwYXJk XHBhciBJLiAgTFlNUEggTk 4MNYbaF5ODPGdTNxCaHVGF FSV8XVQQMBCLN0XUG696XI QccpJlIWAxH37OYRXAPgsQ BtZJQR3ZPBRVT7UTWVmpRp EpXHBhclxwYXJkXHBhciBK LiAgTFVORywgUklHSFQgVV BSUIIrBB1ZCIolFpLOUaJM KOOVSD9DDmdTTyAAIR5MOr GKCVcnWlBOJtLTTMWLO4HL T683EMGskeUkPUJeY0YPFC 3TMYTpM5KOQZKVFUQAWJ5L UVWeORTMVjAZQE0EVnvLHc AsFuZEMXGISiG8FHGKNVDJ TUVOUyBNLCBOLCBPKVxwYX HzpCFcWEoeTDLEUK6ACAHP LJqYPQFUNGJYZeUAO8UITO MQKr2UO3sQVXlbUQKST5wX IENBUlRJTEFHRSwgRlJPWk BOQZHXD3OMI616BPMhpwEw SWNlZHQXL6HxGGWHO3CGXL DRZfYDKL8XSQWTZCHtF1SD J5EQXVQfduMuJNLfAbNMOt AWCLMQPX1GYrkLZiESKe7N AHQyPE9UB4TMTIRGKECBCq GKSUoZG35ZWaZKFKXjthfw KLQnFM8hMXdKAzvsGFFDB0 hUIFVQUEVSIExPQkUsIExP YzTTUT5NLEmeuTJcYLOhTG x+LSBcfklOVkFTSVZFIFNR VQMKB0FFTBEPRYkkC8SOA9 vLO61RCQDMB6CQQcMQZCZC XqUMZ12HNEcoJJtQQaCDDF 4DRTHRHVAtlFAeYH1xQPm+ QITRQ2VnTGDCW8OSKXXdDY 0eJFokVt97IYqbAF1pANPE XHBhclx+LTJyquMEAP4GEW cAZnJLOBZtKgvPK1LPOByc UExFVVJBXHBhciAgLSAgQU RIRVJFTlQgUEFSSUVUQUwg SKhRKRZFJVTTTinBMu3HYk VEXHBhclx+LSBcfkxZTVBI N9TAK8CCDRCEJPhTPcTTVA 2BWCiXMEuPCI2OMUUGBDDe nCWiYN4rDTr+QlJPTkNISU FMLCBWQVNDVUxBUiBBTkQg WCNUYZ7NUDpTZMknDlWNVI PQDD0HRC2JMraTLsYwFT0A U7RZNIHZFADYGoEWUJiMH4 1MVoGHXGImfwb6NSQwLLJQ Bb0EY2zYONguQNWWL9nEBt KjZfTeZ94zZKhLCVjqZHIq lRFaYM2kKbKCY9GRRKVhWW CWF0cKZtHlSiBlH61wXVjW FIolMVAqaVBgEX6eMQPSHW 4XQVqWPEhcQFKAU6nNQmOp RiJqT74jTFeYCBfmRDKeP3 NsFWTkIONTMIYTT9PUKUjE BCVJROXPA7LQVLZQNiSIZt 9NQSBJTlZPTFZJTkcgMSBP OyT6WLnFXPBSCH0BTZXSQD wnHmHwOQVxbxrvIoFcAN7g FHQBRC8XQ6mKFUGaTHQHQt KVFARKYoZJXT5YVSOTKIZU WOOUWxdBXx3VX1jIR4oWPx CJUHTGYQaSJ5bCGYVBZMGy yWGwTZUhZNMpMx1IYJmhQI fGKc1BE91NPSXmMC1NCDlP R13GDP6WDQUeudv+LSBcfl QMIWePRP3JCVRfK8IST7tE PxyqiXZ0WfRGqHTlGOrBXl Y2lNxfHDIwJEuoRbSaSZnf CEVotMCaPHbdXSRqTR8vRJ dNCutiLUWEZ6nNAETFHJMZ ROrXYcTjDEFDD83AXXmBYA EHZODXXS5iOFZZGlRGExRv BFdRFAJHDIbdLMQEI9BKGZ lPTjpccGFyICAtICBORUdB AHlRLZOHF6FxOQWULZvFFD 1ZOHouBATccNEqFZ2sFLTH HN2FGORMMNnDIHYMMAFBLk CZE9DSBWIKMf0AX4aZNOen HUASO6lWSC0QWOSXGM6EZG LIEREKAZyiCCTIG5SYLKlP TjpccGFyICAtICBORUdBVE pDOMDTW9UmFSVLLZhDNI6I WVxwYXJccGFyXHBhcmQgTy 1vMFpGQmfeBVXJJ9cUNNRF PGUCDQmFLkEeJXLSY35ENB nLTKBPZQYMCE6rCMOSIcNQ TkUsIEZJTkFMLCBSRVNFQ1 MSY173GONmkcXnLTXgWzOX ILAQXpMoRu2LIN1VDNhHPf RHL9gbrVOcCBFsdxpzGROp MSVaPJDOIP4OHOROL2XPHP SWZRQPDC2PSUPHRHDgXOBZ SLZGU2SIZ175JYCbmzHcPB JRWOAWYABDFbcUKbMCEL0W YBNGM8HASoWrGV99HYisPI DsdWDmXUVoUMeVCPYMJS5G POLnZKACPKNTJ11kQUNjCl TeMCIWV9DXPWvGLoqoyDAr ICAtICBPTkUgQkVOSUdOIE rXKSUARV8BQDIrRVKxTUyz ySWxyGehgqWzPRtnp5SzXE rvWJKbXC7ysVvkVBKkIL7g KRWgU6xpzA5oxyc3JkXvSG OjBgO7KXRdymF6Cgy0WBXz BMdxv5abo1NgJMDbJNy7wS srTwIzDHOej1dwkcAzRqHm TJMbKFMhWAQdvLEwF240j3 mmj9dyupRjoWN2KIFtYVH1 MGvpqjQltqP2ITdilZXbLv M8PQxykzCiKSzjteOvcmBz Xux6NASrM046ENA6dNhqk8 aiGYI5LCNuLOCsKqFrXd1g qTTrP099TVHwPYMPNFGqoM w9QJBkpxFilfKjeZCUx766 M793j9muIRAyceAjrZaRwh mvt3dyD861ORTmlEZkcnDw HiPbKEWxdOPegZJ5NHMyTD 5bzoreXBgbYFsmTIUagyU9 XOUgmQLeN9PuTJChIS7qal owXFW2RRwzGAZsPFW1ZuIw LXOcg9Hiwpv4BxTnem8qfc 21EPI6t0OgkIcgPSF4LCZ4 TwPxFq8ssYMtACMtDY7eEf OomVZvWAIdwt17iXbdNToi DYE9ZANotxCna3Lvq5vhSe FbefBzW7lfJ9VmPVUlPLFg GISqIxDmuzJse7Woz1LylN MymAq3e0jbIDPhWTLxxRus c0zwMYX0OEJaqCZjM8gxoD 5aTZBxTM3qitsby6bdNBhx ZZhjJTYujNJ6mmS8YPEaoN VsA4VtuQ6mPKPvQDalUXDr mtz4XlZhMd9zlFKyvQavXC xzYmtwYWdlXHBnbmNvbnRc cGduZGVjXHBsYWluXHBsYW luXGYwXGZzMjRccWxcbGFu ZzEwMzNcaGljaFxmMVxkYm BdVZJaEYlmD9aqMfNmNxPi Wlw4SLDgoBEyCVSsVfm4NO WryEYuNFHBgQqlzY8rTZVx tKjhrL7saDP2VGYqhkBmuD SEpR3hSQKFwY0tAdD5NUXj Htt2YGP7FnBlgAKteT3= COMMENT (test code = q4nywXCgVEYhdUB9PyXxCH 3359) Hrk1qot5EmwFWheOQoIJpu vAKvijSnia31tLU3pO10AA 8fYTVkXpV7HKLnphP8Pbt5 HDIbVQBwmORuO474z2qws5 zoylXpaGL8aJrtLNQirwcz UaS8QAufEPZfiwqaQHp8MH inNQRkzXE0JPNtuQOtD0Sz AZRsQS0cvsd5TCX8TOezJV VtQoX3NHYkvLQrIWXtdQsm MJdns557DHL7RtEoQBZvhf CkhQchxY6dXwRrBRSYaP1u XLQyHVMfl1M8QQe4GTTabz ITiW8iekyxXIYgEDGmtrWO n0DyLBq3WAgcSCcwOBObqA RnFGX2cZ8bZBtiyWhrDpIo f4HkcSA1lhTTUG1iGU4haV udgbKqe0UzFiusjCNbz1On NVChl8PacibuOYKrd2TtyF Lqs6rmzKXxDFFfKKCsinLw LAAhenKfvcOqKIYjyuY6iG 5ccGFyfQ== SYNOPTIC REPORT (test LUNGLUNG: RESECTION - code = 5765) All [employer] - Protocol posted: 03/01/2022 SPECIMEN Procedure: [...] pN Category: pN1 CPT Code(s) (test code l5ubqUDyZQRlwAY7RvQrMS = 3357) Svp0vrk3UdeSIgjBTsQDsi iBDursMcoe48kTB5vE96SL 0dZIUmHgM7QFDfsqF7Nzf1 XRAyMORoeIYoD395b8qxw6 qpniBteIZ0oTlxNUHysmhy EmM5KEwoOVAkatyvOZw4XV jjCDWvoXL3ELJcoXJxD1Pv XYPzHK7pzuo4UCE8SVqxMT HbPnV8CKWirBGxYLAfrTgr WArpa223VDQ6IrNiCOGhpz StpNoifN8pCnBlFFJ0ZQWu EDd8UOEhmfD4TGZiE8vaEL EkzzN2QVGbOTtiFFUbIBch MDVYMTRccGFyfQ== GROSS DESCRIPTION (test x4egvRDrIFUryFI7RqGwUC code = [id number]) Sdx6kld4PipQRnkGFcYLrp tJGocaYphc69eFL6cJ03BQ 9qMNCkPfB8EPDormP0Eyu6 OLAbEVHdaTClK466m5rvt3 gclwZeaHX5JFNgYQAkI3Ze JI8cCGUteURiO50kqMUmMX L8ZFYwCLIrpHZhKQPlZEC5 KQVpdLIqC7oqRHQcVH9eej onVSlxQSghNFNdbXO2LVPk qSJhN5BbIVCxRWroKSZvww o2DaVdGw9lnQPmdHwiGFob IVCsy2rdXUGieOQyCBY0IT assTGvZWVmNZSpFKy1MVOw JMipfLQmHV6nsWdyJoumnJ tbf3ZtnZBpJUutHKMjTIIk PKvqEDUtV8IWQDLmMBYkId PjROXwTLd5DUkvJ0GFCFQa HLAlLJGmTEj0LtC3SVj5MT PZWp0wBlx8KYgwHXUsBLX7 OTkxIFxcdCAyIFxcZmwgXF wpWJAmuTOtDDljogA2COOq KCbzNLIkOaNoKZ3nJWdoyX hyYWdtLlxwYXJcZnMyMCBU jPMcb1XtU1znSP0dwZUjyv BzKWg7ODEzWwXus8pwMi9j WTCia2qolwIeGRU7kZ0fLO HjPUzyv9CzggvbxVQoNXvi GEG3wVCmENBuAFGxZQZcVK 50XCdiNHMgbmFtZSwgTVJO IGFuZCAiZGlhcGhyYWdtIi BpcyBhIDIgeCAwLjggeCAw RkCmZ22pkGSwHOr5eFCnUY ZybjU4QIanfZDaUSVioTRs n0OaLtJ9nRLajEPhq9OueT c1uSGoOBotDJPlxK9qqQ7c GcDlDKIhp9jemWmzy3KqeP KwGQxsODDlqGDjGCdhnE2y LfKgo6mkrFv4TOcjfoN5YH Nzog58CSggTMInG1YjE7Ej SZqlMQE0LJIaEgDyJWNtRS 6XJoZfZGltNRYhXzbzYSv6 ZLb3DI9SBsUxRLSvVwRhIS Q3QlOhXRa7MNdzMU8HOUA4 JWA5MYqlLWN0EPa9ROXoRL QgMiBcXGZsIFxcZiBBcmlh aZDsTX2kpJssjgPxSEJdYN x1iXQlWK4rDXTdMHXzipef czIwXGNmMSBSZWNlaXZlZC BithJgs3ByBGhqeqWpAFJg bGVkIHdpdGggdGhlIHBhdG pxsqBfX7A1ryAoVJ6iDEYp HOVgB5LzYLIrP38sTALalA 6qPSJuUQ2wIIc3EVGwLCBj JzkzMTAgUiIgYXJlIDIgYW 04lVBhB344tWHngXflhWka np7mCCWkcOZba0DwaY1eDZ UbZBAuqXCybzEeIG26MAIl LiAgVGhlIGxhcmdlciBseW 8wyYDnu8BeARudQPMse3Gc tDNgEZPhWLS8yMSdr6IeL4 njBF6hxCPsDO08aGPkyCcu t7DcwNk0yGHvEujdMFGrbP ZmUUIdC9Khv18nY16mNOdv cGFyIEIxOiAxIGludGFjdC VbbK4gdLZsm5MtODLagvLB Lr1FPpwlCEHfqG9agCWrx4 IdUIRqcHPpW9YoDKeqWGUr Y8TnF6EkloTkoHSeESZcom Day2hjKHS3JGZiiCIitRAa KmEeVlsrCUR1n3czZHWzmX ZmWZS7EFierUUvRFOqGREv OBobMeBWFtWwArL9QURtWg I7YfR1HEs1MCVGZqKfYjZi XkTyOOG7BDEzDLi0HTl5XH eRBoO0ZJkdZHKwGpDgDMB9 OZKnEXb0UMInWBdpeFAyQV GsBEWdUVouJRydP80cFeTu LEaqCtNkZq7tJCdriLdeGi 9gPO1diMVpWZDgTeInXEmi IHNwZWNpbWVuIGlzIHJlY2 VpdmVkIGZyZXNoIGZvciBm yq49IK4xk1WzmKlyenNkjA Jpvn3xeSFrRCfhLdSlTCGh b0x1nEZ6uKIxuSC1kBKrxI xsAcIjGR8zyTZrIH9YKlNj tbCqJeq2AgVykdXdJBKkFR A5BHHuEJI9AGQpJwBamMBu yrRwiqAaa4JwXgCtdV3vuP Lye9DcFtSlQDdhYOFnXUYs pEAiGNtrNCQmm9CwhADmCC FuZCBhIHRvdWNoIHByZXAg sYLruTOeTX7dNSBpTIAaxY ShdU5nheTblgYrmsLeolBu eWUvqMXrpGR4QYPnoP9mVg AkMyVkn9janCzbd9NlcHCw GDgbBYLwcSBlSBxvfU4xXi Byg0pdpAy1HNazeeN6EWIi rk18WHowFAObA6SpX0LlTK roJOK1INCbPxOcLSDmSU1L ZyWkMPbbAFFtYiqcDIn9GO q9SD5ZOxTbAJYmFtSqRXmv VILyZZq4OLtgXV6KRQC2MZ R4FTNdDxN6QWx8TVNdUNVe MiBcXGZsIFxcZiBBcmlhbC WtYQ1piBlzlhNyNXKqUBc4 gZUxHL4lCFLuZHBicsabsu AhQGUpX5XcteNdHHQqFBBn QKgkRaIjEBTmj9x2pEA4kV QofMF9rZNggYgmKiIpAB5i bTJsCR7xMYqdGFnqdrLji4 GrSK16sMStawZfbuQcJcw8 IiBpcyBhIDEuOSBjbSBwcm Q0oV55j2l7VWfwP2zqGHRp AA34vRUzD506qTBxbUyhvN lfhy6vMFV0gRE9TEouGOMj k1QeyWPnPYNcDHTuvyIgrj DopEAwtHHqlOV6XVQezO7e IOZpDOAqu0eehWnja8ZttQ TsWXsxIKZplMPrPKiufR9j VeIhq3pyoIm6CEqgifF8XN Epmz73ZKvzVYEeG3TxC7Zs WOmxPIR6UFSiOdEfQTJzZC 4YLuZuYWmmQIFwBisfJDp5 VTn8OP6HFjLsACScUuBcMZ rkWAVeSEi2LJpjQP0JHHQ7 TQI0WHPqLVX6WWt2XAXaBR QgMiBcXGZsIFxcZiBBcmlh gNLeIE5maUctodQaCIBiDD y5nSYzPK6bDLBxLQAcawtq oeObPEOyZ4HvtpByRMSdOA XhKNxmTeMlLKWcu4f9xQO6 oGGnzGP0pLEukHiaEwVpOO 0aaHSjGB6jRQuoJLyflmHy y5KyLB12pOPdmgEewgOvJf c2NUMnSvLpmzNuPSOvIvC4 YGEnSoI5FKZgUVBrrKHowk YjrjGxr8AoImHyeS6ryKUd d5ZcKGtrjKkkZLWymDVcaF TmpM91ceWlf1SqOAN2QAAx CQXuWRJvbL2aPSF6jLCsdR XhVWUAzKSdzM1ajgRdnaUh RTXeISbkuINgVRH5vE6yNJ ZeAE4yWXApmVqoVYk9CXI1 Im7qhDAcLVVvouFVIE3CHQ 97BVIklNOzXMN1GM4dFBJg llvoPBGkELQgFMN3OEsmzJ 11bHQwXGZzMTZccGFyfXtc RdxrlOtsp6LleDXuPNbgGP VjDUZiSJhvNKSpG4VRNAIq RDHzQmUkGBMiLQf4LHtsX6 ZTICIgIDMzMDAyNDgzIiA5 VZh7GRMKNw9kSts3IhH8HT j1ABO7DSdkCMlisJHeOYtk ZmwgXFxmIEFyaWFsIFxcbm V1EXUaKwZaAf9uWChdrVek Rj2tXH1evOOuWBHwWdZmUm QeDOz9YPTbDmGwf4mqfTPn JFewFZE0hGOzCURoXTIhKX NrJT63UOdiTBQdxsXrQAmy bWVkaWNhbCByZWNvcmQgbn VtYmVyIGFuZCAiMTEgUiAj DMEttAUoZENfHeOhP56qMZ 15wMJyB690qASraNgnxCyz eu7nCEZgqANjkFT8SGNjcX 9tyI51asGsjtOFUM29IKXg uQIzFIQ3PF6kVEKghrnwGW QfMTVqCYW3LNnqqE20wMSr XGZzMTZccGFyfXtcKlxlcG dtv6FngQHmXKzhJZZfPZPw LWyqWCXrU1UIKWQfMHLfEm DtOLDmRTj7ONgiX3UGAVEv EFAuQXJpQJOtKzU5JYr2BC GYBx0rBre0CjI2UzTcBOM0 OTkxIFxcdCAyIFxcZmwgXF llEPLvcOVxQKypflC8PVVg WmKlGo0xIZqiwSosSt9oIO 4llGMcRVWvLdTzRjYuXBk2 ZHPjZwZhd7hihNJiQGfoPO N2lEElBPFbXCAcJKVlHD27 XCdiNHMgbmFtZSwgbWVkaW NhbCByZWNvcmQgbnVtYmVy IGFuZCAiMTEgUiAjMiIgaX QoETKtBvwhV18iZT94cRAv K702kKKolCyvfWounv1eIK A5zNM3QDxlEMJyz8ZpaKNz IGFuZCBlbnRpcmVseSBzdW FvtNK6JVSjgE7xQgLuCbDn x7pbsJzhh0XwqFDsNEswPT LomUSiFVxbwJ1tEsAcr9nc pHu0KZyqzeN4DDOkjp71GU bwDPRxD4CjX5BnJKblJCY1 EVQtApIrXGUvJB7NAhDrBA hkBHYdYjwkGHg2OZn2XM9I UyAiICAzMzAwMzAwNiIgOT c6ORsdKP7GGNF1UZM2JFZf NQL3CNa0UNJxTAGdIeHpWG OmYXptJqBSdtuvrUIeCH5i vXqivdAaDSdjVOr6lSHaHG 5vZGUuXHBhclxmczIwIFJl J6NrviNbPTXeHTJwKDckBz OkPXRjo6n8uBT4sTQxvXI9 yUKptDirToMyWB4zwUErDQ 6sVJijKUpexbCdq0CvZJ08 bWJlciBhbmQgIjExIFIgIz PqDIvtGZFfRN5qBMNdFZFb sNzyIRRngSeaWKv3eVZqMB 5vZGUgdGhhdCBpcyBiaXNl H6WxGRJvskMiVL77uUWiyR yjz5DkrJy2bPOkCWvpVSoe DzjhKXAbJ2PkY5XrbdSyyI BxVQQisdBgc4tqHJE6YCFm eCKjeGKzVlTlYnvdLZL2h7 bqIGZauPPqDBV6JYwpfVHs NTEwMDIgXFxkYiBPVlIgIi V2ZFSxNzS6KzP2NJa9XWWH VlMgIiAgMzMwMDMwMDciID g0LOp7YWmIYrZ9CCumTpv2 NsvvBMW7YFFzZRj4QHLaEZ xmbCBcXGYgQXJpYWwgXFxu D68cVdGqMEXZHxZMmE1bjQ XDx7ByTuhfYFUbRaQhYYKM ZWNlaXZlZCBmcmVzaCBsYW JlbGVkIHdpdGggdGhlIHBh iVoxeiMlX7E4flRkFM4nCE UxJKEiU9OmRRTrC21hSXZs dQ8jSGMcER6aIALjYTFKCE G9VzErxfSrCLEgZUZjaTEg rxHcjiFed6GzVpYccZ7hgR Xby2DjCGBtVWwpKG73XZRf bM26qjBrHFJsWDYnxmShbF ThuSE0RYXqrP3shE93bnRf ggGUYE12THGugBKtCIH3CZ 0sMSGtmlsxJRFyJVXsPXM7 YTpkvS76nVTrGADcIBIqdD NzpZsuTqmhfCsjl6XkqVNg XGlkIDUxMDAyIFxcZGIgT1 ZSICIgODAxMzMyOCIgOTk5 QNeqM2GYZVVoRDTuFMFbLM V5VsQ4NKy4SOJPKu4aVzd0 OtT6RHK3CQG5CVnfVWahgU AyIFxcZmwgXFxmIEFyaWFs WBxqaqU9MRHeJmRlUk2sYK VuZywgUmlnaHQgVXBwZXIg BN3mMV6faJAyALWlKsVdP2 LcQAQnXNTkfWKqeW8zdlCt cyByZWNlaXZlZCBmcmVzaC Jgw4OzUfZoqyHhLWNuB0Ra h10sZOwvM46uv1cxDBUtSB JlbGVkIHdpdGggdGhlIHBh jGywjwZhY6U3vsUdTQ1hYQ LXEg7zQB3fZKQmvO3pVKXt wRgrwKE8kWMlrgCxm6MxTc IbecPbPQYuVkC6CTJliT0s suBsNsE6NWTrHvUbmVOcmX 4zDCJbNaKujUapc1BjJCHb WUelMZ09HDF0So3mxBTnTU KocfK4b2KnJWbhFNYZKVjc AucrDPWcY5VhQ2YoedMggM JaPDMffsNau8qgHBB2USDw mTFrfCKsPsIrLeumDJQ7m1 prQGNjxHIxZAU3YErevNNl NTEwMDIgXFxkYiBPVlIgIi Q1FRYyRwQ6WuV5SKh0RPPR VlMgIiAgMzMwMDQwMDciID l2EBt2KPxODgG5GJvsAgD6 EEZtRKH3OWPyPVo6MEEvUS xmbCBcXGYgQXJpYWwgXFxu H01eUcUpLLicPpXdQq8qUN VuZywgUmlnaHQgVXBwZXIg IB1xFF5gvZSaRLKcRgPbG4 TsVAKrITMqsVPpoU2ggzPc cyByZWNlaXZlZCBmcmVzaC Ufu9WzSfJgihMwMOFyT2Re z75fAGzqE43dm2arETFmTW JlbGVkIHdpdGggdGhlIHBh uWbgryTnI4L5nsMaPA4pTJ VLDu6hOZ9pDADnmI0oQVVl pLamxTR3zEBewzPrh3TvMp JuxjCtGPQzCuD4ONSuCbU0 KFRaIdYusGUkzK8wDDYvWm ScsCktu8WeDSAaTAzmSO15 ZST6Xy4cpPEcNZDrjkR7j0 FaBRvjAHjdOgkhHWGnL0Cm X1NaoeIkaXNzCEOduqIrt4 xaXSX9OCPbbATyiCBjUjYo DmmmLDP1t8ivVKTnzHArQI H6UOovsCKiLUYdYKObABsb EtDRXaMsNgZ0REDjYdT4Wh Y9NDr4RRGLOdSkNhPdOjKb PZYvNfTcCKv4WVn6XBvLSn Q6YObxBCC8BDWwDBO3SYSb XHp3ABUuYXnhjPViLQSnWW UnIMpvFDkaE63rGiHqFAln OaPcOA6gOUApNpicGwfksB OkGUVuYKWdTA0qVQ3emLXi AABmFoMhM7GgZWLvF0Ipdh VkIGZyZXNoIGxhYmVsZWQg h4b5aYS0cYWypOY3pZHrlZ mtQA1pfMAjNU4WQoEhprDi TXy0jjdvKIOJJZUmeAFcUZ T5TUDoCkoeMQC9UVIxDhqn yIJ5XyGeO47imTEgMgRdg8 PqT6EjgYnicIAaamWhP4Lk CJCboUM8vBTlh2Xpz29nOT E3EKTcq87oiZZfWig+XH5B uVArYNQkX0FxtxQnNZqbLX WbNOOnAT0pKEFjflCbdW1n haQnxvPwEIMrCIC5GDAdDF X0MGDbScUxhMSqzM2nVZnw aXRlIGZpYnJvbWVtYnJhbm 44ssH7hDLwxTBjj2d8hOEl GAWmQCivGLOwz4ScqCMjHy NunWVdP2bcECOzEZtlo0Wr UNPej5E0QJ5usBReODPsws BUaGUgcGxldXJhbCBzdXJm YWNlIGhhcyBhIHNtYWxsIG Mki4OlfOUsLbRvHIdvj0Ic XNRqe9V2CMZhzzW4pRCuDX 42GPMmm9Vqn5IsSlXbLSAd ZmF0aFPkCMNtrR5bAZzwcT mwffV6dWHnjKxjHZUoTBWq y3UbqJhtOVBxbUYfvL8sCQ BsZXVyYSBpcyBhbiBhcmVh VX2uXUE4T2cemgovJb4cGE UsYHImFU8jdO4etzqywHcs mRYgVPfvCUFgTGogj90tf6 UdSVHvNWQpJDereJF0fMYb FEEdYZRdKC6xQMMuXfCkf2 nlXVRcMDLrTHnhp4tppzQc ICBUaGUgbHVuZyBpcyBzZX PhZKddbYEdAOB3bZ6yKDBr kM2igdH5XJBkRCMtJTjuSb F8QFZjERK8QDKqZDEhhAEr iAldNIMllW5pSIiyX1YjfR 90fAy6YVD2ocC3NOttg3ky MIQpzy0mBONzI8RdlTuduh Qyrj62yZDlhQKvjcIdUISl iF4vBGNcZURqcAC0fhNnSB K3B5axzkvoOrSbpnS0oFDm LW70HHInl0Shv0ZjEiKiZP 5cfiBUaGUgbWFzcyBpcyAx UhAuSgHzyXZ5nPFoAoQdrd UmeTSeBK8hyhmmdnuqUW40 FQUeYQJjj78uaYbaGIY2gJ 1vbmFyeSBhcnRlcnkgbWFy Q1vmJRTgveRvDNN9xRAsuF hlIHBsZXVyYSBhbmQgdGhl HEF1rZCvkFXfFHMofEUhx9 BpcTpcz8VvSdKnIWtdJV0t s7FmKV0yeaIsqySccOBdXR FrXMLkcl9lR0k6oq4fsVXs MSWqgkTBrjU2jRGwfH7wUW Clt6KuFRIzOFI6MM5fNYRy TOLjjTFnfV9parVdxzQuNZ EiIxT9UTTnPQM3ZDReMWAy bSBmaXJtIGdyYXktcmVkLC ZoTTP7rECcjXpdRD44gISn F753xSMhVFOtFTC0kRM7MD whMHVvNsWklWQzwm5yNHNh ZSBtYXNzLiAgVGhpcyBhcm VhIGFidXRzIHRoZSBwbGV1 ztZlIQKSfEClb2HsBCIxlU IskLypY1Kpt0SdTgdncd3m GZ5ycsQpn8UnZXNsu9S5II TergGePWU2eQ8gLAMwiV8w rbT7HCIcHDLbWQ5sKUetDX 0kAEopXA1uUZPvQWnouGhf K2efZ8Ufu0UafFAoGLkio2 imhEQljRCmCAMvf0U1mRGn ESCQhWh2zWOgBJLngoKjcl Iog4OgUxCcyZ9rdBVmx5Ke cyBhcmUgaWRlbnRpZmllZC ItNB6dpL5qOCOfDe1xKcpm O01uJC3aBaWhjgKlRR18WK LwprUva2SjjWsrmsZrUYJv VJA0Kt9liXIsWD8iZ9Pbb1 UaoRtodO2zloMjjOEzQUBu YCNlk5FvJcVuCYZlNR1fmI Nyv1QqcWyrQG4ie3Jpr7Lu IGdpdmVuIGZvciByZXNlYX McjB3sDUwsd1ZvDKDee8Tu B5BpoFmbXWJoVCN9ANcayr 1jiBJpXPNatyYEqyseK47x ZTpccGFyIEJsdWUgOiBwbG R5pxNnbLMiST5oUT7eNUR2 XGOsefFhZ0v7pIQjZX6otq lpndgwIBOklSHlNKDlU3Gc m64yH84aOMhjkejrOCGgCP PeMHW5MV6ul2DrxN4ryJjo dXJhXHBhciBMNDogQnJvbm SfyGHeaDEpY4hiOWRluhPs YWNlXHBhciBMNTogVmFzY3 DuKTFqyQBnA8cehhuuYT8w ZoWaWDizWOTvYBJ6SGPsmG qkaWsoao0pIFtlBcelDOB2 UFCylCUvPKy1RnDnGXm6oX OlVW3zTFBaNRKcy9UzdQFv XHBhciBMODogMiBpbnRhY3 HttRksyOvpsj1uYRIaeTNy NTXfZQBLOSbxXS99mITwXE 7bIIHbTIJoyh0rCEZkbYGw JUGmPYLbRWIoYA6hDNRfFl FmrQRcIwBvqp07byO7gKMm dWVccGFyIEwxMDogUGxldX YuzMBvtXFdi7MrfdRcgw6g OEZiyUBpUE8zx0McXBnmUp EsxW2rACNumBIcuWEhRwAh oBEfaG1tosyvADGbSDDjYJ 9XPRO7JP2yc0KolJ5lTHXe aS6iRMD8pBIpvZOtdKFiVC drTl1CVGU6AC0ql9EexN5e W4pxv8DchOKkCMWwfhYuhD 7ovHRgOGJkuO2xLNWowzHe rlXiJ2JePZCvc2SimMlzlc hkGOIwZWO4GqDtXRt4vGTm XX8nVFJdAUCxo9SfmSDaVG JutjCXFREgZXB5NoSDLWWf RRTfNFKajP13p2k4NTKenV VaIhBvEAQykmRnkB6pDIUg hrARTAk2FT1db3IbqN6yUu JvbmNodXNccGFyIEwyMDpN ZQMuFNbbwCrawxOfeo3qaQ DlOpufS7hjyCGxBLmnXLsx HM5hstEijWFoCXBqGPFmkl OsqU1iGMhqPCAfCYNoJMjh SeftClmmgAEpkpR4WNBtCG NdaF2qtT4kRHKcg0ZjCGZz AHJ8RW8gSICsASMyaTZkOI PtMBUmVLEuTXcmNBMuH6Wx P2DhxaJtvSVtYNGhcjHfz4 exXYN7ZGWdpUQduMPbCnMe WjxoNAE1e2dtAIJuuIEsUK Y0IWzspTSyANIyBCGbMUhr YjWYWjJqWtK5KWDfUvC4Ws C6ISp6PGOGFxRjYlPiEqKy JKO1VBIhEEg7QTn4JBsTYm D2ITf2VFw5HGZbMOS4COPt EDd6IHWcSLmrcYQrWZGeBJ XlEQzdPQrcE91xOhRvOPOT EbKLzX2pYWORvPvazSBKrU OkxcGPt4AkXvwvVGHpCwWy MCBSZWNlaXZlZCBmcmVzaC BsYWJlbGVkIHdpdGggdGhl WAMvqGvjrbQlP5Z4orQwGR 5iXUCqXRIlW8QyKFZtT34a UZLviQ2kGBHdRA2gBOVsDV BcluJhDQr5klluJTJlT5e1 IHVwcGVyIGxvYmUiIGlzIG IrGM26PMneQZ77YMxqFL9f IGNtIHdoaXRlIGZpYnJvdX GkkYgsf5SuSYPsZGfiPL32 XJP5Fa9lfRUlRZYxsnL6w5 QzTPvwRV5iOxuzUMIoY6Lz Q0AhsvNwrIXiHLCltkUnd4 foYOI0JEIrmYWsyBWgWlRp XqtlCIF4w6pvRHKsuCDtCT S0CLbrvGEqGVIiVRDzCUoo GhBXOaTeIsJ5NMTxVyA0Pa I4WCt2PSNSFxKbRaLdNmXe TLX4VcQrZAx5YYa1EIbCVu A1OHj1FKp4FWOhFGT0ZWDp FQw8SNDjCRisbFBuWAAhXQ EuKYocLNahP93vDsDaXSEW VoNClS6wCKYBdRhgfPOKtG UocuMLz8EuHgefXVNsZfHp MCBSZWNlaXZlZCBmcmVzaC BsYWJlbGVkIHdpdGggdGhl PBJkcXbndcVfF4B7cdEyQB 2sZMUqUNXqD4XwWDJkS55p UJXihH5sFWWvMC3hCIZyMM RpYWwgbHVuZywgcmlnaHQg tJOmESXovG4zKMCihJGoCA AwLjUgeCAwLjUgeCAwLjIg W03ha5lavKGxAcmfyg14lx D9eZUebEYoMeOyG20idpQx t2WyoQt4hWRcGPdjPMYckH 5mtK2eUpEgq3bzwHoqw5Zj dGVuZFxwYXJccGFyZFxzbC 5wHlIvz6oxjOu0SJisdxP1 OYFbtf93XBqmHIWgA4CmK1 HeQWomKQV5VQSpEzYyBTUq XW0VTxXkQGyrGPAqSdewIX g0NYd6KE2AZgYaHTDpQzNf ARvfKMToABt7AMmqCJ0MZL W3SSb4MXC2BUD3RXg5DCTb XHQgMiBcXGZsIFxcZiBBcm jieQVzTX2jvWsdhnLxKY8k IUt8bmhxUAOhP7v6IMAwkX VyIExvYmUuXHBhclxmczIw QMGcX5ApzqTsCXDoCSOeER jgRpBqWKXma2l5bKZ5cVZy fHF7nPAwzVukNoVwOI3vhL JjSW1jKSqtUNjxmiAnu8Sx RY14rTZjzcGlhfHcKck4vj scLTMvN5j7GPOefQGcUNek SiWtZylvPIbomDDrO9evMj ZheuAeTNHtPxS6ZJJoJDT4 AFEsDdQzbGHkK9yiJVrsiV Him8ZtQtF5pQi8CVCciKKo p1TuVIXiv7D0MCFllxHikB XphFLgh5OzqJz3dSDtAGml SOInbD7syN9zJhFts7sayP jit0HguGKlPIawSEAduZXm ZOmdoG3iFjUob2kmtPa3KD qdegD9FOIoha94SIjpRMDm W8FxZ4FkIQyoRPU6WEGsPl CrLFQnFJ7CYbDuRHwgJMYv IuvoFRy6EJm3PX4VFdMeWE FwClDpJWN2VfHsROl5VBod FO3MQAX2ERc3YOHjKCZ4TZ j9CFSmGQYtYsClZYQdENrg RpOPaajvtMRoAS3ryDewxl OpJSUcTZz1cHTgWL7yFHQj EHHpybrysyGzFUQrC9Xjqj VkIGZyZXNoIGxhYmVsZWQg c6s3gUW9xVWgvKQ3vHWtxM ylLjEdEJ5meQUuJW3lNDjp WLpwbdLht1OlWT99rKGnwi BhbmQgIjRSICMxIiBpcyBh IDAuNyBjbSBhbnRocmFjb3 VjDqHpoQ9jtMKkk4PlWYzx hYveYNKdbWDdpLStpE97ij Qdx1BoFFZ9GHEkTIKlTGNr gQ2aCHU8hBWwdUBhxUryeM QbnrSmkSOiG7IwBSD4rfEz JQXxDRkoCD0hJESbBKRoGh NvVNrwxHXaS1G3vS3xMnHg VGhlIHNwZWNpbWVuIGlzIG SgqUxsACz4HHI3Bn7joDZs CUIykbSRPD71MLPnxFXxKA K3QZ5vXMNcaktbQEPlQNHh CZG1VIcgvS25oOOzKCCsCA VgeYDobFywMhjfxYhju8Dz dCBcXGlkIDUxMDAyIFxcZG YsS0CARWYmLHWoEnYtGIVl PGq5WLhfD8ZVDNXiUDYpYV K2EEs3IxB6UTh9WVEVIu0d Qjj1Ull5GuB0VFA9MFgwUR xcdCAyIFxcZmwgXFxmIEFy sMAgBQhzedY6BTCqDvAzHO 6bUTybcUxrJc4fWF5gnWUg EANkNnYyDaQpBKz0QHVkQg Vaa9uegNWnWEdtVMT5oJGa WINtQDEbHUWhAH96TBinOP MgbmFtZSwgbWVkaWNhbCBy ZWNvcmQgbnVtYmVyIGFuZC XgPPVvDcBkJBapKNWiZT29 IGNtIGFudGhyYWNvdGljIG e3lYYvFK8zUMYek4p8rUQa KNQkUOhaEIYgk0IjhGHsHb ErqELeP8htKWRaWZjmz7Ey ACEwe2D3YUK1vYB5CIdgKP Xwj7FjmDHvDBAyOYKcuyTu dzCsyAAcmANpyYT3SVFhrV 4aGFPqJJNwqvqkGJQeA3oa zBFeCTEIftB1jgaeSOaKGV BQQSAoQVNDUCljbXtcZXBp B0OyI6OevoJ7m3bqxCafn1 CtdCSlXA6oxMRjwK== INTRAOPERATIVE m6iclTKtPPRdzRL8SqAuKW CONSULTATION (test code Itf8tad6VdoCWysJHbZVyg = [id number]) eFSyhaCrcc95rDY2jX62BE 7hFNHsEgM9WXWytmQ0Koa6 FTEcHISaiEOpW758u6tfx5 rgzoQqiTD8eYfaRGShmtpk CkL0AWwyTPZshygeMAy1IZ drCYAxoLR7POGthLUdA8Pt YFIhFK9gzkw2EAL5QJquBQ AgXfS1ZVBumHVhHRXtwErb XAdat003UHA1YtHxWXDbyl C1PYaxQAEnG7BlQ9AqXExv FJC5TDYaPWEoJSEiUFQaAH LfOBucizS3t6okPESfmPWe ZPN2ACpjzADfTVWkEUHgGN fhWjYTIeCdFcF2BECrTzE0 KwP1AWb4OLGCBvDnNqAxZj MoFHX5BUikLRr5LGg5THlF RrL3WUQuWLNxPSdkZPU4OJ CoGEi3NIGkZPcrtNGpCDPh OIHkXIcpQCxpK73zjYlmuH 5cZnMyMCBBLiBEaWFwaHJh L17eTIHbubhytsAwMLENMK BIUkFHTSwgQklPUFNZOlxw YXIgLUNBTENJRklFRCBBTk RvDJcERRvNHWbCLSYKL4IA TEVccGFyXHBhciBSZXBvcn WwRIZccLWDtb1sQ951MALm FGPuUhHLaZIbCMole07kOv 03ByNcTwSxRVW3NJY3KZSg d4lpdVeoo3WeaNFzBWwbLA TupWEiNAfseU3kNiKfn1st kEp7SEarcdN6NXUwyo53HY tcBALfE8VcO0LtKXyyMFM0 HUQuNjBjCSUbPX0FWmUtFP fwOPKoRfbyLXa4AYu9JL7O IxJlISSxLzLpNDC3OANsXW f0TBlzTZ8JRAA7ELQ9NKXs XIT3TMr1MSObCZIxYaXrCY VaSUunTtYVrhsnuVAdSO8v kCmbslZeJWVpYLo9eXNhBZ 5vZGUuXHBhclxmczIwIExZ EWLNQR7ZAKHtCDZECMPCN5 8uHjusFTsMNLVNU66eYLVU FSBLMMVAVgiryOAxXL6YEG sTCAwLDFXEW7ViKKRMNDzM SO9NSZnnKXLsqAWbFJVjkO 1rlJMiNEJ5CEWyLpKHy1mb nC4aWYDpHGForBsyhUIsql AzLzcvMjAyMywgYXQgMTA0 Qu13UWHklXQqJIM7HG1nCA HhvetdTIAqVCNkPLJ1EMku oS43pVFuZYIkNZVefTFdsF gxPiempJljc5ImpWJvVGaa MKFhORPjSJimHPVfY7IUAA YrQWKoZrCrJPYjPKn0XCmt P8FGKMYsJNPsLFUwVLA5Ip L6CQi4MIKRZy3jSozyCSqg RdC4NQQ6VAakFNrogWRmAD xcZmwgXFxmIEFyaWFsIFxc nuP5YXPrRvUsMx3wXRWvLo rmSxmhiQWhDJWnVTHkFW6d ED1ziSVqDSOfScFdMKUMDk boIggRYZCdMKSVOCMgQW9Y AFGNUv3IW9zUHKyhSFHSW6 mEYfhtWFEcCJWBQ7sWIYKC MBJGCkQIDFpKK97HWbTURW ErxpfzVOQcKrGqr8J0SWOc RphgIQFjCZAtcAW0bfARiy 2mLwbqdWB5OC1gRXHsZz8b DNFiJRBjrBUtTrH6DqevKN QvO2FvP1MqlaRrjZRdIQWn opUsj5rkEGZ5IYDoyJDgeF UvEeItBmycAWK4b1irAAKa kSMkTOF4JOgfkCDkZGBnED EuTAwrWlKGQpImPkS4JBNx LiP6TkG5UJe7AEBBFnRxNp MrSdWtPFIaYZuhMSt6FWx9 YVcDLiZ8RGVtIOZlEHNsZK P8RBKaUTv1AWKvFWeozNUo QBBhJBIeVFhvRRprS38cTq TuJTIYCyGOlU5fQRYBxMbl pBVAlAUfjrSBu7UyOenaZX JcZnMyMCBSSUdIVCBVUFBF TmVDI1NJCWIKF86ZOAoPRB ACUDQIEU5fUPRWQwIBINYY NSkaOBgZMEQPS543KWTcbc NlVLCDG8OiHRMWM0HCWNKC FkMFWQ8OPWOMPLLsN1HNE4 OESIGfnfUoNa7fNOIBB9Dl SURFTlRJRklFRCBJTiBQQV HEHfDPWA3UBXBlnlzhHEAn CxHoi9J2TUWbHuhgOGUyUZ RzrSK8mxEKfv9nDwexyEY6 PB9hPGXrAl2zPSRoRHPjuV HqAsC3QvjiLGXzA1OrB3Sn iiZ2f5hwsGkmy0AufBGoQX 1ccGFyfQ== MICROSCOPIC DESCRIPTION e7pqoJAyMJGerOO7AoIyOW (test code = 3371) Cng5ndm5GkxGHbtNNiJThi mENtxzMglr74jQW5sA23BB 4qFGEhUnO3GHBsfjV1Ejf5 TAIgEQOfyUVjS526m4uso3 pxryKsrQF0oAfrLQWuyfmr VjD2NBtfSFMcpmjuSSy7ZV kyMXGymMN8MNDlgPCzK1As ILOoLF4yqct0RQD4OAtuSD SdYuD1FDUwmSWcJLJooVax TEtgr036JHZ5XjUcHIJlxs WjnHuvoR6oEzEcIQPTAIPq n2ZqVMDylIQxyX== [facility] [id number] 16:43:29 Test Item Value Reference Range Interpretation Comments Case Report (test code Surgical Pathology = 104) Report Case: [id number] Authorizing Provider: Izabela Galvan Jr., Collected: 08/15/2022 09:30 AM Ordering Location: [facility] Received: 08/15/2022 09:37 AM PERIOPERATIVE SERVICES [...] lymph node #2 ADDENDUM (test code = [id number] 3381) Uag5tzw9JeyTTiuUCxARqg qEQoaaRjtj10eZW4rQ17PK 6fRZAnCfQ2YJNbscI6Acq3 RVIbKXPvcEOgO302n6sqo5 pewqFzqGS5dSqmYXEljwzf YwZ2FFyaHIEhviepZWc1RP rbNIPvcKC4IFXlvTYoT6Zj ESGnPF2pltw9NIX8PBopDJ NaEaZ2IZKkcQPrGWHmzGuw NBagl270DFT7JiIqVFXdyv RguExalZ6sJzBnMUAGhZhr IGFkZGVuZHVtIGlzIGJlaW 9jISult4IfORO5ejLiDVRt vxVtzcHytZu3oxRdTnHXUI zoCQXdmR76zn8dxRSqxmIo XDQkz3CwWPNnYKXqShAjJ4 Kxa74vD6JiXMOny4WgrS7n aWVzLlxwYXJccGFyIFJFU1 VMVDogUERMLTEgKDIyQzMg R2zifzBcLuFufMIrPXIzei HAIWogLKUeDmLSAsGbyV5a GJj8FV6SYOSNYZHJSFEUYS FdHSJsngUNZCLrT5JKBvB8 IDBccGFyXHBhciBQbGVhc2 Oyw4GfCSI2dYUuwYCiSCOe YU2tWBPatpAgn4S7IHRzrk XfcDB0xBDyTLYhuDPxuHKm cGFyXHBhcmRccGFyfQ== DIAGNOSIS (test code = x7pckELhAGTem7yjSYTteV 3220) FuZzEwMzNcZnRuYmpcdWMx IHtccnRmMVxlcGljOTYwMl jjwlDnUMRecLGvJ7Xdxjup DEfcTU8dYG0fsAmbxSMoqO VsCXMqOlBwl1hhu938kVFn z0vpEFHPlrebyQo1oJbnM4 6mq2Z0VkblC8jbEEZrSQog roTatiC9QUDdnBSgDXy3ZB BhcGVydzEyMjQwXHBhcGVy aIA9DLZiAT1egownMEgtRG ycXUUvegD7RATbtOUdK0Ka KOMaAF4ruhqzVYP2PHtzVE ErOXL7AcXsSAWrb5Gjysg5 MjBccGFyZFxwbGFpblxmcz YuDSTwQLFOAFZNKMVPD00q TPSWD7LSAFUCW0TwXyRBHn UNESAQY2OLQ310YUJrrkHp RCNxFzUABSUGGcHjZl0AXT 6FRIcRZiXGY2epqOSdWXEh QTUHQ2CZVkpRGsPQRmItD1 bPB33YOnYHLoIWPL6UTPWX T43qsNStHNRcamEQPmZxDM kQDJwjHm8ZERxwV2OMOWbP KhZcFDHFPLDPUXBWK1XXS6 46XHBhciAgLSAgTUVUQVNU UZYCYmCAHQAEQC4XMaAQGM OCNL7UFVQzKQ7MQ5pVHS1B HONwT8RiLpBKUX7JPGNTV1 UFZlZdUE5xANvqWPLyaBCb EWPoISGJVX3LEOEAN1XOCM YVISDZWV4LAPpnOIRLI7NQ QZbANbNRL3VkJcFLQyNBYE OWP7GKX401JSGqpgHhFYLv R59RFEFUMrkAZlPZDH8SHB TWS4MKYSwvRqOjQMZthhoe YXJkXHBhciBELiAgTFlNUE tgUg1DLGsiO4ZIEEkRFdH6 YFYoFVUGERMAS0OXZ130NL WrwpLtJUHbB32SDNKOVbyG VeGUYU0XXIAOR1VEIBiwJs EpXHBhclxwYXJkXHBhciBF HjVnAMcHOMacGg3LEKvgG9 FRNQsXAsW0MGEqRZCLLLVN Z8FMZ071RRKxpqEnVPZjZ4 9EQPNKVwpCRcXUCO9NRTWA V6JXWJvpXzWoZYDnmepoYW JkXHBhciBGLiAgTFlNUEgg Us4JBJftD3EUTAsMOtIqNR TPBEAaNHCCTPTSI5KFX795 QUIzplHpDJYgJ89NEOGFTe oFVoIATJ3HUNUWJ6QQADan LzEpXHBhclxwYXJkXHBhci COEeWqTBaQMEacAi7YMGno J8GDGWbHIjEgFNMOSTIxWG CMIQYOA3OPA357RDGyhxHk QUDpV61MEBCXKhwZYkYBYK 7XEPILV9CSSGtbWsUjWHNm clxwYXJkXHBhciBILiAgTF fMLRbuQu2TXYimQ9APZMnU TiAxMSBSICMzLCBSRVNFQ1 NQS007YJUfgrFyQIBiE05C WKQSTeaOYyDMIL4CRRFDO3 RFICgwLzEpXHBhclxwYXJk XHBhciBJLiAgTFlNUEggTk 7BTHroH0EHVReYFwWzCFFP EYY1LMIZDCGGT4OZF018TF InvdOzMNCuS46WGXASOihA VvXHBE6XTRZCH1HYEMzcRw EpXHBhclxwYXJkXHBhciBK LiAgTFVORywgUklHSFQgVV DGAHEhAQ4TPDgzVvSXDlQY XMBBZH9BLigDZxCDIW2UEf LWLJyjCrAUZbDJUQLVY5OH M435WRUonsMsDCJfU1QTXO 5BQUYyD1EEVMIERJDAXG6C HKDiLRLJPdLQEE6WTdgJHm BuBoHHCVKZArN8AILZJWOF TUVOUyBNLCBOLCBPKVxwYX NdyYThOKofQGHBJQ1WDUQZ HHeWGMUNGFCREhILA6QONC NYHa7IS5tNNWoiFNMTQ7lI IENBUlRJTEFHRSwgRlJPWk CLKWUVH7EIT966RORxiuPe YIWgYAAWN4MvSPQNU4XTSF TWHwOFHQ8UCPBULHEqY8BD C3PYAZCjivHaXVPwAfQQBe QOHRLDAP7FBgtCLoATZq6U ZOLrPO1YR1VYBTPDRDTAJu VYLKqPZ99KDyVPXAOcrwiw XEKvJA4iHAgGMzvxHMPXE9 hUIFVQUEVSIExPQkUsIExP HrAIXC4CQEbhgLArQZFpGM x+LSBcfklOVkFTSVZFIFNR VSSSK5SIMXTSCWxzY9SUW9 lEA00IVSDEQ8VEZkDBUYMG WhIMA43GSNikBMiBDmWPUN 7IMGZESCZzqIFkZZ9eXZh+ HGMAZ6EqZLAKD6DNEJMgDD 0sBWelMw72EPgyPB2zRMNZ XHBhclx+DFYwbqYRFJ0PKT iELkQLGLUdBliJK4EYEZjn UExFVVJBXHBhciAgLSAgQU RIRVJFTlQgUEFSSUVUQUwg ZQqOPKMJWJLVBcqSKk4NIa VEXHBhclx+LSBcfkxZTVBI Q7OZY2URFVFYANbMXuMHBZ 0XVFjBYQmGVU8RLCMGWDCd zDQvSP1qWKm+QlJPTkNISU FMLCBWQVNDVUxBUiBBTkQg TKUEBC1RHCiRHMcrUrJVPQ WWID1OOR7USbgOHqWsYY4S U3LKOEVCTQDSPeCLGSqQG3 1EMwFOCCOhyst2PDOlXEBL Hu4TH9pSXFktMBWBB1oLUk PyVeGaC73gCMyHVQshHXBq mEOxMG0kFbTAA4ZKPNEfIZ YOR5zFArDnLfJfM03uZEaB LSjhBYWghIXhOC1mLFFHHV 4FHEaFVRmfSVRDL7yURtUx ZmVoQ42jJQiCJYpwIXRyS6 XpNETtGXPJRQZUO0YKYLpX HUYHHRAGS8FHXDUFGqNJOr 9NQSBJTlZPTFZJTkcgMSBP IsB5QHzXJURPPE3PUIFZZO hqUyVzUBOhxyqyClXqVQ3b YODRNJ1VX1pESBQoVUXVVi MYINSRWfBIPA1LYLKBCQXY WCAAPsqWPk4ZY7rYM0gYGx IZZLTETWmXC3aVNKHIMURn mWZzPXAcXFTnXp4KKGpmFT kOTj2TB99ONWRqGL2OXMzL V22IAY1XYGVzomm+LSBcfl FQJUwCKE1SVXCaR0VIQ9iE ElbgxEW2TjMTiKWvLEuZOo P6jReuTBIsDNdaIiUqMTdt VKHytXZpGTqpLTJyFU4mTT yHSaktRBIRY3qVUCGYNRPR CScJBkXgYMVER14NZIdCDM POLYRTDE3sYRLFOuVPNnNp PTpFGBAHVOqlABEMT5APFX lPTjpccGFyICAtICBORUdB UVyUKLYIY3EyLDZGESaIUO 6BWLlxCWXifPDqSG4sIASL RB5VIIFSRMnVJMFRIARWAn ZAG5PYSYDPSb7DF3uFTUof HGSWB3hIEE3QDQEYET5TFV KXZDSONYtuHCWYC5UEOUwY TjpccGFyICAtICBORUdBVE vDEXEPK7WmMKJJMGnCYL2E WVxwYXJccGFyXHBhcmQgTy 0iSKhJXuiuBODLH6iZOYAH RUVLIDcMFcIrMWGXD33GRX bVHRTSNQOGTQ4pYHCRXaZH TkUsIEZJTkFMLCBSRVNFQ1 CWJ244HNNabiCxSXHuFsNX FZRAJnCxHq1FSC0DCUaUWq FDK7filDLgSNTlxzlfUHKu KHQdFTNHYZ8EEKDUU8KWTM HJYKGJAN7BKRQXTVHkFVGW GNSGO2WDE374CVEniyZjFY IKKVMFAFTWBbiBAjGKKT1K KQDCF5UDLeAoTK54PLuwJN RovXPvDOZzCLmWQICTAT4T CQJmBKTVSPXKP61lWQAjLo UeCKRZQ8BXGOlRZubrsFAn ICAtICBPTkUgQkVOSUdOIE oPTDWQBM8HDIOoLVRcZUvz uXWmgTdhscTuIXqbc4RiXU zkAAZkKK1sxWycPBSkEK6w DCKcY1saoT6kjji4YpCkHL JjCdM2EOBaozX3Rwa0ZMOr RPtis5aay7GdYYCpSWj5pC hqRfVgMMDdn2ktwxXgYgBm IWJtEJHdAGMibXIyR827a7 nna3tihnVtxZJ6PAWuWDR9 RXlzzvUiwdV1LXexkYWnMn T3AWjdweJtSDkfasIcwnVa Xdg5BQOaO000BCV1rOgyq0 faJXU1XHEgNRLvBhYwIn0r yUGzH099ESFnIYHLVOSgyH l8CQAhawYtmdFuhNNEh668 F382f4izWHVtyxExuLcOnr mys7ufI081FHFldUItuePl GxRwTOQeuRTwrIN2GQBuIH 6mkasiKFkbHVxzDLQktyV3 KWIrdPWbX2FfBUFmOV5pxm asTQM9EAmkECOpJRU2FdUf YKTme3Sqlsm6ZcBheb5ijp 94PBP2i0VddGyiQOW8WVB3 HaWsHi5mnJScOMQeFO1eWp HryPJwUISsxx05zLaiPFop WBQ1WVDyjfSfj1Sdd4wcHb YubkGbE2tmV1PsATTuTSQy LGRmHaThacNag0Qzt6GygX PwuOv2t1wxFSUxUAQfuCrn i1qnFPJ9EFIkqXXiP3psgN 0aKYGiTV7qeznli2ojRFqq YHthMQRyrWR3mnT8ADUybF LtW7MsfJ8vABFtERywUNUk ena2OvRzYl1ipOMreIepRY xzYmtwYWdlXHBnbmNvbnRc cGduZGVjXHBsYWluXHBsYW luXGYwXGZzMjRccWxcbGFu ZzEwMzNcaGljaFxmMVxkYm JpVEZaZQgsU3qfIbLiPsIg Zvr4ASUwnZCmCFWyOld6RG TygQLcWLXNvXyubY5vEYOq oHykrV4rbWG2HADstsQmhS LJqP8zVBSQuH9hGhO9BTCf Xjq4XDW7HjSryUVqzV0= COMMENT (test code = [id number] 3359) Lbh3gfq8YzuVVubWNiIUeg pMYpokKwhl08rLK2yU79WR 7zMSIoUcK6AZCnlsI7Eki3 KEFxPQCtzZPxS467v5lmq8 lizjVprYW2sCtxOPYgnpol ToD0UQnfNYTriangSRy3IV naJHLtsYG0XTUqcLAcP3Pe VLJfRH7jkyf3ZAK3EJcsIP ZbDsD6KCXsoTUcWSSqyBcq ZMbrg541TBJ6DvMdFRPriy SvrKwqaC2jNfCqCRBOeJ4j JAJaUUBlj1I1KTa3NWWcsr IJnT6zsxtbJLVhQTDcvqPX g2OrCVh5NGzuPWqaKGYwaG SmLUP9qP9kVGorkNtdScBy f0ZkpTC1bvWPRO5aNS1ohY mhwpIqd4OsJcddtNEyg0Ul RWEim9DxpatxYZVhq4WalM Aip1qomEJeOTNaGPTzcoLt URFxodWmixLrCKQfxzF1rW 5ccGFyfQ== SYNOPTIC REPORT (test LUNGLUNG: RESECTION - code = 5765) All [employer] Edition - Protocol posted: 03/01/2022 SPECIMEN Procedure: [...] pN Category: pN1 CPT Code(s) (test code g3mcwMQiOUIvzUU5NfLtLP = 3357) Ahw3djw7WmcFTwyRJvMJvg wOWfqmGywj31kCC9qJ00FR 9oNLJiJyM8DFVndzB2Csf3 YYZpDSWqgDPkL377l3ajq8 npioRckJO4wWujNLVxnozw FyR3XHysDWJaknmqZPo8VQ kpMRKbmRU5HUKolYPaF7Pu VNZhEN4emje2VRA6RKjgNQ BkNdW2EWThqTJhITAhvIlk AUere175HQP8QzTzZVThte ZoeYncwJ0dPzKaBAY5MYYv VBq3JZEadtA0TFUmV7knTM DcynF6DPMvHKueFPYiXMoo MDVYMTRccGFyfQ== GROSS DESCRIPTION (test g1svrYAtPTVoaBL6VlRpUG code = [id number]) Jtc9xzb0RjcZOrqRMcIWiw rSRljyXhpz72sXC5dK95SZ 2lHAPmUyB9GYLvpeO7Hsu9 DSQiTQJuvALkD272g1nvz5 ohgpQbbJP9YKUrJJSvP2Dr MJ4sLMZepNOkA34lcBYsZK N6YIJjBWAybMKaPZWqIWW0 SXFomQVtS6glULVuRG9apx gbHJssWUbcJLTjkDV9FOLn gXBoD1LuUAKpAAuzSVOacn q6QyAjGo1niDFsqUimJLpl QZQfg7ftJNEivCRlAYQ4BH wteLTmNMHwRSFeREh1YGCu NSdqhIIzFD9omVsjNxhaqK owb2ImhOKuEKegRQKsMYXb QXinAESwO9YWYDVaRORmWj GqMNHxYWv3JJrcG8YEXGUz RFFeLGRjVNw6QgW8UIj6KE EGJc4fYtq4IZfgWGVjMAV8 OTkxIFxcdCAyIFxcZmwgXF enXTUoiOZrDNgbboZ3RDLn YLxzSBSsMhWjJF3xZQakvI hyYWdtLlxwYXJcZnMyMCBU xKGbq6GpD6hgKB1xnDHwdf WwYId5QOGjRyNis2ldJy2r XEOow2ardmXgPFK8gA1wMF ZyDUjgz4CbkcfwyEHmIYru RQK7fELnYXDgQLReWIPwPL 50XCdiNHMgbmFtZSwgTVJO IGFuZCAiZGlhcGhyYWdtIi BpcyBhIDIgeCAwLjggeCAw PyQnG11shLJeMAx4mDVoIS YqkpG5CFmjqYGdZHVtsVSn w4WwMqA3jISpjRLxc6DmzH b8nRTxQDwoNCDfzR4ilU2j DjUcKCRze2gpqDhpq7FsoJ ZlTYnxKWAfxUHbUOrmrJ5q TzDwp5splTu1HAhtvtY0YE Ftaq04SEdnYHJyX3XoU4Ni WXcoGNE9BPFoTuApDGGrVU 8ZNfPfFFaiEDQlBzblBPh8 OFs2WJ6HQzWcVOCbPlApQU E9ClWlTRh9SWzgOB7XJPY6 GEL4ZPssCFR8CDj2JIXwYI QgMiBcXGZsIFxcZiBBcmlh wKRjZQ5jiPpsrqNwOHMnUV b6rRXuLK0rHEDbKAPnlfpp czIwXGNmMSBSZWNlaXZlZC FefbKyv9CwAPeadxKdWTHr bGVkIHdpdGggdGhlIHBhdG bnysJhK2U3rgFvZK5aOBPh LHCkM1OkEVJcX27sJOPqaF 1lLUMtOZ7jAPx6IECwYPJm JzkzMTAgUiIgYXJlIDIgYW 93aLMfE841pCWpxGobiRuw la8sQKGliBSev1DmhU2bRY BlAROrfMQfxiAbRU20LUIj LiAgVGhlIGxhcmdlciBseW 6cuWYku1VvCYzrNPPti3Te uKLkAWOzGXD8mCWqh8CbP0 laUB3pnBNrTZ86zBWqgZpc i4HayGh4xQIvMfdxVUTojZ ObCJPfE7Pwx52gU65pNNjk cGFyIEIxOiAxIGludGFjdC WmjT0wkBDtr9GkYCKqrfDM Cv9CTioxNUCgbW5xsESqr4 UvOLIrhKFxP8NlPSpjIQIj C0QsT5VczwMvcZXgPHPikb Fsi2ygWLY2WAVlxKQqfUJm ZwAdKatkYCI9a9tpWIAxuM QsINN4PNqfrTPsZAKqRNRf MWyoVqEUDpRrRhN8YZRsQb P7PkC7UFb0SIZVMvMtRnDm JfVhGHF7MHHpTHw6NCo9AJ nRTmS0CDqwLXJuHgDiRGY7 VUZvJUu2VOKuBUymbXNuPY ZqRBFoHBruSOoqT59oLbVh FTrjDxLxTa4nOOgllVxzMu 8lDI9ifDMiCKJqFtKfUXhk IHNwZWNpbWVuIGlzIHJlY2 VpdmVkIGZyZXNoIGZvciBm ib87GL9we7MgiEkwctWrgH Ouyo9rkYEqABajZlSpGUUl k6t2bBX1eRXrgXP5aQJbbC geBgUzCQ7piPSiIO8DZkDx adLuFgr0MiXutgKhZRLwQM T7WDMbWTJ4OICdEqJotPMu lmSjayThh4OrLoIgcS6ymR Cvo4WcGiKfLJxgDSVeMXEe hSNhFQceRSOre6EidCGhUN FuZCBhIHRvdWNoIHByZXAg tEQsmHZqUT7iMSKyXXOryA JduN6wxbKftqXjkkAilqUs aZYapFYxyOC9TJFxwI3pZa HlTmKuo3glrGhzu2SkgXHx SLaeKTRufLWsPOxpyW7cZu Tfv7inzPf0LSjaeqI9JOSu ul06UEfvFNNpC6FyH5PxWT ayNGL8IKVbWnWfLUDnIN1Z YnXkMGdeQPDgUfegBIk6NX p5HC5CLyAiLEFxZqNdOJqt POSqGQg1MXexXC9MRKA9NR I1OHAlIrP9SOd2VQWoVZUx MiBcXGZsIFxcZiBBcmlhbC LxGV3woGvxohLsFVCtYDg8 fIQhUN7xTQRoMRTziztltq RyFGDuO6PmbjOrRMMpRZJt KXxuEcHxFLFrn0a3iDS1rY WuwSL3yGUskIxbAjMkLL4b oMXkPJ3nEBpuILnscvQam5 WwUK20rIGpwnGoudDnTrc7 IiBpcyBhIDEuOSBjbSBwcm B8yJ38h0r5BFpsN9tfVZSb NE08sNNiP002yVCycLiqzJ deqq9kJNC9bFA4ZHgqKNYh l8MajZCnPFJjHBSbxzOqji ShcFUeiOKawRG6IJQdnZ5f FQZcIQFjc3pqoAgod4BvnR JoYXrcUVBfbMSzYVkmeL8p NnSdw1azfIc7VCatuuS5OC Pnqe70LAezTDCgB2IgY0Ik TTpsTJZ3KHFoIiRfQWOeIJ 8FMhGfYXpkMKXbXrshWHh4 OIs1PV9JCfDqZDJtTcIyEW nkZLJmHQf6WThrFT5NDUD3 SFI2IHMdTLX5FFa5JGNzJQ QgMiBcXGZsIFxcZiBBcmlh kYYtJG5iqLdpigBpBTGwCV l0tJLkIM3aMJCmEQDyaqog blYbLNRuZ3PkbgFhBVOuTJ OsZKmvOiEtROPpf1c4xAV4 yJApdCD4nBPxtRjpWfRiSU 0wrFJwVY5tIQhsQHxisuDe q4PuIC94vFUwolEavxCuSu g8XIXnLwJftzFaXZBtPeJ2 TNWcMhX0IRYzRKJuuRFaqi QpdsFwx9NlLzOfxO0nhOZw f7WrOIokbScbFJCjkZPofV YulC27ejAkj8PnMXX2GDNc ZMPyQPQjdJ8xXQL0xKYpvI NcFMSVuLGsjR4hitNovtAp JDMoZUhhmKDtLGK5iS2kVU IrJC0yNXZclPuqZSm1JJJ3 We2yfAIwINHxtgQYRW8HWD 74TZWnfIAoXZH8MZ7wXWLn ggvaQQToNCNoFHV5ZWyqhB 11bHQwXGZzMTZccGFyfXtc LgueuUnax2JxvOPxZFtfJS MxFEXjPVksUMGbG0ZZBZDp WTUaFwTkUSEmWZc5QNcoU1 ZTICIgIDMzMDAyNDgzIiA5 DFd2PTHTNi4tHot0WmX4SF y5SIA0ZHwwWJkwnYEoOHqf ZmwgXFxmIEFyaWFsIFxcbm J2VIAsJbUySb6rDNhoeNmv Ar3nGU0pkRSqPRFmHbAyXx TtPRj4PKOcTiXmy9gbaUCx XBkkRAR4oVAvPDMoHZEfVN InOU40KFwnZPFgjgXzXZkz bWVkaWNhbCByZWNvcmQgbn VtYmVyIGFuZCAiMTEgUiAj BTKezHMlDHLyOqZrL72jEX 22rDGbY468nOFteGztcRck ny0wSWMndCMzvCO9AEJgrC 5pnM17meSnqaBVYS41BWZd kNZdNEK5IY6aSHMkdongOI DgEZHgQNU8MWbiiJ76qFJh XGZzMTZccGFyfXtcKlxlcG rvg7JekBFwTJhzCIVcGFRs QExxKDFvA4TEBHLtKNNfOk VdSTSeIRl9TMqtD0UWMJAx RRCzQLQzQDZqMoR2BRx1WE DUDe0bBlt9XhJ8WgPtXNH0 OTkxIFxcdCAyIFxcZmwgXF hlAOIzkAJbKHjujkG8AARj DwHhQq5cORujsXcmLv1jWS 3qmQKjUVIpCuMyPgZdNIs6 PGXyMuXjt7citPBxZAdqIK Y0nZFwQZTmZHPvEHPrOU53 XCdiNHMgbmFtZSwgbWVkaW NhbCByZWNvcmQgbnVtYmVy IGFuZCAiMTEgUiAjMiIgaX KxTMXePwsoV79cMC52dUOz O428uKXdaCybqBprno1oSQ X5iFW1BWidGCWny5XpaEKg IGFuZCBlbnRpcmVseSBzdW SguEK8PMPqcX3sOwBzQkXb i5qaiCvcc9TnvOTcMCcdYD GvuDPfJArdzV0bDzCpi6jw wVe8IQychxO0LZSmuw48EP siIUJiG6XvL1NhQPreXKH6 LLPcKfWlZLClRP5VAiPlKS voWNWlJjygKVb9COr0AV6B UyAiICAzMzAwMzAwNiIgOT f5JCgzWH6LJYH3BQQ4JRSk XIG0AGh7PBArTKIoFyDoEX IbKAvkGdKUlfzexGLvBB1e nRyunbCgNIwdEXe8iCFuFI 5vZGUuXHBhclxmczIwIFJl V5EfvdUcYKSlHKIfICtyIv KzPCVwh9f1tNX1eEPgtTA9 rNKyoNpxNrBsRZ9hoYBlVQ 2zXDsqQSjbmcDfj1FiKD45 bWJlciBhbmQgIjExIFIgIz HbNZhbLIUpMX2hVYEiEXGq hMjeAVCyaEgbSUa5eTXfTP 5vZGUgdGhhdCBpcyBiaXNl C5XvDGUnydLlWE21rXQgeL jpd8JrwXp1vLTgXIupULtf BheiIRCyJ9MmK1AdztTlyL GsLLUtdnFtg3caIVA2YQFc zQFvmJUiApAfRuqsCCC9c4 gcIGLovLZlFQO8IGanfORz NTEwMDIgXFxkYiBPVlIgIi C3VTKmCfP6PhK5FQs7VVIF VlMgIiAgMzMwMDMwMDciID z6NWj6GLtIQmA3PKkxWid9 NmtiWTY7DTNpDMs4FZEpSE xmbCBcXGYgQXJpYWwgXFxu O70wXuSsTRPROoWXjU1lsJ KOx4ZaCydwNBAbBoRhBUYG ZWNlaXZlZCBmcmVzaCBsYW JlbGVkIHdpdGggdGhlIHBh tBnsjtZeO7C8jmKyMV7sYK IiUTHgX2AiPOBkY73lYZOh iV3uTJFbWJ0tBXJoVHVOGI H4KqGhzsEqDHXfEGHizRTj lzGniuTgh3RpJtYtgP6yoM Sys7ZzLSSyQKetYM97AHPl iI99nmTbTFXqHWQwnlSmoC JlcEP5XCJytZ2olS26jfNc veYJMB20RAUneGYbRHI9UM 4hINEpizdcXHVoJXLkSTF5 OJziwF88zJHuQIUeEYVlyO OytUewPurklQbus7KoaUYc XGlkIDUxMDAyIFxcZGIgT1 ZSICIgODAxMzMyOCIgOTk5 DZchT0ZULJAoCYIaTXLlFF J2FuO5EPu1NEULPj4pYxc3 ZiZ4IQA3WEH7YArmTPokmL AyIFxcZmwgXFxmIEFyaWFs PYuondH7SGSyHsScCa9vLA VuZywgUmlnaHQgVXBwZXIg CF3uZF8rqPXlDEWrJtWdG5 ScMGSuHINzkOBopM9xgrUv cyByZWNlaXZlZCBmcmVzaC Aqm3GdYpVwbbLqGMPeS3Np o39rFGvuH33wi0fpPQOxTF JlbGVkIHdpdGggdGhlIHBh kGsdxgEdG8A0jiVdOL6bWC LRYx0eLL9sNFYnmR3fXTGk xBnqnFM9tZHynuTds4HjGa SphpFdSNKwMzF2ALPmdT4h toOiWeB8ETUvNuLolNZvvQ 7vEPWmUmSgfCcbs7TwLLEf DGouJZ25NNX5Wv2mzEXgYE HxayM1i2JrCWzyBDLZNGsl YtmeSZWjJ7MgS6FxesGzmQ YcTHIqpaOip5ezPRM4LKFq rOUsiVMfObWzZfhdLDP9i1 fkHATkkTNyCPZ6EHsjbQBx NTEwMDIgXFxkYiBPVlIgIi S1NARsIxG2VvR7DBd7UBNH VlMgIiAgMzMwMDQwMDciID k0ZYy4DZeAHdK9NJdeTqQ6 CIOwGTZ2FCMrEGz8TLEpPH xmbCBcXGYgQXJpYWwgXFxu G06yBtRlPJfxIfUeYr8tMI VuZywgUmlnaHQgVXBwZXIg WC7xOC8xnWDsVNLmQaUgC3 PlOVWsEKMghTSzkC6jdrDw cyByZWNlaXZlZCBmcmVzaC Mcg1DlXrKrciAiYEDzX0Fq v97yJYgrK86uc2qbDOJnWU JlbGVkIHdpdGggdGhlIHBh mGycrdLoG2V6ybPoUT2wEH ELIu3vHB1qPUSzhK3oHVWo iFkopKT3kMKhdyTwh9FkLw GarwDbRNFlQwI9KUXsStL5 OYRvGzBlxBPzgK1sSGMsRh IrbHkrl4PfMGDrKTwwAO63 HTG0Do9muBSsJCGczeN1c3 JqIQkwHJkaClvdTZIeA7Iw U6ZwrfTdhKBlYUYbqdDig7 xwKPW7ZJCkjEBriDPvHtIn YreuMUU5s8weYOHzpKQiLQ U7CTytzYIfHBPpFKBrWGwg YnQSWzWhNlG2WDBgDuM5Hk Y8VWd8ULNRSlRzRoLyQjNb YJQlGrMmPWh0ZLl4QKeITw H1EZeyEBE6ACOnUNQ4TCJt ROo3JITpXHcooZJaNLWyRW LiZOvpUKwnP81cBzEiRUgx BpHzFR6nDUYfRdghAteejN ZiFIXlVGWeEO3wBL7ylXPz MIFxBkYgF9FmQLJvX2Mwlm VkIGZyZXNoIGxhYmVsZWQg r9c3dSN0kFOcnOA3wRNnaP umXG4rzIXuPK5YDwBtovEc RBj4evwtJVQBIQTroAVnSM I5BGDxLvfgZWJ4MMCsQmco sLQ8PjBtF85lhHBlMhQnj9 GrN4YgzHbykTVlgrZzE8Mk FITkeKH1tXLbo0Vkv94rDV M3JBXtb22poFYmLcb+XH5B cZNtONKeZ4NoshWfEHtaZD WnZNRtRL6vVKUnooBbkL4o yrRyyvNaZVMrWBS1JHHnCS L0SNUzTcUvoBWjcL8oXXfk aXRlIGZpYnJvbWVtYnJhbm 43heL9jHZwyNMuu8u8rLXe CXIjXXodMUAdw5RupYJaAx FaeIQmU1jyGTFgECeou8Qh RRKzu2X3ZO9xqWCeKOHmhu BUaGUgcGxldXJhbCBzdXJm YWNlIGhhcyBhIHNtYWxsIG Nda6PwrGQqHyWlTJpyh6Wi EZVcz2B4CNUitwV2tQFpHE 89HYLcz2Eyc4FyBmPqPAMs PpJ9aTXcPKUalJ0kRNuknV aapwJ3hTLemLndCFBrKSDp p2OdaPqyQWIjuWFsxG5cFY BsZXVyYSBpcyBhbiBhcmVh DT8iEYJ6T6olhoikXl3gRO IuNODtEU5naV0fshqosLhu rLOzECxcITPrNFzfm74yb2 QyEEXzMZQqQAeguVB9bZIk RIWcPLZiOK1yFFDjKlBnb7 grVSOnXDPyDDluz9uzppTf ICBUaGUgbHVuZyBpcyBzZX DvAGtxvZEuBXF1tD6yPKHp aY4hzaA2ZXCaIQVrAJzgZp Z3NIMcMSZ7UKSgVXIqqLQt hVhiPMPhzO7xKIkeE9JawK 93iGa3UCD0owO1YOioz3kb UHQesi5pLDGeW1ZgtAnvtj Amtf26mIYlxJUvwvAoKQTw iQ2cZSEvWOLtrTA2beXiUS P9L4wvxtrqLuBuswW4sNCn YD92LJFrx8Mqv7OdAfTfKP 5cfiBUaGUgbWFzcyBpcyAx HaBjMbAdkHG2fDLyIpDsps IvaAUfGG5bxqzwqselFQ75 VABgOOJhc66wuUnsMZW4pF 1vbmFyeSBhcnRlcnkgbWFy Y9owWZMoveAhIYT4lNKyjH hlIHBsZXVyYSBhbmQgdGhl VLV1xERgjFObVVMuoGSqe1 PdwRfxu0ZwTbUrMJarUO5a m1FzWB2rbcQlovUcsPLyYT FaZFZula4tI3w0yx9veDCy YFOfifKKztT3iIEhpL3aCT Nkq3QyVXXiFTD9ED9hBBSz ZGProDKhoC6nbrDesgQePN WxHhN5QMZxQAC6HPAtOFHp bSBmaXJtIGdyYXktcmVkLC YkZQZ9bWWjgBkpLF20yFFh P730qZLlVJArRYQ9rUL1PR zhLWSgDyEuhPOpqy3mIAYg ZSBtYXNzLiAgVGhpcyBhcm VhIGFidXRzIHRoZSBwbGV1 zzHiCBDIdMYhe4SbNANgnZ UiuBumF9Jrn6AaEpucau9d II6gesNap6XyNFMhu0K9ND SsgrNaYKR2oD2yKIMvqL6s wsD9UCVnCIJzMM3qMIchSJ 6yEQioTU6wUYIoCKndpWww D0szT1Vrz7TseTMoTDtkz5 yujPQdlMKbPWJbg0S5wHYw XRNRtWw8vIAtKCMgjlYeww Aki6DoNeBatN5wlMTov0Zr cyBhcmUgaWRlbnRpZmllZC AlEP3pxQ2fBVUmLe1iHrzh Q03vUA6uKdYuseBvMC03ZE DpaoOyw3TypZuivwZnAKZr XRU6Pm1buUVeZW5tS8Adc5 FhmVdmkW7jpmUsvSChBELc QCZwo6NoXjXrKPNuLJ5xcE Qoi3MctFpxST9ml9Jgy1Iu IGdpdmVuIGZvciByZXNlYX EdvV3aPYslw0TtHELsv9Jt H9HngJufCYVsOBI1WAciqu 7ngFEkJCOpywYTepuoZ59i ZTpccGFyIEJsdWUgOiBwbG N6cgZwvVXpNO5uFT7bCTQ0 YNXhtlRaT3y3jDPqXE7bzl cnwxjiQJLcuLZeNGPtQ9Kv r47xZ86pMBviwgpeOVAbYU OcJJQ6BZ6ju4AdwH0ucWib dXJhXHBhciBMNDogQnJvbm BdxJZxeVMbK8szJKQmxsMk YWNlXHBhciBMNTogVmFzY3 DgGRKcwKWwA7jjiucrWH2o LxUdVVjzHVVrFCH6SHNlzG bsxVqmuc5jRNwrFyboDHT0 JZZxkOMlOQb7HbDaNCg7nM TtAM1bDHEgIZJlc5GykLKf XHBhciBMODogMiBpbnRhY3 YscHrpiEgevi5pRCTqkRWg VYZqZGUMOCspVN61hHMxMU 3gDMXbOGFvbe7rXNHdmTAi VMStFRDlNUZhSO9nDETfZb EnjALjPnFmuy42pqW9jHNo dWVccGFyIEwxMDogUGxldX BglISwuJWbf0QajcNcqx2x LZMxjPBgXV7de4UxLQrmQn EdrC7oDQKzxRQugDQoYyZd zZUtgZ1xpzxqHVNcCATmAE 9PPTX5FV5bi2JnzF5wKSPu zP2aFYS9eWYlaRDvdBHaQJ ecWa8PEEV2FH3br4EtaP9q P1ntf8JjiZTkULIykrWslN 6yoXDbZZTnmG6rRAHszlSi ajSqI5ZrYTDik9RjuNhjst hrZFEoVXC6LqIkRTh9gXKa WK5aENWbSJYni6LdwEStHD QxpbPODOSkLZJ3BrQESGUy YZRmIKQpnX43x8i2IOQsfO RyYsOpQZGdlkMhgO8zKDCw zgFGMYn9SD2xv9FcfE6oWs JvbmNodXNccGFyIEwyMDpN QOSdSObxwCufwtOicf7ykN YkXpkqA6erlKGaJTvdSQoq QC5froJmaBNpKZZlKUAlhs ZitT2kDUgjJETbLPCeIIcl ZfafOrmwrVZoawG7AXEzQM ZlkR9qaX7nMNUry9WgWZYk KTJ1YG0tKZUqNBUyrEBfLV NnLTEsQLSxOBdxAOZcO4Ts G4DjozHezPFcIYMiviShe7 whUIL2HIXfxBWfvFOqIsEm HmcyFBY2s3orJYCgbXClPR J0NZwuxDXvOJQlSZLrIJjx DzRTYtHqAcJ7BSAlBqP8Ou V1BVh9YUNOImQpGhVbBoBo CHN0VIYyVZv4ONy3ZZfZAh E8GSu9XTq3KLShZLM9ESHh TTd7UJOmUJuevVBgMQVaIG ShFSemAOtbH64nSdRfTEAD ByPHpH6lOZAWqFijpCUGaV BwtqNQj1OkZsugMMBvFvXq MCBSZWNlaXZlZCBmcmVzaC BsYWJlbGVkIHdpdGggdGhl JEPjkDvhybRxO2W1nkZvXG 0yXCYnSVIhF5UyIQEbA40c NDLoeQ7dGMOtVD2rMWYfKV VsvxRsXDd7fvhnEWJbM7r1 IHVwcGVyIGxvYmUiIGlzIG YuFL45GHmcGH57JFvhMS1m IGNtIHdoaXRlIGZpYnJvdX XxdXvnw0XmKSKeSEztKS36 PHS0Jk6hzNGfOXLdnjF5t1 QjIHriZU7yKfdpIJOuK7Jv X3BggoAblZWsEOTgilVny8 zxYXR3FGBvaHTgoYInXfMs CzfzMZN9o2xfQSEwoBUwWW U9KXccaAYlOJHoQZTkUGyy OmVFUiTrQiQ5GNAhXlN2Ro T6TXl6BBGCBiSvBtSmRhGe EDB4QqVoKMq1PKk6TApVZa S2CMn0JPl6HJEvWNQ4DMSq CGg8NNZpLBjzcWAnNRJtKE NvMSxbPUymA71dNuUqZOZB ItZExA7pLMQHsPuakUKNeL PdwhCQo8FpVvnvIJMxFfNz MCBSZWNlaXZlZCBmcmVzaC BsYWJlbGVkIHdpdGggdGhl LQMxdGmjdyGzV7M8cyKdDA 5qORSpKRBjI1TjNTEgU94c AHDftL8dLMLpYX9yIUXwEQ RpYWwgbHVuZywgcmlnaHQg nOTgVIQsaP0gSUPdpZInAI AwLjUgeCAwLjUgeCAwLjIg G55cc9ihlEHrSfpesl98iz A6nDAzyZZeFeYuR56aohIw l8VesYr2fTPlGRftYMXhzC 6djP3zNkDyo6wzoZisz1Fh dGVuZFxwYXJccGFyZFxzbC 0lUpXvi3jpaPx0MVnlozO6 REZhjr64WWvuMHFpJ9PaT5 RaVGrvAQO7SOQfWlNrSYCe ET2GDhQeMNrsHUHsUppwXW f8EFk7MU9GTnNaKKZyNjPh FGrhJMRhWGn8JAnhVR5RGC O6FEi5LGF1PSN1ZLu8FEDx XHQgMiBcXGZsIFxcZiBBcm drkZObFK7wlEpwukRfVQ4n GHf5dafuRKDaZ6s3WDLvmO VyIExvYmUuXHBhclxmczIw MLXnZ2PxebMpZYWaAVPaZB ctJsRpGUEyb7e1eMD9fVOb pZL7gRBuwOzsZzLcAM8fjI DeTD2yZMsbDGtyemIdt1Mz NV58wIEuhuOsurReIbk1nn fwEZMeJ9l8IJUqpQPfTFtq QpFxSvwfKMptkIErE4okVi OpvbFjUTGhCnC8PBKwEUS7 EXAlByHobFEmX4xtPYddkF Zet3CcRyZ6pJg7NBAlbYRk l0ZlFBVxh5H0HUPvkdYvlS GyzWLmj7KukDm2cEQqPYtd VXLpxK5snY1mLkEcn2kbjR eom3ZolFKaPRfxWZBugNGc LNuqvP1kWsFvs9htyJy5WW pklrO5JUPqbu76LRluJBEh E2JcW0AhBGabQNP8WUDpKr KcZCSeOY1OWrMvXFktKTSa GhvzMMc4MWo8EC3DJcNtFF IuUsYoVNU9HkLtYMa7WCkq YX9VATE9BJa9CSIsEAQ0AP z6HUEdZHQiPoAzZTLhEQho HzXHasqyqIFkBB8syTxrte VfIXKqNFw8aZUzKG3iIWPt TANyghgdnlHqQTGmY4Gxyq VkIGZyZXNoIGxhYmVsZWQg q7m0aKR4iVLcfOI3fSMynP kkLoUqRA6bqIXxQY3gJEnj EQenehFme3BdMB45jJLdzq BhbmQgIjRSICMxIiBpcyBh IDAuNyBjbSBhbnRocmFjb3 MkPwCdmE0raRBuo4RtDSbt dTilTZQyqYEjzZSgzC96vy Wyi1XrUIP2SUJrNEQxPULz iG6oGRO2pRBpeWHmxIrarS FmtlNpgFRrU2JeNCA8hvGd EMExYXbfQI9fJSUjDLLlUc DeUWckwXXrM1D7qE0uLzBp VGhlIHNwZWNpbWVuIGlzIG DdjBxeCDc8YHR4Rk7kxRVb FCBkpqAMAM62BQBouBUfBO S3HI6pPYSitdgtYMPrJPDk VYS0QKokfF19bPImZKNlES LmdGRtzDtcEzlqjWrpt9Yc dCBcXGlkIDUxMDAyIFxcZG JfQ7IBVWCqYLOpYiDzLNRv GYe7UZnzO5DGIUSeMYSnMV Q7XSw8TbP9PBh7KWFWEv3y Hkh6Bzy6EhP1TQM1GUjdSR xcdCAyIFxcZmwgXFxmIEFy eDOwBTzjgqE8FFKrUaZzIB 3jPNnicCacVy9eGX4zcPIw HPRqRaTrHqUmUZp7BIUkWv Slp8tadUWrVGwaIRJ8zNKn YJBbIVKnBQJoDR60FBwvJP MgbmFtZSwgbWVkaWNhbCBy ZWNvcmQgbnVtYmVyIGFuZC IzGFByWsRfOYkvFADfGT48 IGNtIGFudGhyYWNvdGljIG f3rWGwVZ6tXBCwb0l7cJGs QGPgVLvxNZUsi0IrkTZbAd IspKQgW6elOULmQHnha3Bo MBOgh1N7HMN6fNA0AYlgKU Fca0VmcMIgHYYcTJYbdkGc kxMsrTDvbTFndJG6WSReqA 0xGPTjGOPlunzwQLWlT2ps tJBsWKGYypE3rcijYTmDDU BQQSAoQVNDUCljbXtcZXBp H9SxN0MhiaZ4l2zxsObpc1 MlpGPmUD4fzGGolC== INTRAOPERATIVE a1adtIBbBLWmkPW1AuNqLQ CONSULTATION (test code Cjj6alw7StqXPdrHXyGXir = [id number]) qBVzlwZohg43xBA7mU53WL 0tBOCnZuV8TMFxhwH3Vpl1 MMWzCODrcSSkC772z8fts9 sciuBseWH0vWduESTwjdum FtZ0RFfpRIDrnwjcSTr1HP ypSRYdyKF8QCCudFPvL9Bl VPCwDX7wdry4DIS7BGbwNM HyBlY6IZSspSThUCVjdYdr YHflo527BJF1TkQtQSRlby Z8RUqkJIYlQ8IwE6ElNUrk KSJ9ABZoWLCqAOOeSSGnCI WsCYqrpfI6e0rwMUGnoQQj SCO7PZmwsTZkBYDlFVWqMX doIfNCZbWzBvY3RGKrCcZ5 AmG1RVh0WAOWWsInRrZdGt VwLHE6SVpyJPh0ZOs2VNxC ZkB5PRKnCYGaATchIAJ0FP ByFPp4WYLnZOcetSOmRYOf ZNCvJRgoSTpjX62zvQuzeD 5cZnMyMCBBLiBEaWFwaHJh P39vCCTnmtsedoPfWQDGKO BIUkFHTSwgQklPUFNZOlxw YXIgLUNBTENJRklFRCBBTk UpKZtKHUgMVGbQAXTDY9GX TEVccGFyXHBhciBSZXBvcn QhFBXutCYVoy4cH284XBPh HWXeXvMBpCTmXFylx12oHi 95XcCwPpSkKNQ2FNU5WNGg p6dpoXwxd2AneBJkUNwbWR ZjyPQlGFbroQ1eUxBay6aq eVz0CVyajaY6QIBbzx24WN laLFSuW1OgE6FhZUkxSUF4 VIWzZmIbCYGfBS7ZRcOyTS myYTFpJdrdTIs3MEy4GD3Q PzWbGKXtChZkRAM3MXQjZS d6QIwwSQ1VMEL8TCR5RYHz ZDC3TYn3MUFdQDRmTkBdMD XnWGwfYtUTovjirOCgEC4i aDazaiDxUUMoZRt4dZDtUP 5vZGUuXHBhclxmczIwIExZ RWPCRE7EXXBuHZMIDWFUS7 2iDvekPXeHHQSQY00rJKBW BQDWLIHIUbzvkJPuIK5RZA mOIBsPSMOWL9OrPGXFHTjP SE7HAIppQQXogTZlFOKgwW 2zqTUlHPO0BJEvNdPQv6ui pP3sUSXrVYSjyZbxmMIwkb AzLzcvMjAyMywgYXQgMTA0 Aq43MLEjyBZtSUH5PV9qSK PjsvzrMMQyYQMqHHV0YIki sT79kIYbQYYcUALmsGSvaQ frYlnahKeyh4MajHKbJCih MPNiRPIoLJesUXExK3MEAW KpWUYrJkRtXDUdHBh6LBgw O3CNSAJhFFFgUPNsBLY5Vq A7BOm0MYWFEt6pFlcbZUrc WlA3YSR7WPehEHxnhLGeTR xcZmwgXFxmIEFyaWFsIFxc ksE6BAMkPoCnBw4iCHTpGo ivNvajvNKhHGTtJGHgRW7x GY1qpQLyRLPnUpXgMUQZHm owXvbCCDDkNUZXAJXyDU5W LPIKWg3AB3aBTPbiPFASQ5 sIElnyBMObOYJGW5eBRVNF JOUZPlMLPFbGN02XCbBMFQ JhnbhlMWUaVgTub9W4RMYn ErmgGVReDZFwmSQ3agZImk 6cFtnclOF4AE2iQGErDt9v VCBoKQQpgTOmLmY3LotzKT UsL1BaX4AatoYvhTUvQVNp suOov5swZVQ8MKEynXCrlK JsYwKnBoeiZVT8n9heVHRw eOKuEZQ4SGsdwVUdCLMjPU CvHNdoKvEBUwEcLtI4GYVd LtJ1VtP2FRd5OVTFVvZwJc RtTdIrHMJtJPjsOHa8UBv4 NFdICxP4UYTeDHBtOPTqDC Z8FTFgENb0ZPSnWDnqxPFo GISxXFPaBXheHYrfE16iYy CtHKQOBbOOtN1lOUIKmGqf lCBAsEQlytKZe8XeMyfnLN JcZnMyMCBSSUdIVCBVUFBF RjUFP6RGFTZKJ08RPApYSE ABISDEBB7rSAJDYdJCYUHQ HBsjVNsWHQUTR919XZAxpy EnGQBYD4XeDKQDT0EJOBDP CpUPJC3QXHYJKSDrB5FGN5 UKPLKcavYiFb6pVFXCH2Mu SURFTlRJRklFRCBJTiBQQV ATUjSXLE3HENGhiurtCCSq DfNvm7W5COBlVtaxAWBeUS GwgZM9sqMZqe8mAiigmJO9 QF0vPIWuRy2eOLDnQRGeuN WdSvS4KkycLTLeJ2OzR2Ks aoK5h6vgoUzpj8VbrLYqGP 1ccGFyfQ== MICROSCOPIC DESCRIPTION v3ntjGVsJENtrAK8PfDnLM (test code = 3371) Zfo4cfx9VpaWFktIAuDDqj pBFivfQogj74vIU5zO61KU 5sSKRoTiB8QFWvhoV4Rva7 LNNlZBJmpKJaH345y9bsj0 jruuQedIZ7gLcbNECuwsoo OvE5QKyhRXRmprljWBy7XV qnXPIobAJ7ZZEhkZLhR5Ds GZZzGF1iwqr3SUY2GCpgTZ QvSlQ6QILkvLNtFSFsdHbg GHihw691LJX7RtVpJDRlxn WndAczcR6lOuTxIVSZPKPn g4CmKLRnjSRvuL== [facility] [id number] 12:51:00Reason for exam:->[facility] 1955 Sex: MFINAL REPORT CLINICAL HISTORY: CT removal TECHNIQUE: 1 view of the chest. COMPARISON: 08/23/2022 IMPRESSION: The right apical chest tube has been removed. There is no pneumothorax. Right asymmetric pleural-parenchymal opacities are similar. The cardiomediastinal silhouette is magnified by technique. Signed: Chika Knight [facility] Verified Date/Time: 08/23/2022 12:51:04 Reading Location: [address] Reading Room RAD, CHEST, 1 VIEW, NON [id number] 10:52:00Reason for exam:->post-opShould this be performed at the bedside?->Yes [facility] 1955 Sex: [...] technique. Signed: Chika Knight [facility] Verified Date/Time: 08/23/2022 10:52:08 Reading Location: [address] Reading Room (CELLAVISION MANUAL DIFF)2022-08-23 07:16:06 [...] CONCENTRATION Increased (CELLAVISION)(BEAKER) (test code = 3438) Radiology Orderly ID - joseph Solitario comments: Slide comments:CBC W/PLT COUNT & AUTO [id number] 07:16:05 Test Item Value Reference Range Interpretation [...] 0-0 CELLS (BEAKER) (test code = 413) [id number] 04:34:50 Test Item Value Reference Range Interpretation Comments MAGNESIUM (BEAKER) (test code = 2.1 mg/dL 1.6-2.6 627) Radiology Orderly ID - ADMINBASIC METABOLIC [id number] 04:34:49 Test Item Value Reference Range Interpretation [...] not appl icable for dialysis patien ts Radiology Orderly ID - ADMINRAD, CHEST, 1 VIEW, NON [id number] 16:20:00Reason for exam:->cht clamped, eval for increased pnuemoShould this be performed at the bedside?->[facility] : 1955 Sex: MFINAL REPORT [...] 08/22/2022 16:20:12 RAD, CHEST, 1 VIEW, NON [id number] 13:06:00Reason for exam:->post-opShould this be performed at the bedside?->Yes [facility] : 1955 Sex: MFINAL REPORT CLINICAL HISTORY: post-op TECHNIQUE: 1 view of the chest. COMPARISON: 08/21/2022 IMPRESSION: One of the 2 right chest tubes has been removed. No definite pneumothorax. Diffusebilateral airspace opacities unchanged. Blunting of the costophrenic angles again seen. Cardiomediastinal silhouette unchanged. Signed: Chika Knight [facility] Verified Date/Time: 08/22/2022 13:06:42 Reading Location: [address] Reading Room BASI METABOLIC [id number] 05:49:27 Test Item Value Reference Range Interpretation [...] not appl icable for dialysis patien ts Radiology Orderly ID - OLGA [id number] 05:49:27 Test Item Value Reference Range Interpretation Comments MAGNESIUM (BEAKER) (test code = 2.2 mg/dL 1.6-2.6 627) Radiology Orderly ID - OLGA WCBC W/PLT COUNT & AUTO [id number] 05:31:22 Test Item Value Reference Range Interpretation [...] = 2801) RAD, CHEST, 1 VIEW, NON [id number] 12:19:00Reason for exam:->post-opShould this be performed at the bedside?->Yes [facility] 1955 Sex: MFINAL REPORT CLINICAL HISTORY: post-op TECHNIQUE: 1 view of the chest. COMPARISON: 08/20/2022 IMPRESSION: 2 right-sided chest tubes are again seen. A right-sided pneumothorax is again suspected with increased pleural fluid. Bilateral airspace opacities are unchanged. The cardiomediastinalsilhouette is magnified by technique. Signed: Knight, Chika [facility] Verified Date/Time: 08/21/2022 12:19:19 Reading Location: [address] Reading Room BASIC METABOLIC [id number] 04:37:06 Test Item Value Reference Range Interpretation [...] not appl icable for dialysis patien ts Radiology Orderly ID - OLGA [id number] 04:37:06 Test Item Value Reference Range Interpretation Comments MAGNESIUM (BEAKER) (test code = 2.2 mg/dL 1.6-2.6 627) Radiology Orderly ID - OLGA WCBC W/PLT COUNT & AUTO [id number] 03:57:32 Test Item Value Reference Range Interpretation [...] = 2801) RAD, CHEST, 1 VIEW, NON [id number] 07:52:00Reason for exam:->post-opShould this be performed at the bedside?->Yes [facility] : 1955 Sex: [...] findings: None. Signed: Sondra Reinoso [facility] Verified Date/Time:08/20/2022 07:52:50 [id number] 05:36:30 Test Item Value Reference Range Interpretation Comments MAGNESIUM (BEAKER) 2.0 mg/dL 1.6-2.6 Specimen slightly (test code = 627) hemolyzed Radiology Orderly ID - DREW GBASIC METABOLIC [id number] 05:36:30 Test Item Value Reference Range Interpretation [...] not appl icable for dialysis patien ts Radiology Orderly ID - DREW GCBC W/PLT COUNT & AUTO [id number] 05:17:37 Test Item Value Reference Range Interpretation [...] (BEAKER) (test code = 2801) Prepare Leuko-Red [id number] 23:54:00 Test Item Value Reference Range Interpretation Comments CROSSMATCH (test code = 2264) COMPATIBLE Unit ABO (test code = A Pos 7748669) UNIT NUMBER (test code = [id number] 934-0) Status (test code = 9133882) [facility] Product (test code RED BLOOD CELLS = 2263) PRODUCT CODE (test code = [id number] 933-2) [facility] [id number] 23:54:00 Test Item Value Reference Range Interpretation Comments CROSSMATCH (test code = 2264) COMPATIBLE Unit ABO (test code = A Pos 0351930) UNIT NUMBER (test code = [id number] 934-0) Status (test code = 8598849) [facility] Blood Bank Product (test code RED BLOOD CELLS = 2263) PRODUCT CODE (test code = [id number] 933-2) [facility] [id number] 23:54:00 Test Item Value Reference Range Interpretation Comments CROSSMATCH (test code = 2264) COMPATIBLE Unit ABO (test code = A Pos 8816760) UNIT NUMBER (test code = [id number] 934-0) Status (test code = 3886088) [facility] Blood Bank Product (test code RED BLOOD CELLS = 2263) PRODUCT CODE (test code = [id number] 933-2) [facility] Leuko-Red [id number] 23:54:00 Test Item Value Reference Range Interpretation Comments CROSSMATCH (test code = 2264) COMPATIBLE Unit ABO (test code = A Pos 9672373) UNIT NUMBER (test code = [id number] 934-0) Status (test code = 5456210) [facility] Blood Bank Product (test code RED BLOOD CELLS = 2263) PRODUCT CODE (test code = [id number] 933-2) [facility], 1 VIEW, NON [id number] 08:36:00Reason for exam:->post-opShould this be performed at the bedside?->Yes [facility] 1955 Sex: MFINAL REPORT [...] None. Signed: Sondra Reinoso [facility] Verified Date/Time: 08/19/2022 08:36:27 [id number] 04:50:43 Test Item Value Reference Range Interpretation Comments MAGNESIUM (BEAKER) (test code = 2.0 mg/dL 1.6-2.6 627) Radiology Orderly ID - ADMINBASIC METABOLIC [id number] 04:50:42 Test Item Value Reference Range Interpretation [...] De scription 1092) sq m Result G1 Norm al or high >=90 G2 Mildly decreased 60-89 [...] not appl icable for dialysis patien ts Radiology Orderly ID - ADMINCBC W/PLT COUNT & AUTO [id number] 04:32:49 Test Item Value Reference Range Interpretation [...] = 2801) RAD, CHEST, 1 VIEW, NON [id number] 07:07:00Reason for exam:->post-opShould this be performed at the bedside?->Yes [facility] 1955 Sex: MFINAL REPORT [...] findings: None. Signed: Sondra Reinoso Verified Date/Time: 08/18/2022 07:07:14 [id number] 05:07:15 Test Item Value Reference Range Interpretation Comments MAGNESIUM (BEAKER) (test code = 2.1 mg/dL 1.6-2.6 627) Radiology Orderly ID - MARIOBASIC METABOLIC [id number] 05:07:14 Test Item Value Reference Range Interpretation [...] not appl icable for dialysis patien ts Radiology Orderly ID - MARIOCBC W/PLT COUNT & AUTO [id number] 04:28:33 Test Item Value Reference Range Interpretation [...] PERCENT (BEAKER) (test code = 2801) POC-Glucose [id number] 17:50:35 Test Item Value Reference Range Interpretation Comments POC-Glucose Meter (test 145 mg/dL 70-110 H : TE STED AT [facility] code = 1538) [address] [place] [address], [facility] 30: Radiology Orderly/Techni garth ID = [id number] for Mary Roger Lab Interpretation (test Abnormal code = 22522-1) [facility] [id number] 17:50:35 Test Item Value Reference Range Interpretation Comments POC-Glucose Meter (test 145 mg/dL 70-110 H : TE STED AT [facility] code = 1538) [address] [place] [address], 770 30: Radiology Orderly/Techni garth ID = [id number] for Roger, Jeannieel Lab Interpretation (test Abnormal code = 04807-5) [facility] [id number] 17:50:35 Test Item Value Reference Range Interpretation Comments POC-Glucose Meter (test 145 mg/dL 70-110 H : TE STED AT [facility] code = 1538) [address] [place] [address], [facility] 30: Radiology Orderly/Techni garth ID = [id number] for Roger, Nevel Lab Interpretation (test Abnormal code = 42706-3) [facility] [id number] 17:50:35 Test Item Value Reference Range Interpretation Comments POC-Glucose Meter (test 145 mg/dL 70-110 H : TE STED AT [facility] code = 1538) [address] [place] [address], [facility] 30: Radiology Orderly/Techni garth ID = [id number] for Roger, Nevel Lab Interpretation (test Abnormal code = 94654-9) [facility] [id number] 17:50:35 Test Item Value Reference Range Interpretation Comments POC-GLUCOSE METER 145 mg/dL 70-110 H : [facility] (test code = DIANA Motley [facility], 153) [address]: Radiology Orderly/Techni garth ID = [id number] for Sh tal, Jeannieel POCT-GLUCOSE [id number] 11:54:06 Test Item Value Reference Range Interpretation Comments POC-GLUCOSE METER 91 mg/dL 70-110 : TESTED A T [facility] 6720 (BEAKER) (test code = DIANA Motley [facility], 1538) [address]: Radiology Orderly/Techni garth ID = [id number] for Roger , Jeannieel POCT-GLUCOSE [id number] 08:54:56 Test Item Value Reference Range Interpretation Comments POC-GLUCOSE METER 103 mg/dL 70-110 : Notified RN/MD: TESTED (BEAKER) (test [facility] 67[facility] = 1538) [facility], [facility] 30: Radiology Orderly/Techni garth ID = [id number] for My jane ([facility] Traveler), Sandra chavez ([employer])2022-08-17 07:19:52 [...] CONCENTRATION Adequate (CELLAVISION)(BEAKER) (test code = 3438) Radiology Orderly ID - Katerina Dillard comments: Slide comments:CBC W/PLT COUNT & AUTO [id number] 07:19:51 Test Item Value Reference Range Interpretation [...] = 413) RAD, CHEST, 1 VIEW, NON [id number] 06:51:00Reason for exam:->post-opShould this be performed at the bedside?->Yes [facility] : 1955 Sex: MFINAL REPORT RAD, CHEST, 1 VIEW, NON DEPT INDICATION: post-op COMPARISON: Prior day's exam FINDINGS: Portable frontal view of the chest. IMPRESSION: Support Lines: Two right-sided chest tubes. Central catheter tip overlies the atriocaval junction. Lungs and pleura: Unchanged diffuse inte rstitial thickening, representing singly or in combination, interstitial edema and/or pneumonitis. No significant pneumothorax. Heart and mediastinum: Stable contours. Stable surgical changes. Additional findings: None. Signed: Sondra Reinosoeport Verified Date/Time: 08/17/2022 06:51:58 BASIC METABOLIC PANEL [...] not appl icable for dialysis patien ts Radiology Orderly ID - [id number] 04:24:19 Test Item Value Reference Range Interpretation Comments MAGNESIUM (BEAKER) (test code = 2.0 mg/dL 1.6-2.6 627) Radiology Orderly ID - marioPOCT-GLUCOSE [id number] 00:47:34 Test Item Value Reference Range Interpretation Comments POC-GLUCOSE METER 110 mg/dL 70-110 : TESTED A T [facility] 6720 ([facility]) (test code = [facility], 1538) [address]: Radiology Orderly/Techni garth ID = [id number] for TRISHA CHILEL MS POCT-GLUCOSE [id number] 17:44:24 Test Item Value Reference Range Interpretation Comments POC-GLUCOSE METER 132 mg/dL 70-110 H : TESTED A T [facility] 6720 ([facility]) (test code [facility], = 1538) [address]: Radiology Orderly/Techni garth ID = [id number] for José Antonio Ledesma POCT-GLUCOSE [id number] 11:34:39 Test Item Value Reference Range Interpretation Comments POC-GLUCOSE METER 112 mg/dL 70-110 H : Notified RN/MD: [facility] (test code = TESTED AT [facility] 6720 1538) [facility], [address]: Radiology Orderly/Techni garth ID = [id number] for Sondra Person RAD, CHEST, 1 VIEW, NON [id number] 06:55:00Reason for exam:->post-opShould this be performed at the bedside?->Yes [facility] : 1955 Sex: MFINAL REPORT [...] surgical changes. Additional findings: None. Signed: Sondra Reinosoeport Verified Date/Time: 08/16/2022 06:55:12 BASIC METABOLIC [id number] 04:17:17 Test Item Value Reference Range Interpretation [...] not appl icable for dialysis patien ts Radiology Orderly ID - OLGA [id number] 04:17:17 Test Item Value Reference Range Interpretation Comments MAGNESIUM (BEAKER) (test code = 1.7 mg/dL 1.6-2.6 627) Radiology Orderly ID - OLGA WCALCIUM, [id number] 04:01:16 Test Item Value Reference Range Interpretation Comments CALCIUM IONIZED (BEAKER) (test 1.00 mmol/L 1.12-1.27 L code = 698) PH, BLOOD (BEAKER) (test code = 7.37 1810) Blood gas, [id number] 04:01:15 Test Item Value Reference Range Interpretation Comments pH, Arterial (test code 7.37 7.35-7.45 = 2744-1) pCO2, Arterial (test 47 See_Comment H [Autom ated message] code = 2019-) The system [facility] generated this result transmit yisel reference range : 35 - 45 mm Hg. The reference range was not used to interpret this result as normal/abnormal . pO2, Arterial (test 196 See_Comment H [Automa yisel message] code = 2703-7) The system [employer] generated this result transmit yisel reference range [...] 50 Lab Interpretation Abnormal (test code = 80685-1) [facility], [id number] 04:01:15 Test Item Value Reference Range Interpretation Comments pH, Arterial (test code 7.37 7.35-7.45 = 2744-1) pCO2, Arterial (test 47 See_Comment H [Autom ated message] code = 2018-) The system [facility] generated this result transmit yisel reference range : 35 - 45 mm Hg. The reference range was not used to interpret this result as normal/abnormal . pO2, Arterial (test 196 See_Comment H [Automa yisel message] code = 2703-7) The system [facility] generated this result transmit yisel [...] 50 Lab Interpretation Abnormal (test code = 16043-0) [facility], [id number] 04:01:15 Test Item Value Reference Range Interpretation Comments pH, Arterial (test code 7.37 7.35-7.45 = 2744-1) pCO2, Arterial (test 47 See_Comment H [Autom ated message] code = 2019-) The system [employer] generated this result transmit yisel reference range : 35 - 45 mm Hg. The reference range was not used to interpret this result as normal/abnormal . pO2, Arterial (test 196 See_Comment H [Automa yisel message] code = 2703-7) The system [employer] generated this result transmit yisel reference range [...] 50 Lab Interpretation Abnormal (test code = 29945-9) [facility] gas, knoxyjsy6654-04-50 04:01:15 Test Item Value Reference Range Interpretation Comments pH, Arterial (test code 7.37 7.35-7.45 = 2744-1) pCO2, Arterial (test 47 See_Comment H [Autom ated message] code = 2019-) The system [employer] generated this result transmit yisel reference range : 35 - 45 mm Hg. The reference range was not used to interpret this result as normal/abnormal . pO2, Arterial (test 196 See_Comment H [Automa yisel message] code = 2703-7) The system [employer] generated this result transmit yisel reference range [...] 50 Lab Interpretation Abnormal (test code = 61239-8) [facility] [id number] 04:01:15 Test Item Value Reference Range Interpretation [...] 1819) 50.0 CBC W/PLT COUNT & AUTO [id number] 03:51:26 Test Item Value Reference Range Interpretation [...] (BEAKER) (test code = 2801) HEMOGLOBIN AND [id number] 00:41:22 Test Item Value Reference Range Interpretation Comments HEMOGLOBIN (BEAKER) (test code = 8.3 GM/DL 13.7-17.5 L 410) HEMATOCRIT (BEAKER) (test code = 25.3 % 40.1-51.0 L 411) Radiology Orderly ID - 6000POCT-GLUCOSE [id number] 00:39:56 Test Item Value Reference Range Interpretation Comments POC-GLUCOSE METER 175 mg/dL 70-110 H : TESTED A T BSC 6720 (BEAKER) (test code = [place], 1538) [address]: Radiology Orderly/Techni garth ID = [id number] for [place] TRISHA FLOR [id number] 17:26:55 Test Item Value Reference Range Interpretation Comments MAGNESIUM (BEAKER) 1.8 mg/dL 1.6-2.6 Specimen slightly (test code = 627) hemolyzed Radiology Orderly ID - [id number] 17:26:55 Test Item Value Reference Range Interpretation Comments PHOSPHORUS (BEAKER) 3.3 mg/dL 2.3-4.7 Specimen slightly (test code = 604) hemolyzed Radiology Orderly ID - BSPOCT-GLUCOSE [id number] 16:58:26 Test Item Value Reference Range Interpretation Comments POC-GLUCOSE METER 168 mg/dL 70-110 H : TESTED A T BSC 6720 (BEAKER) (test code = DIANA [place], 1538) [address]: Radiology Orderly/Techni garth ID = [id number] for IB ARRAKLAEE RAD, CHEST, 1 VIEW, NON [id number] 16:27:00Reason for exam:->post bilobectomyShould this be performed at the bedside?->Yes [facility] : 1955 Sex: MFINAL REPORT [...] [place] Verified Date/Time: 08/15/2022 16:27:10 Reading Location: [place] [facility] BASIC METABOLIC [id number] 16:04:40 Test Item Value Reference Range Interpretation [...] not appl icable for dialysis patien ts Radiology Orderly ID - [id number] 15:55:57 Test Item Value Reference Range Interpretation [...] 2.5-3.5 for patients with mechanical heart valves.CALCIUM, [id number] 15:39:52 Test Item Value Reference Range Interpretation [...] 0-0 (BEAKER) (test code = 413) Prepare [id number] 15:14:00 Test Item Value Reference Range Interpretation Comments CROSSMATCH (test code = COMPATIBLE 1913) Unit ABO (test code = A Pos 9178561) UNIT NUMBER (test code = [id number] 934-0) Status (test code = RETURNED FROM ISSUE 3052148) Blood Bank Product (test RED BLOOD CELLS code = 2263) PRODUCT CODE (test code = S0533B70 933-2) [facility] [id number] 15:14:00 Test Item Value Reference Range Interpretation Comments Unit ABO (test code = A Pos 2465748) UNIT NUMBER (test code = [id number] 934-0) Status (test code = RETURNED FROM ISSUE 7447971) Blood Bank Product (test FFP code = 2263) PRODUCT CODE (test code = Y0528A87 933-2) [facility] [id number] 15:14:00 Test Item Value Reference Range Interpretation Comments CROSSMATCH (test code = COMPATIBLE 2264) Unit ABO (test code = A Pos 8275758) UNIT NUMBER (test code = [id number] 934-0) Status (test code = RETURNED FROM ISSUE 0912168) Blood Bank Product (test RED BLOOD CELLS code = 2263) PRODUCT CODE (test code = F0998Q58 933-2) [facility] [id number] 15:14:00 Test Item Value Reference Range Interpretation Comments Unit ABO (test code = A Pos 9771755) UNIT NUMBER (test code = [id number] 934-0) Status (test code = RETURNED FROM ISSUE 2851971) Blood Bank Product (test FFP code = 2263) PRODUCT CODE (test code = I3405H83 933-2) [facility] [id number] 15:14:00 Test Item Value Reference Range Interpretation Comments CROSSMATCH (test code = COMPATIBLE 2264) Unit ABO (test code = A Pos 3443229) UNIT NUMBER (test code = [id number] 934-0) Status (test code = RETURNED FROM ISSUE 0397151) Blood Bank Product (test RED BLOOD CELLS code = 2263) PRODUCT CODE (test code = O8801U40 933-2) [facility] [id number] 15:14:00 Test Item Value Reference Range Interpretation Comments Unit ABO (test code = A Pos 8087272) UNIT NUMBER (test code = [id number] 934-0) Status (test code = RETURNED FROM ISSUE 1848810) Blood Bank Product (test FFP code = 2263) PRODUCT CODE (test code = D3229P35 933-2) [facility] [id number] 15:14:00 Test Item Value Reference Range Interpretation Comments CROSSMATCH (test code = COMPATIBLE 2264) Unit ABO (test code = A Pos 7828316) UNIT NUMBER (test code = [id number] 934-0) Status (test code = RETURNED FROM ISSUE 1894424) Blood Bank Product (test RED BLOOD CELLS code = 2263) PRODUCT CODE (test code = M9360O41 933-2) [facility] [id number] 15:14:00 Test Item Value Reference Range Interpretation Comments Unit ABO (test code = A Pos 8302628) UNIT NUMBER (test code = [id number] 934-0) Status (test code = RETURNED FROM ISSUE 15100820) Blood Bank Product (test FFP code = 2263) PRODUCT CODE (test code = Y3461Q70 933-2) [facility] [id number] 14:22:14 Test Item Value Reference Range Interpretation Comments Sodium (test code = 2951-2) 134 meq/L 136-145 L Lab Interpretation (test code = Abnormal 22678-3) [facility] [id number] 14:22:14 Test Item Value Reference Range Interpretation Comments Sodium (test code = 2951-2) 134 meq/L 136-145 L Lab Interpretation (test code = Abnormal 68164-0) [facility]Stat [id number] 14:22:14 Test Item Value Reference Range Interpretation Comments Sodium (test code = 2951-2) 134 meq/L 136-145 L Lab Interpretation (test code = Abnormal 48458-4) [facility]Stat [id number] 14:22:14 Test Item Value Reference Range Interpretation Comments Sodium (test code = 2951-2) 134 meq/L 136-145 L Lab Interpretation (test code = Abnormal 43430-5) [facility] NA-STAT [id number] 14:22:14 Test Item Value Reference Range Interpretation Comments SODIUM (BEAKER) (test code = 381) 134 meq/L 136-145 L HGB/HCT (H&H)-Stat [id number] 14:22:08 Test Item Value Reference Range Interpretation Comments Hemoglobin (test code = 9.3 See_Comment L [Au tomated message] 218-7) The system PagerDuty generated this result transmitted ref erence range: 13.0 - 1 6.8 GM/DL. The refe rence range was not u sed to interpret this result as normal/abnor mal. Hematocrit (test code = 27.0 % 40.0-50.0 L 4544-3) Lab Interpretation (test Abnormal code = 54596-5) [facility]Stat [id number] 14:22:08 Test Item Value Reference Range Interpretation Comments Hemoglobin (test code = 9.3 See_Comment L [Au tomated message] 718-7) The system [employer]ager[employer] generated this result transmitted ref erence range: 13.0 - 1 6.8 GM/DL. The refe rence range was not u sed to interpret this result as normal/abnor mal. Hematocrit (test code = 27.0 % 40.0-50.0 L 4544-3) Lab Interpretation (test Abnormal code = 80591-2) [facility] ([facility]Stat [id number] 14:22:08 Test Item Value Reference Range Interpretation Comments Hemoglobin (test code = 9.3 See_Comment L [Au tomated message] 718-7) The system [employer] generated this result transmitted ref erence range: 13.0 - 1 6.8 GM/DL. The refe rence range was not u sed to interpret this result as normal/abnor mal. Hematocrit (test code = 27.0 % 40.0-50.0 L 4544-3) Lab Interpretation (test Abnormal code = 79768-2) [facility] ([facility]Stat [id number] 14:22:08 Test Item Value Reference Range Interpretation Comments Hemoglobin (test code = 9.3 See_Comment L [Au tomated message] 718-7) The system [employer]ager[employer] generated this result transmitted ref erence range: 13.0 - 1 6.8 GM/DL. The refe rence range was not u sed to interpret this result as normal/abnor mal. Hematocrit (test code = 27.0 % 40.0-50.0 L 4544-3) Lab Interpretation (test Abnormal code = 28669-2) [facility] ([facility]&H[facility] - STAT [id number] 14:22:08 Test Item Value Reference Range Interpretation Comments HEMOGLOBIN (BEAKER) (test code = 9.3 GM/DL 13.0-16.8 L 410) HEMATOCRIT (BEAKER) (test code = 27.0 % 40.0-50.0 L 411) BLOOD GAS, [id number] 14:22:07 Test Item Value Reference Range Interpretation [...] (BEAKER) (test code = 1819) 90.0 CALCIUM, [id number] 14:21:15 Test Item Value Reference Range Interpretation Comments CALCIUM IONIZED (BEAKER) (test 1.22 mmol/L 1.12-1.27 code = 698) PH, BLOOD (BEAKER) (test code = 7.36 1810) Potassium-Stat [id number] 14:20:58 Test Item Value Reference Range Interpretation Comments Potassium (test code = 2823-3) 4.2 meq/L 3.6-5.5 Lab Interpretation (test code = Normal 81113-7) [facility] Hospital[facility]assium-Stat [id number] 14:20:58 Test Item Value Reference Range Interpretation Comments Potassium (test code = 2823-3) 4.2 meq/L 3.6-5.5 Lab Interpretation (test code = Normal 15179-4) [facility]assium[facility]Stat [id number] 14:20:58 Test Item Value Reference Range Interpretation Comments Potassium (test code = 2823-3) 4.2 meq/L 3.6-5.5 Lab Interpretation (test code = Normal 42577-3) [facility] HospitalPotassium-Stat [id number] 14:20:58 Test Item Value Reference Range Interpretation Comments Potassium (test code = 2823-3) 4.2 meq/L 3.6-5.5 Lab Interpretation (test code = Normal 87985-8) [facility] HospitalPOTASSIUM-STAT [id number] 14:20:58 Test Item Value Reference Range Interpretation Comments POTASSIUM (BEAKER) (test code = 4.2 meq/L 3.6-5.5 379) Glucose-Stat [id number] 14:20:53 Test Item Value Reference Range Interpretation Comments Glucose (test code = 2345-7) 174 mg/dL 70-110 H Lab Interpretation (test code = Abnormal 74750-5) [facility] HospitalGlucose[facility]Stat [id number] 14:20:53 Test Item Value Reference Range Interpretation Comments Glucose (test code = 2345-7) 174 mg/dL 70-110 H Lab Interpretation (test code = Abnormal 20678-8) [facility]Glucose[facility]Stat [id number] 14:20:53 Test Item Value Reference Range Interpretation Comments Glucose (test code = 2345-7) 174 mg/dL 70-110 H Lab Interpretation (test code = Abnormal 60397-5) [facility] HospitalGlucose-Stat [id number] 14:20:53 Test Item Value Reference Range Interpretation Comments Glucose (test code = 2345-7) 174 mg/dL 70-110 H Lab Interpretation (test code = Abnormal 66648-7) [facility] HospitalGLUCOSE-STAT [id number] 14:20:53 Test Item Value Reference Range Interpretation Comments GLUCOSE RANDOM (BEAKER) (test code 174 mg/dL 70-110 H = 652) Lactic Acid, [id number] 13:38:20 Test Item Value Reference Range Interpretation Comments Lactate, Art (test code = 1.6 mmol/L 0.5-2.2 2874) DONAVON (test code = DONAVON) Radiology Orderly ID - DB Lab Interpretation (test Normal code = 85893-0) [facility] HospitalL[facility] Acid, [id number] 13:38:20 Test Item Value Reference Range Interpretation Comments Lactate, Art (test code = 1.6 mmol/L 0.5-2.2 2874) DONAVON (test code = DONAVON) Radiology Orderly ID - DB Lab Interpretation (test Normal code = 27059-2) [facility] HospitalL[facility] Acid, [id number] 13:38:20 Test Item Value Reference Range Interpretation Comments Lactate, Art (test code = 1.6 mmol/L 0.5-2.2 2874) DONAVON (test code = DONAVON) Radiology Orderly ID - DB Lab Interpretation (test Normal code = 93738-3) [facility], [id number] 13:38:20 Test Item Value Reference Range Interpretation Comments Lactate, Art (test code = 1.6 mmol/L 0.5-2.2 2874) DONAVON (test code = DONAVON) Radiology Orderly ID - DB Lab Interpretation (test Normal code = 68771-7) [facility] HospitalLACTIC ACID, [id number] 13:38:20 Test Item Value Reference Range Interpretation Comments LACTATE BLOOD ARTERIAL (2) 1.6 mmol/L 0.5-2.2 (BEAKER) (test code = 2874) Radiology Orderly ID - DBSODIUM NA-STAT [id number] 13:29:13 Test Item Value Reference Range Interpretation Comments SODIUM (BEAKER) (test code = 381) 133 meq/L 136-145 L BLOOD GAS, [id number] 13:29:07 Test Item Value Reference Range Interpretation [...] code = 1818) HGB/HCT (H&H) - STAT [id number] 13:29:07 Test Item Value Reference Range Interpretation Comments HEMOGLOBIN (BEAKER) (test code = 9.6 GM/DL 13.0-16.8 L 410) HEMATOCRIT (BEAKER) (test code = 28.0 % 40.0-50.0 L 411) CALCIUM, [id number] 13:28:32 Test Item Value Reference Range Interpretation Comments CALCIUM IONIZED (BEAKER) (test 1.18 mmol/L 1.12-1.27 code = 698) PH, BLOOD (BEAKER) (test code = 7.37 1810) POTASSIUM-STAT [id number] 13:23:59 Test Item Value Reference Range Interpretation Comments POTASSIUM (BEAKER) (test code = 4.2 meq/L 3.6-5.5 379) GLUCOSE-STAT [id number] 13:23:53 Test Item Value Reference Range Interpretation Comments GLUCOSE RANDOM (BEAKER) (test code 185 mg/dL 70-110 H = 652) BLOOD GAS, [id number] 12:10:32 Test Item Value Reference Range Interpretation [...] (test code = 1819) 100.0 SODIUM NA-STAT [id number] 12:10:32 Test Item Value Reference Range Interpretation Comments SODIUM (BEAKER) (test code = 381) 133 meq/L 136-145 L HGB/HCT (H&H) - STAT [id number] 12:10:32 Test Item Value Reference Range Interpretation Comments HEMOGLOBIN (BEAKER) (test code = 10.7 GM/DL 13.0-16.8 L 410) HEMATOCRIT (BEAKER) (test code = 31.0 % 40.0-50.0 L 411) CALCIUM, [id number] 12:10:31 Test Item Value Reference Range Interpretation Comments CALCIUM IONIZED (BEAKER) (test 1.12 mmol/L 1.12-1.27 code = 698) PH, BLOOD (BEAKER) (test code = 7.37 1810) GLUCOSE-STAT [id number] 12:10:10 Test Item Value Reference Range Interpretation Comments GLUCOSE RANDOM (BEAKER) (test code 172 mg/dL 70-110 H = 652) POTASSIUM-STAT [id number] 12:10:10 Test Item Value Reference Range Interpretation Comments POTASSIUM (BEAKER) (test code = 4.5 meq/L 3.6-5.5 379) SODIUM NA-STAT [id number] 11:04:37 Test Item Value Reference Range Interpretation Comments SODIUM (BEAKER) (test code = 381) 133 meq/L 136-145 L HGB/HCT (H&H) - STAT [id number] 11:04:37 Test Item Value Reference Range Interpretation Comments HEMOGLOBIN (BEAKER) (test code = 10.9 GM/DL 13.0-16.8 L 410) HEMATOCRIT (BEAKER) (test code = 32.0 % 40.0-50.0 L 411) CALCIUM, [id number] 11:04:36 Test Item Value Reference Range Interpretation Comments CALCIUM IONIZED (BEAKER) (test 1.08 mmol/L 1.12-1.27 L code = 698) PH, BLOOD (BEAKER) (test code = 7.31 1810) BLOOD GAS, [id number] 11:04:36 Test Item Value Reference Range Interpretation [...] (BEAKER) (test code = 1819) 100.0 GLUCOSE-STAT [id number] 11:04:09 Test Item Value Reference Range Interpretation Comments GLUCOSE RANDOM (BEAKER) (test code 167 mg/dL 70-110 H = 652) POTASSIUM-STAT [id number] 11:04:09 Test Item Value Reference Range Interpretation Comments POTASSIUM (BEAKER) (test code = 4.6 meq/L 3.6-5.5 379) CALCIUM, [id number] 10:07:26 Test Item Value Reference Range Interpretation Comments CALCIUM IONIZED (BEAKER) (test 1.11 mmol/L 1.12-1.27 L code = 698) PH, BLOOD (BEAKER) (test code = 7.32 1810) BLOOD GAS, [id number] 10:07:25 Test Item Value Reference Range Interpretation [...] = 1819) 90.0 HGB/HCT (H&H) - STAT [id number] 10:07:19 Test Item Value Reference Range Interpretation Comments HEMOGLOBIN (BEAKER) (test code = 12.1 GM/DL 13.0-16.8 L 410) HEMATOCRIT (BEAKER) (test code = 36.0 % 40.0-50.0 L 411) SODIUM NA-STAT [id number] 10:06:27 Test Item Value Reference Range Interpretation Comments SODIUM (BEAKER) (test code = 381) 136 meq/L 136-145 POTASSIUM-STAT [id number] 10:06:27 Test Item Value Reference Range Interpretation Comments POTASSIUM (BEAKER) (test code = 3.9 meq/L 3.6-5.5 379) GLUCOSE-STAT [id number] 10:06:26 Test Item Value Reference Range Interpretation Comments GLUCOSE RANDOM (BEAKER) (test code 152 mg/dL 70-110 H = 652) Prepare [id number] 09:03:00 Test Item Value Reference Range Interpretation Comments CROSSMATCH (test code = 2264) COMPATIBLE Unit ABO (test code = A Pos 7750314) UNIT NUMBER (test code = [id number] 934-0) Status (test code = 7101371) ISSUED Blood Bank Product (test code RED BLOOD CELLS = 2263) PRODUCT CODE (test code = Q9433U18 933-2) [facility] okunjy0115-12-26 09:03:00 Test Item Value Reference Range Interpretation Comments Unit ABO (test code = 4238714) A Pos UNIT NUMBER (test code = 934-0) [id number] Status (test code = 3328809) ISSUED Blood Bank Product (test code = FFP 2263) PRODUCT CODE (test code = U4331R09 933-2) [facility]BASIC [facility]OLIC [id number] 04:23:33 Test Item Value Reference Range Interpretation [...] not appl icable for dialysis patien ts Radiology Orderly ID - [id number] 04:23:33 Test Item Value Reference Range Interpretation Comments MAGNESIUM (BEAKER) (test code = 2.2 mg/dL 1.6-2.6 627) Radiology Orderly ID - [id number] 04:23:33 Test Item Value Reference Range Interpretation Comments PHOSPHORUS (BEAKER) (test code = 3.1 mg/dL 2.3-4.7 604) Radiology Orderly ID - DBSARS-CoV2/RT-PCR (Asymptomatic ONLY)2022-08-15 03:15:17 Test Item Value Reference Interpretation Comments Range SARS-COV2/RT-PCR Negative Negative The SARS-Co V-2 (test code = target nucleic 01319-9) acids are not detected in thi s [...] revoked sooner. Fact Sheet for Healthcare Providers: https://www.[employer]/Documents/Xp ert%20Xpress%20SAR S%20CoV-2/Fact%20S heets/302-3802%20S ARS-COV-2%20HEALTH CARE%20PROVIDERS%2 0FACT%20SHEET.pdf Fact Sheet for Healthcare Patients: https://www.[employer]/Documents/Xp ert%20Xpress%20SAR S%20CoV-2/Fact%20S heets/302-3801%20S ARS-COV-2%20PATIEN T%20FACT%20SHEET.p df Lab Interpretation Normal (test code = 56810-2) [facility] (Asymptomatic ONLY)2022-08-15 03:15:17 Test Item Value Reference Interpretation Comments Range SARS-COV2/RT-PCR Negative Negative The SARS-Co V-2 (test code = target nucleic 44781-7) acids are not detected in thi s [...] revoked sooner. Fact Sheet for Healthcare Providers: https://www.[employer]/Documents/Xp ert%20Xpress%20SAR S%20CoV-2/Fact%20S heets/302-3802%20S ARS-COV-2%20HEALTH CARE%20PROVIDERS%2 0FACT%20SHEET.pdf Fact Sheet for Healthcare Patients: https://www.[employer]/Documents/Xp ert%20Xpress%20SAR S%20CoV-2/Fact%20S heets/302-3801%20S ARS-COV-2%20PATIEN T%20FACT%20SHEET.p df Lab Interpretation Normal (test code = 28027-0) [facility] (Asymptomatic ONLY)2022-08-15 03:15:17 Test Item Value Reference Interpretation Comments Range SARS-COV2/RT-PCR Negative Negative The SARS-Co V-2 (test code = target nucleic 80530-6) acids are not detected in thi s [...] revoked sooner. Fact Sheet for Healthcare Providers: https://www.[employer]/Documents/Xp ert%20Xpress%20SAR S%20CoV-2/Fact%20S heets/302-3802%20S ARS-COV-2%20HEALTH CARE%20PROVIDERS%2 0FACT%20SHEET.pdf Fact Sheet for Healthcare Patients: https://wwwVega-Chi/Documents/Xp ert%20Xpress%20SAR S%20CoV-2/Fact%20S heets/302-3801%20S ARS-COV-2%20PATIEN T%20FACT%20SHEET.p df Lab Interpretation Normal (test code = 05066-4) [facility] (Asymptomatic ONLY)2022-08-15 03:15:17 Test Item Value Reference Interpretation Comments Range SARS-COV2/RT-PCR Negative Negative The SARS-Co V-2 (test code = target nucleic 70240-4) acids are not detected in thi s [...] revoked sooner. Fact Sheet for Healthcare Providers: https://www.[employer]/Documents/Xp ert%20Xpress%20SAR S%20CoV-2/Fact%20S heets/302-3802%20S ARS-COV-2%20HEALTH CARE%20PROVIDERS%2 0FACT%20SHEET.pdf Fact Sheet for Healthcare Patients: https://www.[employer]/Documents/Xp ert%20Xpress%20SAR S%20CoV-2/Fact%20S heets/302-3801%20S ARS-COV-2%20PATIEN T%20FACT%20SHEET.p df Lab Interpretation Normal (test code = 91707-9) [facility] (Asymptomatic ONLY)2022-08-15 03:15:17 Test Item Value Reference Interpretation Comments Range SARS-COV2/RT-PCR Negative Negative The SARS-Co V-2 (test code = target nucleic 43426-2) acids are not detected in thi s [...] revoked sooner. Fact Sheet for Healthcare Providers: https://www.[employer]/Documents/Xp ert%20Xpress%20SAR S%20CoV-2/Fact%20S heets/302-3802%20S ARS-COV-2%20HEALTH CARE%20PROVIDERS%2 0FACT%20SHEET.pdf Fact Sheet for Healthcare Patients: https://www.[employer]/Documents/Xp ert%20Xpress%20SAR S%20CoV-2/Fact%20S heets/302-3801%20S ARS-COV-2%20PATIEN T%20FACT%20SHEET.p df Lab Interpretation Normal (test code = 58685-9) [facility] ([facility])2022-08-15 03:15:17 Test Item Value Reference Range Interpretation Comments SARS-COV2/RT-PCR Negative Negative The SARS-Co V-2 target (test code = nucleic acids a re not 1673091) detected in thi s specimen. Negative result [...] revoked sooner. Fact Sheet for Healthcare Providers: https://www.[employer]/Documents/Xpert%20Xpress%20SARS%20CoV-2/Fact%20Sheets/302-3802%82JYHS-FCU-0%20 HEALTHCARE%20PROVIDERS%20FACT%20SHEET.pdf Fact Sheet for Healthcare Patients: https://www.[employer]/Documents/Xpert%20Xp ress%20SARS%20CoV-2/Fact%20Sheets/302-3801%22RWBH-VMN-9%20PATIENT%20FACT%20SHEET .pdfCBC W/PLT COUNT & AUTO [id number] 02:34:00 Test Item Value Reference Range Interpretation [...] (test code = 2801) CT, CHEST, WITH ZYWFKGCY7400-87-45 00:30:00poorly differentiated non-small cell carcinoma of the right lungUnlisted Reason for Exam - Click Yesand Enter Reason Below->NoSIER[facility] : 1955 Sex: [...] attention on future restaging exams Signed: Dudley Asherthe [facility] Verified Date/Time: 08/15/2022 00:30:08 BASIC METABOLIC [id number] 21:33:06 Test Item Value Reference Range Interpretation [...] De scription 1092) sq m Result G1 Norm al or high >=90 G2 Mildly decreased 60-89 [...] not appl icable for dialysis patien ts Radiology Orderly ID - BSCOMPREHENSIVE METABOLIC [id number] 15:30:39 Test Item Value Reference Range Interpretation [...] not appl icable for dialysis patien ts Radiology Orderly ID - ADMINPT/[id number] 14:37:48 Test Item Value Reference Range Interpretation [...] mechanical heart valves.CBC W/PLT COUNT & AUTO [id number] 14:32:06 Test Item Value Reference Range Interpretation [...] = 2801) PULMONARY QUANT DIFFERENTIAL FUNCT WITH [id number] 12:52:00Reason for Exam:->c34.11[facility] : 1955 Sex: MFINAL REPORT PROCEDURE: perfusion LUNG SCAN w/differential function CPT CODE: 45877 INDICATION: 67-year-old male, lobectomy versus pneumonectomy. TECHNIQUE: [...] BY EBUS 2022-07-14 15:25:24Medical Cytology Report Case: [id number] Authorizing Provider: Izabela Galvan Jr., Collected: 07/13/2022 02:09 PM Ordering Location: [facility] Received: 07/13/2022 02:42 PM PERIOPERATIVE SERVICES Pathologist: Lopez Reyna MD Specimen: Lymph Node, Subcarinal, Station 7 LYMPH NODE, SUBCARINAL STATION 7, EBUS FNA (DIRECT SEMARS AND CELL BLOCK): - NEGATIVE FOR EPITHELIAL MALIGNANCY. - BENIGN FRAGMENTS OF ANTHRACOTIC LYMPH NODE TISSUE. Signing Pathologist Direct Phone Line: [phone] signed by Lopez Reyna MD on 07/14/2022 at 3:25 PMPlease also see cytopathology cases: [id number], [id number], [id number], [id number] y.o M w/ h/o arthritis, anxiety, depression, [...] CARCINOMA SEEN(REPORTED BY PATHOLOGIST LOPEZ REYNA M.D. 1:40PM)Performed.[facility], Department of Pathology, [address] [place] [address], LztxyuCity [facility] Hope [facility], Department of Pathology, [address] [place] [address], [facility], [address] [place] [address], [employer] [facility] by [id number] 13:35:13 Test Item Value Reference Range Interpretation Comments Case Report (test code = Medical Cytology 104) Report Case: [id number] Authorizing Provider: Izabela Galvan Jr., Collected: 07/13/2022 02:10 PM Ordering Location: [facility] Received: 07/13/2022 02:43 PM PERIOPERATIVE SERVICES Pathologist: Lopez Reyna MD Specimen: Lymph Node, Interlobar, Left, Station 11L DIAGNOSIS (test code = z0kchAQnNAAhr9hrMLLfl 3220) GFuZzEwMzNcZnRuYmpcdW MxIHtccnRmMVxlcGljOTY aSoprudNtYZWstWYlW7Yz pmkmWHsfZQ5eBZ7xzYyul VCqaHWlMXGrHwUpn1rek1 00bZHul7ueTNFPwlptgRx 5lBreR73um7I0HjaiV14s tIClJZP5SNBuTRRocADuG BRzWBY6HSVcrMFjD6vtGP WjWP7ixkmbXKjyJKkxTTY xqIY5WBFamLDaU4BoQUKb JNteNJGnydl7GbZqEz5sk GVyeTcyMFxwYXJkXHBsYW luXGZzMjAgTFlNUEggTk9 ERSwgTEVGVCBJTlRFUkxP AgVCNDOHMZDVW14nESILP CBFQlVTIEZOQSAoRElSRU RQJUYMNZWBBoBPYqGaQ2E BQVBIMR8BSlf3RKHomcMm RZByZA3WZ8NXNWICNHCZO wMOTUxLGMXAJMHBLR2VEH nLXnEXG2iuDBQrmeBpKGT tIEJFTklHTiBBTlRIUkFD E6ZOCgDLRA3IBXLGX1HQS BPHASgYAC5NVx3tSZMlzr 86VGV1WbPee8W4NTK4NFV tPEAoa7cpIURyfIKdJbIb MzNcZnRuYmpcdWMxXGRlZ ySea4qai322kMNah3jhBF CeDrC1iXBtOHTnrLTmG65 8JYIsSYmek9snh4OlURZa qFKhx4A6CGXHqfmluOw0v LqeF12na5K5SmdjO5sfLZ OjKAVnU5AwIY1qWSXhJml 6GLT4VTI6IKNjKJHmD5Bw TU3cLWJqdQGaBSi5y1aoh NuwQCSzYWF9k2yyCYroie XmOT4xol5cdOz1n2uabdI qPIYrVMZccRZKPOFrS4Vg bYtuEs3rsJo4vIwwMopjQ VB0Xjk9YK5yhj95yqk9rM igWQAxawrsMwQ6SUyaQKN kdkigEGf9HQqfSVUkjEY7 TBHprPOeK0XbHTYuXN2oi vi4GQH4QUiwHCJnSiX9NE AotNHiGXNklFnaZIcyt11 0DVD0XnKrAS3wB1Hkf5B0 jN1htRNoWHFyoQFfEcQyT ZLlzv1isJVmDZeim7WfRQ B8fkU5mRCvpHInWSJoWwB 3NHwwAH0rkj40EUHePCN5 yd3qqKWgcXauaaOhbRUxF EfrQ9JcAGDct534FQKuQ4 QjWDBzh2F3nmKwIoOaXCZ syRM4dkT6YPAfIH9exare d6azNDbxQWzeLEOzebI7v pS5YPGarJEzK5JnvZ3ePD VxDC5wuqkya9eaLCQ6DXt oAEYuIKZ4FdKfHTUhr0Iz bjz8SjJkh3PqvEXgBUomY 94hu274MUQwysMpE6ttpK FpblxwbGFpblxmMFxmczI 0XHFsXGxhbmcxMDMzXGhp L5fmVvWvUWBdpExcKNnqx 2NoXGYxXGZzMjJcdGFiXH QpWul8TGIiuXMzWTSiCuX aY8xcihqmVhQOJXRml8yf Y5bdgVHItCNuE4LvAEcow gSsDNevHCaeGlDqIJl4FT 21BoPdPXQlrt68 COMMENT (test code = c8osjIDsKUXmiEK9QiNcV 3359) DEtr3nfp5FacSKrjHQoRT jzhFGhwbWefd04kKQ1cR4 6UT2mRABbMuP7ODOrekL9 Gqd2XHAhATIrtKHgJ760p 4jgp9ebqrLnsNJ2zTtoLM KlfhzmWwD5IKenJQVqlvj sVHo8TAayJADpsJL4IDFv vCCrG4LfMQXcHT5hidn4F AM5XXygFJSmCpH8ERKcsQ PfMMRzgFmnQVaru485KET 4BcPvASFqkiFgfQziyY3d TiWeFGPCeMTrv2ApULqra eFgFAMhQ8u1f7EdeBtpcV 9neSBjYXNlczogQzIzLTA xPzQ3XONGAuThXCCsPqKx cGFyfQ== CPT Code(s) (test code = p1vhxWUuBKKvpRP0EzRnD 3357) AIfb3lnc0DxzUQkbKVmLE svuUQugwTeer04hQG8nX0 6TJ1bMAOrXpL1FYSrasH6 Xqq4VBWiLHAvgQHpH409m 7ynw4fkdpYmiSU7pEdyDO DjomieEwZ8DAmxVZTloid sJMp1FPfqEXFtuHR5BKMa zAFwH2TjLAYxEZ9xecp1R DY4HDerARCmFmS3MVPbhM AxBKKruOjtITffu321CUQ 8NtOpLPQpzmNtfSgfjN0j HvMlENI9SQJ8WbgvCJglP fPlGCa4DxI3YFLfio9= CLINICAL DATA (test code v8mpuRBhCPBeiVB4KeHwE = 3355) HYyo1zme3NraBHkaXAoOQ kfiXZqdbViat86wSY1rB2 2OY3vYVAtGrP0YFTcszJ5 Ass4JCLbXJUtaFZlM774n 7kom2rhxoUveXK2uVqwDD ZlzbnpGnD1WZuaCHKlujx fIDt3PIhnSZQtoDJ7ZVWt fBXbA2QoKLZvZJ6fkda9I KH6FUkbJVCiEwN3VREnkX XwQISisLoeQUqil716CIK 3IfOhNTVcvlFhsNcwiZ4e JyWoVSZ2HJY8Kd5hBRX9Z iBsE53iLKA8zTAncNucJC OlcxljYCW2GEBhWSFaNAR yjL6jOAAJT2XMYP0hXACa ebV2qI9woFEejC4dPAYfL hJaTC3dX3CjB0myq5HtRS ZEFICxcS2vOA9hu5VkuAW yc7WzjN2eAJKjRDIjhV5e PX7qQPA6UE99CQKOMGs8q YTdDMJomL7qz4kjg5JmXc OOKTr7uxrlyy9mpCmnISB qJEVmRWvngfOfm3HjvWz1 IMVfa2WazW7rsjo2PWWqN gAcnmEsiLladGFaPB7een 1zbWFsbCBjZWxsIGNhcmN hsg7pLP7bpGTmgI== SPECIMEN SOURCE (test z0xawLExCKCjcBS8PqRmZ code = 3377) FYek3bql7ZsbXXhsZXbNE ijsBDcgxCzyi39rIM9mU6 8YR4dEECwMtF9MGCctkT7 Kil8PSFfIQGrbAGyC955c 4mqv9kfliRgrJV8dEltLN KhnxyxHhG5DMddDMKyxoo lIIa5CHdkXZYiyPB0AKTm bLKpC3SaNXVtJY3vzbq3M VG6SZnmRWBeNeR7XLApaB WhHYSkpNdfJPpqy747DHR 5DwLpTNRsedGjhRmnwX7t XhOoACZFGM8AZAGOZ6TXE CBJTlRFUkxPQkFSLCBMRU GCQQMKERTBTU8NWZMvJTJ FQlVTIEZOQVxwYXJ9 GROSS DESCRIPTION (test g5kmlAMrSESfmYHLZLIwT code = [id number]) 6hyyhFvUUPtyFQzC1Oxvp bzOQwiES2nZS5rpHcwnCH umSArWA7UGXReLpJoWEDp cGVydzEyMjQwXHBhcGVya GL1HVIzXT4pktcxPMjxRB zhXPEyuiQ4YPGtbULgL9D pGXRjGD5ycqqeNCV3BIfl kP3sckRARamuPr3doYZyf HtcZjFcZmNoYXJzZXQwXG OqoKisLYQeQZg3fG8RYnh zXFP1YYOPXzhwBCTeBN6U q0jqOAHuyYVsITD9AJymq COfBNTzKSTeENv0GLLxKP bsrXXjPO5khJbvUpjriGj vp0YjiRElRPsyUALbNRWz KMxwYZIvZO9NOpSyKBpqC ct9FpSlMKq2LHx2ZK9NOb XwOYTkPoK2Dtz1PhDbVKx 9MAdcGJ5CUTM6YVn0NHh7 KUB6DQSyAZDhOLGeIyZrM GYgQXJpYWwgXFxmbCBcXG 4aoTsmgOPlbvINMcMFwH9 niBJPd2SvLPBUqhSltgsd ReImDJYBRHT6XIYEpQS9v A9rFHCfYI2egAMxSB1EOK FpmEPVYHW1IY2bBLTVSfj toQVbKBPgpVrfQMyarW5s RX3JCOf0ylSkZBIcFiWyO eBjDZp8MDBiImnvnDgxIT rwQBV9fA5wtGAcPOOsDVJ dsrXkNyHyeMNgS7Lgz24b NFJgs8atECEwUcZzptBhD SVdOZImRIsdTSItm3JjOK dQMyomXOMuyFdeVawkG0n seEshG8OlNDwyQIYboa3t mKwqZTQ8MFE7IoHoTM5uR DAyLzAyLzIwMjMpICANCl xwbGFpblxlcGljTmVzdER sXoXmaIhdlH37RPUgrFBa SLT8ON4jCASsrjhaHARiN XKgECR7RSamzD97jHTgEC QvRWZsnDFvgY9EIDDqHHQ 2DXjavP19vDQsMU8XLDJo QIN9HONfvIRyECR9OF9fp Q0KfQ== INTRAPROCEDURAL ADEQUACY k5ifzXGdDQFaeEY4KyIyW (test code = 3370) BWcn4lkv0EncPJpcAEiZB gmiTQuqdCgip47vPC3iC4 8EG9vVCAoEyD2PEAbzfR9 Jqg4MLMsFGGiyGLeY235f 8twv9tflmVrhWD5eHhrZL DzirybCiL3HDgoGSWgitk gBDn8CEmuYCPjjGZ9GWUj kYYmR3YgXCKuVE3ofrj1O ME1QJtnMQTgTkL6MYTweH HtOXWkaGtnNTwlb786QLM 5YvCcBECfiaPypTegtR6g MrZqSNCLQLSSQR8UIWVeF DOGNN8BVYGIA1OTCtdqXH QsYBKKY8CaYQYNTWDOILZ aJCCTFJ6SQMUNHVIQKFXZ NNqOOE6RPMGZWKELYDNIC pSsIL8POXNwXyKrYqHsEh MpXHBhcn0= MICROSCOPIC DESCRIPTION s9fcfYQzXROijPD2GpKqZ (test code = 3371) XDyb0dzx4BafIBduDTyXD mbwCMvceRcah59cNF0hH1 4JR2dCSTfIcX3REUlnqT7 Fga5KCVxNFGevFKiV902j 5jlp5fwqmMlaBL1qSceHJ KmwjyiGyE9ADzgGTRilys sKVy5AGseBOOqbIW7MQTs tMLlK5TjUFWiQL5xyps5Z BM6BOljMHOeQfC0GHPohH LqUSEpdUzsKWbar563UNV 3IbPyQXMzmcHrjDihmY7c MdXiQIRTSLKkb6QsQMXaR HBhclxwYXJkXHBhcn0= Gross assessment was [facility] performed at ([facility], = 4561) Department of Pathology, [address] [place] [address], [place] [address], Technical component was [facility] performed at ([facility], = 9623) Department of Pathology, [address] [place] [address], Professional component [facility] was performed at ([facility], code = 2779) Department of Pathology, [address] [place] [address], [facility] [id number] 13:35:13 Test Item Value Reference Range Interpretation Comments Case Report (test code = Medical Cytology 104) Report Case: [id number] Authorizing Provider: Izabela Galvan Jr., Collected: 07/13/2022 02:10 PM Ordering Location: [facility] Received: 07/13/2022 02:43 PM PERIOPERATIVE SERVICES Pathologist: Lopez Reyna MD Specimen: Lymph Node, Interlobar, Left, Station 11L DIAGNOSIS (test code = [id number] 3220) GFuZzEwMzNcZnRuYmpcdW MxIHtccnRmMVxlcGljOTY uAnecezReVYPezJOcF5Ib wdglRWuiRC2bNE4hbFirt PAiyFXyRXGhFqBqg0bln7 40iPYnc0osJCMSeyedhPe 7cRjmM18to2Q6WvunQ28m xUEtDFS4UMLwIXHlkWQwS NSwNSK2WQZmvJMcH6gbED ObMF2gnqirYZlyBSeyXVS gaCW4KKTjvVIuS9KnRUSq PHguINLajlj9HaGvXu6wc GVyeTcyMFxwYXJkXHBsYW luXGZzMjAgTFlNUEggTk9 ERSwgTEVGVCBJTlRFUkxP AyECSGGMPIPSK91qMETUB CBFQlVTIEZOQSAoRElSRU DHFDUCBFDVZvYJCrJuZ9S LUOTNLH3YNuh7FCQrbeUo WPUmLE2EV9QSRXFSKGJNT eFTSBhSPEFJWGGJAX3LUG rUTtTQY6abWTBtpoZmZMD tIEJFTklHTiBBTlRIUkFD R2MFDbEZFK3VWWUND0LOO HATOJaICK2LTg7mPCOjfd 85FLQ0RmVoi5A1MBR6SHU fJLFqk7dkGOKtjDCwKrMk MzNcZnRuYmpcdWMxXGRlZ hRkl8bnh667lGHcy3cyMV McCiV0vREfHIVdlUIqG43 3RYEeRUbmq8boy1JpQVFf fNPbn9K4NOZFwuzyaDt1o UvoF54pg8Y8YuxlE8igZU GaRABsV0DyOR1fRGToYqn 4XET6ISU9IYNfZHUvB2Cr PS2rOJAqzVBoSQo1w9sdk PusNDTcHZH3t8waFDigvo LsNH3chb8jnWc3o1lrpdT rDYSfNUGqfPNSNQVlJ2Bm gHseJh0wjEo4pRnyZtneF FI8Jwi5WS4zxu47des4hN gtUPTqohocHcJ6FHzxXHZ ohynpWEm2UYsnGWSycFF9 NHEiaTXmU4PuZFEmUF8gq iv7SYL8IKcgHUXnQcX4UT BqtMKbQGXjiJsbMXiil77 1UPC5MvBgCL8oZ9Zzh7Q6 mB0twPOfDDNrgDYpRvDwC HQghn7fiFImDCxju6LeHH M1hoJ0dSHmkDRlYVYlQyI 8AXdsWZ3nkr98CPTxLNF5 uc4ycXPltFppwzWmyCOxB EpgQ9XyXEJpx260YLRzI6 DuJMDfi6N0ciMjSgItGFS acZY0huJ2DIOkVP0jnocq m4roQQjmOIvfDEZureL5i cS0HCBgjLPpV1QhiC6tUP ZtZE6dputwe4gfXGB6NBz aHQYsTLV3CuXnJFZev9Un zmt9EjMtw0FkpOZfBKmhS 78uz391OSQmkpPmB3tluL FpblxwbGFpblxmMFxmczI 0XHFsXGxhbmcxMDMzXGhp O6rcXkLaRDTdmZqfQNqyz 2NoXGYxXGZzMjJcdGFiXH XsBnc3INSfmSCpOLYsOkW rP7rebxxnVvNEIAZqu4au K5ilgYAQiNPoX8HuXSloh gAvGUhdPPjfIhVcNNz7ZB 74WdEjNUEkqm02 COMMENT (test code = k4arcQWhROAvhVZ8EwIbX 335) ZOli8tjd1DgeJLcnAMhPS zftDQrljJxpz73tRY3jS3 0DQ6jADXyAiC3UKTegvL4 Lyt6VANdXUKrxJPpT508h 2hqp1lwjgUuoQD2eHryFL YyyuxtXdY5GYzxJQTtmuo pEWo5ZNiyOYPelIZ9ZPYf bWGxT4LyJPIlOO9jqzj8I IX2VLggSVTxHjF7IRFolQ IyQOUpjPfqGBups807FRN 8VfVwGJVdufTywRjgpS4b DfCxWEKEwXZsn2BoJZhgs wLgPGXgM8c4k6OzdNjbwV 9neSBjYXNlczogQzIzLTA tOwD0ZTXXBeHxPXTkDtEv cGFyfQ== CPT Code(s) (test code = v5poeUKsKGOfbKZ4QqCcC 3357) PWdm8xhw2HitTXgwEUbWD wpiEYfjsXkck65bKC9uN3 8IA6pNHAuUsA3YEWnsqK3 Vxt0NJLqURWwwHJsP543i 6ltd2dihsFubFR5bDcjFA TxgpcmNqM8ACkyMOOnvzv jEJc3SNdlIZAulUM8MQFu ySMhW2WeFDUxJV3uiqi2W WJ5MDxaRQQwErB6SBVneI YbWTQrbVwyDAjwl287EBW 6KcPhJJAvoyKpoNojkZ9m YwMbRLC7ZLR0IgmjMIyoX fQoOWz6DrA7EDAdlh3= CLINICAL DATA (test code l9sytUQsXEZtfNC1DyMhI = 3355) QNwb8ymd3AroRNgyOFfKQ icfDFlnzHtfr54dNM3jX9 3LF3iGJDkSnM5SYUdsfL0 Vau3XZQiGWIumJMlL060n 2qsj3mipoVftYY9gKkqOU CrmzpqNjB2CEqzYITqhgw hJJr0LFjqWOUseIV3UVXc aNBkW3TbUAPyDU2sopc2S YI1VLpdFVXoEyC7HBRwuU EuBCYepExzLKdrd007YYE 9QoAnMVDsdeHutBmcgZ7t RiWrTLM1ZCJ0Qa6sYUG9Q eDyP16uMDG3hADtmVcgFB ZipmgbRVQ8WQCkSXHhIPR iyJ9aEPXUS0XMUU2vTOIx lgI7zR6ciXNdaK6gNQXgN yNoDZ0rT5RiV3hgo0PpBR HZUQJsjZ1pGA5dq9OiwKI co3HarC6fSQEkJCFomP7y NZ8wXFH0LU24OXSDYGj9i MZvRTZruJ0ti9nxg8PaYk PNBHz3zuggfc3zbUheQKJ fSIJxYUufcpUzy8MdiJu2 IZYti1IqsS4hnrv2OLNcF pZrlwNidVmhyFYwAL4dlk 1zbWFsbCBjZWxsIGNhcmN mdj2tZX5pwKXrtL== SPECIMEN SOURCE (test h4aikQIbMTUefOW2CgUqD code = 3377) CEmr4bqw1UqoCPpqFCeMC ifxPUbokHtzr42jIZ5uO9 8DN2lDNVtPbJ1UCQvllE1 Vfo2CFIsRYPtnPCyI787r 6izo0cvqvEneQB9xZpwVH UzgfvhRnT2ZShhIDBqewf kZJi3SIdgJMPkfFC9JXAg wXEeL4CuHGWfPQ5mcmm3U QA7AVfiSTNsCiZ9FCVsoC KjTDQgwCatVOdib834YZO 1AaOmDJGylzBgyIogaK6l TcDpHFQTJM1OOFIJP0UBQ CBJTlRFUkxPQkFSLCBMRU BMCXXKOGWIYU9PYMApOOZ FQlVTIEZOQVxwYXJ9 GROSS DESCRIPTION (test x5tyfVCzOLXlnENRLVHhE code = 7162700713) 9lsqvRvEUXjyKYcG5Oste wsHFkvQY7rHO6mnBgbrVK frAWbDQ2SNHQoHxRkNRCu cGVydzEyMjQwXHBhcGVya FV5NGLxPK9cnsdhTUcnZJ xbBRCxiiM9OMAerZDvE8Q lRSSjLL3phidxBTU7BUxk yP2oriBOHkxbUn0tnBZmi HtcZjFcZmNoYXJzZXQwXG WuyZkyDJEfWEm0hO8ECzp yYIE7TSHYChioZFTxPW2B u5trQJJbpLDuINT8XKzxd TTnHEEfQDZdICd2MQVfDB mrzYMsXS2hdIybOfziyYz ez9ZhcNBmZKwuFLHoIWUm IWxyEHUhGK8MCsIdAGrkB bz6WgNvAFn4YSe2UI0WTj EiRRFaMxK0Yhl7ZzRtXJe 0TVakUZ3EDNW7BLd2XPk0 RWY3YLXdCBOgRVUcLkFeI GYgQXJpYWwgXFxmbCBcXG 4gqOueqHAuugVTDtOFqD9 dkZGVd0DtMMTTiuUuisga RnWeFZBGTTK8KJAMqTF1u M0yEXJiNT7rfFQrUR1OQW YzzIJYYEK5SU6xMNMDMjk kbVAeZYNuiHdhVPgzfZ3f EC9RVOe7kxLuMRLyFnHeY aTrEPh7KGTcZrrfqQakLT rsUVC6kB0kiPErAKXnCLE pcxKoCtRqsHSlU5Tmr83v DLOpv6keHIHjFoCbtiYrM KNxMQCyVWduPGGnf4AxUA bQAdlrVICupDlxJabfH5z wwYivD9BaCMapMPZgyp9k xCheCFC7DWI1NpSyYL2lF DAyLzAyLzIwMjMpICANCl xwbGFpblxlcGljTmVzdER sShUvqBtezE04TRYxgVCu UOC9OJ2rITPazbydGUIdG RWwQEO8ZEmfyP81yDPcCG TrIDMooQDzbQ1DBAWlHNN 4RAlzbC23fWWrSK6PQSSo YYK6XKVxmRXnEKO6ZC0kp Q0KfQ== INTRAPROCEDURAL ADEQUACY o0vxsIGwRUKnoGT5PsQhZ (test code = 3370) AFzw0pxp8SslIWgbRZnDR pfjFGkudBncw71tDF4sS2 1SE6tZTRnWmW5LSXjylR8 Rsn0ZDUuTXPsvTWvU854q 6iep8pxhzGugTJ2gMsbCF WpbzcbRzE1GWizQJBjmxc mJTl8XXupYJXonYK8MAZm bQPuX2NdXHPfIK7tkva6U QH9AZheJIJwPuH8ZTPqhF FlVSSbrJzkFWdve876RFS 8GwGdMHXfpgNxxNauuV2s VtOgIBWHLJYBBJ4LEQNfI QGZYL6TDUXIU3VXGaadQU ZtNUKQO6LuPACUKBZSPNC xWNLOFD5KJIMLNOBZSKOU YZxTWC6RPVVARZRBAZEXG wQkQB4GHKLhRoIwToCoFv MpXHBhcn0= MICROSCOPIC DESCRIPTION w5bxlLXaPEAonTK2QbGwH (test code = 3371) JArh1pdh9VsdSEkfFGcVP blkGWnmvGzpa88gXA2lD3 6IU8tDXNdPaL1HSNzopR9 Xnl3GITsMYPbkUZhD023z 8ywl4ddwaWplWT1oFmpUW IiwszmUxP5BHzoCSIyhsf zBTm9QJgcJMZmqXO2ODRt lVYhX7GoZVBkJS8bexk1W DF5VLulNNWjXtH5LMPgrJ PiQZPuqJsoTKvvv522YES 3LlMmBADvapMbrLbwpA9z QaZkXFGIOFBvb3TaEQVjJ HBhclxwYXJkXHBhcn0= Gross assessment was [facility] performed at ([facility], = 2777) Department of Pathology, [address] [place] [address], Technical component was [facility] performed at ([facility], = 2778) Department of Pathology, [address] [place] [address], Professional component [facility] was performed at ([facility], code = 2779) Department of Pathology, [address] [place] [address], [facility] by [id number] 13:35:13 Test Item Value Reference Range Interpretation Comments Case Report (test code = Medical Cytology 104) Report Case: [id number] Authorizing Provider: Izabela Galvan Jr., Collected: 07/13/2022 02:10 PM Ordering Location: [facility] Received: 07/13/2022 02:43 PM PERIOPERATIVE SERVICES Pathologist: Lopez Reyna MD Specimen: Lymph Node, Interlobar, Left, Station 11L DIAGNOSIS (test code = p3yseJGlIOPpq3cyLCNrw 3220) GFuZzEwMzNcZnRuYmpcdW MxIHtccnRmMVxlcGljOTY fKvxxgeRdQMWsjLXgH8Tg yttmZUdyFP7bBM5rdJicc HYcsKYrPZVeRmNdl1fxe6 51wIDnj5ydITFZuwdhbSz 9pKjiL79kf4L4UgdaB06h lIIlNJP4LIRdAUFjlKGxG NIoLJD9YITdbCRqE5ddOS ZjOE3mjurqNZrhICowXLR oyIA9KDItrACsO0FzTUXi RIueUFSpuao7UeTmMz5dv GVyeTcyMFxwYXJkXHBsYW luXGZzMjAgTFlNUEggTk9 ERSwgTEVGVCBJTlRFUkxP QgNOAFQNJCXMU07rJFPUX CBFQlVTIEZOQSAoRElSRU NISNSUNGKPPlLLHfBkO1K OKYQUCF7LEdg7MXBnmyKn NHBdTE6SV7OVZWPLBNQZL hASNFfKETVNUHRTCY8NSK hUQfOVC9rsKLUvwnMwYWW tIEJFTklHTiBBTlRIUkFD N0TDQrAOMZ9QEMWQF6EXT LEIOMlBUW3BHv9jOBJdrr 46MJX8IsHhp5N1JNG4XMZ eLBEeo1ntNDEzbASmQcEl MzNcZnRuYmpcdWMxXGRlZ zIfz3spl556sSYkr1usHW OjFlZ4uELvOIZafWHiD07 4SYFgOMiyi8jcr9FqVXRb zKPni5J9RJXSrypuaNb6k DowJ44bn0X4CrdmR1tdJQ LqXWFjW6KnAN5yRABjJsf 1BGX1AKW1GWCcUJIrW5Ct RX1wWALcrLFhHQt7n4afm MncUMCcQVZ7x5cuPBbtot XzVD9afb1ooYp9g8euixF sAPHyXIZmoOPGKNXxL1Al aOjiPs5blRb6fJbtRaiaU VF5Zvy6VQ8nqd68rhm2dK ulBSJexsfkRfA6TStyLYJ rgzjiTWh8RKtrDBUkrCF2 KCCcqRKfR3DtPCPaMH5sf rs4XAL2JIbbZJMqJqC6KP OdvPQdCUWaiXhoJUdic66 7CGZ4XqQvAK5eC6Wfo9N6 lW7hsYFiMDMjxKIrGnTyK OSicu5qkVHlODakw2RtBQ J2ndJ1wUCpqTRbOMLrEdF 4AAgpOS8pip72LETdSHU7 jj7ksDMoxDehwoYdpYHdW ItmR9ZlUBKkk562OZQiP5 ZoVRMyk6I8fqWeGtSoAWH snMK8yiF9WDVkKQ0fxxoe c2hfLGoqRAssJTRsqrE7v yU6SGIbhWOwX4XfoW1tRC EpDC0lssvgy6xxGQU3DFv xWTQsNQV6TzDgCVYld8Ne cim1YaSol1UviUQlERmvG 59ud072BOLxsgPkD3xktA FpblxwbGFpblxmMFxmczI 0XHFsXGxhbmcxMDMzXGhp W5gyCzNnCJTcvApwXQdax 2NoXGYxXGZzMjJcdGFiXH SyDzt0TLBepXRcAUVyHhR yM6lkowfzUgRTEEGhx9dv K9oqkIDNvBQtW5PhFRflb hWbVCvoNIriZpCmKCi2CF 09ApReBGJhuv87 COMMENT (test code = w2gjyIVxSTAjmQS1WmKiL 3359) JFsu9jrb2WtdMWgfRWrJW yecQQqsnCucu14fXX8sW9 6MQ9iHFEgAvR3HUNodwL3 Vxh8MAWpZBYclVPjE674d 1xld6ucunVlbMT1wWrxRQ MjjeyuTrD4QAhuVJVfaui cDSp1DNsgOYTlqMA4DRDe uLNeV9FmESEkLX1ebap3W AS4QXeiTNItDnJ7LXJojF ErKBKhtSqnHUpjl522SDT 2ZhOsRRAocvTqyWwyzX0x NuFmVYBMuGGkb6GtVHgci iYgQPFfD7d3d1QihLlqjH 9neSBjYXNlczogQzIzLTA sQxD5PMCNPgEeUPAgFlUu cGFyfQ== CPT Code(s) (test code = u1mhnKFwJLLvwWE2XbCfS 3357) TSpk5lwp5QzrOThxOOaJR tkeYTiwiZxpw54iAF1pW3 4VH0uUCKjUnW2SVZxjsY3 Nhw5XWOmJHOxdVJqM173b 0jrk3rodkVdfMB1cZszZW GfaxbdHiA8POwhOTIyklx dQYj8ZElfMGSauTU6DDTb lENuT1MoYDAeDB2hlhw6M FP3ATajNOOcKtD8INCzjK McVUUqaNweASybx009ZRY 1OvBdTXDkgqBkgAzizI0f SiQtFUM5RJX1FxhxVBhgZ lInQTy7LiM0VGQkiv9= CLINICAL DATA (test code z3tqgDZjFIUsgOS2UlLfH = 3355) MZry1kyh3VnsGUdbNSmLK rnmHQsedEaut44xJN3lI2 5QM2iOQPuAmB2YFKqqyG0 Flr2CQOpHNObfLVtW543m 8toq0aytkWocTA3zHjlZS WhgwalNyS1OPhhAYQgmld aSDg8IEpdOPTmeGL0LFBw bQYwB4EnXTRxNT4cyoq2I UA6BCglLLVhPmV4OJLibW LiATZagIhxLCfzq004DOF 8LcMxEJTgybYybAfydY0k AeEzUUM7BXT2Uu9vMCJ9D jAiB29rOBO2sJIhbXqmJR MaohauWTK2XKZxEXVyTVC myL5pNKXXW7YZHY8lNLAf qqY6lJ9riJAllJ9pWABcO eFvYS9jO6OhX0igl8FdXF BUTFFgjM9sIG9to8EajOC ji6TigX7yISEwRCKfjY2z ES0qGQC0GA74GCWCYXm3k NSuEZTgxT3vi2atl1CsRi CFVZm5brctnq1joLxpERD yJUDwKQzijcFvh9GqaRk9 AOLdb5BunV9bxah6JWXrM zFmvoFzmAllrZAoQA0slq 1zbWFsbCBjZWxsIGNhcmN irc4eLV9wmPUeaL== SPECIMEN SOURCE (test v5tuwXKgAKBnyVR0KgNjL code = 3377) UEqn0xvm1YzeKFneXNbCP lsqRPkgyXezk08kOS5eW0 2UR6fZFJiNfK7NGCeffH5 Kfi8TJEpJSAokIBdZ600q 4iaa9hbwgTjjTP1pWfaWU LlhxxmBrX7XPviYENtede cAOe6WLydEPXvrBR9AXDn cKIiI4NbEIGcLG3qxum0E LU5XEwoWSLrGpT0AOEswF XzMVGcxIurKCckw641DBI 3LvMuKQFvtdArjBgglK1x MzKpWEUVHV5LMRIOL4OKQ CBJTlRFUkxPQkFSLCBMRU DBOEKAOVPEXO8XVFTbYSY FQlVTIEZOQVxwYXJ9 GROSS DESCRIPTION (test j2lggMVwRSQdoDCQPDPkD code = [id number]) 3sdktLiHUSifSRdL6Tsbw vhISjoRT0kBE0poQacrFP ncKPbYR6NGIKjOgIbSVIe cGVydzEyMjQwXHBhcGVya DO3WZOnHI3vyzveKCseRA cgQXGuvaA5JDZxlYKwV1G bOGKvMU0uijgdUCH9JEdq rZ8zoaAASjtaGb0rtGKwd HtcZjFcZmNoYXJzZXQwXG WhgZslXYBuXFa8hT4FUhl gBXW7SEMBVwdhZXMpMQ9O q9dhFMYkkRQwNTC0VZtrv IRjRMPdOPWyCWm1IZGeCG sitEDtSV4aeHpuCpblzOp ba9SynNLwEQpzFRSuXLZw GSiiVHOzMW7IQlUnGCbbV eu9UiVcZYu0PCo4RR6RRr MnUCIjDrO4Bit5HgHcAOj 0JBntHR2OXYJ4PFe3UVd6 XON4AVIwELCmNFVqVoWfI GYgQXJpYWwgXFxmbCBcXG 9tfUxznPHrncRMSjZFkX5 noRNWm4VnTXKEleFofvie JwVsBTZBIGX3DBINzFF8q T3cJERjJN5rnBAzKQ9BNI GusYSEBRW5JM9lPLPDMui hjLDhWHLgaOrrHZbruW3w LV2XTKe5qsWdPACmMqXdY yRhQEl9KSQeEqkicLxyFP ziSSK3nY1fgBPvAWAiETV dxuFtQeBzbYSdU1Rqu12k TSVbf1igMFMyYbIyuxQnT OLsNOSlPUyeSSJmr3ZsIK bNHvniMNQghVxoAcoiC1d lfBmvA6TsUCkvXQKvaz7j nMwuJHY6VWM7OwNlTD7nS DAyLzAyLzIwMjMpICANCl xwbGFpblxlcGljTmVzdER lLeUeoVvnmU39RZZavRZr KML1YT6rSJLptkcxBFVlO AKbKGM3GQgwyZ11kYTpFG SxANOnkKAatQ6MQCViXBJ 9IHlrhD42bAHkGH1WONTz STX0FGWesDBxCQU4LO8eh Q0KfQ== INTRAPROCEDURAL ADEQUACY q7ivjOWfUSYxqTU8FpBwC (test code = 3370) ETfs4vce8RfdMCbsTGnQF sacNYnwbQmfc82hIA9oJ0 9KQ5pHFDcMmA0RWHzstE9 Ndy1BTPdVPQrfRZoT649f 6osm1vaffFnfDE8aPvcGT TfbjhqLaI6XAswRASqfjw nOPm6MUknIEUvkFB1AAQb vYPjI5CyGCLeSF2kjcs5D WI2FOwjFNHyAaB7EWGpxA YfWCGkuFziNYdbm163TAD 3KvEbINDhogKzoGgjzV6j QkXiCXIDAOEAJH6TSAEmU IOSRG7LETAFQ4VXZrpeRE DrEHUYP5PhSOGULSLBZPH rYTCJAE9DDAJVLALFBJME HUxVCP1IFTBZCGRHPPRDS qIeCQ6YSEDnTbRyVsQoYa MpXHBhcn0= MICROSCOPIC DESCRIPTION w2unxBXgXXMrpSI0DtCcC (test code = 3371) BDle0caw0DezTPjvPIwDC bzfOKcspTggn00kDZ8lY9 2IC6tUJDhFeW4VENpsqL2 Fdp9XOJxQMTgjLHsT475c 0vwl7rjzkRxdQZ9mHgrOT SrjfsyLmN3MXllJMOyfqq dUTj3BIhsZDOnpDD7KLKr eHWfT9VcUKGxSG2dwlk7K RO0IRizMMCtTqL8CDCofY UiFAMreThfNPcaj826GLM 2YoSdIOLnaeNjzTonyJ1x BiJrJMRHSUVhw6KxAKSgL HBhclxwYXJkXHBhcn0= Gross assessment was [facility] performed at ([facility], = 2777) Department of Pathology, [address] [place] [id number], Technical component was [facility] performed at ([facility], = 5767) Department of Pathology, [address] [place] [phone], Professional component [facility] was performed at ([facility], code = 2779) Department of Pathology, [address] [place] [phone], [facility] [id number] 13:35:13 Test Item Value Reference Range Interpretation Comments Case Report (test code = Medical Cytology 104) Report Case: [id number] Authorizing Provider: Izabela Galvan Jr., Collected: 07/13/2022 02:10 PM Ordering Location: [facility] Received: 07/13/2022 02:43 PM PERIOPERATIVE SERVICES Pathologist: Lopez Reyna MD Specimen: Lymph Node, Interlobar, Left, Station 11L DIAGNOSIS (test code = [id number] 3220) GFuZzEwMzNcZnRuYmpcdW MxIHtccnRmMVxlcGljOTY bYvgzkiGpEVUxtJTmR4Gg nnbiAZeuJK5xVY6lfAler YZyeUNmCBAxOpVfp3qxh1 16pQNyz2vwFZHVqophgAi 9nNekV67hk2Q4WsqdU90f pSOcNAW3CLKaIOSzwHMmD VYtNNC6DNZuaAExX1itSP VlJK1amfxfAAbmBRliXEB vxTY1ORGrpZBhL9OeEJUy YVnmJTJmyjg1DsFmAn9lh GVyeTcyMFxwYXJkXHBsYW luXGZzMjAgTFlNUEggTk9 ERSwgTEVGVCBJTlRFUkxP AuHARFHGFKZUN32kZTYFR CBFQlVTIEZOQSAoRElSRU DYAXFWSIIBZnPPMzZoC5C TTQHIFH7RAzu0TOFflyVb FFQmMI2DA9IPSJGQACISW uOXZGkPEGSFJYDRBW3WBC wWKlAUB4uwRVCutlLkHWY tIEJFTklHTiBBTlRIUkFD J7EFYzPKHJ5TGHDEK1PLP PRCDBxKBK1YQi2tWYZsnq 67TNJ9TfFpy5E8UNL9ZXZ rFOVsf7loAIBsfHMqRoFa MzNcZnRuYmpcdWMxXGRlZ gEcp3ljt693cVUzp0ytPW BcLqX6iQRdKKVndKLxG41 8VOCqPRzly3gpc0CsIHOy uBGtw4I3DIWFdiiqpBx0y XjuO16ju3S5KewwC7ipBM YgGLTbJ4GvJS1jOWCgYrc 3WKV8FHZ8GXClAPMsI4Ax LM1yGNEcaRMkGQr8h2sir IabWBMjPCC4n0uqRQkrkh ReRF1feq2uvYh7y7raosJ oTCPeHHKtaSIVVYSeD2Rk cWcmMx0evVj4jDlsPqfbR FQ5Yhi0CV3cfm06djj2xY gaRNDwwlcrUjU3TDxjMZX xbvkdBJi2KErrHRXfqDJ0 ZYUctWGlU9ArBBQuIN7lp ez7BYP4OVacZERqIrG4QB AraSHyCIGlwLckCDpoq22 7OHE5OlVvRI9oE4Ofe9Y8 zW4cjCMjRMMypEHsLzDmS DSqam1aiZIcRJnqb9ZfDF I6nrM4tREqlCWiIUAlWhT 3JHwkJT4ugi16TTToKNL4 ft3oaYSvyWzlhgCsfDTcL EliR5GsGWEch195DYCxN5 ErDPAjp9T1gpGkYsWxOII piHK4byW7BKYrPD7cexol k6ycQBmkLQvjOYDhwyY8r aM2DADpzHMjX8HubF6rUK SdQP8xmhtks3dzIRU6OMf lZXMsAYB6AxGbFQRay8Vq cgl1NgMhc3GknJBpEHgrJ 36xj880UPCreaEpK0sslK FpblxwbGFpblxmMFxmczI 0XHFsXGxhbmcxMDMzXGhp I5qeWtOkGYUbuFnoHRjva 2NoXGYxXGZzMjJcdGFiXH RpTdg8KZOuyFFyXSJsQyN yK3gixlqgTsTLGIYct6zd T7bqtMXKdULyQ9SdVPilx eWrFIvuQXueYjTkYCk0AN 28MsQiWGSozx90 COMMENT (test code = k2kblKGoVVVmjDY4LaQfN 3359) MNyy5xzg0NfqISobDDoWD snoFAexpYnhr81hFX9hK5 1AF1dYUUnYwZ6EBQmkjH3 Yvf5TFIiMVJzqXXzE429h 5hqe1kybqHsuEQ6uDcjTN RphfenUiY1CEthQURskvn rKQa7YUniNHCyhNT0MQOx cQKzZ8QwPZFfZB3jiiz7A DX8AGfcGPDdUgB3JDVnxD QjTCEwrClnFNfgs229BKZ 3OgWbDDWwybXoqKvdgF9n MbVzHEWOkOVwm3LhKPaxn mCbYVKxV6f2m1WfkLstnR 9neSBjYXNlczogQzIzLTA jQgP1ZIITUsXeKKBhRoBw cGFyfQ== CPT Code(s) (test code = i6wdbJVxRDLmtUE6VeSdZ 3357) APxf0fox1SurKWfnNWzHG xdxTSjcvKpao77qED3kI5 9XD1sQNGaXoM8BAUfltE8 Ngj2SWKsHHZgkZMpL870q 5nbh2ywywFcyNG8pJufJU JhwoalIdP4RJwtFPFhfji uMUq9EWovZYJllUV8VFUg uSZzU4DjPRPqPN8wefk7H JY5ELwbGSSjDzH9DRRemB RyHGIrtGwpAZvmj085PYO 4EeJjWTCohsNaaQkenI5k MsYqGYK8OFL8GzhnWYrnE tMjWDb5HoM8VKTelm3= CLINICAL DATA (test code x2jleCSgNWAdaWK8EhZnY = 3354) IHbo2qun4VuoNDggNDyMQ yrcWWafaFota24gUZ4oL5 3NR9vQADkAfV3DJWmqpI8 Wdl6BHWdAGRfcWTlK162s 0xjl8cwufTixSR3eZtuLT DzagasLbI5ONktJUQrqkb sNGp1KBryAUJtgUD0SKCr wTKcL3OzCFElFW7lnbt4S BX3GKasHSYaHfN3LIIipX EtREFztUbnKNysr275XHQ 4DiRmECYtypLxhUmhbO3o XlRpQSZ2LAS9Iq7cZTD5T xKsA06vJXF7vUFufFotHX QphtndIFH4BICcRBNoMGX vmB6fLRSCA5MBIX8tFMQd ovZ0vX2lxPQcrI1kZATsX oJzAM2iZ2CoG5lar5OcNX BUZQOamY6gOQ9sb5IiuSD jj3NchY0tHQQuVDWjdZ0s AE8xXQE9NV02SLHITFu1y PMtRBSxyR6to1ygq3RnJg LPDDh1vnfeja2bfOkpPSY tMHNeQMajwxUky2KgpTs2 QJEvd3CxoR4gmwj2AYKxL vUqxxQutZferQZwNF3xux 1zbWFsbCBjZWxsIGNhcmN lbj4mMX9dpCHttD== SPECIMEN SOURCE (test b4pjkTHkPWCqqES3LbUkQ code = 3377) TLxd6wsf6LbhYWnwVJzTZ cybJOqllQoid23hBB5aR5 7HS9jARJbVbZ1LBQzjwR2 Hck5DQIiSMDzwOSdU540s 5syh7esvwAenIN7kBwfWC KedjpyWdQ8LMjhOMQkmwk hJBi0WYaqXAPadEB5JRWe yGFnA2AkPGUcWD1diqo7K BG8NZdkJWRsAxY4BUXrwJ IsGWJvmMpxSAroz921XKK 5CdFmUAVzriSrwYgwbQ5j XbRjCHNYWP4QSQFNQ4NFF CBJTlRFUkxPQkFSLCBMRU FGWFIEQSSAQD0AFZAvZSC FQlVTIEZOQVxwYXJ9 GROSS DESCRIPTION (test f2fjxPMyWBWgwAMDYJSdG code = [id number]) 2pvkbXyGBTpzJUkS9Xjfk auOCcbOO6qSH2kpEwhvLV ujUEeHI0JVHMpIxErTJYb cGVydzEyMjQwXHBhcGVya GB3EZWqYZ7fcrpmIOqvKK jcNAIrvnX8FUJnpMWpA5F aYEPeYN6ezvspHNA1RAgn pB1mhcDETqgkLg8xcZNaz HtcZjFcZmNoYXJzZXQwXG UaxIxfAZIjRBr1zV7XQuc xYZV5ISCGMjibYZWkZM3G x5bzOOOzlLJrHUL2FQord JKnIPQfTHXgPPm0BXEzOW tlzXYvSG9woOdiElousHl ip5AvpQEdWFexZSTyQHFk JLtpCZLpAN3ULrFlUEfcU mh9KaVoGMr6NUi9RV1ZVe VuDVCpVzE7Sal5WiKhFVn 6GUiyMO2JGAO5WPi3WBl1 WFD1LLHeCBLfIMRaHtWzV GYgQXJpYWwgXFxmbCBcXG 7dpJvfvGLgddFILfSWpB5 ecAARu0TqOUCUfwCjgbnq WoIhTAHOFQD9BTBMqKA6n B3mRTHaVS8ilGFkAO6JEL HmpACOQRH5DY5fFZTBNal deJSvIYQkxCmhZKgtiB9k IH0WUJf4wsPkHBUoRhVaY bYwMDg8UQSpWqdboYfoHJ zqLUT0mC9zxQJoRBKhFJZ rvrSdSrQhdMDpZ7Gxp90i HHKwd3tgAHPwYoLxqcJcD RKiTFHzMBpwPKEmd0MoLX yDQhkjTSTwkZiyPknxU6t xoOnsY5MqZOwwGRVzfw8b lXpyEIT6MMJ2VaOeOJ4aT DAyLzAyLzIwMjMpICANCl xwbGFpblxlcGljTmVzdER uBaHqyOgdnM94IKLjhHCj TQD4DA8qZULupagvGDLdL NIcKJM3OPcusV07cCXrRG TdMTOtrCAgzP6BKKZgRWD 5HRfelW18oTUqJG0XZANy SBR1DORwtDBhOWH6KL2td Q0KfQ== INTRAPROCEDURAL ADEQUACY w1sycCPiGOCifNJ4HdMdZ (test code = 3370) QVvz5vvd9BdoQPbyCZiUQ sgqSAudgXzxc34vWZ5kD9 8PJ0eEMIzDyM0IROvywI4 Lmg1EMBtRVRjuODlP679t 4gsk9pnxjZapIE8aEqpON IewmpnBqZ9NKxiCWUvywy hSBh2ZLcoCTQzxSZ8TLFy lUKaS2VhAACpEX5fmex5A GJ2ZWtfJJJtIoR2DMOxpI KdORGouHhsIHjkb593WOG 0TeDlFDGydeZzrBaqaI6n ZaNlVQBLMWMNOQ8GJDVsZ SIQDH3TDGYTB2UHVoetOL BtBEOXE4VwBHDOGZYNDCK dAZYEEV6RXBFXWIEFMYPQ OWmHQU6DBALHALZPLMOAV kKjFB2HTTRpYiArSdTuHg MpXHBhcn0= MICROSCOPIC DESCRIPTION h7brkHZaQJGfvRZ7GjXoV (test code = 3371) GSom1jmk4SukECmoSRjLO nihJPxbpQkso54pCI5qK4 9OT4pZLAkIwO5RXXwoyX5 Odb4HOLuEXFuvYHsR080h 6zoe7wkvfFaqGK2eAqgBM RurrprSsE0HIlbGQGqbdb sTHt2QLtmOATnhFT8FXTe kRJjG2IsPWCrEE2zlwz2S LE4SVruGUHeXjA5GECspI InMDTkkPqmUJwrb586OWT 2OyWnFYSgrsIjtBbhbL3q YsMhPNPYAZKuj4GeSJVcQ HBhclxwYXJkXHBhcn0= Gross assessment was [facility] performed at (test code [facility], = 2777) Department of Pathology, [address] [place] [phone], Technical component was [facility] performed at (test code [facility], = 2778) Department of Pathology, [address] [place] [address] [phone], Professional component [facility] was performed at ([facility], code = 2779) Department of Pathology, [address] [place] [id number], [facility] [id number] 13:35:13 Test Item Value Reference Range Interpretation Comments Case Report (test code = Medical Cytology 104) Report Case: [id number] Authorizing Provider: Izabela Galvan Jr., Collected: 07/13/2022 02:10 PM Ordering Location: [facility] Received: 07/13/2022 02:43 PM PERIOPERATIVE SERVICES Pathologist: Lopez Reyna MD Specimen: Lymph Node, Interlobar, Left, Station 11L DIAGNOSIS (test code = b5fjzNXmEGXdv7ghDSVbe 3220) GFuZzEwMzNcZnRuYmpcdW MxIHtccnRmMVxlcGljOTY nVafrtzLeQKHwaHQbB1Xz liaaRAghIS0eAR9xgDflh LFxhYQyIWKpGdCsi0nch5 63mGHfa7ydTDYUvmqdbIr 5kRqzL34pd6L4XgcpG52w lHBrIMY1GFZmMYNcuZHmT THcNAK5SVKzwMMcQ1hzIA FxIR9gprxtZIybHDvjNGL ggQI3WXGrsNMhN0HnSFOg MWejDCIxwxz3HmClBv7zq GVyeTcyMFxwYXJkXHBsYW luXGZzMjAgTFlNUEggTk9 ERSwgTEVGVCBJTlRFUkxP JeLCNHTHENDTQ76pSIALX CBFQlVTIEZOQSAoRElSRU MWXMSKYDBQAvCUPeJzL1R NVSUVTX0YErv5RINbdjGg JVCmPG2PX3XPUXVTYWSRY aOBROpZWYGKLOPUHR3EPZ uNJfYBI0biQCQoorCuPBG tIEJFTklHTiBBTlRIUkFD G1GCEcUMLZ2CGHUOS5VTI GFPQDmRYF0ZOf9oEVMobj 06HKH2WoVcj7D2CPD6TWY eITTwf6unBXXdeOKrYyRm MzNcZnRuYmpcdWMxXGRlZ pWzd6ldv759fCOef4rqPM JxBbX7sGFgHNTmrIXtM82 2OMRsARxyp4oyu8UyPELg nHGuc2S6QKPXnewtjAn3h GzaW90lr3N1BivhU7veRQ FrUZVhH6JuUE2hNBIjFcc 6RRS3YWH5JNZeURJfB5Gi QY1qXIXanTZnYKa7s3idz BuvTMCsHPG4g0lqDRgpve DnLK6kfo7wqXj7v9xzunQ uNMZbULXabLQVKPUcL6Sj zRnzXh7luMd5jUhbJfjsJ PO9Ndn0LS2wxg38xbw5wF jdFORnsanzUkX1TWydQGN nmqysTGo9MCgrZXImxCC3 MQQneADlZ4KfJAUaSH7px yi6XMX6NPwaHMJkTjF7KO KtyAGcCNCfbJlqSQszf12 5HNB0IeOdPE9cG2Shz9P6 cT1njGLgNCNfmLVvYlUrH IDiij8xiAYkGHhro1KdYJ Z5egQ9eAHsmFHxIVSpJnU 1GYefBC9lsk76MECgFUN4 vp3otRWkrPzbqhBfxEGqA SocU6QfBTFkg254TIVvY2 ArMRZno2P6pnUgMgSsNCZ snQG6ghW7OFQuEQ5odxwr r3gfVOmtPYhoCJGpbnZ5w sG2VGIxiFLgB5VbwA4eZL FnEL2rsxhjf5kkIQP7QGo kKEGyJZH8WcCtBPPzg0Fu pjl4XwMot1VwqALrSSerP 21jz232NEXqkvTzS0knsS FpblxwbGFpblxmMFxmczI 0XHFsXGxhbmcxMDMzXGhp Q7uiCoYdOBZsrPdeVYrbt 2NoXGYxXGZzMjJcdGFiXH XjDny4VAHlaCWgXJBeCwY sU7irncrgWhXZTPOmy4sp R4gobPIWsMMtP2UlPQfch cJjXGklDJgrJsOfYZu8DT 88DbIyLMYhpn22 COMMENT (test code = d5gmvKHzKDDyoAC0AtHdU 335) DNva8chg5UvpDNdcYJeSO ydjBWuzqFncs95mMF9jM1 4VO9cQJQuHmP8TCLvgwW3 Pww6XWGvKKApmGGuD036b 3efw7tgvcEwiEI3hLauSP LbsdklZbP3DDrvXKAjpts cCVz4OAjuOSXnsCN1LQTe dUWhX0HcTSQlAU0thca6D PD8NFcvWUKqTcG6VCFuhL SrRVRtcVfsVZlnu926OID 4HdGyCZElfcYezGzshJ6y AqVoJQVRkSPvg6ScLMvxf bVfQDStW2z2z1AfaMumwS 9neSBjYXNlczogQzIzLTA fVfO5VWAIUoZnMKLrRhLv cGFyfQ== CPT Code(s) (test code = s6pppJUmJNQdpFZ7FzCvP 3357) LAwa2mif6NffGWwdOSsDB iztAVjqwDjgm18rHR5xG0 5AI1uPDBuCdT5JBMekdI0 Mqi8UJRqRINgeBWzQ589t 2gts0zdyyUyhTM6bXbsAN OocittCnE7XPneHWWdsgf tRLx4QKywQCOthBH4QLGa cLCdX4IdWOOrVT4uiom6W KR1KYaqARApAlP3DOHtnU LnPQTybQhpAZzqw184SRY 2LnSvUDIamcZlxViupP0q HkVuBDC5VSC4DvqzPZoeO wDoZZz1WkR3NWYhdv9= CLINICAL DATA (test code b8twkPQpUEOxbTT5KxLdN = 3355) OFln4ghm2FupPMnoHQyNO gefUPkbnRoph61aIV6nY1 9QC5aOZTyVhQ6BESxdmY6 Fna6MDJuANHttRKzM650j 6yas3fnhiZpvZE5hMtzOL DilajuSyV0FRcyWIJhzkh jOIv6TJmwKLCgnQT0CLOf cEVsB2QlKPCsOP9xhch4Y LE3YToyECDbEvU3BZEjvJ OoMKAttMevGZoaa089WWF 3PeYzSBPvvcZjwLphpO2u CeRvDAH4LOS0Yg3nNGV5H uVyK33mMSG0lSTlfKozWZ KhggafBKV7COCbGEKsGYY zgK2aQMIUM8XQRA3dDJOd vvQ8tB4boPGagM8gGHQkJ cVvHA9yM7KaW3mmi9XxWJ OXDYQtzC8lFS0pr0ZgzVO gd0IiyV3fNIWfWPUscT7f OR5aFDR9NE20YXOKANf7w YUdKAOrqC7qs1fgt7GnBo DCDMh2lngaji2vbZokHDZ sTGEvZGxzdhOys8XrgJw5 TPYyd3XhlR5mitb0ZPUbF oByeiDnqUtxvVBlZH8hrn 1zbWFsbCBjZWxsIGNhcmN tez9gFQ4vnUYlfK== SPECIMEN SOURCE (test x7cphKCmUCFmsLM1UyMpA code = 3377) BVkz8bib4BzxHYzmGKmIJ tdcGSgeiLwht18oMP6zL9 0RH0jWPKiRfI3YQBlebK5 Qix3EHCuTYOorVDzK068w 5dzo2psdwKbhBB2zAbySU OeqrlzUdF0LHosTFDyztm xNRg8ZFxkOWOicFW1NXFq zOXxO7JvUZSiIR9xnaz1V RK3CRmnKVBdXvG5IZTplK CzOPRfxZvdGZamj364AAM 6LxEuLBAdgjYznCvgiU2l WbSbHRLFIL4EESZNV4CAE CBJTlRFUkxPQkFSLCBMRU CWSPJVBNVSKP6AVIHiHPV FQlVTIEZOQVxwYXJ9 GROSS DESCRIPTION (test w6okaGItJYErtRMLTRUoC code = [id number]) 2oauhHqUXOzpEMgQ5Anmj bcOUfjHV2oLY7meFnhpYG imHFaHT9XTDWoRgJhSNHc cGVydzEyMjQwXHBhcGVya OR1DIOfOF8ouxrdQIywYK kkANPxdpU0EYRnoFIkZ6D pVYXnHL0tbmpjFXB6XKtk yY0qzeBESnpcMt0iqESee HtcZjFcZmNoYXJzZXQwXG HuvBjhQOLbXMt6eN8UTjz wNXT3PYYLKdwfORPsUA2D l4gfHEXyhVRsNKT1LPrhc SVjJXGjKZMeQHn7JGMjNK bylZOgGL4fwUkmHgicmRk fh0SumTIkNVsiGJSxEERs GCyuKKGeSN0GLxOqZYwlY ke1YnJlYWg2GBg8BO5VLk QsPDIoAhP5Lvc8ViWvMQq 9ZTaaIA8TFVE3EAy0LFt5 HUD4HWUrWHLeNXNlFxZiR GYgQXJpYWwgXFxmbCBcXG 2lbYjcfVYshnDMYxIVsZ3 wdXDEk5TeOCCOvrZljahp BsWjKICJYVC1HHPPuPZ8j V7fFNIkLO4ekSDnWH7JVH GgvZUSPYV1IY3bILHWBdh aiMPkSHZpuYkoMQnndE4j PY0HOSe1pkUzPYAtCoYkH aXlRSv5MEBnLbinoVfyZF bpWMT8rX6qeBOtJNDoRUI lxpUeUvTgkKXxO4Jpf06e NJUos6huXSBmPwUvqjWlU INbIBJtDMftHUPdj2IyKD xHAeirTJYjiLcfBdpkR6s mzWmjV5CwCJjbVXUxzi7w dOexVQX6EHP0SxOwLR4hW DAyLzAyLzIwMjMpICANCl xwbGFpblxlcGljTmVzdER dAtAjrWlqkL14IEIyeEKi KAM9YC3nTZYbiboaUZNfV FCuPVT5EKyvmF53hGPbDO UoZZKfvBZxyR0ENUGtQBX 8EBcvvN05mBBkZB8RTHId ITE5VBOiaEAcDTA2VS5uw Q0KfQ== INTRAPROCEDURAL ADEQUACY x4nbnJZxTXHcuQJ0KgQgJ (test code = 3370) TPxq8vas7XvpWCxvSEnOA lllVBortUvar92sZW3fQ0 4PU7nLFTyDlS7RZJkenH6 Oku4ZFAqNDWgbIYnD513o 1fdf3cvjoZuvWB9wGwwAI QqtrkbVsE4BTpoLVQpqcx zDUn9QTesPGZkdSA9DIEu qIPyG5UqJWYoSA7aifs9Q DZ2SFonAZOeOiB0PHHkaV IbNHJweCsuFVzzx974JWE 8TsExXZDaclVhvJqauR3w HxTuWUPMFQJRUW2ZZRUzD JDSFW5WAWGKB5UGSjogNM WvTKLSI0DhDXJAXKZURYM jONFBZL7GXPDRTWGMPRGA CUhXHV0IYUFBXDZXNVSNG kKgXM5VAKQlGdLiOpScFo MpXHBhcn0= MICROSCOPIC DESCRIPTION b4emhGXgLPAnjMK9QsHlX (test code = 3371) VScv8pdg9YhsQWafKCpNL iquMScbsLhou67yHH5zU4 0TH7pMZSyPlE3JDChtnA4 Unq6PMWxWXGzrXTcK995w 8tky1ydutJlwXZ7zQmsSO RavzfrCpK3APucNZSdznc xWEf5ZHycHMJbjGS1SYDp iRQwW1KkQAEhRI6hnle6O FJ4WGypNLDpFqT9WYMhaB EoJSRbwQzsUTcdg255TWS 9QwBoIPAkhwGzyQhzfD3k UmZuJIYJVKBgu9VwUDSaX HBhclxwYXJkXHBhcn0= Gross assessment was [facility] performed at ([facility], = 2777) Department of Pathology, [address] [place] [id number], Technical component was [facility] performed at ([facility], = 2778) Department of Pathology, [address] [place] [address], Professional component [facility] was performed at ([facility], code = 2779) Department of Pathology, [address] [place] [phone], [facility] [id number] 13:35:13 Test Item Value Reference Range Interpretation Comments Case Report (test code = Medical Cytology 104) Report Case: [id number] Authorizing Provider: Izabela Galvan Jr., Collected: 07/13/2022 02:10 PM Ordering Location: [facility] Received: 07/13/2022 02:43 PM PERIOPERATIVE SERVICES Pathologist: Lopez Reyna MD Specimen: Lymph Node, Interlobar, Left, Station 11L DIAGNOSIS (test code = w9swuBAnGUJgm6ecFYTpe 3220) GFuZzEwMzNcZnRuYmpcdW MxIHtccnRmMVxlcGljOTY lIquynxNwXMThcWVnE6Qz vyntRBvkSV5cYX4qgOwoi UEovXRrLIMaZxJjd2hqi2 54wIAbu7dfAPNFtenlxLi 3pPlmN77oa2D6UoxhI71s mKAeJMM7AZKlVVOaxKKyY ANtBFV5TYQgqWVlY5zaOI LxMK8hyiefEXvyAZmoTYE olMU5YSRbpREvQ9XdOZRt VKmvPXPooxq9PgYpUm1rj GVyeTcyMFxwYXJkXHBsYW luXGZzMjAgTFlNUEggTk9 ERSwgTEVGVCBJTlRFUkxP WzHFODGHSREPP01gIEBXD CBFQlVTIEZOQSAoRElSRU BTQIPOAAFKAuBWBsVsJ1L VOSTZET1FOjj7LNTefrKt HNSqMY1SL2ZJTEYKKAONL oEHEVuCPFZKMRVIHI4COZ eWCkHUR8wuHWVxomNwANV tIEJFTklHTiBBTlRIUkFD J8MBBeJFBZ7JXLIMW6HTG XFXGAsRLU7XHr9iUGNxtc 24KNR0GiPgq7B0QSA5OBU iGFHyz0dvVHQalBUkEcRt MzNcZnRuYmpcdWMxXGRlZ bOyj5sob992gTZep0eoRN WmCwS2nEYiTEYgzEThU80 8UGQcZFphb3icc3DyDRNa tKBnm5Y9QJXTwahggPj6n HbvZ65gc1R1GscoF2vqEH WsSPPvO7RsMZ6zUXUnUpv 0WYB9TUE3IUMnMDOvG2Yk VE7rHVOazUQpBIq7p8jam RspFXKqKGB4l1teAOjqnf IdCM7xom0trTp7y4tngvD xKHUyXTFpdYDEXAPlI7Du eSrkKc7kyLk6qGokSlheT BC9Irf2PB8uiu62yiv3sI lzQTZwvsmnGmU2YTbiHAW imdyhUWk2YZwhDFZweWG7 ATFeaKNhP6EzKJYgUA8il ov3ORB8QXvmJEBaSeC5PM OyfESuYLQhiXtcJQfqt80 1VOG0GqKdRR9lK6Ciq9O6 lV1dnPYrLLJyrYSrJuVcF LNliq3ivTRvXWxjc4HwKY I2yoY2qNExlUFmHIWgNaK 5TYtwOG2isz87KMGaARD9 sx2vbVBmiJuhrsFeeDFbQ NfpR8HrXBCsr403NOQaA6 MwGENdr4K8asQzJiTwAVH hrFG2taU6RCIiTY1kltvy h9siQRyuGFbeQOWjusT6g jV3RJOedDHlA3NhzZ6eGO WoIY8gnzoot3jdPBF1WKw lQEQtPOV9BeZvMDOvp5Vh nsg1EkKls3RmpHWaWZhbJ 57hm017DYGpbkAmP8mbsD FpblxwbGFpblxmMFxmczI 0XHFsXGxhbmcxMDMzXGhp A0rcMdXbNVMxnEobDUgbx 2NoXGYxXGZzMjJcdGFiXH YnGam7ICFexKWvAODkOxK cQ8ewfwocIhUWXDGbs3ni F7etzPQZwIEnU7VhFOoyp tPtCClkRYnzKsKyVTf6FI 59NuYpCTElec69 COMMENT (test code = t6konAXeYQZizJR4KaUdZ 3359) FLwh3lec2PocVDcaEQfLB zjnKIsofEncx79yLQ8qJ8 0LW7jLGAeWcM6IANsrbU9 Flr6LAKfFUEkgCEgG080r 5yon7eimtFfyFS2fQcuRQ IzogttMpN6GJyyDJVftkn hDJj0WYojLREgvUN5WYYs gAQdK8DrQDRtEU1xtjz4R GV9DOhaRJTlCrS1PPPneJ YcQLLjaEboTThmx167HBM 4XfYyJVCzjqQzfVzykK5s BhPzHJJWbFEya4PsZOakc sSgDZCkY4v0b5QipSmlqA 9neSBjYXNlczogQzIzLTA nLvR9VZJZBvYkERAsFxYx cGFyfQ== CPT Code(s) (test code = s6iumFQoBNUttSK2PrPfY 3357) WTps9mkk1TaiSYzlPWwVD cybNAdlwPjbd47hEE5nD1 7FY8fPICoIeB5CIXucxD3 Gjv6DWRzXRNxiDIdP278j 3pkw0aefzMfeBB7jTrgTO TubzxnSgG0SRadJIHzera pZPs6CXbgJVXhfAD8DLTa jIBzR4EjUWIlAV1gcua9U XW2RIupKBNqXwO0IJBagG GzXGOccLrtPAsbp678UZC 6WvCyKXOgwxGwfXoctV5l YyFxQSJ0UKD1RzorCBvrD sZvZGa3SqW4EWGxtg2= CLINICAL DATA (test code a6pfhOUoXEQikAV7WmTtA = 3355) LTnt8ozo2YkkJNxnOBsVP zopSRiwsAarn81uQP5iD5 2HK4aNMGxQuI7ICRknqW7 Cpc2JEDrAESjwMSpZ016b 0uuk4upwmHbyBT5mImlVH YgldogGrX0KYzyDQObfpz zAPj3UVmaZPOsvYN9JBEv mFDxH0TdIYCgHI3ovng2F YT9RKzkZDGgErZ5WXQjvI SjRGYobLylAVdcn801PHC 8GxBgBWUqkrKgdYxewF6k TzOuFPP5IOJ4Md8tJFB6N vIvL84eGID1iGRbfMgdSK BpxusxWFL5YPCmFWIxISV gmN4oVQBOA1BYZV0ySPTt ddW7tA2atZTyqQ5kSBDnW nBxYS2pD6GkL7djd2OaMT AIGRClnR3nBY1ij6AsrAU wa3HokN4wXADcPTQgkI9f ZI4nGDD6FM22UVUYPWq7k EBnVBRdmD7ca5nkp0VwKy VIXPm4ykxwsn9clMxzAJN yNYSeOIuycmXwb2EgpAb5 VRDke5HfgU1bato6KEUgJ lKgizNpcUwqbWRaKF1ppz 1zbWFsbCBjZWxsIGNhcmN tdx7xZK6blBCtpH== SPECIMEN SOURCE (test o2hruRAsBPHhvSX9IwGaU code = 3377) KEzg4eqz3KgaCYovAHrGO qhjXTpbgNygh16dXK9yK9 3ZD4aSUEqOhT2NWXfhyZ9 Pdu2HKOhXXRpsVStQ055a 5hdc9bgtwVerEH8lChsEJ IrycxtZyK7EEapBFHbhxm rCOx5HZbzWTUdpWG2VODy vXZsK0PgHWOsBZ4aajq5H RC8CXojBIBsYlA2CWNbmL UsJCJfnPogTOsbh396IOL 0WpDvVPYlceEghMqopH6z ZeBdGGWUSX4YGYFIY5BIY CBJTlRFUkxPQkFSLCBMRU QDDIBYKBOSJC2JTORaYBJ FQlVTIEZOQVxwYXJ9 GROSS DESCRIPTION (test p0oflDTlUOThiXBTSXVsG code = [id number]) 7omtvIvKHEzeXFwJ6Szts zjUXdzOV0nUK0auFoxpDR apPGtET3DCCTuNzCwKHZd cGVydzEyMjQwXHBhcGVya IJ8MIMmHL5omobjADpdDE dtALCfguG8EJNfcAEjS2N gMPCqSA3qxgelLKD5WKel nL2votYWMjpcSv1zdPAdj HtcZjFcZmNoYXJzZXQwXG TzdQcoAMMkITu4aY7THkm jOCV3MFLERtknXKJaIP1E b3ofIDApfGEwUPG5GZluy SKvGYXfXXNvLSy5NFEzZR eldUXkGE8hsFauEkakfIm bg4GdkCJlFCsxLCLcCMNb FSoxEXEdJL6SQhRuMFukU tp6AkXaWGj1HDq5LF8SAy MtUXIpGhS5Mza8YwJgTZp 1SWlmJX9ZJYX5OOt5OLk6 THY2BVAnWVQlALCtGoLrV GYgQXJpYWwgXFxmbCBcXG 0igWqyoNXtitFGDrUMvH8 apYGWj7ZvQXWNlhKfnvcj GsNwCYXMQHS7OXRPiNX1l L2aVTZhPG7diFNsSC8VYL GwrTISHZW8YE5wPZOSTrt zdBQbXJXeqXnmNEzsvI2x ZZ9AMPu2qwDmKFIgJuIqJ kKrPUs0NAUzMlkgsGptMQ ixNGS2yW7krDIdBGJrMTX rzqJkJsClqSDuG8Bnj34o TRNke7lvSYWmVsEbpcRlB JKlGORqWLnnAMEjg7UwBS vXSqikWYUgnVrjWgnoA2h czLlfL9PmKRasTNAngw1x sMggJVA1XGY1XgPoCO4kL DAyLzAyLzIwMjMpICANCl xwbGFpblxlcGljTmVzdER wHpFgvHowsE51LJLdsMXt NDT5MU1eCHMwbudwZDDpF MMyBSY5PWpxeL42xPZlUR RsESRdkLPthU3SCCVeTRA 5ZBqyrP95wWNtVT9TIPVx LGI1NVMyjFSoICE5DZ4ii Q0KfQ== INTRAPROCEDURAL ADEQUACY i0abtBSbYKJwvXO5NvBcO (test code = 3370) IBct0lfb8NnyQQrqLWdYZ ckqSTqsxTchp10eBT1vE8 8JG8qZBCuEwY6FUKtnvQ2 Xga4EVImPEUhuCIvK465o 0sqc6hjjrIxrWX0cByzBE YagewhCvA9KLcdPBGqexu gMZh9PMksFAGicIN6FPDe jQIxR9OcRGDhZB5phgq0H RM8WNhjPONrMdX2DUMahI CjHIXbmPrjDEjkd905TQQ 0VxNiBVAsniAtbKcxxA8c RuUrIHAVWUFLOM8NCTBvJ VAJGV7OCDTPK3WILlouAT PzPAKEW1CvQXHBLUCLKCH oAYTWGG4NVUOOVZMCHPTP NGmZNM0RBEWJHYXMLDMVR lBmZU9MXMFhCwXuSjSyMn MpXHBhcn0= MICROSCOPIC DESCRIPTION s1bfuBGeJMCdxQJ4FuOxL (test code = 3371) BBiv5zda2ZmhMOujCRnXW kvjRQhusBpmi10vXD6mI6 7RX2qTOYuTwD5YVDyyxC0 Wov1CKYqGHZppBRtQ674a 6qrd0ojpiSamQU3oAtwDV EcseidHhO5EPzeMRDxbdp oMRc9WTdhMAQleFG5MDSz sQVcM3WoJCWeBA3tgwm2W HS8NQbmPWOlCxS8QEYduT YhUAOpuClpLNham904FTU 8RqTnMGEgevGlmJieaL1s IfKhFLVAMIQrh3JzBLXcF HBhclxwYXJkXHBhcn0= Gross assessment was [facility] performed at ([facility], = 2777) Department of Pathology, [address] [place] [address], Technical component was [facility] performed at ([facility], = 2778) Department of Pathology, [address] [place] [id number], Professional component [facility] was performed at ([facility], code = 2779) Department of Pathology, [address] [place] [address], [facility] [id number] 13:35:13 Test Item Value Reference Range Interpretation Comments Case Report (test code = Medical Cytology 104) Report Case: [id number] Authorizing Provider: Izabela Galvan Jr., Collected: 07/13/2022 02:10 PM Ordering Location: [facility] Received: 07/13/2022 02:43 PM PERIOPERATIVE SERVICES Pathologist: Lopez Reyna MD Specimen: Lymph Node, Interlobar, Left, Station 11L DIAGNOSIS (test code = j3dtqKGeORRqe8pjIIDkr 3220) GFuZzEwMzNcZnRuYmpcdW MxIHtccnRmMVxlcGljOTY pBzjpgiFsCAQskUGvO2Xy osgxDVhtNJ2nXE9tlItqy QKyuLGbDAXnFhWwh1obi6 19cXWcq6nbVXYPqlfwaMj 5pUcbZ84dl8P9FlbwM63x oHXgWSF9DSKdHPDjhUAjS FGlDJY5ELFtkTGoH6ezEP FuSL5uydmjBJujWTpxZMO yuUA8BEJiiRFgK4NrATPu SPxlWXCaymd5JyUtAz7ee GVyeTcyMFxwYXJkXHBsYW luXGZzMjAgTFlNUEggTk9 ERSwgTEVGVCBJTlRFUkxP ViPDAZVTBVASC26zFCVMM CBFQlVTIEZOQSAoRElSRU DNRUOWFLCZVoEIJkUrE2W ZAJZFGK5PJun5MUKncvEb XJPdNN8OY8HZAKCIBSSAY jUZCLuPBDWESAZUGZ4IYT nCHqVKD8qoJHAficEyVJL tIEJFTklHTiBBTlRIUkFD A0REKxONIR5NZEJJA6ECE WJAOCxIXJ0TEj5aIQVkom 59UBF6LwXzt9I1XKK7RWN vFXMxp6fdNUUihVFyKxQi MzNcZnRuYmpcdWMxXGRlZ mYot0wow413bPNwn1vcQR PhZaB5dGWaALZxgXBsT22 9LCAfUGlol5xkm9DiGSXy wRBjl1P0QTLRgzstaAd9p EqvA85pk9L8ExghJ5nvIX BsDHExC9DvKZ4eHPEnZtn 8FXI3UAX5YILgYMTzB5Kr YY9yWTMhqBAlPCe7s1nvw TucFMMjLTF8d4pqCMtnlu YsMT3baq8quLz4p5jurxH sCFVpICDqhLOTTJJxN1Kf jFpeZi1ngIz2sEdjTjogR SM1Jvk8LW4jia91knr3oI xrVBSnlixfXaU6LPycPFW jvzqpNGw5HHakNZWsnWK6 QBMsyDOgI7QlULUmSD2rw mf2AEN5FQwbGDQpIpD4QE ZqzZIfFIZcdFfmTZyhn88 8PYJ9PrNtCY1pT9Ifw2D1 sS5zsYLpVUAidZHhBhWqT ZXqgg4weIGyBOejg2XfGI O3itJ9rSOdcVUfIUGfOjJ 9CDjsBV5ndi69SCXnWTI0 do2mqYZiaGhcruQfcQDsO GmjP9HsNXYch598ZPAwG5 TjVBVrd5U9waBcHlHrOWH alRD2ljA7DGIpND5siaqn h2fgGWijPWahQFNhqcR2h fZ4OWTdfXRjK4GjaN5hVB WjMS3uhryqc6aiRRA3IDs vNZLqSED2EtEcMEXfd5Dg wes3QoAxj7OrtENpTPzuZ 18ab608MBYwsbVnD3ughK FpblxwbGFpblxmMFxmczI 0XHFsXGxhbmcxMDMzXGhp C7qxUaMkPCXtbGaoPEufs 2NoXGYxXGZzMjJcdGFiXH SzIyv0DRKjhKKlXNKfMkM dW4gvxkcfUyZOAVZgs1mq V7lmtLBBuUQcM5TxASytx wIuXAbmMQjpVgUyRRz1ZF 53CdOvFDMisc50 COMMENT (test code = m7lrnZZnHRHlqAT6OySeZ 3359) JOgf6gbu5HipOYlfPClKB pypABusnJdju13tOX6oS7 8WQ1sCYOmAdM3NKQsuoP4 Unm1AZHmKIIboTTdH782i 1ssf8zuskBsiSS6rMxhFB IugxuqLwC3UBmvCGIhobv vQUn0KAtsFNBpiNA3HIFg uUTdO5DxFNJqJS5iisj2N KJ4PZfpTHTxAqP7LNDjyL YnZBHfvFwvWSudq010KOT 7MsVqFFRxnsRcdOqhzU0r GlRoMOJPoFAju5EiYBslz pUySWAsA7v4o4XtwRvxnI 9neSBjYXNlczogQzIzLTA pEdQ2PRYQYnHzELRaKyTp cGFyfQ== CPT Code(s) (test code = z1cscAQyNWZwlKY1MeCuJ 3357) WCwr5pqm5HxtBKeuPFtMO exvKGgnaByym15zXC7fC6 9NV0qCSUhGvG1LQRxwqL6 Uhc1CPZdCJDdlYCpF435r 1ude3fdzsCxvMK4iUmiUN PqavumItS6XCppODJsyfc qQWo0KHmiJOTcqXW4RFXm qBZrQ1KbXPDhTM6lpqx2Z NZ3WSowODTjKoR3JPWlqY FuDJYgoEajNOnkg897NGX 5HiHaNKNyqoFnnZhymB1j WjJgHZS9DSO7JvqxGVegC tDhRFy6XdV6VVSdym6= CLINICAL DATA (test code z5nypXVyTRGxeJR1YvFwI = 3355) KHhu5uyv7IcbJNoaWApUZ xgnKJcubKhzy41gPA9vD7 2CA7aSPKaEmC4VQGdigN2 Cut5XTZxMFHbuLIhO484l 0dpf8sekpOoqGU9qEehSE LoruvkSrD6XYdlUXOvjgp yZVj1BXsfLKOgmCC5XBBz sBJxC5MxOVBeZQ2tmhj2H NN9KFgsZHAqDmR2KNCajB GuPCRfcHtiFLcxw654TCQ 2SqTuOMIoerWrgUohvA5h PgUxFHO5EUE3Kz3vSZH9U cTwG88zUVU0oOYugMepQD NqrxdeZMB2RGEsJIOzQBF tjV3eLIMDY5VPPC6jNURx riU5dH3bzSAmeL9oBHDkC tYtBE2bT1UfG6usa3ExLB KEWWJtiW0eCQ1rm6BakDQ yl5ItlI0uOKChFDOzpA7t VY8lKNY4CN30UEQXNFq9c PTqOPNzjF2bv7bhe3QvWs TLCOy3yupxkx7kcTdxLUJ xQRUjMIalaiGyp5OpxKo1 JDYpl0UilO5shye3MSPkG wKfnxCwdYhgrYAlYD3khg 1zbWFsbCBjZWxsIGNhcmN lwz6mSK9qiZJakR== SPECIMEN SOURCE (test c3opbFAjOSQraIT8VvEzS code = 3377) OQll2wwi4DftSSgtPJeHQ vllXJqelXdzk75gEO3vC3 4HS2iJKFmNtH3XSIgyzK3 Epq5VTWvYZItbIKbV033m 7zih5svoyBdfWV8tZyqYC AaqdnwGxW1GBmaYIGtjoa uJLe1BJuaUALadJE6QGXl nTPiB9QgBTDtPZ6ensu0G XM4ULiuTMFzZmD9OUMsnT SzSSIkbWtrNBfkb385OTC 5YsSzMTTcjdWyxYdomW7z YmZuQCDAPI5ZRGJYM2MUI CBJTlRFUkxPQkFSLCBMRU BUSNAEEKOKOG9LDTVpUXX FQlVTIEZOQVxwYXJ9 GROSS DESCRIPTION (test z7aksZNnZOVyiASJBFIsL code = [id number]) 6epakNgLDMqrUUgK6Rloo ffORaqRU0eFX9gbIcgfWF idSIyYW5XBBOcMxJoGLVs cGVydzEyMjQwXHBhcGVya PR0YIXvGR4qtmjoWOvzAA toLFCjovS7URLmgGYxY5F oTEYxSN1jaoptUCD4QIqv xZ1pzzLRZkroHo9wpUEji HtcZjFcZmNoYXJzZXQwXG InsMwuHZAuQSv6lD1AIwx eHGM5UBWTZaniEQIfMD0P o2ybDZMvsTEqREA1PEkvk SQxSIYtWOGqMUn5PURmYK gutYKsWG9edZmbVnokdZp px5UgqKZxNHkyXYMnQHSp QFjyPBTuYJ4QNgZaVIooB gv7UhTdULt9XBu7OS5BYs JdLPCnDiT9Anv4OoTfKVk 0LQovZU3ICOR0BBt6WBn8 GSC8OBVtYVZkUEFaRzTsB GYgQXJpYWwgXFxmbCBcXG 1fgDgskDWeubOICpLDlP2 tqDZLb3RnBTSZdnWbdsmn XfFaUXQSSAP7YTHMmFV7j J3dOUPvIU5wuAYdYP7WJQ VyyRDCANF0FP2tIURZKmu rfLCeGMHuiGfiMOeowG3h JU1DDJf0cyZfAACuTkJsX lGoGYm0HAAoNdfotDvzTC quXPE7lM7meXHfBEFrJOQ zueCqLpQuzJGaA5Acv60n PMOlx8goMKJeMnKlccImP TIkVWOfGUevIXCvt3SaRZ fOWrgqWCVodDeiOcvmH3b vqRwdD1BhIPehOQEsnb4r lVmxFKQ1AVJ0WuBbYT9vI DAyLzAyLzIwMjMpICANCl xwbGFpblxlcGljTmVzdER tKoEwqUhctE97TLPveBXa KWT2CE7iAAYoezakTUEaB QZtPNS8BPaegP56sCPmHL PyUAAthDQcdO6OWFJlLWY 8CXliiI93nCSnCG8YQFKu INY2XDMkbXHtYSV7EP7rs Q0KfQ== INTRAPROCEDURAL ADEQUACY q0yntLJfLXZqmWD1IlJjX (test code = 3370) SJek7wgv2DxsRKjhKQsGJ jhfXQanpUlka88bWT9wN6 5HL1fOZJxSpS8SGIxtsI5 Gqg3BJLaQEZjrBVlK882n 2ckz9jrjtSgcSJ8uTjzXU AsfrjvRiD0YTmhIYViquy bSDf3WHpxDPDzmPM7CJTa zJYiC4YhQFZiHF3ceep4U SA7OMwtKLWyPxK5ICYmoZ PzWTRirAbhHOxpu118OSZ 8QjDvFYAthpJgqPgayY6l SaTgEKHFWRIPYP9TALEqB OBGIF1ANUHPB1KZXbxhZS RuOGSNF9WvHYLNCOEXOAA tGSEHBH9VFKZVVUBKULAS JUwXIA3GSTUZDTBRYWXXV eYcXD2NVCLaKnQbBcBhCe MpXHBhcn0= MICROSCOPIC DESCRIPTION t4qmzLJcAJBvpVO9JdJoN (test code = 3371) WNsy0jyd6QvwCAbnRAsWI etvTPsksIsme72iFI1aY3 0SS5eQQElYhS5WHSxrnE6 Nef1HLFwQCVytPTbH871t 0tlf9fsslLokAH4kQorOP GggvldOgX1BNqrUEAttlf hIBz3WHzgCLBisTV0DCJs gNNnU2TiRRYhBG4syrv8I PC1NHhkSGDuVrP3CYJyyM IkUKDgzNelHYszb628EHC 3ZhQuTZBenfFzcSfimG8o VyDuIEFTDTXch5KlSWNuE HBhclxwYXJkXHBhcn0= Gross assessment was [facility] performed at (test code [facility], = 2777) Department of Pathology, [address] [place] [id number], Technical component was [facility] performed at ([facility] code [facility], = 2778) Department of Pathology, [address] [place] [id number], Professional component [facility] was performed at ([facility], code = 2779) Department of Pathology, [address] [place] [id number], [facility] [id number] 13:35:13 Test Item Value Reference Range Interpretation Comments Case Report (test code = Medical Cytology 104) Report Case: [id number] Authorizing Provider: Izabela Galvan Jr., Collected: 07/13/2022 02:10 PM Ordering Location: [facility] Received: 07/13/2022 02:43 PM PERIOPERATIVE SERVICES Pathologist: Lopez Reyna MD Specimen: Lymph Node, Interlobar, Left, Station 11L DIAGNOSIS (test code = t6vcvJQhCUMqs8hyUUTsh 3220) GFuZzEwMzNcZnRuYmpcdW MxIHtccnRmMVxlcGljOTY zUtstriDkSSGziXErT7Uh swqzDHdbKX6eYT3opKlra ASfrTPtHVFnWwShp4nas4 24zYMig6foQIKEbxwcdOc 6uCebE95ny9N3BxydZ95e gDNhLBH3BBOyNFZauDUkC CKlWOX5MMGjqRNlC5seXT UmAC4ukkmcYYzdYEolMGF beDE5FYObhEZiS6GzNWXz WTqvJTPpvnh8JgPqTk9vq GVyeTcyMFxwYXJkXHBsYW luXGZzMjAgTFlNUEggTk9 ERSwgTEVGVCBJTlRFUkxP YtWQDMIAJUKWD24kLPUFP CBFQlVTIEZOQSAoRElSRU JZRFCPZNUAWmLBRtKkT6W JTNXXDX3ADba1HRGzsdQw LZOfMX2EH4BEGJGQQMWUH gBYJClTWTNYSEOZYW7VTG hUBbJLN7jmHDGhamXsDYR tIEJFTklHTiBBTlRIUkFD W7LCSnMGFF2NWNMAW5HSU EDNDBpPHJ4RIs8gYRLvvq 08RFF1VaFtc6L6GYL8ZQK oFMWfk4euAKYqbJYrFqAs MzNcZnRuYmpcdWMxXGRlZ lUay6xdh951jUPkf6jzYM OeSdN3bGRrJWJxeYOpO76 2JSNmMBlyu0bhf0LrEYNn dIQxl5O3FTYXhofakVw5f HosJ52gc1H1PllgT4ldRZ NhFCUfX7CzPE1mMEWzTks 3OJU4JYS2IYVmRWQxQ0Gr ZA5eTGLhhTYsOUz2g6plp LckWSUvDXB1f7hxGUejrm TwST4imw9krCb2e2lhrbO kKPCdZXCuhVJTVFCgC5Tt jCwhSu1btYy2fHyiEhfbU TO4Zzv3WC0anr96gyy9lY cbCLCquonkFoJ3ZCkcZNH vsxuhZYs5BTtzKOXlzNA0 VWBnrILoY1ZrXDBkEN0fj sh5YPB4AWtgNOXwEsT3SE XnhTCtEWBtbCecCSuxn90 3CQL6XsTzYV4mA3Ywa4Q1 wA9krBWsSRNmrZPyWqSjC GApte3dkEGjSBhbn2QoVH A4gsF0yFPmaSCiNXBzVyD 1MTfhLW8nrp25HXAvDDA7 ks8lcBBecVxlvjKixNQuT ZhoN9CcHHMql728XMBrG9 GfZHAmb9X1igBqPcMoQMF bjAY5xlE3SRZxFQ2cemqc b5vaWFdrPZmzRRHiasY3n kX1MUNpnMIhA4VgeN8oZC AlAP3gpeshu8sdHOJ6UTf pWIRfMTT7JrWkANNpm4Yb klx4WlEjc6RngVFlMDvdG 53uu129BLPrllXrY2pmjH FpblxwbGFpblxmMFxmczI 0XHFsXGxhbmcxMDMzXGhp E7jcEqRtSZKftJswALxpn 2NoXGYxXGZzMjJcdGFiXH PlFrt7GHBysQYrZLXsSiG jY5ozyczwPsHODVRfi9pd I6gnjANRuLJdQ9KnGXexi tYaTTwpHFtkEhMxMGn3NO 58SqIiFKNqvi28 COMMENT (test code = f9cwyGAcLCGqqEV3KeZyJ 3359) JSmc9wrn2ItjMSlsYUbOD zeyOAnpaMuhn74zOY9sE0 5PJ1aFWQhYbE6SPWrrnU8 Fgg7KSBdNNWauFRxL487r 9mvd0aclhQpuRF7lTuwGO QovnqpWjT1FIqlJTWkouk kACt2EUjdWLTlaRL5WCZx gNGvE2IrDZItXM1pemz2M ZL1DKjyWYNkYrQ9ZFMjnO ByARJdmGepCNayr538HOF 2QfKzYYIwrjGavDixiL7f QgKgADZPsZEuh8OtWBzol aIlELGqU7d6b8VddYzjsZ 9neSBjYXNlczogQzIzLTA wRfH7VIFNGpKcXZUaCiVu cGFyfQ== CPT Code(s) (test code = q1ftaIBkLPDbeIN1LmPcE 3357) ACbt9cxf9QvtJHdaEVwVR ucuHFsabKpee78yMK4dF3 7WV5cLQJyTeT8SVGsjoT9 Cyr1PNNrFDRciYFeQ519u 9gpo2trsqIdyUB9zKctSX ZotbqmUxU1XKlgLOSarec iDSd5QZoeHRJkmNA8JWDt eEOmE2YaTXKiYE5klyl8Q DX8LKnvNUZfWsO6ALQrmU PoYNFkgHfrMTcqn380TWL 4YaNvCWDmbsVdkZixyU1n QkHsEOK4ZNR9DyqyXFyuB aWrWTs5QdP7NLTyqf9= CLINICAL DATA (test code g9thdWUrHYXbcRJ9RmUaP = 3355) SJju9qha7NajIQrkAMdON qhiUHuqvDoot88cBA2vQ9 7PM9xGCTgPzC9KBGstsL5 Gom6TTMrEVUagIGgM988c 9rwl0pqhjFuqBV4hPsrCG VedtelItP4ZOpiRHQzbww mBWv6ASicULLvbLZ3TBXf tWKyS2SbWBTaBM9gujw9K XU2YFklTCMnQeB2FYEizR QiPMPjoUrlYHhdw104NBO 7MpMxLVBntfTffWzfyF9g UsTmCVE9PAP4Hp5xSLT9L zXmN37xNLJ5zFZvxSxoQX ZrpgdrSER5BYVrYNHwEGT jdH1rLGULM8GQBQ1yMNCl mnB0wY8wbNUihV4uPBKrB pXyWQ9lI1GoY7sge4HqYD MISJPmwK1iNE2oe5BnnZT tm3BblJ9bRZTaNZFhkB6o IG8oGXP9QI87IKUUEWd9b MYvZARgjW7bx9biz7QgGj UCWZq2ilqhlk5taFgnBTB bNAHlQBnjbxKrx2FqtOx0 JWQvb0SshJ9rtff0GSAjP xFnekImyQqhgNQhIO1zhk 1zbWFsbCBjZWxsIGNhcmN yzu4yRJ1unUIjfC== SPECIMEN SOURCE (test z6fqbEAjBWMxvYD4EsZtK code = 3377) TXud6jcd9DetDHcoXDjCU wugSSzcvIniy22fDZ2fY9 4HA7hLDXbQuW6UEKkkwW1 Ews7ZVRgISUkpIArI808g 2fyw8qrxrMkcIG4rGrbOC RyozjrSmP8ZMtlBAVhooc hRWd0RCnxXVSnsVJ1BDRt hKNvC8AhYOOmJM5zaem2X NW5VKrfTGUeJnD6CNFlxF XhXVMbaMelCOlny305FVH 2ObZqNVOhpvHqeWmmeW8w ChNbCPFMTD3NJDHNB5LHN CBJTlRFUkxPQkFSLCBMRU SBNHKYDNUWGG8WJBTxEWQ FQlVTIEZOQVxwYXJ9 GROSS DESCRIPTION (test s8tuaWKwNXZdnGGLSNVqR code = [id number]) 2mmfbFcWOAkiGGiB6Irtd tiAHjgUT5xSP6raLtilBV axORaNQ4GMPMaEvFvPJHd cGVydzEyMjQwXHBhcGVya PH0UQNeUC8pyoxfIWcjGK hxLDZldsL5ZYEvkBMlS7R sECOlTA1gpszeLUK0CUil fQ4vdtTELfgzBt2tzNWwf HtcZjFcZmNoYXJzZXQwXG BpdOjbKULwOSy0gM3UDdi cPET0TKUCGfyvHYDiPM5K z7fcCOPzoTLjNIP2QHsoq TWiQLIqMWEsXRv9UXLnOI zbdYOqYP1fcQnqTzaeiFm yi3YmnDFvWOfnHTJuRGQu VYsmKBGyFD2CXiNtTJodV uc8LjGgTOk8TQr2WI1KTi QvIEXkVzP8Sos8TiKeVZo 0FRefTE1GFXO2XUz6EPm1 EQA9ANNiCNEiJFAnXaQrE GYgQXJpYWwgXFxmbCBcXG 6gcEktlHVqrxEXWlUQiZ3 jbHHRz8DsQAOTshOwcoyh IfNpFZDBIVU2TIHXqDK3n G5gNBOtJZ8vzONiSR0DWE RtiMGSGAL4NC8qZQFUPgp dmUKdSDVyfVugETywbA7x DC7HZFq9iwYaHVZbCcZiS sHwUIu2TQLwXsrxhZbbZI msBDL0iK8osDUyJKSqYPP xwyYqUlBctDJgG8Ggp59m WEXjo1kfMBEkRvYdqvCyX HThYAPwNHfrGYCfh8IxHQ vTCauvCIRmoQjrRvddJ5t zvFufS4SeJNqtYFZohy1x oNikWNW9WBV0OlYiDB2mB DAyLzAyLzIwMjMpICANCl xwbGFpblxlcGljTmVzdER lLcWovVunvV17DPBqaRAc TXL4KP5yEDEfjgteJQWtD XZsROJ9OSgueG09cARcST GgAQAmkAIyqQ6DHGCdNIC 4EBrlzD82xVQcRG0AZRMp UXH5COLrmSQjNPN1BK4fv Q0KfQ== INTRAPROCEDURAL ADEQUACY a9xsiPTeDATzuYG2ZuVzE (test code = 3370) GDzu6edc0SakZWmyIOjUX gejCVyleChua51qND3wK5 7SR6bLEXpIqS2ZEXeskL6 Zfz3CJZjLPKxoRZaS446a 7rfp8qdkmNyzYM6qSkbGF MjykzkTbY0OKldUSOewry tKUd5OGzlJYQxbOM4ZWPh qSKdW7UiMCZzIH3ntqt5T NB3IQxyGYXzSlZ6ALTasQ AxFXNocFmgNHtsk973BTO 0CvKtRAVhpjAylSqmiL4b JkTiOYHBVKSYME2WSXDeI KDCOR8RYEGRR7WRYihlYH GyJVUNE2EpKDIFQVMKXOW kUMMEKZ5MZUSFFPRQLJMQ VAuBZN3UCZUFPLCPAAEKI eZiMN2RRRCmTfZpZrXmQv MpXHBhcn0= MICROSCOPIC DESCRIPTION m3nkeMEiBQSfwHF1ViAiX (test code = 3371) GDre4cqo5XdiFCxwQVjUZ mqlBKgvdMfgi00hTW0dW1 0OU5iLFZvAnD1THTmssD2 Dwj0AQOiIJGrgMTfJ610l 1ccc9budkAzyGL2rFleRD FmzrvsPeG6QVdzQIQvigd zTFt1KDcgKQWqwHW0EMTk uOKaS4RnSYWuCI8twza8M FQ1EVuoXBZrHlC7YOSboC SzZIRmuKugQTvjw535FNG 6KmPxFXPhtvCwtWmquO5p LhZsLUJIHAEuy5AyXHJiP HBhclxwYXJkXHBhcn0= Gross assessment was [facility] performed at (test [facility], = 2777) Department of Pathology, [address] [place] [address], Technical component was [facility] performed at ([facility], = 2776) Department of Pathology, [address] [place] [address], Professional component [facility] was performed at ([facility], code = 2779) Department of Pathology, [address] [place] [address], [facility] BY [id number] 13:35:13 Medical Cytology Report Case: [id number] Authorizing Provider: Izabela Galvan Jr., Collected: 07/13/2022 02:10 PM Ordering Location: [facility] Received: 07/13/2022 02:43 PM PERIOPERATIVESERVICES Pathologist: Lopez Reyna MD Specimen: Lymph Node, Interlobar, Left, Station 11L LYMPH NODE, LEFT INTERLOBAR STATION 11L, EBUS FNA (DIRECT SEMARS AND CELL BLOCK): - NEGATIVE FOR EPITHELIALMALIGNANCY. - BENIGN ANTHRACOTIC LYMPH NODE FRAGMENTS. Signing Pathologist Direct Phone Line: [phone] signed by Lopez Reyna MD on 07/14/2022 at 1:35 PMPlease also see cytopathologycases: [id number], [id number], [id number], [id number] y.o M w/ h/o arthritis, anxiety, depression, [...] ADEQUATE (REPORTED BY PATHOLOGIST HIRAM Hinton ON 07/13/2022)Performed.[facility], Department of Pathology, [address] [place] [address], [facility], [facility] of [facility]ology, [address] [place] [address], [facility], Department of Pathology, [address] [place] [address], XODF NEEDLE ASPIRATE BY [id number] 13:02:23Medical Cytology Report Case: [id number] Authorizing Provider: Izabela Galvan Jr., Collected: 07/13/2022 02:10 PM Ordering Location: [facility] Received: 07/13/2022 02:42 PM PERIOPERATIVESERVICES Pathologist: Lopez Reyna MD Specimen: Lymph Node, Lower Paratracheal, Right, Station 4RLYMPH NODE, RIGHT LOWER PARATRACHEAL STATION 4R, EBUS FNA (DIRECT SEMARS AND CELL BLOCK): - NEGATIVEFOR EPITHELIAL MALIGNANCY. - BENIGN ANTHRACOTIC LYMPH NODE FRAGMENTS. Signing Pathologist Direct Phone Line: [phone] signed by Lopez Reyna MD on 07/14/2022 at 1:02 PMPlease also see cytopathology cases: [id number], [id number], [id number], [id number], [id number] y.o M w/ h/o arthritis, anxiet y, [...] BY ALICIA GANDHI M.D. ON 07/13/2022 2:47 PM)Performed.[facility], Department of Pathology, [address] [place] [address], [facility], Department of Pathology, [address] [place] [address], [facility]qlhdsCity [facility], Department of Pathology, [address] [place] [address], Cvrw Needle Aspirate (EBUS)2022-07-13 16:01:20 Test Item Value Reference Range Interpretation Comments Cytology (test code = See Separate Report 2629) [facility]2022-07-13 16:01:20 Test Item Value Reference Range Interpretation Comments Cytology (test code = See Separate Report 2629) [facility] (EBUS)2022-07-13 16:01:20 Test Item Value Reference Range Interpretation Comments Cytology (test code = See Separate Report 2629) [facility] Needle Aspirate (EBUS)2022-07-13 16:01:20 Test Item Value Reference Range Interpretation Comments Cytology (test code = See Separate Report 2629) [facility] (EBUS)2022-07-13 16:01:20 Test Item Value Reference Range Interpretation Comments Cytology (test code = See Separate Report 2629) [facility] (EBUS)2022-07-13 16:01:20 Test Item Value Reference Range Interpretation Comments Cytology (test code = See Separate Report 2629) [facility] (EBUS)2022-07-13 16:01:20 Test Item Value Reference Range Interpretation Comments Cytology (test code = See Separate Report 2629) [facility] (EBUS)2022-07-13 16:01:20 Test Item Value Reference Range Interpretation Comments Cytology (test code = See Separate Report 2629) [facility] (EBUS)2022-07-13 16:01:20 Test Item Value Reference Range Interpretation Comments Cytology (test code = See Separate Report 2629) [facility] FNA [id number] 16:01:20 Test Item Value Reference Range Interpretation Comments CYTOLOGY RESULT POINTER See Separate Report (BEAKER) (test code = 2629) EBUS FNA [id number] 16:01:20 Test Item Value Reference Range Interpretation Comments CYTOLOGY RESULT POINTER See Separate Report (ROXI) (test code = 2629) EBUS FNA [id number] 16:01:20 Test Item Value Reference Range Interpretation Comments CYTOLOGY RESULT POINTER See Separate Report (ROXI) (test code = 2629) RAD, CHEST, 1 VIEW, NON [id number] 15:54:00Reason for exam:->s/p EBUS, eval for pneumoShould this be performed at the bedside?->Yes [facility] 1955 Sex: [...] 07/13/2022 15:54:29 RAD, CHEST, 1 VIEW, NON [id number] 11:32:00Reason for exam:->lung noduleShould this be performed at the bedside?->Yes [facility] : 1955 Sex: MFINAL REPORT [...] 94 mg/dL 70-110 : TE STED AT [facility] code = 1538) [address] [facility], 770 30: Radiology Orderly/Techni garth ID = [id number] for AIDA RODARTE Lab Interpretation (test Normal code = 19956-6) [facility]Glucose [id number] 09:22:03 Test Item Value Reference Range Interpretation Comments POC-Glucose Meter (test 94 mg/dL 70-110 : TE STED AT [facility] code = 1538) [address] [facility], 770 30: Radiology Orderly/Techni garth ID = [id number] for AIDA RODARTE Lab Interpretation (test Normal code = 97006-5) [facility]-Glucose [id number] 09:22:03 Test Item Value Reference Range Interpretation Comments POC-Glucose Meter (test 94 mg/dL 70-110 : TE STED AT [facility] code = 1538) [address] [facility], 770 30: Radiology Orderly/Techni garth ID = [id number] for AIDA RODARTE Lab Interpretation (test Normal code = 62448-7) [facility]-Glucose [id number] 09:22:03 Test Item Value Reference Range Interpretation Comments POC-Glucose Meter (test 94 mg/dL 70-110 : TE STED AT [facility] code = 1538) [address] [facility], 770 30: Radiology Orderly/Techni garth ID = [id number] for AIDA RODARTE Lab Interpretation (test Normal code = 53738-3) [facility]-Glucose [id number] 09:22:03 Test Item Value Reference Range Interpretation Comments POC-Glucose Meter (test 94 mg/dL 70-110 : TE STED AT [facility] code = 1538) [address] [facility], 770 30: Radiology Orderly/Techni garth ID = [id number] for AIDA RODARTE Lab Interpretation (test Normal code = 75693-7) [facility]-GLUCOSE [id number] 09:22:03 Test Item Value Reference Range Interpretation Comments POC-GLUCOSE METER 94 mg/dL 70-110 : TESTED A T [facility] [address] (BEAKER) (test code = [facility], 1538) [address]: Radiology Orderly/Techni garth ID = [id number] for AIDA MEYERS COMPREHENSIVE METABOLIC [id number] 13:45:01 Test Item Value Reference Range Interpretation [...] not appl icable for dialysis patien ts Radiology Orderly ID - PIAYA LPT/[id number] 13:32:15 Test Item Value Reference Range Interpretation [...] mechanical heart valves.CBC W/PLT COUNT & AUTO [id number] 13:28:04 Test Item Value Reference Range Interpretation [...]
[2023-04-15] MEDS ORDERED: ALBUTEROL 2.5 MG/3 ML NEB SOL ONE (09:35)
[2023-04-15] MEDS ORDERED: IPRATROPIUM BROM 0.5MG/2.5ML ONE (09:35)
[2023-04-15 09:44] LABS: Absolute Lymphocytes (CBC) 1.4 K/uL (0.7-4.9); Hematocrit 41.5 % (39.6-49.0); Lymphocytes % 14.1 % (15.3-44.8); MCV 89.3 fL (80-100); MPV 7.3 fL (7.6-11.3); Platelets 448 thou/uL (152-406); RBC Red Blood Cell Count 4.65 M/uL (4.33-5.43)
[2023-04-15] MEDS ORDERED: FENTANYL CITR 100 MCG/2 ML ONE (09:56)
[2023-04-15 10:10] LABS: Protime INR 1.03
[2023-04-15 10:23] LABS: ALT/SGPT 29 U/L (16-61); AST/SGOT 19 U/L (15-37); Albumin 3.1 g/dL (3.4-5.0); Alkaline Phosphatase 115 U/L (45-117); BUN Blood Urea Nitrogen 11 mg/dL (7-18); Bicarbonate 31 mEq/L (21-32); Bilirubin Total 0.2 mg/dL (0.2-1.0); Glomerular Filtration Rate 102 ml/min (=/>90); Glucose Level 110 mg/dL (74-106); Magnesium 1.8 mg/dL (1.6-2.4); NT PRO-BNP 49 pg/mL (<125); Potassium 3.8 mEq/L (3.5-5.1); Protein, Total 8.2 g/dL (6.4-8.2); Sodium Level 138 mEq/L (136-145); Troponin High Sensitivity 6.3 pg/mL (<58.9)
[2023-04-15 10:24] LABS: Bilirubin Direct < 0.1 mg/dL (0-0.2); Bilirubin Indirect, Calculated ND mg/dL (0.2-0.8)
[2023-04-15] MEDS ORDERED: HYDROMORPHONE HCL 1 MG/ML INJ ONE (12:13)
--- NOTE | 2023-04-15 12:43 | RAD REPORT ---
EXAM DESCRIPTION: RADChest Single View04/15/2023 12:15 pm CLINICAL HISTORY: DYSPNEA COMPARISON: Chest Pa And Lat (2 Views) dated 01/05/2023; Chest Pa And Lat (2 Views) dated 10/18/2022; Chest Single View dated 08/27/2022; Chest Single View dated 02/20/2022; CT RAD RX FIELD SPINE dated TECHNIQUE: Portable AP view of the chest. FINDINGS: Postsurgical changes of right lobectomy again seen. Opacification at the right base is sta ble, reflecting stable elevation of the hemidiaphragm as well as small components of effusion. No sof t tissue thickening or component of effusion laterally at the upper to mid lung as well as lytic moses ges along the anterior right second through fourth rib are now seen radiographically, previously seen on the most recent CT. Central interstitial prominence, not significantly changed, may represent preeti tral congestion. No pneumothorax or left effusion. The cardiomediastinal contours are unremarkable. IMPRESSION: Stable extensive findings since the most recent comparison CT, as detailed above.
--- NOTE | 2023-04-15 12:55 | ER ---
Nurse's Notes [facility] Name: Ye Coleman Age: 67 yrs Sex: Male : 1955 Arrival Date: 04/15/2023 Time: 09:08 Bed 5 Private MD: Diagnosis: Lung cancer;Chest pain on breathing Presentation: 04/15 09:16 Chief complaint: Right sided chest pain that radiates to back x months, worse over the hb last 2-3 weeks. Has lung CA, had right lobectomy 9 months ago, on 5LNC home O2. Coronavirus screen: At this time, the client does not indicate any symptoms associated with coronavirus-19. Ebola Screen: No symptoms or risks identified at this time. Initial Sepsis Screen: Does the patient meet any 2 criteria? HR > 90 bpm. No. Patient's initial sepsis screen is negative. Does the patient have a suspected source of infection? No. Patient's initial sepsis screen is negative. Risk Assessment: Do you want to hurt yourself or someone else? Patient reports no desire to harm self or others. Onset of symptoms is unknown. 09:16 Method Of Arrival: Ambulatory hb 09:16 Acuity: EDMOND 3 hb Historical: - Home Meds: 09:37 duloxetine 30 mg oral capsule,delayed release (e.c.) 1 cap daily [Active]; ibuprofen mb9 600 mg Oral tablet every 6 hours for pain [Active]; Senokot 17.2 mg Oral [Active]; hydrocodone-acetaminophen 7.5-325 mg Oral tablet 1 tab 3 times per day for pain [Active]; - PMHx: 09:16 Lung Cancer; neuropathy; mb9 - PSHx: 09:16 Appendectomy; Partial lobectomy - right upper lobe; mb9 - Immunization history:: Adult Immunizations up to date. - Social history:: Smoking status: Patient/guardian denies using tobacco. Screenin:36 [facility] ED Fall Risk Assessment (Adult) History of falling in the last 3 months, mb9 including since admission No falls in past 3 months (0 pts) Confusion or Disorientation No (0 pts) Intoxicated or Sedated No (0 pts) Impaired Gait No (0 pts) Mobility Assist Device Used No (0 pt) Altered Elimination No (0 pt) Score/Fall Risk Level 0 - 2 = Low Risk Oriented to surroundings, Maintained a safe environment, Educated pt \T\ family on fall prevention, incl call for assistance when getting out of bed. Abuse screen: Denies threats or abuse. Nutritional screening: No deficits noted. Tuberculosis screening: No symptoms or risk factors identified. Assessment: 09:35 General: Appears uncomfortable, Behavior is cooperative. Pain: Complains of pain in mb9 chest Pain radiates to back Quality of pain is described as throbbing, Is continuous, chronic. Neuro: Huerta Agitation-Sedation Scale (RASS): 0 - Alert and Calm Level of Consciousness is awake, alert, obeys commands, Oriented to person, place, time, situation, Appropriate for age. Cardiovascular: Reports chest pain, shortness of breath, Heart tones S1 S2 present Patient's skin is warm and dry. Respiratory: Airway is patent Respiratory effort is even, unlabored, Respiratory pattern is regular, symmetrical, Breath sounds with wheezes in right middle lobe, right lower lobe, right posterior upper lobe, right posterior middle lobe and right posterior lower lobe. GI: Abdomen is flat, non-distended, Bowel sounds present X 4 quads. Abd is soft and non tender X 4 quads. Patient currently denies diarrhea, nausea, vomiting. : No signs and/or symptoms were reported regarding the genitourinary system. EENT: No signs and/or symptoms were reported regarding the EENT system. Derm: Skin is pink, warm \T\ dry. Musculoskeletal: Range of motion: intact in all extremities. 10:53 Reassessment: Patient and/or family updated on plan of care and expected duration. Pain mb9 level reassessed. Patient is alert, oriented x 3, equal unlabored respirations, skin warm/dry/pink. Patient states feeling better. Patient states symptoms have improved. 12:30 Reassessment: Patient and/or family updated on plan of care and expected duration. Pain mb9 level reassessed. Patient is alert, oriented x 3, equal unlabored respirations, skin warm/dry/pink. Patient states feeling better. Patient states symptoms have improved. Vital Signs: 09:16 BP 155 / 52; Pulse 93; Resp 18; Temp 97.7(O); Pulse Ox 96% on 5 lpm NC; Weight 68.04 hb kg; Height 5 ft. 5 in. ; Pain 9/10; 10:05 BP 140 / 80; Pulse 90; Resp 18; Pulse Ox 100% on 5 lpm NC; mb9 11:49 BP 126 / 79; Pulse 95; Resp 18; Pulse Ox 99% on 5 lpm NC; iw 12:57 BP 116 / 83; Pulse 89; Resp 16; Pulse Ox 100% on 5 lpm NC; mb9 09:16 Body Mass Index 24.96 (68.04 kg, 165.1 cm) hb 09:16 Pain Scale: Adult hb ED Course: 09:11 Patient arrived in ED. mr 09:11 Bibi Darnell, AUDREY [facility]. jh7 09:11 Arturo Lake MD is Attending Physician. jh7 09:16 Amber Dave RN is Primary Nurse. mb9 09:16 Arm band placed on. mb9 09:16 Placed in gown. Bed in low position. Call light in reach. Side rails up X 1. Client mb9 placed on continuous cardiac and pulse oximetry monitoring. NIBP monitoring applied. slip cover estimator on. 09:18 Triage completed. hb 09:28 EKG done, by ED staff, reviewed by Bibi VENTURA. mb9 09:28 Inserted saline lock: 22 gauge in right forearm, using aseptic technique. Blood mb9 collected. 09:35 Basic Metabolic Panel Sent. mb9 09:35 CBC with Diff Sent. mb9 09:35 LFT's Sent. mb9 09:35 Magnesium Sent. mb9 09:35 NT PRO-BNP Sent. mb9 09:35 PT-INR Sent. mb9 09:35 Troponin HS Sent. mb9 09:39 No provider procedures requiring assistance completed. mb9 10:07 XRAY Chest (1 view) In Process Unspecified. EDMS 12:57 IV discontinued, intact, bleeding controlled, No redness/swelling at site. Pressure mb9 dressing applied. 13:07 Provided Education on: follow up with PCP. iw Administered Medications: 09:34 Drug: DuoNeb Nebulize (2.5 mg - 0.5 mg) 3 ml Nebulizer once Route: Nebulizer; mb9 09:47 Follow up: Response: No adverse reaction mb9 09:47 Drug: fentaNYL (PF) IVP 50 mcg IVP once Route: IVP; Site: right forearm; mb9 09:50 Follow up: Response: No adverse reaction mb9 12:07 Drug: HYDROmorphone IVP 1 mg IVP once Route: IVP; Site: right antecubital; iw 12:45 Follow up: Response: No adverse reaction mb9 Medication: 09:37 VIS not applicable for this client. mb9 Outcome: 12:55 Discharge ordered by MD. jernigan 13:07 Discharged to home via wheelchair, with family, iw 13:07 Condition: good 13:07 Discharge instructions given to patient, family, Instructed on discharge instructions, follow up and referral plans. Demonstrated understanding of instructions, follow-up care, 13:08 Patient left the ED. iw Signatures: Dispatcher [employer] EDMS Amber Argueta, Reg Reg mr Amanda Diggs, RN RN iw Colleen Newell, RN RN hb Bibi Darnell, REPORTING DEVELOPER REPORTING DEVELOPER Amber Mccormack, RN RN mb9 Corrections: (The following items were deleted from the chart) 09:20 09:16 Chief complaint: Pain all over x months, worse over the last 2-3 weeks. Has lung hb CA, on 5LNC home O2. hb 09:20 09:16 BP 155 / 52; Pulse 93bpm; Resp 18bpm; Pulse Ox 96% 5 lpm Nasal Cannula; hb hb 09:28 09:16 BP 155 / 52; Pulse 93bpm; Resp 18bpm; Pulse Ox 96% 5 lpm Nasal Cannula; 68.04 kg; hb Height 5 ft. 5 in.; BMI: 24.9; Pain 9/10, Adult; hb
--- NOTE | 2023-04-15 12:55 | EDPHYS ---
Physician Documentation [facility] Name: Ye Coleman Age: 67 yrs Sex: Male : 1955 Arrival Date: 04/15/2023 Time: 09:08 Bed 5 Private MD: ED Physician Arturo Lake HPI: 04/15 09:16 This 67 yrs old Male presents to ER via Ambulatory with complaints of Pain All jh7 Over. 09:16 Onset: The symptoms/episode began/occurred 3 week(s) ago, and became worse 3 day(s) jh7 ago. Associated signs and symptoms: Pertinent positives: chest pain, shortness of breath, Pertinent negatives: abdominal pain, fever. 67-year-old male complains of right-sided chest pain radiating to his back progressing over the past 2 to 3 weeks. He states that he had a lobectomy on the right side 9 months ago. History of lung cancer but is not getting chemo or radiation at this time. Reports that he is a former smoker and is on 5 L of O2 at home. The patient's son noticed that even with the oxygen the patient's oxygen will drop to the 80s with any exertion. Denies fever.. Historical: - Home Meds: 09:37 duloxetine 30 mg oral capsule,delayed release (e.c.) 1 cap daily [Active]; ibuprofen mb9 600 mg Oral tablet every 6 hours for pain [Active]; Senokot 17.2 mg Oral [Active]; hydrocodone-acetaminophen 7.5-325 mg Oral tablet 1 tab 3 times per day for pain [Active]; - PMHx: 09:16 Lung Cancer; neuropathy; mb9 - PSHx: 09:16 Appendectomy; Partial lobectomy - right upper lobe; mb9 - Immunization history:: Adult Immunizations up to date. - Social history:: Smoking status: Patient/guardian denies using tobacco. ROS: 09:16 Constitutional: Negative for fever, chills, and weight loss, Eyes: Negative for injury, jh7 pain, redness, and discharge, ENT: Negative for injury, pain, and discharge, Neck: Negative for injury, pain, and swelling, Abdomen/GI: Negative for abdominal pain, nausea, vomiting, diarrhea, and constipation, Back: Negative for injury and pain, MS/Extremity: Negative for injury and deformity, Skin: Negative for injury, rash, and discoloration, Neuro: Negative for headache, weakness, numbness, tingling, and seizure, 09:16 Cardiovascular: Positive for chest pain, orthopnea, 09:16 Respiratory: Positive for shortness of breath, at rest. 09:16 All other systems are negative, Exam: 09:16 Head/Face: Normocephalic, atraumatic. Eyes: Pupils equal round and reactive to light, jh7 extra-ocular motions intact. Lids and lashes normal. Conjunctiva and sclera are non-icteric and not injected. Cornea within normal limits. Periorbital areas with no swelling, redness, or edema. ENT: Nares patent. No nasal discharge, no septal abnormalities noted. Tympanic membranes are normal and external auditory canals are clear. Oropharynx with no redness, swelling, or masses, exudates, or evidence of obstruction, uvula midline. Mucous membranes moist. Neck: Trachea midline, no thyromegaly or masses palpated, and no cervical lymphadenopathy. Supple, full range of motion without nuchal rigidity, or vertebral point tenderness. No Meningismus. Cardiovascular: Regular rate and rhythm with a normal S1 and S2. No gallops, murmurs, or rubs. Normal PMI, no JVD. No pulse deficits. Abdomen/GI: Soft, non-tender, with normal bowel sounds. No distension or tympany. No guarding or rebound. No evidence of tenderness throughout. Back: No spinal tenderness. No costovertebral tenderness. Full range of motion. Skin: Warm, dry with normal turgor. Normal color with no rashes, no lesions, and no evidence of cellulitis. MS/ Extremity: Pulses equal, no cyanosis. Neurovascular intact. Full, normal range of motion. Neuro: Awake and alert, GCS 15, oriented to person, place, time, and situation. 09:16 Constitutional: The patient appears alert, awake, in obvious pain, 09:16 Respiratory: mild respiratory distress is noted, Respirations: labored breathing, that is mild, Breath sounds: decreased breath sounds, that are mild, are heard in the left posterior upper lobe and left posterior lower lobe, Absent breath sounds noted on the right chest secondary to lobectomy., Vital Signs: 09:16 BP 155 / 52; Pulse 93; Resp 18; Temp 97.7(O); Pulse Ox 96% on 5 lpm NC; Weight 68.04 hb kg; Height 5 ft. 5 in. ; Pain 9/10; 10:05 BP 140 / 80; Pulse 90; Resp 18; Pulse Ox 100% on 5 lpm NC; mb9 11:49 BP 126 / 79; Pulse 95; Resp 18; Pulse Ox 99% on 5 lpm NC; iw 12:57 BP 116 / 83; Pulse 89; Resp 16; Pulse Ox 100% on 5 lpm NC; mb9 09:16 Body Mass Index 24.96 (68.04 kg, 165.1 cm) hb 09:16 Pain Scale: Adult hb MDM: 09:11 Patient medically screened. [facility] 11:00 ED course: The patient declined CTA due to having a PET scan and a CT last week. States [facility] that he just wants medicine for pain and will follow-up with his doctor next week.. 12:54 Differential diagnosis: bronchitis, pneumonia Lung cancer, pulmonary embolism, [facility] pulmonary edema, acute [place]. Data reviewed: vital signs, nurses notes, lab test result(s), EKG, radiologic studies, plain films. I considered the following discharge prescriptions or medication management in the emergency department Medications were administered in the Emergency Department. See MAR. Independent interpretation of the following test(s) in the Emergency Department EKG: See my EKG interpretation above. Historians other than the Patient: Daughter/Son: Son. Counseling: I had a detailed discussion with the patient and/or guardian regarding the historical points, exam findings, and any diagnostic results supporting the discharge/admit diagnosis, to return to the emergency department if symptoms worsen or persist or if there are any questions or concerns that arise at home. Response to treatment: the patient's symptoms have markedly improved after treatment. 04/15 09:19 Order name: Basic Metabolic Panel; Complete Time: 10: [facility] 04/15 09:19 Order name: CBC with Diff; Complete Time: : [facility] 04/15 09:19 Order name: LFT's; Complete Time: 10: [facility] 04/15 09:19 Order name: Magnesium; Complete Time: : [facility] 04/15 09:19 Order name: NT PRO-BNP; Complete Time: : [facility] 04/15 09:19 Order name: PT-INR; Complete Time: 10:29 [facility] 04/15 09:19 Order name: Troponin HS; Complete Time: 10:29 [facility] 04/15 09:19 Order name: XRAY Chest (1 view); Complete Time: 12:54 [facility] 04/15 09:19 Order name: EKG; Complete Time: 09:20 [facility] 04/15 09:19 Order name: Cardiac monitoring; Complete Time: 09:20 [facility] 04/15 09:19 Order name: EKG - Nurse/Tech; Complete Time: 09:35 [facility] 04/15 09:19 Order name: IV Saline Lock; Complete Time: 09:35 [facility] 04/15 09:19 Order name: Labs collected and sent; Complete Time: 09:35 [facility] 04/15 09:19 Order name: O2 Per Protocol; Complete Time: 09:20 [facility] 04/15 09:19 Order name: O2 Sat Monitoring; Complete Time: 09:20 [facility] 04/15 09:49 Order name: Labs - recollect needed: recollect chemistries and coag tube per Phyllis eb hemolyzed; Complete Time: 09:57 EC:27 Rate is 93 beats/min. Rhythm is regular. QRS [place] is Normal. NC interval is normal at [facility] 144 msec. QRS interval is normal at 78 msec. QT interval is normal at 352 msec. No Q waves. T waves are Normal. No ST changes noted. Clinical impression: Normal ECG. Administered Medications: 09:34 Drug: DuoNeb Nebulize (2.5 mg - 0.5 mg) 3 ml Nebulizer once Route: Nebulizer; mb9 09:47 Follow up: Response: No adverse reaction mb9 09:47 Drug: fentaNYL (PF) IVP 50 mcg IVP once Route: IVP; Site: right forearm; mb9 09:50 Follow up: Response: No adverse reaction mb9 12:07 Drug: HYDROmorphone IVP 1 mg IVP once Route: IVP; Site: right antecubital; iw 12:45 Follow up: Response: No adverse reaction mb9 Disposition: 04/16 09:03 Co-signature as Attending Physician, Arturo Lake MD I reviewed the patient's care rn provided by the Advanced Practice Provider and agree with the diagnosis and treatment plan. Disposition Summary: 04/15/23 12:55 Discharge Ordered Notes: Location: Home [facility] Problem: chronic [facility] Symptoms: have improved [facility] Condition: Stable [facility] Diagnosis - Lung cancer [facility] - Chest pain on breathing [facility] Followup: [facility] - With: Private Physician - When: 2 - 3 days - Reason: Recheck today's complaints Forms: - Medication Reconciliation Form [facility] - Thank You Letter [facility] - Antibiotic Education [facility] - Prescription Opioid Use [facility] - Patient Portal Instructions [facility] - Leadership Thank You Letter [facility] Signatures: Dispatcher [employer] EDAmanda Gooden, TRACI RN Arturo Good MD MD rn Baxter, Heather, RN RN Asya Dewey Jennifer, SOUND EFFECTS MANAGER SOUND EFFECTS MANAGER [facility] Amber Dave RN RN mb9 Corrections: (The following items were deleted from the chart) 04/15 10:58 10:36 Chest For PE Angio+CT.RAD.BRZ ordered. EDMS EDMS
[2023-04-15 13:19] VITALS: TEMP 97.7
[2023-04-15 13:24] VITALS: BP 116/83; O2SAT 100
--- NOTE | 2023-04-21 14:37 | EKG ---
Test Date: 2023-04-15 Test Time: 10:27:43 Specialty Therapist: MB MEASUREMENT RESULTS: Intervals: Rate: 93 NM: 144 QRSD: 78 QT: 352 QTc: 437 [place]: P: 28 NM: 144 QRS: 46 T: 31 INTERPRETIVE STATEMENTS: Normal sinus rhythm Normal ECG Compared to ECG 08/27/2022 21:16:08 No significant changes Electronically Signed On 04-21-23 14:18:55 SPEECH CORRECTION CONSULTANT by Nico Hardin
== END 2023-04-15 13:08 | disposition home or self-care (01) ==
LOC: ER 09:08
DX: R07.1 Chest pain on breathing (principal); C34.90 Malignant neoplasm of unspecified part of unspecified bronchus or lung; Z90.2 Acquired absence of lung [part of]
CPT/HCPCS: 93005; 85025; 80048; 36415; 83735; 85610; 80076; 84484; 83880; 71045; 94640; 99285; J7613; J7644; J3010; J1170

== ENCOUNTER 2023-05-23 08:44 | Emergency (ER) | payer OTHER ==
[2023-05-23 09:26] LABS: Absolute Lymphocytes (CBC) 0.4 K/uL (0.7-4.9); Hematocrit 38.2 % (39.6-49.0); Lymphocytes % 6.7 % (15.3-44.8); MCV 89.6 fL (80-100); MPV 7.3 fL (7.6-11.3); Platelets 337 thou/uL (152-406); RBC Red Blood Cell Count 4.26 M/uL (4.33-5.43)
[2023-05-23 09:32] LABS: Protime INR 1.07
[2023-05-23 09:44] LABS: Albumin 2.9 g/dL (3.4-5.0); Bilirubin Total 0.2 mg/dL (0.2-1.0); Potassium 3.8 mEq/L (3.5-5.1); Protein, Total 7.9 g/dL (6.4-8.2)
--- NOTE | 2023-05-23 10:13 | RAD REPORT ---
EXAM DESCRIPTION: Chloe Single View05/23/2023 9:36 am CLINICAL HISTORY: Shortness of breath COMPARISON: April 2023 FINDINGS: Mild progression of the opacification of the right hemithorax likely representing a combin ation of acute pulmonary opacities, chronic opacities and mass. Minimal progression in left lung opacities. Heart remains enlarged
--- NOTE | 2023-05-23 11:11 | RAD REPORT ---
EXAM DESCRIPTION: CT - Chest For Pe Angio - 05/23/2023 10:42 am CLINICAL HISTORY: Chest pain COMPARISON: March 2023 TECHNIQUE: Dynamically enhanced axial 3 mm thick images of the chest were obtained during administra tion of 100 mL Isovue 370 IV contrast. Coronal and oblique reconstruction images were generated and r eviewed. Exam utilizes a protocol for optimal evaluation of pulmonary arterial tree. Maximum intensity projections 3D imaging was utilized All CT scans are performed using dose optimization technique as appropriate and may include automated exposure control or mA/KV adjustment according to patient size. FINDINGS: A pulmonary embolus is not seen. A thoracic aortic aneurysm is not noted. Minimal right pleural effusion. No pericardial effusion. Right lobectomy. Mostly chronic changes within the lungs bilaterally with mild to mild superimposed acute opacities. R ight chest wall mass and mediastinal lymphadenopathy left lung nodule 15 millimeters IMPRESSION: Negative for a pulmonary embolism.
--- NOTE | 2023-05-23 11:57 | EDPHYS ---
Physician Documentation [facility] Name: Ye Coleman Age: 68 yrs Sex: Male : 1955 Arrival Date: 05/23/2023 Time: 08:44 Bed 4 Private MD: ED Physician Den Chavez HPI: 05/23 11:29 This 68 yrs old Male presents to ER via Ambulatory with complaints of ms3 Shortness Of Breath. 11:29 68-year-old male with past medical history of lung cancer and neuropathy [place] [facility] [place] for shortness of breath that has been ongoing for 2 weeks. Patient denies fevers or vomiting. Patient endorses nausea. Patient states his last radiation treatment was last week. Patient denies alleviating or inciting factors. Patient notes he is having right-sided chest pain that he rates a 4/10. Historical: - Allergies: 08:58 No Known Allergies; hb - PMHx: 08:58 Lung Cancer; neuropathy; hb - PSHx: 08:58 Appendectomy; Partial lobectomy - right upper lobe; hb - Immunization history:: Adult Immunizations up to date. - Social history:: Smoking status: Patient denies any tobacco usage or history of. ROS: 11:29 Constitutional: Negative for fever, and chills. Neck: Negative for injury, pain, and ms3 swelling, 11:29 Abdomen/GI: Negative for abdominal pain, nausea, vomiting, diarrhea, and constipation, MS/Extremity: Negative for injury and deformity, Skin: Negative for injury, rash, and discoloration, 11:29 Cardiovascular: Positive for chest pain, 11:29 Respiratory: Positive for shortness of breath, 11:29 All other systems are negative, Exam: 11:29 Constitutional: This is a well developed, well nourished patient who is awake, alert, ms3 and in no acute distress. Head/Face: Normocephalic, atraumatic. Chest/axilla: Normal chest wall appearance and motion. Nontender with no deformity. Cardiovascular: Regular rate and rhythm with a normal S1 and S2. No gallops, murmurs, or rubs. Normal PMI, no JVD. No pulse deficits. 11:29 Respiratory: mild respiratory distress is noted, Respirations: labored breathing, that is mild, Breath sounds: rales, that are moderate, are heard in the right posterior upper lobe, left posterior lower lobe, right posterior middle lobe and right posterior lower lobe, Vital Signs: 08:55 BP 123 / 76; Pulse 100; Resp 23; Temp 97.8(O); Pulse Ox 100% on R/A; Weight 65.77 kg; hb Height 5 ft. 5 in. ; Pain 5/10; 09:02 BP 123 / 76; Pulse 97; Resp 25; Pulse Ox 100% on 5 lpm NC; ld1 09:28 BP 108 / 96; Pulse 94; Resp 19; Pulse Ox 100% on R/A; ld1 10:06 BP 117 / 76; Pulse 90; Resp 18; Pulse Ox 100% on 5 lpm NC; ld1 10:48 BP 130 / 75; Pulse 90; Resp 19; Pulse Ox 100% on R/A; ld1 12:16 BP 126 / 86; Pulse 93; Resp 20; Pulse Ox 100% on R/A; ld1 08:55 Body Mass Index 24.13 (65.77 kg, 165.1 cm) hb 08:55 Pain Scale: Adult hb MDM: 08:57 Patient medically screened. ms3 11:29 Differential diagnosis: pneumonia, pulmonary edema, Pulmonary Embolism Lung cancer. ms3 11:56 Data reviewed: vital signs, nurses notes, lab test result(s), radiologic studies, and ms3 as a result, I will admit patient. Consideration of Admission/Observation Patient was admitted/placed on observation. Management of patient was discussed with the following: Hospitalist: Discussed case with Dr Haynes and he accepts admission. All questions answered.. 12:23 Independent interpretation of the following test(s) in the Emergency Department X-Ray: ms3 My interpretation is Chest x-ray image reviewed by me shows opacification of right lung with left pleural effusion. Historians other than the Patient: Family Member: . Counseling: I had a detailed discussion with the patient and/or guardian regarding the historical points, exam findings, and any diagnostic results supporting the discharge/admit diagnosis, lab results, radiology results, the need for outpatient follow up, to return to the emergency department if symptoms worsen or persist or if there are any questions or concerns that arise at home. Refusal of service: The patient/guardian displays adequate decision making capability and despite a detailed discussion of alternatives, benefits, risks, and consequences refuses: Admission to the hospital for further work-up and treatment. ED course: Patient states he would like to be discharged home after discussion with Dr. Haynes. Discussed risks of discharge with patient and his granddaughter. They understand and agree rest to include or disability. On reevaluation patient is 97% on 5 L nasal cannula. Patient given prescription for prednisone and azithromycin. All questions were answered.. 05/23 08:58 Order name: Blood Culture Adult (2) ms3 05/23 08:58 Order name: CBC with Diff; Complete Time: 10:02 ms3 05/23 08:58 Order name: CMP; Complete Time: 10:02 ms3 05/23 08:58 Order name: Lactate w/ 2H reflex if indic.; Complete Time: 10:02 ms3 05/23 08:58 Order name: Protime (+inr); Complete Time: 10:02 ms3 05/23 08:58 Order name: Ptt, Activated; Complete Time: 10:02 ms3 05/23 09:20 Order name: Troponin HS; Complete Time: 10:02 ms3 05/23 08:58 Order name: Chest Single View XRAY; Complete Time: 10:18 ms3 05/23 10:23 Order name: CT Chest For PE Angio; Complete Time: 11:20 ms3 05/23 08:58 Order name: EKG; Complete Time: 08:59 ms3 05/23 08:58 Order name: Accucheck; Complete Time: 09:02 ms3 05/23 08:58 Order name: Cardiac monitoring; Complete Time: 09:02 ms3 05/23 08:58 Order name: EKG - Nurse/Tech; Complete Time: 09:28 ms3 05/23 08:58 Order name: IV Saline Lock - Large Bore; Complete Time: 09:18 ms3 05/23 08:58 Order name: Labs collected and sent; Complete Time: 09:18 ms3 05/23 08:58 Order name: O2 Per Protocol; Complete Time: 09:02 ms3 05/23 08:58 Order name: O2 Sat Monitoring; Complete Time: 09:02 ms3 05/23 08:58 Order name: Vital Signs; Complete Time: 09:02 ms3 05/23 09:20 Order name: IV Saline Lock; Complete Time: 09:27 ms3 Administered Medications: No medications were administered Disposition Summary: 05/23/23 12:18 Discharge Ordered Notes: Location: Home(05/23/23 12:18) ms3 Condition: Stable(05/23/23 12:18) ms3 Diagnosis - Shortness of breath(05/23/23 12:18) ms3 - Lung Cancer ms3 Followup: ms3 - With: Genna Mclean MD - When: 2 - 3 days - Reason: Recheck today's complaints Discharge Instructions: - Discharge Summary Sheet ms3 - Shortness of Breath, Adult ms3 - Lung Cancer ms3 Forms: - Medication Reconciliation Form ms3 - Thank You Letter ms3 - Antibiotic Education ms3 - Prescription Opioid Use ms3 - Patient Portal Instructions ms3 - Leadership Thank You Letter ms3 Prescriptions: - azithromycin 250 mg Oral tablet - take 1 dose pack ORAL route as directed on dose pack For 250 mg dose pack: take ms3 500 mg today (day 1), then 250 mg for 4 days (days 2-5); 6 tablet; Refills: 0, Product Selection Permitted - Prednisone 20 mg Oral Tablet - take 2 tablets ORAL route once daily for 5 days; 10 tablet; Refills: 0, Product ms3 Selection Permitted Signatures: Dispatcher [employer] EDMS Colleen Newell RN RN Den Nguyen DO DO ms3 Corrections: (The following items were deleted from the chart) 12:16 11:56 Inpatient Admission ms3 ms3 12:16 11:56 Katya Haynes ms3 ms3 12:16 11:56 Telemetry/MedSurg (observation) ms3 ms3 12:16 11:56 Stable ms3 ms3 12:16 11:56 new ms3 ms3 12:16 11:56 are unchanged ms3 ms3 12:16 11:56 Standard ms3 ms3 12:16 11:56 ms3 ms3 12:16 11:56 Lung Cancer ms3 ms3 12:16 11:56 Shortness of breath ms3 ms3
--- NOTE | 2023-05-23 11:57 | ER ---
Nurse's Notes [facility] Name: Ye Coleman Age: 68 yrs Sex: Male : 1955 Arrival Date: 05/23/2023 Time: 08:44 Bed 4 Private MD: Diagnosis: Shortness of breath;Lung Cancer Presentation: 05/23 08:55 Chief complaint: Worsening SOB, subjective fever, right sided chest pain that radiates hb to right mid back, and productive cough with yellow sputum x 3-4 days. On 5L home O2. Has lung cancer, last radiation treatment was last week. Sees Dr. Tafoya and Dr. Royal. Coronavirus screen: Client presents with at least one sign or symptom that may indicate coronavirus-19. Provider contacted for isolation considerations. Ebola Screen: No symptoms or risks identified at this time. Initial Sepsis Screen: Does the patient meet any 2 criteria? RR > 20 per min. HR > 90 bpm. No. Patient's initial sepsis screen is negative. Does the patient have a suspected source of infection? Yes:. Risk Assessment: Do you want to hurt yourself or someone else? Patient reports no desire to harm self or others. Onset of symptoms was May 20, 2023. 08:55 Method Of Arrival: Ambulatory hb 08:55 Acuity: EDMOND 2 hb Historical: - Allergies: 08:58 No Known Allergies; hb - PMHx: 08:58 Lung Cancer; neuropathy; hb - PSHx: 08:58 Appendectomy; Partial lobectomy - right upper lobe; hb - Immunization history:: Adult Immunizations up to date. - Social history:: Smoking status: Patient denies any tobacco usage or history of. Screenin:28 [facility] ED Fall Risk Assessment (Adult) History of falling in the last 3 months, ld1 including since admission No falls in past 3 months (0 pts). Abuse screen: Denies threats or abuse. Denies injuries from another. Nutritional screening: No deficits noted. Tuberculosis screening: No symptoms or risk factors identified. Assessment: 08:57 Reassessment: CODE SEPSIS CALLED. hb 09:28 General: Appears in no apparent distress. uncomfortable, Behavior is calm, cooperative, ld1 appropriate for age. Pain: Denies pain. Neuro: Level of Consciousness is awake, alert, obeys commands, Oriented to person, place, time, situation. Cardiovascular: Capillary refill < 3 seconds Patient's skin is warm and dry. Rhythm is sinus rhythm. Respiratory: Airway is patent Respiratory effort is even, labored, Breath sounds with wheezes bilaterally. GI: Abdomen is flat, non-distended. : No signs and/or symptoms were reported regarding the genitourinary system. EENT: No signs and/or symptoms were reported regarding the EENT system. Derm: No signs and/or symptoms reported regarding the dermatologic system. Musculoskeletal: No signs and/or symptoms reported regarding the musculoskeletal system. 10:06 Reassessment: Patient appears in no apparent distress at this time. No changes from ld1 previously documented assessment. 10:48 Reassessment: Patient appears in no apparent distress at this time. No changes from ld1 previously documented assessment. 12:16 Reassessment: Patient appears in no apparent distress at this time. No changes from ld1 previously documented assessment. Patient and/or family updated on plan of care and expected duration. Pain level reassessed. Patient is alert, oriented x 3, equal unlabored respirations, skin warm/dry/pink. 12:55 Reassessment: ERP at bedside discussing results with patient and family. Denies ld1 concerns at this time. Results given to patient and family. Vital Signs: 08:55 BP 123 / 76; Pulse 100; Resp 23; Temp 97.8(O); Pulse Ox 100% on R/A; Weight 65.77 kg; hb Height 5 ft. 5 in. ; Pain 5/10; 09:02 BP 123 / 76; Pulse 97; Resp 25; Pulse Ox 100% on 5 lpm NC; ld1 09:28 BP 108 / 96; Pulse 94; Resp 19; Pulse Ox 100% on R/A; ld1 10:06 BP 117 / 76; Pulse 90; Resp 18; Pulse Ox 100% on 5 lpm NC; ld1 10:48 BP 130 / 75; Pulse 90; Resp 19; Pulse Ox 100% on R/A; ld1 12:16 BP 126 / 86; Pulse 93; Resp 20; Pulse Ox 100% on R/A; ld1 08:55 Body Mass Index 24.13 (65.77 kg, 165.1 cm) hb 08:55 Pain Scale: Adult hb ED Course: 08:45 Patient arrived in ED. im 08:51 Chavez, Den, DO is Attending Physician. ms3 08:58 Triage completed. hb 09:18 Blood Culture Adult (2) Sent. bc6 09:18 CBC with Diff Sent. bc6 09:18 CMP Sent. bc6 09:18 Lactate w/ 2H reflex if indic. Sent. bc6 09:18 Protime (+inr) Sent. bc6 09:18 Ptt, Activated Sent. bc6 09:18 Inserted saline lock: 20 gauge in right antecubital area, using aseptic technique. bc6 Blood collected. 09:28 Maxine Chavez, RN is Primary Nurse. ld1 09:28 Lactate w/ 2H reflex if indic. Sent. ld1 09:28 Blood Culture Adult (2) Sent. ld1 09:28 CBC with Diff Sent. ld1 09:28 CMP Sent. ld1 09:28 Protime (+inr) Sent. ld1 09:28 Ptt, Activated Sent. ld1 09:28 Troponin HS Sent. ld1 09:28 No provider procedures requiring assistance completed. ld1 09:28 Patient has correct armband on for positive identification. Placed in gown. Bed in low ld1 position. Call light in reach. Side rails up X2. monitoring tech on. Pulse ox on. NIBP on. Door closed. Noise minimized. Warm blanket given. 09:38 Chest Single View XRAY In Process Unspecified. EDMS 10:44 CT Chest For PE Angio In Process Unspecified. EDMS 11:56 Katya Haynes MD is Hospitalizing Provider. ms3 12:16 Genna Mclean MD is Referral Physician. ms3 13:05 IV discontinued, intact, bleeding controlled, No redness/swelling at site. ld1 13:06 Arm band placed on right wrist. ld1 Administered Medications: No medications were administered Medication: 09:28 VIS not applicable for this client. ld1 Outcome: 11:56 Decision to Hospitalize by Provider. ms3 12:18 Discharge ordered by . ms3 13:05 Discharged to home via wheelchair, with family, ld1 13:05 Condition: stable 13:05 Discharge instructions given to patient, family, Instructed on discharge instructions, follow up and referral plans. medication usage, Demonstrated understanding of instructions, follow-up care, medications, Prescriptions given X 2, 13:06 Patient left the ED. ld1 Signatures: Dispatcher [employer] EDMS Colleen Newell, RN RN hb Den Chavez DO DO ms3 Maxine Chavez RN RN ld1 Lidia Cagle 6 Saadia Hannon
--- NOTE | 2023-05-23 12:25 | P.CNS ---
Date of Consult: 05/23/23 Reason for Consult: Hypoxemia Requesting Physician: Den Chavez Chief Complaint: Shortness of breath History of Present Illness: Patient is a 68-year-old gentleman who came to the hospital with difficulty breathing. Patient had exertional dyspnea. Patient had diagnosed with lung cancer 2 years ago and had a lobectomy. Patient was supposed to follow-up for possible immunotherapy or chemotherapy, but patient has not followed. Patient ended up getting radiation. Patient is currently getting radiation at this time. Patient states her respiratory status has not improved. Patient came into the ER for further evaluation. In the ER patient was hypoxic. I talked to the family-granddaughter who translated-at length. We talked about hospice care as well. Patient does not want to stay in the hospital and he will probably leave AGAINST MEDICAL ADVICE. I did want to get patient set up with antibiotics and steroids prior to discharge. Will go ahead and make discharge arrangements. Allergies No Known Allergies Allergy (Verified 02/20/22 13:27) Home Medications: Aspirin [Aspirin EC 81 MG] 81 mg PO DAILY 30 Days #30 tablet. 06/15/21 predniSONE [Prednisone*] 20 mg PO SEECOM 14 Days #21 tab 06/15/21 - Past Medical/Surgical History Diabetic: No -: Metastatic lung cancer -: Right lower lobe lobectomy - Family History Father Family History: Reviewed- Non-Contributory - Social History Smoking Status: Unknown if ever smoked Alcohol use: Yes CD- Drugs: No Caffeine use: Yes Review of Systems 10-point ROS is otherwise unremarkable Physical Examination Reviewed General: Alert, In no apparent distress, Oriented x3 HEENT: Atraumatic, PERRLA, Mucous membr. moist/pink, EOMI, Sclerae nonicteric Neck: Supple, 2+ carotid pulse no bruit, No LAD, Without JVD or thyroid abnormality Respiratory: Diminished, Expiratory wheezes Cardiovascular: Regular rate/rhythm, Normal S1 S2 Gastrointestinal: Normal bowel sounds, Soft and benign, Non-distended, No tenderness Musculoskeletal: No tenderness Integumentary: No rashes Neurological: Normal tone, Sensation intact, Cranial nerves 3-12 intact, Normal affect, Abnormal gait, Abnormal strength Lymphatics: No axilla or inguinal lymphadenopathy Laboratory Data (last 24 hrs) 05/23/23 05/23/23 05/23/23 09:15 09:15 09:15 WBC 5.80 Hgb 12.7 L Hct 38.2 L Plt Count 337 PT 11.7 INR 1.07 APTT 30.0 Sodium 139 Potassium 3.8 BUN 12 Creatinine 0.70 Glucose 104 Total Bilirubin 0.2 AST 31 ALT 38 Alkaline Phosphatase 128 H - Problems (1) Metastatic lung cancer (metastasis from lung to other site) Current Visit: Yes Status: Acute (2) Acute respiratory failure with hypoxia Current Visit: No Status: Acute Conclusions/ Impression: Plan: 1. Continue with IV antibiotics-if patient is is going to discharge we will put him on oral antibiotics 2. Awaiting sputum and blood culture 3. Repeat chest x-ray 4. CT scan of the chest reviewed; extensive metastasis 5. Outpatient pulmonary consultation 6. Continue with nebs and steroids at discharge 7. O2 per protocol 8. Continue with gentle hydration; BNP and echocardiogram if patient stays 9. Repeat labs including CBC and renal function in a.m. 10. GI and DVT prophylaxis Critical Care: No Time Spent Managing Pts care (In Minutes): 40
[2023-05-23 14:34] VITALS: TEMP 97.8; O2SAT 100
[2023-05-23 14:49] VITALS: BP 126/86
== END 2023-05-23 13:06 | disposition home or self-care (01) ==
LOC: ER 08:44
DX: C34.90 Malignant neoplasm of unspecified part of unspecified bronchus or lung (principal); R07.89 Other chest pain; Z90.2 Acquired absence of lung [part of]
CPT/HCPCS: 93005; 87040 ×2; 85025; 36415; 85610; 83605; 85730; 84484; 80053; 71275; 71045; Q9967

== ENCOUNTER 2023-09-10 16:24 | Inpatient (IN) | payer OTHER ==
[2023-09-10] MEDS ORDERED: NA CHLORIDE 0.9% 250 ML ONE (16:43)
[2023-09-10] MEDS ORDERED: NA CHLORIDE 0.9% 1,000 ML ONE (16:43)
[2023-09-10] MEDS ORDERED: AZITHROMYCIN 500 MG INJ IVPB ONE (16:43)
[2023-09-10] MEDS ORDERED: CEFTRIAXONE 1000 MG/VIAL ONE (16:43)
[2023-09-10 16:52] LABS: Absolute Eosinophils 0.3 K/uL (0-0.5); Absolute Lymphocytes (CBC) 1.1 K/uL (0.7-4.9); Absolute Monocytes 1.2 K/uL (0.1-1.3); Absolute Neutrophil 5.6 K/uL (1.8-8.0); Basophils % 0.5 % (0-1.3); Eosinophils % 3.6 % (0-4.4); Hematocrit 40.4 % (39.6-49.0); Hemoglobin 13.6 g/dL (13.6-17.9); Lymphocytes % 13.4 % (15.3-44.8); MCH 30.1 pg (27.0-35.0); MCHC 33.5 g/dL (32.0-36.0); MCV 89.7 fL (80-100); MPV 7.4 fL (7.6-11.3); Monocytes % 14.8 % (3.3-12.3); Neutrophils % 67.7 % (41.7-73.7); Platelets 401 thou/uL (152-406); RBC Red Blood Cell Count 4.51 M/uL (4.33-5.43)
[2023-09-10 17:14] LABS: ALT/SGPT 29 U/L (16-61); AST/SGOT 28 U/L (15-37); Albumin 3.1 g/dL (3.4-5.0); Albumin/Globulin Ratio 0.6 (1.1-1.8); Alkaline Phosphatase 116 U/L (45-117); BUN Blood Urea Nitrogen 10 mg/dL (7-18); Bicarbonate 32 mEq/L (21-32); Bilirubin Total 0.2 mg/dL (0.2-1.0); Globulin 5.1 g/dL (2.3-3.5); Glomerular Filtration Rate 93 ml/min (=/>90); Glucose Level 111 mg/dL (74-106); NT PRO-BNP 78 pg/mL (<125); Protein, Total 8.2 g/dL (6.4-8.2); Sodium Level 137 mEq/L (136-145); Troponin High Sensitivity 5.5 pg/mL (<58.9)
[2023-09-10 17:16] LABS: Bilirubin Direct < 0.1 mg/dL (0-0.2); Bilirubin Indirect, Calculated ND mg/dL (0.2-0.8)
[2023-09-10 17:19] LABS: PT Prothrombin Time 11.4 SECONDS (9.5-12.5); PTT, Activated Partial Thromb 31.9 SECONDS (24.3-36.9); Protime INR 1.04
[2023-09-10 17:26] LABS: Albumin 2.6 g/dL (3.4-5.0); Albumin/Globulin Ratio 0.7 (1.1-1.8); Anion Gap 5.6 mEq/L (5.0-15.0); Bilirubin Total 0.2 mg/dL (0.2-1.0); Globulin 3.8 g/dL (2.3-3.5); Potassium 3.6 mEq/L (3.5-5.1); Protein, Total 6.4 g/dL (6.4-8.2)
--- NOTE | 2023-09-10 18:10 | RAD REPORT ---
EXAM DESCRIPTION: CT - Chest For Pe Angio - 09/10/2023 5:45 pm CLINICAL HISTORY: Chest pain COMPARISON: August 20, 2023 TECHNIQUE: Dynamically enhanced axial 3 mm thick images of the chest were obtained during administra tion of 100 mL Isovue 370 IV contrast. Coronal and oblique reconstruction images were generated and r eviewed. Exam utilizes a protocol for optimal evaluation of pulmonary arterial tree. Maximum intensity projections 3D imaging was utilized All CT scans are performed using dose optimization technique as appropriate and may include automated exposure control or mA/KV adjustment according to patient size. FINDINGS: Thrombus is present within the distal right main pulmonary artery and right upper lobe pul monary arterial branches. No left-sided pulmonary emboli A thoracic aortic aneurysm is not noted. A pleural effusion is not seen. A pericardial effusion is not seen. Left pulmonary nodules unchanged Right upper anterior soft tissue with rib involvement unchanged. Right hilar soft tissue unchanged. Mild progression in bilateral pulmonary opacities superimposed over chronic changes IMPRESSION: Right distal main and right upper lobe pulmonary emboli
--- NOTE | 2023-09-10 18:18 | RAD REPORT ---
EXAM DESCRIPTION: APRILMelody Single View09/10/2023 5:11 pm CLINICAL HISTORY: sob COMPARISON: August 20, 2023 FINDINGS: Right lobectomy. Chronic bilateral pulmonary opacities Right lung has become mildly hazier since the prior exam The patient's known pulmonary nodules are not well seen on this exam. Heart is normal size
--- NOTE | 2023-09-10 18:22 | EDPHYS ---
Physician Documentation [facility] Name: Ye Coleman Age: 68 yrs Sex: Male : 1955 Arrival Date: 09/10/2023 Time: 16:24 Bed 6 Private MD: ED Physician Den Chavez HPI: 09/09 16:32 This 68 yrs old Male presents to ER via Unassigned with complaints of ec2 Shortness Of Breath. 16:32 Patient with history of lung cancer, previous lung resection approximately a year ago ec2 arrives today for shortness of breath. Patient with baseline oxygen requirement, unsure what he is normally on, reports worsening shortness of breath, occasional cough. No fevers or chills, no nausea or vomiting.. Historical: - Allergies: 16:34 GABAPENTIN; db - PMHx: 16:34 Lung Cancer; neuropathy; db - PSHx: 16:34 Appendectomy; Partial lobectomy - right upper lobe; db - Immunization history:: Adult Immunizations unknown. - Infectious Disease History:: Denies. - Social history:: Smoking status: Patient/guardian denies using tobacco, but has a distant history of tobacco abuse. ROS: 16:32 Constitutional: as per hpi ec2 Exam: 16:32 Constitutional: GEN: NAD Head: atraumatic Eyes: EOMI Ears: External ears are ec2 normal. CV: Tachycardia LUNGS: Tachypnea, no wheezes or rales or rhonchi ABD: non-distended SKIN: no evidence of rashes MSK: no evidence of trauma NEURO: moves all extremities equally Vital Signs: 16:32 BP 138 / 101; Pulse 115; Resp 32; Temp 97.3(TE); Pulse Ox 88% on 2 lpm NC; Weight 63.5 db kg; Height 5 ft. 5 in. ; 17:00 BP 106 / 77; Pulse 106; Resp 32; Pulse Ox 99% ; db 17:26 BP 106 / 77; Pulse 104; Pulse Ox 100% ; ec2 18:30 BP 100 / 85; Pulse 88; Resp 16; Pulse Ox 100% on 4 lpm NC; db 20:16 BP 120 / 79; Pulse 87; Resp 20; Temp 98; Pulse Ox 98% on 5 lpm NC; rv 16:32 Body Mass Index 23.30 (63.50 kg, 165.1 cm) db [place] Coma Score: 20:16 Eye Response: spontaneous(4). Motor Response: obeys commands(6). Verbal Response: rv oriented(5). Total: 15. MDM: 16:31 Patient medically screened. ec2 16:32 Data reviewed: vital signs. ED course: Patient arrives today for evaluation of ec2 shortness of breath. Examination remarkable for tachypneic individual who has some increased work of breathing. Will obtain lab work, EKG, chest x-ray as well as CT scan of the chest. Evaluate for ACS, electrolyte disturbances, PE.. 16:38 ED course: EKG obtained, independently reviewed and interpreted by me, shows sinus ec2 tachycardia, rate 110, no acute ST segment elevations, nonconcerning intervals.. 17:33 ED course: Metabolic profile is reassuring, LFTs unremarkable, lactate within normal ec2 ranges, troponin within normal ranges, BNP within normal ranges. Pending CT scan of the chest. . 17:46 Transition of care: After a detail discussion of the patient's case, care is ec2 transferred to Den Chavez DO. ED course: Patient signed out to physician with pending CT scan of the chest and admission. 18:42 Differential diagnosis: Anemia Pneumothorax pulmonary edema, Pulmonary Embolism. ms3 Consideration of Admission/Observation Patient was admitted/placed on observation. Management of patient was discussed with the following: Hospitalist: Dr Leavitt. I considered the following discharge prescriptions or medication management in the emergency department Medications were administered in the Emergency Department. See MAR. Independent interpretation of the following test(s) in the Emergency Department X-Ray: My interpretation is CXR image reviewed by me showed opacification of right lung. Counseling: I had a detailed discussion with the patient and/or guardian regarding the historical points, exam findings, and any diagnostic results supporting the discharge/admit diagnosis, lab results, radiology results, the need for further work-up and treatment in the hospital. Transition of care: Care assumed from Joaquin Pace MD. ED course: Discussed labs and imaging with patient and his daughter. They understand/ agree with plan for admission.. 04 16:31 Order name: Basic Metabolic Panel; Complete Time: 17:32 ec2 09/09 16:31 Order name: CBC with Diff; Complete Time: 17:03 ec2 09/09 16:31 Order name: LFT's; Complete Time: 17:32 ec2 09/09 16:31 Order name: NT PRO-BNP; Complete Time: 17:32 ec2 09/09 16:31 Order name: Troponin HS; Complete Time: 17:32 ec2 09/09 16:37 Order name: Blood Culture Adult (2) ec2 09/09 16:37 Order name: CMP; Complete Time: 17:32 ec2 09/09 16:37 Order name: Lactate w/ 2H reflex if indic.; Complete Time: 17:32 ec2 09/09 16:37 Order name: Protime (+inr); Complete Time: 17:32 ec2 09/09 16:37 Order name: Ptt, Activated; Complete Time: 17:32 ec2 09/09 19:21 Order name: Urinalysis w/ reflexes EDMS 09/09 19:21 Order name: CBC with Automated Diff EDMS 09/09 19:21 Order name: CBC with Automated Diff EDMS 09/09 19:21 Order name: Comprehensive Metabolic Panel EDMS 09/09 19:21 Order name: Comprehensive Metabolic Panel EDMS 09/09 16:31 Order name: XRAY Chest (1 view) ec2 09/09 16:31 Order name: CT Chest For PE Angio; Complete Time: 18:12 ec2 09/09 19:23 Order name: Echo with Doppler EDMS 09/09 16:37 Order name: EKG; Complete Time: 16:37 ec2 09/09 16:31 Order name: Cardiac monitoring; Complete Time: 16:38 ec2 09/09 16:31 Order name: EKG - Nurse/Tech; Complete Time: 16:51 ec2 09/09 16:31 Order name: IV Saline Lock; Complete Time: 18:35 ec2 09/09 16:31 Order name: Labs collected and sent; Complete Time: 18:35 ec2 09/09 16:31 Order name: O2 Per Protocol; Complete Time: 16:38 ec2 09/09 16:31 Order name: O2 Sat Monitoring; Complete Time: 16:38 ec2 09/09 16:37 Order name: Accucheck; Complete Time: 17:42 ec2 09/09 16:37 Order name: IV Saline Lock - Large Bore; Complete Time: 16:47 ec2 09/09 16:37 Order name: Vital Signs; Complete Time: 16:41 ec2 Administered Medications: 17:00 Drug: Rocephin IV 1 grams IV at calculated rate once; Given slow IV push per pharmacy ko1 instructions Route: IV; Rate: calculated rate; Site: right forearm; 20:17 Follow up: Response: No adverse reaction; IV Status: Completed infusion rv 17:00 Drug: AZITHromycin IVPB 500 mg IVPB once over 1 hrs; (mix in 250 mL NS) Route: IVPB; ko1 Infused Over: 1 hrs; Site: right forearm; 20:17 Follow up: Response: No adverse reaction; IV Status: Completed infusion; IV Intake: rv 250ml 17:00 Drug: NS 0.9% IV 1000 ml IV at 1 bolus Per protocol; 1000 mL bolus Route: IV; Rate: 1 ko1 bolus; Site: right forearm; 20:17 Follow up: IV Status: Completed infusion; IV Intake: 1000ml rv 18:35 Drug: Enoxaparin Sub-Q 1 mg/kg Sub-Q once Route: Sub-Q; Site: right lower abdomen; db 20:17 Follow up: Response: No adverse reaction rv Disposition Summary: 09/10/23 18:21 Hospitalization Ordered Notes: Hospitalization Status: Observation ms3 Provider: Aravind Leavitt ms3 Location: Telemetry/MedSurg (observation) ms3 Condition: Fair ms3 Problem: new ms3 Symptoms: are unchanged ms3 Bed/Room Type: Standard ms3 Room Assignment: 427(09/10/23 19:46) Diagnosis - Pulmonary embolism without acute cor pulmonale ms3 - Chronic respiratory failure with hypoxia ms3 Forms: - Medication Reconciliation Form ms3 - SBAR form ms3 - Leadership Thank You Letter ms3 Signatures: Dispatcher [employer] Lyly Bey, RN TRACI cg Den Chavez DO DO ms3 Roxi Cardozo RN RN ko1 Leatha Juarez RN RN db Joaquin Pace MD MD ec2 Charan Mcclellan RN rv Corrections: (The following items were deleted from the chart) 16:32 16:32 BASIC METABOLIC PANEL+C.LAB.BRZ ordered. EDMS EDMS 16:32 16:32 CBC+H.LAB.BRZ ordered. EDMS EDMS 16:32 16:32 HEPATIC FUNCTION+C.LAB.BRZ ordered. EDMS EDMS 16:32 16:32 PROBNP+C.LAB.BRZ ordered. EDMS EDMS 16:32 16:32 Troponin High Sensitivity+C.LAB.BRZ ordered. EDMS EDMS 16:32 16:32 Chest Single View+RAD.RAD.BRZ ordered. EDMS EDMS 16:32 16:32 Chest For PE Angio+CT.RAD.BRZ ordered. EDMS EDMS 19:46 18:21 ms3 cg
--- NOTE | 2023-09-10 18:22 | ER ---
Nurse's Notes [facility] Name: Ye Coleman Age: 68 yrs Sex: Male : 1955 Arrival Date: 09/10/2023 Time: 16:24 Bed 6 Private MD: Diagnosis: Pulmonary embolism without acute cor pulmonale;Chronic respiratory failure with hypoxia Presentation: 09/09 16:32 Chief complaint: Patient states: SHORTNESS OF BREATH, HX OF LUNG CANCER. LUNG RESECTION db 1 YEAR AGO. Coronavirus screen: Client denies travel out of the [place] in the last 14 days. At this time, the client does not indicate any symptoms associated with coronavirus-19. Ebola Screen: Patient negative for fever greater than or equal to 101.5 degrees Fahrenheit, and additional compatible Ebola Virus Disease symptoms Patient denies exposure to infectious person. Patient denies travel to an Ebola-affected area in the 21 days before illness onset. No symptoms or risks identified at this time. Initial Sepsis Screen: Does the patient meet any 2 criteria? No. Patient's initial sepsis screen is negative. Does the patient have a suspected source of infection? No. Patient's initial sepsis screen is negative. Risk Assessment: Do you want to hurt yourself or someone else? Patient reports no desire to harm self or others. Onset of symptoms was September 10, 2023. 16:32 Method Of Arrival: Wheelchair db 16:32 Acuity: EDMOND 2 db Triage Assessment: 16:34 General: Appears distressed, uncomfortable, Behavior is cooperative. Pain: Denies pain. db Neuro: Level of Consciousness is awake, alert, obeys commands, Oriented to person, place, time, situation. Respiratory: Reports shortness of breath at rest on exertion Airway is patent Respiratory effort is even, labored, Respiratory pattern is regular, symmetrical, Onset: The symptoms/episode began/occurred gradually, the patient has moderate shortness of breath. Historical: - Allergies: 16:34 GABAPENTIN; db - PMHx: 16:34 Lung Cancer; neuropathy; db - PSHx: 16:34 Appendectomy; Partial lobectomy - right upper lobe; db - Immunization history:: Adult Immunizations unknown. - Infectious Disease History:: Denies. - Social history:: Smoking status: Patient/guardian denies using tobacco, but has a distant history of tobacco abuse. Screenin:59 [facility] ED Fall Risk Assessment (Adult) History of falling in the last 3 months, db including since admission No falls in past 3 months (0 pts) Confusion or Disorientation No (0 pts) Intoxicated or Sedated No (0 pts) Impaired Gait No (0 pts) Mobility Assist Device Used No (0 pt) Altered Elimination No (0 pt) Score/Fall Risk Level 0 - 2 = Low Risk Oriented to surroundings, Maintained a safe environment. Abuse screen: Denies threats or abuse. Denies injuries from another. Nutritional screening: No deficits noted. Tuberculosis screening: No symptoms or risk factors identified. Assessment: 16:58 Reassessment: Patient appears in no apparent distress at this time. Patient and/or db family updated on plan of care and expected duration. Pain level reassessed. Patient is alert, oriented x 3, equal unlabored respirations, skin warm/dry/pink. General: Appears in no apparent distress. comfortable, Behavior is calm, cooperative. Pain: Denies pain. Neuro: Level of Consciousness is awake, alert, obeys commands, Oriented to person, place, time, situation. Cardiovascular: Rhythm is regular. Respiratory: Airway is patent Respiratory effort is even, unlabored, Respiratory pattern is regular, symmetrical. 17:30 Reassessment: Patient appears in no apparent distress at this time. Patient and/or db family updated on plan of care and expected duration. Pain level reassessed. Patient is alert, oriented x 3, equal unlabored respirations, skin warm/dry/pink. Respiratory: Breath sounds are diminished. 18:30 Reassessment: Patient appears in no apparent distress at this time. Patient and/or db family updated on plan of care and expected duration. Pain level reassessed. Patient is alert, oriented x 3, equal unlabored respirations, skin warm/dry/pink. 20:15 Reassessment: report faxed and received by Jocelyne AVILES. rv Vital Signs: 16:32 BP 138 / 101; Pulse 115; Resp 32; Temp 97.3(TE); Pulse Ox 88% on 2 lpm NC; Weight 63.5 db kg; Height 5 ft. 5 in. ; 17:00 BP 106 / 77; Pulse 106; Resp 32; Pulse Ox 99% ; db 17:26 BP 106 / 77; Pulse 104; Pulse Ox 100% ; ec2 18:30 BP 100 / 85; Pulse 88; Resp 16; Pulse Ox 100% on 4 lpm NC; db 20:16 BP 120 / 79; Pulse 87; Resp 20; Temp 98; Pulse Ox 98% on 5 lpm NC; rv 16:32 Body Mass Index 23.30 (63.50 kg, 165.1 cm) db Aletha Coma Score: 20:16 Eye Response: spontaneous(4). Motor Response: obeys commands(6). Verbal Response: rv oriented(5). Total: 15. ED Course: 16:31 Patient arrived in ED. ec2 16:31 Joaquin Pace MD is Attending Physician. ec2 16:32 Leatha Juarez, TRACI is Primary Nurse. db 16:34 Triage completed. db 16:34 Arm band placed on Patient placed in an exam room. db 16:35 First set of blood cultures drawn by me. db 16:38 Inserted saline lock: 20 gauge in right antecubital area, using aseptic technique. db Blood collected. 16:40 Radiology exam delayed due to IV insertion attempt and/or patient not having nj appropriate IV at this time. 16:45 Provided Education on: LABS AND ADMISSION. db 16:47 Patient has correct armband on for positive identification. Bed in low position. Call db light in reach. Side rails up X 1. Client placed on continuous cardiac and pulse oximetry monitoring. NIBP monitoring applied. teletypesetter monitor on. Pulse ox on. NIBP on. Warm blanket given. 16:47 Initial lab(s) drawn, by me, sent to lab. db 16:48 Radiology exam delayed due to lab results not completed at this time. (BUN/Creatinine). nj 16:50 Second set of blood cultures drawn by me. db 16:51 EKG done, by ED staff, reviewed by Joaquin Pace MD. em1 17:13 XRAY Chest (1 view) In Process Unspecified. EDMS 17:[address] db 17:46 Attending Physician role handed off by Joaquin Pace MD ec2 17:46 Den Chavez DO is Attending Physician. ec2 17:47 CT Chest For PE Angio In Process Unspecified. EDMS 18:21 Aravind Leavitt MD is Hospitalizing Provider. ms3 20:15 No provider procedures requiring assistance completed. Patient admitted, IV remains in rv place. Administered Medications: 17:00 Drug: Rocephin IV 1 grams IV at calculated rate once; Given slow IV push per pharmacy ko1 instructions Route: IV; Rate: calculated rate; Site: right forearm; 20:17 Follow up: Response: No adverse reaction; IV Status: Completed infusion rv 17:00 Drug: AZITHromycin IVPB 500 mg IVPB once over 1 hrs; (mix in 250 mL NS) Route: IVPB; ko1 Infused Over: 1 hrs; Site: right forearm; 20:17 Follow up: Response: No adverse reaction; IV Status: Completed infusion; IV Intake: rv 250ml 17:00 Drug: NS 0.9% IV 1000 ml IV at 1 bolus Per protocol; 1000 mL bolus Route: IV; Rate: 1 ko1 bolus; Site: right forearm; 20:17 Follow up: IV Status: Completed infusion; IV Intake: 1000ml rv 18:35 Drug: Enoxaparin Sub-Q 1 mg/kg Sub-Q once Route: Sub-Q; Site: right lower abdomen; db 20:17 Follow up: Response: No adverse reaction rv Medication: 20:16 VIS not applicable for this client. rv Intake: 20:17 IV: 1000ml; Total: 1000ml. rv 20:17 IV: 250ml; Total: 1250ml. rv Outcome: 18:21 Decision to Hospitalize by Provider. ms3 20:15 Admitted to Tele accompanied by nurse, accompanied by tech, via wheelchair, room 427, rv with oxygen, with chart, 20:15 Condition: good 20:15 Instructed on the need for admit, 21:08 Patient left the ED. rv Signatures: Dispatcher [employer] Curry Pablo emNaeem Del Angel Ronaldo, RN RN rv Den Chavez DO DO ms3 Roxi Cardozo RN RN ko1 Leatha Juarez RN RN db Joaquin Pace MD MD ec2 Corrections: (The following items were deleted from the chart) 16:34 16:32 Onset of symptoms is unknown. db db
[2023-09-10] MEDS ORDERED: ENOXAPARIN 60 MG/0.6 ML SQ ONE (18:28)
--- NOTE | 2023-09-10 19:14 | P.HP ---
Certification for Inpatient Patient admitted to: Inpatient With expected LOS: >2 Midnights Patient will require the following post-hospital care: None Practitioner: I am a practitioner with admitting privileges, knowledge of patient current condition, hospital course, and medical plan of care. Services: Services provided to patient in accordance with Admission requirements found in Title 42 Section 412.3 of the Code of Federal Regulations Patient History Date of Service: 09/10/23 Reason for admission: SOB History of Present Illness: 68 yrs old Male with past medical history of lung cancer status post lung resection nearly a year ago, neuropathy, chronic hypoxic respiratory failure on oxygen support at home who was brought to ER with worsening of shortness of breath. Shortness of breath was progressively getting worse over the last 1 week to the extent that he was getting short of breath even with minimal exertion. Denies any chest pain. No nausea vomiting or diarrhea. Denies any fever or chills. Has occasional cough with mucoid expectoration. Denies any recent travel. No sick contacts. Patient was assessed in the ER and had a CT of the chest which was positive for pulmonary embolism and was admitted for further management. ED did not show any RV strain Allergies No Known Allergies Allergy (Verified 02/20/22 13:27) Home medications list reviewed: Yes Home Medications: Aspirin [Aspirin EC 81 MG] 81 mg PO DAILY 30 Days #30 tablet. 06/15/21 Albuterol Neb [Proventil 0.083% Neb Soln] 2.5 mg IH Q6HP PRN #60 amp 05/23/23 Cefdinir [Cefdinir*] 300 mg PO BID #14 cap 05/23/23 Ipratropium Neb [Atrovent*] 0.5 mg NEB Q6HP PRN #60 amp 05/23/23 Nebulizer 1 each MC DAILY #1 ea 05/23/23 Nebulizer Accessories [Aeroneb Go] 1 each MC DAILY #1 ea 05/23/23 predniSONE [Prednisone*] 20 mg PO SEECOM 24 Days #26 tab 05/23/23 - Past Medical/Surgical History Diabetic: No Past Medical History: Reviewed- Non-Contributory -: Metastatic lung cancer Past Surgical History: Reviewed- Non-Contributory -: Right lower lobe lobectomy - Family History Family History: Reviewed- Non-Contributory - Social History Smoking Status: Former smoker Alcohol use: Yes CD- Drugs: No Caffeine use: Yes Review of Systems 10-point ROS is otherwise unremarkable Respiratory: Cough, Shortness of Breath, SOB with Excertion, Wheezing Cardiovascular: Paroxysmal Noc. Dyspnea Physical Examination - Vital Signs Temperature: 98 F Blood Pressure: 120/70 Pulse: 93 Respirations: 18 Pulse Ox (%): 97 - Physical Exam General: Alert, In no apparent distress, Oriented x3, Cooperative HEENT: Atraumatic, Normocephalic Neck: Supple, JVD not distended, No Thyromegaly Respiratory: Diminished, Crackles/rales Cardiovascular: No edema, Regular rate/rhythm, Normal S1 S2 Capillary refill: <2 Seconds Gastrointestinal: Normal bowel sounds, Soft and benign Musculoskeletal: No clubbing, No swelling, No contractures Integumentary: No rashes, No breakdown, No tenderness/swelling Neurological: Normal gait, Normal speech, Normal strength at 5/5 x4 extr, Cranial nerves 3-12 intact, Normal reflexes 2+ Lymphatics: No axilla or inguinal lymphadenopathy - Studies Laboratory Data (last 24 hrs) 09/10/23 09/10/23 09/10/23 16:43 16:43 16:43 WBC 8.30 Hgb 13.6 Hct 40.4 Plt Count 401 PT 11.4 INR 1.04 APTT 31.9 Sodium 137 Potassium 4.0 BUN 10 Creatinine 0.86 Glucose 111 H Total Bilirubin 0.2 AST 28 ALT 29 Alkaline Phosphatase 116 09/10/23 16:35 WBC Hgb Hct Plt Count PT INR APTT Sodium 141 Potassium 3.6 BUN 11 Creatinine 0.61 L Glucose 102 Total Bilirubin 0.2 AST 22 ALT 25 Alkaline Phosphatase 103 Assessment and Plan - Problems (Diagnosis) (1) Acute on chronic hypoxic respiratory failure Current Visit: Yes Status: Acute Plan: Acute on chronic hypoxic respiratory failure Patient is on home oxygen at baseline at home Will titrate oxygen supplementation Started on bronchodilators History of lung cancer status post lobectomy Followed by oncology Former smoker Continue home medications and titrate as needed (2) Pulmonary embolism Current Visit: Yes Status: Acute Plan: Shortness of breath slightly better On oxygen supplementation CT FINDINGS: Thrombus is present within the distal right main pulmonary artery and right upper lobe pulmonary arterial branches. No left-sided pulmonary emboli A thoracic aortic aneurysm is not noted. A pleural effusion is not seen. A pericardial effusion is not seen. Left pulmonary nodules unchanged Right upper anterior soft tissue with rib involvement unchanged. Right hilar soft tissue unchanged. Mild progression in bilateral pulmonary opacities superimposed over chronic changes IMPRESSION: Right distal main and right upper lobe pulmonary embol Discussed in detail with the patient and family regarding nature of the disease and management options We will get an echocardiogram to rule out RV strain Started on Lovenox Plan to change to p.o. anticoagulants Monitor closely in telemetry Discharge Plan: Home Plan to discharge in: 72 Hours - Advance Directives Does patient have a Living Will: No Does patient have a Durable POA for Healthcare: No - Code Status/Comfort Care Code Status: Full Code Time Spent Managing Pts Care (In Minutes): 65
[2023-09-10] MEDS ORDERED: ALBUTEROL 2.5 MG/3 ML NEB SOL NEB PRN (19:15)
[2023-09-10] MEDS ORDERED: ACETAMINOPHEN 500 MG TAB PO PRN (19:15)
[2023-09-10] MEDS ORDERED: IPRATROPIUM BROM 0.5MG/2.5ML NEB PRN (19:15)
[2023-09-10] MEDS ORDERED: ONDANSETRON 4 MG/2 ML VIAL IV PRN (19:15)
[2023-09-10 21:36] VITALS: BMI 25.4
[2023-09-10] MEDS: predniSONE 20 MG TAB PO SCH (22:09)
[2023-09-11 04:44] VITALS: O2SAT 98
[2023-09-11] MEDS: PANTOPRAZOLE 40MG TABLET PO SCH (07:30)
[2023-09-11] MEDS: predniSONE 20 MG TAB PO ONE (10:52)
[2023-09-11] MEDS: ENOXAPARIN 60 MG/0.6 ML SQ SCH (10:52)
[2023-09-11] MEDS: ASPIRIN EC 81 MG TAB PO SCH (10:52)
[2023-09-11 11:29] LABS: Specific Gravity 1.014 (1.005-1.030); Urine Bilirubin NEGATIVE (Negative); Urine Blood Negative (Negative); Urine Clarity Clear (Clear); Urine Color Light-Yellow (Yellow); Urine Glucose NEGATIVE (Negative); Urine Ketones NEGATIVE (Negative); Urine Microscopic Reflex YN NO UMIC; Urine Nitrite NEGATIVE (Negative); Urine Protein NEGATIVE (Negative); Urine Urobilinogen Normal (Normal); Urine pH 7.5 (5.0-7.0)
[2023-09-11 11:29] LABS: Absolute Eosinophils 0.1 K/uL (0-0.5); Absolute Lymphocytes (CBC) 1.3 K/uL (0.7-4.9); Basophils % 0.7 % (0-1.3); Eosinophils % 1.4 % (0-4.4); Hematocrit 40.5 % (39.6-49.0); Hemoglobin 13.4 g/dL (13.6-17.9); Lymphocytes % 20.7 % (15.3-44.8); MCH 30.2 pg (27.0-35.0); MCHC 33.1 g/dL (32.0-36.0); MCV 91.3 fL (80-100); MPV 7.6 fL (7.6-11.3); Monocytes % 15.3 % (3.3-12.3); Neutrophils % 61.9 % (41.7-73.7); Platelets 422 thou/uL (152-406); RBC Red Blood Cell Count 4.44 M/uL (4.33-5.43)
[2023-09-11 11:53] LABS: Albumin 3.1 g/dL (3.4-5.0); Albumin/Globulin Ratio 0.6 (1.1-1.8); Anion Gap 4.7 mEq/L (5.0-15.0); Bilirubin Total 0.3 mg/dL (0.2-1.0); Globulin 5.1 g/dL (2.3-3.5); Potassium 4.7 mEq/L (3.5-5.1); Protein, Total 8.2 g/dL (6.4-8.2)
--- NOTE | 2023-09-11 13:30 | EKG ---
Test Date: 2023-09-10 Test Time: 16:34:03 Marine Mechanic: JAZMINE MEASUREMENT RESULTS: Intervals: Rate: 110 ID: [id number] QRSD: 70 QT: 324 QTc: 438 [place]: P: 32 ID: [id number] QRS: 44 T: 48 INTERPRETIVE STATEMENTS: Sinus tachycardia Otherwise normal ECG Compared to ECG 05/23/2023 09:29:52 Sinus rhythm no longer present Electronically Signed On 09-11-23 13:27:54 CDT by Nico Hardin
--- NOTE | 2023-09-11 14:28 | ECHO ---
HEIGHT: 5 ft 5 in WEIGHT: 140 lb 0 oz DATE OF STUDY: 09/11/[address]: Alexx Leavitt DO 2-DIMENSIONAL: YES M.MODE: YES DOPPLER: YES COLOR FLOW: YES TDS: PORTABLE: YES DEFINITY: BUBBLE STUDY: DIAGNOSIS: PULMONARY EMBOLISM CARDIAC HISTORY: CATHERIZATION: SURGERY: PROSTHETIC VALVE: PACEMAKER: MEASUREMENTS (cm) DIASTOLIC (NORMALS) SYSTOLIC (NORMALS) IVSd 0.7 (0.6-1.2) LA Diam 2.5 (1.9-4.0) LVEF 52% LVIDd 3.2 (3.5-5.7) LVIDs 2.4 (2.0-3.5) %FS 26% LVPWd 0.8 (0.6-1.2) Ao Diam 2.5 (2.0-3.7) 2 DIMENSIONAL ASSESSMENT: RIGHT ATRIUM: NORMAL LEFT ATRIUM: NORMAL RIGHT VENTRICLE: NORMAL LEFT VENTRICLE: NORMAL TRICUSPID VALVE: MILD TRICUSPID REGURGITATION MITRAL VALVE: NORMAL PULMONIC VALVE: NORMAL AORTIC VALVE: NORMAL PERICARDIAL EFFUSION: NONE AORTIC ROOT: NORMAL LEFT VENTRICULAR WALL MOTION: NORMAL DOPPLER/COLOR FLOW: SEE BELOW COMMENTS: 1. NORMAL LEFT VENTRICULAR EJECTION FRACTION 55-60% 2. NORMAL WALL MOTION 3. MILD TRICUSPID REGURGITATION TECHNOLOGIST: REGIS KINGSTON
--- NOTE | 2023-09-11 16:32 | P.DS ---
Admission Date: 09/10/23 Discharge Date: 09/11/23 Disposition: ROUTINE DISCHARGE Discharge Condition: FAIR Reason for Admission: SOB - Problems (1) Chronic respiratory failure with hypoxia Current Visit: Yes Status: Acute (2) Pulmonary embolism Current Visit: Yes Status: Acute (3) Metastatic lung cancer (metastasis from lung to other site) Current Visit: No Status: Acute Brief History of Present Illness: 68 yrs old man with past medical history of lung cancer status post lung resection nearly a year ago, neuropathy, chronic hypoxic respiratory failure on oxygen support at home who was brought to ER with worsening of shortness of breath. Shortness of breath was progressively getting worse over 1 week to the extent that he was getting short of breath even with minimal exertion. Patient was assessed in the ER and had a CT of the chest which was positive for pulmonary embolism and was admitted for further management. Hospital Course: Patient admitted to the medical floor, treated with full dose Lovenox for pulm embolism. Echocardiogram was done which was unremarkable, no RV strain. Patient was stable on his home oxygen 2 L by nasal cannula. He denied any pain. Patient request to go home. He is discharged with [facility]. Patient informed to avoid falls with him because life-threatening bleed. He is also informed to follow-up with his oncologist regarding his history of cancer and a new pulm embolism. Vital Signs/Physical Exam: Temp Pulse Resp BP Pulse Ox 97.5 F 85 23 H 117/71 99 09/11/23 12:00 09/11/23 12:00 09/11/23 12:00 09/11/23 12:00 09/11/23 12:00 General: Alert, In no apparent distress, Oriented x3 HEENT: Mucous membr. moist/pink Neck: JVD not distended Respiratory: Diminished Cardiovascular: No edema, Regular rate/rhythm, Normal S1 S2 Gastrointestinal: Normal bowel sounds, Soft and benign, Non-distended, No tenderness Musculoskeletal: No swelling Integumentary: No rashes, No cyanosis Neurological: Normal strength at 5/5 x4 extr Laboratory Data at Discharge: WBC 6.40 thou/uL (4.3-10.9) 09/11/23 11:19 Hgb 13.4 g/dL (13.6-17.9) L 09/11/23 11:19 Hct 40.5 % (39.6-49.0) 09/11/23 11:19 Plt Count 422 thou/uL (152-406) H 09/11/23 11:19 PT 11.4 SECONDS (9.5-12.5) 09/10/23 16:43 INR 1.04 09/10/23 16:43 APTT 31.9 SECONDS (24.3-36.9) 09/10/23 16:43 Sodium 138 mEq/L (136-145) 09/11/23 11:19 Potassium 4.7 mEq/L (3.5-5.1) D 09/11/23 11:19 BUN 7 mg/dL (7-18) 09/11/23 11:19 Creatinine 0.80 mg/dL (0.70-1.30) 09/11/23 11:19 Glucose 99 mg/dL (74-106) 09/11/23 11:19 Total Bilirubin 0.3 mg/dL (0.2-1.0) 09/11/23 11:19 AST 21 U/L (15-37) 09/11/23 11:19 ALT 23 U/L (16-61) 09/11/23 11:19 Alkaline Phosphatase 109 U/L (45-117) 09/11/23 11:19 Home Medications: Aspirin [Aspirin EC 81 MG] 81 mg PO DAILY 30 Days #30 tablet. 06/15/21 Albuterol Neb [Proventil 0.083% Neb Soln] 2.5 mg IH Q6HP PRN #60 amp 05/23/23 Ipratropium Neb [Atrovent*] 0.5 mg NEB Q6HP PRN #60 amp 05/23/23 Nebulizer 1 each MC DAILY #1 ea 05/23/23 Nebulizer Accessories [Aeroneb Go] 1 each MC DAILY #1 ea 05/23/23 Apixaban [Eliquis] 5 mg PO BID #74 tab 09/11/23 New Medications: Apixaban [Eliquis] 5 mg PO BID #74 tab Physician Discharge Instructions: Please avoid falls. Falls while taking a blood thinner can result in life-threatening bleeds. Diet: AHA Activity: Fall precautions Followup: Genna Mclean MD [ACTIVE - CAN ADMIT] - 1-2 Weeks Scott,Patricia, GRE INSTRUCTOR [Primary Care Provider] - 1-2 Weeks Time spent managing pt's care (in minutes): 35
[2023-09-11 17:04] VITALS: BP 124/74; TEMP 97.3
[2023-09-18] MEDS ORDERED: predniSONE 20 MG TAB PO SCH (08:00)
[2023-09-25] MEDS ORDERED: predniSONE 10 MG TAB PO SCH (08:00)
== END 2023-09-11 17:44 | disposition home or self-care (01) | DRG 175 ==
LOC: ER 16:24 → ERHOLD 19:15 → 4TH 19:57
PROVIDERS: ADMIT Family Medicine; ATTEND Internal Medicine
DX: I26.99 Other pulmonary embolism without acute cor pulmonale (principal); J96.21 Acute and chronic respiratory failure with hypoxia; C78.00 Secondary malignant neoplasm of unspecified lung; G62.9 Polyneuropathy, unspecified; Z90.2 Acquired absence of lung [part of]; Z88.8 Allergy status to other drugs, medicaments and biological substances; Z90.49 Acquired absence of other specified parts of digestive tract; Z79.82 Long term (current) use of aspirin; Z79.52 Long term (current) use of systemic steroids; Z99.81 Dependence on supplemental oxygen; Z79.899 Other long term (current) drug therapy; Z85.118 Personal history of other malignant neoplasm of bronchus and lung; Z87.891 Personal history of nicotine dependence
CPT/HCPCS: 36415; 71045; 71275; 80048; 80053; 80076; 81003; 83605; 83880; 84484; 85025; 85610; 85730; 87040; 93005; 93306; 94760; 96365; 96366; 96368; 96372; 99285; J0696; J1650; J7030; J7050; J7512; Q9967

== ENCOUNTER 2023-09-27 10:35 | Emergency (ER) | payer OTHER ==
[2023-09-27 11:13] LABS: Absolute Eosinophils 0.2 K/uL (0-0.5); Absolute Lymphocytes (CBC) 0.8 K/uL (0.7-4.9); Absolute Monocytes 1.4 K/uL (0.1-1.3); Absolute Neutrophil 9.5 K/uL (1.8-8.0); Basophils % 0.3 % (0-1.3); Hematocrit 39.3 % (39.6-49.0); Hemoglobin 12.7 g/dL (13.6-17.9); Lymphocytes % 6.7 % (15.3-44.8); MCH 29.7 pg (27.0-35.0); MCHC 32.4 g/dL (32.0-36.0); MCV 91.6 fL (80-100); MPV 7.4 fL (7.6-11.3); Monocytes % 11.5 % (3.3-12.3); Neutrophils % 79.5 % (41.7-73.7); Platelets 348 thou/uL (152-406); Red Cell Distribution Width 14.4 % (12.1-15.2)
[2023-09-27 11:16] LABS: PT Prothrombin Time 13.6 SECONDS (9.5-12.5); Protime INR 1.24
[2023-09-27 11:40] LABS: Albumin/Globulin Ratio 0.6 (1.1-1.8); Anion Gap 4.6 mEq/L (5.0-15.0); Bilirubin Direct 0.2 mg/dL (0-0.2); Bilirubin Indirect, Calculated 0.2 mg/dL (0.2-0.8); Bilirubin Total 0.4 mg/dL (0.2-1.0); Globulin 5.1 g/dL (2.3-3.5); Magnesium 2.1 mg/dL (1.6-2.4); Potassium 3.6 mEq/L (3.5-5.1); Protein, Total 8.1 g/dL (6.4-8.2); Troponin High Sensitivity 14.5 pg/mL (<58.9)
--- NOTE | 2023-09-27 11:54 | RAD REPORT ---
EXAM DESCRIPTION: CT - Chest For Pe Angio - 09/27/2023 11:10 am CLINICAL HISTORY: sob COMPARISON: September 10, 2023 TECHNIQUE: Dynamically enhanced axial 3 mm thick images of the chest were obtained during administra tion of 100 mL Isovue 370 IV contrast. Coronal and oblique reconstruction images were generated and r eviewed. Exam utilizes a protocol for optimal evaluation of pulmonary arterial tree. Maximum intensity projections 3D imaging was utilized All CT scans are performed using dose optimization technique as appropriate and may include automated exposure control or mA/KV adjustment according to patient size. FINDINGS: A pulmonary embolus is not seen. Resolution of right pulmonary emboli A thoracic aortic aneurysm is not noted. A pleural effusion is not seen. A pericardial effusion is not seen. Minimal progression in right lung opacities. No significant change left lung opacities. No significant change in lung nodules/soft tissue IMPRESSION: Negative for a pulmonary embolism. Minimal progression in right lung opacities which could represent pneumonitis superimposed over chron ic changes No significant change in lung nodule/mass
[2023-09-27] MEDS ORDERED: AMPICILLIN/SULBACTAM 3GM/VIAL ONE (12:30)
[2023-09-27] MEDS ORDERED: NA CHLORIDE 0.9% 100 ML ONE (12:30)
--- NOTE | 2023-09-27 12:34 | EDPHYS ---
Physician Documentation [facility] Name: Ye Coleman Age: 68 yrs Sex: Male : 1955 Arrival Date: 09/27/2023 Time: 10:35 Bed 13 Private MD: ED Physician Florentino Beaulieu HPI: 09/26 11:36 This 68 yrs old Male presents to ER via Wheelchair with complaints of sp3 Shortness Of Breath, Cough, Weakness, Headache. 11:36 68-year-old male with history of lung cancer, status post partial lobectomy, prior PE sp3 currently on Eliquis, now presents ED with chief complaint cough and worsening shortness of breath since an incident yesterday where he "choked on some food". Possible aspiration reported. Patient is on 5 L home O2 and his O2 requirement has not changed. He denies any chest pain, back pain, abdominal pain, vomiting, diarrhea, fever, known sick contacts, or any other signs or symptoms on ROS at this time. Daughter states that his subjective shortness of breath has been worse and he has been globally weak.. Historical: - Allergies: 10:50 GABAPENTIN; mb9 - PMHx: 10:50 Lung Cancer; neuropathy; PE (Partial lobectomy - right upper lobe); mb9 - PSHx: 10:50 Appendectomy; Partial lobectomy - right upper lobe; mb9 - Immunization history:: Adult Immunizations up to date. - Infectious Disease History:: Denies. - Social history:: Smoking status: Patient/guardian denies using tobacco. ROS: 11:37 Constitutional: Negative for fever, chills, and weight loss, Eyes: Negative for injury, sp3 pain, redness, and discharge, ENT: Negative for injury, pain, and discharge, Neck: Negative for injury, pain, and swelling, Cardiovascular: Negative for chest pain, palpitations, and edema, Abdomen/GI: Negative for abdominal pain, nausea, vomiting, diarrhea, and constipation, Back: Negative for injury and pain, MS/Extremity: Negative for injury and deformity, Skin: Negative for injury, rash, and discoloration, Neuro: Negative for headache, weakness, numbness, tingling, and seizure, Psych: Negative for depression, anxiety, suicide ideation, homicidal ideation, and hallucinations, Allergy/Immunology: Negative for hives, rash, and allergies, Endocrine: Negative for neck swelling, polydipsia, polyuria, polyphagia, and marked weight changes, 11:37 All other systems are negative, Exam: 11:37 Constitutional: This is a well developed, well nourished patient who is awake, alert, sp3 and in no acute distress. Head/Face: Normocephalic, atraumatic. Eyes: Pupils equal round and reactive to light, extra-ocular motions intact. Lids and lashes normal. Conjunctiva and sclera are non-icteric and not injected. Cornea within normal limits. Periorbital areas with no swelling, redness, or edema. Neck: Trachea midline, no thyromegaly or masses palpated, and no cervical lymphadenopathy. Supple, full range of motion without nuchal rigidity, or vertebral point tenderness. No Meningismus. Chest/axilla: Normal chest wall appearance and motion. Nontender with no deformity. No lesions are appreciated. Cardiovascular: Regular rate and rhythm with a normal S1 and S2. No gallops, murmurs, or rubs. Normal PMI, no JVD. No pulse deficits. Abdomen/GI: Soft, non-tender, with normal bowel sounds. No distension or tympany. No guarding or rebound. No evidence of tenderness throughout. Back: No spinal tenderness. No costovertebral tenderness. Full range of motion. Skin: Warm, dry with normal turgor. Normal color with no rashes, no lesions, and no evidence of cellulitis. MS/ Extremity: Pulses equal, no cyanosis. Neurovascular intact. Full, normal range of motion. Neuro: Awake and alert, GCS 15, oriented to person, place, time, and situation. Cranial nerves II-XII grossly intact. Motor strength 5/5 in all extremities. Sensory grossly intact. Cerebellar exam normal. Normal gait. Psych: Awake, alert, with orientation to person, place and time. Behavior, mood, and affect are within normal limits. 11:37 Respiratory: Coarse breath sounds bilaterally, 11:42 ECG was reviewed by the Attending Physician. EKG demonstrates sinus tachycardia at 107 sp3 bpm with normal intervals, normal QRS, normal axis, normal ST's ST changes without evidence of acute ischemia. No right heart strain is present. Vital Signs: 10:51 BP 146 / 78; Pulse 114; Resp 24; Temp 98.2; Pulse Ox 91% on 5 lpm NC; Weight 63.5 kg; mb9 Height 5 ft. 4 in. ; Pain /10; 11:30 BP 120 / 75; Pulse 104; Resp 28 S; Pulse Ox 98% on 5 lpm NC; aa5 13:00 BP 135 / 77; Pulse 109; Resp 20; Pulse Ox 99% on 3 lpm NC; me1 10:51 Body Mass Index 24.03 (63.50 kg, 162.56 cm) mb9 10:51 Pain Scale: Adult mb9 MDM: 10:49 Patient medically screened. sp3 11:37 Data reviewed: vital signs, nurses notes, lab test result(s), EKG, radiologic studies. sp3 ED course: 68-year-old male with PMH above including lung cancer and PE history. Possible aspiration versus pneumonia versus worsening PE versus ACS are all on the differential. Workup will include CT scan of the chest PE protocol, EKG and general laboratory values. Disposition pending workup and patient course with possible admission versus discharge depending on results. Current heart rate is down in the 90s. Blood pressure is stable. Patient does not appear in any distress and is maintaining 99% pulse oxygenation on 5 L baseline O2.. 12:33 ED course: Mild pneumonitis noted on CT. No PE is present. We will treat with Unasyn sp3 and discharged on Augmentin with PCP follow-up.. 09/26 10:50 Order name: Basic Metabolic Panel; Complete Time: 11:42 sp3 09/26 10:50 Order name: CBC with Diff; Complete Time: 11:42 sp3 09/26 10:50 Order name: LFT's; Complete Time: 11:42 sp3 09/26 10:50 Order name: Magnesium; Complete Time: 11:42 sp3 09/26 10:50 Order name: NT PRO-BNP; Complete Time: 11:42 sp3 09/26 10:50 Order name: PT-INR; Complete Time: 11:42 sp3 09/26 10:50 Order name: Troponin HS; Complete Time: 11:42 sp3 09/26 10:50 Order name: CT Chest For PE Angio; Complete Time: 12:03 sp3 09/26 10:50 Order name: EKG; Complete Time: 10:51 sp3 04/18 10:50 Order name: Cardiac monitoring; Complete Time: 11:04 sp3 09/26 10:50 Order name: EKG - Nurse/Tech; Complete Time: 11:16 sp3 09/26 10:50 Order name: IV Saline Lock; Complete Time: 11:05 sp3 09/26 10:50 Order name: Labs collected and sent; Complete Time: 11:04 sp3 09/26 10:50 Order name: O2 Per Protocol; Complete Time: 11:04 sp3 09/26 10:50 Order name: O2 Sat Monitoring; Complete Time: 11:04 sp3 Administered Medications: 12:04 Not Given (error): ampicillin-sulbactam sodium1.5 grams IVPB once over 30 mins; (mix in sp3 100 mL NS) 12:37 Drug: Ampicillin-Sulbactam Sodium IVPB 3 grams IVPB once over 30 mins; (mix in 100 mL me1 NS) Route: IVPB; Infused Over: 30 mins; Site: right forearm; 13:25 Follow up: Response: No adverse reaction; IV Status: Completed infusion me1 Disposition Summary: 09/27/23 12:34 Discharge Ordered Notes: Location: Home sp3 Condition: Stable sp3 Diagnosis - Aspiration pneumonia, shortness of breath sp3 Followup: sp3 - With: Private Physician - When: Upon discharge from the Emergency Department - Reason: Continuance of care Discharge Instructions: - Discharge Summary Sheet sp3 - Aspiration Pneumonia, Adult sp3 Forms: - Medication Reconciliation Form sp3 - Thank You Letter sp3 - Antibiotic Education sp3 - Prescription Opioid Use sp3 - Patient Portal Instructions sp3 - Leadership Thank You Letter sp3 Prescriptions: - Augmentin 875-125 mg Oral Tablet - take 1 tablet ORAL route every 12 hours for 10 days; 20 tablet; Refills: 0, sp3 Product Selection Permitted Signatures: Dispatcher [employer] Florentino Spain MD MD sp3 Amber Dave RN RN mb9 Joaquina Lugo RN RN me1
--- NOTE | 2023-09-27 12:34 | ER ---
Nurse's Notes [facility] Name: Ye Coleman Age: 68 yrs Sex: Male : 1955 Arrival Date: 09/27/2023 Time: 10:35 Bed 13 Private MD: Diagnosis: Aspiration pneumonia, shortness of breath Presentation: 09/26 10:51 Chief complaint: Patient states: "Yesterday at dinner, I choked on water or food and mb9 ever since then I've been SOB, feeling weak, and have a bad cough with mucous". Coronavirus screen: Vaccine status: Patient reports being unvaccinated. Ebola Screen: No symptoms or risks identified at this time. Initial Sepsis Screen: Does the patient meet any 2 criteria? No. Patient's initial sepsis screen is negative. Does the patient have a suspected source of infection? No. Patient's initial sepsis screen is negative. Risk Assessment: Do you want to hurt yourself or someone else? Patient reports no desire to harm self or others. Onset of symptoms was September 27, 2023. 10:51 Acuity: EDMOND 2 mb9 10:51 Method Of Arrival: Wheelchair mb9 Triage Assessment: 10:51 General: Appears uncomfortable, ill, Behavior is cooperative. Pain: Denies pain. mb9 Respiratory: Reports shortness of breath cough that is Airway is patent Respiratory effort is labored, Respiratory pattern is hyperventilation Onset: The symptoms/episode began/occurred yesterday, the patient has moderate shortness of breath. Historical: - Allergies: 10:50 GABAPENTIN; mb9 - PMHx: 10:50 Lung Cancer; neuropathy; PE (Partial lobectomy - right upper lobe); mb9 - PSHx: 10:50 Appendectomy; Partial lobectomy - right upper lobe; mb9 - Immunization history:: Adult Immunizations up to date. - Infectious Disease History:: Denies. - Social history:: Smoking status: Patient/guardian denies using tobacco. Screenin:00 [facility] ED Fall Risk Assessment (Adult) History of falling in the last 3 months, aa5 including since admission No falls in past 3 months (0 pts) Confusion or Disorientation No (0 pts) Intoxicated or Sedated No (0 pts) Impaired Gait No (0 pts) Mobility Assist Device Used No (0 pt) Altered Elimination No (0 pt) Score/Fall Risk Level 0 - 2 = Low Risk Oriented to surroundings, Maintained a safe environment, Educated pt \\T\\ family on fall prevention, incl call for assistance when getting out of bed. Abuse screen: Denies threats or abuse. Nutritional screening: No deficits noted. Tuberculosis screening: No symptoms or risk factors identified. Assessment: 11:00 General: Appears uncomfortable, Behavior is calm, cooperative. Pain: Denies pain. aa5 Neuro: Level of Consciousness is awake, alert, obeys commands, Oriented to person, place, time, situation, Button Sawyer are equal bilaterally Moves all extremities. Speech is normal, Facial symmetry appears normal, Reports generalized weakness since yesterday. Cardiovascular: Reports shortness of breath, Denies chest pain, Heart tones S1 S2 present Rhythm is regular. Respiratory: Reports shortness of breath cough Airway is patent Respiratory effort is even, unlabored, Respiratory pattern is tachypnea Breath sounds are diminished bilaterally. the patient has moderate shortness of breath. GI: No signs and/or symptoms were reported involving the gastrointestinal system. : No signs and/or symptoms were reported regarding the genitourinary system. EENT: No signs and/or symptoms were reported regarding the EENT system. Derm: Skin is pink, warm \\T\\ dry. Musculoskeletal: Range of motion: intact in all extremities. 11:15 Reassessment: Pt back from CT scan . aa5 12:05 Reassessment: No changes from previously documented assessment. General: Appears me1 uncomfortable, Behavior is calm, cooperative. Pain: Denies pain. Neuro: Level of Consciousness is awake, alert, obeys commands, Oriented to person, place, time, situation. Cardiovascular: Reports shortness of breath, Denies chest pain, Heart tones S1 S2 present. Respiratory: Reports shortness of breath Airway is patent Respiratory effort is even, unlabored, Respiratory pattern is regular, symmetrical, Breath sounds are diminished bilaterally. GI: No signs and/or symptoms were reported involving the gastrointestinal system. : No signs and/or symptoms were reported regarding the genitourinary system. Derm: Skin is pink, warm \\T\\ dry. Musculoskeletal: Range of motion: intact in all extremities. Vital Signs: 10:51 BP 146 / 78; Pulse 114; Resp 24; Temp 98.2; Pulse Ox 91% on 5 lpm NC; Weight 63.5 kg; mb9 Height 5 ft. 4 in. ; Pain 06/20; 11:30 BP 120 / 75; Pulse 104; Resp 28 S; Pulse Ox 98% on 5 lpm NC; aa5 13:00 BP 135 / 77; Pulse 109; Resp 20; Pulse Ox 99% on 3 lpm NC; me1 10:51 Body Mass Index 24.03 (63.50 kg, 162.56 cm) mb9 10:51 Pain Scale: Adult mb9 ED Course: 10:38 Patient arrived in ED. ra3 10:42 Florentino Beaulieu MD is Attending Physician. sp3 10:50 Arm band placed on. mb9 10:52 Charito Rubio, TRACI is Primary Nurse. aa5 10:52 Triage completed. mb9 11:00 Patient has correct armband on for positive identification. Placed in gown. Bed in low aa5 position. Call light in reach. Side rails up X2. Client placed on continuous cardiac and pulse oximetry monitoring. NIBP monitoring applied. groundwater monitoring technician on. Pulse ox on. NIBP on. 11:00 Initial lab(s) drawn, by ED staff, sent to lab. aa5 11:11 CT Chest For PE Angio In Process Unspecified. EDMS 11:19 EKG done, by ED staff, reviewed by Florentino Beaulieu MD. aa5 12:15 Report given to TRACI Kunz. aa5 13:27 Provided Education on: POC. Verbalized understanding. . me1 13:27 No provider procedures requiring assistance completed. me1 13:34 IV discontinued, intact, bleeding controlled, No redness/swelling at site. Pressure me1 dressing applied. Administered Medications: 12:04 Not Given (error): ampicillin-sulbactam sodium1.5 grams IVPB once over 30 mins; (mix in sp3 100 mL NS) 12:37 Drug: Ampicillin-Sulbactam Sodium IVPB 3 grams IVPB once over 30 mins; (mix in 100 mL me1 NS) Route: IVPB; Infused Over: 30 mins; Site: right forearm; 13:25 Follow up: Response: No adverse reaction; IV Status: Completed infusion me1 Medication: 11:43 VIS not applicable for this client. aa5 Outcome: 12:34 Discharge ordered by . sp3 13:34 Discharged to home ambulatory, with family, me1 13:34 Condition: stable 13:34 Discharge instructions given to patient, family, Instructed on discharge instructions, follow up and referral plans. medication usage, Demonstrated understanding of instructions, follow-up care, medications, 13:34 Patient left the ED. me1 Signatures: Dispatcher [employer] EDNC Charito Rubio RN RN aa5 Florentino Beaulieu MD MD sp3 Amber Dave RN RN mb9 Joaquina Lugo RN RN me1 Hailee Field ra3 Corrections: (The following items were deleted from the chart) 11:44 11:00 Respiratory: Reports shortness of breath cough Airway is patent Respiratory aa5 effort is even, unlabored, Respiratory pattern is tachypnea Breath sounds are diminished bilaterally. aa5
[2023-09-27 19:52] VITALS: TEMP 98.2
[2023-09-27 20:16] VITALS: BP 135/77; O2SAT 99
== END 2023-09-27 13:34 | disposition home or self-care (01) ==
LOC: ER 10:35
DX: J69.0 Pneumonitis due to inhalation of food and vomit (principal); C34.91 Malignant neoplasm of unspecified part of right bronchus or lung; Z90.2 Acquired absence of lung [part of]; Z86.711 Personal history of pulmonary embolism; Z88.8 Allergy status to other drugs, medicaments and biological substances
CPT/HCPCS: 96365; 93005; 85025; 80048; 36415; 83735; 85610; 80076; 84484; 83880; 71275; 99285; Q9967; J0295

== ENCOUNTER 2023-10-01 10:39 | Emergency (ER) | payer OTHER ==
--- NOTE | 2023-10-01 12:16 | RAD REPORT ---
EXAM DESCRIPTION: RAD - Chest Pa And Lat (2 Views) - 10/01/2023 11:36 am CLINICAL HISTORY: DYSPNEA COMPARISON: Chest Single View dated 09/10/2023; Chest Pa And Lat (2 Views) dated 08/08/2023; Chest Sing le View dated 05/23/2023; Chest Single View dated 04/15/2023 TECHNIQUE: PA and lateral views of the chest were obtained. FINDINGS: Stable near complete opacification of the right hemithorax, with large effusion and improv ement of aeration in the right upper to mid lung. Trachea is again deviated to the right. Post resect ion changes in the right upper lung. Stable chronic appearing interstitial changes in the left upper to mid lung. Heart size is normal and central vasculature is within normal limits. No pneumothorax or left-sided pleural effusion seen. No acute bony finding noted. IMPRESSION: Partial improvement of aeration in the right upper to mid lung. Other stable findings as above
--- NOTE | 2023-10-01 12:28 | ER ---
Nurse's Notes [facility] Name: Ye Coleman Age: 68 yrs Sex: Male : 1955 Arrival Date: 10/01/2023 Time: 10:39 Bed 7 Private MD: Diagnosis: Dyspnea, unspecified;Other nonspecific abnormal finding of lung field Presentation: 09/30 10:46 Chief complaint: Patient states: getting more short of breath over the past couple of ko1 weeks. Coronavirus screen: At this time, the client does not indicate any symptoms associated with coronavirus-19. Ebola Screen: No symptoms or risks identified at this time. Initial Sepsis Screen: Does the patient meet any 2 criteria? No. Patient's initial sepsis screen is negative. Does the patient have a suspected source of infection? No. Patient's initial sepsis screen is negative. Risk Assessment: Do you want to hurt yourself or someone else? Patient reports no desire to harm self or others. Onset of symptoms is unknown. 10:46 Method Of Arrival: Wheelchair ko1 10:46 Acuity: EDMOND 3 ko1 Triage Assessment: 10:50 General: Appears in no apparent distress. Behavior is calm, cooperative, appropriate ko1 for age. Pain: Denies pain. Respiratory: Reports shortness of breath at rest Onset: The symptoms/episode began/occurred at an unknown time. the patient has moderate shortness of breath. Historical: - Allergies: 10:50 GABAPENTIN; ko1 - PMHx: 10:50 Lung Cancer; PE (Partial lobectomy -); neuropathy; ko1 - PSHx: 10:50 Appendectomy; Partial lobectomy - right upper lobe; ko1 - Immunization history:: Adult Immunizations unknown. - Infectious Disease History:: Denies. - Social history:: Smoking status: Patient/guardian denies using tobacco, the patient reports quitting approximately 20 years ago. - Family history:: not pertinent. - Hospitalizations: : No recent hospitalization is reported. Screenin:[facility] ED Fall Risk Assessment (Adult) History of falling in the last 3 months, mb9 including since admission No falls in past 3 months (0 pts) Confusion or Disorientation No (0 pts) Intoxicated or Sedated No (0 pts) Impaired Gait No (0 pts) Mobility Assist Device Used No (0 pt) Altered Elimination No (0 pt) Score/Fall Risk Level 0 - 2 = Low Risk Oriented to surroundings, Maintained a safe environment, Educated pt \\T\\ family on fall prevention, incl call for assistance when getting out of bed. Abuse screen: Denies threats or abuse. Nutritional screening: No deficits noted. Tuberculosis screening: No symptoms or risk factors identified. Assessment: 11:20 Reassessment: Pt refusing blood work. Notified ERP. Pt states "I am going to either ld1 way, so I do not want to be poked again. I just wanted to know if there was anything that could help my shortness of breath and breathing problems.". 11:26 General: Appears in no apparent distress. comfortable, Behavior is calm, cooperative, ld1 appropriate for age. Pain: Denies pain. Neuro: Level of Consciousness is awake, alert, obeys commands, Oriented to person, place, time, situation. Cardiovascular: Capillary refill < 3 seconds Patient's skin is warm and dry. Rhythm is sinus rhythm. Respiratory: Airway is patent Respiratory effort is even, labored, Breath sounds are diminished the patient has moderate shortness of breath. GI: Abdomen is flat, non-distended. : No signs and/or symptoms were reported regarding the genitourinary system. EENT: No signs and/or symptoms were reported regarding the EENT system. Derm: No signs and/or symptoms reported regarding the dermatologic system. Musculoskeletal: No signs and/or symptoms reported regarding the musculoskeletal system. Vital Signs: 10:46 BP 128 / 73; Pulse 108; Resp 18; Temp 97; Pulse Ox 98% ; ko1 10:57 BP 110 / 82; Pulse 109; Resp 17; Temp 97.8; Pulse Ox 100% on R/A; jr12 11:02 BP 110 / 82; Pulse 106; Resp 20; Pulse Ox 100% ; ld1 ED Course: 10:42 Patient arrived in ED. mg5 10:42 Arturo Lake MD is Attending Physician. rn 10:50 Triage completed. ko1 10:50 Arm band placed on right wrist. Patient placed in an exam room, on a stretcher, on ko1 oxygen, on teletypesetter monitor, on pulse oximetry, Patient notified of wait time. 11:02 Maxine Chavez, TRACI is Primary Nurse. ld1 11:05 Missed attempt(s): 20 gauge in right antecubital area. ld1 11:21 Placed in gown. Bed in low position. Call light in reach. Side rails up X 1. Client mb9 placed on continuous cardiac and pulse oximetry monitoring. NIBP monitoring applied. shelter monitor on. 11:21 EKG done, by ED staff, reviewed by Arturo Lake MD. mb9 11:21 No provider procedures requiring assistance completed. mb9 11:28 XRAY Chest Pa And Lat (2 Views) In Process Unspecified. EDMS 12:27 Arturo Lake MD is Referral Physician. rn 12:27 Referral Physician role handed off by Arturo Lake MD rn 12:33 Patient did not have IV access during this emergency room visit. ld1 Administered Medications: No medications were administered Medication: : VIS not applicable for this client. mb9 Outcome: : Discharge ordered by . rn 12:33 Discharged to home ambulatory, ld1 12:33 Condition: stable 12:33 Discharge instructions given to patient, Instructed on discharge instructions, follow up and referral plans. Demonstrated understanding of instructions, follow-up care, 12:33 Patient left the ED. ld1 Signatures: Dispatcher [employer] EDCO Arturo Lake MD MD rn Sims, Lauren RN RN ld1 Roxi Cardozo RN RN Amber Dietrich RN RN [id number] Danitza Berman 5 Julianna Verduzco [facility]
--- NOTE | 2023-10-01 12:28 | EDPHYS ---
Physician Documentation [facility] Name: Ye Coleman Age: 68 yrs Sex: Male : 1955 Arrival Date: 10/01/2023 Time: 10:39 Bed 7 Private MD: ED Physician Arturo Lake HPI: 09/30 10:59 This 68 yrs old Male presents to ER via Wheelchair with complaints of rn Shortness Of Breath. 10:59 The patient has shortness of breath with light activity, during heavy activity. Onset: rn The symptoms/episode began/occurred 1 year(s) ago. Duration: The symptoms are intermittent. The patient's shortness of breath is aggravated by exertion, light activity, is alleviated by rest. Associated signs and symptoms: Pertinent positives:. 11:08 Patient reports dyspnea for 1 year. Has history of lung cancer and has been told has rn spots all over his lungs and ribs. On oxygen, seen recently and diagnosed with possible aspiration pneumonitis and placed on antibiotics. Denies any acute changes. No increase in oxygen requirement. Denies worsening of symptoms.. Historical: - Allergies: 10:50 GABAPENTIN; ko1 - PMHx: 10:50 Lung Cancer; PE (Partial lobectomy -); neuropathy; ko1 - PSHx: 10:50 Appendectomy; Partial lobectomy - right upper lobe; ko1 - Immunization history:: Adult Immunizations unknown. - Infectious Disease History:: Denies. - Social history:: Smoking status: Patient/guardian denies using tobacco, the patient reports quitting approximately 20 years ago. - Family history:: not pertinent. - Hospitalizations: : No recent hospitalization is reported. ROS: 11:08 Constitutional: Negative for fever, chills, and weight loss, Cardiovascular: Negative rn for chest pain, palpitations, and edema, Respiratory: Positive for cough and shortness of breath with exertion Abdomen/GI: Negative for abdominal pain, nausea, vomiting, diarrhea, and constipation, Exam: 11:09 Constitutional: This is a well developed, well nourished patient who is awake, alert, rn and in no acute distress. Head/Face: Normocephalic, atraumatic. ENT: No stridor Cardiovascular: Tachycardic, regular. No pulse deficits. Respiratory: Mild tachypnea. No retractions, diminished breath sounds right side Abdomen/GI: Soft, nontender MS/ Extremity: Pulses equal, no cyanosis. Neuro: Awake and alert, GCS 15, oriented to person, place, time, and situation. 11:35 ECG was reviewed by the Attending Physician. rn Vital Signs: 10:46 BP 128 / 73; Pulse 108; Resp 18; Temp 97; Pulse Ox 98% ; ko1 10:57 BP 110 / 82; Pulse 109; Resp 17; Temp 97.8; Pulse Ox 100% on R/A; jr12 11:02 BP 110 / 82; Pulse 106; Resp 20; Pulse Ox 100% ; ld1 MDM: 10:42 Patient medically screened. rn 11:07 ED course: Patient has had CT chest PE protocol 4 days ago. Gave results to family and rn they say that he is content with that. Family member reports that the true reason they came more than anything was to figure out if his lung cancer is getting worse or if this is more infection. Basically family member states he is trying to figure out if there is any further possible treatments or if he should go onto hospice. Patient denies as well as family denies any acute changes.. 11:19 Refusal of service: The patient/guardian displays adequate decision making capability rn and despite a detailed discussion of alternatives, benefits, risks, and consequences refuses: all lab tests. 12:26 Differential diagnosis: pneumonia, Pneumothorax. Data reviewed: vital signs, nurses rn notes, radiologic studies, plain films, and as a result, I will discharge patient. Counseling: I had a detailed discussion with the patient and/or guardian regarding the historical points, exam findings, and any diagnostic results supporting the discharge/admit diagnosis, radiology results, the need for outpatient follow up, to return to the emergency department if symptoms worsen or persist or if there are any questions or concerns that arise at home. Special discussion: Based on the history and exam findings, there is no indication for further emergent testing or inpatient evaluation. I discussed with the patient/guardian the need to see the mathematics faculty member/oncologist for further evaluation of the symptoms. I discussed with the patient/guardian the need to see the primary care provider for further evaluation of the symptoms. I discussed with the patient/guardian the need to see the deck hand for further evaluation of the symptoms. ED course: Chest x-ray shows improved aeration of the right lung. Patient still declines any further testing including blood work, urged him to follow-up with PCP/deck hand/cancer doctor for further recommendations. Overall most recent CT chest did not show significant worsening of known lesions. Patient already on home oxygen. Patient has as needed pulmonary medication. Will discharge home with return precautions. I have personally reviewed all of the results, including but not limited to imaging deemed necessary to safely discharge this patient at this time. All results given to and printed out for patient. I personally went over all the results with the patient and answered all questions. Patient will follow-up with PCP and or specialist as discussed. Return precautions given and understood.. 09/30 10:44 Order name: XRAY Chest Pa And Lat (2 Views); Complete Time: 12:20 rn 09/30 10:50 Order name: EKG; Complete Time: 10:51 rn 09/30 10:50 Order name: Cardiac monitoring; Complete Time: 11: rn 09/30 10:50 Order name: EKG - Nurse/Tech; Complete Time: 11: rn 09/30 10:50 Order name: O2 Per Protocol; Complete Time: : rn 09/30 10:50 Order name: O2 Sat Monitoring; Complete Time: 11: rn 09/30 10:51 Order name: Vital Signs; Complete Time: 11:02 rn EC:35 Rate is 103 beats/min. Rhythm is regular. QRS Covel is Normal. SD interval is normal. rn QRS interval is normal. QT interval is normal. No Q waves. T waves are Normal. No ST changes noted. Clinical impression: Sinus tachycardia. Interpreted by me. Reviewed by me. Administered Medications: No medications were administered Disposition Summary: 10/01/23 12:27 Discharge Ordered Notes: Location: Home rn Problem: an ongoing problem rn Symptoms: have improved rn Condition: Stable rn Diagnosis - Dyspnea, unspecified rn - Other nonspecific abnormal finding of lung field rn Followup: rn - With: Private Physician - When: As needed - Reason: Recheck today's complaints, Re-evaluation by your physician Discharge Instructions: - Discharge Summary Sheet rn - Shortness of Breath, Adult rn - Lung Mass rn Forms: - Medication Reconciliation Form rn - Thank You Letter rn - 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 EDMS EDMS 10:51 10:51 BASIC METABOLIC PANEL+C.LAB.BRZ ordered. EDMS EDMS 10:51 10:51 BLOOD CULTURE*+BA.LAB.BRZ ordered. EDMS EDMS 10:51 10:51 CBC+H.LAB.BRZ ordered. EDMS EDMS 10:51 10:51 HEPATIC FUNCTION+C.LAB.BRZ ordered. EDMS EDMS 10:51 10:51 PROBNP+C.LAB.BRZ ordered. EDMS EDMS 10:51 10:51 PROTIME (+INR)+COAG.LAB.BRZ ordered. EDMS EDMS 10:51 10:51 PTT, ACTIVATED+COAG.LAB.BRZ ordered. EDMS EDMS 10:51 10:51 Troponin High Sensitivity+C.LAB.BRZ ordered. EDMS EDMS 10:51 10:51 LACTATE+C.LAB.BRZ ordered. EDMS EDMS 10:51 10:51 Chest For PE Angio+CT.RAD.BRZ ordered. EDMS EDMS
[2023-10-01 13:17] VITALS: BP 110/82; TEMP 97.8; O2SAT 100
== END 2023-10-01 12:33 | disposition home or self-care (01) ==
LOC: ER 10:39
DX: R06.00 Dyspnea, unspecified (principal); R91.8 Other nonspecific abnormal finding of lung field; Z85.118 Personal history of other malignant neoplasm of bronchus and lung; Z88.8 Allergy status to other drugs, medicaments and biological substances
CPT/HCPCS: 71046; 93005; 99284

== ENCOUNTER 2023-11-20 10:32 | Inpatient (IN) | payer OTHER ==
[2023-11-20 11:07] LABS: Arterial Blood Carboxyhemoglob 0.8 % (0-1.5); Blood Gas THB 13.8 g/dl (12-18); Blood O2 Saturation 76.8 % (92-98.5)
[2023-11-20 11:12] LABS: Absolute Basophils 0.1 K/uL (0-0.5); Absolute Eosinophils 0.5 K/uL (0-0.5); Absolute Lymphocytes (CBC) 0.8 K/uL (0.7-4.9); Absolute Monocytes 0.9 K/uL (0.1-1.3); Absolute Neutrophil 3.2 K/uL (1.8-8.0); Basophils % 0.9 % (0-1.3); Eosinophils % 9.7 % (0-4.4); Hematocrit 39.8 % (39.6-49.0); Hemoglobin 12.9 g/dL (13.6-17.9); Lymphocytes % 14.6 % (15.3-44.8); MCH 29.6 pg (27.0-35.0); MCHC 32.4 g/dL (32.0-36.0); MCV 91.5 fL (80-100); MPV 7.8 fL (7.6-11.3); Monocytes % 16.9 % (3.3-12.3); Neutrophils % 57.9 % (41.7-73.7); Platelets 327 thou/uL (152-406); RBC Red Blood Cell Count 4.35 M/uL (4.33-5.43); Red Cell Distribution Width 14.1 % (12.1-15.2)
[2023-11-20 11:15] LABS: PT Prothrombin Time 11.3 SECONDS (9.5-12.5); Protime INR 1.03
--- NOTE | 2023-11-20 11:32 | RAD REPORT ---
EXAM DESCRIPTION: CT - Chest For Pe Angio - 11/20/2023 11:13 am CLINICAL HISTORY: Shortness of breath. COMPARISON: September 2023 TECHNIQUE: Dynamically enhanced axial 3 mm thick images of the chest were obtained during administra tion of 100 mL Isovue 370 IV contrast. Coronal and oblique reconstruction images were generated and r eviewed. Exam utilizes a protocol for optimal evaluation of pulmonary arterial tree. Maximum intensity projections 3D imaging was utilized All CT scans are performed using dose optimization technique as appropriate and may include automated exposure control or mA/KV adjustment according to patient size. FINDINGS: Thrombus is present within right main and right upper lobe pulmonary arteries. No thrombus within left pulmonary arteries. A thoracic aortic aneurysm is not noted. Small right pleural effusion. The fluid along the right heart unchanged Some of the left pulmonary nodules are stable while others have enlarged. Remainder of the bilateral pulmonary opacities/masses without significant change IMPRESSION: Right main and right upper lobe pulmonary emboli
[2023-11-20 11:39] LABS: ALT/SGPT 40 U/L (16-61); Albumin 3.1 g/dL (3.4-5.0); Albumin/Globulin Ratio 0.6 (1.1-1.8); Alkaline Phosphatase 97 U/L (45-117); BUN Blood Urea Nitrogen 14 mg/dL (7-18); Bicarbonate 36 mEq/L (21-32); Bilirubin Total 0.2 mg/dL (0.2-1.0); Globulin 5.3 g/dL (2.3-3.5); Glomerular Filtration Rate 99 ml/min (=/>90); Glucose Level 99 mg/dL (74-106); NT PRO-BNP 92 pg/mL (<125); Protein, Total 8.4 g/dL (6.4-8.2); Sodium Level 136 mEq/L (136-145); Troponin High Sensitivity 5.4 pg/mL (<58.9)
[2023-11-20 11:41] LABS: AST/SGOT 35 U/L (15-37); Bilirubin Direct < 0.2 mg/dL (0-0.2)
--- NOTE | 2023-11-20 11:47 | EDPHYS ---
Physician Documentation [facility] Name: Ye Coleman Age: 68 yrs Sex: Male : 1955 Arrival Date: 11/20/2023 Time: 10:32 Bed 19 Private MD: ED Physician Florentino Beaulieu HPI: 11/19 10:47 This 68 yrs old Male presents to ER via Unassigned with complaints of sp3 Congestion, Breathing Difficulty. 10:47 68-year-old male with history of lung cancer, status post partial lobectomy, COPD, sp3 prior PE currently on Eliquis, now presents ED with chief complaint cough and worsening shortness of breath over the last [address] Scott as his PCP. Patient denies any chest pain. He is not currently on any cancer treatment. He also denies fever, syncope, abdominal pain, vomiting, diarrhea, or any other signs or symptoms on ROS at this time. Production of his cough has also increased.. Historical: - Allergies: 11:08 GABAPENTIN; ap3 - PMHx: 11:08 Lung Cancer; neuropathy; PE (Partial lobectomy -); ap3 - PSHx: 11:08 Appendectomy; Partial lobectomy - right upper lobe; ap3 - Immunization history:: Client reports having NOT received the Covid vaccine. - Infectious Disease History:: Denies. - Social history:: Smoking status: Patient/guardian denies using tobacco. ROS: 10:48 Constitutional: Negative for fever, chills, and weight loss, Eyes: Negative for injury, sp3 pain, redness, and discharge, Neck: Negative for injury, pain, and swelling, Abdomen/GI: Negative for abdominal pain, nausea, vomiting, diarrhea, and constipation, Back: Negative for injury and pain, MS/Extremity: Negative for injury and deformity, Skin: Negative for injury, rash, and discoloration, Neuro: Negative for headache, weakness, numbness, tingling, and seizure, Psych: Negative for depression, anxiety, suicide ideation, homicidal ideation, and hallucinations, Allergy/Immunology: Negative for hives, rash, and allergies, 10:48 All other systems are negative, Exam: 10:48 Constitutional: This is a well developed, well nourished patient who is awake, alert, sp3 and in no acute distress. Head/Face: Normocephalic, atraumatic. Eyes: Pupils equal round and reactive to light, extra-ocular motions intact. Lids and lashes normal. Conjunctiva and sclera are non-icteric and not injected. Cornea within normal limits. Periorbital areas with no swelling, redness, or edema. Neck: Trachea midline, no thyromegaly or masses palpated, and no cervical lymphadenopathy. Supple, full range of motion without nuchal rigidity, or vertebral point tenderness. No Meningismus. Chest/axilla: Normal chest wall appearance and motion. Nontender with no deformity. No lesions are appreciated. Abdomen/GI: Soft, non-tender, with normal bowel sounds. No distension or tympany. No guarding or rebound. No evidence of tenderness throughout. Back: No spinal tenderness. No costovertebral tenderness. Full range of motion. Skin: Warm, dry with normal turgor. Normal color with no rashes, no lesions, and no evidence of cellulitis. MS/ Extremity: Pulses equal, no cyanosis. Neurovascular intact. Full, normal range of motion. Neuro: Awake and alert, GCS 15, oriented to person, place, time, and situation. Cranial nerves II-XII grossly intact. Motor strength 5/5 in all extremities. Sensory grossly intact. Cerebellar exam normal. Normal gait. Psych: Awake, alert, with orientation to person, place and time. Behavior, mood, and affect are within normal limits. 10:48 Respiratory: Patient has increased respiratory rate and increased work of breathing. sp3 He is on his home O2 condenser and we will move him over to hospital oxygen., 13:07 ECG was reviewed by the Attending Physician. EKG demonstrates normal sinus rhythm at 90 sp3 bpm with normal intervals, normal QRS, normal axis, nonspecific ST's ST changes without evidence of acute ischemia. Vital Signs: 11:05 BP 124 / 78; Pulse 94; Resp 21; Temp 98.7; Pulse Ox 99% on 3 lpm NC; Weight 61.23 kg; ap3 Height 5 ft. 5 in. ; 11:54 BP 121 / 74; Pulse 88; Resp 20; Pulse Ox 100% on BiPAP; ap3 12:45 BP 109 / 72; Pulse 86; Resp 19; Pulse Ox 100% on BiPAP; me1 11:05 Body Mass Index 22.46 (61.23 kg, 165.1 cm) ap3 MDM: 10:38 Patient medically screened. sp3 10:49 Data reviewed: vital signs, nurses notes, old medical records, lab test result(s), EKG, sp3 radiologic studies. ED course: 68-year-old male with extensive PMH of lung cancer. Prior PE also noted. He is on Eliquis. Differential diagnosis includes COPD exacerbation, pneumonia, worsening cancer induced pathology, pleural effusion, ACS, sepsis, shock, among others. Workup included CT scan of the chest, chest x-ray, EKG, laboratory values, swabs with probable admission to the hospital. Will later on antibiotics and other medications as indicated. VBG also pending.. 11:11 ED course: ABG demonstrates 7.31 with pCO2 of 73. Will start BiPAP on this patient. He sp3 is still full code, not on hospice, and not on any anticancer medication. Patient is okay with being admitted here. I discussed findings with radiologist to reported no right heart strain.. 11/19 10:39 Order name: Basic Metabolic Panel; Complete Time: 11:43 sp3 11/19 10:39 Order name: CBC with Diff; Complete Time: 11:27 sp3 11/19 10:39 Order name: LFT's; Complete Time: 11:43 sp3 11/19 10:39 Order name: Magnesium; Complete Time: 11:43 sp3 11/19 10:39 Order name: NT PRO-BNP; Complete Time: 11:43 sp3 11/19 10:39 Order name: PT-INR; Complete Time: 11:27 sp3 11/19 10:39 Order name: Troponin HS; Complete Time: 11:43 sp3 11/19 10:39 Order name: Flu; Complete Time: 12:02 sp3 11/19 10:39 Order name: SARS RAPID; Complete Time: 12:02 sp3 11/19 10:45 Order name: ABG: VBG; Complete Time: 12:02 sp3 11/19 11:41 Order name: Ptt, Activated; Complete Time: 12:02 ll1 11/19 12:29 Order name: Urinalysis w/ reflexes EDHI 11/19 12:29 Order name: Basic Metabolic Panel EDHI 11/19 12:29 Order name: Basic Metabolic Panel EDHI 11/19 12:29 Order name: CBC with Automated Diff EDMS 11/19 12:29 Order name: CBC with Automated Diff EDMS 11/19 12:29 Order name: Magnesium EDMS 11/19 12:29 Order name: Magnesium EDMS 11/19 12:29 Order name: Phosphorus EDMS 11/19 12:29 Order name: Phosphorus EDMS 11/19 12:29 Order name: Troponin High Sensitivity EDMS 11/19 12:29 Order name: Troponin High Sensitivity EDMS 11/19 12:29 Order name: Troponin High Sensitivity EDMS 11/19 10:39 Order name: XRAY Chest (1 view); Complete Time: 12:50 sp3 11/19 10:45 Order name: CT Chest For PE Angio; Complete Time: 11:35 sp3 11/19 12:29 Order name: CONS Physician Consult EDMS 11/19 10:39 Order name: Cardiac monitoring; Complete Time: 11:15 sp3 11/19 10:39 Order name: EKG - Nurse/Tech; Complete Time: 11:46 sp3 11/19 10:39 Order name: IV Saline Lock; Complete Time: 11:15 sp3 11/19 10:39 Order name: Labs collected and sent; Complete Time: 11:15 sp3 11/19 10:39 Order name: O2 Per Protocol; Complete Time: 11:15 sp3 11/19 10:39 Order name: O2 Sat Monitoring; Complete Time: 11:15 sp3 Administered Medications: 12:10 Drug: Heparin (DVT/PE- Bolus per protocol) - HEParin IVP 80 units/kg IVP once; Max ap3 8,000 units {Co-Signature: heather (Joaquina Lugo RN).} Route: IVP; Site: right forearm; 13:05 Follow up: Response: No adverse reaction me1 12:10 Drug: Heparin (DVT/PE Drip) 18 units/kg/hr - ([place] [address] units, D5W IV 500 ml) IV ap3 at calculated rate Per protocol; Max initial rate 1800 units/hr {Co-Signature: 1 (Joaquina Lugo RN).} Route: IV; Rate: calculated rate; Site: right forearm; 13:58 Follow up: IV Status: Infusion continued upon admission me1 12:14 Drug: Cefepime IVPB 2 grams IVPB at 200 ml/hr once over 30 mins; (mix in NS 100 mL) me1 Route: IVPB; Rate: 200 ml/hr; Infused Over: 30 mins; Site: left antecubital; 13:05 Follow up: Response: No adverse reaction; IV Status: Completed infusion; IV Intake: me1 100ml Disposition: 11:12 Critical Care:. sp3 Disposition Summary: 11/20/23 11:47 Hospitalization Ordered Notes: Hospitalization Status: Inpatient Admission sp3 Provider: Albino Butt spNikolay [facility] sp3 Condition: Stable sp3 Problem: an acute exacerbation sp3 Symptoms: have worsened sp3 Bed/Room Type: Standard sp3 Room Assignment: 402(11/20/23 12:41) bd Diagnosis - Hypercarbia, respiratory failure, COPD, lung cancer, pulmonary embolism sp3 Forms: - Medication Reconciliation Form sp3 - SBAR form sp3 - Leadership Thank You Letter sp3 Critical care time excluding procedures: 11:12 Critical care time: Bedside Care: 15 minutes, Consultation: 10 minutes, Family sp3 Intervention: 10 minutes. Total time: 35 minutes Signatures: Dispatcher [employer] EDMS Janet Hilario Amanda, RN RN ap3 Florentino Beaulieu MD MD sp3 Joaquina Lugo RN RN me1 Joaquina Lugo RN me1 Corrections: (The following items were deleted from the chart) 10:40 10:40 BASIC METABOLIC PANEL+C.LAB.BRZ ordered. EDMS EDMS 10:40 10:40 CBC+H.LAB.BRZ ordered. EDMS EDMS 10:40 10:40 HEPATIC FUNCTION+C.LAB.BRZ ordered. EDMS EDMS 10:40 10:40 MAGNESIUM+C.LAB.BRZ ordered. EDMS EDMS 10:40 10:40 PROBNP+C.LAB.BRZ ordered. EDMS EDMS 10:40 10:40 PROTIME (+INR)+COAG.LAB.BRZ ordered. EDMS EDMS 10:40 10:40 Troponin High Sensitivity+C.LAB.BRZ ordered. EDMS EDMS 10:40 10:40 Influenza Screen (A \T\ B)+BA.LAB.BRZ ordered. EDMS EDMS 10:40 10:40 SARS-COV-2 Antigen Rapid+I.LAB.BRZ ordered. EDMS EDMS 10:40 10:40 Chest Single View+RAD.RAD.BRZ ordered. EDMS EDMS 11:12 11:12 BiPap ([employer] Only)+RC.RAD.BRZ ordered. EDMS EDMS 11:42 11:42 PTT, ACTIVATED+COAG.LAB.BRZ ordered. EDMS EDMS 11:43 11:11 ED course: ABG demonstrates 7.31 with pCO2 of 73. Will start BiPAP on this sp3 patient. He is still full code, not on hospice, and not on any anticancer medication. Patient is okay with being admitted here.. sp3 12:41 11:47 sp3 bd
--- NOTE | 2023-11-20 11:47 | ER ---
Nurse's Notes [facility] Name: Ye Coleman Age: 68 yrs Sex: Male : 1955 Arrival Date: 11/20/2023 Time: 10:32 Bed 19 Private MD: Diagnosis: Hypercarbia, respiratory failure, COPD, lung cancer, pulmonary embolism Presentation: 11/19 11:05 Chief complaint: Patient states: he has increased shortness of breath over the last ap3 week. patient wears home oxygen on 5liters for last 2 years post right lobectomy. Coronavirus screen: At this time, the client does not indicate any symptoms associated with coronavirus-19. Ebola Screen: No symptoms or risks identified at this time. Resp Distress? Mild respiratory distress is noted. Initial Sepsis Screen: Does the patient meet any 2 criteria? RR > 20 per min. Does the patient have a suspected source of infection? No. Patient's initial sepsis screen is negative. Risk Assessment: Do you want to hurt yourself or someone else? Patient reports no desire to harm self or others. Onset of symptoms is unknown. 11:05 Method Of Arrival: Wheelchair ap3 11:05 Acuity: EDMOND 3 ap3 11:54 Acuity: EDMOND 2 ap3 Triage Assessment: 11:09 General: Appears comfortable, Behavior is cooperative, appropriate for age. Pain: ap3 Denies pain. Neuro: Level of Consciousness is awake, alert, obeys commands, Oriented to person, place, time, situation. Cardiovascular: Patient's skin is warm and dry. Respiratory: Airway is patent Respiratory effort is even, unlabored, Respiratory pattern is regular, symmetrical, patient presents with home on demand oxygen on 5 liters Onset: The symptoms/episode began/occurred gradually. Historical: - Allergies: 11:08 GABAPENTIN; ap3 - PMHx: 11:08 Lung Cancer; neuropathy; PE (Partial lobectomy -); ap3 - PSHx: 11:08 Appendectomy; Partial lobectomy - right upper lobe; ap3 - Immunization history:: Client reports having NOT received the Covid vaccine. - Infectious Disease History:: Denies. - Social history:: Smoking status: Patient/guardian denies using tobacco. Screenin:12 Abuse screen: Denies threats or abuse. Nutritional screening: No deficits noted. ap3 Tuberculosis screening: No symptoms or risk factors identified. 13:57 [facility] ED Fall Risk Assessment (Adult) History of falling in the last 3 months, me1 including since admission No falls in past 3 months (0 pts) Confusion or Disorientation No (0 pts) Intoxicated or Sedated No (0 pts) Impaired Gait No (0 pts) Mobility Assist Device Used No (0 pt) Altered Elimination No (0 pt) Score/Fall Risk Level 0 - 2 = Low Risk. Assessment: 11:33 General: RT at bedside. patient placed on BiPap. ap3 Vital Signs: 11:05 BP 124 / 78; Pulse 94; Resp 21; Temp 98.7; Pulse Ox 99% on 3 lpm NC; Weight 61.23 kg; ap3 Height 5 ft. 5 in. ; 11:54 BP 121 / 74; Pulse 88; Resp 20; Pulse Ox 100% on BiPAP; ap3 12:45 BP 109 / 72; Pulse 86; Resp 19; Pulse Ox 100% on BiPAP; me1 11:05 Body Mass Index 22.46 (61.23 kg, 165.1 cm) ap3 ED Course: 10:33 Patient arrived in ED. rg4 10:34 Florentino Beaulieu MD is Attending Physician. sp3 10:36 Arm band placed on Patient placed in an exam room, on a stretcher. ll1 11:05 Patient has correct armband on for positive identification. Placed in gown. Bed in low ap3 position. Call light in reach. Side rails up X2. Adult w/ patient. Client placed on continuous cardiac and pulse oximetry monitoring. NIBP monitoring applied. school bus monitor on. Pulse ox on. NIBP on. 11:05 Initial lab(s) drawn, by me, sent to lab. Inserted saline lock: 20 gauge in right ap3 forearm, using aseptic technique. Blood collected. 11:08 Triage completed. ap3 11:14 CT Chest For PE Angio In Process Unspecified. EDMS 11:15 Roxana Merlos, TRACI is Primary Nurse. ap3 11:21 COVID swab sent to lab. Flu and/or RSV swab sent to lab. sm8 11:22 SARS RAPID Sent. sm8 11:22 Flu Sent. sm8 11:46 Albino Butt is Hospitalizing Provider. sp3 11:47 EKG done, by ED staff. sm8 11:53 Inserted saline lock: 22 gauge in left antecubital area, using aseptic technique. ap3 12:13 XRAY Chest (1 view) In Process Unspecified. EDMS 13:56 No provider procedures requiring assistance completed. Patient admitted, IV remains in me1 place. 13:58 Provided Education on: POC. Verbalized understanding . md1 Administered Medications: 12:10 Drug: Heparin (DVT/PE- Bolus per protocol) - HEParin IVP 80 units/kg IVP once; Max ap3 8,000 units {Co-Signature: heather (Joaquina Lugo RN).} Route: IVP; Site: right forearm; 13:05 Follow up: Response: No adverse reaction [facility] 12:10 Drug: Heparin (DVT/PE Drip) 18 units/kg/[place] - ([place] [address] units, D5W IV 500 ml) IV ap3 at calculated rate Per protocol; Max initial rate 1800 units/hr {Co-Signature: heather (Joaquina Lugo RN).} Route: IV; Rate: calculated rate; Site: right forearm; 13:58 Follow up: IV Status: Infusion continued upon admission [facility] 12:14 Drug: Cefepime IVPB 2 grams IVPB at 200 ml/hr once over 30 mins; (mix in NS 100 mL) [facility] Route: IVPB; Rate: 200 ml/hr; Infused Over: 30 mins; Site: left antecubital; 13:05 Follow up: Response: No adverse reaction; IV Status: Completed infusion; IV Intake: me1 100ml Medication: 13:57 VIS not applicable for this client. md1 Intake: 13:05 IV: 100ml; Total: 100ml. md1 Outcome: 11:47 Decision to Hospitalize by Provider. sp3 13:42 Patient left the ED. ll1 13:57 Admitted to Tele accompanied by nurse, via stretcher, room 402, with chart, Report me1 called to TRACI Casanova 13:57 Condition: stable 13:57 Instructed on the need for admit, Signatures: Dispatcher [employer] Flores Bey rg4 Roxana Merlos RN RN ap3 Jalen Newell RN RN 1 Florentino Beaulieu MD MD sp3 Sulema Reyna 8 Joaquina Lugo, TRACI RN me1 Joaquina Lugo RN me1 Corrections: (The following items were deleted from the chart) 11:48 11:46 EKG done, by ED staff, reviewed by Florentino Beaulieu MD ap3 8
[2023-11-20 12:00] LABS: SARS-CoV-2 Antigen CONTROL BLUE LINE VIS/BG OK; SARS-CoV-2 Antigen Rapid Res Negative (Negative)
[2023-11-20] MEDS ORDERED: NA CHLORIDE 0.9% 100 ML ONE (12:03)
[2023-11-20] MEDS ORDERED: CEFEPIME 2 GM VIAL ONE (12:03)
[2023-11-20] MEDS ORDERED: HEPARIN/D5W 25,000 UNIT/500 ML BAG IV ONE (12:04)
[2023-11-20] MEDS ORDERED: HEPARIN 5000 UNIT/ML 1 ML VIAL ONE (12:04)
--- NOTE | 2023-11-20 12:05 | P.HP ---
Certification for Inpatient Patient admitted to: Observation With expected LOS: <2 Midnights Patient will require the following post-hospital care: None Practitioner: I am a practitioner with admitting privileges, knowledge of patient current condition, hospital course, and medical plan of care. Services: Services provided to patient in accordance with Admission requirements found in Title 42 Section 412.3 of the Code of Federal Regulations Patient History Date of Service: 11/20/23 Reason for admission: Acute Respiratory failure 2/2 hypercarbia History of Present Illness: Ye Coleman is a 68 year old male with pmhx lung cancer s/p partial lobectomy, COPD, pulmonary embolism, neuropathy who presents to the ED with chief complaint of cough and worsening shortness of breath for two days. September 09 a pulmonary embolus was seen on the CTA chest and he was discharged with Eliquis. 09/27/23 CTA chest reports on pulmonary embolis present. Today's CTA chest shows another pulmonary embolis. While in the ED, VBG showing pCO2 73.1 and he was started on the bipap. Initial vitals BP 124 / 78; Pulse 94; Resp 21; Temp 98.7; Pulse Ox 99% on 3 lpm NC Laboratory evaluation CBC and BMP unremarkable, ABG pH 7.32, pCO2 73.1, pO2 45.6, HCO3 36.5, ABG repeat pH 7.36, pCO2 65.8, PaO2 34.2, HCO3 35.9. CTA chest reports "Thrombus is present within right main and right upper lobe pulmonary arteries. No thrombus within left pulmonary arteries. A thoracic aortic aneurysm is not noted. Small right pleural effusion. The fluid along the right heart unchanged. Some of the left pulmonary nodules are stable while others have enlarged. Remainder of the bilateral pulmonary opacities/masses without significant change. IMPRESSION: Right main and right upper lobe pulmonary emboli" Chest x-ray reports "Overall no significant change in the extensive bilateral pulmonary opacities, pulmonary nodules and cardiomegaly." Ye bower admitted to hospitalist service for further evaluation and treatment, Dr. Royal consulted. Allergies No Known Allergies Allergy (Verified 02/20/22 13:27) Home Medications: Aspirin [Aspirin EC 81 MG] 81 mg PO DAILY 30 Days #30 tablet. 06/15/21 Albuterol Neb [Proventil 0.083% Neb Soln] 2.5 mg IH Q6HP PRN #60 amp 05/23/23 Ipratropium Neb [Atrovent*] 0.5 mg NEB Q6HP PRN #60 amp 05/23/23 Nebulizer 1 each MC DAILY #1 ea 05/23/23 Nebulizer Accessories [Aeroneb Go] 1 each MC DAILY #1 ea 05/23/23 Apixaban [Eliquis] 5 mg PO BID #74 tab 09/11/23 - Past Medical/Surgical History Diabetic: No -: Metastatic lung cancer -: COPD -: Pulmonary embolism -: Neuropathy -: Right lower lobe lobectomy -: appendectomy - Family History Father -: Heart disease, Stroke Mother Notes: old age - Social History Alcohol use: Yes CD- Drugs: No Caffeine use: Yes Review of Systems Respiratory: Cough, Shortness of Breath Physical Examination - Vital Signs Pulse: 89 Pulse Ox (%): 100 - Physical Exam General: Alert, In no apparent distress, Oriented x3 HEENT: Atraumatic, Normocephalic, PERRLA Neck: Supple, 2+ carotid pulse no bruit, JVD not distended Respiratory: Clear to auscultation bilaterally, Normal air movement Cardiovascular: No edema, Normal pulses, Regular rate/rhythm, Normal S1 S2 Capillary refill: <2 Seconds Gastrointestinal: Normal bowel sounds, Soft and benign Musculoskeletal: No clubbing Integumentary: No rashes Neurological: Normal speech, Normal tone - Studies Laboratory Data (last 24 hrs) 11/20/23 11/20/23 11/20/23 11:03 11:03 11:03 WBC 5.50 Hgb 12.9 L Hct 39.8 Plt Count 327 PT 11.3 INR 1.03 APTT 31.3 Sodium Potassium BUN Creatinine Glucose Magnesium Total Bilirubin AST ALT Alkaline Phosphatase 11/20/23 11:03 WBC Hgb Hct Plt Count PT INR APTT Sodium 136 Potassium 4.0 BUN 14 Creatinine 0.70 Glucose 99 Magnesium 2.0 Total Bilirubin 0.2 AST 35 ALT 40 Alkaline Phosphatase 97 Assessment and Plan - Plan Assessment and plan Acute hypercapnic respiratory failure secondary to pulmonary embolus Mild progression of bilateral pulmonary opacities History of COPD -CTA chest reports "Thrombus is present within right main and right upper lobe pulmonary arteries. No thrombus within left pulmonary arteries. A thoracic aortic aneurysm is not noted. Small right pleural effusion. The fluid along the right heart unchanged. Some of the left pulmonary nodules are stable while others have enlarged. Remainder of the bilateral pulmonary opacities/masses without significant change. IMPRESSION: Right main and right upper lobe pulmonary emboli" -Chest x-ray reports "Overall no significant change in the extensive bilateral pulmonary opacities, pulmonary nodules and cardiomegaly." -ABG pH 7.32, pCO2 73.1, pO2 45.6, HCO3 36.5, ABG repeat pH 7.36, pCO2 65.8, PaO2 34.2, HCO3 35.9 -Flu negative -Oxygen supplementation, BiPAP as needed -Heparin drip -Maxipime started in the ED -Dr. Royal consulted Right lobectomy secondary to cancer -Follow-up outpatient History of neuropathy -Continue home medication DVT PPx heparin drip for now Full code LOS 2 days Discharge Plan: Home Plan to discharge in: 48 Hours - Advance Directives Does patient have a Living Will: No Does patient have a Durable POA for Healthcare: No
--- NOTE | 2023-11-20 12:18 | RAD REPORT ---
EXAM DESCRIPTION: Chloe Single View11/20/2023 12:12 pm CLINICAL HISTORY: Shortness of breath COMPARISON: September 2023 FINDINGS: Overall no significant change in the extensive bilateral pulmonary opacities, pulmonary no dules and cardiomegaly.
[2023-11-20] MEDS ORDERED: HEPARIN/D5W 25,000 UNIT/500 ML BAG IV SCH (13:00)
[2023-11-20 14:21] VITALS: BMI 22.4
[2023-11-20 15:02] LABS: Sqamous Epithelial None Seen /HPF (None Seen); Urine Bacteria None Seen /HPF (<20); Urine Bilirubin NEGATIVE (Negative); Urine Blood Negative (Negative); Urine Clarity Clear (Clear); Urine Color Colorless (Yellow); Urine Culture Reflex Order NOT NEEDED; Urine Glucose NEGATIVE (Negative); Urine Ketones NEGATIVE (Negative); Urine Microscopic Reflex YN ORDER UMIC; Urine Nitrite NEGATIVE (Negative); Urine Protein TRACE (Negative); Urine RBC <5 /HPF (None Seen); Urine Urobilinogen Normal (Normal); Urine WBC <5 /HPF (<5); Urine pH 7.5 (5.0-7.0)
[2023-11-20 15:04] LABS: Specific Gravity > 1.030 (1.005-1.030)
[2023-11-20 17:34] LABS: Arterial Blood Carboxyhemoglob 0.9 % (0-1.5); Blood Gas Oxyhemoglobin 48.6 % (94-97); Blood O2 Saturation 49.6 % (92-98.5)
[2023-11-20 18:05] LABS: Arterial Blood Carboxyhemoglob 1.1 % (0-1.5); Blood Gas Oxyhemoglobin 64.9 % (94-97); Blood Gas THB 13.3 g/dl (12-18); Blood O2 Saturation 66.5 % (92-98.5)
[2023-11-20] MEDS: IPRATROPIUM BROM 0.5MG/2.5ML NEB SCH (19:31)
[2023-11-20] MEDS: ALBUTEROL 2.5 MG/3 ML NEB SOL NEB SCH (19:31)
[2023-11-20] MEDS: METHYLPREDNISOLONE 40 MG INJ IV SCH (23:36)
[2023-11-21 02:52] LABS: Anion Gap 4.7 mEq/L (5.0-15.0); Phosphorus 2.6 mg/dL (2.5-4.9); Potassium 3.7 mEq/L (3.5-5.1)
[2023-11-21 03:07] LABS: Absolute Eosinophils 0.1 K/uL (0-0.5); Absolute Lymphocytes (CBC) 0.6 K/uL (0.7-4.9); Absolute Monocytes 0.2 K/uL (0.1-1.3); Absolute Neutrophil 7.9 K/uL (1.8-8.0); Basophils % 0.3 % (0-1.3); Eosinophils % 1.1 % (0-4.4); Hematocrit 38.1 % (39.6-49.0); Hemoglobin 12.6 g/dL (13.6-17.9); Lymphocytes % 6.8 % (15.3-44.8); MCHC 33.1 g/dL (32.0-36.0); MCV 90.7 fL (80-100); MPV 8.1 fL (7.6-11.3); Monocytes % 2.4 % (3.3-12.3); Neutrophils % 89.4 % (41.7-73.7); Platelets 311 thou/uL (152-406); RBC Red Blood Cell Count 4.21 M/uL (4.33-5.43); Red Cell Distribution Width 14.2 % (12.1-15.2)
[2023-11-21 03:58] LABS: Band Neutrophils 22 % (0-1); Blood Morphology Comment NOT SEEN (NOT SEEN); Differential Total Cells Count 100; Eosinophils 3 % (0-3); Lymphocytes 12 % (15-42); Monocytes 2 % (0-10); Platelet Estimate ADEQ; Segmented Neutrophils 61 % (40-80)
[2023-11-21] MEDS: ENOXAPARIN 60 MG/0.6 ML SQ SCH (09:00)
[2023-11-21] MEDS ORDERED: IPRATROPIUM BROM 0.5MG/2.5ML NEB PRN (09:11)
[2023-11-21] MEDS ORDERED: ALBUTEROL 2.5 MG/3 ML NEB SOL IH PRN (09:11)
[2023-11-21] MEDS: POTASSIUM CL SA 10 MEQ TAB PO ONE (09:23)
[2023-11-21] MEDS: APIXABAN 5 MG TABLET PO SCH (09:23)
[2023-11-21] MEDS ORDERED: KCL 20 MEQ/100 mL IVPB 20 MEQ/100 ML BAG IV SCH (10:00)
[2023-11-21] MEDS: APIXABAN 5 MG TABLET PO ONE (11:25)
[2023-11-21] MEDS ORDERED: ALPRAZOLAM 1 MG TABLET PO PRN (12:37)
--- NOTE | 2023-11-21 12:37 | P.CNS ---
Date of Consult: 11/21/23 Reason for Consult: Metastatic lung cancer Chief Complaint: Respiratory failure History of Present Illness: Patient is 68 years of age been progressively declining he has metastatic lung cancer inoperable seen by oncology he refused hospice care I been following him in the clinic comfort care was initiated including the use of benzodiazepines cussed with her daughter is English-speaking only came in with worsening respiratory distress currently he stopped taking his Eliquis he has a history of thromboembolism no history of fever or chills patient gets very irritated anxious Allergies No Known Allergies Allergy (Verified 02/20/22 13:27) Home Medications: Aspirin [Aspirin EC 81 MG] 81 mg PO DAILY 30 Days #30 tablet. 06/15/21 Albuterol Neb [Proventil 0.083% Neb Soln] 2.5 mg IH Q6HP PRN #60 amp 05/23/23 Ipratropium Neb [Atrovent*] 0.5 mg NEB Q6HP PRN #60 amp 05/23/23 Nebulizer 1 each MC DAILY #1 ea 05/23/23 Nebulizer Accessories [Aeroneb Go] 1 each MC DAILY #1 ea 05/23/23 Apixaban [Eliquis] 5 mg PO BID #74 tab 11/21/23 predniSONE [Deltasone*] 10 mg PO BID 10 Days #20 tab 11/21/23 - Past Medical/Surgical History Diabetic: No -: Metastatic lung cancer -: COPD -: Pulmonary embolism -: Neuropathy -: Right lower lobe lobectomy -: appendectomy - Family History Father Medical History: Heart disease, Stroke Mother Notes: old age - Social History Smoking Status: Former smoker Alcohol use: Yes CD- Drugs: No Caffeine use: Yes Place of Residence: Home Review of Systems is unable to be obtained General: Weakness Respiratory: Shortness of Breath Physical Examination Temp Pulse Resp BP Pulse Ox 96.1 F L 91 H 16 115/66 97 11/21/23 08:00 11/21/23 08:00 11/21/23 08:00 11/21/23 08:00 11/21/23 08:00 General: Alert, Mild distress Respiratory: Clear to auscultation bilaterally, Diminished Cardiovascular: No edema, Regular rate/rhythm, Normal S1 S2 Gastrointestinal: Normal bowel sounds, Soft and benign, Non-distended Musculoskeletal: No clubbing, No swelling - Problems (1) Respiratory failure with hypoxia and hypercapnia Current Visit: Yes Status: Acute Plan: Patient is 68 years of age admitted with worsening respiratory distress blood gases shows hypoxemia with hypercapnia is almost complete opacification on the right side since his metastatic lung cancer his prognosis is very poor plan for comfort care titrate sat to 90% patient has a history of thromboembolism he quit taking his Eliquis will plan to resume at some prednisone nebulizers oxygenation is satisfactory patient has refused hospice care in the past prognosis very poor patient does not tolerate pain medications did well on benzodiazepine which have represcribed Qualifiers: Chronicity: acute on chronic Qualified Code(s): J96.21 - Acute and chronic respiratory failure with hypoxia; J96.22 - Acute and chronic respiratory failure with hypercapnia
[2023-11-21 14:25] VITALS: BP 126/64; TEMP 96.8
--- NOTE | 2023-11-21 15:33 | P.DS ---
Admission Date: 11/20/23 Discharge Date: 11/21/23 Disposition: ROUTINE DISCHARGE Discharge Condition: FAIR Reason for Admission: Respiratory failure Brief History of Present Illness: Diagnosis Acute hypercapnic respiratory failure secondary to pulmonary embolus Mild progression of bilateral pulmonary opacities History of COPD Right lobectomy secondary to cancer History of neuropathy HPI 11/16/2023 Ye Coleman is a 68 year old male with pmhx lung cancer s/p partial lobectomy, COPD, pulmonary embolism, neuropathy who presents to the ED with chief complaint of cough and worsening shortness of breath for two days. September 09 a pulmonary embolus was seen on the CTA chest and he was discharged with Eliquis. 09/27/23 CTA chest reports on pulmonary embolis present. Today's CTA chest shows another pulmonary embolis. While in the ED, VBG showing pCO2 73.1 and he was started on the bipap. Initial vitals BP 124 / 78; Pulse 94; Resp 21; Temp 98.7; Pulse Ox 99% on 3 lpm NC Laboratory evaluation CBC and BMP unremarkable, ABG pH 7.32, pCO2 73.1, pO2 45.6, HCO3 36.5, ABG repeat pH 7.36, pCO2 65.8, PaO2 34.2, HCO3 35.9. CTA chest reports "Thrombus is present within right main and right upper lobe pulmonary arteries. No thrombus within left pulmonary arteries. A thoracic aortic aneurysm is not noted. Small right pleural effusion. The fluid along the right heart unchanged. Some of the left pulmonary nodules are stable while others have enlarged. Remainder of the bilateral pulmonary opacities/masses without significant change. IMPRESSION: Right main and right upper lobe pulmonary emboli" Chest x-ray reports "Overall no significant change in the extensive bilateral pulmonary opacities, pulmonary nodules and cardiomegaly." Ye bower admitted to hospitalist service for further evaluation and treatment, Dr. Royal consulted. Hospital Course: Ye Coleman is a pleasant 68 year old male with a past medical history significant for lung cancer s/p partial lobectomy, COPD, pulmonary embolism, neuropathy who was admitted to the [facility] on 11/20/23 for worsening shortness of breath. Ye Coleman presented to the ED with chief complaint of worsening shortness of breath. Dr. Royal was consulted and has cleared for discharge and medication management as outpatient. Dr. Royal recommends comfort care and titrate oxygen saturation to be at 90%, Ye's prognosis is poor. Please restart taking Eliquis for the continued blood clot in his lung. On 11/21/2023, Ye was seen on morning rounds and deemed medically stable for discharge. Ye was discharged with instructions to schedule follow-up appointments with PCP and Dr. Royal. Ye was provided prescriptions for Eliquis, prednisone, clonazepam. The patient and family members were given the opportunity to ask questions and reported no further questions. Furthermore, all questions were answered to the best of my ability. A copy of this discharge summary will be sent to the above providers to facilitate continuity of care. Physical Exam General: Alert and oriented x 3, no acute distress, conversing well HEENT: Atraumatic, Normocephalic, PERRLA Neck: Supple, 2+ carotid pulse no bruit, JVD not distended Respiratory: Clear to auscultation to left lung field, diminished to right lung field, Normal air movement Cardiovascular: No edema, Normal pulses, Regular rate/rhythm, Normal S1 S2 Capillary refill: <2 Seconds Gastrointestinal: Normal bowel sounds, Soft and benign on palpation, NT/ND Musculoskeletal: No clubbing Integumentary: No rashes Neurological: Normal speech, Normal tone Vital Signs/Physical Exam: Temp Pulse Resp BP Pulse Ox 96.8 F 119 H 15 126/64 97 11/21/23 12:00 11/21/23 12:00 11/21/23 12:00 11/21/23 12:00 11/21/23 12:00 Laboratory Data at Discharge: WBC 8.80 thou/uL (4.3-10.9) 11/21/23 02:10 Hgb 12.6 g/dL (13.6-17.9) L 11/21/23 02:10 Hct 38.1 % (39.6-49.0) L 11/21/23 02:10 Plt Count 311 thou/uL (152-406) 11/21/23 02:10 PT 11.3 SECONDS (9.5-12.5) 11/20/23 11:03 INR 1.03 11/20/23 11:03 APTT 67.8 SECONDS (24.3-36.9) H 11/21/23 08:20 Sodium 133 mEq/L (136-145) L 11/21/23 02:10 Potassium 3.7 mEq/L (3.5-5.1) 11/21/23 02:10 BUN 11 mg/dL (7-18) 11/21/23 02:10 Creatinine 0.65 mg/dL (0.70-1.30) L 11/21/23 02:10 Glucose 119 mg/dL (74-106) H 11/21/23 02:10 Phosphorus 2.6 mg/dL (2.5-4.9) 11/21/23 02:10 Magnesium 2.0 mg/dL (1.6-2.4) 11/21/23 02:10 Total Bilirubin 0.2 mg/dL (0.2-1.0) 11/20/23 11:03 AST 35 U/L (15-37) 11/20/23 11:03 ALT 40 U/L (16-61) 11/20/23 11:03 Alkaline Phosphatase 97 U/L (45-117) 11/20/23 11:03 Home Medications: Aspirin [Aspirin EC 81 MG] 81 mg PO DAILY 30 Days #30 tablet. 06/15/21 Albuterol Neb [Proventil 0.083% Neb Soln] 2.5 mg IH Q6HP PRN #60 amp 05/23/23 Ipratropium Neb [Atrovent*] 0.5 mg NEB Q6HP PRN #60 amp 05/23/23 Nebulizer 1 each MC DAILY #1 ea 05/23/23 Nebulizer Accessories [Aeroneb Go] 1 each MC DAILY #1 ea 05/23/23 Apixaban [Eliquis] 5 mg PO BID #74 tab 11/21/23 clonazePAM [Clonazepam] 0.5 mg PO BID 7 Days #15 tab 11/21/23 predniSONE [Deltasone*] 10 mg PO BID 10 Days #20 tab 11/21/23 New Medications: clonazePAM [Clonazepam] 0.5 mg PO BID 7 Days #15 tab predniSONE [Deltasone*] 10 mg PO BID 10 Days #20 tab Apixaban [Eliquis] 5 mg PO BID #74 tab Physician Discharge Instructions: Ye Coleman presented to the ED with chief complaint of worsening shortness of breath. Dr. oRyal was consulted and has cleared for discharge and medication management as outpatient. Dr. Royal recommends comfort care and titrate oxygen saturation to be at 90%, His prognosis is poor. Please restart taking Eliquis for the continued blood clot in his lung. 1. Please call and schedule a follow-up appointment with your PCP in 3-5 days - Please follow-up with your PCP for medication refills/adjustments 2. Please call and schedule a follow-up appointment with Dr. Royal in one week for further medication management 3. Continue regular diet 4. No activity restrictions 5. Return to the ED if symptoms worsen New medications Eliquis 5 mg PO twice daily- follow up with PCP for need of continued management Prednisone 10 mg PO twice daily for 10 days Clonazepam 0.5 mg p.o. twice daily x 7 days Diet: Regular Activity: Ad selena Followup: Skinny Royal MD [ACTIVE - CAN ADMIT] - 1 Week Patricia Scott FNP [Primary Care Provider] - 1 Week
[2023-11-21 17:39] VITALS: O2SAT 98
[2023-11-21] MEDS ORDERED: HOME MED 1 EA UNK (Apixaban [Eliquis] 5 MG Tab.Ds.Pk) PO SCH (21:00)
[2023-11-21] MEDS ORDERED: APIXABAN 5 MG TABLET PO SCH (21:00)
[2023-11-22] MEDS ORDERED: ASPIRIN EC 81 MG TAB PO SCH (09:00)
--- NOTE | 2023-11-22 12:16 | EKG ---
Test Date: 2023-11-20 Test Time: 11:43:26 Crystalizer: MADHU MEASUREMENT RESULTS: Intervals: Rate: 90 PA: 160 QRSD: 76 QT: 362 QTc: 442 Ardara: P: 21 PA: 160 QRS: 121 T: 24 INTERPRETIVE STATEMENTS: Normal sinus rhythm Left posterior fascicular block Possible Anterior infarct, age undetermined Abnormal ECG Compared to ECG 10/01/2023 11:15:10 Left posterior fascicular block now present Myocardial infarct finding now present Sinus tachycardia no longer present Atrial abnormality no longer present Electronically Signed On 11-22-23 12:14:31 CDT by Dwight Vazquez
[2023-11-28] MEDS ORDERED: APIXABAN 5 MG TABLET PO SCH (09:00)
== END 2023-11-21 16:15 | disposition home or self-care (01) | DRG 175 ==
LOC: ER 10:32 → ERHOLD 12:22 → 4TH 12:52
PROVIDERS: ADMIT Internal Medicine; ATTEND Internal Medicine
PROC: 4A033R1 Measurement of Arterial Saturation, Peripheral, Percutaneous Approach (ICD-10-PCS; principal; 2023-11-20)
PROC: 5A09357 Assistance with Respiratory Ventilation, Less than 24 Consecutive Hours, Continuous Positive Airway Pressure (ICD-10-PCS; 2023-11-20)
DX: I26.99 Other pulmonary embolism without acute cor pulmonale (principal); J96.21 Acute and chronic respiratory failure with hypoxia; J96.22 Acute and chronic respiratory failure with hypercapnia; G62.9 Polyneuropathy, unspecified; J44.9 Chronic obstructive pulmonary disease, unspecified; I71.20 Thoracic aortic aneurysm, without rupture, unspecified; Z90.2 Acquired absence of lung [part of]; Z88.8 Allergy status to other drugs, medicaments and biological substances; Z90.49 Acquired absence of other specified parts of digestive tract; Z11.52 Encounter for screening for COVID-19; Z79.01 Long term (current) use of anticoagulants; Z79.52 Long term (current) use of systemic steroids; Z28.310 Unvaccinated for COVID-19; Z86.711 Personal history of pulmonary embolism; Z85.118 Personal history of other malignant neoplasm of bronchus and lung; Z87.891 Personal history of nicotine dependence
CPT/HCPCS: 36415; 36600; 71045; 71275; 80048; 80076; 81001; 82805; 83735; 83880; 84100; 84484; 85025; 85610; 85730; 87804; 87811; 93005; 94640; 94660; 99285; J0692; J1644; J2920; J7613; J7644; Q9967

== ENCOUNTER 2024-02-18 09:05 | Inpatient (IN) | payer OTHER ==
[2024-02-18] MEDS ORDERED: METHYLPREDNISOLONE 125 MG INJ ONE (09:22)
[2024-02-18] MEDS ORDERED: ALBUTEROL 2.5 MG/3 ML NEB SOL ONE (09:22)
[2024-02-18] MEDS ORDERED: IPRATROPIUM BROM 0.5MG/2.5ML ONE ×2 (09:22→09:50)
[2024-02-18 09:55] LABS: Absolute Eosinophils 0.3 K/uL (0-0.5); Absolute Lymphocytes (CBC) 0.7 K/uL (0.7-4.9); Absolute Monocytes 0.8 K/uL (0.1-1.3); Absolute Neutrophil 5.7 K/uL (1.8-8.0); Basophils % 0.3 % (0-1.3); Eosinophils % 4.3 % (0-4.4); Hematocrit 40.5 % (39.6-49.0); Hemoglobin 13.2 g/dL (13.6-17.9); Lymphocytes % 9.1 % (15.3-44.8); MCH 29.8 pg (27.0-35.0); MCHC 32.5 g/dL (32.0-36.0); MCV 91.6 fL (80-100); MPV 7.9 fL (7.6-11.3); Monocytes % 11.2 % (3.3-12.3); Neutrophils % 75.1 % (41.7-73.7); Platelets 286 thou/uL (152-406); RBC Red Blood Cell Count 4.42 M/uL (4.33-5.43); Red Cell Distribution Width 14.4 % (12.1-15.2)
[2024-02-18 09:59] LABS: PT Prothrombin Time 12.3 SECONDS (9.4-12.5); Protime INR 1.1
[2024-02-18 10:14] LABS: ALT/SGPT 21 U/L (16-61); AST/SGOT 20 U/L (15-37); Albumin 2.7 g/dL (3.4-5.0); Albumin/Globulin Ratio 0.5 (1.1-1.8); Alkaline Phosphatase 82 U/L (45-117); BUN Blood Urea Nitrogen 10 mg/dL (7-18); Bicarbonate 38 mEq/L (21-32); Bilirubin Total 0.3 mg/dL (0.2-1.0); Globulin 5.3 g/dL (2.3-3.5); Glomerular Filtration Rate 97 ml/min (=/>90); Glucose Level 109 mg/dL (74-106); Magnesium 2.2 mg/dL (1.6-2.4); NT PRO-BNP 2581 pg/mL (<125); Sodium Level 137 mEq/L (136-145)
[2024-02-18 10:15] LABS: Bilirubin Direct < 0.2 mg/dL (0-0.2); Bilirubin Indirect, Calculated 0.1 mg/dL (0.2-0.8)
[2024-02-18 10:16] LABS: Troponin High Sensitivity 95.2 pg/mL (<58.9)
--- NOTE | 2024-02-18 10:18 | RAD REPORT ---
EXAM DESCRIPTION: RAD - Chest Single View - 02/18/2024 9:54 am CLINICAL HISTORY: DYSPNEA Chest pain. COMPARISON: Chest Single View dated 11/20/2023; Chest Pa And Lat (2 Views) dated 10/01/2023; Chest Sin gle View dated 09/10/2023; Chest Pa And Lat (2 Views) dated 08/08/2023; Chest For Pe Angio dated 11/20/19 24 FINDINGS: Portable technique limits examination quality. There is extensive opacification of the right hemithorax, chronic in appearance unchanged since 11/19. Left-sided opacities with pleural thickening is also unchanged. The heart is mildly enlarged. No displaced fractures.
[2024-02-18 10:32] LABS: SARS-CoV-2 Antigen CONTROL BLUE LINE VIS/BG OK; SARS-CoV-2 Antigen Rapid Res Negative (Negative)
[2024-02-18] MEDS ORDERED: Levofloxacin500mg IV 500 MG/100 ML BAG IV ONE (10:36)
--- NOTE | 2024-02-18 11:00 | RAD REPORT ---
EXAM DESCRIPTION: CT - Chest For Pe Angio - 02/18/2024 10:38 am CLINICAL HISTORY: Chest pain. Prior cancer;COPD COMPARISON: Chest For Pe Angio dated 11/20/2023 TECHNIQUE: CT angiogram of the pulmonary arteries was performed with MIP. All CT scans are performed using dose optimization technique as appropriate and may include automated exposure control or mA/KV adjustment according to patient size. FINDINGS: Areas of linear filling defect in the right main and upper lobe pulmonary arterial tree arnold ve the appearance of chronic pulmonary embolism. No new pulmonary embolism seen since 11/20/2023 prio r study. No acute aortic finding demonstrated. Extensive scarring is present involving the right lung which is markedly reduced in volume with tract ion bronchiectasis. Irregular scarring is also seen in the left upper lobe and lingula with traction bronchiectasis. There is likely significant fibrotic underlying changes. 3.7 cm soft tissue mass in t he superior segment left lower lobe abutting the medial pleura again seen. 2.3 cm mass is noted in th e superior segment left lower lobe laterally appearing mildly increased in size since 11/20/2023. Trace amount of right-sided pleural thickening. Enlarged lymph nodes are seen in the mediastinum, lar gest in the AP window measuring up to 14 mm. Degenerative changes affect the thoracic spine. IMPRESSION: Chronic pulmonary thromboembolism suspected in the region of the right mainstem and uppe r lobe pulmonary arterial tree branches. Advanced fibro emphysematous changes with traction bronchiectasis noted throughout the lung santiago. Left-sided pulmonary mass lesions appear somewhat increased in size since 11/20/2023 study as detaile d. These are suspicious for neoplastic origin. PET-CT follow-up may be of value.
[2024-02-18] MEDS ORDERED: NA CHLORIDE 0.9% 500 ML ONE (11:26)
--- NOTE | 2024-02-18 11:40 | EDPHYS ---
Physician Documentation [facility] Name: Ye Coleman Age: 68 yrs Sex: Male : 1955 Arrival Date: 02/18/2024 Time: 09:05 Bed 20 Private MD: ED Physician Florentino Beaulieu HPI: 02/17 09:58 This 68 yrs old Male presents to ER via Wheelchair with complaints of sp3 Breathing Difficulty. 09:58 68-year-old male with a history of lung cancer status post right partial lobectomy, sp3 COPD now presents with difficulty breathing, productive cough and wheezing. Patient is had multiple episodes of this in the past. He denies any fever, chest pain, back pain, prolonged immobilization, known sick contacts, travel history, abdominal pain, nausea, vomiting, diarrhea, rash, bleeding, or any other signs or symptoms on ROS at this time.. Historical: - Allergies: 09:12 GABAPENTIN; bp - PMHx: 09:12 Lung Cancer; neuropathy; PE (Partial lobectomy -); Chronic obstructive lung disease; bp - PSHx: 09:12 Appendectomy; Partial lobectomy - right upper lobe; bp - Immunization history:: Adult Immunizations up to date. - Infectious Disease History:: Denies. - Social history:: Smoking status: unknown. ROS: 10:01 Constitutional: Negative for fever, chills, and weight loss, Eyes: Negative for injury, sp3 pain, redness, and discharge, Neck: Negative for injury, pain, and swelling, Cardiovascular: Negative for chest pain, palpitations, and edema, Abdomen/GI: Negative for abdominal pain, nausea, vomiting, diarrhea, and constipation, Back: Negative for injury and pain, MS/Extremity: Negative for injury and deformity, Skin: Negative for injury, rash, and discoloration, Neuro: Negative for headache, weakness, numbness, tingling, and seizure, Psych: Negative for depression, anxiety, suicide ideation, homicidal ideation, and hallucinations, Allergy/Immunology: Negative for hives, rash, and allergies, Endocrine: Negative for neck swelling, polydipsia, polyuria, polyphagia, and marked weight changes, Hematologic/Lymphatic: Negative for swollen nodes, abnormal bleeding, and unusual bruising, 10:01 All other systems are negative, Exam: 10:01 Constitutional: This is a well developed, well nourished patient who is awake, alert, sp3 and in no acute distress. Head/Face: Normocephalic, atraumatic. Eyes: Pupils equal round and reactive to light, extra-ocular motions intact. Lids and lashes normal. Conjunctiva and sclera are non-icteric and not injected. Cornea within normal limits. Periorbital areas with no swelling, redness, or edema. Neck: Trachea midline, no thyromegaly or masses palpated, and no cervical lymphadenopathy. Supple, full range of motion without nuchal rigidity, or vertebral point tenderness. No Meningismus. Chest/axilla: Normal chest wall appearance and motion. Nontender with no deformity. No lesions are appreciated. Cardiovascular: Regular rate and rhythm with a normal S1 and S2. No gallops, murmurs, or rubs. Normal PMI, no JVD. No pulse deficits. Abdomen/GI: Soft, non-tender, with normal bowel sounds. No distension or tympany. No guarding or rebound. No evidence of tenderness throughout. Back: No spinal tenderness. No costovertebral tenderness. Full range of motion. Skin: Warm, dry with normal turgor. Normal color with no rashes, no lesions, and no evidence of cellulitis. MS/ Extremity: Pulses equal, no cyanosis. Neurovascular intact. Full, normal range of motion. Neuro: Awake and alert, GCS 15, oriented to person, place, time, and situation. Cranial nerves II-XII grossly intact. Motor strength 5/5 in all extremities. Sensory grossly intact. Cerebellar exam normal. Normal gait. Psych: Awake, alert, with orientation to person, place and time. Behavior, mood, and affect are within normal limits. 10:01 Respiratory: Bilateral wheezing noted with respiratory distress in room air pulse oxygenation of 85% resolved with oxygen. No accessory muscle use noted. Mild cough also present., Vital Signs: 09:11 BP 111 / 65; Pulse 74; Resp 28; Temp 97.9; Pulse Ox 85% on 3 lpm NC; bp 10:00 BP 122 / 72; Pulse 104; Resp 28; Pulse Ox 90% on 2 lpm NC; db 10:35 BP 119 / 80; Pulse 101; Resp 20; Pulse Ox 100% on Nebulizer Mask; db 11:00 BP 87 / 56; Pulse 105; Resp 20; Pulse Ox 100% on Nebulizer Mask; db 11:19 BP 107 / 73; Pulse 113; Resp 28; Pulse Ox 100% on 4 lpm NC; db 11:30 BP 128 / 70; Pulse 108; Resp 24; Pulse Ox 99% on R/A; db 11:41 Weight 61.23 kg (R); db 12:00 BP 116 / 75; Pulse 104; Resp 22; Pulse Ox 100% on R/A; db 12:30 BP 98 / 66; Pulse 105; Resp 22; Pulse Ox 100% on R/A; db 13:00 BP 96 / 66; Pulse 102; Resp 18; Pulse Ox 100% ; db 13:30 BP 98 / 66; Pulse 101; Resp 18; Pulse Ox 100% on R/A; db MDM: 09:07 Patient medically screened. sp3 10:02 Data reviewed: vital signs, nurses notes, lab test result(s), EKG, radiologic studies. sp3 ED course: 68-year-old male with resolved lung cancer not currently on any treatment and COPD in the past now presents with COPD exacerbation. Differential diagnosis includes COPD, pneumonia, CHF and to a lesser degree ACS or other related pathology. Also to a lesser degree recurrence of cancer or PE. Will obtain CT chest PE protocol and treat with nebulizers, steroids and antibiotics. Patient will likely need admission.. 11:38 ED course: Patient improved after nebulizers. Antibiotics given. Will also add Lovenox sp3 to cover the chronic PE. Discussed with Dr. Royal who will see in consult under hospitalist service. Had extensive conversation with family and patient regarding need for hospice services.. 02/17 09:09 Order name: Basic Metabolic Panel; Complete Time: 10:33 sp3 02/17 09:09 Order name: CBC with Diff; Complete Time: 10:33 sp3 02/17 09:09 Order name: LFT's; Complete Time: 10:33 sp3 02/17 09:09 Order name: Magnesium; Complete Time: 10:33 sp3 02/17 09:09 Order name: NT PRO-BNP; Complete Time: 10:33 sp3 02/17 09:09 Order name: PT-INR; Complete Time: 10:33 sp3 02/17 09:09 Order name: Troponin HS; Complete Time: 10:33 sp3 02/17 09:09 Order name: SARS RAPID; Complete Time: 10:33 sp3 02/17 09:09 Order name: Flu; Complete Time: 10:33 sp3 02/17 10:07 Order name: Blood Culture Adult (2) sp3 02/17 12:49 Order name: CBC with Automated Diff EDMS 02/17 12:49 Order name: CBC with Automated Diff EDMS 02/17 12:49 Order name: Comprehensive Metabolic Panel EDMS 02/17 12:49 Order name: Comprehensive Metabolic Panel EDMS 02/17 12:49 Order name: Lipid Profile EDMS 02/17 12:49 Order name: Lipid Profile EDMS 02/17 12:49 Order name: Magnesium EDMS 02/17 12:49 Order name: Magnesium EDMS 02/17 12:49 Order name: Phosphorus EDMS 02/17 12:49 Order name: Phosphorus EDMS 02/17 12:49 Order name: Troponin High Sensitivity EDMS 02/17 12:49 Order name: Urinalysis w/ reflexes EDMS 02/17 12:50 Order name: Troponin High Sensitivity EDMS 02/17 12:50 Order name: Troponin High Sensitivity EDMS 02/17 09:09 Order name: XRAY Chest (1 view); Complete Time: 10:33 sp3 02/17 10:03 Order name: CT Chest For PE Angio; Complete Time: 11:12 sp3 02/17 09:09 Order name: EKG; Complete Time: 09:10 sp3 02/17 12:49 Order name: CONS Physician Consult EDMS 02/17 12:49 Order name: Social Service Consult EDMS 02/17 09:09 Order name: Cardiac monitoring; Complete Time: 09:37 sp3 02/17 09:09 Order name: EKG - Nurse/Tech; Complete Time: 09:37 sp3 02/17 09:09 Order name: IV Saline Lock; Complete Time: 09:53 sp3 02/17 09:09 Order name: Labs collected and sent; Complete Time: 09:45 sp3 02/17 09:09 Order name: O2 Per Protocol; Complete Time: 09:37 sp3 02/17 09:09 Order name: O2 Sat Monitoring; Complete Time: 09:37 sp3 Administered Medications: 09:45 Drug: DuoNeb Nebulize (3:1) (2.5 mg - 0.5 mg) 3 ml Nebulizer once Route: Nebulizer; db 12:30 Follow up: Response: No adverse reaction db 09:45 Drug: MethylPrednisoLONE IVP 125 mg IVP once Route: IVP; Site: left antecubital; db 12:30 Follow up: Response: No adverse reaction db 10:30 Drug: levofloxacin IVPB 500 mg 100 ml IVPB once over 60 mins Volume: 100 ml; Route: db IVPB; Infused Over: 60 mins; Site: left antecubital; 11:30 Follow up: Response: No adverse reaction; IV Status: Completed infusion; IV Intake: db 100ml 11:28 Drug: NS 0.9% IV 500 ml IV at bolus once Route: IV; Rate: bolus; Site: left antecubital;db 12:30 Follow up: Response: No adverse reaction; IV Status: Completed infusion; IV Intake: db 500ml 11:49 Drug: Enoxaparin Sub-Q 1 mg/kg Sub-Q once Route: Sub-Q; Site: abdomen; db 12:30 Follow up: Response: No adverse reaction db Disposition Summary: 02/18/24 11:39 Hospitalization Ordered Notes: Hospitalization Status: Inpatient Admission sp3 Provider: Heriberto Hartmann sp3 Condition: Stable sp3 Problem: an acute exacerbation sp3 Symptoms: have worsened sp3 Bed/Room Type: Standard sp3 Location: Telemetry/MedSurg (Inpatient)(02/18/24 13:08) bd Room Assignment: 403(02/18/24 13:08) bd Diagnosis - COPD exacerbation, lung cancer, chronic PE sp3 Forms: - Medication Reconciliation Form sp3 - SBAR form sp3 - Leadership Thank You Letter sp3 Signatures: Dispatcher [employer] Janet Horner Brian, RN RN Florentino Jerome MD MD sp3 Leatha Juarez RN RN db Corrections: (The following items were deleted from the chart) 10:01 09:58 68-year-old male with a history of lung cancer status post right partial sp3 lobectomy,. sp3 12:26 11:39 Telemetry/MedSurg (Inpatient) sp3 bd 12:26 11:39 sp3 bd 13:08 12:26 BR ER HOLD bd bd 13: 12:26 ERHOLD- bd bd
--- NOTE | 2024-02-18 11:40 | ER ---
Nurse's Notes [facility] Name: Ye Coleman Age: 68 yrs Sex: Male : 1955 Arrival Date: 02/18/2024 Time: 09:05 Bed 20 Private MD: Diagnosis: COPD exacerbation, lung cancer, chronic PE Presentation: 02/17 09:11 Chief complaint: Patient's son or daughter states: INCREASED SHORTNESS OF BREATH FOR bp TWO WEEKS. Coronavirus screen: At this time, the client does not indicate any symptoms associated with coronavirus-19. Ebola Screen: No symptoms or risks identified at this time. Initial Sepsis Screen: Does the patient meet any 2 criteria? RR > 20 per min. No. Patient's initial sepsis screen is negative. Does the patient have a suspected source of infection? No. Patient's initial sepsis screen is negative. Risk Assessment: Do you want to hurt yourself or someone else? Patient reports no desire to harm self or others. Onset of symptoms is unknown. 09:11 Method Of Arrival: Wheelchair bp 09:11 Acuity: EDMOND 3 bp Triage Assessment: 09:12 General: Appears distressed, Behavior is calm, cooperative, appropriate for age. Pain: bp Denies pain. EENT: No deficits noted. Neuro: No deficits noted. Cardiovascular: No deficits noted. Respiratory: Reports shortness of breath Onset: The symptoms/episode began/occurred at an unknown time. the patient has moderate shortness of breath. Historical: - Allergies: 09:12 GABAPENTIN; bp - PMHx: 09:12 Lung Cancer; neuropathy; PE (Partial lobectomy -); Chronic obstructive lung disease; bp - PSHx: 09:12 Appendectomy; Partial lobectomy - right upper lobe; bp - Immunization history:: Adult Immunizations up to date. - Infectious Disease History:: Denies. - Social history:: Smoking status: unknown. Screenin:30 [facility] [place] ED Fall Risk Assessment (Adult) History of falling in the last 3 months, db including since admission No falls in past 3 months (0 pts) Confusion or Disorientation No (0 pts) Intoxicated or Sedated No (0 pts) Impaired Gait No (0 pts) Mobility Assist Device Used No (0 pt) Altered Elimination No (0 pt) Score/Fall Risk Level 0 - 2 = Low Risk Oriented to surroundings, Maintained a safe environment. Abuse screen: Denies threats or abuse. Denies injuries from another. Nutritional screening: No deficits noted. Tuberculosis screening: No symptoms or risk factors identified. Assessment: 09:46 Reassessment: Patient appears in no apparent distress at this time. Patient and/or db family updated on plan of care and expected duration. Pain level reassessed. Patient is alert, oriented x 3, equal unlabored respirations, skin warm/dry/pink. General: Appears in no apparent distress. comfortable, Behavior is calm, cooperative. Pain: Denies pain. Neuro: Level of Consciousness is awake, alert, obeys commands, Oriented to person, place, time, situation. Cardiovascular: Rhythm is regular. Respiratory: Airway is patent Respiratory effort is even, unlabored, Respiratory pattern is regular, symmetrical. 11:35 Reassessment: Patient appears in no apparent distress at this time. Patient and/or db family updated on plan of care and expected duration. Pain level reassessed. Patient is alert, oriented x 3, equal unlabored respirations, skin warm/dry/pink. DR. BEAULIEU AT PATIENT BEDSIDE FOR UPDATE. Respiratory: Breath sounds are diminished. 12:30 Reassessment: Patient appears in no apparent distress at this time. Patient and/or db family updated on plan of care and expected duration. Pain level reassessed. Patient is alert, oriented x 3, equal unlabored respirations, skin warm/dry/pink. 13:57 Reassessment: Patient appears in no apparent distress at this time. Patient and/or db family updated on plan of care and expected duration. Pain level reassessed. Patient is alert, oriented x 3, equal unlabored respirations, skin warm/dry/pink. PATIENT PROVIDED URINAL. Vital Signs: 09:11 BP 111 / 65; Pulse 74; Resp 28; Temp 97.9; Pulse Ox 85% on 3 lpm NC; bp 10:00 BP 122 / 72; Pulse 104; Resp 28; Pulse Ox 90% on 2 lpm NC; db 10:35 BP 119 / 80; Pulse 101; Resp 20; Pulse Ox 100% on Nebulizer Mask; db 11:00 BP 87 / 56; Pulse 105; Resp 20; Pulse Ox 100% on Nebulizer Mask; db 11:19 BP 107 / 73; Pulse 113; Resp 28; Pulse Ox 100% on 4 lpm NC; db 11:30 BP 128 / 70; Pulse 108; Resp 24; Pulse Ox 99% on R/A; db 11:41 Weight 61.23 kg (R); db 12:00 BP 116 / 75; Pulse 104; Resp 22; Pulse Ox 100% on R/A; db 12:30 BP 98 / 66; Pulse 105; Resp 22; Pulse Ox 100% on R/A; db 13:00 BP 96 / 66; Pulse 102; Resp 18; Pulse Ox 100% ; db 13:30 BP 98 / 66; Pulse 101; Resp 18; Pulse Ox 100% on R/A; db ED Course: 09:06 Patient arrived in ED. [id number] 09:06 Florentino Beaulieu MD is Attending Physician. sp3 09:12 Triage completed. bp 09:12 Arm band placed on. bp 09:14 Leatha Juarez, TRACI is Primary Nurse. db 09:40 Initial lab(s) drawn, by me, sent to lab. Inserted saline lock: 20 gauge in left db antecubital area, using aseptic technique. Blood collected. Flushed with 10 mL NS. 09:46 Patient has correct armband on for positive identification. Bed in low position. Call db light in reach. Side rails up X 1. Client placed on continuous cardiac and pulse oximetry monitoring. NIBP monitoring applied. child monitor on. Pulse ox on. NIBP on. Warm blanket given. 09:56 XRAY Chest (1 view) In Process Unspecified. EDMS 10:30 Provided Education on: LABS, ANTIBIOTICS AND PLAN OF CARE. db 10:40 CT Chest For PE Angio In Process Unspecified. EDMS 11:39 Heriberto Hartmann MD is Hospitalizing Provider. sp3 13:58 No provider procedures requiring assistance completed. Patient admitted, IV remains in db place. Administered Medications: 09:45 Drug: DuoNeb Nebulize (3:1) (2.5 mg - 0.5 mg) 3 ml Nebulizer once Route: Nebulizer; db 12:30 Follow up: Response: No adverse reaction db 09:45 Drug: MethylPrednisoLONE IVP 125 mg IVP once Route: IVP; Site: left antecubital; db 12:30 Follow up: Response: No adverse reaction db 10:30 Drug: levofloxacin IVPB 500 mg 100 ml IVPB once over 60 mins Volume: 100 ml; Route: db IVPB; Infused Over: 60 mins; Site: left antecubital; 11:30 Follow up: Response: No adverse reaction; IV Status: Completed infusion; IV Intake: db 100ml 11:28 Drug: NS 0.9% IV 500 ml IV at bolus once Route: IV; Rate: bolus; Site: left antecubital;db 12:30 Follow up: Response: No adverse reaction; IV Status: Completed infusion; IV Intake: db 500ml 11:49 Drug: Enoxaparin Sub-Q 1 mg/kg Sub-Q once Route: Sub-Q; Site: abdomen; db 12:30 Follow up: Response: No adverse reaction db Medication: 13:58 VIS not applicable for this client. db Intake: 11:30 IV: 100ml; Total: 100ml. db 12:30 IV: 500ml; Total: 600ml. db Outcome: 11:39 Decision to Hospitalize by Provider. sp3 13:58 Admitted to Med/surg accompanied by tech, via stretcher, on monitor, Report called to db CHARGE NURSE. FAXED. 13:58 Condition: stable 13:58 Instructed on the need for admit, 14:05 Patient left the ED. db Signatures: Dispatcher [employer] EDLuisito Calvillo, RN RN Florentino Jerome MD MD sp3 Bibi [id number] Leatha Juarez RN RN db
[2024-02-18] MEDS ORDERED: ENOXAPARIN 60 MG/0.6 ML SQ ONE (11:44)
--- NOTE | 2024-02-18 12:28 | P.HP ---
Certification for Inpatient Patient admitted to: Observation With expected LOS: <2 Midnights Patient will require the following post-hospital care: Other (pt would benefit from hospice care) Practitioner: I am a practitioner with admitting privileges, knowledge of patient current condition, hospital course, and medical plan of care. Services: Services provided to patient in accordance with Admission requirements found in Title 42 Section 412.3 of the Code of Federal Regulations <SmithDeepa - Last Filed: 02/18/24 12:48> Patient History Date of Service: 02/18/24 Reason for admission: acute on chronic hypercapnic resp failure, lung CA History of Present Illness: Mr. Coleman is a 68-year-old gentleman with a past medical history of lung cancer status post partial lobectomy, COPD, chronic pulmonary embolism, neuropathy who presented to the emergency department with dyspnea on exertion. He states he was unaware he had nebulizer solution at home. In the emergency department he was treated with a duo-nebulizer, solumedrol 125mg IV, given 500 mL normal saline, and Levaquin 500 mg IV after laboratory studies were drawn. Laboratory evaluation generally unremarkable except an albumin of 2.7, BNP 2581, and a troponin of 95.2. 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 Advanced directive/hospice/comfort care has been discussed with the patient and family on multiple occasions including today in the emergency department. Mr. Coleman says he is feeling better at this time and would like to be admitted for further evaluation and treatment. Home medications list reviewed: Yes - Past Medical/Surgical History Has patient received pneumonia vaccine in the past: Yes Diabetic: No -: Metastatic lung cancer -: COPD -: Pulmonary embolism -: Neuropathy -: Right lower lobe lobectomy -: appendectomy Psychosocial/ Personal History: Lives at home. Has O2, Nebulizer - Family History Father -: Heart disease, Stroke Mother Notes: old age - Social History Alcohol use: Yes CD- Drugs: No Caffeine use: Yes Place of Residence: Home <Deepa Mtz - Last Filed: 02/18/24 12:48> Date of Service: 02/18/24 <Heriberto Hartmann - Last Filed: 02/18/24 16:27> Allergies No Known Allergies Allergy (Verified 02/20/22 13:27) Home Medications: Aspirin [Aspirin EC 81 MG] 81 mg PO DAILY 30 Days #30 tablet. 06/15/21 Albuterol Neb [Proventil 0.083% Neb Soln] 2.5 mg IH Q6HP PRN #60 amp 05/23/23 Ipratropium Neb [Atrovent*] 0.5 mg NEB Q6HP PRN #60 amp 05/23/23 Nebulizer 1 each MC DAILY #1 ea 05/23/23 Nebulizer Accessories [Aeroneb Go] 1 each MC DAILY #1 ea 05/23/23 Apixaban [Eliquis] 5 mg PO BID #74 tab 11/21/23 clonazePAM [Clonazepam] 0.5 mg PO BID 7 Days #15 tab 11/21/23 predniSONE [Deltasone*] 10 mg PO BID 10 Days #20 tab 11/21/23 Review of Systems 10-point ROS is otherwise unremarkable Respiratory: Shortness of Breath, SOB with Excertion, As per HPI <Deepa Mtz - Last Filed: 02/18/24 12:48> Physical Examination - Physical Exam General: Alert, In no apparent distress, Other (on O2 via N/C) HEENT: Atraumatic Neck: Supple Respiratory: Crackles/rales, Expiratory wheezes Cardiovascular: No edema, Normal pulses, Regular rate/rhythm Capillary refill: <2 Seconds Gastrointestinal: Soft and benign Musculoskeletal: No clubbing, No swelling Integumentary: Other (pallor) Neurological: Normal speech, Normal tone, Normal affect Lymphatics: No axilla or inguinal lymphadenopathy External genitalia: Deferred Rectal: Deferred - Studies Laboratory Data (last 24 hrs) 02/18/24 02/18/24 02/18/24 09:40 09:40 09:40 WBC 7.60 Hgb 13.2 L Hct 40.5 Plt Count 286 PT 12.3 INR 1.10 Sodium 137 Potassium 4.0 BUN 10 Creatinine 0.74 Glucose 109 H Magnesium 2.2 Total Bilirubin 0.3 AST 20 ALT 21 Alkaline Phosphatase 82 Microbiology Data (last 24 hrs): 02/18/24 09:40 Nasopharnyx Influenza Type A Antigen Screen - Final 02/18/24 09:40 Nasopharnyx Influenza Type B Antigen Screen - Final <Deepa Mtz - Last Filed: 02/18/24 12:48> - Studies Laboratory Data (last 24 hrs) 02/18/24 02/18/24 02/18/24 09:40 09:40 09:40 WBC 7.60 Hgb 13.2 L Hct 40.5 Plt Count 286 PT 12.3 INR 1.10 Sodium 137 Potassium 4.0 BUN 10 Creatinine 0.74 Glucose 109 H Magnesium 2.2 Total Bilirubin 0.3 AST 20 ALT 21 Alkaline Phosphatase 82 Microbiology Data (last 24 hrs): 02/18/24 09:40 Nasopharnyx Influenza Type A Antigen Screen - Final 02/18/24 09:40 Nasopharnyx Influenza Type B Antigen Screen - Final <GulshanchasHeriberto perez C - Last Filed: 02/18/24 16:27> Assessment and Plan - Plan Chronic resp failure with COPD, metastatic lung ca, and PE Consult Dr. Royal Continue eliquis Nebs, steroids O2 at 2L up to biPap as required Consult Hospice/forensic social worker Elevated cardiac enzymes (somewhat expected with chronic PE), denies chest pain Monitor and trend Anxiety Anxiolytics GI/VTE protonix/eliquis - Advance Directives Does patient have a Living Will: No Does patient have a Durable POA for Healthcare: No - Code Status/Comfort Care Code Status Assessed: Yes (full) <Deepa Mtz - Last Filed: 02/18/24 12:48> - Plan Pt seen and examined. I agree with the note by the COBOL MAINFRAME DEVELOPER. Pt is a 68yo male with past medical history of lung cancer status post partial lobectomy, COPD, chronic pulmonary embolism, and neuropathy who presented woth SOB with exertion. Of note, pt was not using his inhaler at home. The SOB progressively worsened and pt came to the ER for evaluation. On admission, ER physician gave steroid and duoneb. Lab studies show wbc 7.6, Hgb 13.2,K 4, Cr 0.74, troponin 95.2, BNP 2581. CT chest shows progression of extensive left-sided pulmonary masses, chronic pulmonary thromboembolism in the region of the right mainstem and right upper lobe of the pulmonary arterial tree, and advanced fibroemphysematous changes with traction bronchiectasis throughout the lung santiago. The ER physician had another discussion with pt and family about hospice care. At bedside, pt is in NAD and would like to be admitted for treatment. A/P: Acute COPD exacerbation: Will continue steroid, duoneb, oxygen, and abx. Chronic PE: Continue Eliquis Acute resp failure with hypoxia: Likely due to COPD and chronic PE. Will continue meds listed above. Elevated Troponin: Pt denies any chest pain. troponin is 95.2. Likely due to PE. Anxiety: Continue home med. DVT ppx: Eliquis. Code: full <Heriberto Hartmann - Last Filed: 02/18/24 16:27>
[2024-02-18] MEDS ORDERED: SODIUM CHLORIDE 0.9% 10ML INJ IV PRN (12:38)
[2024-02-18] MEDS ORDERED: ALPRAZOLAM 0.25 MG TABLET PO PRN (12:38)
[2024-02-18] MEDS: ALBUTEROL 2.5 MG/3 ML NEB SOL NEB SCH (13:00)
[2024-02-18] MEDS: IPRATROPIUM BROM 0.5MG/2.5ML NEB SCH (13:00)
[2024-02-18] MEDS: PANTOPRAZOLE 40 MG INJ IVP ONE (14:50)
[2024-02-18] MEDS: predniSONE 20 MG TAB PO SCH (14:50)
[2024-02-18 15:59] VITALS: BMI 21.7
[2024-02-18] MEDS: APIXABAN 5 MG TABLET PO SCH (21:45)
[2024-02-19] MEDS: predniSONE 20 MG TAB PO SCH ×2 (04:02→20:25)
[2024-02-19 06:56] LABS: Absolute Lymphocytes (CBC) 0.3 K/uL (0.7-4.9); Absolute Monocytes 0.2 K/uL (0.1-1.3); Absolute Neutrophil 6.1 K/uL (1.8-8.0); Basophils % 0.1 % (0-1.3); Hematocrit 35.6 % (39.6-49.0); Hemoglobin 11.6 g/dL (13.6-17.9); Lymphocytes % 4.3 % (15.3-44.8); MCH 29.6 pg (27.0-35.0); MCHC 32.5 g/dL (32.0-36.0); MCV 90.9 fL (80-100); MPV 8.1 fL (7.6-11.3); Neutrophils % 92.6 % (41.7-73.7); Platelets 264 thou/uL (152-406); RBC Red Blood Cell Count 3.92 M/uL (4.33-5.43); Red Cell Distribution Width 14.1 % (12.1-15.2)
[2024-02-19 07:14] LABS: Albumin 2.3 g/dL (3.4-5.0); Albumin/Globulin Ratio 0.5 (1.1-1.8); Anion Gap 3.2 mEq/L (5.0-15.0); Bilirubin Total 0.2 mg/dL (0.2-1.0); Globulin 4.6 g/dL (2.3-3.5); Magnesium 2.2 mg/dL (1.6-2.4); Phosphorus 2.2 mg/dL (2.5-4.9); Potassium 4.2 mEq/L (3.5-5.1); Protein, Total 6.9 g/dL (6.4-8.2); Troponin High Sensitivity 30.6 pg/mL (<58.9)
[2024-02-19 07:52] LABS: Blood Morphology Comment NOT SEEN (NOT SEEN); Platelet Estimate ADEQ; White Blood Cell Scan OK (OK)
[2024-02-19] MEDS: POTASS/SODIUM PHOSPHATE 1 PKT POWD.PACK PO SCH (08:40)
[2024-02-19 09:14] LABS: Specific Gravity > 1.030 (1.005-1.030); Sqamous Epithelial None Seen /HPF (None Seen); Urine Bacteria None Seen /HPF (<20); Urine Bilirubin NEGATIVE (Negative); Urine Blood Negative (Negative); Urine Clarity Clear (Clear); Urine Color Yellow (Yellow); Urine Culture Reflex Order NOT NEEDED; Urine Glucose NEGATIVE (Negative); Urine Ketones NEGATIVE (Negative); Urine Microscopic Reflex YN ORDER UMIC; Urine Mucus 2+ /HPF (None Seen); Urine Nitrite NEGATIVE (Negative); Urine Protein TRACE (Negative); Urine RBC <5 /HPF (None Seen); Urine Urobilinogen 1+ (Normal); Urine WBC <5 /HPF (<5); Urine pH 6.5 (5.0-7.0)
--- NOTE | 2024-02-19 09:59 | P.PN ---
Subjective Date of Service: 02/19/24 Chief Complaint: acute on chronic hypercapnic resp failure, lung CA Pt is resting comfortably in bed while getting breathing treatment. ER physician talked to pt about hospice care. Pulm is following. No other complaints. Review of Systems General: Unremarkable Eyes: Unremarkable ENT: Unremarkable Respiratory: Cough, SOB with Excertion Cardiovascular: Unremarkable Gastrointestinal: Unremarkable Genitourinary: Unremarkable Musculoskeletal: Unremarkable Integumentary: Unremarkable Neurological: Unremarkable Lymphatics: Unremarkable Physical Examination - Vital Signs Temperature: 97.5 F Blood Pressure: 100/64 Pulse: 93 Respirations: 18 Pulse Ox (%): 100 - Physical Exam General: Alert, In no apparent distress, Oriented x3 HEENT: Atraumatic, Normocephalic, PERRLA Neck: Supple, 2+ carotid pulse no bruit, JVD not distended Respiratory: Normal air movement, Diminished, Expiratory wheezes Cardiovascular: No edema, Normal pulses, Regular rate/rhythm, Normal S1 S2 Capillary refill: <2 Seconds Gastrointestinal: Normal bowel sounds, Soft and benign, Non-distended Musculoskeletal: No clubbing, No swelling, No contractures Integumentary: No rashes, No breakdown, No significant lesion, No tenderness/swelling Neurological: Normal gait, Normal speech, Normal strength at 5/5 x4 extr Lymphatics: No axilla or inguinal lymphadenopathy - Studies Laboratory Data (last 24 hrs) 02/18/24 02/18/24 02/18/24 09:40 09:40 09:40 WBC 7.60 Hgb 13.2 L Hct 40.5 Plt Count 286 PT 12.3 INR 1.10 Sodium 137 Potassium 4.0 BUN 10 Creatinine 0.74 Glucose 109 H Magnesium 2.2 Total Bilirubin 0.3 AST 20 ALT 21 Alkaline Phosphatase 82 Microbiology Data (last 24 hrs): 02/18/24 09:40 Nasopharnyx Influenza Type A Antigen Screen - Final 02/18/24 09:40 Nasopharnyx Influenza Type B Antigen Screen - Final Assessment And Plan - Plan Acute COPD exacerbation: Will continue steroid, duoneb, 3L oxygen, and abx. Chronic PE: Continue Eliquis Acute resp failure with hypoxia: Likely due to COPD and chronic PE. Will continue meds listed above. The ER physician talked to pt and family members about hospice care. Hx of lung cancer: status post partial lobectomy. Elevated Troponin: Pt denies any chest pain. troponin is 95.2. Likely due to PE. Anxiety: Continue home med. DVT ppx: Eliquis. Code: full
--- NOTE | 2024-02-19 11:50 | P.CNS ---
Date of Consult: 02/19/24 Chief Complaint: COPD exacerbation History of Present Illness: Recent fall/ Dyspnea worse. Non compliant Has o2 Signed to get on hospice Allergies No Known Allergies Allergy (Verified 02/20/22 13:27) Home Medications: Aspirin [Aspirin EC 81 MG] 81 mg PO DAILY 30 Days #30 tablet. 06/15/21 Albuterol Neb [Proventil 0.083% Neb Soln] 2.5 mg IH Q6HP PRN #60 amp 05/23/23 Ipratropium Neb [Atrovent*] 0.5 mg NEB Q6HP PRN #60 amp 05/23/23 Nebulizer 1 each MC DAILY #1 ea 05/23/23 Nebulizer Accessories [Aeroneb Go] 1 each MC DAILY #1 ea 05/23/23 Apixaban [Eliquis] 5 mg PO BID #74 tab 11/21/23 clonazePAM [Clonazepam] 0.5 mg PO BID 7 Days #15 tab 11/21/23 predniSONE [Deltasone*] 10 mg PO BID 10 Days #20 tab 11/21/23 LORazepam [Ativan] 0.5 mg PO BID PRN 02/19/24 Melatonin 5 mg PO DAILY 02/19/24 Mirtazapine [Remeron] 15 mg PO BEDTIME 02/19/24 Trazodone [Desyrel] 50 mg PO DAILY 02/19/24 - Past Medical/Surgical History Diabetic: No -: Metastatic lung cancer -: COPD -: Pulmonary embolism -: Neuropathy -: Right lower lobe lobectomy -: appendectomy Psychosocial/ Personal History: Lives at home. Has O2, Nebulizer - Family History Father Medical History: Heart disease, Stroke Mother Notes: old age - Social History Smoking Status: Unknown if ever smoked Alcohol use: No CD- Drugs: No Caffeine use: No Place of Residence: Home Review of Systems is unable to be obtained Physical Examination Temp Pulse Resp BP Pulse Ox 97.5 F 93 H 18 100/64 100 02/19/24 10:02 02/19/24 10:02 02/19/24 10:02 02/19/24 10:02 02/19/24 10:02 General: Alert Respiratory: Diminished (On the right side), Expiratory wheezes Cardiovascular: No edema, Normal pulses - Problems (1) Lung cancer Current Visit: Yes Status: Acute Plan: Patient has advanced lung cancer postsurgical resection he is progressed was put on hospice care by the oncologist x-ray shows complete opacification on the right side his overall prognosis is very poor try some bronchodilators he does have inhalers nebulizers at home refuses to use the patient is oxygenation is satisfactory plan for discharge on prednisone back to hospice care trial of some IV fluid Qualifiers: Laterality: right (2) Chronic thromboembolic disease Current Visit: Yes Status: Acute Plan: Patient has from chronic thromboembolic disease continue with Shahrzad
[2024-02-19] MEDS: NA CHLORIDE 0.9% 1,000 ML IV SCH (12:12)
--- NOTE | 2024-02-19 16:57 | EKG ---
Test Date: 2024-02-18 Test Time: 09:27:54 Fence Builder: BRISA MEASUREMENT RESULTS: Intervals: Rate: 97 AL: 152 QRSD: 82 QT: 372 QTc: 472 Minter: P: 20 AL: 152 QRS: 105 T: 13 INTERPRETIVE STATEMENTS: Normal sinus rhythm Prolonged QT Abnormal ECG Compared to ECG 11/20/2023 11:43:26 Prolonged QT interval now present Left posterior fascicular block no longer present Myocardial infarct finding no longer present Electronically Signed On 02-19-24 16:53:22 CDT by Nico Hardin
[2024-02-20 07:16] LABS: Absolute Lymphocytes (CBC) 0.5 K/uL (0.7-4.9); Absolute Monocytes 0.9 K/uL (0.1-1.3); Absolute Neutrophil 10.3 K/uL (1.8-8.0); Basophils % 0.3 % (0-1.3); Eosinophils % 0.3 % (0-4.4); Hematocrit 34.1 % (39.6-49.0); Hemoglobin 11.3 g/dL (13.6-17.9); Lymphocytes % 4.2 % (15.3-44.8); MCH 29.9 pg (27.0-35.0); MCHC 33.1 g/dL (32.0-36.0); MCV 90.4 fL (80-100); MPV 7.7 fL (7.6-11.3); Neutrophils % 87.2 % (41.7-73.7); Platelets 340 thou/uL (152-406); RBC Red Blood Cell Count 3.77 M/uL (4.33-5.43); Red Cell Distribution Width 14.8 % (12.1-15.2)
[2024-02-20 07:32] LABS: ALT/SGPT 17 U/L (16-61); Albumin 2.4 g/dL (3.4-5.0); Albumin/Globulin Ratio 0.6 (1.1-1.8); Alkaline Phosphatase 61 U/L (45-117); Anion Gap 7.8 mEq/L (5.0-15.0); BUN Blood Urea Nitrogen 11 mg/dL (7-18); Bicarbonate 34 mEq/L (21-32); Bilirubin Total 0.2 mg/dL (0.2-1.0); Globulin 4.3 g/dL (2.3-3.5); Glomerular Filtration Rate 99 ml/min (=/>90); Glucose Level 107 mg/dL (74-106); Magnesium 2.1 mg/dL (1.6-2.4); Potassium 3.8 mEq/L (3.5-5.1); Protein, Total 6.7 g/dL (6.4-8.2); Sodium Level 142 mEq/L (136-145)
[2024-02-20 07:46] LABS: AST/SGOT < 10 U/L (15-37)
[2024-02-20 09:35] VITALS: O2SAT 94
--- NOTE | 2024-02-20 12:01 | P.DS ---
Admission Date: 02/19/24 Discharge Date: 02/20/24 Disposition: HOSPICE-HOME Discharge Condition: GOOD Reason for Admission: COPD exacerbation Brief History of Present Illness: Mr. Coleman is a 68-year-old gentleman with a past medical history of lung cancer status post partial lobectomy, COPD, chronic pulmonary embolism, neuropathy who presented to the emergency department with dyspnea on exertion. He states he was unaware he had nebulizer solution at home. In the emergency department he was treated with a duo-nebulizer, solumedrol 125mg IV, given 500 mL normal saline, and Levaquin 500 mg IV after laboratory studies were drawn. Laboratory evaluation generally unremarkable except an albumin of 2.7, BNP 2581, and a troponin of 95.2. Imaging shows progression of extensive left-sided pulmonary masses, chronic pulmonary thromboembolism in the region of the right mainstem and right upper lobe of the pulmonary arterial tree, and advanced fibroemphysematous changes with traction bronchiectasis throughout the lung santiago. Advanced directive/hospice/comfort care has been discussed with the patient and family on multiple occasions including today in the emergency department. Mr. Coleman says he is feeling better at this time and would like to be admitted for further evaluation and treatment. Hospital Course: Pt is a 68 yo fmale with past medical history of lung cancer status post partial lobectomy, COPD, chronic pulmonary embolism, and neuropathy who presented to the emergency department with dyspnea on exertion. Pt said he was unaware he had nebulizer solution at home. On admission, lab studis showed an albumin of 2.7, BNP 2581, and a troponin of 95.2. ER physician gave duo-nebulizer, solumedrol 125mg IV, given 500 mL normal saline, and Levaquin [address]st showed progression of extensive left-sided pulmonary masses, chronic pulmonary thromboembolism in the region of the right mainstem and right upper lobe of the pulmonary arterial tree, and advanced fibroemphysematous changes with traction bronchiectasis throughout the lung santiago. We admitted pt for COPD exacerbation and gave steroid, duoneb, 3L BNC and abx. Pulm evaluated pt and recommended prednisone 20mg po BID. The elevated troponin was likely due to chronic PE. We advised pt to continue hospice care at home. He was in Stable condition prior to discharge. Vital Signs/Physical Exam: Temp Pulse Resp BP Pulse Ox 98.5 F 93 H 16 123/76 93 02/20/24 08:00 02/20/24 08:00 02/20/24 08:00 02/20/24 08:00 02/20/24 08:00 Laboratory Data at Discharge: WBC 11.80 thou/uL (4.3-10.9) H 02/20/24 07:02 Hgb 11.3 g/dL (13.6-17.9) L 02/20/24 07:02 Hct 34.1 % (39.6-49.0) L 02/20/24 07:02 Plt Count 340 thou/uL (152-406) D 02/20/24 07:02 PT 12.3 SECONDS (9.4-12.5) 02/18/24 09:40 INR 1.10 02/18/24 09:40 Sodium 142 mEq/L (136-145) 02/20/24 07:02 Potassium 3.8 mEq/L (3.5-5.1) 02/20/24 07:02 BUN 11 mg/dL (7-18) 02/20/24 07:02 Creatinine 0.71 mg/dL (0.70-1.30) 02/20/24 07:02 Glucose 107 mg/dL (74-106) H 02/20/24 07:02 Phosphorus 3.0 mg/dL (2.5-4.9) 02/20/24 07:02 Magnesium 2.1 mg/dL (1.6-2.4) 02/20/24 07:02 Total Bilirubin 0.2 mg/dL (0.2-1.0) 02/20/24 07:02 AST < 10 U/L (15-37) L 02/20/24 07:02 ALT 17 U/L (16-61) 02/20/24 07:02 Alkaline Phosphatase 61 U/L (45-117) 02/20/24 07:02 Triglycerides 69 mg/dL (<150) 02/19/24 06:38 Cholesterol 138 mg/dL (<200) 02/19/24 06:38 HDL Cholesterol 39 mg/dL (40-60) L 02/19/24 06:38 Cholesterol/HDL Ratio 3.54 02/19/24 06:38 Home Medications: Aspirin [Aspirin EC 81 MG] 81 mg PO DAILY 30 Days #30 tablet. 06/15/21 Albuterol Neb [Proventil 0.083% Neb Soln] 2.5 mg IH Q6HP PRN #60 amp 05/23/23 Ipratropium Neb [Atrovent*] 0.5 mg NEB Q6HP PRN #60 amp 05/23/23 Nebulizer 1 each MC DAILY #1 ea 05/23/23 Nebulizer Accessories [Aeroneb Go] 1 each MC DAILY #1 ea 05/23/23 Apixaban [Eliquis] 5 mg PO BID #74 tab 11/21/23 clonazePAM [Clonazepam] 0.5 mg PO BID 7 Days #15 tab 11/21/23 predniSONE [Deltasone*] 10 mg PO BID 10 Days #20 tab 11/21/23 LORazepam [Ativan*] 0.5 mg PO BID PRN 02/19/24 Melatonin 5 mg PO DAILY 02/19/24 Mirtazapine [Remeron*] 15 mg PO BEDTIME 02/19/24 Trazodone [Desyrel*] 50 mg PO DAILY 02/19/24 predniSONE [Prednisone*] 20 mg PO BID 7 Days #14 tab 02/20/24 New Medications: predniSONE [Prednisone*] 20 mg PO BID 7 Days #14 tab Physician Discharge Instructions: Continue ad selena activity as tolerated. Take prednisone 20mg po BID for 1 week then continue prednisone 10mg po BID. Follow up with PCP and Pulmonology as needed. Continue comfort care. Diet: AHA Activity: Ad selena Followup: NONE,NONE [Primary Care Provider] -
[2024-02-20 12:16] VITALS: BP 111/65; TEMP 97.4
== END 2024-02-20 12:40 | disposition hospice, home (50) | DRG 189 ==
LOC: ER 09:05 → 4TH 12:38 → OBSVTOIN 02-19 21:49
PROVIDERS: ADMIT Hospitalist; ATTEND Hospitalist
DX: J96.21 Acute and chronic respiratory failure with hypoxia (principal); J44.1 Chronic obstructive pulmonary disease with (acute) exacerbation; I27.82 Chronic pulmonary embolism; C34.91 Malignant neoplasm of unspecified part of right bronchus or lung; J96.22 Acute and chronic respiratory failure with hypercapnia; F41.9 Anxiety disorder, unspecified; G62.9 Polyneuropathy, unspecified; R79.89 Other specified abnormal findings of blood chemistry; Z51.5 Encounter for palliative care; Z90.2 Acquired absence of lung [part of]; Z88.8 Allergy status to other drugs, medicaments and biological substances; Z79.82 Long term (current) use of aspirin; Z11.52 Encounter for screening for COVID-19; Z79.01 Long term (current) use of anticoagulants; Z79.52 Long term (current) use of systemic steroids; Z90.49 Acquired absence of other specified parts of digestive tract; Z79.899 Other long term (current) drug therapy; Z85.118 Personal history of other malignant neoplasm of bronchus and lung; Z91.199 Patient's noncompliance with other medical treatment and regimen due to unspecified reason
CPT/HCPCS: 36415; 71045; 71275; 80048; 80053; 80061; 80076; 81001; 83735; 83880; 84100; 84484; 85025; 85610; 87040; 87804; 87811; 93005; 94640; 96361; 96365; 96372; 96375; 99285; G0378; J1650; J2470; J2919; J7030; J7040; J7512; J7613; J7644; Q9967

== ENCOUNTER 2024-03-25 13:02 | Observation (INO) | payer OTHER ==
[2024-03-25 13:46] LABS: Absolute Eosinophils 0.2 K/uL (0-0.5); Absolute Lymphocytes (CBC) 1.1 K/uL (0.7-4.9); Absolute Monocytes 1.2 K/uL (0.1-1.3); Basophils % 0.4 % (0-1.3); Eosinophils % 1.7 % (0-4.4); Hematocrit 37.6 % (39.6-49.0); Hemoglobin 12.3 g/dL (13.6-17.9); Lymphocytes % 10.1 % (15.3-44.8); MCHC 32.7 g/dL (32.0-36.0); MCV 91.8 fL (80-100); MPV 8.1 fL (7.6-11.3); Monocytes % 11.7 % (3.3-12.3); Neutrophils % 76.1 % (41.7-73.7); Platelets 413 thou/uL (152-406); Red Cell Distribution Width 14.6 % (12.1-15.2)
[2024-03-25 13:50] LABS: PT Prothrombin Time 12.4 SECONDS (9.4-12.5); PTT, Activated Partial Thromb 25.5 SECONDS (24.3-36.9); Protime INR 1.11
[2024-03-25 14:02] LABS: Albumin 2.8 g/dL (3.4-5.0); Albumin/Globulin Ratio 0.5 (1.1-1.8); Anion Gap 4.8 mEq/L (5.0-15.0); Bilirubin Total 0.3 mg/dL (0.2-1.0); Globulin 5.2 g/dL (2.3-3.5); Potassium 3.8 mEq/L (3.5-5.1)
[2024-03-25] MEDS ORDERED: NA CHLORIDE 0.9% 1,000 ML ONE (14:16)
[2024-03-25] MEDS ORDERED: METHYLPREDNISOLONE 125 MG INJ ONE (15:23)
--- NOTE | 2024-03-25 15:35 | RAD REPORT ---
EXAM: CT Chest For Pe Angio TECHNIQUE: CT angiogram of the chest was performed following intravenous contrast administration, inc luding sagittal and coronal as well as maximum intensity projection reformats. One or more of the following dose reduction techniques were used: Automated exposure control, adjustment of the mA and k V according to patient size, and iterative reconstruction. Unless otherwise specified, incidental findings do not require dedicated imaging follow-up. INDICATION: Dyspnea. Shortness of breath. History of lung cancer COMPARISON: Chest radiograph of earlier the same day. CT chest 02/18/2024. FINDINGS: LINES/TUBES: None. PULMONARY ARTERIES: No evidence of emboli along the main pulmonary artery, left pulmonary artery, and left pulmonary artery branches. Sluggish opacification of the right pulmonary artery, more progressive along its upper segmental branches, with nonopacification of some of the lower segmental branches, although these are involved by postsurgical changes. The appearance is overall unchanged compared to the prior CT. No new filling defects within the pulmonary arteries to suggest acute pulm onary embolus. LUNGS AND AIRWAYS: Postsurgical changes of partial right lung resection again seen. Medial left lower lobe ovoid pleural-based mass or opacity measuring up to 4.7 cm is probably stable allowing for differences in technique. Central left lower lobe superior segment 2.8 cm mass is also stable allowin g for differences in measurement technique. Small ovoid left lingular opacity measuring 1.7 cm is stable. Patchy opacification bilaterally with air bronchograms on the right again seen. Areas of locu lated right pleural effusion are stable. PLEURA: No effusion or pneumothorax. HEART AND MEDIASTINUM: The visualized thyroid gland is normal. Stable mildly prominent mediastinal an d left hilar lymph nodes, largest measuring 9 mm in short axis. Heart is unremarkable. No pericardial effusion. SOFT TISSUES AND BONES: No acute osseous abnormality. No significant soft tissue finding. UPPER ABDOMEN: Unremarkable. IMPRESSION: Stable appearance of sluggish opacification within the right pulmonary artery distally with some trun cation of the distal branches. Findings may relate to postsurgical changes or sequelae of chronic thromboembolism. Stable chronic bilateral airspace opacities and bronchiectatic changes. The findings may relate to po stradiation sequelae, pulmonary edema, infection, or a combination of these. Stable left pulmonary solid appearing masses as above. Again, these are concerning for malignancy.
--- NOTE | 2024-03-25 15:48 | ER ---
Nurse's Notes [facility] Name: Ye Coleman Age: 68 yrs Sex: Male : 1955 Arrival Date: 03/25/2024 Time: 13:02 Bed 24 Private MD: Diagnosis: COPD/ Chronic obstructive pulmonary disease with (acute) exacerbation Presentation: 03/25 13:10 Chief complaint: EMS states: toned out to [facility]; pt. with SOB; hx of COPD; lung ar6 CA; pt. o\T\ was 75% on 2L NC on arrival; EMS placed pt. on 4L NC and 2 rounds of breathing treatments and pt. improved. Coronavirus screen: Client denies travel out of the [place] in the last 14 days. At this time, the client does not indicate any symptoms associated with coronavirus-19. Ebola Screen: Patient negative for fever greater than or equal to 101.5 degrees Fahrenheit, and additional compatible Ebola Virus Disease symptoms Patient denies exposure to infectious person. Patient denies travel to an Ebola-affected area in the 21 days before illness onset. No symptoms or risks identified at this time. Initial Sepsis Screen: Does the patient meet any 2 criteria? RR > 20 per min. HR > 90 bpm. Does the patient have a suspected source of infection? No. Patient's initial sepsis screen is negative. Risk Assessment: Do you want to hurt yourself or someone else? Patient reports no desire to harm self or others. Onset of symptoms was March 11, 2024. 13:10 Method Of Arrival: EMS: [facility] ar6 13:10 Acuity: EDMOND 3 ar6 Triage Assessment: 13:38 General: Appears in no apparent distress. uncomfortable, Behavior is cooperative, ar6 appropriate for age, anxious. Pain: Denies pain. EENT: Oral mucosa is moist. Neuro: Level of Consciousness is awake, alert, obeys commands, Oriented to person, place, time, situation. Cardiovascular: Capillary refill < 3 seconds. Respiratory: Airway is patent Respiratory effort is even, labored, Parent/caregiver reports the patient having shortness of breath at rest on exertion cough that is non-productive, dry. GI: Abdomen is round non-distended. : No signs and/or symptoms were reported regarding the genitourinary system. Derm: Skin is intact, is healthy with good turgor, Skin is dry, Skin is pink, warm \T\ dry. Musculoskeletal: No signs and/or symptoms reported regarding the musculoskeletal system. Historical: - Allergies: 13:38 GABAPENTIN; ar6 - PMHx: 13:38 Chronic obstructive lung disease; neuropathy; Lung Cancer; PE (Partial lobectomy -); ar6 - PSHx: 13:38 Appendectomy; Partial lobectomy - right upper lobe; ar6 - Immunization history:: Adult Immunizations up to date. - Infectious Disease History:: Denies. - Social history:: Smoking status: Patient/guardian denies using tobacco, but has a distant history of tobacco abuse. Screenin:40 [facility] ED Fall Risk Assessment (Adult) History of falling in the last 3 months, ar6 including since admission No falls in past 3 months (0 pts) Confusion or Disorientation No (0 pts) Intoxicated or Sedated No (0 pts) Impaired Gait No (0 pts) Mobility Assist Device Used No (0 pt) Altered Elimination No (0 pt) Score/Fall Risk Level 0 - 2 = Low Risk Oriented to surroundings, Maintained a safe environment, Educated pt \T\ family on fall prevention, incl call for assistance when getting out of bed, Hourly rounding (assess needs \T\ fall precautionary measures) done. Abuse screen: Denies threats or abuse. Denies injuries from another. Nutritional screening: No deficits noted. Tuberculosis screening: No symptoms or risk factors identified. Assessment: 13:40 Reassessment: see triage assessment Patient states feeling better. ar6 Vital Signs: 13:10 BP 134 / 86; Pulse 99; Resp 26; Temp 98.4; Pulse Ox 99% on NC; Weight 58.97 kg; Height ar6 5 ft. 4 in. ; Pain 0/10; 13:38 BP 134 / 86; Pulse 116; Resp 26; Pulse Ox 99% on NC; ar6 17:04 BP 107 / 86; Pulse 98; Resp 18; Pulse Ox 100% on NC; ar6 19:08 BP 114 / 63; Pulse 108; Resp 20; Pulse Ox 100% on NC; ar6 19:22 BP 111 / 62; Pulse 104; Resp 20; Pulse Ox 98% on 4 lpm NC; ar6 20:34 BP 112 / 78; Pulse 102; Resp 20; Pulse Ox 99% on NC; ar6 13:10 Body Mass Index 22.31 (58.97 kg, 162.56 cm) ar6 13:10 Pain Scale: Adult ar6 ED Course: 13:06 Patient arrived in ED. ec2 13:09 Belle Lara FNP-C is [facility]. kb 13:09 Joaquin Pace MD is Attending Physician. kb 13:34 Milena Villatoro, RN is Primary Nurse. ar6 13:35 Blood Culture Adult (2) Sent. ar6 13:35 CBC with Diff Sent. ar6 13:35 CMP Sent. ar6 13:35 Lactate w/ 2H reflex if indic. Sent. ar6 13:35 Protime (+inr) Sent. ar6 13:35 Ptt, Activated Sent. ar6 13:38 Triage completed. ar6 13:38 Arm band placed on right wrist. ar6 13:40 Awaiting lab results, Awaiting radiology results. ar6 13:40 No provider procedures requiring assistance completed. Maintain EMS IV. Dressing ar6 intact. Good blood return noted. Site clean \T\ dry. Flushed with 10 mL NS. 13:40 Patient has correct armband on for positive identification. Placed in gown. Bed in low ar6 position. Call light in reach. Side rails up X 1. Provided Education on: plan of care. Client placed on continuous cardiac and pulse oximetry monitoring. NIBP monitoring applied. Door closed. Lights dimmed. Moved to private room. Warm blanket given. Head of bed elevated. 13:45 Chest Single View XRAY In Process Unspecified. EDMS 14:32 CT Chest For PE Angio In Process Unspecified. EDMS 15:47 Albino Butt is Hospitalizing Provider. kb Administered Medications: 14:34 Drug: NS 0.9% IV 1000 ml IV at 1000 ml once; to be given as a bolus over 60 minutes ar6 Route: IV; Rate: 1000 ml; Site: right wrist; 15:11 Follow up: Response: No adverse reaction; IV Status: Completed infusion; IV Intake: ar6 1000ml 15:11 Follow up: Response: No adverse reaction; IV Status: Completed infusion; IV Intake: ar6 1000ml 15:27 Drug: MethylPrednisoLONE IVP 125 mg IVP once Route: IVP; Site: right wrist; ar6 17:06 Follow up: Response: No adverse reaction ar6 19:11 Follow up: Response: No adverse reaction ar6 Medication: 13:40 VIS not applicable for this client. ar6 Intake: 15:11 IV: 1000ml; Total: 1000ml. ar6 15:11 IV: 1000ml; Total: 2000ml. ar6 Outcome: 15:47 Decision to Hospitalize by Provider. kb 22:09 Admitted to Med/surg accompanied by tech, via stretcher, with oxygen, ar6 22:09 Condition: stable 22:09 Patient left the ED. ar6 Signatures: Dispatcher [employer] EDBelle Fernando FNP-C FNP-Ckb Corral, Edwin, MD MD ec2 Milena Villatoro RN RN ar6 Corrections: (The following items were deleted from the chart) 19:57 19:22 BP 114 / 63; Pulse 104bpm; Resp 20bpm; Pulse Ox 98% 4 lpm Nasal Cannula; ar6 ar6 21:11 20:30 Notified ED physician of a critical lab result(s). troponin to AUDREY Odonnell ar6 ar6
--- NOTE | 2024-03-25 15:48 | EDPHYS ---
Physician Documentation [facility] Name: Ye Coleman Age: 68 yrs Sex: Male : 1955 Arrival Date: 03/25/2024 Time: 13:02 Bed 24 Private MD: ED Physician Joaquin Pace HPI: 03/25 13:10 This 68 yrs old Male presents to ER via Unassigned with complaints of kb shortness of breath. 13:11 Pt is a 68 year old male who presents for shortness of breath that is worse on exertion kb that started this morning. Pt has a history of COPD and lung CA, is on 2L O2 at all times. EMS reports O2 sat 75% on his home O2 upon arrival to scene. . 13:16 Granddaughter arrived and was able to give more information. States pt has been having kb shortness of breath for a while, but it has been worse over the last 2-3 week and steadily progressing. States pt had a lobectomy on the right side. Last cancer treatment was one year ago.. Historical: - Allergies: 13:38 GABAPENTIN; ar6 - PMHx: 13:38 Chronic obstructive lung disease; neuropathy; Lung Cancer; PE (Partial lobectomy -); ar6 - PSHx: 13:38 Appendectomy; Partial lobectomy - right upper lobe; ar6 - Immunization history:: Adult Immunizations up to date. - Infectious Disease History:: Denies. - Social history:: Smoking status: Patient/guardian denies using tobacco, but has a distant history of tobacco abuse. ROS: 13:10 Constitutional: As per HPI kb Exam: 13:10 Constitutional: This is a well developed, well nourished patient who is awake, alert, kb and in no acute distress. Head/Face: Normocephalic, atraumatic. ENT: Moist Mucous membranes Cardiovascular: Regular rate Abdomen/GI: Soft, non-tender. No distention Skin: Warm, dry with normal turgor. Normal color. MS/ Extremity: Pulses equal, no cyanosis. Neurovascular intact. Full, normal range of motion. Neuro: Awake and alert, GCS 15, oriented to person, place, time, and situation. Moves all extremities. Normal gait. 13:10 Respiratory: mild respiratory distress is noted, Respirations: labored breathing, that is mild, Breath sounds: decreased breath sounds, that are mild, are heard in the right upper lobe, right middle lobe, right lower lobe, right posterior upper lobe, right posterior middle lobe and right posterior lower lobe, 14:47 ECG was reviewed by the Attending Physician. kb Vital Signs: 13:10 BP 134 / 86; Pulse 99; Resp 26; Temp 98.4; Pulse Ox 99% on NC; Weight 58.97 kg; Height ar6 5 ft. 4 in. ; Pain 0/10; 13:38 BP 134 / 86; Pulse 116; Resp 26; Pulse Ox 99% on NC; ar6 17:04 BP 107 / 86; Pulse 98; Resp 18; Pulse Ox 100% on NC; ar6 19:08 BP 114 / 63; Pulse 108; Resp 20; Pulse Ox 100% on NC; ar6 19:22 BP 111 / 62; Pulse 104; Resp 20; Pulse Ox 98% on 4 lpm NC; ar6 20:34 BP 112 / 78; Pulse 102; Resp 20; Pulse Ox 99% on NC; ar6 13:10 Body Mass Index 22.31 (58.97 kg, 162.56 cm) ar6 13:10 Pain Scale: Adult ar6 MDM: 13:09 Medical Screening Exam initiated kb 13:11 Data reviewed: vital signs, nurses notes. kb 13:18 Historians other than the Patient: EMS: [email or web address]. Family Member: granddaughter. kb 15:46 Differential diagnosis: CHF exacerbation, Chronic Obstructive Pulmonary Disease kb pulmonary edema, Pulmonary Embolism. Consideration of Admission/Observation Patient was admitted/placed on observation. Escalation of care including admission/observation considered. Management of patient was discussed with the following: Hospitalist: hospitalist team, pt accepted for admission under Dr Butt. Care significantly affected by the following chronic conditions: Chronic Obstructive Pulmonary Disease, Lung CA. Counseling: I had a detailed discussion with the patient and/or guardian regarding the historical points, exam findings, and any diagnostic results supporting the discharge/admit diagnosis, lab results, radiology results, the need for further work-up and treatment in the hospital. 03/25 13:11 Order name: Blood Culture Adult (2) kb 03/25 13:11 Order name: CBC with Diff; Complete Time: 13:47 kb 03/25 13:11 Order name: CMP; Complete Time: 14:05 kb 03/25 13:11 Order name: Lactate w/ 2H reflex if indic.; Complete Time: 14:05 kb 03/25 13:11 Order name: Protime (+inr); Complete Time: 13:55 kb 03/25 13:11 Order name: Ptt, Activated; Complete Time: 13:55 kb 03/25 16:29 Order name: Urinalysis w/ reflexes; Complete Time: 19:03 EDMS 03/25 16:29 Order name: Basic Metabolic Panel EDMS 03/25 16:29 Order name: Basic Metabolic Panel EDMS 03/25 16:29 Order name: Basic Metabolic Panel EDMS 03/25 16:29 Order name: Basic Metabolic Panel EDMS 03/25 16:29 Order name: Basic Metabolic Panel EDMS 03/25 16:29 Order name: Basic Metabolic Panel EDMS 03/25 16:29 Order name: Basic Metabolic Panel EDMS 03/25 16:29 Order name: Basic Metabolic Panel EDMS 03/25 16:29 Order name: CBC with Automated Diff EDMS 03/25 16:29 Order name: CBC with Automated Diff EDMS 03/25 16:29 Order name: CBC with Automated Diff EDMS 03/25 16:29 Order name: CBC with Automated Diff EDMS 03/25 16:29 Order name: CBC with Automated Diff EDMS 03/25 16:29 Order name: CBC with Automated Diff EDMS 03/25 16:29 Order name: CBC with Automated Diff EDMS 03/25 16:29 Order name: CBC with Automated Diff EDMS 03/25 16:29 Order name: Magnesium EDMS 03/25 16:29 Order name: Magnesium EDMS 03/25 16:29 Order name: Magnesium EDMS 03/25 16:29 Order name: Magnesium EDMS 03/25 16:29 Order name: Magnesium EDMS 03/25 16:29 Order name: Magnesium EDMS 03/25 16:29 Order name: Magnesium EDMS 03/25 16:29 Order name: Magnesium EDMS 03/25 16:29 Order name: Phosphorus EDMS 03/25 16:29 Order name: Phosphorus EDMS 03/25 16:29 Order name: Phosphorus EDMS 03/25 16:29 Order name: Phosphorus EDMS 03/25 16:29 Order name: Phosphorus EDMS 03/25 16:29 Order name: Phosphorus EDMS 10/15 16:29 Order name: Phosphorus EDUT 03/25 16:29 Order name: Phosphorus EDUT 03/25 13:11 Order name: Chest Single View XRAY; Complete Time: 15:55 kb 03/25 14:11 Order name: CT Chest For PE Angio; Complete Time: 15:38 kb 03/25 16:29 Order name: CONS Physician Consult EDUT 03/25 16:29 Order name: Physical Therapy Consult EDUT 03/25 13:11 Order name: Cardiac monitoring; Complete Time: 13:34 kb 03/25 13:11 Order name: EKG - Nurse/Tech; Complete Time: 14:11 kb 03/25 13:11 Order name: IV Saline Lock - Large Bore; Complete Time: 13:35 kb 03/25 13:11 Order name: Labs collected and sent; Complete Time: 13:35 kb 03/25 13:11 Order name: O2 Per Protocol; Complete Time: 13:35 kb 03/25 13:11 Order name: O2 Sat Monitoring; Complete Time: 13:35 kb 03/25 13:11 Order name: Vital Signs; Complete Time: 13:35 kb EC:47 Rate is 117 beats/min. Rhythm is regular. QRS [place] is Normal. [place] interval is normal at kb 150 msec. QRS interval is normal at 72 msec. QT interval is normal at 457 msec. Administered Medications: 14:34 Drug: NS 0.9% IV 1000 ml IV at 1000 ml once; to be given as a bolus over 60 minutes ar6 Route: IV; Rate: 1000 ml; Site: right wrist; 15:11 Follow up: Response: No adverse reaction; IV Status: Completed infusion; IV Intake: ar6 1000ml 15:11 Follow up: Response: No adverse reaction; IV Status: Completed infusion; IV Intake: ar6 1000ml 15:27 Drug: MethylPrednisoLONE IVP 125 mg IVP once Route: IVP; Site: right wrist; ar6 17:06 Follow up: Response: No adverse reaction ar6 19:11 Follow up: Response: No adverse reaction ar6 Disposition Summary: 03/25/24 15:47 Hospitalization Ordered Notes: Hospitalization Status: Observation kb Provider: Albino Butt Condition: Stable kb Problem: new kb Symptoms: are unchanged kb Bed/Room Type: Standard kb Location: Telemetry/MedSurg (observation)(03/25/24 19:14) bd Room Assignment: 221(10/15/24 20:23) [facility] Diagnosis - COPD/ Chronic obstructive pulmonary disease with (acute) exacerbation kb Forms: - Medication Reconciliation Form kb - SBAR form kb - Leadership Thank You Letter kb Signatures: Dispatcher [employer] EDMS Belle Lara, JUS VENTURA-Lorri PhanJanet montes Roxana Busch RN RN ap3 Risa Jennings [facility] Milena Villatoro RN RN ar6 Corrections: (The following items were deleted from the chart) 13:12 13:12 Chest Single View+RAD.RAD.BRZ ordered. EDMS EDMS 13:16 13:11 Pt is a 68 year old male who presents for shortness of breath that is worse on kb exertion that started this morning. Pt has a history of COPD and lung CA, is on 2L O2 at all times. EMS reports O2 sat 75% on his home O2 upon arrival to scene. . kb 14:11 14:11 Chest For PE Angio+CT.RAD.BRZ ordered. EDUT EDMS 17:26 15:47 Telemetry/MedSurg (observation) kb bd 17:26 15:47 kb bd 19:14 17:26 [facility] ER HOLD bd bd 19:14 17:26 ERHOLD- bd bd 19:30 19:14 416 bd ap3 20:23 19:30 ap3 [facility]
--- NOTE | 2024-03-25 15:51 | RAD REPORT ---
EXAMINATION: ONE VIEW CHEST XR CLINICAL INDICATION: Male, 68 years old.,DYSPNEA TECHNIQUE: Frontal chest projection is submitted. Examination is limited by patient positioning and t echnique. COMPARISON: 02/18/2024 FINDINGS: Patchy bilateral airspace opacities more pronounced on the right, stable except for areas of minimall y improved aeration in the upper lungs. Postsurgical changes in the right upper lung again seen. No pneumothorax or sizable effusion. The heart is normal in size. IMPRESSION: Mild partial improvement of bilateral patchy airspace opacities as above.
--- NOTE | 2024-03-25 16:00 | P.HP ---
Certification for Inpatient Patient admitted to: Inpatient With expected LOS: >2 Midnights Patient will require the following post-hospital care: None Practitioner: I am a practitioner with admitting privileges, knowledge of patient current condition, hospital course, and medical plan of care. Services: Services provided to patient in accordance with Admission requirements found in Title 42 Section 412.3 of the Code of Federal Regulations Patient History Date of Service: 03/25/24 Reason for admission: Acute hypoxic respiratory distress History of Present Illness: Ye Coleman is a 68 year old male with Pmhx lung cancer, COPD on 2 L home O2, right partial lobectomy, chronic pulmonary embolis who presented to ED with chief complaint of shortness of breath chest gotten worse in the last 2 to 3 weeks and steadily progressing. He was recently admitted last month for similar issue and feels he has not recovered yet. Granddaughter at the bedside, reports that he was recommended hospice in the past that he did not agree. Laboratory evaluation bicarb 35, serum glucose 115, calcium 10.3, UA negative for infectious process Initial vitals BP 134 / 86; Pulse 99; Resp 26; Temp 98.4; Pulse Ox 99% on NC CTA chest reports "Stable appearance of sluggish opacification within the right pulmonary artery distally with some truncation of the distal branches. Findings may relate to postsurgical changes or sequelae of chronic thromboembolism. Stable chronic bilateral airspace opacities and bronchiectatic changes. The findings may relate to postradiation sequelae, pulmonary edema, infection, or a combination of these. Stable left pulmonary solid appearing masses as above. Again, these are concerning for malignancy." Chest xray reports "Mild partial improvement of bilateral patchy airspace opacities as above" Ye will be admitted to hospitalist service for further evaluation and treatment of acute hypoxic/hypercapnic respiratory failure Allergies No Known Allergies Allergy (Verified 02/20/22 13:27) Home Medications: Aspirin [Aspirin EC 81 MG] 81 mg PO DAILY 30 Days #30 tablet. 06/15/21 Albuterol Neb [Proventil 0.083% Neb Soln] 2.5 mg IH Q6HP PRN #60 amp 05/23/23 Ipratropium Neb [Atrovent*] 0.5 mg NEB Q6HP PRN #60 amp 05/23/23 Nebulizer 1 each MC DAILY #1 ea 05/23/23 Nebulizer Accessories [Aeroneb Go] 1 each MC DAILY #1 ea 05/23/23 Apixaban [Eliquis] 5 mg PO BID #74 tab 11/21/23 clonazePAM [Clonazepam] 0.5 mg PO BID 7 Days #15 tab 11/21/23 predniSONE [Deltasone*] 10 mg PO BID 10 Days #20 tab 11/21/23 LORazepam [Ativan*] 0.5 mg PO BID PRN 02/19/24 Melatonin 5 mg PO DAILY 02/19/24 Mirtazapine [Remeron*] 15 mg PO BEDTIME 02/19/24 Trazodone [Desyrel*] 50 mg PO DAILY 02/19/24 predniSONE [Prednisone*] 20 mg PO BID 7 Days #14 tab 02/20/24 - Past Medical/Surgical History Diabetic: No -: Metastatic lung cancer -: COPD -: Pulmonary embolism -: Neuropathy -: Right lower lobe lobectomy -: appendectomy Psychosocial/ Personal History: Lives at home. Has O2, Nebulizer - Family History Father -: Heart disease, Stroke Mother Notes: old age - Social History Smoking Status: Former smoker Alcohol use: No CD- Drugs: No Caffeine use: No Review of Systems Respiratory: Shortness of Breath, SOB with Excertion Physical Examination - Physical Exam General: Alert, In no apparent distress, Oriented x3 HEENT: Atraumatic, Normocephalic, PERRLA Neck: Supple, 2+ carotid pulse no bruit Respiratory: Clear to auscultation bilaterally, Normal air movement, Diminished Cardiovascular: Normal pulses, Regular rate/rhythm, Normal S1 S2 Capillary refill: <2 Seconds Gastrointestinal: Normal bowel sounds, Soft and benign Musculoskeletal: No clubbing Integumentary: No rashes Neurological: Normal speech, Normal tone - Studies Laboratory Data (last 24 hrs) 03/25/24 03/25/24 03/25/24 13:27 13:27 13:27 WBC 10.50 Hgb 12.3 L Hct 37.6 L Plt Count 413 H PT 12.4 INR 1.11 APTT 25.5 Sodium 135 L Potassium 3.8 BUN 9 Creatinine 0.65 L Glucose 115 H Total Bilirubin 0.3 AST 23 ALT 20 Alkaline Phosphatase 90 Assessment and Plan - Plan Assessment and plan Acute hypoxic/hypercarbic respiratory Failure Chronic pulmonary embolus History of COPD on 2 L nasal cannula -Chest x-ray reports "Mild partial improvement of bilateral patchy airspace opacities as above" -CTA chest reports ""Stable appearance of sluggish opacification within the right pulmonary artery distally with some truncation of the distal branches. Findings may relate to postsurgical changes or sequelae of chronic thromboembolism. Stable chronic bilateral airspace opacities and bronchiectatic changes. The findings may relate to postradiation sequelae, pulmonary edema, infection, or a combination of these. Stable left pulmonary solid appearing masses as above. Again, these are concerning for malignancy." -BiPAP as needed -Consult Dr. Royal -Dedert Eliqustewart -steroids, duonebs -rocephin/Azithromycin -Follow Blood cultures Right lobectomy secondary to cancer -Follow-up outpatient -Last treatment over a year ago History of neuropathy -Continue medication DVT PPx Lovenox Full code LOS 2 days Discharge Plan: Home Plan to discharge in: 24 Hours - Advance Directives Does patient have a Living Will: No Does patient have a Durable POA for Healthcare: No
[2024-03-25] MEDS ORDERED: ACETAMINOPHEN 325 MG TABLET PO PRN (16:21)
[2024-03-25] MEDS: ENOXAPARIN 40 MG/0.4 ML SQ SCH (17:00)
[2024-03-25] MEDS ORDERED: ENOXAPARIN 40 MG/0.4 ML SQ ONE (18:26)
[2024-03-25 18:55] LABS: Urine Bilirubin NEGATIVE (Negative); Urine Blood Negative (Negative); Urine Clarity Clear (Clear); Urine Color Light-Yellow (Yellow); Urine Glucose NEGATIVE (Negative); Urine Ketones NEGATIVE (Negative); Urine Microscopic Reflex YN NO UMIC; Urine Nitrite NEGATIVE (Negative); Urine Protein NEGATIVE (Negative); Urine Urobilinogen Normal (Normal); Urine pH 5.5 (5.0-7.0)
[2024-03-25 18:56] LABS: Specific Gravity > 1.030 (1.005-1.030)
[2024-03-25] MEDS ORDERED: PNEUMOCOCCAL VACCINE 0.5 ML IMVAC ONE (19:00)
[2024-03-25] MEDS ORDERED: FLU (Fluarix Triv) TS24-25(6MOS UP)/PF 45 MCG/0.5 ML Syringe IM ONE (19:00)
[2024-03-25] MEDS: AZITHROMYCIN IV 500 MG in NA CHLORIDE 0.9% 250 ML IVPB SCH (22:50)
[2024-03-25] MEDS: CEFTRIAXONE 1,000 MG in NA CHLORIDE 0.9% 50 ML IVPB SCH (22:50)
[2024-03-25 23:21] VITALS: BMI 23.1
[2024-03-26] MEDS: IPRATROPIUM BROM 0.5MG/2.5ML NEB SCH (01:07)
[2024-03-26] MEDS: ALBUTEROL 2.5 MG/3 ML NEB SOL NEB SCH (01:07)
[2024-03-26 04:45] LABS: Absolute Lymphocytes (CBC) 0.4 K/uL (0.7-4.9); Absolute Monocytes 0.1 K/uL (0.1-1.3); Absolute Neutrophil 4.1 K/uL (1.8-8.0); Basophils % 0.2 % (0-1.3); Hematocrit 34.2 % (39.6-49.0); Hemoglobin 11.4 g/dL (13.6-17.9); Lymphocytes % 7.8 % (15.3-44.8); MCH 29.9 pg (27.0-35.0); MCHC 33.2 g/dL (32.0-36.0); MCV 90.1 fL (80-100); Monocytes % 2.7 % (3.3-12.3); Neutrophils % 89.3 % (41.7-73.7); Platelets 345 thou/uL (152-406); RBC Red Blood Cell Count 3.79 M/uL (4.33-5.43)
[2024-03-26 04:46] LABS: Phosphorus 2.4 mg/dL (2.5-4.9)
[2024-03-26 08:58] LABS: Platelet Estimate ADEQ; White Blood Cell Scan OK (OK)
[2024-03-26 08:59] LABS: Blood Morphology Comment NOT SEEN (NOT SEEN)
[2024-03-26 09:00] VITALS: O2SAT 98
[2024-03-26] MEDS: POTASS/SODIUM PHOSPHATE 1 PKT POWD.PACK PO SCH (11:00)
[2024-03-26] MEDS: METHYLPREDNISOLONE 40 MG INJ IV SCH (11:01)
[2024-03-26] MEDS: FLU (Fluarix Triv) TS24-25(6MOS UP)/PF 45 MCG/0.5 ML Syringe IM ONE (11:58)
--- NOTE | 2024-03-26 12:21 | P.CNS ---
Date of Consult: 03/26/24 Reason for Consult: Resp distress Chief Complaint: Acute hypoxic respiratory distress Allergies No Known Allergies Allergy (Verified 02/20/22 13:27) Home Medications: Aspirin [Aspirin EC 81 MG] 81 mg PO DAILY 30 Days #30 tablet. 06/15/21 Albuterol Neb [Proventil 0.083% Neb Soln] 2.5 mg IH Q6HP PRN #60 amp 05/23/23 Ipratropium Neb [Atrovent*] 0.5 mg NEB Q6HP PRN #60 amp 05/23/23 Nebulizer 1 each MC DAILY #1 ea 05/23/23 Nebulizer Accessories [Aeroneb Go] 1 each MC DAILY #1 ea 05/23/23 Apixaban [Eliquis] 5 mg PO BID #74 tab 11/21/23 clonazePAM [Clonazepam] 0.5 mg PO BID 7 Days #15 tab 11/21/23 predniSONE [Deltasone*] 10 mg PO BID 10 Days #20 tab 11/21/23 LORazepam [Ativan*] 0.5 mg PO BID PRN 02/19/24 Melatonin 5 mg PO DAILY 02/19/24 Mirtazapine [Remeron*] 15 mg PO BEDTIME 02/19/24 Trazodone [Desyrel*] 50 mg PO DAILY 02/19/24 predniSONE [Prednisone*] 20 mg PO BID 7 Days #14 tab 02/20/24 - Past Medical/Surgical History Diabetic: No -: Metastatic lung cancer -: COPD -: Pulmonary embolism -: Neuropathy -: Right lower lobe lobectomy -: appendectomy Psychosocial/ Personal History: Lives at home. Has O2, Nebulizer - Family History Father Medical History: Heart disease, Stroke Mother Notes: old age - Social History Smoking Status: Former smoker Alcohol use: No CD- Drugs: No Caffeine use: No Place of Residence: Home Physical Examination Temp Pulse Resp BP Pulse Ox 97.4 F 91 H 17 102/63 92 03/26/24 08:00 03/26/24 08:00 03/26/24 10:40 03/26/24 08:00 03/26/24 08:00 Laboratory Data (last 24 hrs) 03/25/24 03/25/24 03/25/24 13:27 13:27 13:27 WBC 10.50 Hgb 12.3 L Hct 37.6 L Plt Count 413 H PT 12.4 INR 1.11 APTT 25.5 Sodium 135 L Potassium 3.8 BUN 9 Creatinine 0.65 L Glucose 115 H Total Bilirubin 0.3 AST 23 ALT 20 Alkaline Phosphatase 90
--- NOTE | 2024-03-26 12:27 | P.CNS ---
Chief Complaint: Acute hypoxic respiratory distress History of Present Illness: Dyspnea is worse spoke to granddaughter is becoming progressively worse unable to do much around the house without becoming short of breath he wants to try some prednisone Allergies No Known Allergies Allergy (Verified 02/20/22 13:27) Home Medications: Aspirin [Aspirin EC 81 MG] 81 mg PO DAILY 30 Days #30 tablet. 06/15/21 Albuterol Neb [Proventil 0.083% Neb Soln] 2.5 mg IH Q6HP PRN #60 amp 05/23/23 Ipratropium Neb [Atrovent*] 0.5 mg NEB Q6HP PRN #60 amp 05/23/23 Nebulizer 1 each MC DAILY #1 ea 05/23/23 Nebulizer Accessories [Aeroneb Go] 1 each MC DAILY #1 ea 05/23/23 Apixaban [Eliquis] 5 mg PO BID #74 tab 11/21/23 clonazePAM [Clonazepam] 0.5 mg PO BID 7 Days #15 tab 11/21/23 predniSONE [Deltasone*] 10 mg PO BID 10 Days #20 tab 11/21/23 LORazepam [Ativan*] 0.5 mg PO BID PRN 02/19/24 Melatonin 5 mg PO DAILY 02/19/24 Mirtazapine [Remeron*] 15 mg PO BEDTIME 02/19/24 Trazodone [Desyrel*] 50 mg PO DAILY 02/19/24 predniSONE [Prednisone*] 20 mg PO BID 7 Days #14 tab 02/20/24 - Past Medical/Surgical History Diabetic: No -: Metastatic lung cancer -: COPD -: Pulmonary embolism -: Neuropathy -: Right lower lobe lobectomy -: appendectomy Psychosocial/ Personal History: Lives at home. Has O2, Nebulizer - Family History Father Medical History: Heart disease, Stroke Mother Notes: old age - Social History Smoking Status: Former smoker Alcohol use: No CD- Drugs: No Caffeine use: No Place of Residence: Home Review of Systems is unable to be obtained Physical Examination Temp Pulse Resp BP Pulse Ox 97.4 F 91 H 17 102/63 92 03/26/24 08:00 03/26/24 08:00 03/26/24 10:40 03/26/24 08:00 03/26/24 08:00 General: Alert, Oriented x3 Respiratory: Crackles/rales (Tensive crackles on the right side) Cardiovascular: No edema, Regular rate/rhythm, Normal S1 S2 Laboratory Data (last 24 hrs) 03/25/24 03/25/24 03/25/24 13:27 13:27 13:27 WBC 10.50 Hgb 12.3 L Hct 37.6 L Plt Count 413 H PT 12.4 INR 1.11 APTT 25.5 Sodium 135 L Potassium 3.8 BUN 9 Creatinine 0.65 L Glucose 115 H Total Bilirubin 0.3 AST 23 ALT 20 Alkaline Phosphatase 90 - Problems (1) Chronic respiratory failure with hypoxia Current Visit: No Status: Acute Plan: Patient is 68 years of age he is terminally ill from lung cancer extensive disease he also has stage IV lung cancer fused hospice discussed with granddaughter he continues to complain of dyspnea and apparently he is compliant with his medication is also has thromboembolic disease continue with anticoagulation add steroids labs chemistries all reviewed no change chest x-ray CT scan no change no evidence of thromboembolism resume his Eliquis at home on prednisone 10 mg twice a day for 2 weeks to follow-up with me new with nebulized bronchodilators started patient back on mirtazapine he has underlying significant anxiety and depression resume clonazepam before discharge
--- NOTE | 2024-03-26 13:20 | P.DS ---
Admission Date: 03/25/24 Discharge Date: 03/26/24 Disposition: ROUTINE DISCHARGE Discharge Condition: FAIR Reason for Admission: Acute hypoxic respiratory distress Brief History of Present Illness: Diagnosis Acute hypoxic/hypercarbic respiratory Failure in a patient with chronic respiratory failure with hypoxia Chronic pulmonary embolus History of COPD on 2 L nasal cannula Right lobectomy secondary to cancer History of neuropathy HPI 03/25/2024 Ye Coleman is a 68 year old male with Pmhx lung cancer, COPD on 2 L home O2, right partial lobectomy, chronic pulmonary embolis who presented to ED with chief complaint of shortness of breath chest gotten worse in the last 2 to 3 weeks and steadily progressing. He was recently admitted last month for similar issue and feels he has not recovered yet. Granddaughter at the bedside, reports that he was recommended hospice in the past that he did not agree. Laboratory evaluation bicarb 35, serum glucose 115, calcium 10.3, UA negative for infectious process Initial vitals BP 134 / 86; Pulse 99; Resp 26; Temp 98.4; Pulse Ox 99% on NC CTA chest reports "Stable appearance of sluggish opacification within the right pulmonary artery distally with some truncation of the distal branches. Findings may relate to postsurgical changes or sequelae of chronic thromboembolism. Stable chronic bilateral airspace opacities and bronchiectatic changes. The findings may relate to postradiation sequelae, pulmonary edema, infection, or a combination of these. Stable left pulmonary solid appearing masses as above. Again, these are concerning for malignancy." Chest xray reports "Mild partial improvement of bilateral patchy airspace opacities as above" Ye will be admitted to hospitalist service for further evaluation and treatment of acute hypoxic/hypercapnic respiratory failure Hospital Course: [text] is a pleasant [text] with a past medical history significant for [text] who was admitted to the [facility] on [text] for [text]. [text] On [date], [text] was seen on morning rounds and deemed medically stable for discharge. [text] was discharged with instructions to schedule follow-up appointments with [text]. [text] was provided prescriptions for Prednisone and Remeron . General: AAOx3, NAD HEENT: mucus membranes moist, nare normal Head/Neck: Normocephalic, atraumatic, neck supple Respiratory: symmetrical chest expansion, no accessory muscles used, Wheezing bilaterally, on 2 LNC Cardiac: RRR, no murmurs or gallops noted Extremities: No edema present, peripheral pulses 2+ Abdominal: soft, NT/ND Skin: warm pink and dry Neurological: clear speech, appropriate Psych: normal mood and affect, Judgement appropriate Vital Signs/Physical Exam: Temp Pulse Resp BP Pulse Ox 97.4 F 91 H 17 102/63 92 03/26/24 08:00 03/26/24 08:00 03/26/24 10:40 03/26/24 08:00 03/26/24 08:00 Laboratory Data at Discharge: WBC 4.60 thou/uL (4.3-10.9) 03/26/24 04:11 Hgb 11.4 g/dL (13.6-17.9) L 03/26/24 04:11 Hct 34.2 % (39.6-49.0) L 03/26/24 04:11 Plt Count 345 thou/uL (152-406) 03/26/24 04:11 PT 12.4 SECONDS (9.4-12.5) 03/25/24 13:27 INR 1.11 03/25/24 13:27 APTT 25.5 SECONDS (24.3-36.9) 03/25/24 13:27 Sodium 138 mEq/L (136-145) 03/26/24 04:11 Potassium 4.0 mEq/L (3.5-5.1) 03/26/24 04:11 BUN 8 mg/dL (7-18) 03/26/24 04:11 Creatinine 0.57 mg/dL (0.70-1.30) L 03/26/24 04:11 Glucose 147 mg/dL (74-106) H 03/26/24 04:11 Phosphorus 2.4 mg/dL (2.5-4.9) L 03/26/24 04:11 Magnesium 2.0 mg/dL (1.6-2.4) 03/26/24 04:11 Total Bilirubin 0.3 mg/dL (0.2-1.0) 03/25/24 13:27 AST 23 U/L (15-37) 03/25/24 13:27 ALT 20 U/L (16-61) 03/25/24 13:27 Alkaline Phosphatase 90 U/L (45-117) 03/25/24 13:27 Home Medications: Aspirin [Aspirin EC 81 MG] 81 mg PO DAILY 30 Days #30 tablet. 06/15/21 Albuterol Neb [Proventil 0.083% Neb Soln] 2.5 mg IH Q6HP PRN #60 amp 05/23/23 Ipratropium Neb [Atrovent*] 0.5 mg NEB Q6HP PRN #60 amp 05/23/23 Nebulizer 1 each MC DAILY #1 ea 05/23/23 Nebulizer Accessories [Aeroneb Go] 1 each MC DAILY #1 ea 05/23/23 Apixaban [Eliquis] 5 mg PO BID #74 tab 11/21/23 clonazePAM [Clonazepam] 0.5 mg PO BID 7 Days #15 tab 11/21/23 LORazepam [Ativan*] 0.5 mg PO BID PRN 02/19/24 Melatonin 5 mg PO DAILY 02/19/24 Mirtazapine [Remeron*] 15 mg PO BEDTIME 02/19/24 Trazodone [Desyrel*] 50 mg PO DAILY 02/19/24 Mirtazapine [Remeron*] 15 mg PO BEDTIME 30 Days #30 tab 03/26/24 Prednisone [Willam] 10 mg PO BID 17 Days #45 tab 03/26/24 New Medications: Prednisone [Willam] 10 mg PO BID 17 Days #45 tab Mirtazapine [Remeron*] 15 mg PO BEDTIME 30 Days #30 tab Physician Discharge Instructions: 1. Please call and schedule a follow-up appointment with your PCP in 3-5 days - Please follow-up with your PCP for medication refills/adjustments -Continue medications as prescribed 2. Please call and schedule a follow-up appointment with Dr. Royal in 3-5 days 3. Continue heart healthy diet 4. activity restrictions fall precautions 5. Return to the ED if symptoms worsen New medications Prednisone will be tapered 1) 10 mg twice daily x 7 days 2) 10 mg daily x 7 days 3) 5 mg daily x 3 days Diet: Low sodium Activity: Fall precautions Followup: Skinny Royal MD [ACTIVE - CAN ADMIT] - NONE,NONE [Primary Care Provider] -
[2024-03-26 16:56] VITALS: BP 90/54; TEMP 97.1
[2024-03-26] MEDS ORDERED: PNEUMOCOCCAL VACCINE 0.5 ML IMVAC ONE (18:00)
[2024-03-26] MEDS ORDERED: MIRTAZAPINE 15 MG TAB PO SCH (21:00)
[2024-03-26] MEDS ORDERED: clonazePAM 0.5 MG TAB PO SCH (21:00)
[2024-03-26] MEDS ORDERED: predniSONE 20 MG TAB PO SCH (21:00)
[2024-03-26] MEDS ORDERED: APIXABAN 5 MG TABLET PO SCH ×2 (21:00)
--- NOTE | 2024-03-27 11:57 | EKG ---
Test Date: 2024-03-25 Test Time: 14:08:29 [place] Mixer: BETTE MEASUREMENT RESULTS: Intervals: Rate: 117 SD: 150 QRSD: 72 QT: 328 QTc: 457 [place]: P: 28 SD: 150 QRS: 127 T: 23 INTERPRETIVE STATEMENTS: Sinus tachycardia Right atrial enlargement Left posterior fascicular block Abnormal ECG Compared to ECG 02/18/2024 09:27:54 Atrial abnormality now present Left posterior fascicular block now present Sinus rhythm no longer present Prolonged QT interval no longer present Electronically Signed On 03-27-24 11:53:01 CDT by Dwight Vazquez
== END 2024-03-26 18:10 | disposition home or self-care (01) ==
LOC: ER 13:02 → ERHOLD 16:21 → 2ND 21:08
PROVIDERS: ADMIT Internal Medicine; ATTEND Internal Medicine
DX: J96.22 Acute and chronic respiratory failure with hypercapnia (principal); J96.21 Acute and chronic respiratory failure with hypoxia; C34.90 Malignant neoplasm of unspecified part of unspecified bronchus or lung; J44.9 Chronic obstructive pulmonary disease, unspecified; I27.82 Chronic pulmonary embolism; G62.9 Polyneuropathy, unspecified; Z99.81 Dependence on supplemental oxygen; Z85.118 Personal history of other malignant neoplasm of bronchus and lung; Z90.2 Acquired absence of lung [part of]
CPT/HCPCS: 93005; 87040 ×2; 85025 ×2; 80048; 36415; 83735; 84100; 85610; 83605; 85730; 81003; 80053; 71275; 71045; 97161; 97530 ×2; 94640; Q9967; J7613 ×3; J7644 ×3; J1650 ×2; J2919 ×2; J7050; J7030; J0696 ×2; 96361; 96374; 99285; G0378

== ENCOUNTER 2024-03-31 14:24 | Emergency (ER) | payer OTHER ==
--- NOTE | 2024-03-31 17:43 | EDPHYS ---
[facility] Name: Ye Coleman Age: 68 yrs Sex: Male : 1955 Arrival Date: 03/31/2024 Time: 14:24 Bed 18 Private MD: ED Physician Tal Carpenter HPI: 03/31 17:32 This 68 yrs old Male presents to ER via EMS with complaints of Shortness Of rt Breath. 17:32 Patient with history of terminal lung cancer on oxygen via oxygen concentrator presents rt to the ED with shortness of breath, states that his oxygen concentrator stopped functioning. 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 Patient's oxygenation corrected quickly when placed on supplemental O2 and he has no complaints after being placed on O2. Symptoms are moderate in severity, no other aggravating or alleviating factors.. Historical: - Allergies: 14:36 GABAPENTIN; mb9 - PMHx: 14:36 Chronic obstructive lung disease; Lung Cancer; neuropathy; PE (Partial lobectomy -); mb9 - PSHx: 14:36 Appendectomy; Partial lobectomy - right upper lobe; mb9 - Immunization history:: Adult Immunizations up to date. - Infectious Disease History:: Denies. - Social history:: Smoking status: Patient/guardian denies using tobacco. - Family history:: not pertinent. ROS: 17:32 Constitutional: Negative for fever, chills, and weight loss, Cardiovascular: Negative rt for chest pain, palpitations, and edema, Abdomen/GI: Negative for abdominal pain, nausea, vomiting, diarrhea, and constipation, MS/Extremity: Negative for injury and deformity, Skin: Negative for injury, rash, and discoloration, 17:32 Respiratory: Positive for shortness of breath, Negative for cough, Exam: 17:32 Constitutional: This is a well developed, well nourished patient who is awake, alert, rt and in no acute distress. Head/Face: Normocephalic, atraumatic. Chest/axilla: Normal chest wall appearance and motion. Nontender with no deformity. No lesions are appreciated. Cardiovascular: Regular rate and rhythm with a normal S1 and S2. No gallops, murmurs, or rubs. Normal PMI, no JVD. No pulse deficits. Abdomen/GI: Soft, non-tender, with normal bowel sounds. No distension or tympany. No guarding or rebound. No evidence of tenderness throughout. Skin: Warm, dry with normal turgor. Normal color with no rashes, no lesions, and no evidence of cellulitis. MS/ Extremity: Pulses equal, no cyanosis. Neurovascular intact. Full, normal range of motion. Neuro: Awake and alert, GCS 15, oriented to person, place, time, and situation. Cranial nerves II-XII grossly intact. Motor strength 5/5 in all extremities. Sensory grossly intact. Cerebellar exam normal. Normal gait. 17:32 Respiratory: Wheezes heard diffusely, no respiratory distress, Vital Signs: 14:37 BP 129 / 71; Pulse 125; Resp 30; Temp 98.1; Pulse Ox 92% on 5 lpm NC; Weight 56.7 kg; mb9 Height 5 ft. 5 in. ; Pain 0/10; 15:00 BP 108 / 83; Pulse 110; Resp 22; Pulse Ox 99% on R/A; mb9 17:43 BP 115 / 76; Pulse 105; Resp 18; Pulse Ox 99% on 3 lpm NC; mb9 14:37 Body Mass Index 20.80 (56.70 kg, 165.1 cm) mb9 14:37 Pain Scale: Adult mb9 MDM: 14:30 Medical Screening Exam initiated rt 17:32 Differential diagnosis: COPD, lung cancer. Data reviewed: vital signs, nurses notes. 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 Royal, patient's physician, states that no workup is indicated at this time, patient only needs another oxygen concentrator and then may be discharged following that.. Test considered but Not performed: Other Details Patient is only hypoxic because his oxygen concentrator stopped working. When he is placed on supplemental O2 is at baseline, x-ray, EKG, labs not indicated. Care significantly affected by the following chronic conditions: Chronic Obstructive Pulmonary Disease. Administered Medications: No medications were administered Disposition Summary: 03/31/24 17:42 Discharge Ordered Notes: Location: Home rt Problem: chronic rt Symptoms: have improved rt Condition: Stable rt Diagnosis - COPD/ Chronic obstructive pulmonary disease, unspecified rt Followup: rt - With: Private Physician - When: 2 - 3 days - Reason: Discharge Instructions: - Discharge Summary Sheet rt - Chronic Obstructive Pulmonary Disease rt Forms: - Medication Reconciliation Form rt - Antibiotic Education rt - Prescription Opioid Use rt - Patient Portal Instructions rt - Leadership Thank You Letter rt Signatures: Amber Oh RN RN mb9 Tal Carpenter MD MD rt
--- NOTE | 2024-03-31 17:43 | ER ---
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 Coronavirus screen: Vaccine status: Patient reports receiving the 2nd dose of the covid vaccine. Ebola Screen: No symptoms or risks identified at this time. Initial Sepsis Screen: Does the patient meet any 2 criteria? No. Patient's initial sepsis screen is negative. Does the patient have a suspected source of infection? No. Patient's initial sepsis screen is negative. Risk Assessment: Do you want to hurt yourself or someone else? Patient reports no desire to harm self or others. Onset of symptoms was March 31, 2024. 14:37 Acuity: EDMOND 2 mb9 14:37 Method Of Arrival: EMS: [facility] mb9 Triage Assessment: 14:38 General: Appears uncomfortable, Behavior is cooperative. Pain: Denies pain. EENT: No mb9 signs and/or symptoms were reported regarding the EENT system. Neuro: Level of Consciousness is awake, alert, obeys commands, Oriented to person, place, time, situation, Appropriate for age. Cardiovascular: Patient's skin is warm and dry. Rhythm is sinus tachycardia. Respiratory: Reports shortness of breath at rest Airway is patent Respiratory effort is labored, using tripod position, Respiratory pattern is tachypnea Breath sounds are diminished in right posterior upper lobe and right posterior middle lobe Onset: The symptoms/episode began/occurred suddenly, the patient has moderate shortness of breath. GI: No signs and/or symptoms were reported involving the gastrointestinal system. : No signs and/or symptoms were reported regarding the genitourinary system. Derm: Skin is pink, warm \\T\\ dry. Musculoskeletal: Range of motion: intact in all extremities. Historical: - Allergies: 14:36 GABAPENTIN; mb9 - PMHx: 14:36 Chronic obstructive lung disease; Lung Cancer; neuropathy; PE (Partial lobectomy -); mb9 - PSHx: 14:36 Appendectomy; Partial lobectomy - right upper lobe; mb9 - Immunization history:: Adult Immunizations up to date. - Infectious Disease History:: Denies. - Social history:: Smoking status: Patient/guardian denies using tobacco. - Family history:: not pertinent. Screenin:40 [facility] ED Fall Risk Assessment (Adult) History of falling in the last 3 months, mb9 including since admission No falls in past 3 months (0 pts) Confusion or Disorientation No (0 pts) Intoxicated or Sedated No (0 pts) Impaired Gait No (0 pts) Mobility Assist Device Used No (0 pt) Altered Elimination No (0 pt) Score/Fall Risk Level 0 - 2 = Low Risk Oriented to surroundings, Maintained a safe environment, Educated pt \\T\\ family on fall prevention, incl call for assistance when getting out of bed. Abuse screen: Denies threats or abuse. Nutritional screening: No deficits noted. Tuberculosis screening: No symptoms or risk factors identified. Assessment: 14:40 Reassessment: see triage assessment. mb9 15:45 Reassessment: Patient appears in no apparent distress at this time. Patient states mb9 feeling better. Patient states symptoms have improved. 16:33 Reassessment: Patient appears in no apparent distress at this time. No changes from mb9 previously documented assessment. Patient and/or family updated on plan of care and expected duration. Pain level reassessed. 17:41 Reassessment: Patient appears in no apparent distress at this time. No changes from mb9 previously documented assessment. Patient and/or family updated on plan of care and expected duration. Pain level reassessed. Vital Signs: 14:37 BP 129 / 71; Pulse 125; Resp 30; Temp 98.1; Pulse Ox 92% on 5 lpm NC; Weight 56.7 kg; mb9 Height 5 ft. 5 in. ; Pain 0/10; 15:00 BP 108 / 83; Pulse 110; Resp 22; Pulse Ox 99% on R/A; mb9 17:43 BP 115 / 76; Pulse 105; Resp 18; Pulse Ox 99% on 3 lpm NC; mb9 14:37 Body Mass Index 20.80 (56.70 kg, 165.1 cm) mb9 14:37 Pain Scale: Adult mb9 ED Course: 14:27 Patient arrived in ED. ra3 14:27 Tal Carpenter MD is Attending Physician. rt 14:36 Amber Oh RN is Primary Nurse. mb9 14:36 Arm band placed on. mb9 14:38 Triage completed. mb9 15:00 Bed in low position. Call light in reach. Side rails up X 1. Provided Education on: mb9 press call light if needing anything. Client placed on continuous cardiac and pulse oximetry monitoring. NIBP monitoring applied. 15:01 No provider procedures requiring assistance completed. Patient did not have IV access mb9 during this emergency room visit. Administered Medications: No medications were administered Medication: 15:01 VIS not applicable for this client. mb9 Outcome: 17:42 Discharge ordered by . rt 18:06 Discharged to home via wheelchair, with family, mbAlexis 18:06 Condition: stable 18:06 Discharge instructions given to patient, Instructed on discharge instructions, follow up and referral plans. Demonstrated understanding of instructions, follow-up care, 18:06 Patient left the ED. mb9 Signatures: Amber Oh RN RN mb9 Tal Carpenter MD MD rt Hailee Field ra3 Corrections: (The following items were deleted from the chart) 14:40 14:37 BP 129 / 71; Pulse 125bpm; Resp 24bpm; Pulse Ox 92% 5 lpm Nasal Cannula; Temp mb9 98.1F; 56.7 kg; Height 5 ft. 5 in.; BMI: 20.8; Pain 0/10, Adult; mb9
[2024-03-31 22:58] VITALS: TEMP 98.1
[2024-03-31 22:59] VITALS: O2SAT 99
[2024-03-31 23:01] VITALS: BP 115/76
== END 2024-03-31 18:06 | disposition home or self-care (01) ==
LOC: ER 14:24
DX: J44.9 Chronic obstructive pulmonary disease, unspecified (principal); C34.11 Malignant neoplasm of upper lobe, right bronchus or lung; Z99.81 Dependence on supplemental oxygen; Z90.2 Acquired absence of lung [part of]
CPT/HCPCS: 99283

== ENCOUNTER 2024-04-20 10:26 | Emergency (ER) | payer OTHER ==
[2024-04-20] MEDS ORDERED: METHYLPREDNISOLONE 125 MG INJ ONE (10:43)
[2024-04-20] MEDS ORDERED: LEVALBUTEROL 1.25 MG/3 ML NEB ONE (10:43)
[2024-04-20] MEDS ORDERED: IPRATROPIUM BROM 0.5MG/2.5ML ONE (10:43)
[2024-04-20] MEDS ORDERED: NA CHLORIDE 0.9% 1,000 ML ONE (10:44)
[2024-04-20] MEDS ORDERED: FAMOTIDINE 20 MG/2 ML VIAL IV ONE (10:44)
[2024-04-20] MEDS ORDERED: Levofloxacin500mg IV 500 MG/100 ML BAG IV ONE (10:44)
[2024-04-20 11:15] LABS: Absolute Basophils 0.1 K/uL (0-0.5); Absolute Eosinophils 0.3 K/uL (0-0.5); Absolute Lymphocytes (CBC) 0.8 K/uL (0.7-4.9); Absolute Neutrophil 8.3 K/uL (1.8-8.0); Basophils % 0.6 % (0-1.3); Eosinophils % 3.2 % (0-4.4); Hematocrit 42.5 % (39.6-49.0); Hemoglobin 13.7 g/dL (13.6-17.9); Lymphocytes % 7.3 % (15.3-44.8); MCH 29.6 pg (27.0-35.0); MCHC 32.2 g/dL (32.0-36.0); MCV 92.1 fL (80-100); MPV 8.5 fL (7.6-11.3); Monocytes % 9.5 % (3.3-12.3); Neutrophils % 79.4 % (41.7-73.7); Platelets 289 thou/uL (152-406); RBC Red Blood Cell Count 4.62 M/uL (4.33-5.43); Red Cell Distribution Width 14.6 % (12.1-15.2)
[2024-04-20 11:19] LABS: PT Prothrombin Time 12.8 SECONDS (9.4-12.5); Protime INR 1.15
[2024-04-20 11:39] LABS: ALT/SGPT 34 U/L (16-61); AST/SGOT 25 U/L (15-37); Albumin 2.9 g/dL (3.4-5.0); Albumin/Globulin Ratio 0.6 (1.1-1.8); Alkaline Phosphatase 85 U/L (45-117); Anion Gap 5.7 mEq/L (5.0-15.0); BUN Blood Urea Nitrogen 7 mg/dL (7-18); Bicarbonate 35 mEq/L (21-32); Bilirubin Total 0.5 mg/dL (0.2-1.0); Glomerular Filtration Rate 99 ml/min (=/>90); Glucose Level 109 mg/dL (74-106); Magnesium 2.1 mg/dL (1.6-2.4); NT PRO-BNP 693 pg/mL (<125); Potassium 3.7 mEq/L (3.5-5.1); Protein, Total 7.9 g/dL (6.4-8.2); Sodium Level 135 mEq/L (136-145); Troponin High Sensitivity 11.1 pg/mL (<58.9)
[2024-04-20 11:40] LABS: Bilirubin Direct < 0.2 mg/dL (0-0.2); Bilirubin Indirect, Calculated 0.3 mg/dL (0.2-0.8)
--- NOTE | 2024-04-20 12:02 | ER ---
Nurse's Notes [facility] Name: Ye Coleman Age: 69 yrs Sex: Male : 1955 Arrival Date: 04/20/2024 Time: 10:26 Bed 2 Private MD: Diagnosis: Dyspnea-HOSPICE CARE;Hypoxemia;COPD/ Chronic obstructive pulmonary disease with (acute) exacerbation-lung cancer;Pulmonary embolism without acute cor pulmonale-THROMBUS IN RIGHT PULMONARY ARTERY, NON OCCLUSIVE, SLUGGISH FLOW DISTALLY SIMILIAR TO PRIOR STUDY;intermediate (current) use of anticoagulants Presentation: 04/20 10:31 Chief complaint: EMS states: called for concentrator not working properly at home, upon ko1 arrival patients sats were 50%, after placing on O2 he came up to 94%. Unclear if patient is on hospice or not, has been on services off and on. Hospice not answering phone. Family is poor historian/not consistent. Coronavirus screen: At this time, the client does not indicate any symptoms associated with coronavirus-19. Ebola Screen: No symptoms or risks identified at this time. Initial Sepsis Screen: Does the patient meet any 2 criteria? No. Patient's initial sepsis screen is negative. Does the patient have a suspected source of infection? No. Patient's initial sepsis screen is negative. Risk Assessment: Do you want to hurt yourself or someone else? Patient reports no desire to harm self or others. Onset of symptoms was April 20, 2024. Care prior to arrival: Oxygen administered. via nasal cannula. 10:31 Method Of Arrival: EMS: [facility] ko1 10:31 Acuity: EDMOND 3 ko1 Triage Assessment: 10:34 General: Appears distressed, Behavior is calm, cooperative, appropriate for age. Pain: ko1 Denies pain. EENT: No deficits noted. Neuro: No deficits noted. Cardiovascular: Patient's skin is warm and dry. Rhythm is sinus tachycardia. Respiratory: Reports shortness of breath at rest air hunger labored breathing Onset: The symptoms/episode began/occurred just prior to arrival, the patient has severe shortness of breath. GI: No deficits noted. : No deficits noted. Derm: No deficits noted. Musculoskeletal: No deficits noted. Historical: - Allergies: 10:34 GABAPENTIN; ko1 - PMHx: 10:34 Chronic obstructive lung disease; Lung Cancer; neuropathy; PE (Partial lobectomy -); ko1 - PSHx: 10:34 Appendectomy; Partial lobectomy - right upper lobe; ko1 - Immunization history:: Adult Immunizations unknown. - Infectious Disease History:: Denies. - Social history:: Smoking status: Patient/guardian denies using tobacco, but has a distant history of tobacco abuse. Screenin:38 [facility] ED Fall Risk Assessment (Adult) History of falling in the last 3 months, ko1 including since admission No falls in past 3 months (0 pts) Confusion or Disorientation No (0 pts) Intoxicated or Sedated No (0 pts) Impaired Gait No (0 pts) Mobility Assist Device Used No (0 pt) Altered Elimination No (0 pt) Score/Fall Risk Level 0 - 2 = Low Risk Oriented to surroundings, Maintained a safe environment, Educated pt \T\ family on fall prevention, incl call for assistance when getting out of bed, Assessed \T\ reinforced patient's understanding of fall precautions, Provided non-skid footwear, Hourly rounding (assess needs \T\ fall precautionary measures) done. Abuse screen: Denies threats or abuse. Denies injuries from another. Nutritional screening: No deficits noted. Tuberculosis screening: No symptoms or risk factors identified. Assessment: 10:38 Cardiovascular: No deficits noted. Cardiovascular: Patient's skin is warm and dry. ko1 Rhythm is sinus tachycardia. Respiratory: No deficits noted. Respiratory: Airway is patent Respiratory effort is even, labored, Breath sounds are diminished bilaterally. 15:00 Reassessment: awaiting home O2 at patients home to discharge. ko1 16:22 Reassessment: family left, attempting to get in contact with them to come and get the ko1 patient. O2 has been set up at home. Patients portable concentrator has been tested and it is working properly. Vital Signs: 10:31 BP 111 / 70; Pulse 96; Resp 22; Temp 97; Pulse Ox 95% on 5 lpm NC; ko1 11:19 BP 131 / 78; Pulse 111; Resp 24; Pulse Ox 100% on Nebulizer Mask; ko1 11:49 BP 117 / 76; Pulse 111; Resp 22; Pulse Ox 100% ; ko1 12:49 BP 126 / 94; Pulse 115; Resp 18; Pulse Ox 97% on 4 lpm NC; ko1 13:30 BP 116 / 91; Pulse 117; Resp 15; Pulse Ox 100% ; ko1 13:30 BP 106 / 93; Pulse 113; Resp 15; Pulse Ox 100% ; ko1 15:40 BP 118 / 86; Pulse 106; Resp 24; Pulse Ox 93% on 5 lpm NC; ko1 16:24 BP 120 / 92; Pulse 112; Resp 26; Pulse Ox 97% 5 lpm ; ko1 ED Course: 10:30 Patient arrived in ED. ko1 10:31 Roxi Cardozo RN is Primary Nurse. ko1 10:31 Lloyd Donohue MD is Attending Physician. feroz 10:34 Triage completed. ko1 10:34 Arm band placed on right wrist. Patient placed in an exam room, on a stretcher, on ko1 oxygen, on radiographer cardiac catheterization, on pulse oximetry, Patient notified of wait time. 10:38 Patient has correct armband on for positive identification. Allergy band placed. Bed in ko1 low position. Call light in reach. Side rails up X2. Provided Education on: labs. Client placed on continuous cardiac and pulse oximetry monitoring. NIBP monitoring applied. engine monitor on. Door closed. Noise minimized. Lights dimmed. Warm blanket given. Pillow given. 11:00 Lactate w/ 2H reflex if indic. Sent. ko1 11:00 Blood Culture Adult (2) Sent. ko1 11:00 Basic Metabolic Panel Sent. ko1 11:00 CBC with Diff Sent. ko1 11:00 LFT's Sent. ko1 11: Magnesium Sent. ko1 11: NT PRO-BNP Sent. ko1 11: PT-INR Sent. ko1 11: Troponin HS Sent. ko1 11: ABG Sent. ko1 11:02 Inserted saline lock: 20 gauge in right antecubital area, using aseptic technique. ls5 Blood collected. 11:19 No provider procedures requiring assistance completed. Initial lab(s) drawn, by ED ko1 staff, sent to lab. First set of blood cultures drawn by ED staff, Second set of blood cultures drawn by ED staff, EKG done, by ED staff, reviewed by Lloyd Donohue MD ABG drawn. by RT staff, on oxygen. Initial Neb Treatment Given as ordered Unable to instruct patient due to physical barriers, family/caregiver was instructed on procedure Patient tolerated procedure well without adverse effect. Oxygen administration via nasal cannula \T\ 5L/min. 11:27 XRAY Chest (1 view) In Process Unspecified. EDMS 11:30 SARS RAPID Sent. ls5 11:30 Flu Sent. ls5 11:58 Alley Harris is Hospitalizing Provider. feroz 12:20 CT Chest For PE Angio In Process Unspecified. EDMS 13:30 IV discontinued, intact, bleeding controlled, No redness/swelling at site. Pressure ko1 dressing applied. 15:42 Awaiting: home o2 setup. ko1 Administered Medications: 10:57 Drug: NS 0.9% IV 1000 ml IV at 125 ml/hr continuous Route: IV; Rate: 125 ml/hr; Site: ko1 left antecubital; 14:57 Follow up: Response: No adverse reaction; IV Status: Completed infusion; IV Intake: ko1 375ml 10:57 Drug: Levalbuterol Inhalation 3.75 mg Inhalation once Route: Inhalation; ko1 11:27 Follow up: Response: No adverse reaction ko1 10:57 Drug: Ipratropium Inhalation Aerosol 0.5 mg Inhalation once Route: Inhalation; ko1 11:27 Follow up: Response: No adverse reaction ko1 10:57 Drug: Famotidine IVP 20 mg IVP once; dilute with 10 mL 0.9% NaCl; give over 2 minutes ko1 Route: IVP; Site: left antecubital; 11:12 Follow up: Response: No adverse reaction ko1 11:00 Drug: MethylPrednisoLONE IVP 125 mg IVP once Route: IVP; Site: left antecubital; ko1 11:15 Follow up: Response: No adverse reaction ko1 11:01 Drug: levofloxacin IVPB 500 mg 100 ml IVPB once over 60 mins Volume: 100 ml; Route: ko1 IVPB; Infused Over: 60 mins; Site: left antecubital; 12:01 Follow up: Response: No adverse reaction; IV Status: Completed infusion; IV Intake: ko1 100ml Medication: 10:38 VIS not applicable for this client. ko1 Intake: 12:01 IV: 100ml; Total: 100ml. ko1 14:57 IV: 375ml; Total: 475ml. ko1 Outcome: 12:01 Decision to Hospitalize by Provider. feroz 14:24 Discharge ordered by . feroz 16:47 Discharged to home via wheelchair, with family, ko1 16:47 Condition: stable 16:47 Discharge instructions given to patient, family, Instructed on discharge instructions, follow up and referral plans. medication usage, Demonstrated understanding of instructions, follow-up care, medications, Prescriptions given X 16:48 Prescriptions given X 3, ko1 17:33 Patient left the ED. ko1 Signatures: Dispatcher [employer] EDLloyd Love MD MD cha Oliver, Kathy, RN RN ko1 Branden Reyes 5
--- NOTE | 2024-04-20 12:02 | EDPHYS ---
Physician Documentation [facility] Name: Ye Coleman Age: 69 yrs Sex: Male : 1955 Arrival Date: 04/20/2024 Time: 10:26 Bed 2 Private MD: ED Physician Lloyd Donohue HPI: 04/20 11:16 This 69 yrs old Male presents to ER via EMS with complaints of Shortness Of feroz Breath. 11:16 The patient has shortness of breath at rest, with light activity. Onset: The feroz symptoms/episode began/occurred this morning, today. Duration: The symptoms are continuous, and are steadily getting worse. The patient's shortness of breath has no apparent modifying factors. Associated signs and symptoms: Pertinent positives: non-productive cough, dizziness. Severity of symptoms: At their worst the symptoms were moderate in the emergency department the symptoms are unchanged. The patient has not experienced similar symptoms in the past. Historical: - Allergies: 10:34 GABAPENTIN; ko1 - PMHx: 10:34 Chronic obstructive lung disease; Lung Cancer; neuropathy; PE (Partial lobectomy -); ko1 - PSHx: 10:34 Appendectomy; Partial lobectomy - right upper lobe; ko1 - Immunization history:: Adult Immunizations unknown. - Infectious Disease History:: Denies. - Social history:: Smoking status: Patient/guardian denies using tobacco, but has a distant history of tobacco abuse. ROS: 11:47 Constitutional: Negative for fever, chills, and weight loss, Eyes: Negative for injury, feroz pain, redness, and discharge, ENT: Negative for injury, pain, and discharge, Neck: Negative for injury, pain, and swelling, Abdomen/GI: Negative for abdominal pain, nausea, vomiting, diarrhea, and constipation, Back: Negative for injury and pain, : Negative for injury, bleeding, discharge, and swelling, MS/Extremity: Negative for injury and deformity, Skin: Negative for injury, rash, and discoloration, Neuro: Negative for headache, weakness, numbness, tingling, and seizure, Psych: Negative for depression, anxiety, suicide ideation, homicidal ideation, and hallucinations, Allergy/Immunology: Negative for hives, rash, and allergies, Endocrine: Negative for neck swelling, polydipsia, polyuria, polyphagia, and marked weight changes, Hematologic/Lymphatic: Negative for swollen nodes, abnormal bleeding, and unusual bruising, 11:47 Cardiovascular: Positive for palpitations, 11:47 Respiratory: Positive for cough, shortness of breath, wheezing, inspiratory, expiratory, 11:47 MS/extremity: Negative for acute changes, Exam: 11:47 Constitutional: This is a well developed, well nourished patient who is awake, alert, feroz and in no acute distress. Head/Face: Normocephalic, atraumatic. Eyes: Pupils equal round and reactive to light, extra-ocular motions intact. Lids and lashes normal. Conjunctiva and sclera are non-icteric and not injected. Cornea within normal limits. Periorbital areas with no swelling, redness, or edema. ENT: Nares patent. No nasal discharge, no septal abnormalities noted. Tympanic membranes are normal and external auditory canals are clear. Oropharynx with no redness, swelling, or masses, exudates, or evidence of obstruction, uvula midline. Mucous membranes moist. Neck: Trachea midline, no thyromegaly or masses palpated, and no cervical lymphadenopathy. Supple, full range of motion without nuchal rigidity, or vertebral point tenderness. No Meningismus. Chest/axilla: Normal chest wall appearance and motion. Nontender with no deformity. No lesions are appreciated. Abdomen/GI: Soft, non-tender, with normal bowel sounds. No distension or tympany. No guarding or rebound. No evidence of tenderness throughout. Back: No spinal tenderness. No costovertebral tenderness. Full range of motion. Male : Normal genitalia with no discharge or lesions. Skin: Warm, dry with normal turgor. Normal color with no rashes, no lesions, and no evidence of cellulitis. MS/ Extremity: Pulses equal, no cyanosis. Neurovascular intact. Full, normal range of motion. Neuro: Awake and alert, GCS 15, oriented to person, place, time, and situation. Cranial nerves II-XII grossly intact. Motor strength 5/5 in all extremities. Sensory grossly intact. Cerebellar exam normal. Normal gait. Psych: Awake, alert, with orientation to person, place and time. Behavior, mood, and affect are within normal limits. 11:47 Cardiovascular: Rate: tachycardic, actual rate is 111 bpm, Rhythm: regular, Pulses: Pulses are 4+ in bilateral radial, brachial, femoral, popliteal, posterior tibial and and dorsalis pedis arteries.. Heart sounds: normal, normal S1and S2, no S3 or S4, no murmur, no rub, no gallop, Edema: is not appreciated, JVD: is not appreciated, 11:47 ECG was reviewed by the Attending Physician. Vital Signs: 10:31 BP 111 / 70; Pulse 96; Resp 22; Temp 97; Pulse Ox 95% on 5 lpm NC; ko1 11:19 BP 131 / 78; Pulse 111; Resp 24; Pulse Ox 100% on Nebulizer Mask; ko1 11:49 BP 117 / 76; Pulse 111; Resp 22; Pulse Ox 100% ; ko1 12:49 BP 126 / 94; Pulse 115; Resp 18; Pulse Ox 97% on 4 lpm NC; ko1 13:30 BP 116 / 91; Pulse 117; Resp 15; Pulse Ox 100% ; ko1 13:30 BP 106 / 93; Pulse 113; Resp 15; Pulse Ox 100% ; ko1 15:40 BP 118 / 86; Pulse 106; Resp 24; Pulse Ox 93% on 5 lpm NC; ko1 16:24 BP 120 / 92; Pulse 112; Resp 26; Pulse Ox 97% 5 lpm ; ko1 MDM: 10:31 Medical Screening Exam initiated feroz 11:51 Differential diagnosis: Anemia Anxiety Reaction asthma, Bronchitis CHF exacerbation, feroz Chronic Obstructive Pulmonary Disease obstructed airway, tracheal injury, bronchitis, flu, URI, Myocardial Infarction pneumonia, reactive airway disease, Sepsis. Antibiotic administration: Levaquin given. Differential Diagnosis: Obstructed Airway Bronchitis Influenza Upper Respiratory Infection Pharyngitis Otitis Media Asthma Exacerbation Viral Syndrome Pneumonia. Immunization status: Pneumococcal vaccine: within last 5 years. Influenza vaccine: within last 5 years. Data reviewed: vital signs, nurses notes, lab test result(s), EKG, radiologic studies. Consideration of Admission/Observation Patient was admitted/placed on observation. Escalation of care including admission/observation considered. I considered the following discharge prescriptions or medication management in the emergency department Medications were administered in the Emergency Department. See MAR. Independent interpretation of the following test(s) in the Emergency Department EKG: See my EKG interpretation above. Test considered but Not performed: Ultrasound NO 2 D ECHO. Care significantly affected by the following chronic conditions: Chronic Obstructive Pulmonary Disease, Cancer, NEUROPATHY , PE. 04/20 10:36 Order name: Basic Metabolic Panel; Complete Time: 11:45 [facility] 04/20 10:36 Order name: CBC with Diff; Complete Time: 11:45 [facility] 04/20 10:36 Order name: LFT's; Complete Time: 11:45 [facility] 04/20 10:36 Order name: Magnesium; Complete Time: 11:45 [facility] 04/20 10:36 Order name: NT PRO-BNP; Complete Time: 11:45 [facility] 04/20 10:36 Order name: PT-INR; Complete Time: 11:45 [facility] 04/20 10:36 Order name: Troponin HS; Complete Time: 11:45 [facility] 04/20 10:36 Order name: Blood Culture Adult (2) 04/20 10:36 Order name: Lactate w/ 2H reflex if indic.; Complete Time: 11:45 [facility] 04/20 10:36 Order name: ABG; Complete Time: 12:40 [facility] 04/20 11:17 Order name: Flu; Complete Time: 13:26 [facility] 04/20 11:17 Order name: SARS RAPID; Complete Time: 13:26 [facility] 04/20 10:36 Order name: XRAY Chest (1 view); Complete Time: 12:26 [facility] 04/20 11:45 Order name: CT Chest For PE Angio [facility] 04/20 10:36 Order name: Cardiac monitoring; Complete Time: 10:40 [facility] 04/20 10:36 Order name: EKG - Nurse/Tech; Complete Time: 11:02 [facility] 04/20 10:36 Order name: IV Saline Lock; Complete Time: 11:00 [facility] 04/20 10:36 Order name: Labs collected and sent; Complete Time: 11:00 [facility] 04/20 10:36 Order name: O2 Per Protocol; Complete Time: 10:40 [facility] 04/20 10:36 Order name: O2 Sat Monitoring; Complete Time: 10:40 [facility] EC:47 Rate is 109 beats/min. Rhythm is regular. QRS Bard is Normal. [place] interval is normal. [facility] QRS interval is normal. QT interval is normal. No Q waves. T waves are Normal. No ST changes noted. Clinical impression: Sinus tachycardia. Interpreted by me. Reviewed by me. Administered Medications: 10:57 Drug: NS 0.9% IV 1000 ml IV at 125 ml/hr continuous Route: IV; Rate: 125 ml/hr; Site: ko1 left antecubital; 14:57 Follow up: Response: No adverse reaction; IV Status: Completed infusion; IV Intake: ko1 375ml 10:57 Drug: Levalbuterol Inhalation 3.75 mg Inhalation once Route: Inhalation; ko1 11:27 Follow up: Response: No adverse reaction ko1 10:57 Drug: Ipratropium Inhalation Aerosol 0.5 mg Inhalation once Route: Inhalation; ko1 11:27 Follow up: Response: No adverse reaction ko1 10:57 Drug: Famotidine IVP 20 mg IVP once; dilute with 10 mL 0.9% NaCl; give over 2 minutes ko1 Route: IVP; Site: left antecubital; 11:12 Follow up: Response: No adverse reaction ko1 11:00 Drug: MethylPrednisoLONE IVP 125 mg IVP once Route: IVP; Site: left antecubital; ko1 11:15 Follow up: Response: No adverse reaction ko1 11:01 Drug: levofloxacin IVPB 500 mg 100 ml IVPB once over 60 mins Volume: 100 ml; Route: ko1 IVPB; Infused Over: 60 mins; Site: left antecubital; 12:01 Follow up: Response: No adverse reaction; IV Status: Completed infusion; IV Intake: ko1 100ml Disposition Summary: 04/20/24 14:24 Discharge Ordered Notes: Location: Home(04/20/24 14:24) feroz Problem: new(04/20/24 14:24) feroz Symptoms: have improved(04/20/24 14:24) feroz Condition: Fair(04/20/24 14:24) feroz Diagnosis - Dyspnea - HOSPICE CARE feroz - Hypoxemia(04/20/24 14:24) feroz - COPD/ Chronic obstructive pulmonary disease with (acute) exacerbation - lung feroz cancer(04/20/24 14:24) - Pulmonary embolism without acute cor pulmonale - THROMBUS IN RIGHT PULMONARY feroz ARTERY, NON OCCLUSIVE, SLUGGISH FLOW DISTALLY SIMILIAR TO PRIOR STUDY(04/20/24 14:24) - correction (current) use of anticoagulants(04/20/24 14:27) feroz Followup: feroz - With: Private Physician - When: 2 - 3 days - Reason: Recheck today's complaints, Continuance of care, Re-evaluation by your physician Discharge Instructions: - Discharge Summary Sheet feroz - Chronic Obstructive Pulmonary Disease feroz - Pulmonary Embolism feroz - Chronic Obstructive Pulmonary Disease Exacerbation feroz - Hospice feroz - Hypoxia feroz Forms: - Medication Reconciliation Form feroz - Antibiotic Education feroz - Prescription Opioid Use feroz - Patient Portal Instructions feroz - Leadership Thank You Letter [facility] Prescriptions: - Augmentin 875-125 mg Oral tablet - take 1 tablet ORAL route every 12 hours for 7 days; 14 tablet; Refills: 0, [facility] Product Selection Permitted - Xopenex 1.25 mg/3 mL Inhalation Solution for Nebulization - inhale 1 unit NEBULIZATION route every 4-6 hours As needed; 45 unit; Refills: feroz 0, Product Selection Permitted - Prednisone 20 mg Oral Tablet - take 2 tablets ORAL route once daily for 5 days; 10 tablet; Refills: 0, Product feroz Selection Permitted Signatures: Dispatcher [employer] EDMS Lloyd Donohue MD MD cha Waters, Shelly, FNP-Nabila VENTURA-Roxi Haley RN RN ko1 Corrections: (The following items were deleted from the chart) 10:37 10:36 BASIC METABOLIC PANEL+C.LAB.BRZ ordered. EDMS EDMS 10:37 10:36 CBC+H.LAB.BRZ ordered. EDMS EDMS 10:37 10:36 HEPATIC FUNCTION+C.LAB.BRZ ordered. EDMS EDMS 10:37 10:36 MAGNESIUM+C.LAB.BRZ ordered. EDMS EDMS 10:37 10:36 PROBNP+C.LAB.BRZ ordered. EDMS EDMS 10:37 10:36 PROTIME (+INR)+COAG.LAB.BRZ ordered. EDMS EDMS 10:37 10:36 Troponin High Sensitivity+C.LAB.BRZ ordered. EDMS EDMS 10:37 10:36 BLOOD CULTURE*+BA.LAB.BRZ ordered. EDMS EDMS 10:37 10:36 LACTATE+C.LAB.BRZ ordered. EDMS EDMS 10:37 10:37 Chest Single View+RAD.RAD.BRZ ordered. EDMS EDMS 10:37 10:37 Arterial Blood Gas+RC.LAB.BRZ ordered. EDMS EDMS 12:24 11:37 Thorax Wo Con+CT.RAD.BRZ ordered. EDND EDMS 14:21 12:01 Inpatient Admission count includes the [facility] 14:21 12:01 Albert Harris-Ran count includes the [facility] 14:21 12:01 Telemetry/MedSurg (Inpatient) feroz feroz 14:21 12:01 Fair feroz feroz 14:21 12:01 an acute exacerbation feroz feroz 14:21 12:01 have improved feroz feroz 14:21 12:01 Standard feroz feroz 14:21 12:01 feroz feroz 14:21 12:01 COPD/ Chronic obstructive pulmonary disease with (acute) exacerbation - LUNG feroz CANCER feroz 14:21 12:01 Hypoxemia feroz feroz 14:21 13:39 Pulmonary embolism without acute cor pulmonale - RIGHT PULMONARY ARTERY, feroz NONOCCULSIVE, SAME SLUGGISH FLOW PRIOR STUDY feroz 14:21 13:41 [employer] (current) use of anticoagulants - ELIQUIS feroz feroz
--- NOTE | 2024-04-20 12:25 | RAD REPORT ---
EXAMINATION: ONE VIEW CHEST XR CLINICAL INDICATION: Male, 69 years old.,Cough;COPD TECHNIQUE: Frontal chest projection is submitted. Examination is limited by patient positioning and t echnique. COMPARISON: 03/25/2024 FINDINGS: Near complete opacification of the right lung with postsurgical changes in the right upper hemithorax . Patchy left Central opacity with adjacent streaky and other scattered peripheral airspace opacities, stable. Suspected pleural effusions larger on the right. No pneumothorax. The cardiomedia stinal contours are unchanged. IMPRESSION: Stable bilateral airspace opacities as above.
[2024-04-20 12:30] LABS: Blood O2 Saturation 98.5 % (92-98.5)
[2024-04-20 12:31] LABS: Arterial Blood Carboxyhemoglob 0.8 % (0-1.5); Blood Gas Oxyhemoglobin 95.8 % (94-97); Blood Gas THB 13.3 g/dl (12-18)
[2024-04-20 12:41] LABS: SARS-CoV-2 Antigen CONTROL BLUE LINE VIS/BG OK; SARS-CoV-2 Antigen Rapid Res Negative (Negative)
--- NOTE | 2024-04-20 13:06 | P.HP ---
Certification for Inpatient Patient admitted to: Observation With expected LOS: <2 Midnights Patient will require the following post-hospital care: None Practitioner: I am a practitioner with admitting privileges, knowledge of patient current condition, hospital course, and medical plan of care. Services: Services provided to patient in accordance with Admission requirements found in Title 42 Section 412.3 of the Code of Federal Regulations Patient History Date of Service: 04/20/24 Reason for admission: hypoxia and COPD exacerbation History of Present Illness: Mr. Coleman is a 69-year-old gentleman with a past medical history of neuropathy, metastatic lung cancer, and COPD. He had a right lower lobectomy in 2019. He has an O2 concentrator at home that apparently was having some trouble and he presented to the emergency department today with a SpO2 of 70%. He was placed on O2 at 2 L via nasal cannula and given neb treatments, 1 L normal saline, Pepcid 20 mg, Solu-Medrol 125 mg, and Levaquin 500 mg IV. Current vital signs are 126/94, 28, 114, SpO2 99 to 100% on 2 L. He is a very poor historian and there is some question whether he has hospice services. We will speak with the ER case packer and sealer to clarify. Labs are stable chest x-ray stable from prior chest x-ray per radiology ("stable bilateral airspace opacities."), he is afebrile, lactate 1.6. Allergies No Known Allergies Allergy (Verified 02/20/22 13:27) Home medications list reviewed: Yes (pt only knows that he takes three pills) Home Medications: Aspirin [Aspirin EC 81 MG] 81 mg PO DAILY 30 Days #30 tablet. 06/15/21 Albuterol Neb [Proventil 0.083% Neb Soln] 2.5 mg IH Q6HP PRN #60 amp 05/23/23 Ipratropium Neb [Atrovent*] 0.5 mg NEB Q6HP PRN #60 amp 05/23/23 Nebulizer 1 each MC DAILY #1 ea 05/23/23 Nebulizer Accessories [Aeroneb Go] 1 each MC DAILY #1 ea 05/23/23 Apixaban [Eliquis] 5 mg PO BID #74 tab 11/21/23 clonazePAM [Clonazepam] 0.5 mg PO BID 7 Days #15 tab 11/21/23 LORazepam [Ativan*] 0.5 mg PO BID PRN 02/19/24 Melatonin 5 mg PO DAILY 02/19/24 Mirtazapine [Remeron*] 15 mg PO BEDTIME 02/19/24 Trazodone [Desyrel*] 50 mg PO DAILY 02/19/24 Mirtazapine [Remeron*] 15 mg PO BEDTIME 30 Days #30 tab 03/26/24 Prednisone [Willam] 10 mg PO BID 17 Days #45 tab 03/26/24 - Past Medical/Surgical History Has patient received pneumonia vaccine in the past: Yes Diabetic: No -: Metastatic lung cancer -: COPD -: Pulmonary embolism -: Neuropathy -: Right lower lobe lobectomy -: appendectomy Psychosocial/ Personal History: Lives at home. Has O2, Nebulizer - Family History Father -: Heart disease, Stroke Mother Notes: old age - Social History Smoking Status: Former smoker Alcohol use: No CD- Drugs: No Caffeine use: No Place of Residence: Home Review of Systems 10-point ROS is otherwise unremarkable General: Weakness Eyes: Unremarkable ENT: Unremarkable Respiratory: Cough, Shortness of Breath, SOB with Excertion Cardiovascular: Palpitations Gastrointestinal: Unremarkable Genitourinary: Unremarkable Musculoskeletal: Unremarkable Integumentary: Unremarkable Neurological: Unremarkable Lymphatics: Unremarkable Physical Examination - Vital Signs Blood Pressure: 126/94 Pulse: 114 Respirations: 28 Pulse Ox (%): 94 (2L) - Physical Exam General: Alert, In no apparent distress HEENT: Atraumatic, Normocephalic Neck: Supple Respiratory: Diminished Cardiovascular: Normal S1 S2, Abnormal S3 (tachy) Capillary refill: <2 Seconds Gastrointestinal: Normal bowel sounds Musculoskeletal: No clubbing Integumentary: No rashes Neurological: Normal speech, Normal tone, Normal affect Lymphatics: No axilla or inguinal lymphadenopathy External genitalia: Deferred Rectal: Deferred - Studies Laboratory Data (last 24 hrs) 04/20/24 04/20/24 04/20/24 10:55 10:55 10:55 WBC 10.50 Hgb 13.7 Hct 42.5 Plt Count 289 PT 12.8 H INR 1.15 Sodium 135 L Potassium 3.7 BUN 7 Creatinine 0.68 L Glucose 109 H Magnesium 2.1 Total Bilirubin 0.5 AST 25 ALT 34 Alkaline Phosphatase 85 Microbiology Data (last 24 hrs): 11/10/24 11:27 Nasopharnyx Influenza Type A Antigen Screen - Final 04/20/24 11:27 Nasopharnyx Influenza Type B Antigen Screen - Final Assessment and Plan - Plan Acute hypoxic respiratory failure secondary to COPD exacerbation/lung cancer O2 to maintain sats above 90 Consult to case management to inquire regarding whether patient has hospice services Neb treatments q6h Pain management Monitor and trend labs including CBC, CMP, and lactate as needed GI and DVT prophylaxis - Advance Directives Does patient have a Living Will: No Does patient have a Durable POA for Healthcare: No
--- NOTE | 2024-04-20 13:42 | RAD REPORT ---
EXAM: CT Chest For Pe Angio TECHNIQUE: CT angiogram of the chest was performed following intravenous contrast administration, inc luding sagittal and coronal as well as maximum intensity projection reformats. One or more of the following dose reduction techniques were used: Automated exposure control, adjustment of the mA and k V according to patient size, and iterative reconstruction. Unless otherwise specified, incidental findings do not require dedicated imaging follow-up. INDICATION: [facility] COPD;Dyspnea Bed Name: 2 N COMPARISON: 03/25/2024. FINDINGS: LINES/TUBES: None. PULMONARY ARTERIES: Lobulated nonobstructing thrombus measuring 1.2 cm in thickness along the proxima l right pulmonary artery. Sluggish opacification within the artery more distally, as well as nonopacification of the lower lobe branches again seen. Main pulmonary artery is normal in caliber. N o evidence of acute emboli on the left. . LUNGS AND AIRWAYS: Stable medial left lower lobe mass or opacity measuring 4.8 cm in greatest AP dime nsion. Stable central left lower lobe mass measuring 2.8 cm. Stable patchy bilateral airspace opacities throughout the remainder of both lungs, more confluent on the right, with areas of varicose bronchiectasis. Nodular left lingular 1.7 cm opacity is stable. Likely loculated right basal infrahilar effusion is also stable. PLEURA: Layering small right pleural effusion, stable. No pneumothorax. HEART AND MEDIASTINUM: The visualized thyroid gland is normal. Stable mildly prominent mediastinal an d left hilar lymph nodes. Heart is unremarkable. No pericardial effusion. SOFT TISSUES AND BONES: No acute osseous abnormality. No significant soft tissue finding. UPPER ABDOMEN: Unremarkable. IMPRESSION: Nonobstructive lobulated thrombus within the right main pulmonary artery, new since the prior exam. Stable findings of sluggish opacification within the more distal right pulmonary artery, with nonopac ification of the lower segmental branches. Other stable bilateral pulmonary opacities and effusions as above, as well as stable solid appearing masses, again concerning for malignancy. Other stable findings as above. THIS REPORT CONTAINS FINDINGS THAT MAY BE CRITICAL TO PATIENT CARE. The findings were verbally commun icated via telephone to Lloyd Donohue MD on 04/20/2024 1:36 PM.
[2024-04-20 17:50] VITALS: TEMP 97
[2024-04-20 17:57] VITALS: BP 120/92; O2SAT 97
--- NOTE | 2024-04-21 12:05 | EKG ---
Test Date: 2024-04-20 Test Time: 11:07:11 Lumber Mover: ZI MEASUREMENT RESULTS: Intervals: Rate: 109 MN: 148 QRSD: 70 QT: 344 QTc: 463 Meredith: P: 10 MN: 148 QRS: 127 T: 6 INTERPRETIVE STATEMENTS: Sinus tachycardia Right axis deviation Nonspecific ST abnormality Abnormal ECG Compared to ECG 03/25/2024 14:08:29 Right-axis deviation now present ST (T wave) deviation now present Atrial abnormality no longer present Left posterior fascicular block no longer present Electronically Signed On 04-21-24 12:05:10 [employer]URE STEAMER T[employer]ER by Dwight Vazquez
== END 2024-04-20 17:33 | disposition home or self-care (01) ==
LOC: ER 10:26
DX: J44.1 Chronic obstructive pulmonary disease with (acute) exacerbation (principal); J96.01 Acute respiratory failure with hypoxia; C34.11 Malignant neoplasm of upper lobe, right bronchus or lung; I26.99 Other pulmonary embolism without acute cor pulmonale; Z79.01 Long term (current) use of anticoagulants; Z11.52 Encounter for screening for COVID-19
CPT/HCPCS: 93005; 87040 ×2; 85025; 80048; 36415; 83735; 85610; 80076; 83605; 84484; 83880; 87804 ×2; 71275; 71045; 82805; 87811; 36600; Q9967; J7614; J7644; J2919; J7030; 94640; 96361; 96365; 96375; 99285

== ENCOUNTER 2024-05-13 10:16 | Emergency (ER) | payer OTHER ==
--- NOTE | 2024-05-13 11:24 | RAD REPORT ---
EXAM: Chest Single View HISTORY: DYSPNEA COMPARISON: CT 04/20/2024, chest radiograph 04/20/2024 FINDINGS: LUNGS/PLEURA: Widespread bilateral airspace disease with areas of consolidation within the right uppe r lobe in particular and peripherally in the left upper lobe. Overall, the aeration of the left lung appears to marginally worsened. The right lung aeration is overall similar. Known lung masses. MEDIASTINUM: Not well assessed CARDIAC: Partially obscured and not well evaluated. UPPER ABDOMEN: No significant abnormality. BONES: No acute fracture. LINES/TUBES/OTHER: N/A IMPRESSION: Marginally worsened aeration in the left lung could be due to enlarging pulmonary lesions versus a manuel perimposed infectious or inflammatory process. Poorly aerated right lung is overall similar to 04/20/2024.
[2024-05-13 11:35] LABS: Absolute Basophils 0.1 K/uL (0-0.5); Absolute Eosinophils 0.1 K/uL (0-0.5); Absolute Monocytes 1.3 K/uL (0.1-1.3); Absolute Neutrophil 6.1 K/uL (1.8-8.0); Basophils % 0.7 % (0-1.3); Eosinophils % 1.3 % (0-4.4); Hematocrit 37.8 % (39.6-49.0); Hemoglobin 12.1 g/dL (13.6-17.9); Lymphocytes % 12.1 % (15.3-44.8); MCH 29.7 pg (27.0-35.0); MCV 92.8 fL (80-100); MPV 8.1 fL (7.6-11.3); Monocytes % 14.7 % (3.3-12.3); Neutrophils % 71.2 % (41.7-73.7); Platelets 439 thou/uL (152-406); RBC Red Blood Cell Count 4.07 M/uL (4.33-5.43)
[2024-05-13 11:47] LABS: AST/SGOT 17 U/L (15-37); Albumin 2.5 g/dL (3.4-5.0); Albumin/Globulin Ratio 0.5 (1.1-1.8); Alkaline Phosphatase 85 U/L (45-117); Anion Gap 6.9 mEq/L (5.0-15.0); BUN Blood Urea Nitrogen 11 mg/dL (7-18); Bicarbonate 38 mEq/L (21-32); Bilirubin Total 0.2 mg/dL (0.2-1.0); Globulin 4.9 g/dL (2.3-3.5); Glomerular Filtration Rate 99 ml/min (=/>90); Glucose Level 113 mg/dL (74-106); Potassium 3.9 mEq/L (3.5-5.1); Protein, Total 7.4 g/dL (6.4-8.2); Sodium Level 139 mEq/L (136-145)
[2024-05-13 11:49] LABS: ALT/SGPT < 14 U/L (16-61)
[2024-05-13] MEDS ORDERED: METHYLPREDNISOLONE 125 MG INJ ONE (16:05)
--- NOTE | 2024-05-13 17:28 | ER ---
Nurse's Notes [facility] Name: Ye Coleman Age: 69 yrs Sex: Male : 1955 Arrival Date: 05/13/2024 Time: 10:16 Bed 3 Private MD: Diagnosis: COPD/ Chronic obstructive pulmonary disease, unspecified;Chronic respiratory failure with hypoxia Presentation: 05/13 10:22 Chief complaint: Patient states: increased SOB, pt wearing O2 via NC at 5 L, currently aa5 71%. Reports hx of Right Lobectomy. 10:22 Coronavirus screen: shortness of breath. Ebola Screen: Patient denies travel to an aa5 Ebola-affected area in the 21 days before illness onset. Initial Sepsis Screen: Does the patient meet any 2 criteria? RR > 20 per min. HR > 90 bpm. Yes Does the patient have a suspected source of infection? No. Patient's initial sepsis screen is negative. Risk Assessment: Do you want to hurt yourself or someone else? Patient reports no desire to harm self or others. Onset of symptoms was May 13, 2024. 10:22 Acuity: EDMOND 1 aa5 10:22 Method Of Arrival: Wheelchair aa5 Triage Assessment: 10:30 General: Appears distressed, Behavior is calm, cooperative, appropriate for age. Pain: bp Denies pain. EENT: No deficits noted. Neuro: No deficits noted. Cardiovascular: Rhythm is sinus tachycardia. Respiratory: Reports shortness of breath Onset: The symptoms/episode began/occurred at an unknown time. the patient has moderate shortness of breath. GI: No signs and/or symptoms were reported involving the gastrointestinal system. : No signs and/or symptoms were reported regarding the genitourinary system. Derm: No signs and/or symptoms reported regarding the dermatologic system. Musculoskeletal: No deficits noted. Historical: - Allergies: 10:36 GABAPENTIN; aa5 - PMHx: 10:36 Chronic obstructive lung disease; Lung Cancer; neuropathy; PE (Partial lobectomy -); aa5 - PSHx: 10:36 Appendectomy; Partial lobectomy - right upper lobe; aa5 - Immunization history:: Adult Immunizations unknown. - Infectious Disease History:: Denies. - Social history:: Smoking status: Patient/guardian denies using tobacco. Screenin:02 [facility] ED Fall Risk Assessment (Adult) History of falling in the last 3 months, bp including since admission No falls in past 3 months (0 pts) Confusion or Disorientation No (0 pts) Intoxicated or Sedated No (0 pts) Impaired Gait No (0 pts) Mobility Assist Device Used No (0 pt) Altered Elimination No (0 pt) Score/Fall Risk Level 0 - 2 = Low Risk. Abuse screen: Denies threats or abuse. Denies injuries from another. Nutritional screening: No deficits noted. Tuberculosis screening: No symptoms or risk factors identified. Assessment: 10:26 Reassessment: Pt was placed in bed and O2 sat increased to 83% via home O2. . aa5 10:30 Reassessment: Pt taken off home O2 and now receiving O2 via NC at 5 L, O2 now increased aa5 to 94% and SOB has improved. . 12:45 Reassessment: Patient appears in no apparent distress at this time. Patient is alert, bp oriented x 3, equal unlabored respirations, skin warm/dry/pink. Cardiovascular: Rhythm is sinus rhythm. Respiratory: Airway is patent Respiratory effort is unlabored, Breath sounds are diminished. 15:35 Reassessment: Patient and/or family updated on plan of care and expected duration. Pain ap3 level reassessed. General: Appears in no apparent distress. comfortable. Cardiovascular: Patient's skin is warm and dry. Respiratory: Airway is patent Respiratory effort is even, unlabored. 16:56 Reassessment: DISPO ON HOLD FOR HOSPICE O2 DELIVERY TO HOUSE. bp 18:16 Reassessment: O2 DELIVERY CONFIRMED, PT DC HOME WITH FAMILY. bp Vital Signs: 10:22 BP 127 / 74; Pulse 109; Resp 48 S; Temp 97.7(O); Pulse Ox 71% on 5 lpm NC; aa5 10:26 Pulse Ox 83% on 5 lpm NC; aa5 10:30 Resp 32 S; Pulse Ox 94% on 5 lpm NC; aa5 11:01 Pulse 106; Resp 24; Pulse Ox 100% ; bp 11:42 BP 117 / 78; Pulse 99; Pulse Ox 100% ; ap3 12:45 BP 118 / 79; Pulse 94; Resp 18; Pulse Ox 100% ; bp 13:20 BP 118 / 79; Pulse 97; Resp 20; Pulse Ox 100% ; ap3 14:58 BP 116 / 73; Pulse 97; Resp 17; Pulse Ox 98% ; ap3 16:56 BP 129 / 78; Pulse 78; Resp 18; Pulse Ox 99% ; bp ED Course: 10:17 Patient arrived in ED. im 10:22 Arm band placed on. aa5 10:23 Luisito Dempsey, RN is Primary Nurse. bp 10:23 Justin Almaguer MD is Attending Physician. bo1 10:36 Triage completed. aa5 10:36 EKG done, by ED staff, reviewed by Justin Almaguer MD. ap3 10:45 Initial lab(s) drawn, by me, sent to lab. First set of blood cultures drawn by me, bp Second set of blood cultures drawn by me. Inserted saline lock: 22 gauge in right forearm, using aseptic technique. Blood collected. Flushed with 10 mL NS. 10:52 Chest Single View XRAY In Process Unspecified. EDMS 11:02 Patient has correct armband on for positive identification. bp 13:46 contacted Maria De Jesus Portillo with [facility]. bd 18:06 No provider procedures requiring assistance completed. IV discontinued, intact, ap3 bleeding controlled, No redness/swelling at site. Pressure dressing applied. 18:16 Provided Education on: N/A. bp Administered Medications: 16:00 Drug: MethylPrednisoLONE IVP 125 mg IVP once Route: IVP; Site: right forearm; bp 16:32 Follow up: Response: No adverse reaction bp Medication: 18:16 VIS not applicable for this client. bp Outcome: 17:27 Discharge ordered by . bo1 18:16 Discharged to home ambulatory, with family, bp 18:16 Condition: stable 18:16 Discharge instructions given to patient, family, Instructed on discharge instructions, follow up and referral plans. medication usage, Demonstrated understanding of instructions, follow-up care, medications, Prescriptions given X 2, 18:18 Patient left the ED. bp Signatures: Dispatcher [employer] EDMS Janet Hilario Audri, RN RN aa5 Luisito Dempsey, RN RN bp Roxana Merlos RN RN ap3 Saadia Hannon im Justin Almaguer MD MD bo1 Corrections: (The following items were deleted from the chart) 10:40 10:30 Pulse Ox 94% 5 lpm Nasal Cannula; aa5 aa5 11:16 11:01 Pulse 106bpm; Resp 24bpm; Pulse Ox 100%; bp bp 13:21 11:42 BP 117 / 78; Pulse 99bpm; Pulse Ox 100% RA; ap3 ap3
--- NOTE | 2024-05-13 17:28 | EDPHYS ---
Physician Documentation [facility] Name: Ye Coleman Age: 69 yrs Sex: Male : 1955 Arrival Date: 05/13/2024 Time: 10:16 Bed 3 Private MD: ED Physician Justin Almaguer HPI: 05/13 15:40 This 69 yrs old Male presents to ER via Wheelchair with complaints of bo1 Shortness Of Breath. 16:07 The patient has shortness of breath with light activity. Onset: The symptoms/episode bo1 began/occurred gradually, today. Duration: The symptoms are continuous. The patient's shortness of breath has no apparent modifying factors. Associated signs and symptoms: Pertinent negatives: fever. Severity of symptoms: At their worst the symptoms were moderate. Pt is on home oxygen (concentrator) and pt has refused nebulized treatments as "they make him cough.". No new changes. Pt is on hospice. Historical: - Allergies: 10:36 GABAPENTIN; aa5 - PMHx: 10:36 Chronic obstructive lung disease; Lung Cancer; neuropathy; PE (Partial lobectomy -); aa5 - PSHx: 10:36 Appendectomy; Partial lobectomy - right upper lobe; aa5 - Immunization history:: Adult Immunizations unknown. - Infectious Disease History:: Denies. - Social history:: Smoking status: Patient/guardian denies using tobacco. ROS: 15:40 Constitutional: Negative for fever, chills, and weight loss bo1 15:40 Respiratory: Positive for shortness of breath, On home oxygen via concentrator set for 5 litres NC, Exam: 15:37 ECG was reviewed by the Attending Physician. bo1 16:14 Constitutional: This is a well developed patient who is awake, alert, and in acute bo1 distress. 16:14 Head/face: Exam is negative for acute changes, 16:14 Cardiovascular: Exam negative for acute changes, Rate: normal, tachycardic, Rhythm: regular, Pulses: no pulse deficits are appreciated, 16:14 Respiratory: mild respiratory distress is noted, Accessory muscles being used, concentrator saturation at high 70's, Respirations: accessory muscle usage, that is mild, Breath sounds: decreased breath sounds, that are moderate, are scattered, 16:14 Abdomen/GI: Inspection: distension, is not seen, 16:14 Musculoskeletal/extremity: DVT Exam: no pain, no swelling, no tenderness, 16:14 Skin: Appearance: Color: dusky, Temperature: cool, Moisture: dry, diaphoresis is not appreciated, swelling, is not appreciated, 16:14 Neuro: Exam negative for acute changes, Vital Signs: 10:22 BP 127 / 74; Pulse 109; Resp 48 S; Temp 97.7(O); Pulse Ox 71% on 5 lpm NC; aa5 10:26 Pulse Ox 83% on 5 lpm NC; aa5 10:30 Resp 32 S; Pulse Ox 94% on 5 lpm NC; aa5 11:01 Pulse 106; Resp 24; Pulse Ox 100% ; bp 11:42 BP 117 / 78; Pulse 99; Pulse Ox 100% ; ap3 12:45 BP 118 / 79; Pulse 94; Resp 18; Pulse Ox 100% ; bp 13:20 BP 118 / 79; Pulse 97; Resp 20; Pulse Ox 100% ; ap3 14:58 BP 116 / 73; Pulse 97; Resp 17; Pulse Ox 98% ; ap3 16:56 BP 129 / 78; Pulse 78; Resp 18; Pulse Ox 99% ; bp MDM: 10:23 Medical Screening Exam initiated bo1 15:42 Differential diagnosis: Chronic Obstructive Pulmonary Disease pneumonia, Partial bo1 lobectomy. Data reviewed: vital signs, old medical records, lab test result(s), EKG, radiologic studies, plain films. Historians other than the Patient: Family Member: Granddaughter. Home health/Hospice care. 16:04 Special discussion: I discussed with the patient/guardian in detail that at this point bo1 there is no indication for admission to the hospital. It is understood, however, that if the symptoms persist or worsen the patient needs to return immediately for re-evaluation. with the granddaughter and home health/hospice to deliver oxygen tanks and have the concentrator checked. Plan was to have additional tanks delivered this evening for the pt's use. Granddaughter "Lynda" spoken to. Agrees. [phone]. 16:06 Data reviewed: lab test result(s). bo1 16:17 Response to treatment: the patient's symptoms have markedly improved after treatment, bo1 Following being placed on "hospital grade" wall oxygen at the same litre flow, sat is now 98 to 100%. Pt reports he feels much better. 17:25 ED course: Extra oxygen tanks due to be delivered at 6pm. Family is aware. Home [facility] health/hospice is coordinating. 05/13 10:31 Order name: Blood Culture Adult (2) [facility] 05/13 10:31 Order name: CBC with Diff; Complete Time: 12:23 [facility] 05/13 10:31 Order name: CMP; Complete Time: 12:23 [facility] 05/13 10:31 Order name: Lactate w/ 2H reflex if indic.; Complete Time: 11:26 [facility] 05/13 10:53 Order name: Glucose, Ancillary Testing; Complete Time: 11:26 EDMS 05/13 13:21 Order name: Ghost Lactate-NO COLLECT Timer; Complete Time: 13:34 EDMS 05/13 13:55 Order name: Lactate Sepsis 2 HR Follow-up; Complete Time: 13:57 EDMS 05/13 10:31 Order name: Chest Single View XRAY; Complete Time: 11:26 [facility] 05/13 10:31 Order name: EKG; Complete Time: 10:31 [facility] 05/13 10:31 Order name: Accucheck; Complete Time: 10:41 [facility] 05/13 10:31 Order name: Cardiac monitoring; Complete Time: 10:36 [facility] 05/13 10:31 Order name: EKG - Nurse/Tech; Complete Time: 10:36 [facility] 05/13 10:31 Order name: IV Saline Lock - Large Bore; Complete Time: 10:41 [facility] 05/13 10:31 Order name: Labs collected and sent; Complete Time: 10:41 [facility] 05/13 10:31 Order name: O2 Per Protocol; Complete Time: 10:36 [facility] 05/13 10:31 Order name: O2 Sat Monitoring; Complete Time: 10:36 [facility] 05/13 10:31 Order name: Vital Signs; Complete Time: 10:36 [facility] 05/13 11:01 Order name: Labs - recollect needed: recollect green and lavender top; Complete Time: bd 11:17 EC:37 Rate is 108 beats/min. Rhythm is regular. QRS [place] is Normal. IN interval is normal. bo1 QRS interval is normal. QT interval is normal. No Q waves. T waves are Normal. No ST changes noted. Clinical impression: Normal ECG and Mild right atrial enlargement. Interpreted by me. Reviewed by me. Administered Medications: 16:00 Drug: MethylPrednisoLONE IVP 125 mg IVP once Route: IVP; Site: right forearm; bp 16:32 Follow up: Response: No adverse reaction bp Disposition Summary: 05/13/24 17:27 Discharge Ordered Notes: Location: Home bo1 Problem: chronic bo1 Symptoms: have improved bo1 Condition: Stable bo1 Diagnosis - COPD/ Chronic obstructive pulmonary disease, unspecified bo1 - Chronic respiratory failure with hypoxia bo1 Followup: bo1 - With: Private Physician - When: Upon discharge from the Emergency Department - Reason: Recheck today's complaints, Continuance of care Discharge Instructions: - Discharge Summary Sheet bo1 - Chronic Obstructive Pulmonary Disease, [id number] bo1 Forms: - Medication Reconciliation Form bo1 - Antibiotic Education bo1 - Prescription Opioid Use bo1 - Patient Portal Instructions bo1 - Leadership Thank You Letter bo1 Prescriptions: - Prednisone 20 mg Oral Tablet - take 2 tablets ORAL route once daily for 5 days; 10 tablet; Refills: 0, Product bo1 Selection Permitted Signatures: Dispatcher [employer] Janet Horner Audri, RN RN aa5 Luisito Dempsey RN RN bp Justin Almaguer MD MD bo1
[2024-05-13 23:29] VITALS: TEMP 97.7
[2024-05-13 23:46] VITALS: BP 129/78; O2SAT 99
== END 2024-05-13 18:18 | disposition home or self-care (01) ==
LOC: ER 10:16
DX: J96.11 Chronic respiratory failure with hypoxia (principal); J44.9 Chronic obstructive pulmonary disease, unspecified; Z99.81 Dependence on supplemental oxygen; C34.90 Malignant neoplasm of unspecified part of unspecified bronchus or lung; Z90.2 Acquired absence of lung [part of]
CPT/HCPCS: 87040 ×2; 85025; 36415; 82947; 83605 ×2; 80053; 71045; 96374; 99284; J2919